=== PATIENT | female | born 1995 | race African-American/Black ===

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

== ENCOUNTER 2017-06-26 20:01 | Emergency (ER) | payer SELFPAY ==
[~2017-06-26] VITALS: Ht 157.5 cm; Wt 53.5 kg
[~2017-06-26 20:01] MED LIST changes: +ATOM60CA; -FERR-74 PO; +FERR325T18 PO; +HYDR-3781; +OXCA150T
--- OUTSIDE RECORDS SUMMARY | 2017-06-26 20:06 | XMS REPORT | Continuity of Care Document ---
Author Author [employer] Organization [facility] Address Unknown Phone Unavailable Care Team Providers Care Bryologist Name Role Phone [employer] Unavailable Unavailable Problems Problem Status Onset Date Classification Date Reported Comments Source Abrasion (disorder) 2015 Diagnosis 09/19/2015 [facility] Medications Allergies, Adverse Reactions, Alerts Substance Category Reaction Severity Reaction type Status Date Reported Comments Source aripiprazole Assertion Drug allergy [facility] Lisdexamfetamine Assertion Drug allergy [facility] Immunizations Results Vital Signs Encounters Location Location Details Encounter Type Encounter Number Reason For Visit Attending Provider ADM Date DC Date Status Source [facility] [id number] Emergency [id number] Kali Boudreaux 09/14/2015 09/14/2015 Active [facility] Procedures Plan of Care Social History Assessment and Plan Family History Advance Directives Functional Status
--- OUTSIDE RECORDS SUMMARY | 2017-06-26 20:06 | XMS REPORT ---
Author Author [facility] Organization [facility] Address Unknown Phone Unavailable Care Team Providers Care Coach Operator Name Role Phone No Family Physician, . PCP Unavailable Encounter [id number] Date(s): 09/14/15 - 09/15/15 [facility] [phone] [place] [address] [facility] Discharge Disposition: Home Attending Physician: Kali Boudreaux MD Admitting Physician: Kali Boudreaux MD Referring Physician: No Family Physician, . Non-Staff Vital Signs No data available for this section Problem List Diagnosis Diagnosis Type Effective Dates Health Status Clinical Service Informant Abrasion Discharge 09/14/15 Emergency Diagnosis medicine Allergies, Adverse Reactions, Alerts Substance Reaction Severity Status Abilify Active Vyvanse Active Medications No data available for this section Results No data available for this section Immunizations No data available for this section Procedures No data available for this section Social History No data available for this section Assessment and Plan No data available for this section
--- OUTSIDE RECORDS SUMMARY | 2017-06-26 20:06 | XMS REPORT ---
Author Author GUI KAUFMAN [facility] eClinical[employer] Address Unknown Phone Unavailable Care Team Providers Care Concrete Block Mason Name Role Phone GUI KAUFMAN Unavailable Allergies, Adverse Reactions, Alerts Substance Reaction Event Type Vyvanse vomiting and diarrhea Drug Allergy Abilify twitching Drug Allergy Problems Problem Type Condition Code Onset Dates Condition Status Problem Long-term use of high-risk medication Z79.899 Active Problem Vitamin D deficiency E55.9 Active Problem Low hemoglobin D64.9 Active Assessment Schizoaffective disorder F25.9 Active Assessment Bipolar disorder, unspecified F31.9 Active Problem Routine gynecological examination Z01.419 Active Problem General counseling and advice on female contraception Z30.09 Active Problem Iron deficiency anemia due to chronic blood loss D50.0 Active Problem Pain in right knee M25.561 Active Problem Chronic fatigue R53.82 Active Problem High risk medication use Z79.899 Active Problem Pain in left knee M25.562 Active Medications Medication Code System Code Instructions Start Date End Date Status Dosage NuvaRing [facility] [address]-67 0.12-0.015 MG/24HR Vaginal x 3 weeks then out x 1 week August 16, 2015 1 ring Vitamin D [facility] [address]-75 2000 UNIT Orally Once a day 1 tablet Vitamin C [facility] [address]-90 250 MG Orally twice a day July 15, 2015 1 tablet Lamictal [facility] [address]-33 25 MG Orally Twice a day September 20, 2015 1 tablet bid x 7 days then 2 am and 1 pm x 1 week then 2 bid Ferrous Sulfate [facility] [address]-64 325 (65 Fe) MG Orally twice a day July 1 tablet Invega [facility] [address]-15 3 MG Orally Once a day July 27, 2015 1 tablet in the morning HydrOXYzine Pamoate [facility] [address]-89 25 MG Orally twice a day July 27, 2015 1 capsule as needed Procedures Procedure Coding System Code Date Office Visit, Est Pt., Level 4 CPT-4 06943 September 20, 2015 Vital Signs Date/Time: September 20, 2015 Cardiac Monitoring Heart Rate 80 bpm Weight 130.0 lbs Height 63.5 in BMIPercentile 64.02 % Wt Percentile 59.16 % Blood Pressure Diastolic 68 mmHg Blood Pressure Systolic 100 mmHg Results No Known Results Summary Purpose eClinicalWorks Submission
--- OUTSIDE RECORDS SUMMARY | 2017-06-26 20:06 | XMS REPORT ---
Author Author CASSANDRA BUSTAMANTE [facility] Address [address] [place] [address] Care Team Providers Care Exhibits Curator Name Role Phone CASSANDRA BUSTAMANTE Unavailable PROBLEMS Type Condition ICD9-CM Code [id number] Code Onset Dates Condition Status SNOMED Code Problem Iron deficiency anemia due to chronic blood loss D50.0 Active 55450798 Problem Bipolar disorder, unspecified F31.9 Active 70644446 Problem Unspecified mood [affective] disorder F39 Active 773004469 Problem Schizoaffective disorder F25.9 Active 19932670 Problem Seasonal allergic rhinitis due to pollen J30.1 Active 94699390 Problem Amenorrhea N91.2 Active 11600281 Problem Attention deficit hyperactivity disorder (ADHD), combined type F90.2 Active 595091848 Problem Bipolar disorder with depression F31.30 Active 61295540 Problem Generalized anxiety disorder F41.1 Active 16770976 Problem Low hemoglobin D64.9 Active 230930817 Problem Chronic fatigue R53.82 Active 95517345 Problem Long-term use of high-risk medication Z79.899 Active 727303908 Problem Vitamin D deficiency E55.9 Active 62228771 Problem Routine gynecological examination Z01.419 Active 999298824 Problem Pain in left knee M25.562 Active 54704788 Problem High risk medication use Z79.899 Active 990550272 Problem Pain in right knee M25.561 Active 87042309 Problem General counseling and advice on female contraception Z30.09 Active 15183363 ALLERGIES Substance Reaction Event Type Date Status Vyvanse vomiting and diarrhea Drug Allergy Apr, Active Abilify twitching Drug Allergy Apr, Active SOCIAL HISTORY Never Assessed PLAN OF CARE Activity Details Follow Up prn Reason: VITAL SIGNS Height 63.5 in 2016-04-19 Weight 128.4 lbs 2016-04-19 Temperature 98.4 degrees Fahrenheit 2016-04-19 Heart Rate 88 bpm 2016-04-19 Respiratory Rate 20 2016-04-19 BMI 22.39 kg/m2 2016-04-19 Blood pressure systolic 96 mmHg 2016-04-19 Blood pressure diastolic 62 mmHg 2016-04-19 MEDICATIONS Medication Instructions Dosage Frequency Start Date End Date Duration Status LaMICtal XR 200 MG Orally Once a day 1 tablet 24h Mar, 30 day(s ) Active Fluticasone Propionate 50 MCG/ACT Nasally Once a day 1 spray in each nostril 24h Apr, 12 months Active Cetirizine HCl 10 mg Orally Once a day 1 tablet 24h Apr, Jan, 90 days Active Strattera 60 MG Orally at bedtime Once a day 1 capsule 24h Mar, 30 days Active BusPIRone HCl 15 MG Orally Three times a day 1 tablet 8h Mar, 30 days Active RESULTS No Results PROCEDURES No Known procedures IMMUNIZATIONS No Known Immunizations MEDICAL (GENERAL) HISTORY Type Description Date Medical History ADHD Medical History MOOD DISORDER Medical History HX OF MRSA Medical History Schizoaffective disorder, unspecified Medical History Generalized anxiety disorder Medical History Bipolar disorder, unspecified Medical History Attention deficit disorder of childhood without mention of hyperactivity Medical History Leukorrhea, not specified as infective Medical History hx of MRSA of elbow Medical History Schizoaffective disorder, unspecified Medical History Generalized anxiety disorder Medical History Bipolar disorder, unspecified Medical History Major depressive disorder, recurrent episode, moderate Medical History Attention deficit disorder of childhood with hyperactivity [facility] Hospitalization History Overdose [facility] 07/17/15
--- OUTSIDE RECORDS SUMMARY | 2017-06-26 20:07 | XMS REPORT ---
Author Author ZAN Flores [facility] Address Unknown Care Team Providers Care House Wrecker Name Role Phone ZAN Flores Unavailable PROBLEMS Type Condition ICD9-CM Code [id number] Code Onset Dates Condition Status SNOMED Code Problem Iron deficiency anemia due to chronic blood loss D50.0 Active 04511893 Problem Bipolar disorder, unspecified F31.9 Active 05634113 Problem Unspecified mood [affective] disorder F39 Active 043964328 Problem Schizoaffective disorder F25.9 Active 42152629 Problem Seasonal allergic rhinitis due to pollen J30.1 Active 92556425 Problem Amenorrhea N91.2 Active 12617037 Problem Attention deficit hyperactivity disorder (ADHD), combined type F90.2 Active 033665419 Problem Bipolar disorder with depression F31.30 Active 56631348 Problem Generalized anxiety disorder F41.1 Active 46913597 Problem Low hemoglobin D64.9 Active 751090884 Problem Chronic fatigue R53.82 Active 31217095 Problem Long-term use of high-risk medication Z79.899 Active 977109639 Problem Vitamin D deficiency E55.9 Active 14931314 Problem Routine gynecological examination Z01.419 Active 650795360 Problem Pain in left knee M25.562 Active 69377288 Problem High risk medication use Z79.899 Active 329602512 Problem Pain in right knee M25.561 Active 71585911 Problem General counseling and advice on female contraception Z30.09 Active 26796636 ALLERGIES No Information SOCIAL HISTORY Never Assessed PLAN OF CARE VITAL SIGNS MEDICATIONS Medication Instructions Dosage Frequency Start Date End Date Duration Status Strattera 40 mg Orally Once a day-Must follow up with for refills 1 capsule in the morning Apr, 14 days Active RESULTS No Results PROCEDURES No [...] disorder of childhood with hyperactivity [facility] Hospitalization History [facility]dose [facility] 07/17/15
--- OUTSIDE RECORDS SUMMARY | 2017-06-26 20:07 | XMS REPORT ---
Author Author [facility], [facility] eClinicalWorks Address Unknown Phone Unavailable Care Team Providers Care Silk Screen Printer Machine Name Role Phone [facility], [facility] CP Unavailable Allergies No Known Allergies Problems Problem Type Condition Code Onset Dates Condition Status Problem Generalized anxiety disorder 300.02 Active Problem Bipolar disorder, unspecified 296.80 Active Problem Schizoaffective disorder, unspecified 295.70 Active Problem Attention deficit disorder of childhood with hyperactivity 314.01 Active Assessment Unspecified mood [affective] disorder F39 Active Problem Major depressive disorder, recurrent episode, moderate 296.32 Active Problem Leukorrhea, not specified as infective 623.5 Active Medications No Known Medications Procedures Procedure Coding System Code Date PATIENT AND FAMILY SUPPORT CPT-4 S0280 Mar 10, 2015 Results No Known Results Summary Purpose eClinicalWorks Submission
--- OUTSIDE RECORDS SUMMARY | 2017-06-26 20:07 | XMS REPORT ---
Author Author [facility], [facility] eClinicalWorks Address Unknown Phone Unavailable Care Team Providers Care Project Analyst Name Role Phone [facility], [facility] CP Unavailable Allergies No Known [...] Medications Procedures Procedure Coding System Code Date HEALTH PROMOTION CPT-4 S0280 Jan 04, 2015 Results No Known Results Summary Purpose eClinicalWorks Submission
--- OUTSIDE RECORDS SUMMARY | 2017-06-26 20:07 | XMS REPORT ---
Author Author [facility], [facility] eClinicalWorks Address Unknown Phone Unavailable Care Team Providers Care Riveting Machine Operator Tape Control Name Role Phone [facility], [facility] CP Unavailable Allergies No Known Allergies [...] Medications Procedures Procedure Coding System Code Date CARE COORDINATION CPT-4 S0281 Dec 30, 2014 Results No Known Results Summary Purpose eClinicalWorks Submission
--- OUTSIDE RECORDS SUMMARY | 2017-06-26 20:07 | XMS REPORT ---
Author Author ZAN KU Organization [employer] Address Unknown Phone Unavailable Care Team Providers Care Price Economist Name Role Phone ZAN KU Unavailable Allergies No Known Allergies Problems Problem Type Condition Code Onset Dates Condition Status Problem Generalized anxiety disorder 300.02 Active Problem Bipolar disorder, unspecified 296.80 Active Problem Schizoaffective disorder, unspecified 295.70 Active Problem Attention deficit disorder of childhood with hyperactivity 314.01 Active Problem Major depressive disorder, recurrent episode, moderate 296.32 Active Problem Leukorrhea, not specified as infective 623.5 Active Medications Medication Code System Code Instructions Start Date End Date Status Dosage Sertraline HCl [facility] [address]-66 100 MG Orally Once a day Nov 10, 2014 1.5 tablets Results No Known Results Summary Purpose eClinicalWorks Submission
--- OUTSIDE RECORDS SUMMARY | 2017-06-26 20:07 | XMS REPORT ---
Author Author ZAN Flores [facility] Address Unknown Care Team Providers Care Quotation Checker Name Role Phone AZN Flores Unavailable PROBLEMS Type Condition ICD9-CM Code [id number] Code Onset Dates Condition Status SNOMED Code Problem Iron deficiency anemia due to chronic blood loss D50.0 Active 08494699 Problem Bipolar disorder, unspecified F31.9 Active 16825799 Problem Unspecified mood [affective] disorder F39 Active 392821950 Problem Schizoaffective disorder F25.9 Active 98717370 Problem Seasonal allergic rhinitis due to pollen J30.1 Active 50979641 Problem Amenorrhea N91.2 Active 98551582 Problem Attention deficit hyperactivity disorder (ADHD), combined type F90.2 Active 310921856 Problem Bipolar disorder with depression F31.30 Active 33995506 Problem Generalized anxiety disorder F41.1 Active 00667663 Problem Low hemoglobin D64.9 Active 352454916 Problem Chronic fatigue R53.82 Active 22793125 Problem Long-term use of high-risk medication Z79.899 Active 865798056 Problem Vitamin D deficiency E55.9 Active 89211435 Problem Routine gynecological examination Z01.419 Active 248134909 Problem Pain in left knee M25.562 Active 59638388 Problem High risk medication use Z79.899 Active 971627812 Problem Pain in right knee M25.561 Active 39224888 Problem General counseling and advice on female contraception Z30.09 Active 08351542 ALLERGIES Substance Reaction Event Type Date Status Vyvanse vomiting and diarrhea Drug Allergy May, Active Abilify twitching Drug Allergy May, Active SOCIAL HISTORY Never Assessed PLAN OF CARE Activity Details Follow Up 4 Weeks Reason: VITAL SIGNS Height 63.5 in 2016-05-09 Weight 123.4 lbs 2016-05-09 Heart Rate 80 bpm 2016-05-09 Respiratory Rate 20 2016-05-09 BMI 21.51 kg/m2 2016-05-09 Blood pressure systolic 102 mmHg 2016-05-09 Blood pressure diastolic 73 mmHg 2016-05-09 MEDICATIONS Medication Instructions Dosage Frequency Start Date End Date Duration Status HydrOXYzine Pamoate 25 MG Orally twice a day 1 capsule as needed 12h July 30 days Active Fluticasone Propionate 50 MCG/ACT Nasally Once a day 1 spray in each nostril 24h Apr, 12 months Active Cetirizine HCl 10 mg Orally Once a day 1 tablet 24h Apr, Jan, 90 days Active BusPIRone HCl 15 MG Orally Three times a day 1 tablet 8h Mar, 30 days Active Strattera 60 MG Orally at bedtime Once a day 1 capsule 24h Mar, 30 days Active Trileptal 150 MG Orally twice a day 1 tablet 12h Jan, 30 days Active LaMICtal XR 200 MG Orally Once a day 1 tablet 24h Mar, 30 day(s ) Active RESULTS No Results PROCEDURES No Known [...] disorder of childhood with hyperactivity Hospitalization History [facility] Mental Breakdown 05/2015 Hospitalization History Overdose [facility] 07/17/15
--- OUTSIDE RECORDS SUMMARY | 2017-06-26 20:07 | XMS REPORT ---
Author Author ZAN KU Organization [employer] Address Unknown Phone Unavailable Care Team Providers Care Burlapper Name Role Phone ZAN KU Unavailable Allergies No Known Allergies Problems Problem Type Condition Code Onset Dates Condition Status Problem Long-term use of high-risk medication Z79.899 Active Problem Vitamin D deficiency E55.9 Active Problem Low hemoglobin D64.9 Active Problem Routine gynecological examination Z01.419 Active [...] Instructions Start Date End Date Status Dosage Paxil [facility] [address]-94 20 mg Orally Once a day July 27, 2015 1 tablet in the morning Results No Known Results Summary Purpose eClinicalWorks Submission
--- OUTSIDE RECORDS SUMMARY | 2017-06-26 20:07 | XMS REPORT ---
Author Author ZAN KU [facility] Address Unknown Care Team Providers Care Dev Manager Name Role Phone ZAN KU Unavailable PROBLEMS Type Condition ICD9-CM Code [id number] Code Onset Dates Condition Status SNOMED Code Problem Low hemoglobin D64.9 Active 027146433 Problem Chronic fatigue R53.82 Active 03103779 Problem Vitamin D deficiency E55.9 Active 17769301 Problem Long-term use of high-risk medication Z79.899 Active 057229718 Problem Iron deficiency anemia due to chronic blood loss D50.0 Active 60600959 Problem Routine gynecological examination Z01.419 Active 396010556 Problem Pain in left knee M25.562 Active 11314254 Problem Pain in right knee M25.561 Active 77917080 Problem General counseling and advice on female contraception Z30.09 Active 95985029 Problem High risk medication use Z79.899 Active 757816901 ALLERGIES Unknown Allergies SOCIAL HISTORY No smoking Hx information available PLAN OF CARE VITAL SIGNS MEDICATIONS Medication Instructions Dosage Frequency Start Date End Date Duration Status BusPIRone HCl 5 mg Orally. must attend appt for further refills Three times a day 1 tablet 8h 12 Nov, 2015 Active RESULTS No Results PROCEDURES No Known procedures IMMUNIZATIONS No Known Immunizations
--- OUTSIDE RECORDS SUMMARY | 2017-06-26 20:08 | XMS REPORT ---
Author Author ZAN KU [facility] Address Unknown Care Team Providers Care Guest Relations Executive Name Role Phone ZAN KU Unavailable PROBLEMS Type Condition ICD9-CM Code [id number] Code Onset Dates Condition Status SNOMED Code Problem Pain in right knee M25.561 Active 92846667 Problem High risk medication use Z79.899 Active 236545343 Problem Pain in left knee M25.562 Active 55380991 Problem Long-term use of high-risk medication Z79.899 Active 850552505 Problem Low hemoglobin D64.9 Active 038190855 Problem Vitamin D deficiency E55.9 Active 49179903 Problem Chronic fatigue R53.82 Active 06118622 Problem Unspecified mood [affective] disorder F39 Active 956785956 Problem Bipolar disorder, unspecified F31.9 Active 90944637 Problem Routine gynecological examination Z01.419 Active 323222281 Problem General counseling and advice on female contraception Z30.09 Active 84630366 Problem Attention deficit hyperactivity disorder (ADHD), combined type F90.2 Active 814768064 Problem Iron deficiency anemia due to chronic blood loss D50.0 Active 34767486 ALLERGIES Unknown Allergies SOCIAL HISTORY No smoking Hx information available PLAN OF CARE VITAL SIGNS MEDICATIONS Unknown Medications RESULTS No Results PROCEDURES No Known procedures IMMUNIZATIONS No Known Immunizations
--- OUTSIDE RECORDS SUMMARY | 2017-06-26 20:08 | XMS REPORT ---
Author Author [facility], [facility] eClinicalWorks Address Unknown Phone Unavailable Care Team Providers Care Satellite Manager Name Role Phone [facility], [facility] CP Unavailable Allergies No Known Allergies Problems [...] System Code Date HEALTH PROMOTION CPT-4 S0280 Apr 14, 2015 Results No Known Results Summary Purpose eClinicalWorks Submission
--- OUTSIDE RECORDS SUMMARY | 2017-06-26 20:08 | XMS REPORT ---
Author Author ZAN KU Organization eClinicalWorks Address Unknown Phone Unavailable Care Team Providers Care Print Production Coordinator Name Role Phone ZAN KU Unavailable Allergies No Known Allergies Problems Problem Type Condition ICD-9 Code Onset Dates Condition Status Problem Generalized [...] Date End Date Status Dosage Sertraline HCl [facility] [address]-66 100 MG Orally Once a day September 27, 2014 1 tablet Concerta [facility] [address]-40 18 MG Orally Once a day 1 tablet in the morning Lamictal [facility] [address]-63 100 MG Orally Once a day q August 23, 2014 1 tablet Results No Known Results Summary Purpose eClinicalWorks Submission
--- OUTSIDE RECORDS SUMMARY | 2017-06-26 20:08 | XMS REPORT ---
Author Author [facility], [facility] eClinicalWorks Address Unknown Phone Unavailable Care Team Providers Care Distribution Operations Supervisor Name Role Phone [facility], [facility] CP Unavailable Allergies No Known Allergies Problems Problem Type Condition Code Onset Dates Condition Status Problem Generalized anxiety disorder 300.02 Active Problem Bipolar disorder, unspecified 296.80 Active Problem Schizoaffective disorder, unspecified 295.70 Active Problem Attention deficit disorder of childhood with hyperactivity 314.01 Active Assessment Bipolar disorder, unspecified F31.9 Active Problem Major depressive disorder, recurrent episode, moderate 296.32 Active Problem Leukorrhea, not specified as infective 623.5 Active Medications No Known Medications Procedures Procedure Coding System Code Date CARE COORDINATION CPT-4 S0281 Feb 01, 2015 Results No Known Results Summary Purpose eClinicalWorks Submission
--- OUTSIDE RECORDS SUMMARY | 2017-06-26 20:08 | XMS REPORT ---
Author Author [facility], [facility] eClinicalWorks Address Unknown Phone Unavailable Care Team Providers Care Machine Hoop Maker Helper Name Role Phone [facility], [facility] CP Unavailable Allergies No Known [...] Code Date CARE COORDINATION CPT-4 S0281 Dec 28, 2014 Results No Known Results Summary Purpose eClinicalWorks Submission
--- OUTSIDE RECORDS SUMMARY | 2017-06-26 20:08 | XMS REPORT ---
Author Author ZAN KU Organization eClinicalWorks Address Unknown Phone Unavailable Care Team Providers Care Rivet Heater Gas Name Role Phone ZAN KU Unavailable Allergies [...] Instructions Start Date End Date Status Dosage Concerta [facility] [address]-43 27 MG Briana to sign for Matthew TAKE ONE TABLET BY MOUTH ONCE DAILY IN THE MORNING Results No Known Results Summary Purpose eClinicalWorks Submission
--- OUTSIDE RECORDS SUMMARY | 2017-06-26 20:08 | XMS REPORT ---
Author Author ZAN KU Organization eClinicalWorks Address Unknown Phone Unavailable Care Team Providers Care Coal Tram Driver Name Role Phone ZAN KU Unavailable Allergies [...] infective 623.5 Active Medications No Known Medications Results No Known Results Summary Purpose eClinicalWorks Submission
--- OUTSIDE RECORDS SUMMARY | 2017-06-26 20:08 | XMS REPORT ---
Author Author [facility], [facility] eClinicalWorks Address Unknown Phone Unavailable Care Team Providers Care Turf Grower Name Role Phone [facility], [facility] CP Unavailable Allergies No Known Allergies [...] Code Date CARE COORDINATION CPT-4 S0281 Dec 29, 2014 Results No Known Results Summary Purpose eClinicalWorks Submission
--- OUTSIDE RECORDS SUMMARY | 2017-06-26 20:08 | XMS REPORT ---
Author Author ZAN KU Organization eClinicalWorks Address Unknown Phone Unavailable Care Team Providers Care Order Runner Name Role Phone ZAN KU CP Unavailable Allergies, Adverse Reactions, Alerts Substance Reaction Event Type Vyvanse vomiting and diarrhea Drug Allergy Abilify twitching Drug Allergy Vyvanse 30 Mg Capsule diarrhea and vomiting Non Drug Allergy Problems Problem Type Condition Code Onset Dates Condition Status Assessment Attention deficit hyperactivity disorder (ADHD), combined type F90.2 Active Problem Generalized anxiety disorder 300.02 Active Problem Bipolar disorder, unspecified 296.80 Active Problem Schizoaffective disorder, unspecified 295.70 Active Problem Attention deficit disorder of childhood with hyperactivity 314.01 Active Assessment Schizoaffective disorder F25.9 Active Problem Major depressive disorder, recurrent episode, moderate 296.32 Active Problem Leukorrhea, not specified as infective 623.5 Active Medications Medication Code System Code Instructions Start Date End Date Status Dosage Concerta [facility] 16387949988 27 MG TAKE ONE TABLET BY MOUTH ONCE DAILY IN THE MORNING Lamictal [facility] [address]-16 150 MG Orally once a day Dec 10, 2014 1 tablet Sertraline HCl [facility] [address]-09 100 MG Orally Once a day Nov 10, 2014 1.5 tablets Procedures Procedure Coding System Code Date Office Visit, Est Pt., Level 3 CPT-4 69458 Dec 10, 2014 Vital Signs Date/Time: Dec 10, 2014 Cardiac Monitoring Heart Rate 92 bpm Weight 116.6 lbs Height 63.3 in Ht Percentile 36.21 % BMI 20.46 Index Blood Pressure Diastolic 60 mmHg Blood Pressure Systolic 90 mmHg BMIPercentile 40.79 % Wt Percentile 36.1 % Results No Known Results Summary Purpose eClinicalWorks Submission
--- OUTSIDE RECORDS SUMMARY | 2017-06-26 20:08 | XMS REPORT ---
Author Author ZAN KU Organization eClinicalWorks Address Unknown Phone Unavailable Care Team Providers Care Benefits Sales Consultant Name Role Phone ZAN KU CP Unavailable Allergies, Adverse Reactions, Alerts Substance Reaction Event Type Vyvanse vomiting and diarrhea Drug Allergy Abilify twitching Drug Allergy Vyvanse 30 Mg Capsule diarrhea and vomiting Non Drug Allergy Problems Problem Type Condition Code Onset Dates Condition Status Assessment Episodic mood disorder 296.90 Active Assessment Bipolar disorder, unspecified F31.9 Active Problem Generalized anxiety disorder 300.02 Active Problem Bipolar disorder, unspecified 296.80 Active Problem Schizoaffective disorder, unspecified 295.70 Active Problem Attention deficit disorder of childhood with hyperactivity 314.01 Active Assessment Attention deficit hyperactivity disorder (ADHD), combined type F90.2 Active Problem Major depressive disorder, recurrent episode, moderate 296.32 Active Problem Leukorrhea, not specified as infective 623.5 Active Medications Medication Code System Code Instructions Start Date End Date Status Dosage Concerta [facility] [address]-[address] Steve to sign for Matthew TAKE ONE TABLET BY MOUTH ONCE DAILY IN THE MORNING Trileptal [facility] [address]-31 150 MG Orally twice a day Jan 07, 2015 1 tablet Sertraline HCl [facility] [address]-55 100 MG Orally Once a day Nov 10, 2014 1.5 tablets Procedures Procedure Coding System Code Date Office Visit, Est Pt., Level 3 CPT-4 28156 Feb 11, 2015 Vital Signs Date/Time: Feb 11, 2015 Cardiac Monitoring Heart Rate 76 bpm Weight 118.8 lbs Height 63.5 in Ht Percentile 39.02 % BMI 20.71 Index Blood Pressure Diastolic 80 mmHg Blood Pressure Systolic 110 mmHg BMIPercentile 43.44 % Wt Percentile 40.15 % Results No Known Results Summary Purpose eClinicalWorks Submission
--- OUTSIDE RECORDS SUMMARY | 2017-06-26 20:08 | XMS REPORT ---
Author [facility] Address [address] [place] [address] Care Team Providers Care Privacy Director Name Role Phone ZAN DUBOIS Unavailable PROBLEMS Type Condition ICD9-CM Code [id number] Code Onset Dates Condition Status SNOMED Code Problem Pain in right knee M25.561 Active 75052143 Problem High risk medication use Z79.899 Active 658726044 Problem Pain in left knee M25.562 Active 79974810 Problem Long-term use of high-risk medication Z79.899 Active 312717829 Problem Low hemoglobin D64.9 Active 198580373 Problem Vitamin D deficiency E55.9 Active 63030629 Problem Chronic fatigue R53.82 Active 75346007 Problem Unspecified mood [affective] disorder F39 Active 519841935 Problem Bipolar disorder, unspecified F31.9 Active 81181715 Problem Routine gynecological examination Z01.419 Active 330230117 Problem General counseling and advice on female contraception Z30.09 Active 76192329 Problem Attention deficit hyperactivity disorder (ADHD), combined type F90.2 Active 278758480 Problem Iron deficiency anemia due to chronic blood loss D50.0 Active 69190231 ALLERGIES Unknown Allergies SOCIAL HISTORY No smoking Hx information available PLAN OF CARE VITAL SIGNS MEDICATIONS Unknown Medications RESULTS No Results PROCEDURES No Known procedures IMMUNIZATIONS No Known Immunizations
--- OUTSIDE RECORDS SUMMARY | 2017-06-26 20:08 | XMS REPORT ---
Author Author ZAN KU [facility] Address Unknown Care Team Providers Care Hazardous Substances Scientist Name Role Phone ZAN KU Unavailable PROBLEMS Type Condition ICD9-CM Code [id number] Code Onset Dates Condition Status SNOMED Code Problem Pain in right knee M25.561 Active 75197289 Problem High risk medication use Z79.899 Active 661463724 Problem Pain in left knee M25.562 Active 85814650 Problem Long-term use of high-risk medication Z79.899 Active 110038612 Problem Low hemoglobin D64.9 Active 529251533 Problem Vitamin D deficiency E55.9 Active 84570711 Problem Chronic fatigue R53.82 Active 81347152 Problem Unspecified mood [affective] disorder F39 Active 898462259 Problem Bipolar disorder, unspecified F31.9 Active 31800053 Problem Routine gynecological examination Z01.419 Active 435614916 Problem General counseling and advice on female contraception Z30.09 Active 82467325 Problem Attention deficit hyperactivity disorder (ADHD), combined type F90.2 Active 236539044 Problem Iron deficiency anemia due to chronic blood loss D50.0 Active 79255948 ALLERGIES Unknown Allergies SOCIAL HISTORY No smoking Hx information available PLAN OF CARE VITAL SIGNS MEDICATIONS Unknown Medications RESULTS No Results PROCEDURES No Known procedures IMMUNIZATIONS No Known Immunizations
--- OUTSIDE RECORDS SUMMARY | 2017-06-26 20:08 | XMS REPORT ---
Author Author [facility], [facility] eClinicalWorks Address Unknown Phone Unavailable Care Team Providers Care Claim Adjuster Name Role Phone [facility], [facility] CP Unavailable Allergies No Known Allergies Problems Problem Type Condition ICD-9 Code Onset Dates Condition Status Problem Generalized anxiety disorder 300.02 Active Problem Bipolar disorder, unspecified 296.80 Active Problem Schizoaffective disorder, unspecified 295.70 Active Problem Attention deficit disorder of childhood with hyperactivity 314.01 Active Assessment Affective disorder 296.90 Active Problem Major depressive disorder, recurrent episode, moderate 296.32 Active Problem Leukorrhea, not specified as infective 623.5 Active Medications No Known Medications Procedures Procedure Coding System Code Date CARE COORDINATION CPT-4 S0281 Oct 22, 2014 Results No Known Results Summary Purpose eClinicalWorks Submission
--- OUTSIDE RECORDS SUMMARY | 2017-06-26 20:08 | XMS REPORT ---
Author Author ZAN KU Organization eClinicalWorks Address Unknown Phone Unavailable Care Team Providers Care Clerk Typist Name Role Phone ZAN KU Unavailable Allergies [...]
--- OUTSIDE RECORDS SUMMARY | 2017-06-26 20:08 | XMS REPORT ---
Author Author GUI KAUFMAN [facility] Address [address] [place] [address] Care Team Providers Care Voyage Management System Operator Name Role Phone GUI KAUFMAN Unavailable PROBLEMS Type Condition ICD9-CM Code [id number] Code Onset Dates Condition Status SNOMED Code Problem Pain in left knee M25.562 Active 54293543 Problem General counseling and advice on female contraception Z30.09 Active 48048485 Problem High risk medication use Z79.899 Active 081133286 Problem Amenorrhea N91.2 Active 18466072 Problem Unspecified mood [affective] disorder F39 Active 296930394 Problem Iron deficiency anemia due to chronic blood loss D50.0 Active 21460209 Problem Routine gynecological examination Z01.419 Active 533018643 Problem Bipolar disorder, unspecified F31.9 Active 17790244 Problem Attention deficit hyperactivity disorder (ADHD), combined type F90.2 Active 906816585 Problem Low hemoglobin D64.9 Active 851953502 Problem Vitamin D deficiency E55.9 Active 14056593 Assessment Amenorrhea N91.2 Jan, Active 16091095 Problem Chronic fatigue R53.82 Active 77625382 Problem Long-term use of high-risk medication Z79.899 Active 985737122 Problem Pain in right knee M25.561 Active 79671311 ALLERGIES Substance Reaction Event Type Date Status Vyvanse vomiting and diarrhea Drug Allergy Jan, Active Abilify twitching Drug Allergy Jan, Active SOCIAL HISTORY No smoking Hx information available PLAN OF CARE VITAL SIGNS Height 63.5 in 2016-01-31 Weight 131 lbs 2016-01-31 Heart Rate 90 bpm 2016-01-31 Respiratory Rate 20 2016-01-31 BMI 22.84 kg/m2 2016-01-31 Blood pressure systolic 100 mmHg 2016-01-31 Blood pressure diastolic 60 mmHg 2016-01-31 MEDICATIONS Medication Instructions Dosage Frequency Start Date End Date Duration Status Lamictal 150 MG Orally twice a day 0.5 tablet 12h Dec, 30 day(s ) Active Invega 6 MG Orally Once a day 1 tablet in the morning 24h Dec, 30 day(s) Active BusPIRone HCl 5 mg Orally. must attend appt for further refills Three times a day 1 tablet 8h 12 Nov, 2015 Active RESULTS Name Result Date Reference Range TEST, URINE (IN HOUSE) 2016-01-31 RESULTS negative Lot # [id number] Control + Exp date 05/2017 TEST, SERUM (QUAL) 2016-01-31 hCG,Beta Subunit,Qual,Serum Negative Negative <6 CBC 2016-01-31 WBC 7.9 3.4-10.8 RBC 4.35 3.77-5.28 Hemoglobin 12.5 11.1-15.9 Hematocrit 38.6 34.0-46.6 MCV 89 79-97 MCH 28.7 26.6-33.0 MCHC 32.4 31.5-35.7 RDW 15.2 12.3-15.4 Platelets 311 150-379 Neutrophils 54 Lymphs 31 Monocytes 8 Eos 7 Basos 0 Neutrophils (Absolute) 4.3 1.4-7.0 Lymphs (Absolute) 2.4 0.7-3.1 Monocytes(Absolute) 0.6 0.1-0.9 Eos (Absolute) 0.5 0.0-0.4 Baso (Absolute) 0.0 0.0-0.2 Immature Granulocytes 0 Immature Grans (Abs) 0.0 0.0-0.1 VITAMIN D, 25-H 2016-01-31 Vitamin D, 25-Hydroxy 42.6 30.0-100.0 PROCEDURES Procedure Date Ordered Related Diagnosis Body Site URINE TEST Jan 31[facility] 2016 [facility] Jan [facility], 2016 VENIPUNCT, ROUTINE* Jan 31, 2016 CHORIONIC GONADOTROPIN ASSAY Jan 31, 2016 Office Visit, Est Pt., Level 3 Jan 31, 2016 IMMUNIZATIONS No Known Immunizations
--- OUTSIDE RECORDS SUMMARY | 2017-06-26 20:09 | XMS REPORT ---
Author Author ZAN KU Organization [facility] Address Unknown Care Team Providers Care Delicatessen Goods Stock Clerk Name Role Phone KINGS ZAN Unavailable PROBLEMS Type Condition ICD9-CM Code [id number] Code Onset Dates Condition Status SNOMED Code Problem Iron deficiency anemia due to chronic blood loss D50.0 Active 80556161 Problem Bipolar disorder, unspecified F31.9 Active 20888256 Problem Attention deficit hyperactivity disorder (ADHD), combined type F90.2 Active 946860106 Problem Schizoaffective disorder F25.9 Active 62246499 Problem Seasonal allergic rhinitis due to pollen J30.1 Active 23027603 Problem Amenorrhea N91.2 Active 84894338 Problem Unspecified mood [affective] disorder F39 Active 312343590 Problem Bipolar disorder with depression F31.30 Active 69458011 Problem Generalized anxiety disorder F41.1 Active 55016938 Problem Low hemoglobin D64.9 Active 957013539 Problem Vitamin D deficiency E55.9 Active 41507220 Problem Long-term use of high-risk medication Z79.899 Active 315227988 Problem Pain in left knee M25.562 Active 32409145 Problem High risk medication use Z79.899 Active 543214719 Problem Chronic fatigue R53.82 Active 56263830 Problem General counseling and advice on female contraception Z30.09 Active 04197164 Problem Pain in right knee M25.561 Active 73151529 Problem Routine gynecological examination Z01.419 Active 291883135 ALLERGIES Unknown Allergies SOCIAL HISTORY No smoking Hx information available PLAN OF CARE VITAL SIGNS MEDICATIONS Unknown Medications RESULTS Name Result Date Reference Range PROLACTIN 2016-03-02 Prolactin 78.9 4.8-23.3 PROCEDURES Procedure Date Ordered Related Diagnosis Body Site LAB NOT BILLED BY [facility] Mar 02, 2016 VENIPUNCT, ROUTINE* Mar 02, 2016 IMMUNIZATIONS No Known Immunizations
--- OUTSIDE RECORDS SUMMARY | 2017-06-26 20:09 | XMS REPORT ---
Author Author ZAN KU Organization eClinicalWorks Address Unknown Phone Unavailable Care Team Providers Care Residential Specialist Name Role Phone ZAN KU Unavailable Allergies [...] Instructions Start Date End Date Status Dosage Lamictal [facility] [address]-43 25 MG Orally Twice a day September 20, 2015 1 tablet bid x 7 days then 2 am and 1 pm x 1 week then 2 bid Results No Known Results Summary Purpose eClinicalWorks Submission
--- OUTSIDE RECORDS SUMMARY | 2017-06-26 20:09 | XMS REPORT ---
Author Author ZAN KU Organization eClinicalWorks Address Unknown Phone Unavailable Care Team Providers Care Telephone Mechanic Name Role Phone ZAN KU CP Unavailable Allergies, Adverse Reactions, Alerts Substance Reaction Event Type Vyvanse vomiting and diarrhea Drug Allergy Abilify twitching Drug Allergy Vyvanse 30 Mg Capsule diarrhea and vomiting Non Drug Allergy Problems Problem Type Condition ICD-9 Code Onset Dates Condition Status Assessment Generalized anxiety disorder 300.02 Active Assessment Attention deficit disorder of childhood with hyperactivity 314.01 Active Problem Generalized anxiety disorder 300.02 Active Problem Bipolar disorder, unspecified 296.80 Active Problem Schizoaffective disorder, unspecified 295.70 Active Problem Attention deficit disorder of childhood with hyperactivity 314.01 Active Assessment Schizoaffective disorder, unspecified 295.70 Active Problem Major depressive disorder, recurrent episode, moderate 296.32 Active Problem Leukorrhea, not specified as infective 623.5 Active Medications Medication Code System Code Instructions Start Date End Date Status Dosage Concerta [facility] [address]-41 27 MG Orally Once a day Nov 10, 2014 Dec 10, 2014 1 tablet in the morning Sertraline HCl [facility] [address]-23 100 MG Orally Once a day Nov 10, 2014 1.5 tablets Lamictal [facility] [address]-47 100 MG Orally Once a day August 23, 2014 1 tablet Procedures Procedure Coding System Code Date Office Visit, Est Pt., Level 3 CPT-4 57344 Nov 10, 2014 Vital Signs Date/Time: Nov 10, 2014 Temperature 98.3 F BMIPercentile 38.12 % Weight 115.0 lbs Height 63.2 in BMI 20.24 Index Blood Pressure Diastolic 65 mmHg Blood Pressure Systolic 100 mmHg Cardiac Monitoring Heart Rate 88 bpm Wt Percentile 32.93 % Ht Percentile 34.87 % Results No Known Results Summary Purpose eClinicalWorks Submission
--- OUTSIDE RECORDS SUMMARY | 2017-06-26 20:09 | XMS REPORT ---
Author Author ZAN KU Organization eClinicalWorks Address Unknown Phone Unavailable Care Team Providers Care Composite Layup Worker Name Role Phone ZAN KU CP Unavailable Allergies, Adverse Reactions, Alerts Substance Reaction Event Type Vyvanse vomiting and diarrhea Drug Allergy Abilify twitching Drug Allergy Vyvanse 30 Mg Capsule diarrhea and vomiting Non Drug Allergy Problems Problem Type Condition Code Onset Dates Condition Status Assessment Bipolar disorder, unspecified F31.9 Active Problem [...] Instructions Start Date End Date Status Dosage Trileptal [facility] [address]-00 150 MG Orally twice a day Jan 07, 2015 as directed Sertraline HCl [facility] [address]-83 100 MG Orally Once a day Nov 10, 2014 1.5 tablets Concerta [facility] [address]-[address] Steve to sign for Matthew TAKE ONE TABLET BY MOUTH ONCE DAILY IN THE MORNING Procedures Procedure Coding System Code Date Office Visit, Est Pt., Level 3 CPT-4 66621 Jan 07, 2015 Vital Signs Date/Time: Jan 07, 2015 Cardiac Monitoring Heart Rate 102 bpm Weight 117.9 lbs Height 63.2 in Ht Percentile 34.69 % BMI 20.75 Index Blood Pressure Diastolic 65 mmHg Blood Pressure Systolic 100 mmHg BMIPercentile 44.37 % Wt Percentile 38.57 % Results No Known Results Summary Purpose eClinicalWorks Submission
--- OUTSIDE RECORDS SUMMARY | 2017-06-26 20:09 | XMS REPORT ---
Author Author [facility], [facility] eClinicalWorks Address Unknown Phone Unavailable Care Team Providers Care Councilperson Name Role Phone [facility], [facility] CP Unavailable Allergies No Known Allergies [...] PATIENT AND FAMILY SUPPORT CPT-4 S0280 Mar 28, 2015 Results No Known Results Summary Purpose eClinicalWorks Submission
--- OUTSIDE RECORDS SUMMARY | 2017-06-26 20:09 | XMS REPORT ---
Author Author [facility], [facility] eClinicalWorks Address Unknown Phone Unavailable Care Team Providers Care Exploration Geologist Name Role Phone [facility], [facility] CP Unavailable Allergies No Known Allergies [...] System Code Date HEALTH PROMOTION CPT-4 S0280 Nov 25, 2014 Results No Known Results Summary Purpose eClinicalWorks Submission
--- OUTSIDE RECORDS SUMMARY | 2017-06-26 20:09 | XMS REPORT ---
Author Author [facility], [facility] eClinicalWorks Address Unknown Phone Unavailable Care Team Providers Care Structural Drafter Name Role Phone [facility], [facility] CP Unavailable Allergies No Known [...] Code Date HEALTH PROMOTION CPT-4 S0280 Jan 07, 2015 Results No Known Results Summary Purpose eClinicalWorks Submission
--- OUTSIDE RECORDS SUMMARY | 2017-06-26 20:09 | XMS REPORT ---
Author Author [facility], [facility] eClinicalWorks Address Unknown Phone Unavailable Care Team Providers Care Director Of Annual Giving Name Role Phone [facility], [facility] CP Unavailable Allergies No Known Allergies [...] System Code Date HEALTH PROMOTION CPT-4 S0280 Feb 07, 2015 Results No Known Results Summary Purpose eClinicalWorks Submission
--- OUTSIDE RECORDS SUMMARY | 2017-06-26 20:09 | XMS REPORT ---
Author Author ZAN KU [facility] Address Unknown Care Team Providers Care Distribution Agent Name Role Phone ZAN KU Unavailable PROBLEMS Type Condition ICD9-CM Code [id number] Code Onset Dates Condition Status SNOMED Code Problem Iron deficiency anemia due to chronic blood loss D50.0 Active 01887173 Problem Bipolar disorder, unspecified F31.9 Active 29189573 Problem Attention deficit hyperactivity disorder (ADHD), combined type F90.2 Active 642511925 Problem Schizoaffective disorder F25.9 Active 93089929 Problem Seasonal allergic rhinitis due to pollen J30.1 Active 60170938 Problem Amenorrhea N91.2 Active 20616130 Problem Unspecified mood [affective] disorder F39 Active 251779502 Problem Bipolar disorder with depression F31.30 Active 57179823 Problem Generalized anxiety disorder F41.1 Active 87590180 Problem Low hemoglobin D64.9 Active 793917566 Problem Vitamin D deficiency E55.9 Active 35037914 Problem Long-term use of high-risk medication Z79.899 Active 862772178 Problem Pain in left knee M25.562 Active 10097578 Problem High risk medication use Z79.899 Active 620588910 Problem Chronic fatigue R53.82 Active 08454871 Problem General counseling and advice on female contraception Z30.09 Active 19384075 Problem Pain in right knee M25.561 Active 23263255 Problem Routine gynecological examination Z01.419 Active 434880083 ALLERGIES Unknown Allergies SOCIAL HISTORY No smoking Hx information available PLAN OF CARE VITAL SIGNS MEDICATIONS Unknown Medications RESULTS No Results PROCEDURES No Known procedures IMMUNIZATIONS No Known Immunizations
--- OUTSIDE RECORDS SUMMARY | 2017-06-26 20:09 | XMS REPORT ---
Author Author ZAN KU Organization [employer] Address Unknown Phone Unavailable Care Team Providers Care Ingredient Handler Name Role Phone ZAN KU Unavailable Allergies [...]
--- OUTSIDE RECORDS SUMMARY | 2017-06-26 20:09 | XMS REPORT ---
Author Author [facility], [facility] [employer] Address Unknown Phone Unavailable Care Team Providers Care Contact Center Analyst Name Role Phone [facility], [facility] CP Unavailable Allergies No Known Allergies Problems [...] Code Date HEALTH PROMOTION CPT-4 S0280 Feb 04, 2015 Results No Known Results Summary Purpose eClinicalWorks Submission
--- OUTSIDE RECORDS SUMMARY | 2017-06-26 20:09 | XMS REPORT ---
Author Author CHARLIE FRIAS [employer] Address Unknown Phone Unavailable Care Team Providers Care Open Hearth Worker Name Role Phone CHARLIE FRIAS CP Unavailable Allergies, Adverse Reactions, Alerts Substance Reaction Event Type Vyvanse vomiting and diarrhea Drug Allergy Abilify twitching Drug Allergy Vyvanse 30 Mg Capsule diarrhea and vomiting Non Drug Allergy Problems Problem Type Condition Code Onset Dates Condition Status Assessment High risk sexual behavior Z72.51 Active Problem Generalized anxiety disorder 300.02 Active Problem Bipolar disorder, unspecified 296.80 Active Problem Schizoaffective disorder, unspecified 295.70 Active Problem Attention deficit disorder of childhood with hyperactivity 314.01 Active Assessment Menstrual period late N91.0 Active Problem Major depressive disorder, recurrent episode, moderate 296.32 Active Problem Leukorrhea, not specified as infective 623.5 Active Medications No Known Medications Procedures Procedure Coding System Code Date URINE TEST CPT-4 67861 Mar 30, 2015 Results Name Result Date Reference Range Unit Abnormality Flag TEST, URINE (IN HOUSE) ----RESULTS negative [id number] ----Lot # [id number] ----Control + [id number] ----Exp date 20150330 Summary Purpose eClinicalWorks Submission
--- OUTSIDE RECORDS SUMMARY | 2017-06-26 20:09 | XMS REPORT ---
Author Author ZAN KU Organization [employer] Address Unknown Phone Unavailable Care Team Providers Care Flat Screen Worker Name Role Phone ZAN KU CP Unavailable Allergies No Known Allergies Problems [...] Start Date End Date Status Dosage Concerta [facility] [address]-[address] Steve to sign for Matthew TAKE ONE TABLET BY MOUTH ONCE DAILY IN THE MORNING Results No Known Results Summary Purpose eClinicalWorks Submission
--- OUTSIDE RECORDS SUMMARY | 2017-06-26 20:09 | XMS REPORT ---
Author Author [facility], [facility] e[employer] Address Unknown Phone Unavailable Care Team Providers Care Maintenance Mechanic Helper Name Role Phone [facility], [facility] CP Unavailable Allergies No Known Allergies Problems [...] Date PATIENT AND FAMILY SUPPORT CPT-4 S0280 Jan 11, 2015 Results No Known Results Summary Purpose eClinicalWorks Submission
--- OUTSIDE RECORDS SUMMARY | 2017-06-26 20:10 | XMS REPORT ---
Author Author [facility], [facility] e[employer] Address Unknown Phone Unavailable Care Team Providers Care Online Merchant Name Role Phone [facility], [facility] [...] System Code Date HEALTH PROMOTION CPT-4 S0280 Mar 25, 2015 Results No Known Results Summary Purpose eClinicalWorks Submission
--- OUTSIDE RECORDS SUMMARY | 2017-06-26 20:10 | XMS REPORT ---
Author Author ZAN KU [facility] e[employer] Address Unknown Phone Unavailable Care Team Providers Care Silo Man Name Role Phone ZAN KU Unavailable Allergies No Known Allergies Problems Problem Type Condition Code Onset Dates Condition Status Problem Chronic fatigue R53.82 Active Problem Pain in left knee M25.562 Active Problem Pain in right knee M25.561 Active Problem Bipolar disorder, unspecified F31.9 Active Problem Attention deficit hyperactivity disorder (ADHD), combined type F90.2 Active Problem Unspecified mood [affective] disorder F39 Active Problem General counseling and advice on female contraception Z30.09 Active Problem High risk medication use Z79.899 Active Problem Iron deficiency anemia due to chronic blood loss D50.0 Active Problem Routine gynecological examination Z01.419 Active Assessment Unspecified mood [affective] disorder F39 Active Problem Long-term use of high-risk medication Z79.899 Active Assessment Attention deficit hyperactivity disorder (ADHD), combined type F90.2 Active Problem Low hemoglobin D64.9 Active Assessment Bipolar disorder, unspecified F31.9 Active Problem Vitamin D deficiency E55.9 Active Medications Medication Code System Code Instructions Start Date End Date Status Dosage Lamictal [facility] [address]-18 150 MG Orally twice a day Dec 21, 2015 0.5 tablet Vitamin D [facility] [address]-13 2000 UNIT Orally Once a day 1 tablet Invega [facility] [address]-63 6 MG Orally Once a day Dec 21, 2015 1 tablet in the morning BusPIRone HCl [facility] [address]-76 5 mg Orally. must attend appt for further refills Three times a day Nov 14, 2015 1 tablet Procedures Procedure Coding System Code Date Office Visit, Est Pt., Level 3 CPT-4 49855 Dec 21, 2015 Vital Signs Date/Time: Dec 21, 2015 Cardiac Monitoring Heart Rate 84 bpm Weight 128.3 lbs Height 63.5 in Wt Percentile 54.95 % BMI 22.37 Index Blood Pressure Diastolic 66 mmHg Blood Pressure Systolic 98 mmHg BMIPercentile 60.31 % Results No Known Results Summary Purpose eClinicalWorks Submission
--- OUTSIDE RECORDS SUMMARY | 2017-06-26 20:10 | XMS REPORT ---
Author Author ZAN KU [facility] Address Unknown Care Team Providers Care Collet Making Machine Operator Name Role Phone ZAN KU Unavailable PROBLEMS Type Condition ICD9-CM Code [id number] Code Onset Dates Condition Status SNOMED Code Problem Iron deficiency anemia due to chronic blood loss D50.0 Active 71149070 Problem Bipolar disorder, unspecified F31.9 Active 38441340 Problem Unspecified mood [affective] disorder F39 Active 977794600 Problem Schizoaffective disorder F25.9 Active 43764420 Problem Seasonal allergic rhinitis due to pollen J30.1 Active 76880800 Problem Amenorrhea N91.2 Active 02145188 Problem Attention deficit hyperactivity disorder (ADHD), combined type F90.2 Active 788442473 Problem Bipolar disorder with depression F31.30 Active 43339041 Problem Generalized anxiety disorder F41.1 Active 61183938 Problem Low hemoglobin D64.9 Active 330401190 Problem Chronic fatigue R53.82 Active 35688842 Problem Long-term use of high-risk medication Z79.899 Active 153043382 Problem Vitamin D deficiency E55.9 Active 39476520 Problem Routine gynecological examination Z01.419 Active 406919568 Problem Pain in left knee M25.562 Active 86018175 Problem High risk medication use Z79.899 Active 736187373 Problem Pain in right knee M25.561 Active 23908636 Problem General counseling and advice on female contraception Z30.09 Active 38390098 ALLERGIES Unknown Allergies SOCIAL HISTORY No smoking Hx information available PLAN OF CARE VITAL SIGNS MEDICATIONS Unknown Medications RESULTS No Results PROCEDURES No Known procedures IMMUNIZATIONS No Known Immunizations
--- OUTSIDE RECORDS SUMMARY | 2017-06-26 20:10 | XMS REPORT ---
Author Author [facility], [facility] eClinicalWorks Address Unknown Phone Unavailable Care Team Providers Care Pressing Machine Tender Name Role Phone [facility], [facility] CP Unavailable Allergies No Known Allergies [...] PATIENT AND FAMILY SUPPORT CPT-4 S0280 Mar 31, 2015 Results No Known Results Summary Purpose eClinicalWorks Submission
--- OUTSIDE RECORDS SUMMARY | 2017-06-26 20:10 | XMS REPORT ---
Author Author ZAN KU Organization [employer] Address Unknown Phone Unavailable Care Team Providers Care Gas Scrubber Operator Name Role Phone ZAN KU CP Unavailable [...] Start Date End Date Status Dosage Concerta [facility] [address]-[address] Steve to sign for Matthew TAKE ONE TABLET BY MOUTH ONCE DAILY IN THE MORNING Results No Known Results Summary Purpose eClinicalWorks Submission
--- OUTSIDE RECORDS SUMMARY | 2017-06-26 20:10 | XMS REPORT ---
Author Author [facility], [facility] eClinicalWorks Address Unknown Phone Unavailable Care Team Providers Care Leadership Recruiter Name Role Phone [facility], [facility] CP Unavailable Allergies No Known Allergies Problems Problem Type Condition Code Onset Dates Condition Status Problem Generalized anxiety disorder 300.02 Active Problem Bipolar disorder, unspecified 296.80 Active Problem Schizoaffective disorder, unspecified 295.70 Active Problem Attention deficit disorder of childhood with hyperactivity 314.01 Active Assessment Major depressive disorder, recurrent, moderate F33.1 Active Problem Major depressive disorder, recurrent episode, moderate 296.32 Active Problem Leukorrhea, not specified as infective 623.5 Active Medications No Known Medications Procedures Procedure Coding System Code Date PATIENT AND FAMILY SUPPORT CPT-4 S0280 Feb 11, 2015 Results No Known Results Summary Purpose eClinicalWorks Submission
--- OUTSIDE RECORDS SUMMARY | 2017-06-26 20:10 | XMS REPORT ---
Author Author ZAN Flores [facility] Address Unknown Care Team Providers Care Willower Name Role Phone ZAN Flores Unavailable PROBLEMS Type Condition ICD9-CM Code QIF92-ST Code Onset Dates Condition Status SNOMED Code Problem Iron deficiency anemia due to chronic blood loss D50.0 Active 27499836 Problem Bipolar disorder, unspecified F31.9 Active 72909357 Problem Unspecified mood [affective] disorder F39 Active 571384587 Problem Schizoaffective disorder F25.9 Active 13880895 Problem Seasonal allergic rhinitis due to pollen J30.1 Active 01344751 Problem Amenorrhea N91.2 Active 85189738 Problem Attention deficit hyperactivity disorder (ADHD), combined type F90.2 Active 366394890 Problem Bipolar disorder with depression F31.30 Active 79327471 Problem Generalized anxiety disorder F41.1 Active 57005767 Problem Low hemoglobin D64.9 Active 246974881 Problem Chronic fatigue R53.82 Active 23170576 Problem Long-term use of high-risk medication Z79.899 Active 639713011 Problem Vitamin D deficiency E55.9 Active 75051436 Problem Routine gynecological examination Z01.419 Active 647154327 Problem Pain in left knee M25.562 Active 49356159 Problem High risk medication use Z79.899 Active 717629814 Problem Pain in right knee M25.561 Active 44395341 Problem General counseling and advice on female contraception Z30.09 Active 98448166 ALLERGIES No Information SOCIAL HISTORY Never Assessed [...] disorder of childhood with hyperactivity [facility] Hospital[facility] History Overdose [facility] 07/17/15
--- OUTSIDE RECORDS SUMMARY | 2017-06-26 20:10 | XMS REPORT ---
Author Author [facility], [facility] eClinicalWorks Address Unknown Phone Unavailable Care Team Providers Care Manufacturing Recruiter Name Role Phone [facility], [facility] CP Unavailable Allergies No Known Allergies [...] PATIENT AND FAMILY SUPPORT CPT-4 S0280 Feb 09, 2015 Results No Known Results Summary Purpose eClinicalWorks Submission
--- OUTSIDE RECORDS SUMMARY | 2017-06-26 20:10 | XMS REPORT ---
Author JANNET [facility]es [employer] Address Unknown Phone Unavailable Care Team Providers Care Choker Setter Name Role Phone JANNET DENT CP Unavailable Allergies, Adverse Reactions, Alerts Substance Reaction Event Type Vyvanse vomiting and diarrhea Drug Allergy Abilify twitching Drug Allergy Vyvanse 30 Mg Capsule diarrhea and vomiting Non Drug Allergy Problems Problem Type Condition Code Onset Dates Condition Status Assessment Encounter for immunization Z23 Active Assessment Smoker F17.200 Active Problem Generalized anxiety disorder 300.02 Active Problem Bipolar disorder, unspecified 296.80 Active Problem Schizoaffective disorder, unspecified 295.70 Active Problem Attention deficit disorder of childhood with hyperactivity 314.01 Active Assessment Viral upper respiratory tract infection J06.9 Active Problem Major depressive disorder, recurrent episode, moderate 296.32 Active Problem Leukorrhea, not specified as infective 623.5 Active Medications Medication Code System Code Instructions Start Date End Date Status Dosage Sudafed [facility] [address]-13 30 MG Orally every 6 hrs Dec 13, 2014 1 tablet as needed Tessalon Perles [facility] [address]-97 100 MG Orally Three times a day Dec 13, 2014 1 capsule as needed Lamictal [facility] [address]-97 150 MG Orally once a day Dec 10, 2014 1 tablet Concerta [facility] [address]-[address] Steve to sign for Matthew TAKE ONE TABLET BY MOUTH ONCE DAILY IN THE MORNING Sertraline HCl [facility] [address]-21 100 MG Orally Once a day Nov 10, 2014 1.5 tablets Procedures Procedure Coding System Code Date STREP A ASSAY W/OPTIC CPT-4 16078 Dec 13, 2014 FLUZONE QUAD (6 MO & UP)-MULTI DOSE VIAL-SANOFI PASTEUR-2014 CPT-4 43287 Dec 13, 2014 Office Visit, Est Pt., Level 3 CPT-4 23702 Dec 13, 2014 SINGLE IMMUNIZATION ADMIN CPT-4 96844 Dec 13, 2014 MENINGOCOCCAL (MENVEO) CPT-4 97423 Dec 13, 2014 IMMUNIZATION ADMIN, EACH ADD (please include units) CPT-4 14781 Dec 13, 2014 Vital Signs Date/Time: Dec 13, 2014 Temperature 99.2 F BMIPercentile 35.17 % Weight 114.0 lbs Height 63.2 in BMI 20.06 Index Blood Pressure Diastolic 68 mmHg Blood Pressure Systolic 102 mmHg Cardiac Monitoring Heart Rate 78 bpm Wt Percentile 30.33 % Ht Percentile 34.77 % Results No Known Results Immunizations Vaccine Administration Date FLUZONE QUAD (6 MO & UP)-MULTI DOSE VIAL-SANOFI PASTEUR-2014Dec 13, 2014 MENINGOCOCCAL (MENVEO) Dec 13, 2014 Summary Purpose eClinicalWorks Submission
--- OUTSIDE RECORDS SUMMARY | 2017-06-26 20:11 | XMS REPORT ---
Author Author ZAN KU Organization [employer]Works Address Unknown Phone Unavailable Care Team Providers Care Robotics Specialist Name Role Phone ZAN KU Unavailable [...]
--- OUTSIDE RECORDS SUMMARY | 2017-06-26 20:11 | XMS REPORT ---
Author Author GUI KAUFMAN [facility] eClinicalWorks Address Unknown Phone Unavailable Care Team Providers Care Vat Skimmer Name Role Phone GUI KAUFMAN Unavailable Allergies, Adverse Reactions, Alerts Substance Reaction Event Type Vyvanse vomiting and diarrhea Drug Allergy Abilify twitching Drug Allergy Vyvanse 30 Mg Capsule diarrhea and vomiting Non Drug Allergy Problems Problem Type Condition Code Onset Dates Condition Status Problem Leukorrhea, not specified as infective 623.5 Active Problem Bipolar disorder, unspecified 296.80 Active Problem Major depressive disorder, recurrent episode, moderate 296.32 Active Problem Low hemoglobin D64.9 Active Problem Long-term use of high-risk medication Z79.899 Active Problem Fatigue R53.83 Active Problem Schizoaffective disorder, unspecified 295.70 Active Problem Generalized anxiety disorder 300.02 Active Problem Sore throat J02.9 Active Problem Fever, low grade R50.9 Active Assessment Long-term use of high-risk medication Z79.899 Active Assessment Low hemoglobin D64.9 Active Assessment Fever, low grade R50.9 Active Assessment Fatigue R53.83 Active Assessment Sore throat J02.9 Active Problem Attention deficit disorder of childhood with hyperactivity 314.01 Active Medications Medication Code System Code Instructions Start Date End Date Status Dosage Trileptal [facility] [address]-51 150 MG Orally twice a day Jan 07, 2015 1 tablet Sertraline HCl [facility] [address]-43 100 MG Orally Once a day Nov 10, 2014 1.5 tablets Procedures Procedure Coding System Code Date INFLUENZA ASSAY W/OPTIC CPT-4 51308 June 22, 2015 Office Visit, Est Pt., Level 4 CPT-4 29862 June 22, 2015 STREP A ASSAY W/OPTIC CPT-4 34908 June 22, 2015 Vital Signs Date/Time: June 22, 2015 Temperature 98.7 F Weight 116.5 lbs Height 63.5 in BMI 20.31 Index Blood Pressure Diastolic 58 mmHg Blood Pressure Systolic 94 mmHg Cardiac Monitoring Heart Rate 70 bpm BMIPercentile 36.1 % Wt Percentile 33.08 % Results Name Result Date Reference Range Unit Abnormality Flag INFLUENZA A & B (IN HOUSE) ----Exp date 07/16/201720150622 ----INFLUENZA A negative [id number] ----INFLUENZA B negative [id number] ----Control + [id number] ----Lot # [id number] STREP A (IN HOUSE) ----Exp date 12/31/201620150622 ----Control + [id number] ----Lot # [id number] ----STREP A negative [id number] Summary Purpose eClinicalWorks Submission
--- OUTSIDE RECORDS SUMMARY | 2017-06-26 20:11 | XMS REPORT ---
Author Author ZAN KU [facility] Address Unknown Care Team Providers Care Hotel Office Manager Name Role Phone ZAN KU Unavailable PROBLEMS Type Condition ICD9-CM Code [id number] Code Onset Dates Condition Status SNOMED Code Problem Low hemoglobin D64.9 Active 173052168 Problem Chronic fatigue R53.82 Active 34260698 Problem Vitamin D deficiency E55.9 Active 27674699 Problem Long-term use of high-risk medication Z79.899 Active 095672665 Problem Iron deficiency anemia due to chronic blood loss D50.0 Active 28375942 Problem Routine gynecological examination Z01.419 Active 883161052 Problem Pain in left knee M25.562 Active 52473671 Problem Pain in right knee M25.561 Active 93419345 Problem General counseling and advice on female contraception Z30.09 Active 07343863 Problem High risk medication use Z79.899 Active 265439943 ALLERGIES Unknown Allergies SOCIAL HISTORY No smoking Hx information available PLAN OF CARE VITAL SIGNS MEDICATIONS Medication Instructions Dosage Frequency Start Date End Date Duration Status Lamictal 25 MG Orally Twice a day 2 tablets 12h Sep, 30 day(s) Active RESULTS No Results PROCEDURES No Known procedures IMMUNIZATIONS No Known Immunizations
--- OUTSIDE RECORDS SUMMARY | 2017-06-26 20:11 | XMS REPORT ---
Author Author [facility], [facility] eClinicalWorks Address Unknown Phone Unavailable Care Team Providers Care Production Line Name Role Phone [facility], [facility] CP Unavailable Allergies No Known Allergies [...] PATIENT AND FAMILY SUPPORT CPT-4 S0280 Jan 25, 2015 Results No Known Results Summary Purpose eClinicalWorks Submission
--- OUTSIDE RECORDS SUMMARY | 2017-06-26 20:11 | XMS REPORT ---
Author Author ZAN KU [facility] Address Unknown Care Team Providers Care Instructor Business Education Name Role Phone KINGSZAN Unavailable PROBLEMS Type Condition ICD9-CM Code VKX97-MG Code Onset Dates Condition Status SNOMED Code Problem Iron deficiency anemia due to chronic blood loss D50.0 Active 00880397 Problem Bipolar disorder, unspecified F31.9 Active 97729472 Problem Unspecified mood [affective] disorder F39 Active 182791520 Problem Schizoaffective disorder F25.9 Active 40946645 Problem Seasonal allergic rhinitis due to pollen J30.1 Active 16676456 Problem Amenorrhea N91.2 Active 37545327 Problem Attention deficit hyperactivity disorder (ADHD), combined type F90.2 Active 258884068 Problem Bipolar disorder with depression F31.30 Active 12162657 Problem Generalized anxiety disorder F41.1 Active 10021200 Problem Low hemoglobin D64.9 Active 771710952 Problem Chronic fatigue R53.82 Active 02689994 Problem Long-term use of high-risk medication Z79.899 Active 644376482 Problem Vitamin D deficiency E55.9 Active 91989001 Problem Routine gynecological examination Z01.419 Active 580921763 Problem Pain in left knee M25.562 Active 23255601 Problem High risk medication use Z79.899 Active 349831846 Problem Pain in right knee M25.561 Active 73633658 Problem General counseling and advice on female contraception Z30.09 Active 35364713 ALLERGIES Unknown Allergies SOCIAL HISTORY No smoking Hx information available PLAN OF CARE Activity Details Follow Up 6 Weeks Reason: VITAL SIGNS MEDICATIONS Medication Instructions Dosage Frequency Start Date End Date Duration Status BusPIRone HCl 5 mg Orally. must attend appt for further refills Three times a day 1 tablet 8h 12 Nov, 2015 Active Lamictal 150 MG Orally twice a day 0.5 tablet 12h 19 Dec, 2015 30 day(s ) Active LaMICtal XR 200 MG Orally Once a day 1 tablet 24h Mar, 30 day(s ) Active Strattera 60 MG Orally at bedtime Once a day 1 capsule 24h Mar, 30 days Active BusPIRone HCl 15 MG Orally Three times a day 1 tablet 8h Mar, 30 days Active RESULTS No Results PROCEDURES Procedure Date Ordered Related Diagnosis Body Site Office Visit, Est Pt., Level 3 Mar 12, 2016 IMMUNIZATIONS No Known Immunizations
--- OUTSIDE RECORDS SUMMARY | 2017-06-26 20:11 | XMS REPORT ---
Author Author ZAN KU Organization [employer]Clinical[employer] Address Unknown Phone Unavailable Care Team Providers Care Toy Designer Name Role Phone ZAN KU CP Unavailable [...] Start Date End Date Status Dosage Concerta [facility] [address]-[address] Steve to sign for Matthew TAKE ONE TABLET BY MOUTH ONCE DAILY IN THE MORNING Results No Known Results Summary Purpose eClinicalWorks Submission
--- OUTSIDE RECORDS SUMMARY | 2017-06-26 20:11 | XMS REPORT ---
Author Author GUI KAUFMAN [facility] eClinicalWorks Address Unknown Phone Unavailable Care Team Providers Care Rental Clerk Name Role Phone GUI KAUFMAN CP Unavailable Allergies No Known Allergies Problems Problem Type Condition Code Onset Dates Condition Status Problem Pain in right knee M25.561 Active Problem High risk medication use Z79.899 Active Problem Pain in left knee M25.562 Active Problem Unspecified mood [affective] disorder F39 Active Problem Bipolar disorder, unspecified F31.9 Active Problem Amenorrhea N91.2 Active Problem Routine gynecological examination Z01.419 Active Problem General counseling and advice on female contraception Z30.09 Active Problem Attention deficit hyperactivity disorder (ADHD), combined type F90.2 Active Problem Iron deficiency anemia due to chronic blood loss D50.0 Active Problem Long-term use of high-risk medication Z79.899 Active Problem Low hemoglobin D64.9 Active Problem Vitamin D deficiency E55.9 Active Assessment Encounter for test Z32.00 Active Problem Chronic fatigue R53.82 Active Medications No Known Medications Procedures Procedure Coding System Code Date URINE TEST CPT-4 93623 Jan 24, 2016 Results Name Result Date Reference Range Unit Abnormality Flag TEST, URINE (IN HOUSE) ----RESULTS Negative [id number] ----Lot # [id number] ----Control + 20160124 ----Exp date 20160124 Summary Purpose eClinicalWorks Submission
--- OUTSIDE RECORDS SUMMARY | 2017-06-26 20:11 | XMS REPORT ---
Author Author ZAN DUBOIS Organization [facility] Address [address] [place] [address] Care Team Providers Care Completions Manager Name Role Phone ZAN DUBOIS Unavailable PROBLEMS Type Condition ICD9-CM Code [id number] Code Onset Dates Condition Status SNOMED Code Problem Low hemoglobin D64.9 Active 169114479 Problem Chronic fatigue R53.82 Active 89495218 Problem Vitamin D deficiency E55.9 Active 51804409 Assessment Dysuria R30.0 06 Nov, 2015 Active 22313636 Problem Long-term use of high-risk medication Z79.899 Active 115270738 Problem Iron deficiency anemia due to chronic blood loss D50.0 Active 00351858 Problem Routine gynecological examination Z01.419 Active 758395865 Problem Pain in left knee M25.562 Active 76576957 Problem Pain in right knee M25.561 Active 11858414 Problem General counseling and advice on female contraception Z30.09 Active 86224880 Problem High risk medication use Z79.899 Active 230063415 ALLERGIES Substance Reaction Event Type Date Status Vyvanse vomiting and diarrhea Drug Allergy Nov, Active Abilify twitching Drug Allergy Nov, Active SOCIAL HISTORY No smoking Hx information available PLAN OF CARE VITAL SIGNS Height 63.5 in 2015-11-08 Weight 127.6 lbs 2015-11-08 Heart Rate 100 bpm 2015-11-08 Respiratory Rate 20 2015-11-08 BMI 22.25 kg/m2 2015-11-08 Blood pressure systolic 120 mmHg 2015-11-08 Blood pressure diastolic 72 mmHg 2015-11-08 MEDICATIONS Medication Instructions Dosage Frequency Start Date End Date Duration Status HydrOXYzine Pamoate 25 MG Orally twice a day 1 capsule as needed 12h July 30 day(s) Active Vitamin D 2000 UNIT Orally Once a day 1 tablet 24h Active Vitamin C 250 MG Orally twice a day 1 tablet 12h July, 30 day(s ) Active Invega 3 MG Orally Once a day 1 tablet in the morning 24h July, Active Ferrous Sulfate 325 (65 Fe) MG Orally twice a day 1 tablet 12h July, Active Bactrim 400-80 MG Orally twice daily 1 tablets Nov, Nov, 3 days Active Lamictal 25 MG Orally Twice a day 1 tablet bid x 7 days then 2 am and 1 pm x 1 week then 2 bid 12h Sep, 30 day(s) Active Paxil 20 mg Orally Once a day 1 tablet in the morning 24h July, 30 day(s) Active RESULTS Name Result Date Reference Range CULTURE, URINE 2015-11-08 Urine Culture, Routine Final report Result 1 UA LONG DIP (IN HOUSE) 2015-11-08 Lot # [id number] Exp date 2016-04 Clarity clear Color dark yellow Odor strong GLU negative CURTIS negatie KET negative SG >=1.030 BLO negative pH 6.0 Protein 1+ URO 0.2 NIT negative BRIELLE negative Lot # [id number] Exp date 01-18 PROCEDURES Procedure Date Ordered Related Diagnosis Body Site URINALYSIS, AUTO, W/O SCOPE Nov 08, 2015 LAB NOT BILLED BY [facility] Nov 08, 2015 Office Visit, Est Pt., Level 3 Nov 08, 2015 IMMUNIZATIONS No Known Immunizations
--- OUTSIDE RECORDS SUMMARY | 2017-06-26 20:11 | XMS REPORT ---
Author Author ZAN KU [facility] Address Unknown Care Team Providers Care Safe And Vault Mechanic Name Role Phone ZAN KU Unavailable PROBLEMS Type Condition ICD9-CM Code [id number]-FR Code Onset Dates Condition Status SNOMED Code Problem Pain in left knee M25.562 Active 19696590 Problem General counseling and advice on female contraception Z30.09 Active 83902800 Problem High risk medication use Z79.899 Active 808566745 Problem Amenorrhea N91.2 Active 32308113 Problem Unspecified mood [affective] disorder F39 Active 540336239 Problem Iron deficiency anemia due to chronic blood loss D50.0 Active 97851772 Problem Routine gynecological examination Z01.419 Active 822574909 Problem Bipolar disorder, unspecified F31.9 Active 14082623 Problem Attention deficit hyperactivity disorder (ADHD), combined type F90.2 Active 050993068 Problem Low hemoglobin D64.9 Active 227924898 Problem Vitamin D deficiency E55.9 Active 62042512 Problem Chronic fatigue R53.82 Active 79590607 Problem Long-term use of high-risk medication Z79.899 Active 767722441 Problem Pain in right knee M25.561 Active 30048233 ALLERGIES Unknown Allergies SOCIAL HISTORY No smoking [...]
--- OUTSIDE RECORDS SUMMARY | 2017-06-26 20:17 | XMS REPORT | Continuity of Care Document ---
Author Author [facility] Address Unknown Phone Unavailable Allergies Active Description Code Type Severity Reaction Onset Reported/Identified Relationship to Patient Clinical Status Yes No Known Drug Allergies [id number] Drug Allergy Mild N/A 01/03/2009 Yes Vyvanse 30 mg capsule Drug Allergy N/A N/A 04/15/2014 Yes aripiprazole [id number] Drug Allergy Mild N/A 07/17/2015 Yes VYVANCE VYVANCE Mild N/A 07/17/2015 Medications There is no data. Problems Date Dx Coded Attending Type Code Diagnosis Diagnosed By 10/08/2007 788.41 URINARY FREQUENCY 10/08/2007 788.41 URINARY FREQUENCY 10/08/2007 JANNET DENT MD 788.41 Urinary Frequency 10/08/2007 MAXINE CLEARY APRN 788.41 Urinary Frequency 10/08/2007 788.41 Urinary Frequency 10/08/2007 788.41 Urinary Frequency 10/08/2007 788.41 Urinary Frequency 10/08/2007 788.41 Urinary Frequency 10/08/2007 788.41 Urinary Frequency 10/08/2007 788.41 Urinary Frequency 10/08/2007 788.41 Urinary Frequency 10/08/2007 MAXINE CLEARY APRN 788.41 Urinary Frequency 10/08/2007 LORI MCKEON APRN 788.41 Urinary Frequency 10/08/2007 MAXINE CLEARY APRN 788.41 Urinary Frequency 10/08/2007 MARK QUINTANA DO 788.41 Urinary Frequency 10/08/2007 [facility]inary Frequency 10/08/2007 [facility] Urinary Frequency 10/08/2007 MAXINE CLEARY APRN 788.41 Urinary Frequency 10/08/2007 CHARLIE FRIAS APRN 788.41 Urinary Frequency 10/08/2007 [facility], GLEN A 788.41 Urinary Frequency 10/08/2007 788.41 Urinary Frequency 10/08/2007 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, LORI A 788.41 Urinary Frequency 10/08/2007 [facility], GLEN A 788.41 Urinary Frequency 10/08/2007 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, LORI A 788.41 Urinary Frequency 10/08/2007 MARIANO WOODY MARK K 788.41 Urinary Frequency 10/08/2007 [facility], [place] A 788.41 Urinary Frequency 10/08/2007 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, LORI A 788.41 Urinary Frequency 10/08/2007 [facility], [place] A 788.41 Urinary Frequency 10/08/2007 [facility], [place] A 788.41 Urinary Frequency 10/08/2007 JANNET DENT MD 788.41 Urinary Frequency 10/08/2007 EVIN CARTWRIGHT, MAXINE PEDERSON 788.41 Urinary Frequency 10/08/2007 JANNET DENT MD 788.41 Urinary Frequency 10/08/2007 [facility], [place] A 788.41 Urinary Frequency 10/08/2007 TRACIE RIVERA MD 788.41 Urinary Frequency 10/08/2007 [facility], [place] A 788.41 Urinary Frequency 10/08/2007 [facility], [place] A 788.41 Urinary Frequency 10/08/2007 HEVER BOUCHER APRN 788.41 Urinary Frequency 10/08/2007 EVIN CARTWRIGHT, MAXINE DACIA 788.41 Urinary Frequency 10/08/2007 TOSHIA HOUSTON RN 788.41 Urinary Frequency 10/08/2007 TOSHIA HOUSTON RN 788.41 Urinary Frequency 10/08/2007 TOSHIA HOUSTON RN 788.41 Urinary Frequency 10/08/2007 TOSHIA HOUSTON RN 788.41 Urinary Frequency 10/08/2007 TOSHIA HOUSTON RN 788.41 Urinary Frequency 10/08/2007 TOSHIA HOUSTON RN 788.41 Urinary Frequency 10/08/2007 TOSHIA HOUSTON RN 788.41 Urinary Frequency 10/08/2007 TOSHIA HOUSTON RN 788.41 Urinary Frequency 10/08/2007 TOSHIA HOUSTON RN 788.41 Urinary Frequency 10/08/2007 [facility], [place] R 788.41 Urinary Frequency 10/08/2007 KINGS BELT SPLICER, ZAN M 788.41 Urinary Frequency 10/08/2007 KINGS BELT SPLICER, ZAN M 788.41 Urinary Frequency 10/08/2007 CELSO NASH, TOSHIA Moore 788.41 Urinary Frequency 11/05/2007 784.7 EPISTAXIS 11/05/2007 784.7 EPISTAXIS 11/05/2007 JANNET DENT MD 784.7 Epistaxis 11/05/2007 CLEARY 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, MAXINE GUZMANH 784.7 Epistaxis 11/05/2007 784.7 Epistaxis 11/05/2007 784.7 Epistaxis 11/05/2007 784.7 Epistaxis 11/05/2007 784.7 Epistaxis 11/05/2007 784.7 Epistaxis 11/05/2007 784.7 Epistaxis 11/05/2007 784.7 Epistaxis 11/05/2007 CLEARY 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, MAXINE GUZMANH 784.7 Epistaxis 11/05/2007 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, LORI A 784.7 Epistaxis 11/05/2007 CLEARY 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, MAXINE GUZMANH 784.7 Epistaxis 11/05/2007 QUINTANA DO MARK K 784.7 Epistaxis 11/05/2007 [facility], [place] R 784.7 Epistaxis 11/05/2007 [facility], GLEN A 784.7 Epistaxis 11/05/2007 CLEARY 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, MAXINE GUZMANH 784.7 Epistaxis 11/05/2007 ABELINO FRIAS APRNYL A 784.7 Epistaxis 11/05/2007 [facility], [place] A 784.7 Epistaxis 11/05/2007 784.7 Epistaxis 11/05/2007 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, LORI A 784.7 Epistaxis 11/05/2007 [facility], [place] A 784.7 Epistaxis 11/05/2007 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, LORI A 784.7 Epistaxis 11/05/2007 QUINTANA DO, MARK K 784.7 Epistaxis 11/05/2007 [facility], [place] A 784.7 Epistaxis 11/05/2007 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, LORI A 784.7 Epistaxis 11/05/2007 [facility], GLEN A 784.7 Epistaxis 11/05/2007 [facility], [place] A 784.7 Epistaxis 11/05/2007 FILIPE LAGUNAS, JANNET 784.7 Epistaxis 11/05/2007 MAXINE CLEARY APRN 784.7 Epistaxis 11/05/2007 FILIPE LAGUNAS, JANNET 784.7 Epistaxis 11/05/2007 [facility], [place] A 784.7 Epistaxis 11/05/2007 TRACIE RIVERA MD 784.7 Epistaxis 11/05/2007 [facility], [place] A 784.7 Epistaxis 11/05/2007 [facility] [place] A 784.7 Epistaxis 11/05/2007 HEVER BOUCHER APRN 784.7 Epistaxis 11/05/2007 MAXINE CLEARY APRN 784.7 Epistaxis 11/05/2007 CELSO NASH, TOSHIA E 784.7 Epistaxis 11/05/2007 CELSO RN, TOSHIA E 784.7 Epistaxis 11/05/2007 CELSO RN, TOSHIA E 784.7 Epistaxis 11/05/2007 CELSO RN, TOSHIA E 784.7 Epistaxis 11/05/2007 CELSO RN, TOSHIA E 784.7 Epistaxis 11/05/2007 CELSO RN, TOSHIA E 784.7 Epistaxis 11/05/2007 CELSO RN, TOSHIA E 784.7 Epistaxis 11/05/2007 CELSO RN, TOSHIA E 784.7 Epistaxis 11/05/2007 CELSO RN, TOSHIA E 784.7 Epistaxis 11/05/2007 [facility], [place] R 784.7 Epistaxis 11/05/2007 ZAN AL M 784.7 Epistaxis 11/05/2007 KINGS HUGHES, ZAN M 784.7 Epistaxis 11/05/2007 CELSO RN, TOSHIA E 784.7 Epistaxis 06/01/2008 V20.2 Preventive Medicine New Patient Evaluation Childhood -06/01/2008 V20.2 Preventive Medicine New Patient Evaluation Childhood -06/01/2008 FILIPE LAGUNAS, JANNET V20.2 Preventive Medicine New Patient Evaluation Childhood -06/01/2008 MAXINE CLEARY APRN V20.2 Preventive Medicine New Patient Evaluation Childhood 07-1206/01/2008 V20.2 Preventive Medicine New Patient Evaluation Childhood 07-1206/01/2008 V20.2 Preventive Medicine New Patient Evaluation Childhood 07-1206/01/2008 V20.2 Preventive Medicine New Patient Evaluation Childhood 07-1206/01/2008 V20.2 Preventive Medicine New Patient Evaluation Childhood 07-1206/01/2008 V20.2 Preventive Medicine New Patient Evaluation Childhood 07-1206/01/2008 V20.2 Preventive Medicine New Patient Evaluation Childhood 07-1206/01/2008 V20.2 Preventive Medicine New Patient Evaluation Childhood 07-1206/01/2008 EVIN CARTWRIGHT MAXINE DACIA V20.2 Preventive Medicine New Patient Evaluation Childhood 07-1206/01/2008 LORI MCKEON APRN A V20.2 Preventive Medicine New Patient Evaluation Childhood 07-1206/01/2008 EVIN CARTWRIGHT MAXINE DACIA V20.2 Preventive Medicine New Patient Evaluation Childhood 07-1206/01/2008 MARK QUINTANA DO V20.2 Preventive Medicine New Patient Evaluation Childhood 07-1206/01/2008 [facility] [place] Jackson V20.2 Preventive Medicine New Patient Evaluation Childhood 07-1206/01/2008 [facility] New Patient Evaluation Childhood 07-1206/01/2008 MAXINE CLEARY APRN V20.2 Preventive Medicine New Patient Evaluation Childhood 07-1206/01/2008 CHARLIE FRIAS APRN V20.2 Preventive Medicine New Patient Evaluation Childhood 07-1206/01/2008 [facility] Preventive Medicine New Patient Evaluation Childhood 07-1206/01/2008 V20.2 Preventive Medicine New Patient Evaluation Childhood 07-1206/01/2008 LORI MCKEON APRN A V20.2 Preventive Medicine New Patient Evaluation Childhood 07-1206/01/2008 [facility] Preventive Medicine New Patient Evaluation Childhood 07-1206/01/2008 LORI MCKEON APRN A V20.2 Preventive Medicine New Patient Evaluation Childhood 07-1206/01/2008 MARK QUINTANA DO V20.2 Preventive Medicine New Patient Evaluation Childhood 07-1206/01/2008 [facility] Preventive Medicine New Patient Evaluation Childhood 07-1206/01/2008 LORI MCKEON APRN V20.2 Preventive Medicine New Patient Evaluation Childhood 07-1206/01/2008 [facility], [place] Junior V20.2 Preventive Medicine New Patient Evaluation Childhood 07-1206/01/2008 [facility], [place] Junior V20.2 Preventive Medicine New Patient Evaluation Childhood 07-1206/01/2008 JANNET DENT MD V20.2 Preventive Medicine New Patient Evaluation Childhood 07-1206/01/2008 MAXINE CLEARY APRN V20.2 Preventive Medicine New Patient Evaluation Childhood 07-1206/01/2008 JANNET DENT MD V20.2 Preventive Medicine New Patient Evaluation Childhood 07-1206/01/2008 [facility], [place] Junior V20.2 Preventive Medicine New Patient Evaluation Childhood 07-1206/01/2008 TRACIE RIVERA MD V20.2 Preventive Medicine New Patient Evaluation Childhood 07-1206/01/2008 [facility], [place] Junior V20.2 Preventive Medicine New Patient Evaluation Childhood 07-1206/01/2008 [facility], [place] Junior V20.2 Preventive Medicine New Patient Evaluation Childhood 07-1206/01/2008 HEVER BOUCHER APRN V20.2 Preventive Medicine New Patient Evaluation Childhood 07-1206/01/2008 MAXINE CLEARY APRN V20.2 Preventive Medicine New Patient Evaluation Childhood 07-1206/01/2008 TOSHIA HOUSTON RN V20.2 Preventive Medicine New Patient Evaluation Childhood 07-1206/01/2008 TOSHIA HOUSTON RN V20.2 Preventive Medicine New Patient Evaluation Childhood 07-1206/01/2008 TOSHIA HOUSTON RN V20.2 Preventive Medicine New Patient Evaluation Childhood 07-1206/01/2008 TOSHIA HOUSTON RN V20.2 Preventive Medicine New Patient Evaluation Childhood 07-1206/01/2008 TOSHIA HOUSTON RN V20.2 Preventive Medicine New Patient Evaluation Childhood 07-1206/01/2008 TOSHIA HOUSTON RN V20.2 Preventive Medicine New Patient Evaluation Childhood 07-1206/01/2008 TOSHIA HOUSTON RN V20.2 Preventive Medicine New Patient Evaluation Childhood 07-1206/01/2008 TOSHIA HOUSTON RN V20.2 Preventive Medicine New Patient Evaluation Childhood 07-1206/01/2008 TOSHIA HOUSTON RN V20.2 Preventive Medicine New Patient Evaluation Childhood -06/01/2008 [facility], [place] R V20.2 Preventive Medicine New Patient Evaluation Childhood -06/01/2008 ZAN AL V20.2 Preventive Medicine New Patient Evaluation Childhood -06/01/2008 ZAN AL V20.2 Preventive Medicine New Patient Evaluation Childhood -06/01/2008 TOSHIA HOUSTON RN V20.2 Preventive Medicine New Patient Evaluation Childhood 5-07/29/2008 V25.49 SURVEILLANCE OF OTHER CONTRACEPTIVE METHOD 07/29/2008 V25.49 SURVEILLANCE OF OTHER CONTRACEPTIVE METHOD 07/29/2008 JANNET DENT MD V25.49 Surveillance Of Other Contraceptive Method 07/29/2008 MAXINE CLEARY APRN V25.49 Surveillance Of Other Contraceptive Method 07/29/2008 V25.49 Surveillance Of Other Contraceptive Method 07/29/2008 V25.49 Surveillance Of Other Contraceptive Method 07/29/2008 V25.49 Surveillance Of Other Contraceptive Method 07/29/2008 V25.49 Surveillance Of Other Contraceptive Method 07/29/2008 V25.49 Surveillance Of Other Contraceptive Method 07/29/2008 V25.49 Surveillance Of Other Contraceptive Method 07/29/2008 V25.49 Surveillance Of Other Contraceptive Method 07/29/2008 MAXINE CLEARY APRN V25.49 Surveillance Of Other Contraceptive Method 07/29/2008 LORI MCKEON APRN V25.49 Surveillance Of Other Contraceptive Method 07/29/2008 MAXINE CLEARY APRN V25.49 Surveillance Of Other Contraceptive Method 07/29/2008 MARK QUINTANA DO V25.49 Surveillance Of Other Contraceptive Method 07/29/2008 [facility], [place] R V25.49 Surveillance Of Other Contraceptive Method 07/29/2008 [facility] Surveillance Of Other Contraceptive Method 07/29/2008 MAXINE CLEARY APRN V25.49 Surveillance Of Other Contraceptive Method 07/29/2008 CHARLIE FRIAS APRN V25.49 Surveillance Of Other Contraceptive Method 07/29/2008 [facility] Surveillance Of Other Contraceptive Method 07/29/2008 V25.49 Surveillance Of Other Contraceptive Method 07/29/2008 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WOLFLORI A V25.49 Surveillance Of Other Contraceptive Method 07/29/2008 [facility], [place] Junior V25.49 Surveillance Of Other Contraceptive Method 07/29/2008 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, LORI A V25.49 Surveillance Of Other Contraceptive Method 07/29/2008 QUINTANA MARK WOODY Jenna V25.49 Surveillance Of Other Contraceptive Method 07/29/2008 [facility], [place] Junior V25.49 Surveillance Of Other Contraceptive Method 07/29/2008 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WOLFLORI A V25.49 Surveillance Of Other Contraceptive Method 07/29/2008 [facility], [place] A V25.49 Surveillance Of Other Contraceptive Method 07/29/2008 [facility], [place] Junior V25.49 Surveillance Of Other Contraceptive Method 07/29/2008 JANNET DENT MD V25.49 Surveillance Of Other Contraceptive Method 07/29/2008 MAXINE CLEARY APRN V25.49 Surveillance Of Other Contraceptive Method 07/29/2008 JANNET DENT MD V25.49 Surveillance Of Other Contraceptive Method 07/29/2008 [facility], [place] Junior V25.49 Surveillance Of Other Contraceptive Method 07/29/2008 TRACIE RIVERA MD V25.49 Surveillance Of Other Contraceptive Method 07/29/2008 [facility], [place] Junior V25.49 Surveillance Of Other Contraceptive Method 07/29/2008 [facility], [place] Junior V25.49 Surveillance Of Other Contraceptive Method 07/29/2008 HEVER BOUCHER APRN V25.49 Surveillance Of Other Contraceptive Method 07/29/2008 MAXINE CLEARY APRN V25.49 Surveillance Of Other Contraceptive Method 07/29/2008 TOSHIA HOUSTON RN V25.49 Surveillance Of Other Contraceptive Method 07/29/2008 TOSHIA HOUSTON RN V25.49 Surveillance Of Other Contraceptive Method 07/29/2008 TOSHIA HOUSTON RN V25.49 Surveillance Of Other Contraceptive Method 07/29/2008 TOSHIA HOUSTON RN V25.49 Surveillance Of Other Contraceptive Method 07/29/2008 TOSHIA HOUSTON RN V25.49 Surveillance Of Other Contraceptive Method 07/29/2008 TOSHIA HOUSTON RN V25.49 Surveillance Of Other Contraceptive Method 07/29/2008 TOSHIA HOUSTON RN V25.49 Surveillance Of Other Contraceptive Method 07/29/2008 TOSHIA HOUSTON RN V25.49 Surveillance Of Other Contraceptive Method 07/29/2008 TOSHIA HOUSTON RN V25.49 Surveillance Of Other Contraceptive Method 07/29/2008 [facility] [place] Jackson V25.49 Surveillance Of Other Contraceptive Method 07/29/2008 ZAN AL V25.49 Surveillance Of Other Contraceptive Method 07/29/2008 ZAN AL V25.49 Surveillance Of Other Contraceptive Method 07/29/2008 TOSHIA HOUSTON RN V25.49 Surveillance Of Other Contraceptive Method 12/10/2008 V05.3 HEPATITIS VIRAL/ALL 12/10/2008 V05.8 GARDASIL 12/10/2008 V05.3 HEPATITIS VIRAL/ALL 12/10/2008 V05.8 GARDASIL 12/10/2008 JANNET DENT MD V05.3 Hepatitis Viral/all 12/10/2008 JANNET DENT MD V05.8 Gardasil 12/10/2008 EVIN CARTWRIGHT MAXINE DACIA V05.3 Hepatitis Viral/all 12/10/2008 MAXINE CLEARY APRN V05.8 Gardasil 12/10/2008 V05.3 Hepatitis Viral/all 12/10/2008 V05.8 Gardasil 12/10/2008 V05.3 Hepatitis Viral/all 12/10/2008 V05.8 Gardasil 12/10/2008 V05.3 Hepatitis Viral/all 12/10/2008 V05.8 Gardasil 12/10/2008 V05.3 Hepatitis Viral/all 12/10/2008 V05.8 Gardasil 12/10/2008 V05.3 Hepatitis Viral/all 12/10/2008 V05.8 Gardasil 12/10/2008 V05.3 Hepatitis Viral/all 12/10/2008 V05.8 Gardasil 12/10/2008 V05.3 Hepatitis Viral/all 12/10/2008 V05.8 Gardasil 12/10/2008 EVIN CARTWRIGHT MAXINE DACIA V05.3 Hepatitis Viral/all 12/10/2008 EVIN CARTWRIGHT MAXINE GUZMANH V05.8 Gardasil 12/10/2008 LORI MCKEON APRN V05.3 Hepatitis Viral/all 12/10/2008 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, LORI A V05.8 Gardasil 12/10/2008 CLEARY 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, MAXINE PEDERSON V05.3 Hepatitis Viral/all 12/10/2008 CLEARY 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, MAXINE PEDERSON V05.8 Gardasil 12/10/2008 QUINTANA DO, MARK K V05.3 Hepatitis Viral/all 12/10/2008 QUINTANA DO, MARK K V05.8 Gardasil 12/10/2008 [facility] [place] R V05.3 Hepatitis Viral/all 12/10/2008 [facility] [place] R V05.8 Gardasil 12/10/2008 [facility], GL[place] A V05.3 Hepatitis Viral/all 12/10/2008 [facility], [place] A V05.8 Gardasil 12/10/2008 CLEARY 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, MAXINE PEDERSON V05.3 Hepatitis Viral/all 12/10/2008 CLEARY 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, MAXINE PEDERSON V05.8 Gardasil 12/10/2008 RAJOTTE 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, CHARLIE A V05.3 Hepatitis Viral/all 12/10/2008 RAJOTTE 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, CHARLIE A V05.8 Gardasil 12/10/2008 [facility], [place] A V05.3 Hepatitis Viral/all 12/10/2008 [facility], [place] A V05.8 Gardasil 12/10/2008 V05.3 Hepatitis Viral/all 12/10/2008 V05.8 Gardasil 12/10/2008 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, LORI A V05.3 Hepatitis Viral/all 12/10/2008 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, LORI A V05.8 Gardasil 12/10/2008 [facility], [place] A V05.3 Hepatitis Viral/all 12/10/2008 [facility], [place] A V05.8 Gardasil 12/10/2008 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, LORI A V05.3 Hepatitis Viral/all 12/10/2008 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, LORI A V05.8 Gardasil 12/10/2008 QUINTANA DO, MARK K V05.3 Hepatitis Viral/all 12/10/2008 QUINTANA DO, MARK K V05.8 Gardasil 12/10/2008 [facility], [place] A V05.3 Hepatitis Viral/all 12/10/2008 [facility] [place] A V05.8 Gardasil 12/10/2008 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, LORI A V05.3 Hepatitis Viral/all 12/10/2008 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, LORI A V05.8 Gardasil 12/10/2008 [facility], [place] A V05.3 Hepatitis Viral/all 12/10/2008 [facility], [place] A V05.8 Gardasil 12/10/2008 [facility], [place] A V05.3 Hepatitis Viral/all 12/10/2008 [facility] [place] A V05.8 Gardasil 12/10/2008 FILIPE LAGUNAS, JANNET V05.3 Hepatitis Viral/all 12/10/2008 FILIPE LAGUNAS, JANNET V05.8 Gardasil 12/10/2008 CLEARY 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, MAXINE DACIA V05.3 Hepatitis Viral/all 12/10/2008 CLEARY 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, MAXINE DACIA V05.8 Gardasil 12/10/2008 FILIPE LAGUNAS, JANNET V05.3 Hepatitis Viral/all 12/10/2008 FILIPE LAGUNAS, JANNET V05.8 Gardasil 12/10/2008 [facility], [place] A V05.3 Hepatitis Viral/all 12/10/2008 [facility] [place] A V05.8 Gardasil 12/10/2008 MIGUEL LAGUNAS, TRACIE V05.3 Hepatitis Viral/all 12/10/2008 MIGUEL LAGUNAS, TRACIE V05.8 Gardasil 12/10/2008 [facility], [place] A V05.3 Hepatitis Viral/all 12/10/2008 [facility], [place] A V05.8 Gardasil 12/10/2008 [facility] [place] A V05.3 Hepatitis Viral/all 12/10/2008 [facility] [place] A V05.8 Gardasil 12/10/2008 CITLALY 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, HEVER V05.3 Hepatitis Viral/all 12/10/2008 CITLALY 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, HEVER V05.8 Gardasil 12/10/2008 CLEARY 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, MAXINE DACIA V05.3 Hepatitis Viral/all 12/10/2008 CLEARY 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, MAXINE DACIA V05.8 Gardasil 12/10/2008 CELSO RN, TOSHIA E V05.3 Hepatitis Viral/all 12/10/2008 CELSO RN, TOSHIA E V05.8 Gardasil 12/10/2008 CELSO RN, TOSHIA E V05.3 Hepatitis Viral/all 12/10/2008 CELSO RN, TOSHIA E V05.8 Gardasil 12/10/2008 CELSO RN, TOSHIA E V05.3 Hepatitis Viral/all 12/10/2008 HOUSTON RN, TOSHIA E V05.8 Gardasil 12/10/2008 HOUSTON RN, TOSHIA E V05.3 Hepatitis Viral/all 12/10/2008 CELSO RN, TOSHIA E V05.8 Gardasil 12/10/2008 CELSO RN, TOSHIA E V05.3 Hepatitis Viral/all 12/10/2008 CELSO RN, TOSHIA E V05.8 Gardasil 12/10/2008 CELSO RN, TOSHIA E V05.3 Hepatitis Viral/all 12/10/2008 CELSO RN, TOSHIA E V05.8 Gardasil 12/10/2008 CELSO RN, TOSHIA E V05.3 Hepatitis Viral/all 12/10/2008 CELSO RN, TOSHIA E V05.8 Gardasil 12/10/2008 CELSO RN, TOSHIA E V05.3 Hepatitis Viral/all 12/10/2008 CELSO RN, TOSHIA E V05.8 Gardasil 12/10/2008 CELSO RN, TOSHIA E V05.3 Hepatitis Viral/all 12/10/2008 CELSO RN, TOSHIA E V05.8 Gardasil 12/10/2008 [facility], [place] R V05.3 Hepatitis Viral/all 12/10/2008 [facility], [place] R V05.8 Gardasil 12/10/2008 KINGS BELT SPLICER, ZAN M V05.3 Hepatitis Viral/all 12/10/2008 KINGS BELT SPLICER, ZAN M V05.8 Gardasil 12/10/2008 KINGS BELT SPLICER, ZAN M V05.3 Hepatitis Viral/all 12/10/2008 KINGS BELT SPLICER, ZAN M V05.8 Gardasil 12/10/2008 CELSO RN, TOSHIA E V05.3 Hepatitis Viral/all 12/10/2008 CELSO RN, TOSHIA E V05.8 Gardasil 12/27/2008 564.00 CONSTIPATION CHRONIC 12/27/2008 783.21 ABNORMAL WEIGHT LOSS 12/27/2008 787.02 nausea 12/27/2008 564.00 CONSTIPATION CHRONIC 12/27/2008 783.21 ABNORMAL WEIGHT LOSS 12/27/2008 787.02 nausea 12/27/2008 JANNET DENT MD 564.00 CONSTIPATION CHRONIC 12/27/2008 FILIPE LAGUNAS, JANNET 783.21 Abnormal Weight Loss 12/27/2008 FILIPE LAGUNAS, JANNET 787.02 Nausea 12/27/2008 EVIN CARTWRIGHT MAXINE DACIA 564.00 CONSTIPATION CHRONIC 12/27/2008 EVIN CARTWRIGHT MAXINE DACIA 783.21 Abnormal Weight Loss 12/27/2008 MAXINE CLEARY APRN 787.02 Nausea 12/27/2008 564.00 CONSTIPATION CHRONIC 12/27/2008 783.21 Abnormal Weight Loss 12/27/2008 787.02 Nausea 12/27/2008 564.00 CONSTIPATION CHRONIC 12/27/2008 783.21 Abnormal Weight Loss 12/27/2008 787.02 Nausea 12/27/2008 564.00 CONSTIPATION CHRONIC 12/27/2008 783.21 Abnormal Weight Loss 12/27/2008 787.02 Nausea 12/27/2008 564.00 CONSTIPATION CHRONIC 12/27/2008 783.21 Abnormal Weight Loss 12/27/2008 787.02 Nausea 12/27/2008 564.00 CONSTIPATION CHRONIC 12/27/2008 783.21 Abnormal Weight Loss 12/27/2008 787.02 Nausea 12/27/2008 564.00 CONSTIPATION CHRONIC 12/27/2008 783.21 Abnormal Weight Loss 12/27/2008 787.02 Nausea 12/27/2008 564.00 CONSTIPATION CHRONIC 12/27/2008 783.21 Abnormal Weight Loss 12/27/2008 787.02 Nausea 12/27/2008 MAXINE CLEARY APRN 564.00 CONSTIPATION CHRONIC 12/27/2008 MAXINE CLEARY APRN 783.21 Abnormal Weight Loss 12/27/2008 MAXINE CLEARY APRN 787.02 Nausea 12/27/2008 LORI MCKEON APRN A 564.00 CONSTIPATION CHRONIC 12/27/2008 LORI MCKEON APRN A 783.21 Abnormal Weight Loss 12/27/2008 WOLF MCKEON APRNIDI A 787.02 Nausea 12/27/2008 MXAINE CLEARY APRN 564.00 CONSTIPATION CHRONIC 12/27/2008 MAXINE CLEARY APRN 783.21 Abnormal Weight Loss 12/27/2008 MAXINE CLEARY APRN 787.02 Nausea 12/27/2008 QUINTANA DONATALIA K 564.00 CONSTIPATION CHRONIC 12/27/2008 [place] DO, MARK K 783.21 Abnormal Weight Loss 12/27/2008 [place] DO, MARK K 787.02 Nausea 12/27/2008 [facility], GWENDOLYN R 564.00 CONSTIPATION CHRONIC 12/27/2008 [facility], GWENDOLYN R 783.21 Abnormal Weight Loss 12/27/2008 [facility], GWENDOLYN R 787.02 Nausea 12/27/2008 [facility], GLEN A 564.00 CONSTIPATION CHRONIC 12/27/2008 [facility], GLEN A 783.21 Abnormal Weight Loss 12/27/2008 [facility], GLEN A 787.02 Nausea 12/27/2008 MAXINE CLEARY APRN 564.00 CONSTIPATION CHRONIC 12/27/2008 MAXINE CLEARY APRN 783.21 Abnormal Weight Loss 12/27/2008 MAXINE CLEARY APRN 787.02 Nausea 12/27/2008 RAJJD CHAY CHARLIE A 564.00 CONSTIPATION CHRONIC 12/27/2008 RAJOTTE CHAY, CHARLIE A 783.21 Abnormal Weight Loss 12/27/2008 RAJMATTHEWE CHAY CHARLIE A 787.02 Nausea 12/27/2008 [facility], GLEN A 564.00 CONSTIPATION CHRONIC 12/27/2008 [facility] [facility] A 783.21 Abnormal Weight Loss 12/27/2008 [facility], GLEN A 787.02 Nausea 12/27/2008 564.00 CONSTIPATION CHRONIC 12/27/2008 783.21 Abnormal Weight Loss 12/27/2008 787.02 Nausea 12/27/2008 LINDAIsrael CARTWRIGHT LORI A 564.00 CONSTIPATION CHRONIC 12/27/2008 LINDAFAUSTO CARTWRIGHT LORI A 783.21 Abnormal Weight Loss 12/27/2008 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, LORI A 787.02 Nausea 12/27/2008 [facility], [facility] A 564.00 CONSTIPATION CHRONIC 12/27/2008 [facility], [facility] A 783.21 Abnormal Weight Loss 12/27/2008 [facility], [facility]EN A 787.02 Nausea 12/27/2008 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, 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 A 564.00 CONSTIPATION CHRONIC 12/27/2008 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, LORI A 783.21 Abnormal Weight Loss 12/27/2008 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, LORI A 787.02 Nausea 12/27/2008 QUINTANA DO, MARK K 564.00 CONSTIPATION CHRONIC 12/27/2008 QUINTANA DO, MARK K 783.21 Abnormal Weight Loss 12/27/2008 QUINTANA DO, MARK K 787.02 Nausea 12/27/2008 [facility], [facility]EN A 564.00 CONSTIPATION CHRONIC 12/27/2008 [facility] 783.21 Abnormal Weight Loss 12/27/2008 [facility], [facility] A 787.02 Nausea 12/27/2008 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, 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 A 564.00 CONSTIPATION CHRONIC 12/27/2008 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, LORI A 783.21 Abnormal Weight Loss 12/27/2008 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, LORI A 787.02 Nausea 12/27/2008 [facility], GLEN A 564.00 CONSTIPATION CHRONIC 12/27/2008 [facility] A 783.21 Abnormal Weight Loss 12/27/2008 [facility] A 787.02 Nausea 12/27/2008 [facility], GLEN A 564.00 CONSTIPATION CHRONIC 12/27/2008 [facility] A 783.21 Abnormal Weight Loss 12/27/2008 [facility] A 787.02 Nausea 12/27/2008 JANNET DENT MD 564.00 CONSTIPATION CHRONIC 12/27/2008 JANNET DENT MD 783.21 Abnormal Weight Loss 12/27/2008 JANNET DENT MD 787.02 Nausea 12/27/2008 MAXINE CLEARY APRN 564.00 CONSTIPATION CHRONIC 12/27/2008 MAXINE CLEARY APRN 783.21 Abnormal Weight Loss 12/27/2008 MAXINE CLEARY APRN 787.02 Nausea 12/27/2008 FILIPE LAGUNAS, JANNET 564.00 CONSTIPATION CHRONIC 12/27/2008 FILIPE LAGUNAS, JANNET 783.21 Abnormal Weight Loss 12/27/2008 FILIPE LAGUNAS, JANNET 787.02 Nausea 12/27/2008 [facility] A 564.00 CONSTIPATION CHRONIC 12/27/2008 [facility] A 783.21 Abnormal Weight Loss 12/27/2008 [facility] A 787.02 Nausea 12/27/2008 TRACIE RIVERA MD 564.00 CONSTIPATION CHRONIC 12/27/2008 TRACIE RIVERA MD 783.21 Abnormal Weight Loss 12/27/2008 TRACIE RIVERA MD 787.02 Nausea 12/27/2008 [facility] A 564.00 CONSTIPATION CHRONIC 12/27/2008 [facility] A 783.21 Abnormal Weight Loss 12/27/2008 [facility] A 787.02 Nausea 12/27/2008 [facility] A 564.00 CONSTIPATION CHRONIC 12/27/2008 [facility], [facility] A 783.21 Abnormal Weight Loss 12/27/2008 [facility], [facility] A 787.02 Nausea 12/27/2008 HEVER BOUCHER APRN 564.00 CONSTIPATION CHRONIC 12/27/2008 HEVER BOUCHER APRN 783.21 Abnormal Weight Loss 12/27/2008 CITLALY CHAY HEVER 787.02 Nausea 12/27/2008 EVIN CARTWRIGHT MAXINE DACIA 564.00 CONSTIPATION CHRONIC 12/27/2008 EVIN CARTWRIGHT MAXINE GUZMANH 783.21 Abnormal Weight Loss 12/27/2008 EVIN CARTWRIGHT MAXINE GUZMANH 787.02 Nausea 12/27/2008 TOSHIA HOUSTON RN 564.00 CONSTIPATION CHRONIC 12/27/2008 TOSHIA HOUSTON RN 783.21 Abnormal Weight Loss 12/27/2008 TOSHIA HOUSTON RN E 787.02 Nausea 12/27/2008 TOSHIA HOUSTON RN E 564.00 CONSTIPATION CHRONIC 12/27/2008 TOSHIA HOUSTON RN E 783.21 Abnormal Weight Loss 12/27/2008 TOSHIA HOUSTON RN 787.02 Nausea 12/27/2008 TOSHIA HOUSTON RN E 564.00 CONSTIPATION CHRONIC 12/27/2008 TOSHIA HOUSTON RN E 783.21 Abnormal Weight Loss 12/27/2008 CELSO NASH, TOSHIA E 787.02 Nausea 12/27/2008 CELSO NASH, TOSHIA E 564.00 CONSTIPATION CHRONIC 12/27/2008 CELSO NASH, TOSHIA E 783.21 Abnormal Weight Loss 12/27/2008 TOSHIA HOUSTON RN E 787.02 Nausea 12/27/2008 TOSHIA HOUSTON RN E 564.00 CONSTIPATION CHRONIC 12/27/2008 TOSHIA HOUSTON RN E 783.21 Abnormal Weight Loss 12/27/2008 CELSO NASH, TOSHIA E 787.02 Nausea 12/27/2008 CELSO NASH, TOSHIA E 564.00 CONSTIPATION CHRONIC 12/27/2008 TOSHIA HOUSTON RN E 783.21 Abnormal Weight Loss 12/27/2008 CELSO NASH, TOSHIA E 787.02 Nausea 12/27/2008 PRESTON HOUSTON RNISTA E 564.00 CONSTIPATION CHRONIC 12/27/2008 TOSHIA HOUSTON RN E 783.21 Abnormal Weight Loss 12/27/2008 CELSO NASH, TOSHIA E 787.02 Nausea 12/27/2008 CELSO NASH, TOSHIA E 564.00 CONSTIPATION CHRONIC 12/27/2008 CELSO NASH, TOSHIA E 783.21 Abnormal Weight Loss 12/27/2008 CELSO NASH, TOSHIA E 787.02 Nausea 12/27/2008 TOSHIA HOUSTON RN E 564.00 CONSTIPATION CHRONIC 12/27/2008 CELSO NASH, TOSHIA E 783.21 Abnormal Weight Loss 12/27/2008 CELSO NASH, TOSHIA E 787.02 Nausea 12/27/2008 [facility], GWENDOLYN R 564.00 CONSTIPATION CHRONIC 12/27/2008 [facility], GWENDOLYN R 783.21 Abnormal Weight Loss 12/27/2008 [facility], GWENDOLYN R 787.02 Nausea 12/27/2008 ZAN AL M 564.00 CONSTIPATION CHRONIC 12/27/2008 ZAN AL M 783.21 Abnormal Weight Loss 12/27/2008 ZAN [facility] M 787.02 Nausea 12/27/2008 ZAN AL M 564.00 CONSTIPATION CHRONIC 12/27/2008 ZAN AL M 783.21 Abnormal Weight Loss 12/27/2008 ZAN AL M 787.02 Nausea 12/27/2008 CELSO RN, TOSHIA E 564.00 CONSTIPATION CHRONIC 12/27/2008 CELSO RN, TOSHIA E 783.21 Abnormal Weight Loss 12/27/2008 CELSO RN, TOSHIA E 787.02 Nausea 06/14/2009 477.9 ALLERGIC RHINITIS 06/14/2009 477.9 ALLERGIC RHINITIS 06/14/2009 JANNET DENT MD 477.9 ALLERGIC RHINITIS 06/14/2009 EVIN CARTWRIGHT MAXINE GUZMANH 477.9 ALLERGIC RHINITIS 06/14/2009 477.9 ALLERGIC RHINITIS 06/14/2009 477.9 ALLERGIC RHINITIS 06/14/2009 477.9 ALLERGIC RHINITIS 06/14/2009 477.9 ALLERGIC RHINITIS 06/14/2009 477.9 ALLERGIC RHINITIS 06/14/2009 477.9 ALLERGIC RHINITIS 06/14/2009 477.9 ALLERGIC RHINITIS 06/14/2009 EVIN CARTWRIGHT, MAXINE GUZMANH 477.9 ALLERGIC RHINITIS 06/14/2009 LINDA APRN, LORI A 477.9 ALLERGIC RHINITIS 06/14/2009 EVIN CARTWRIGHT MAXINE GUZMANH 477.9 ALLERGIC RHINITIS 06/14/2009 MARK QUINATNA DO K 477.9 ALLERGIC RHINITIS 06/14/2009 [facility], GWENDOLYN Jackson 477.9 ALLERGIC RHINITIS 06/14/2009 [facility], GLEN A 477.9 ALLERGIC RHINITIS 06/14/2009 EVIN CARTWRIGHT MAXINE GUZMANH 477.9 ALLERGIC RHINITIS 06/14/2009 CHARLIE FRIAS APRN A 477.9 ALLERGIC RHINITIS 06/14/2009 [facility], [facility]EN A 477.9 ALLERGIC RHINITIS 06/14/2009 477.9 ALLERGIC RHINITIS 06/14/2009 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, LORI A 477.9 ALLERGIC RHINITIS 06/14/2009 [facility], GLEN A 477.9 ALLERGIC RHINITIS 06/14/2009 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, LORI A 477.9 ALLERGIC RHINITIS 06/14/2009 QUINTANA DONATALIA K 477.9 ALLERGIC RHINITIS 06/14/2009 [facility], GLEN A 477.9 ALLERGIC RHINITIS 06/14/2009 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, LORI A 477.9 ALLERGIC RHINITIS 06/14/2009 [facility], GLEN A 477.9 ALLERGIC RHINITIS 06/14/2009 [facility], [place] A 477.9 ALLERGIC RHINITIS 06/14/2009 FILIPE LAGUNAS, JANNET 477.9 ALLERGIC RHINITIS 06/14/2009 EVIN CARTWRIGHT, MAXINE PEDERSON 477.9 ALLERGIC RHINITIS 06/14/2009 FILIPE LAGUNAS, JANNET 477.9 ALLERGIC RHINITIS 06/14/2009 [facility], [place]EN A 477.9 ALLERGIC RHINITIS 06/14/2009 MIGUEL LAGUNAS, TRACIE 477.9 ALLERGIC RHINITIS 06/14/2009 [facility], [place]EN A 477.9 ALLERGIC RHINITIS 06/14/2009 [facility], [place]EN A 477.9 ALLERGIC RHINITIS 06/14/2009 CITLALY CARTWRIGHT, HEVER 477.9 ALLERGIC RHINITIS 06/14/2009 EVIN CARTWRIGHT, MAXINE PEDERSON 477.9 ALLERGIC RHINITIS 06/14/2009 CELSO RN, TOSHIA E 477.9 ALLERGIC RHINITIS 06/14/2009 CELSO RN, TOSHIA E 477.9 ALLERGIC RHINITIS 06/14/2009 CELSO RN, TOSHIA E 477.9 ALLERGIC RHINITIS 06/14/2009 HOUSTON RN, TOSHIA E 477.9 ALLERGIC RHINITIS 06/14/2009 HOUSTON RN, TOHSIA E 477.9 ALLERGIC RHINITIS 06/14/2009 HOUSTON RN, TOSHIA E 477.9 ALLERGIC RHINITIS 06/14/2009 CELSO RN, TOSHIA E 477.9 ALLERGIC RHINITIS 06/14/2009 HOUSTON RN, TOSHIA E 477.9 ALLERGIC RHINITIS 06/14/2009 HOUSTON RN, TOSHIA E 477.9 ALLERGIC RHINITIS 06/14/2009 [facility], GWENDOLYN Jackson 477.9 ALLERGIC RHINITIS 06/14/2009 ZAN AL M 477.9 ALLERGIC RHINITIS 06/14/2009 ZAN AL M 477.9 ALLERGIC RHINITIS 06/14/2009 CELSO RN, TOSHIA E 477.9 ALLERGIC RHINITIS 10/27/2009 919.4 SUPERFICIAL INJURY OF OTHER, MULTIPLE, AND UNSPECIFIED SITES, INSECT BITE, NONVENOMOUS, WITHOUT MENTION OF INFECTION 10/27/2009 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 10/27/2009 919.4 SUPERFICIAL INJURY OF OTHER, MULTIPLE, AND UNSPECIFIED SITES, INSECT BITE, NONVENOMOUS, WITHOUT MENTION OF INFECTION 10/27/2009 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 10/27/2009 JANNET DENT MD 919.4 Superficial Injury Of Other, Multiple, And Unspecified Sites, Insect Bite, Nonvenomous, Without Mention Of Infection 10/27/2009 FILIPE LAGUNAS, JANNET 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 10/27/2009 EVIN CARTWRIGHT MAXINE DACIA 919.4 Superficial Injury Of Other, Multiple, And Unspecified Sites, Insect Bite, Nonvenomous, Without Mention Of Infection 10/27/2009 MAXINE CLEARY APRN 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 10/27/2009 919.4 Superficial Injury Of Other, Multiple, And Unspecified Sites, Insect Bite, Nonvenomous, Without Mention Of Infection 10/27/2009 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 10/27/2009 919.4 Superficial Injury Of Other, Multiple, And Unspecified Sites, Insect Bite, Nonvenomous, Without Mention Of Infection 10/27/2009 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 10/27/2009 919.4 Superficial Injury Of Other, Multiple, And Unspecified Sites, Insect Bite, Nonvenomous, Without Mention Of Infection 10/27/2009 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 10/27/2009 919.4 Superficial Injury Of Other, Multiple, And Unspecified Sites, Insect Bite, Nonvenomous, Without Mention Of Infection 10/27/2009 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 10/27/2009 919.4 Superficial Injury Of Other, Multiple, And Unspecified Sites, Insect Bite, Nonvenomous, Without Mention Of Infection 10/27/2009 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 10/27/2009 919.4 Superficial Injury Of Other, Multiple, And Unspecified Sites, Insect Bite, Nonvenomous, Without Mention Of Infection 10/27/2009 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 10/27/2009 919.4 Superficial Injury Of Other, Multiple, And Unspecified Sites, Insect Bite, Nonvenomous, Without Mention Of Infection 10/27/2009 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 10/27/2009 MAXINE CLEARY APRN 919.4 Superficial Injury Of Other, Multiple, And Unspecified Sites, Insect Bite, Nonvenomous, Without Mention Of Infection 10/27/2009 CLEARYJOSE CARTWRIGHT MAXINE DACIA 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 10/27/2009 LINDALORI LAMBERT APRN A 919.4 Superficial Injury Of Other, Multiple, And Unspecified Sites, Insect Bite , Nonvenomous, Without Mention Of Infection 10/27/2009 LINDALORI Wood APRN A 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 10/27/2009 [facility], GLEN A 919.4 Superficial Injury Of Other, Multiple, And Unspecified Sites, Insect Bite , Nonvenomous, Without Mention Of Infection 10/27/2009 [facility], GLEN A 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 10/27/2009 [facility], GLEN A 919.4 Superficial Injury Of Other, Multiple, And Unspecified Sites, Insect Bite , Nonvenomous, Without Mention Of Infection 10/27/2009 [facility], GLEN A 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 10/27/2009 JANNET DENT MD 919.4 Superficial Injury Of Other, Multiple, And Unspecified Sites, Insect Bite, Nonvenomous, Without Mention Of Infection 10/27/2009 JANNET DENT MD 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 10/27/2009 MAXINE CLEARY APRN 919.4 Superficial Injury Of Other, Multiple, And Unspecified Sites, Insect Bite, Nonvenomous, Without Mention Of Infection 10/27/2009 MAXINE CLEARY APRN 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 10/27/2009 JANNET DENT MD 919.4 Superficial Injury Of Other, Multiple, And Unspecified Sites, Insect Bite, Nonvenomous, Without Mention Of Infection 10/27/2009 JANNET DENT MD 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 10/27/2009 [facility]19.[facility] Superficial Injury Of Other, Multiple, And Unspecified Sites, Insect Bite , Nonvenomous, Without Mention Of Infection 10/27/2009 [facility] 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 10/27/2009 TRACIE RIVERA MD 919.4 Superficial Injury Of Other, Multiple, And Unspecified Sites, Insect Bite, Nonvenomous, Without Mention Of Infection 10/27/2009 TRACIE RIVERA MD 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 10/27/2009 [facility] 919.[facility] Superficial Injury Of Other, Multiple, And Unspecified Sites, Insect Bite , Nonvenomous, Without Mention Of Infection 10/27/2009 DEBBIE ZARATEGLEN A 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 10/27/2009 DEBBIE ZARATEGLEN A 919.4 Superficial Injury Of Other, Multiple, And Unspecified Sites, Insect Bite , Nonvenomous, Without Mention Of Infection 10/27/2009 DEBBIE ZARATEGLEN A 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 10/27/2009 HEVER BOUCHER APRN 919.4 Superficial Injury Of Other, Multiple, And Unspecified Sites, Insect Bite, Nonvenomous, Without Mention Of Infection 10/27/2009 HEVER BOUCHER APRN 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 10/27/2009 MAXINE CLEARY APRN 919.4 Superficial Injury Of Other, Multiple, And Unspecified Sites, Insect Bite, Nonvenomous, Without Mention Of Infection 10/27/2009 MAXINE CLEARY APRN 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 10/27/2009 TOSHIA HOUSTON RN E 919.4 Superficial Injury Of Other, Multiple, And Unspecified Sites, Insect Bite, Nonvenomous, Without Mention Of Infection 10/27/2009 TOSHIA HOUSTON RN E 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 10/27/2009 TOSHIA HOUSTON RN E 919.4 Superficial Injury Of Other, Multiple, And Unspecified Sites, Insect Bite, Nonvenomous, Without Mention Of Infection 10/27/2009 TOSHIA HOUSTON RN E 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 10/27/2009 TOSHIA HOUSTON RN E 919.4 Superficial Injury Of Other, Multiple, And Unspecified Sites, Insect Bite, Nonvenomous, Without Mention Of Infection 10/27/2009 TOSHIA HOUSTON RN E 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 10/27/2009 TOSHIA HOUSTON RN E 919.4 Superficial Injury Of Other, Multiple, And Unspecified Sites, Insect Bite, Nonvenomous, Without Mention Of Infection 10/27/2009 TOSHIA HOUSTON RN E 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 10/27/2009 TOSHIA HOUSTON RN E 919.4 Superficial Injury Of Other, Multiple, And Unspecified Sites, Insect Bite, Nonvenomous, Without Mention Of Infection 10/27/2009 TOSHIA HOUSTON RN E 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 10/27/2009 TOSHIA HOUSTON RN E 919.4 Superficial Injury Of Other, Multiple, And Unspecified Sites, Insect Bite, Nonvenomous, Without Mention Of Infection 10/27/2009 TOSHIA HOUSTON RN E 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 10/27/2009 TOSHIA HOUSTON RN E 919.4 Superficial Injury Of Other, Multiple, And Unspecified Sites, Insect Bite, Nonvenomous, Without Mention Of Infection 10/27/2009 TOSHIA HOUSTON RN E 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 10/27/2009 TOSHIA HOUSTON RN E 919.4 Superficial Injury Of Other, Multiple, And Unspecified Sites, Insect Bite, Nonvenomous, Without Mention Of Infection 10/27/2009 TOSHIA HOUSTON RN E 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 10/27/2009 TOSHIA HOUSTON RN E 919.4 Superficial Injury Of Other, Multiple, And Unspecified Sites, Insect Bite, Nonvenomous, Without Mention Of Infection 10/27/2009 TOSHIA HOUSTON RN E 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 10/27/2009 GWENDOLYN DUVALL R 919.4 Superficial Injury Of Other, Multiple, And Unspecified Sites, Insect Bite, Nonvenomous, Without Mention Of Infection 10/27/2009 GWENDOLYN DUVALL R 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 10/27/2009 ZAN LA 919.4 Superficial Injury Of Other, Multiple, And Unspecified Sites, Insect Bite , Nonvenomous, Without Mention Of Infection 10/27/2009 ZAN AL 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 10/27/2009 ZAN AL 919.4 Superficial Injury Of Other, Multiple, And Unspecified Sites, Insect Bite , Nonvenomous, Without Mention Of Infection 10/27/2009 ZAN AL 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 10/27/2009 TOSHIA HOUSTON RN E 919.4 Superficial Injury Of Other, Multiple, And Unspecified Sites, Insect Bite, Nonvenomous, Without Mention Of Infection 10/27/2009 CELSO RN, TOSHIA E 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 12/29/2009 314.01 ADHD COMBINED 12/29/2009 314.01 ADHD COMBINED 12/29/2009 JANNET DENT MD 314.01 ADHD COMBINED 12/29/2009 EVIN CARTWRIGHT MAXINE PEDERSON 314.01 ADHD COMBINED 12/29/2009 314.01 ADHD COMBINED 12/29/2009 314.01 ADHD COMBINED 12/29/2009 314.01 ADHD COMBINED 12/29/2009 314.01 ADHD COMBINED 12/29/2009 314.01 ADHD COMBINED 12/29/2009 314.01 ADHD COMBINED 12/29/2009 314.01 ADHD COMBINED 12/29/2009 EVIN CARTWRIGHT, MAXINE PEDERSON 314.01 ADHD COMBINED 12/29/2009 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, LORI A 314.01 ADHD COMBINED 12/29/2009 EVIN CARTWRIGHT, MAXINE PEDERSON 314.01 ADHD COMBINED 12/29/2009 QUINTANA DO, MARK K 314.01 ADHD COMBINED 12/29/2009 [facility], GWENDOLYN R 314.01 ADHD COMBINED 12/29/2009 [facility], GLEN A 314.01 ADHD COMBINED 12/29/2009 EVIN 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, MAXINE PEDERSON 314.01 ADHD COMBINED 12/29/2009 RAJOTTE 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, CHARLIE A 314.01 ADHD COMBINED 12/29/2009 [facility], GLEN A 314.01 ADHD COMBINED 12/29/2009 314.01 ADHD COMBINED 12/29/2009 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, LORI A 314.01 ADHD COMBINED 12/29/2009 [facility], GLEN A 314.01 ADHD COMBINED 12/29/2009 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, LORI A 314.01 ADHD COMBINED 12/29/2009 QUINTANA DO, MARK K 314.01 ADHD COMBINED 12/29/2009 [facility], GLEN A 314.01 ADHD COMBINED 12/29/2009 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, LORI A 314.01 ADHD COMBINED 12/29/2009 [facility], GLEN A 314.01 ADHD COMBINED 12/29/2009 [facility], GLEN A 314.01 ADHD COMBINED 12/29/2009 JANNET EDNT MD 314.01 ADHD COMBINED 12/29/2009 EVIN CARTWRIGHT, MAXINE DACIA 314.01 ADHD COMBINED 12/29/2009 FILIPE LAGUNAS, JANNET 314.01 ADHD COMBINED 12/29/2009 [facility], GLEN A 314.01 ADHD COMBINED 12/29/2009 MIGUEL LAGUNAS, TRACIE 314.01 ADHD COMBINED 12/29/2009 [facility], GLEN A 314.01 ADHD COMBINED 12/29/2009 [facility], GLEN A 314.01 ADHD COMBINED 12/29/2009 HEVER BOUCHER APRN 314.01 ADHD COMBINED 12/29/2009 EVIN CARTWRIGHT, MAXINE DACIA 314.01 ADHD COMBINED 12/29/2009 CELSO RN, TOSHIA E 314.01 ADHD COMBINED 12/29/2009 CELSO RN, TOSHIA E 314.01 ADHD COMBINED 12/29/2009 CELSO RN, TOSHIA E 314.01 ADHD COMBINED 12/29/2009 CELSO RN, TOSHIA E 314.01 ADHD COMBINED 12/29/2009 CELSO RN, TOSHIA E 314.01 ADHD COMBINED 12/29/2009 CELSO RN, TOSHIA E 314.01 ADHD COMBINED 12/29/2009 CELSO RN, TOSHIA E 314.01 ADHD COMBINED 12/29/2009 CELSO RN, TOSHIA E 314.01 ADHD COMBINED 12/29/2009 CELSO RN, TOSHIA E 314.01 ADHD COMBINED 12/29/2009 [facility], GWENDOLYN Jackson 314.01 ADHD COMBINED 12/29/2009 [employer], ZAN M 314.01 ADHD COMBINED 12/29/2009 [employer] SPLICER, ZAN M 314.01 ADHD COMBINED 12/29/2009 CELSO RN, TOSHIA E 314.01 ADHD COMBINED 02/21/2010 382.00 OTITIS MEDIA ACUTE SUPPURATIVE 02/21/2010 465.9 UPPER RESPIRATORY INFECTION 02/21/2010 V04.81 FLU SHOT 02/21/2010 382.00 OTITIS MEDIA ACUTE SUPPURATIVE 02/21/2010 465.9 UPPER RESPIRATORY INFECTION 02/21/2010 V04.81 FLU SHOT 02/21/2010 FILIPE LAGUNAS, JANNET 382.00 Otitis Media Acute Suppurative 02/21/2010 FILIPE LAGUNAS, JANNET 465.9 Upper Respiratory Infection 02/21/2010 FILIPE LAGUNAS, JANNET V04.81 FLU SHOT 02/21/2010 EVIN CARTWRIGHT, MAXINE PEDERSON 382.00 Otitis Media Acute Suppurative 02/21/2010 MAXINE CLEARY APRN 465.9 Upper Respiratory Infection 02/21/2010 MAXINE CLEARY APRN V04.81 FLU SHOT 02/21/2010 382.00 Otitis Media Acute Suppurative 02/21/2010 465.9 Upper Respiratory Infection 02/21/2010 V04.81 FLU SHOT 02/21/2010 382.00 Otitis Media Acute Suppurative 02/21/2010 465.9 Upper Respiratory Infection 02/21/2010 V04.81 FLU SHOT 02/21/2010 382.00 Otitis Media Acute Suppurative 02/21/2010 465.9 Upper Respiratory Infection 02/21/2010 V04.81 FLU SHOT 02/21/2010 382.00 Otitis Media Acute Suppurative 02/21/2010 465.9 Upper Respiratory Infection 02/21/2010 V04.81 FLU SHOT 02/21/2010 382.00 Otitis Media Acute Suppurative 02/21/2010 465.9 Upper Respiratory Infection 02/21/2010 V04.81 FLU SHOT 02/21/2010 382.00 Otitis Media Acute Suppurative 02/21/2010 465.9 Upper Respiratory Infection 02/21/2010 V04.81 FLU SHOT 02/21/2010 382.00 Otitis Media Acute Suppurative 02/21/2010 465.9 Upper Respiratory Infection 02/21/2010 V04.81 FLU SHOT 02/21/2010 MAXINE CLEARY APRN 382.00 Otitis Media Acute Suppurative 02/21/2010 MAXINE CLEARY APRN 465.9 Upper Respiratory Infection 02/21/2010 MAXINE CLEARY APRN V04.81 FLU SHOT 02/21/2010 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, LORI A 382.00 Otitis Media Acute Suppurative 02/21/2010 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, LORI A 465.9 Upper Respiratory Infection 02/21/2010 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, LORI A V04.81 FLU SHOT 02/21/2010 MAXINE CLEARY APRN 382.00 Otitis Media Acute Suppurative 02/21/2010 MAXINE CLEARY APRN 465.9 Upper Respiratory Infection 02/21/2010 MAXINE CLEARY APRN V04.81 FLU SHOT 02/21/2010 MARK QUINTANA DO 382.00 Otitis Media Acute Suppurative 02/21/2010 NATALI QUINTANA DOA K 465.9 Upper Respiratory Infection 02/21/2010 QUINTANA DO, MARK K V04.81 FLU SHOT 02/21/2010 [facility], GWENDOLYN R 382.00 Otitis Media Acute Suppurative 02/21/2010 [facility], GWENDOLYN R 465.9 Upper Respiratory Infection 02/21/2010 [facility], GWENDOLYN R V04.81 FLU SHOT 02/21/2010 [facility], GLEN A 382.00 Otitis Media Acute Suppurative 02/21/2010 [facility], GLEN A 465.9 Upper Respiratory Infection 02/21/2010 [facility], GLEN A V04.81 FLU SHOT 02/21/2010 CLEARY 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, MAXINE PEDERSON 382.00 Otitis Media Acute Suppurative 02/21/2010 CLEARY 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, MAXINE PEDERSON 465.9 Upper Respiratory Infection 02/21/2010 CLEARY 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, MAXINE PEDERSON V04.81 FLU SHOT 02/21/2010 RAJOTTE 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, CHARLIE A 382.00 Otitis Media Acute Suppurative 02/21/2010 RAJOTTE 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, CHARLIE A 465.9 Upper Respiratory Infection 02/21/2010 RAJOTTE 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, CHARLIE A V04.81 FLU SHOT 02/21/2010 [facility], GLEN A 382.00 Otitis Media Acute Suppurative 02/21/2010 [facility], GLEN A 465.9 Upper Respiratory Infection 02/21/2010 [facility], GLEN A V04.81 FLU SHOT 02/21/2010 382.00 Otitis Media Acute Suppurative 02/21/2010 465.9 Upper Respiratory Infection 02/21/2010 V04.81 FLU SHOT 02/21/2010 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, LORI A 382.00 Otitis Media Acute Suppurative 02/21/2010 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, LORI A 465.9 Upper Respiratory Infection 02/21/2010 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, LORI A V04.81 FLU SHOT 02/21/2010 [facility], GLEN A 382.00 Otitis Media Acute Suppurative 02/21/2010 [facility], GLEN A 465.9 Upper Respiratory Infection 02/21/2010 [facility], GLEN A V04.81 FLU SHOT 02/21/2010 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, LORI A 382.00 Otitis Media Acute Suppurative 02/21/2010 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, LORI A 465.9 Upper Respiratory Infection 02/21/2010 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, LORI A V04.81 FLU SHOT 02/21/2010 QUINTANA DO, MARK K 382.00 Otitis Media Acute Suppurative 02/21/2010 QUINTANA DO, MARK K 465.9 Upper Respiratory Infection 02/21/2010 QUINTANA DO, MARK K V04.81 FLU SHOT 02/21/2010 [facility], GLEN A 382.00 Otitis Media Acute Suppurative 02/21/2010 [facility], GLEN A 465.9 Upper Respiratory Infection 02/21/2010 [facility], GLEN A V04.81 FLU SHOT 02/21/2010 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, LORI A 382.00 Otitis Media Acute Suppurative 02/21/2010 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, LORI A 465.9 Upper Respiratory Infection 02/21/2010 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, LORI A V04.81 FLU SHOT 02/21/2010 [facility], GLEN A 382.00 Otitis Media Acute Suppurative 02/21/2010 [facility], GLEN A 465.9 Upper Respiratory Infection 02/21/2010 [facility], GLEN A V04.81 FLU SHOT 02/21/2010 [facility], GLEN A 382.00 Otitis Media Acute Suppurative 02/21/2010 [facility], GLEN A 465.9 Upper Respiratory Infection 02/21/2010 [facility], GLEN A V04.81 FLU SHOT 02/21/2010 JANNET DENT MD 382.00 Otitis Media Acute Suppurative 02/21/2010 FILIPE LAGUNAS, JANNET 465.9 Upper Respiratory Infection 02/21/2010 FILIPE LAGUNAS, JANNET V04.81 FLU SHOT 02/21/2010 EVIN CARTWRIGHT, MAXINE PEDERSON 382.00 Otitis Media Acute Suppurative 02/21/2010 EVIN CARTWRIGHT, MAXINE PEDERSON 465.9 Upper Respiratory Infection 02/21/2010 EVIN CARTWRIGHT, MAXINE PEDERSON V04.81 FLU SHOT 02/21/2010 FILIPE LAGUNAS, JANNET 382.00 Otitis Media Acute Suppurative 02/21/2010 JANNET DENT MD 465.9 Upper Respiratory Infection 02/21/2010 JANNET DENT MD V04.81 FLU SHOT 02/21/2010 [facility], GLEN A 382.00 Otitis Media Acute Suppurative 02/21/2010 [facility], GLEN A 465.9 Upper Respiratory Infection 02/21/2010 [facility], GLEN A V04.81 FLU SHOT 02/21/2010 TRACIE RIVERA MD 382.00 Otitis Media Acute Suppurative 02/21/2010 TRACIE RIVERA MD 465.9 Upper Respiratory Infection 02/21/2010 TRACIE RIVERA MD V04.81 FLU SHOT 02/21/2010 [facility], GLEN A 382.00 Otitis Media Acute Suppurative 02/21/2010 [facility], GLEN A 465.9 Upper Respiratory Infection 02/21/2010 [facility], GLEN A V04.81 FLU SHOT 02/21/2010 [facility], GLEN A 382.00 Otitis Media Acute Suppurative 02/21/2010 [facility], GLEN A 465.9 Upper Respiratory Infection 02/21/2010 [facility], GLEN A V04.81 FLU SHOT 02/21/2010 CITL[employer]Y 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, HEVER 382.00 Otitis Media Acute Suppurative 02/21/2010 CITLALY 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, HEVER 465.9 Upper Respiratory Infection 02/21/2010 CITLALY 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, HEVER V04.81 FLU SHOT 02/21/2010 EVIN CARTWRIGHT, MAXINE PEDERSON 382.00 Otitis Media Acute Suppurative 02/21/2010 EVIN CARTWRIGHT, MAXINE PEDERSON 465.9 Upper Respiratory Infection 02/21/2010 CLEARYJOSE CARTWRIGHTMAXINE V04.81 FLU SHOT 02/21/2010 CELSO RN, TOSHIA E 382.00 Otitis Media Acute Suppurative 02/21/2010 CELSO RN, TOSHIA E 465.9 Upper Respiratory Infection 02/21/2010 CELSO RN, TOSHIA E V04.81 FLU SHOT 02/21/2010 CELSO RN, TOSHIA E 382.00 Otitis Media Acute Suppurative 02/21/2010 CELSO RN, TOSHIA E 465.9 Upper Respiratory Infection 02/21/2010 CELSO RN, TOSHIA E V04.81 FLU SHOT 02/21/2010 CELSO RN, TOSHIA E 382.00 Otitis Media Acute Suppurative 02/21/2010 CELSO NASH, TOSHIA E 465.9 Upper Respiratory Infection 02/21/2010 CELSO RN, TOSHIA E V04.81 FLU SHOT 02/21/2010 CELSO RN, TOSHIA E 382.00 Otitis Media Acute Suppurative 02/21/2010 CELSO RN, TOSHIA E 465.9 Upper Respiratory Infection 02/21/2010 CELSO RN, TOSHIA E V04.81 FLU SHOT 02/21/2010 CELSO RN, TOSHIA E 382.00 Otitis Media Acute Suppurative 02/21/2010 CELSO RN, TOSHIA E 465.9 Upper Respiratory Infection 02/21/2010 [place] RN, TOSHIA E V04.81 FLU SHOT 02/21/2010 [place] RN, TOSHIA E 382.00 Otitis Media Acute Suppurative 02/21/2010 CELSO RN, TOSHIA E 465.9 Upper Respiratory Infection 02/21/2010 CELSO RN, TOSHIA E V04.81 FLU SHOT 02/21/2010 CELSO RN, TOSHIA E 382.00 Otitis Media Acute Suppurative 02/21/2010 CELSO RN, TOSHIA E 465.9 Upper Respiratory Infection 02/21/2010 CELSO RN, TOSHIA E V04.81 FLU SHOT 02/21/2010 [place] RN, TOSHIA E 382.00 Otitis Media Acute Suppurative 02/21/2010 CELSO RN, TOSHIA E 465.9 Upper Respiratory Infection 02/21/2010 CELSO RN, TOSHIA E V04.81 FLU SHOT 02/21/2010 CELSO RN, TOSHIA E 382.00 Otitis Media Acute Suppurative 02/21/2010 CELSO RN, TOSHIA E 465.9 Upper Respiratory Infection 02/21/2010 CELSO RN, TOSHIA E V04.81 FLU SHOT 02/21/2010 [facility], GWEND[place]YN R 382.00 Otitis Media Acute Suppurative 02/21/2010 [facility], GWENDOLYN R 465.9 Upper Respiratory Infection 02/21/2010 [facility], GWEND[place]YN R V04.81 FLU SHOT 02/21/2010 [facility] [facility], ZAN M 382.00 Otitis Media Acute Suppurative 02/21/2010 ZAN AL M 465.9 Upper Respiratory Infection 02/21/2010 [place], ZAN M V04.81 FLU SHOT 02/21/2010 [facility], ZAN M 382.00 Otitis Media Acute Suppurative 02/21/2010 [place] ALISTIN M 465.9 Upper Respiratory Infection 02/21/2010 [place], ZAN M V04.81 FLU SHOT 02/21/2010 CELSO NASH, TOSHIA E 382.00 Otitis Media Acute Suppurative 02/21/2010 [facility] NASH, TOSHIA Moore 465.9 Upper Respiratory Infection 02/21/2010 CELSO NASH, TOSHIA Moore V04.81 FLU SHOT 06/30/2010 311 DEPRESSIVE DISORDER NOS 06/30/2010 311 DEPRESSIVE DISORDER NOS 06/30/2010 JANNET DENT MD 311 DEPRESSIVE DISORDER NOS 06/30/2010 MAXINE CLEARY APRN 311 DEPRESSIVE DISORDER NOS 06/30/2010 311 DEPRESSIVE DISORDER NOS 06/30/2010 311 DEPRESSIVE DISORDER NOS 06/30/2010 311 DEPRESSIVE DISORDER NOS 06/30/2010 311 DEPRESSIVE DISORDER NOS 06/30/2010 311 DEPRESSIVE DISORDER NOS 06/30/2010 311 DEPRESSIVE DISORDER NOS 06/30/2010 311 DEPRESSIVE DISORDER NOS 06/30/2010 MAXINE CLEARY APRN 311 DEPRESSIVE DISORDER NOS 06/30/2010 WOLF MCKEON APRNIDI A 311 DEPRESSIVE DISORDER NOS 06/30/2010 MAXINE CLEARY APRN 311 DEPRESSIVE DISORDER NOS 06/30/2010 NATALI QUINTANA DOA K 311 DEPRESSIVE DISORDER NOS 06/30/2010 [facility], GWENDOLYN R 311 DEPRESSIVE DISORDER NOS 06/30/2010 [facility], GLEN A 311 DEPRESSIVE DISORDER NOS 06/30/2010 MAXINE CLEARY APRN 311 DEPRESSIVE DISORDER NOS 06/30/2010 CHARLIE FRIAS APRN A 311 DEPRESSIVE DISORDER NOS 06/30/2010 [facility], GLEN A 311 DEPRESSIVE DISORDER NOS 06/30/2010 311 DEPRESSIVE DISORDER NOS 06/30/2010 LINDA CARTWRIGHT LORI A 311 DEPRESSIVE DISORDER NOS 06/30/2010 [facility], GLEN A 311 DEPRESSIVE DISORDER NOS 06/30/2010 LINDA CARTWRIGHT LORI A 311 DEPRESSIVE DISORDER NOS 06/30/2010 QUINTANA DO, MARK K 311 DEPRESSIVE DISORDER NOS 06/30/2010 [facility], GLEN A 311 DEPRESSIVE DISORDER NOS 06/30/2010 LINDA CARTWRIGHT LORI A 311 DEPRESSIVE DISORDER NOS 06/30/2010 [facility], GLEN A 311 DEPRESSIVE DISORDER NOS 06/30/2010 [facility], GLEN A 311 DEPRESSIVE DISORDER NOS 06/30/2010 JANNET DENT MD 311 DEPRESSIVE DISORDER NOS 06/30/2010 MAXINE CLEARY APRN 311 DEPRESSIVE DISORDER NOS 06/30/2010 JANNET DENT MD 311 DEPRESSIVE DISORDER NOS 06/30/2010 [facility], GLEN A 311 DEPRESSIVE DISORDER NOS 06/30/2010 TRACIE RIVERA MD 311 DEPRESSIVE DISORDER NOS 06/30/2010 [facility], GLEN A 311 DEPRESSIVE DISORDER NOS 06/30/2010 [facility], GLEN A 311 DEPRESSIVE DISORDER NOS 06/30/2010 HEVER BOUCHER APRN 311 DEPRESSIVE DISORDER NOS 06/30/2010 MAXINE CLEARY APRN 311 DEPRESSIVE DISORDER NOS 06/30/2010 CELSO NASH, TOSHIA E 311 DEPRESSIVE DISORDER NOS 06/30/2010 CELSO NASH, TOSHIA E 311 DEPRESSIVE DISORDER NOS 06/30/2010 CELSO NASH, TOSHIA E 311 DEPRESSIVE DISORDER NOS 06/30/2010 CELSO NASH, TOSHIA E 311 DEPRESSIVE DISORDER NOS 06/30/2010 CELSO NASH, TOSHIA E 311 DEPRESSIVE DISORDER NOS 06/30/2010 CELSO NASH, TOSHIA E 311 DEPRESSIVE DISORDER NOS 06/30/2010 CELSO NASH, TOSHIA E 311 DEPRESSIVE DISORDER NOS 06/30/2010 CELSO NASH, TOSHIA E 311 DEPRESSIVE DISORDER NOS 06/30/2010 CELSO NASH, TOSHIA E 311 DEPRESSIVE DISORDER NOS 06/30/2010 [facility], [place] R 311 DEPRESSIVE DISORDER NOS 06/30/2010 ZAN AL M 311 DEPRESSIVE DISORDER NOS 06/30/2010 ZAN AL M 311 DEPRESSIVE DISORDER NOS 06/30/2010 CELSO NASH, TOSHIA E 311 DEPRESSIVE DISORDER NOS 08/16/2010 296.90 MO MOOD DIS NOS 08/16/2010 296.90 MO MOOD DIS NOS 08/16/2010 JANNET DENT MD 296.90 MO MOOD DIS NOS 08/16/2010 MAXINE CLEARY APRN 296.90 MO MOOD DIS NOS 08/16/2010 296.90 MO MOOD DIS NOS 08/16/2010 296.90 MO MOOD DIS NOS 08/16/2010 296.90 MO MOOD DIS NOS 08/16/2010 296.90 MO MOOD DIS NOS 08/16/2010 296.90 MO MOOD DIS NOS 08/16/2010 296.90 MO MOOD DIS NOS 08/16/2010 296.90 MO MOOD DIS NOS 08/16/2010 MAXINE CLEARY APRN 296.90 MO MOOD DIS NOS 08/16/2010 LORI MCKEON APRN 296.90 MO MOOD DIS NOS 08/16/2010 CLEARY 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, MAXINE GUZMANH 296.90 MO MOOD DIS NOS 08/16/2010 QUINTANA DO, MARK K 296.90 MO MOOD DIS NOS 08/16/2010 SEL[facility]YN [facility], GWENDOLYN R 296.90 MO MOOD DIS NOS 08/16/2010 [facility], GLEN A 296.90 MO MOOD DIS NOS 08/16/2010 CLEARY 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, MAXINE PEDERSON 296.90 MO MOOD DIS NOS 08/16/2010 ABELINO FRIAS APRNYL A 296.90 MO MOOD DIS NOS 08/16/2010 [facility], GLEN A 296.90 MO MOOD DIS NOS 08/16/2010 296.90 MO MOOD DIS NOS 08/16/2010 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, LORI A 296.90 MO MOOD DIS NOS 08/16/2010 [facility], GLEN A 296.90 MO MOOD DIS NOS 08/16/2010 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, LORI A 296.90 MO MOOD DIS NOS 08/16/2010 MARIANO DO, MARK K 296.90 MO MOOD DIS NOS 08/16/2010 [facility], GLEN A 296.90 MO MOOD DIS NOS 08/16/2010 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, LORI A 296.90 MO MOOD DIS NOS 08/16/2010 [facility], GLEN A 296.90 MO MOOD DIS NOS 08/16/2010 [facility] 296.90 MO MOOD DIS NOS 08/16/2010 JANNET DENT MD 296.90 MO MOOD DIS NOS 08/16/2010 MAXINE CLEARY APRN 296.90 MO MOOD DIS NOS 08/16/2010 JANNET DENT MD 296.90 MO MOOD DIS NOS 08/16/2010 [facility] 296.90 MO MOOD DIS NOS 08/16/2010 TRACIE RIVERA MD 296.90 MO MOOD DIS NOS 08/16/2010 [facility], GLEN A 296.90 MO MOOD DIS NOS 08/16/2010 [facility], GLEN A 296.90 MO MOOD DIS NOS 08/16/2010 HEVER BOUCHER APRN 296.90 MO MOOD DIS NOS 08/16/2010 MAXINE CLEARY APRN 296.90 MO MOOD DIS NOS 08/16/2010 TOSHIA [place] RN 296.90 MO MOOD DIS NOS 08/16/2010 CELSO RN, TOSHIA E 296.90 MO MOOD DIS NOS 08/16/2010 CELSO RN, TOSHIA E 296.90 MO MOOD DIS NOS 08/16/2010 CELSO RN, TOSHIA E 296.90 MO MOOD DIS NOS 08/16/2010 [place] RN, TOSHIA E 296.90 MO MOOD DIS NOS 08/16/2010 CELSO RN, TOSHIA E 296.90 MO MOOD DIS NOS 08/16/2010 CELSO RN, TOSHIA E 296.90 MO MOOD DIS NOS 08/16/2010 CELSO RN, TOSHIA E 296.90 MO MOOD DIS NOS 08/16/2010 CELSO RN, TOSHIA E 296.90 MO MOOD DIS NOS 08/16/2010 [facility], GWENDOLYN R 296.90 MO MOOD DIS NOS 08/16/2010 ZAN AL M 296.90 MO MOOD DIS NOS 08/16/2010 [facility], ZAN M 296.90 MO MOOD DIS NOS 08/16/2010 CELSO NASH, TOSHIA E 296.90 MO MOOD DIS NOS 10/26/2010 706.1 ACNE 10/26/2010 706.1 ACNE 10/26/2010 JANNET DENT MD 706.1 ACNE 10/26/2010 MAXINE CLEARY APRN 706.1 ACNE 10/26/2010 706.1 ACNE 10/26/2010 706.1 ACNE 10/26/2010 706.1 ACNE 10/26/2010 706.1 ACNE 10/26/2010 706.1 ACNE 10/26/2010 706.1 ACNE 10/26/2010 706.1 ACNE 10/26/2010 EVIN CARTWRIGHT MAXINE DACIA 706.1 ACNE 10/26/2010 LORI MCKEON APRN A 706.1 ACNE 10/26/2010 EVIN CARTWRIGHT MAXINE DACIA 706.1 ACNE 10/26/2010 MARK QUINTANA DO 706.1 ACNE 10/26/2010 [facility], GWENDOLYN R 706.1 ACNE 10/26/2010 [facility], GLEN A 706.1 ACNE 10/26/2010 MAXINE CLEARY APRN 706.1 ACNE 10/26/2010 CHARLIE FRIAS APRN A 706.1 ACNE 10/26/2010 [facility], GLEN A 706.1 ACNE 10/26/2010 706.1 ACNE 10/26/2010 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, LORI A 706.1 ACNE 10/26/2010 [facility], GLEN A 706.1 ACNE 10/26/2010 LINDA ACOSTAN, LORI A 706.1 ACNE 10/26/2010 MARIANO MARK WOODY Jenna 706.1 ACNE 10/26/2010 [facility], GLEN A 706.1 ACNE 10/26/2010 LINDA ACOSTAN, LORI A 706.1 ACNE 10/26/2010 [facility], GLEN A 706.1 ACNE 10/26/2010 [facility] 706.1 ACNE 10/26/2010 JANNET DENT MD 706.1 ACNE 10/26/2010 EVIN CARTWRIGHT, MAXINE PEDERSON 706.1 ACNE 10/26/2010 FILIPE LAGUNAS, JANNET 706.1 ACNE 10/26/2010 [facility] 706.1 ACNE 10/26/2010 TRACIE RIVERA MD 706.1 ACNE 10/26/2010 [facility] 706.1 ACNE 10/26/2010 [facility] 706.1 ACNE 10/26/2010 HEVER BOUCHER APRN 706.1 ACNE 10/26/2010 MAXINE CLEARY APRN 706.1 ACNE 10/26/2010 CELSO NASH, TOSHIA E 706.1 ACNE 10/26/2010 CEL[facility] NASH, TOSHIA E 706.1 ACNE 10/26/2010 CEL[facility] NASH, TOSHIA E 706.1 ACNE 10/26/2010 CELSO NASH, TOSHIA E 706.1 ACNE 10/26/2010 CELSO NASH, TOSHIA E 706.1 ACNE 10/26/2010 CELSO RN, TOSHIA E 706.1 ACNE 10/26/2010 CELSO NASH, TOSHIA E 706.1 ACNE 10/26/2010 CELSO NASH, TOSHIA E 706.1 ACNE 10/26/2010 CELSO NASH, TOSHIA E 706.1 ACNE 10/26/2010 [facility], GWENDOLYN R 706.1 ACNE 10/26/2010 ZAN AL 706.1 ACNE 10/26/2010 ZAN AL 706.1 ACNE 10/26/2010 CELSO RN, TOSHIA Moore 706.1 ACNE 01/20/2011 V25.01 CONTRACEPTION - ORAL CONTRACEPTION 01/20/2011 V65.45 COUNSELING - STD 01/20/2011 V25.01 CONTRACEPTION - ORAL CONTRACEPTION 01/20/2011 V65.45 COUNSELING - STD 01/20/2011 FILIPE LAGUNAS, JANNET V25.01 CONTRACEPTION - ORAL CONTRACEPTION 01/20/2011 JANNET DENT MD V65.45 COUNSELING - STD 01/20/2011 EVIN CARTWRIGHT MAXINE DACIA V25.01 CONTRACEPTION - ORAL CONTRACEPTION 01/20/2011 EVIN CARTWRIGHT MAXINE DACIA V65.45 COUNSELING - STD 01/20/2011 V25.01 CONTRACEPTION - ORAL CONTRACEPTION 01/20/2011 V65.45 COUNSELING - STD 01/20/2011 V25.01 CONTRACEPTION - ORAL CONTRACEPTION 01/20/2011 V65.45 COUNSELING - STD 01/20/2011 V25.01 CONTRACEPTION - ORAL CONTRACEPTION 01/20/2011 V65.45 COUNSELING - STD 01/20/2011 V25.01 CONTRACEPTION - ORAL CONTRACEPTION 01/20/2011 V65.45 COUNSELING - STD 01/20/2011 V25.01 CONTRACEPTION - ORAL CONTRACEPTION 01/20/2011 V65.45 COUNSELING - STD 01/20/2011 V25.01 CONTRACEPTION - ORAL CONTRACEPTION 01/20/2011 V65.45 COUNSELING - STD 01/20/2011 V25.01 CONTRACEPTION - ORAL CONTRACEPTION 01/20/2011 V65.45 COUNSELING - STD 01/20/2011 EVIN CARTWRIGHT MAXINE DACIA V25.01 CONTRACEPTION - ORAL CONTRACEPTION 01/20/2011 EVIN CARTWRIGHT MAXINE DACIA V65.45 COUNSELING - STD 01/20/2011 LINDA CARTWRIGHT LORI A V25.01 CONTRACEPTION - ORAL CONTRACEPTION 01/20/2011 LINDAIsrael CARTWRIGHT LORI A V65.45 COUNSELING - STD 01/20/2011 EVIN CARTWRIGHT MAXINE DACIA V25.01 CONTRACEPTION - ORAL CONTRACEPTION 01/20/2011 EVIN CARTWRIGHT MAXINE DACIA V65.45 COUNSELING - STD 01/20/2011 QUINTANA DOMARK V25.01 CONTRACEPTION - ORAL CONTRACEPTION 01/20/2011 QUINTANA DOMARK V65.45 COUNSELING - STD 01/20/2011 [facility] V25.01 CONTRACEPTION - ORAL CONTRACEPTION 01/20/2011 [facility] V65.45 COUNSELING - STD 01/20/2011 [facility] V25.01 CONTRACEPTION - ORAL CONTRACEPTION 01/20/2011 [facility] V65.45 COUNSELING - STD 01/20/2011 CLEARY APRN, MAXINE PEDERSON V25.01 CONTRACEPTION - ORAL CONTRACEPTION 01/20/2011 CLEARY 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, MAXINE PEDERSON V65.45 COUNSELING - STD 01/20/2011 RAJOTTE 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, CHARLIE A V25.01 CONTRACEPTION - ORAL CONTRACEPTION 01/20/2011 JOSE ROTTE 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, CHARLIE A V65.45 COUNSELING - STD 01/20/2011 [facility] V25.01 CONTRACEPTION - ORAL CONTRACEPTION 01/20/2011 [facility] Junior V65.45 COUNSELING - STD 01/20/2011 V25.01 CONTRACEPTION - ORAL CONTRACEPTION 01/20/2011 V65.45 COUNSELING - STD 01/20/2011 LINDAIsrael CARTWRIGHT LORI A V25.01 CONTRACEPTION - ORAL CONTRACEPTION 01/20/2011 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, LORI A V65.45 COUNSELING - STD 01/20/2011 [facility], GLEN A V25.01 CONTRACEPTION - ORAL CONTRACEPTION 01/20/2011 [facility] Junior V65.45 COUNSELING - STD 01/20/2011 LINDAIsrael CARTWRIGHT LORI A V25.01 CONTRACEPTION - ORAL CONTRACEPTION 01/20/2011 LINDA CHAY LORI A V65.45 COUNSELING - STD 01/20/2011 MARK QUINTANA DO V25.01 CONTRACEPTION - ORAL CONTRACEPTION 01/20/2011 MARIANO DONATALIA K V65.45 COUNSELING - STD 01/20/2011 [facility] V25.01 CONTRACEPTION - ORAL CONTRACEPTION 01/20/2011 [facility] Junior V65.45 COUNSELING - STD 01/20/2011 LINDAIsrael CARTWRIGHT LORI A V25.01 CONTRACEPTION - ORAL CONTRACEPTION 01/20/2011 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 LORI A V65.45 COUNSELING - STD 01/20/2011 [facility] Junior V25.01 CONTRACEPTION - ORAL CONTRACEPTION 01/20/2011 [facility] A V65.45 COUNSELING - STD 01/20/2011 [facility], GLEN A V25.01 CONTRACEPTION - ORAL CONTRACEPTION 01/20/2011 [facility], GLEN A V65.45 COUNSELING - STD 01/20/2011 FILIPE LAGUNAS, JANNET V25.01 CONTRACEPTION - ORAL CONTRACEPTION 01/20/2011 FILIPE LAGUNAS, JANNET V65.45 COUNSELING - STD 01/20/2011 MAXINE CLEARY APRN V25.01 CONTRACEPTION - ORAL CONTRACEPTION 01/20/2011 EVIN CARTWRIGHT, MAXINE PEDERSON V65.45 COUNSELING - STD 01/20/2011 FILIPE LAGUNAS, JANNET V25.01 CONTRACEPTION - ORAL CONTRACEPTION 01/20/2011 FILIPE LAGUNAS, JANNET V65.45 COUNSELING - STD 01/20/2011 [facility], GLEN A V25.01 CONTRACEPTION - ORAL CONTRACEPTION 01/20/2011 [facility], GLEN A V65.45 COUNSELING - STD 01/20/2011 TRACIE RIVERA MD V25.01 CONTRACEPTION - ORAL CONTRACEPTION 01/20/2011 TRACIE RIVERA MD V65.45 COUNSELING - STD 01/20/2011 [facility], GLEN A V25.01 CONTRACEPTION - ORAL CONTRACEPTION 01/20/2011 [facility], GLEN A V65.45 COUNSELING - STD 01/20/2011 [facility], GLEN A V25.01 CONTRACEPTION - ORAL CONTRACEPTION 01/20/2011 [facility], GLEN A V65.45 COUNSELING - STD 01/20/2011 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, HEVER V25.01 CONTRACEPTION - ORAL CONTRACEPTION 01/20/2011 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, HEVER V65.45 COUNSELING - STD 01/20/2011 MAXINE CLEARY APRN V25.01 CONTRACEPTION - ORAL CONTRACEPTION 01/20/2011 MAXINE CLEARY APRN V65.45 COUNSELING - STD 01/20/2011 CELSO NASH, TOSHAI Moore V25.01 CONTRACEPTION - ORAL CONTRACEPTION 01/20/2011 TOSHIA HOUSTON RN V65.45 COUNSELING - STD 01/20/2011 CELSO NASH, TOSHIA E V25.01 CONTRACEPTION - ORAL CONTRACEPTION 01/20/2011 CELSO NASH, TOSHIA E V65.45 COUNSELING - STD 01/20/2011 TOSHIA HOUSTON RN V25.01 CONTRACEPTION - ORAL CONTRACEPTION 01/20/2011 [place] RN, TOSHIA E V65.45 COUNSELING - STD 01/20/2011 CELSO NASH, TOSHIA E V25.01 CONTRACEPTION - ORAL CONTRACEPTION 01/20/2011 TOSHIA HOUSTON RN E V65.45 COUNSELING - STD 01/20/2011 TOSHIA HOUSTON RN E V25.01 CONTRACEPTION - ORAL CONTRACEPTION 01/20/2011 TOSHIA HOUSTON RN E V65.45 COUNSELING - STD 01/20/2011 TOSHIA HOUSTON RN E V25.01 CONTRACEPTION - ORAL CONTRACEPTION 01/20/2011 TOSHIA HOUSTON RN E V65.45 COUNSELING - STD 01/20/2011 TOSHIA HOUSTON RN E V25.01 CONTRACEPTION - ORAL CONTRACEPTION 01/20/2011 TOSHIA HOUSTON RN E V65.45 COUNSELING - STD 01/20/2011 TOSHIA HOUSTON RN V25.01 CONTRACEPTION - ORAL CONTRACEPTION 01/20/2011 TOSHIA HOUSTON RN E V65.45 COUNSELING - STD 01/20/2011 TOSHIA HOUSTON RN V25.01 CONTRACEPTION - ORAL CONTRACEPTION 01/20/2011 TOSHIA HOUSTON RN V65.45 COUNSELING - STD 01/20/2011 [facility], GWENDOLYN R V25.01 CONTRACEPTION - ORAL CONTRACEPTION 01/20/2011 [facility], GWENDOLYN R V65.45 COUNSELING - STD 01/20/2011 ZAN AL M V25.01 CONTRACEPTION - ORAL CONTRACEPTION 01/20/2011 ZAN AL V65.45 COUNSELING - STD 01/20/2011 ZAN AL M V25.01 CONTRACEPTION - ORAL CONTRACEPTION 01/20/2011 ZAN AL M V65.45 COUNSELING - STD 01/20/2011 TOSHIA HOUSTON RN E V25.01 CONTRACEPTION - ORAL CONTRACEPTION 01/20/2011 TOSHIA HOUSTON RN E V65.45 COUNSELING - STD 01/30/2011 626.4 IRREGULAR MENSTRUAL CYCLE 01/30/2011 626.4 IRREGULAR MENSTRUAL CYCLE 01/30/2011 JANNET DENT MD 626.4 IRREGULAR MENSTRUAL CYCLE 01/30/2011 MAXINE CLEARY APRN 626.4 IRREGULAR MENSTRUAL CYCLE 01/30/2011 626.4 IRREGULAR MENSTRUAL CYCLE 01/30/2011 626.4 IRREGULAR MENSTRUAL CYCLE 01/30/2011 626.4 IRREGULAR MENSTRUAL CYCLE 01/30/2011 626.4 IRREGULAR MENSTRUAL CYCLE 01/30/2011 626.4 IRREGULAR MENSTRUAL CYCLE 01/30/2011 626.4 IRREGULAR MENSTRUAL CYCLE 01/30/2011 626.4 IRREGULAR MENSTRUAL CYCLE 01/30/2011 MAXINE CLEARY APRNH 626.4 IRREGULAR MENSTRUAL CYCLE 01/30/2011 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, LORI A 626.4 IRREGULAR MENSTRUAL CYCLE 01/30/2011 EVIN ACOSTANMAXINE DACIA 626.4 IRREGULAR MENSTRUAL CYCLE 01/30/2011 MARK QUINTANA DO K 626.4 IRREGULAR MENSTRUAL CYCLE 01/30/2011 SELWYN [facility], GWENDOLYN R 626.4 IRREGULAR MENSTRUAL CYCLE 01/30/2011 [facility], GLEN A 626.4 IRREGULAR MENSTRUAL CYCLE 01/30/2011 MAXINE CLEARY APRN 626.4 IRREGULAR MENSTRUAL CYCLE 01/30/2011 ABELINO FRIAS APRNYL A 626.4 IRREGULAR MENSTRUAL CYCLE 01/30/2011 [facility], GLEN A 626.4 IRREGULAR MENSTRUAL CYCLE 01/30/2011 626.4 IRREGULAR MENSTRUAL CYCLE 01/30/2011 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, LORI A 626.4 IRREGULAR MENSTRUAL CYCLE 01/30/2011 LEWIS LSCS, GLEN A 626.4 IRREGULAR MENSTRUAL CYCLE 01/30/2011 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, LORI A 626.4 IRREGULAR MENSTRUAL CYCLE 01/30/2011 MARK QUINTANA DO K 626.4 IRREGULAR MENSTRUAL CYCLE 01/30/2011 LEWIS LSCS, GLEN A 626.4 IRREGULAR MENSTRUAL CYCLE 01/30/2011 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, LORI A 626.4 IRREGULAR MENSTRUAL CYCLE 01/30/2011 LEWIS LSCS, GLEN A 626.4 IRREGULAR MENSTRUAL CYCLE 01/30/2011 LEWIS LSCS, GLEN A 626.4 IRREGULAR MENSTRUAL CYCLE 01/30/2011 JANNET DENT MD 626.4 IRREGULAR MENSTRUAL CYCLE 01/30/2011 MAXINE CLEARY APRN 626.4 IRREGULAR MENSTRUAL CYCLE 01/30/2011 JANNET DENT MD 626.4 IRREGULAR MENSTRUAL CYCLE 01/30/2011 LEWIS LSCS, GLEN A 626.4 IRREGULAR MENSTRUAL CYCLE 01/30/2011 TRACIE RIVERA MD 626.4 IRREGULAR MENSTRUAL CYCLE 01/30/2011 LEWIS LSCS, GLEN A 626.4 IRREGULAR MENSTRUAL CYCLE 01/30/2011 LEWIS LSCS, GLEN A 626.4 IRREGULAR MENSTRUAL CYCLE 01/30/2011 HEVER BOUCHER APRN 626.4 IRREGULAR MENSTRUAL CYCLE 01/30/2011 MAXINE CLEARY APRN 626.4 IRREGULAR MENSTRUAL CYCLE 01/30/2011 CELSO RN, TOSHIA E 626.4 IRREGULAR MENSTRUAL CYCLE 01/30/2011 CELSO NASH, TOSHIA E 626.4 IRREGULAR MENSTRUAL CYCLE 01/30/2011 CELSO RN, TOSHIA E 626.4 IRREGULAR MENSTRUAL CYCLE 01/30/2011 CELSO RN, TOSHIA E 626.4 IRREGULAR MENSTRUAL CYCLE 01/30/2011 [place] RN, TOSHIA E 626.4 IRREGULAR MENSTRUAL CYCLE 01/30/2011 CELSO RN, TOSHIA E 626.4 IRREGULAR MENSTRUAL CYCLE 01/30/2011 CELSO RN, TOSHIA E 626.4 IRREGULAR MENSTRUAL CYCLE 01/30/2011 CELSO RN, TOSHIA E 626.4 IRREGULAR MENSTRUAL CYCLE 01/30/2011 CELSO NASH, TOSHIA E 626.4 IRREGULAR MENSTRUAL CYCLE 01/30/2011 [facility], GWENDOLYN Jackson 626.4 IRREGULAR MENSTRUAL CYCLE 01/30/2011 KINGS HGUHES, ZAN M 626.4 IRREGULAR MENSTRUAL CYCLE 01/30/2011 ZAN AL M 626.4 IRREGULAR MENSTRUAL CYCLE 01/30/2011 CELSO NASH, TOSHIA E 626.4 IRREGULAR MENSTRUAL CYCLE 02/14/2011 461.9 SINUSITIS ACUTE 02/14/2011 V25.09 CONTRACEPTIVE COUNSELING - GENERAL 02/14/2011 461.9 SINUSITIS ACUTE 02/14/2011 V25.09 CONTRACEPTIVE COUNSELING - GENERAL 02/14/2011 JANNET DENT MD 461.9 Sinusitis Acute 02/14/2011 JANNET DENT MD V25.09 CONTRACEPTIVE COUNSELING - GENERAL 02/14/2011 MAXINE CLEARY APRN 461.9 Sinusitis Acute 02/14/2011 MAXINE CLEARY APRN V25.09 CONTRACEPTIVE COUNSELING - GENERAL 02/14/2011 461.9 Sinusitis Acute 02/14/2011 V25.09 CONTRACEPTIVE COUNSELING - GENERAL 02/14/2011 461.9 Sinusitis Acute 02/14/2011 V25.09 CONTRACEPTIVE COUNSELING - GENERAL 02/14/2011 461.9 Sinusitis Acute 02/14/2011 V25.09 CONTRACEPTIVE COUNSELING - GENERAL 02/14/2011 461.9 Sinusitis Acute 02/14/2011 V25.09 CONTRACEPTIVE COUNSELING - GENERAL 02/14/2011 461.9 Sinusitis Acute 02/14/2011 V25.09 CONTRACEPTIVE COUNSELING - GENERAL 02/14/2011 461.9 Sinusitis Acute 02/14/2011 V25.09 CONTRACEPTIVE COUNSELING - GENERAL 02/14/2011 461.9 Sinusitis Acute 02/14/2011 V25.09 CONTRACEPTIVE COUNSELING - GENERAL 02/14/2011 EVIN CHAY MAXINE GUZMANH 461.9 Sinusitis Acute 02/14/2011 EVIN ACOSTAIsrael MAXINE PEDERSON V25.09 CONTRACEPTIVE COUNSELING - GENERAL 02/14/2011 WOLF MCKEON APRNIDI A 461.9 Sinusitis Acute 02/14/2011 WOLF MCKEON APRNIDI A V25.09 CONTRACEPTIVE COUNSELING - GENERAL 02/14/2011 EVIN ACOSTAIsrael MAXINE DACIA 461.9 Sinusitis Acute 02/14/2011 EVIN ACOSTAIsrael MAXINE PEDERSON V25.09 CONTRACEPTIVE COUNSELING - GENERAL 02/14/2011 NATALI QUINTANA DOA K 461.9 Sinusitis Acute 02/14/2011 QUINTANA DONATALIA K V25.09 CONTRACEPTIVE COUNSELING - GENERAL 02/14/2011 [facility], GWENDOLYN R 461.9 Sinusitis Acute 02/14/2011 SELWYN CS, GWENDOLYN R V25.09 CONTRACEPTIVE COUNSELING - GENERAL 02/14/2011 [facility] Acute 02/14/2011 [facility] V25.09 CONTRACEPTIVE COUNSELING - GENERAL 02/14/2011 EVIN ACOSTAIsrael MAXINE DACIA 461.9 Sinusitis Acute 02/14/2011 EVIN ACOSTAIsrael MAXINE DACIA V25.09 CONTRACEPTIVE COUNSELING - GENERAL 02/14/2011 ABELINO FRIAS APRNYL A 461.9 Sinusitis Acute 02/14/2011 ALTAGRACIA CARTWRIGHT CHARLIE A V25.09 CONTRACEPTIVE COUNSELING - GENERAL 02/14/2011 [facility] 461.[facility] Sinus[facility] Acute 02/14/2011 DEBBIE LUISGLEN A V25.09 CONTRACEPTIVE COUNSELING - GENERAL 02/14/2011 461.9 Sinusitis Acute 02/14/2011 V25.09 CONTRACEPTIVE COUNSELING - GENERAL 02/14/2011 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, LORI A 461.9 Sinusitis Acute 02/14/2011 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, LORI A V25.09 CONTRACEPTIVE COUNSELING - GENERAL 02/14/2011 DEBBIE GLEN WYATT A 461.9 Sinusitis Acute 02/14/2011 DEBBIE LSCS, GLEN A V25.09 CONTRACEPTIVE COUNSELING - GENERAL 02/14/2011 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, LORI A 461.9 Sinusitis Acute 02/14/2011 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, LORI A V25.09 CONTRACEPTIVE COUNSELING -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 QUINTANA DOMARK V25.02 CONTRACEPTION - ANY METHOD 12/11/2012 [facility], [place] Junior V25.02 CONTRACEPTION - ANY METHOD 12/11/2012 LINDA CARTWRIGHT LORI A V25.02 CONTRACEPTION - ANY METHOD 12/11/2012 [facility], [place] Junior V25.02 CONTRACEPTION - ANY METHOD 12/11/2012 [facility], [place] Junior V25.02 CONTRACEPTION - ANY METHOD 12/11/2012 JANNET DENT MD V25.02 CONTRACEPTION - ANY METHOD 12/11/2012 MAXINE CLEARY APRN V25.02 CONTRACEPTION - ANY METHOD 12/11/2012 JANNET DENT MD V25.02 CONTRACEPTION - ANY METHOD 12/11/2012 [facility], [place] Junior V25.02 CONTRACEPTION - ANY METHOD 12/11/2012 TRACIE RIVERA MD V25.02 CONTRACEPTION - ANY METHOD 12/11/2012 [facility], [place] Junior V25.02 CONTRACEPTION - ANY METHOD 12/11/2012 [facility], [place] Junior V25.02 CONTRACEPTION - ANY METHOD 12/11/2012 HEVER BOUCHER APRN V25.02 CONTRACEPTION - ANY METHOD 12/11/2012 MAXINE CLEARY APRN V25.02 CONTRACEPTION - ANY METHOD 12/11/2012 CELSO NASH, TOSHIA Moore V25.02 CONTRACEPTION - ANY METHOD 12/11/2012 TOSHIA HOUSTON RN V25.02 CONTRACEPTION - ANY METHOD 12/11/2012 TOSHIA HOUSTON RN V25.02 CONTRACEPTION - ANY METHOD 12/11/2012 TOSHIA HOUSTON RN V25.02 CONTRACEPTION - ANY METHOD 12/11/2012 TOSHIA HOUSTON RN V25.02 CONTRACEPTION - ANY METHOD 12/11/2012 TOSHIA HOUSTON RN V25.02 CONTRACEPTION - ANY METHOD 12/11/2012 TOSHIA HOUSTON RN V25.02 CONTRACEPTION - ANY METHOD 12/11/2012 TOSHIA HOUSTON RN V25.02 CONTRACEPTION - ANY METHOD 12/11/2012 TOSHIA HOUSTON RN V25.02 CONTRACEPTION - ANY METHOD 12/11/2012 [facility], [place] Jackson V25.02 CONTRACEPTION - ANY METHOD 12/11/2012 ZAN AL V25.02 CONTRACEPTION - ANY METHOD 12/11/2012 ZAN AL V25.02 CONTRACEPTION - ANY METHOD 12/11/2012 TOSHIA HOUSTON RN V25.02 CONTRACEPTION - ANY METHOD 12/18/2012 MAXINE CLEARY APRN 296.32 MO DEPRESSIVE RECURRENT MODERATE 12/18/2012 MARK QUINTANA DO 296.32 MO DEPRESSIVE RECURRENT MODERATE 12/18/2012 [facility], [place] R 296.32 MO DEPRESSIVE RECURRENT MODERATE 12/18/2012 [facility], [place] A 296.32 MO DEPRESSIVE RECURRENT MODERATE 12/18/2012 MAXINE CLEARY APRN 296.32 MO DEPRESSIVE RECURRENT MODERATE 12/18/2012 ABELINO FRIAS APRNYL A 296.32 MO DEPRESSIVE RECURRENT MODERATE 12/18/2012 [facility], [place] A 296.32 MO DEPRESSIVE RECURRENT MODERATE 12/18/2012 296.32 MO DEPRESSIVE RECURRENT MODERATE 12/18/2012 LINDAFAUSTO ACOSTAN, LORI A 296.32 MO DEPRESSIVE RECURRENT MODERATE 12/18/2012 [facility], [place] A 296.32 MO DEPRESSIVE RECURRENT MODERATE 12/18/2012 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, LORI A 296.32 MO DEPRESSIVE RECURRENT MODERATE 12/18/2012 MARK QUINTANA DO K 296.32 MO DEPRESSIVE RECURRENT MODERATE 12/18/2012 [facility], [place] A 296.32 MO DEPRESSIVE RECURRENT MODERATE 12/18/2012 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, LORI A 296.32 MO DEPRESSIVE RECURRENT MODERATE 12/18/2012 [facility], [place] A 296.32 MO DEPRESSIVE RECURRENT MODERATE 12/18/2012 [facility], [place] A 296.32 MO DEPRESSIVE RECURRENT MODERATE 12/18/2012 JANNET DENT MD 296.32 MO DEPRESSIVE RECURRENT MODERATE 12/18/2012 EVIN CARTWRIGHT MAXINE PEDERSON 296.32 MO DEPRESSIVE RECURRENT MODERATE 12/18/2012 JANNET DENT MD 296.32 MO DEPRESSIVE RECURRENT MODERATE 12/18/2012 [facility], [place] A 296.32 MO DEPRESSIVE RECURRENT MODERATE 12/18/2012 TRACIE RIVERA MD 296.32 MO DEPRESSIVE RECURRENT MODERATE 12/18/2012 [facility], [place] A 296.32 MO DEPRESSIVE RECURRENT MODERATE 12/18/2012 [facility], [place] A 296.32 MO DEPRESSIVE RECURRENT MODERATE 12/18/2012 HEVER BOUCHER APRN 296.32 MO DEPRESSIVE RECURRENT MODERATE 12/18/2012 EVIN CARTWRIGHT MAXINE PEDERSON 296.32 MO DEPRESSIVE RECURRENT MODERATE 12/18/2012 TOSHIA HOUSTON RN E 296.32 MO DEPRESSIVE RECURRENT MODERATE 12/18/2012 TOSHIA HOUSTON RN E 296.32 MO DEPRESSIVE RECURRENT MODERATE 12/18/2012 TOSHIA HOUSTON RN E 296.32 MO DEPRESSIVE RECURRENT MODERATE 12/18/2012 TOSHIA HOUSTON RN E 296.32 MO DEPRESSIVE RECURRENT MODERATE 12/18/2012 TOSHIA HOUSTON RN E 296.32 MO DEPRESSIVE RECURRENT MODERATE 12/18/2012 TOSHIA HOUSTON RN E 296.32 MO DEPRESSIVE RECURRENT MODERATE 12/18/2012 TOSHIA HOUSTON RN E 296.32 MO DEPRESSIVE RECURRENT MODERATE 12/18/2012 TOSHIA HOUSTON RN E 296.32 MO DEPRESSIVE RECURRENT MODERATE 12/18/2012 TOSHIA HOUSTON RN E 296.32 MO DEPRESSIVE RECURRENT MODERATE 12/18/2012 [facility], [place] R 296.32 MO DEPRESSIVE RECURRENT MODERATE 12/18/2012 ZAN AL 296.32 MO DEPRESSIVE RECURRENT MODERATE 12/18/2012 ZAN AL M 296.32 MO DEPRESSIVE RECURRENT MODERATE 12/18/2012 TOSHIA HOUSTON RN E 296.32 MO DEPRESSIVE RECURRENT MODERATE 12/19/2012 KATH NIETO APRN Ot 891.0 OPEN WND KNEE/LEG/ANKLE 12/19/2012 KATH NIETO 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 Ot E000.8 OTHER EXTERNAL CAUSE STATUS 12/19/2012 KATH NIETO APRN Ot E849.0 ACCIDENT IN HOME 12/19/2012 KATH NIETO APRN Ot E906.0 DOG BITE 01/05/2013 MARK QUINTANA DO 692.2 CONTACT DERMATITIS AND OTHER ECZEMA DUE TO SOLVENTS 01/05/2013 [facility], [place] R 692.2 CONTACT DERMATITIS AND OTHER ECZEMA DUE TO SOLVENTS 01/05/2013 [facility] 692.2 CONTACT DERMATITIS AND OTHER ECZEMA DUE TO SOLVENTS 01/05/2013 MAXINE CLEARY APRN 692.2 CONTACT DERMATITIS AND OTHER ECZEMA DUE TO SOLVENTS 01/05/2013 CHARLIE FRIAS APRN A 692.2 CONTACT DERMATITIS AND OTHER ECZEMA DUE TO SOLVENTS 01/05/2013 [facility] 692.2 CONTACT DERMATITIS AND OTHER ECZEMA DUE TO SOLVENTS 01/05/2013 692.2 CONTACT DERMATITIS AND OTHER ECZEMA DUE TO SOLVENTS 01/05/2013 LINDA ACOSTAN, LORI A 692.2 CONTACT DERMATITIS AND OTHER ECZEMA DUE TO SOLVENTS 01/05/2013 [facility] 692.2 CONTACT DERMATITIS AND OTHER ECZEMA DUE TO SOLVENTS 01/05/2013 LINDA ACOSTAN, LORI A 692.2 CONTACT DERMATITIS AND OTHER ECZEMA DUE TO SOLVENTS 01/05/2013 MARK QUINTANA DO 692.2 CONTACT DERMATITIS AND OTHER ECZEMA DUE TO SOLVENTS 01/05/2013 [facility], GLEN A 692.2 CONTACT DERMATITIS AND OTHER ECZEMA DUE TO SOLVENTS 01/05/2013 LINDA ACOSTAN, LORI A 692.2 CONTACT DERMATITIS AND OTHER ECZEMA DUE TO SOLVENTS 01/05/2013 [facility] 692.2 CONTACT DERMATITIS AND OTHER ECZEMA DUE TO SOLVENTS 01/05/2013 [facility] 692.2 CONTACT DERMATITIS AND OTHER ECZEMA DUE TO SOLVENTS 01/05/2013 JANNET DENT MD 692.2 CONTACT DERMATITIS AND OTHER ECZEMA DUE TO SOLVENTS 01/05/2013 MAXINE CLEARY APRN 692.2 CONTACT DERMATITIS AND OTHER ECZEMA DUE TO SOLVENTS 01/05/2013 JANNET DENT MD 692.2 CONTACT DERMATITIS AND OTHER ECZEMA DUE TO SOLVENTS 01/05/2013 [facility] 692.2 CONTACT DERMATITIS AND OTHER ECZEMA DUE TO SOLVENTS 01/05/2013 TRACIE RIVERA MD 692.2 CONTACT DERMATITIS AND OTHER ECZEMA DUE TO SOLVENTS 01/05/2013 [facility], [place] A 692.2 CONTACT DERMATITIS AND OTHER ECZEMA DUE TO SOLVENTS 01/05/2013 [facility], [place] A 692.2 CONTACT DERMATITIS AND OTHER ECZEMA DUE TO SOLVENTS 01/05/2013 HEVER BOUCHER APRN 692.2 CONTACT DERMATITIS AND OTHER ECZEMA DUE TO SOLVENTS 01/05/2013 EVIN CARTWRIGHT MAXINE PEDERSON 692.2 CONTACT DERMATITIS AND OTHER ECZEMA DUE TO SOLVENTS 01/05/2013 CELSO NASH, TOSHIA E 692.2 CONTACT DERMATITIS AND OTHER ECZEMA DUE TO SOLVENTS 01/05/2013 CELSO NASH, TOSHIA E 692.2 CONTACT DERMATITIS AND OTHER ECZEMA DUE TO SOLVENTS 01/05/2013 CELSO NASH, TOSHIA E 692.2 CONTACT DERMATITIS AND OTHER ECZEMA DUE TO SOLVENTS 01/05/2013 CELSO NASH, TOSHIA E 692.2 CONTACT DERMATITIS AND OTHER ECZEMA DUE TO SOLVENTS 01/05/2013 TOSHIA HOUSTON RN E 692.2 CONTACT DERMATITIS AND OTHER ECZEMA DUE TO SOLVENTS 01/05/2013 TOSHIA HOUSTON RN E 692.2 CONTACT DERMATITIS AND OTHER ECZEMA DUE TO SOLVENTS 01/05/2013 CELSO NASH, TOSHIA E 692.2 CONTACT DERMATITIS AND OTHER ECZEMA DUE TO SOLVENTS 01/05/2013 CELSO NASH, TOSHIA E 692.2 CONTACT DERMATITIS AND OTHER ECZEMA DUE TO SOLVENTS 01/05/2013 CELSO NASH, TOSHIA E 692.2 CONTACT DERMATITIS AND OTHER ECZEMA DUE TO SOLVENTS 01/05/2013 [facility], [place] Jackson 692.2 CONTACT DERMATITIS AND OTHER ECZEMA DUE TO SOLVENTS 01/05/2013 ZAN AL M 692.2 CONTACT DERMATITIS AND OTHER ECZEMA DUE TO SOLVENTS 01/05/2013 ZAN AL M 692.2 CONTACT DERMATITIS AND OTHER ECZEMA DUE TO SOLVENTS 01/05/2013 CELSO NASH, TOSHIA E 692.2 CONTACT DERMATITIS AND OTHER ECZEMA DUE TO SOLVENTS 03/09/2013 EVIN CARTWRIGHT MAXINE PEDERSON 295.70 P SCHIZO AFFECTIVE 03/09/2013 CHARLIE FRIAS APRN A 295.70 P SCHIZO AFFECTIVE 03/09/2013 [facility], [place] A 295.70 P SCHIZO AFFECTIVE 03/09/2013 295.70 P SCHIZO AFFECTIVE 03/09/2013 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, LORI A 295.70 P SCHIZO AFFECTIVE 03/09/2013 [facility], [place] A 295.70 P SCHIZO AFFECTIVE 03/09/2013 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, LORI A 295.70 P SCHIZO AFFECTIVE 03/09/2013 MARIANO WOODY MARK K 295.70 P SCHIZO AFFECTIVE 03/09/2013 [facility], [place] A 295.70 P SCHIZO AFFECTIVE 03/09/2013 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, LORI A 295.70 P SCHIZO AFFECTIVE 03/09/2013 [facility], [place] A 295.70 P SCHIZO AFFECTIVE 03/09/2013 [facility], [place] A 295.70 P SCHIZO AFFECTIVE 03/09/2013 JANNET DENT MD 295.70 P SCHIZO AFFECTIVE 03/09/2013 MAXINE CLEARY APRN 295.70 P SCHIZO AFFECTIVE 03/09/2013 JANNET DENT MD 295.70 P SCHIZO AFFECTIVE 03/09/2013 [facility], [place] A 295.70 P SCHIZO AFFECTIVE 03/09/2013 TRACIE RIVERA MD 295.70 P SCHIZO AFFECTIVE 03/09/2013 [facility], [place] A 295.70 P SCHIZO AFFECTIVE 03/09/2013 [facility], [place] A 295.70 P SCHIZO AFFECTIVE 03/09/2013 HEVER BOUCHER APRN 295.70 P SCHIZO AFFECTIVE 03/09/2013 MAXINE CLEARY APRN 295.70 P SCHIZO AFFECTIVE 03/09/2013 CELSO RN, TOSHIA E 295.70 P SCHIZO AFFECTIVE 03/09/2013 CELSO RN, TOSHIA E 295.70 P SCHIZO AFFECTIVE 03/09/2013 CELSO RN, TOSHIA E 295.70 P SCHIZO AFFECTIVE 03/09/2013 HOUSTON RN, TOSHIA E 295.70 P SCHIZO AFFECTIVE 03/09/2013 HOUSTON RN, TOSHIA E 295.70 P SCHIZO AFFECTIVE 03/09/2013 CELSO RN, TOSHIA E 295.70 P SCHIZO AFFECTIVE 03/09/2013 HOU[place]ON RN, TOSHIA E 295.70 P SCHIZO AFFECTIVE 03/09/2013 [place]ON RN, TOSHIA E 295.70 P SCHIZO AFFECTIVE 03/09/2013 CELSO RN, TOSHIA E 295.70 P SCHIZO AFFECTIVE 03/09/2013 [facility], [place] Jackson 295.70 P SCHIZO AFFECTIVE 03/09/2013 ZAN AL M 295.70 P SCHIZO AFFECTIVE 03/09/2013 ZAN AL M 295.70 P SCHIZO AFFECTIVE 03/09/2013 CELSO NASH, TOSHIA E 295.70 P SCHIZO AFFECTIVE 03/20/2013 CHARLIE FRIAS APRN A 461.9 SINUSITIS ACUTE 03/20/2013 [facility], [place] A 461.9 SINUSITIS ACUTE 03/20/2013 461.9 SINUSITIS ACUTE 03/20/2013 LINDA CARTWRIGHT, LORI A 461.9 SINUSITIS ACUTE 03/20/2013 [facility], [place] A 461.9 SINUSITIS ACUTE 03/20/2013 LINDA CARTWRIGHT, LORI A 461.9 SINUSITIS ACUTE 03/20/2013 MARK QUINTANA DO 461.9 SINUSITIS ACUTE 03/20/2013 [facility], [place] A 461.9 SINUSITIS ACUTE 03/20/2013 LORI MCKEON APRN A 461.9 SINUSITIS ACUTE 03/20/2013 [facility], [place] A 461.9 SINUSITIS ACUTE 03/20/2013 [facility], [place] A 461.9 SINUSITIS ACUTE 03/20/2013 JANNET DENT MD 461.9 SINUSITIS ACUTE 03/20/2013 MAXINE CLEARY APRN 461.9 SINUSITIS ACUTE 03/20/2013 JANNET DENT MD 461.9 SINUSITIS ACUTE 03/20/2013 [facility], [place] A 461.9 SINUSITIS ACUTE 03/20/2013 TRACIE RIVERA MD 461.9 SINUSITIS ACUTE 03/20/2013 [facility], [place] A 461.9 SINUSITIS ACUTE 03/20/2013 [facility], [place] A 461.9 SINUSITIS ACUTE 03/20/2013 HEVER BOUCHER APRN 461.9 SINUSITIS ACUTE 03/20/2013 MAXINE CLEARY APRN 461.9 SINUSITIS ACUTE 03/20/2013 CELSO NASH, TOSHIA Moore 461.9 SINUSITIS ACUTE 03/20/2013 CELSO NASH, TOSHIA Moore 461.9 SINUSITIS ACUTE 03/20/2013 CELSO NASH, TOSHIA Moore 461.9 SINUSITIS ACUTE 03/20/2013 [place] RN, TOSHIA E 461.9 SINUSITIS ACUTE 03/20/2013 CELSO RN, TOSHIA E 461.9 SINUSITIS ACUTE 03/20/2013 CELSO RN, TOSHIA E 461.9 SINUSITIS ACUTE 03/20/2013 CELSO RN, TOSHIA E 461.9 SINUSITIS ACUTE 03/20/2013 CELSO RN, TOSHIA E 461.9 SINUSITIS ACUTE 03/20/2013 CELSO RN, TOSHIA E 461.9 SINUSITIS ACUTE 03/20/2013 [facility], [place]YN R 461.9 SINUSITIS ACUTE 03/20/2013 KINGS BELT SPLICER, ZAN M 461.9 SINUSITIS ACUTE 03/20/2013 KINGS BELT SPLICER, ZAN M 461.9 SINUSITIS ACUTE 03/20/2013 CELSO RN, TOSHIA Moore 461.9 SINUSITIS ACUTE 04/03/2013 [facility], [place] A 314.01 ADHD COMBINED 04/03/2013 LINDA CARTWRIGHT, LORI A 314.01 ADHD COMBINED 04/03/2013 MARK QUINTANA DO 314.01 ADHD COMBINED 04/03/2013 [facility], GLEN A 314.01 ADHD COMBINED 04/03/2013 LORI MCKEON APRN A 314.01 ADHD COMBINED 04/03/2013 [facility], GLEN A 314.01 ADHD COMBINED 04/03/2013 [facility], GLEN A 314.01 ADHD COMBINED 04/03/2013 FILIPE LAGUNAS, JANNET 314.01 ADHD COMBINED 04/03/2013 MAXINE CLEARY APRN 314.01 ADHD COMBINED 04/03/2013 FILIPE LAGUNAS, JANNET 314.01 ADHD COMBINED 04/03/2013 [facility], GLEN A 314.01 ADHD COMBINED 04/03/2013 TRACIE RIVERA MD 314.01 ADHD COMBINED 04/03/2013 [facility], GLEN A 314.01 ADHD COMBINED 04/03/2013 [facility], GLEN A 314.01 ADHD COMBINED 04/03/2013 HEVER BOUCHER APRN 314.01 ADHD COMBINED 04/03/2013 MAXINE CLEARY APRN 314.01 ADHD COMBINED 04/03/2013 CELSO NASH, TOSHIA E 314.01 ADHD COMBINED 04/03/2013 CELSO NASH, TOSHIA E 314.01 ADHD COMBINED 04/03/2013 CELSO NASH, TOSHIA E 314.01 ADHD COMBINED 04/03/2013 CELSO NASH, TOSHIA E 314.01 ADHD COMBINED 04/03/2013 CELSO RN, TOSHIA E 314.01 ADHD COMBINED 04/03/2013 CELSO RN, TOSHIA E 314.01 ADHD COMBINED 04/03/2013 CELSO RN, TOSHIA E 314.01 ADHD COMBINED 04/03/2013 CELSO RN, TOSHIA E 314.01 ADHD COMBINED 04/03/2013 CELSO RN, TOSHIA E 314.01 ADHD COMBINED 04/03/2013 [facility], GWENDOLYN R 314.01 ADHD COMBINED 04/03/2013 [facility] SPLICER, ZAN M 314.01 ADHD COMBINED 04/03/2013 [facility] SPLICER, ZAN M 314.01 ADHD COMBINED 04/03/2013 CELSO NASH, TOSHIA E 314.01 ADHD COMBINED 04/06/2013 LINDA CARTWRIGHT, LORI A V74.5 STD SCREEN 04/06/2013 [facility], GLEN A V74.5 STD SCREEN 04/06/2013 LINDA CARTWRIGHT LORI A V74.5 STD SCREEN 04/06/2013 MARK QUINTANA DO V74.5 STD SCREEN 04/06/2013 [facility], GLEN A V74.5 STD SCREEN 04/06/2013 LINDA CARTWRIGHT LORI A V74.5 STD SCREEN 04/06/2013 [facility], GLEN A V74.5 STD SCREEN 04/06/2013 [facility], GLEN A V74.5 STD SCREEN 04/06/2013 FILIPE LAGUNAS, JANNET V74.5 STD SCREEN 04/06/2013 EVIN CARTWRIGHT, MAXINE PEDERSON V74.5 STD SCREEN 04/06/2013 FILIPE LAGUNAS, JANNET V74.5 STD SCREEN 04/06/2013 [facility], GLEN A V74.5 STD SCREEN 04/06/2013 TRACIE RIVERA MD V74.5 STD SCREEN 04/06/2013 [facility], GLEN A V74.5 STD SCREEN 04/06/2013 [facility], GLEN A V74.5 STD SCREEN 04/06/2013 HEVER BOUCHER APRN V74.5 STD SCREEN 04/06/2013 EVIN CARTWRIGHT, MAXINE PEDERSON V74.5 STD SCREEN 04/06/2013 CELSO NASH, TOSHIA Moore V74.5 STD SCREEN 04/06/2013 CELSO NASH, TOSHIA E V74.5 STD SCREEN 04/06/2013 CELSO NASH, TOSHIA E V74.5 STD SCREEN 04/06/2013 CELSO NASH, TOSHIA E V74.5 STD SCREEN 04/06/2013 CELSO RN, TOSHIA E V74.5 STD SCREEN 04/06/2013 CELSO RN, TOSHIA E V74.5 STD SCREEN 04/06/2013 CELSO NASH, TOSHIA E V74.5 STD SCREEN 04/06/2013 CELSO NASH, TOSHIA E V74.5 STD SCREEN 04/06/2013 CELSO NASH, TOSHIA E V74.5 STD SCREEN 04/06/2013 [facility], GWENDOLYN R V74.5 STD SCREEN 04/06/2013 [facility], ZAN M V74.5 STD SCREEN 04/06/2013 [facility], ZAN M V74.5 STD SCREEN 04/06/2013 CELSO NASH, TOSHIA E V74.5 STD SCREEN 04/27/2013 LORI MCKEON APRN 623.5 LEUKORRHEA NOT SPECIFIED INFECTIVE 04/27/2013 [facility], GLEN Junior 623.5 LEUKORRHEA NOT SPECIFIED INFECTIVE 04/27/2013 [facility], GLEN Junior 623.5 LEUKORRHEA NOT SPECIFIED INFECTIVE 04/27/2013 JANNET DENT MD 623.5 LEUKORRHEA NOT SPECIFIED INFECTIVE 04/27/2013 MAXINE CLEARY APRN 623.5 LEUKORRHEA NOT SPECIFIED INFECTIVE 04/27/2013 JANNET DENT MD 623.5 LEUKORRHEA NOT SPECIFIED INFECTIVE 04/27/2013 [facility], GLEN Junior 623.5 LEUKORRHEA NOT SPECIFIED INFECTIVE 04/27/2013 TRACIE RIVERA MD 623.5 LEUKORRHEA NOT SPECIFIED INFECTIVE 04/27/2013 [facility], GLEN Junior 623.5 LEUKORRHEA NOT SPECIFIED INFECTIVE 04/27/2013 [facility], GLEN Junior 623.5 LEUKORRHEA NOT SPECIFIED INFECTIVE 04/27/2013 HEVER BOUCHER APRN 623.5 LEUKORRHEA NOT SPECIFIED INFECTIVE 04/27/2013 MXAINE CLEARY APRN 623.5 LEUKORRHEA NOT SPECIFIED INFECTIVE 04/27/2013 TOSHIA HOUSTON RN 623.5 LEUKORRHEA NOT SPECIFIED INFECTIVE 04/27/2013 TOSHIA HOUSTON RN 623.5 LEUKORRHEA NOT SPECIFIED INFECTIVE 04/27/2013 TOSHIA HOUSTON RN E 623.5 LEUKORRHEA NOT SPECIFIED INFECTIVE 04/27/2013 TOSHIA HOUSTON RN 623.5 LEUKORRHEA NOT SPECIFIED INFECTIVE 04/27/2013 TOSHIA HOUSTON RN 623.5 LEUKORRHEA NOT SPECIFIED INFECTIVE 04/27/2013 TOSHIA HOUSTON RN 623.5 LEUKORRHEA NOT SPECIFIED INFECTIVE 04/27/2013 TOSHIA HOUSTON RN 623.5 LEUKORRHEA NOT SPECIFIED INFECTIVE 04/27/2013 TOSHIA HOUSTON RN 623.5 LEUKORRHEA NOT SPECIFIED INFECTIVE 04/27/2013 TOSHIA HOUSTON RN 623.5 LEUKORRHEA NOT SPECIFIED INFECTIVE 04/27/2013 [facility], GWENDOLYN R 623.5 LEUKORRHEA NOT SPECIFIED INFECTIVE 04/27/2013 ZAN AL 623.5 LEUKORRHEA NOT SPECIFIED INFECTIVE 04/27/2013 ZAN AL 623.5 LEUKORRHEA NOT SPECIFIED INFECTIVE 04/27/2013 TOSHIA HOUSTON RN 623.5 LEUKORRHEA NOT SPECIFIED INFECTIVE 06/11/2013 JANNET DENT MD 784.1 THROAT PAIN 06/11/2013 MAXINE CLEARY APRN 784.1 THROAT PAIN 06/11/2013 JANNET DENT MD 784.1 THROAT PAIN 06/11/2013 [facility], GLEN A 784.1 THROAT PAIN 06/11/2013 TRACIE RIVERA MD 784.1 THROAT PAIN 06/11/2013 [facility], GLEN A 300.02 AN GEN ANXIETY 06/11/2013 [facility], GL[place] A 784.1 THROAT PAIN 06/11/2013 [facility], GLEN A 300.02 AN GEN ANXIETY 06/11/2013 [facility], GL[place] A 784.1 THROAT PAIN 06/11/2013 CITLALYHEVER SR APRN 300.02 AN GEN ANXIETY 06/11/2013 HEVER BOUCHER APRN 784.1 THROAT PAIN 06/11/2013 MAXINE CLAERY APRN 300.02 AN GEN ANXIETY 06/11/2013 MAXINE CLEARY APRN 784.1 THROAT PAIN 06/11/2013 TOSHIA HOUSTON RN 300.02 AN GEN ANXIETY 06/11/2013 HOUSTON RN, TOSHIA E 784.1 THROAT PAIN 06/11/2013 CELSO NASH, TOSHIA E 300.02 AN GEN ANXIETY 06/11/2013 CELSO NASH, TOSHIA E 784.1 THROAT PAIN 06/11/2013 CELSO NASH, TOSHIA E 300.02 AN GEN ANXIETY 06/11/2013 CELSO RN, TOSHIA E 784.1 THROAT PAIN 06/11/2013 CELSO NASH, TOSHIA E 300.02 AN GEN ANXIETY 06/11/2013 CELSO NASH, TOSHIA E 784.1 THROAT PAIN 06/11/2013 CELSO NASH, TOSHIA E 300.02 AN GEN ANXIETY 06/11/2013 CELSO NASH, TOSHIA E 784.1 THROAT PAIN 06/11/2013 CELSO NASH, TOSHIA E 300.02 AN GEN ANXIETY 06/11/2013 CELSO NASH, TOSHIA E 784.1 THROAT PAIN 06/11/2013 CELSO NASH, TOSHIA E 300.02 AN GEN ANXIETY 06/11/2013 CELSO NASH, TOSHIA E 784.1 THROAT PAIN 06/11/2013 CELSO NASH, TOSHIA E 300.02 AN GEN ANXIETY 06/11/2013 CELSO NASH, TOSHIA E 784.1 THROAT PAIN 06/11/2013 CELSO NASH, TOSHIA E 300.02 AN GEN ANXIETY 06/11/2013 CELSO NASH, TOSHIA E 784.1 THROAT PAIN 06/11/2013 [facility], GWENDOLYN R 300.02 AN GEN ANXIETY 06/11/2013 [facility], [place] R 784.1 THROAT PAIN 06/11/2013 ZAN AL M 300.02 AN GEN ANXIETY 06/11/2013 ZAN AL M 784.1 THROAT PAIN 06/11/2013 ZAN AL M 300.02 AN GEN ANXIETY 06/11/2013 ZAN AL M 784.1 THROAT PAIN 06/11/2013 CELSO NASH, TOSHIA E 300.02 AN GEN ANXIETY 06/11/2013 CELSO NASH, TOSHIA E 784.1 THROAT PAIN 07/07/2013 TRACIE RIVERA MD 300.02 AN GEN ANXIETY 07/07/[facility] AN GEN ANXIETY 07/07/2013 [facility], GLEN A 300.02 AN GEN ANXIETY 07/07/2013 HEVER BOUCHER APRN 300.02 AN GEN ANXIETY 07/07/2013 MAXINE CLEARY APRN 300.02 AN GEN ANXIETY 07/07/2013 CELSO NASH, TOSHIA E 300.02 AN GEN ANXIETY 07/07/2013 TOSHIA HOUSTON RN 300.02 AN GEN ANXIETY 07/07/2013 CELSO NASH, TOSHIA E 300.02 AN GEN ANXIETY 07/07/2013 CELSO NASH, TOSHIA Moore 300.02 AN GEN ANXIETY 07/07/2013 TOSHIA HOUSTON RN E 300.02 AN GEN ANXIETY 07/07/2013 TOSHIA HOUSTON RN 300.02 AN GEN ANXIETY 07/07/2013 TOSHIA HOUSTON RN E 300.02 AN GEN ANXIETY 07/07/2013 TOSHIA HOUSTON RN 300.02 AN GEN ANXIETY 07/07/2013 TOSHIA HOUSTON RN 300.02 AN GEN ANXIETY 07/07/2013 [facility], GWEND[place]YN Jackson 300.02 AN GEN ANXIETY 07/07/2013 ZAN AL 300.02 AN GEN ANXIETY 07/07/2013 ZAN AL 300.02 AN GEN ANXIETY 07/07/2013 TOSHIA HOUSTON RN 300.02 AN GEN ANXIETY 07/09/2013 KATH NIETO 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 Ot 845.00 SPRAIN OF ANKLE NOS 07/09/2013 KATH NIETO 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 Ot 959.7 LOWER LEG INJURY NOS 07/09/2013 KATH NIETO 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 Ot E000.8 OTHER EXTERNAL CAUSE STATUS 07/09/2013 KATH NIETO 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 Ot E849.0 ACCIDENT IN HOME 07/09/2013 KATH NIETO 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 Ot E880.1 FALL ON OR FROM SIDEWALK CURB 08/31/2013 SRINIVASA GARCIA DO Ot 916.4 INSECT BITE HIP LEG 08/31/2013 SRINIVASA GARCIA DO Ot E906.4 NONVENOM ARTHROPOD BITE 12/09/2013 TOSHIA HOUSTON RN 296.80 BIPOLAR DISORDER UNSPECIFIED 12/09/2013 TOSHIA HOUSTON RN 296.80 BIPOLAR DISORDER UNSPECIFIED 12/09/2013 TOSHIA HOUSTON RN 296.80 BIPOLAR DISORDER UNSPECIFIED 12/09/2013 TOSHIA HOUSTON RN 296.80 BIPOLAR DISORDER UNSPECIFIED 12/09/2013 TOSHIA HOUSTON RN E 296.80 BIPOLAR DISORDER UNSPECIFIED 12/09/2013 [facility], [place] Jackson 296.80 BIPOLAR DISORDER UNSPECIFIED 12/09/2013 ZAN AL M 296.80 BIPOLAR DISORDER UNSPECIFIED 12/09/2013 ZAN AL M 296.80 BIPOLAR DISORDER UNSPECIFIED 12/09/2013 CELSO NASH, TOSHIA Moore 296.80 BIPOLAR DISORDER UNSPECIFIED 12/27/2013 SORAYA LAGUNAS, LINO Junior Ot 599.0 URIN TRACT INFECTION NOS 12/27/2013 SORAYA LAGUNAS, LINO Junior Ot 780.60 FEVER, UNSPECIFIED 04/15/2014 KATH NIETO APRN Ot 781.0 ABN INVOLUN MOVEMENT NEC 04/15/2014 KATH NIETO 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 Ot 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 06/06/2014 KATH NITEO 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 Ot 462 ACUTE PHARYNGITIS 09/24/2014 KATH NIETO APRN Ot 625.3 DYSMENORRHEA 09/24/2014 KATH NIETO APRN Ot 789.09 ABDOMINAL PAIN, OTHER SPECIFIED SITE 11/15/2014 SRINIVASA GARCIA DO Ot 842.00 SPRAIN OF WRIST NOS 11/15/2014 SRINIVASA GARCIA DO Ot 959.3 ELB/FOREARM/WRST INJ NOS 11/15/2014 SRINIVASA GARCIA DO Ot E000.8 OTHER EXTERNAL CAUSE STATUS 11/15/2014 SRINIVASA GARCIA DO Ot E006.0 ACTIVITIES INVOLVING ROLLER SKATING (INL 11/15/2014 SRINIVASA GARCIA DO Ot E885.1 ACCIDENT DUE TO ROLLERSKATE 11/16/2014 KATH NIETO APRN Ot 599.0 URIN TRACT INFECTION NOS 11/16/2014 KATH NIETO APRN Ot 787.01 NAUSEA WITH VOMITING 11/18/2014 JESSICA BRANHAM MD Ot 787.01 NAUSEA WITH VOMITING 11/18/2014 JESSICA BRANHAM MD Ot 787.03 VOMITING ALONE 07/18/2015 GUICHO MCNEILL MD Ot F17.210 NICOTINE DEPENDENCE, CIGARETTES, UNCOMPL 07/18/2015 GUICHO MCNEILL MD Ot F33.2 MAJOR DEPRESSV DISORDER, RECURRENT SEVER 07/18/2015 GUICHO MCNEILL MD Ot T43.221A POISN BY SELECTIVE SEROTONIN REUPTAKE IN 07/18/2015 DIAMOND AVINA Ot M23.232 DERANG OF MEDIAL MENISCUS DUE TO OLD TEA 07/29/2015 DIAMOND AVINA TECHNICAL SUPPORT 1 SOFTWARE ENGINEER Ot M23.232 DERANG OF MEDIAL MENISCUS DUE TO OLD TEA 10/27/2015 KATH NIETO 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 Ot F41.9 ANXIETY DISORDER, UNSPECIFIED 10/28/2015 KATH NIETO 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 Ot F41.9 ANXIETY DISORDER, UNSPECIFIED 11/09/2015 ROCHELLE DO, MITCH K Ot F12.10 CANNABIS ABUSE, UNCOMPLICATED 11/09/2015 ROCHELLE DO, MITCH K Ot F17.210 NICOTINE DEPENDENCE, CIGARETTES, UNCOMPL 11/09/2015 ROCHELLE DO, MITCH K Ot N39.0 URINARY TRACT INFECTION, SITE NOT SPECIF 11/09/2015 ROCHELLE DO, MITCH K Ot R10.11 RIGHT UPPER QUADRANT PAIN 11/10/2015 ROCHELLE DO, MITCH K Ot F12.10 CANNABIS ABUSE, UNCOMPLICATED 11/10/2015 ROCHELLE DO, MITCH K Ot F17.210 NICOTINE DEPENDENCE, CIGARETTES, UNCOMPL 11/10/2015 ROCHELLE DO, MITCH K Ot N39.0 URINARY TRACT INFECTION, SITE NOT SPECIF 11/10/2015 ROCHELLE DO, MITCH K Ot R10.11 RIGHT UPPER QUADRANT PAIN 11/11/2015 ROCHELLE DO, MITCH K Ot F12.10 CANNABIS ABUSE, UNCOMPLICATED 11/11/2015 ROCHELLE DO, MITCH K Ot F17.210 NICOTINE DEPENDENCE, CIGARETTES, UNCOMPL 11/11/2015 ROCHELLE DO, MITCH K Ot N39.0 URINARY TRACT INFECTION, SITE NOT SPECIF 11/11/2015 ROCHELLE DO, MITCH K Ot R10.11 RIGHT UPPER QUADRANT PAIN 12/28/2015 ROCHELLE DO, MITCH K Ot F12.10 CANNABIS ABUSE, UNCOMPLICATED 12/28/2015 ROCHELLE DO, MITCH K Ot F17.210 NICOTINE DEPENDENCE, CIGARETTES, UNCOMPL 12/28/2015 ROCHELLE DO, MITCH K Ot N39.0 URINARY TRACT INFECTION, SITE NOT SPECIF 12/28/2015 ROCHELLE DO, MITCH K Ot R10.11 RIGHT UPPER QUADRANT PAIN 05/11/2016 Ot 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 05/11/2016 DIAMOND AVINA TECHNICAL SUPPORT 1 SOFTWARE ENGINEER Ot M23.232 DERANG OF MEDIAL MENISCUS DUE TO OLD TEA 05/11/2016 KATH NIETO 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 Ot R23.8 OTHER SKIN CHANGES 05/13/2016 KATH NIETO APRN Ot R23.8 OTHER SKIN CHANGES Procedures Code Description Performed By Performed On Podiatry [place]aly Branch 02/13/[address] SINUS W/O CONTRAST 02/19/2012 ISSAC PARISI 02/19/2012 72122 PSYCH IND W/MED CK 20 04/17/2012 11998 PSYCH DIAGNOSTIC EVALUATION 06/11/2012 89760 PSYTX PT&/FAMILY 45 MINUTES 08/01/2012 84127 PSYTX PT&/FAMILY 30 MINUTES 08/29/2012 55953 PSYTX PT&/FAMILY 45 MINUTES 01/27/2013 56229 URINE DRUG SCREEN (IN-HOUSE ) 02/05/2013 14087 PSYCH DIAGNOSTIC EVALUATION 02/11/2013 11832 PSYTX PT&/FAMILY 45 MINUTES 03/27/2013 18813 TEST, URINE (IN- HOUSE) 04/06/2013 35236 GC/CHLAM URINE ([facility]) 04/08/2013 74900 PSYTX PT&/FAMILY 30 MINUTES 04/10/2013 81444 PSYTX PT&/FAMILY 45 MINUTES 04/27/2013 35612 TRICHOMONAS (IN-HOUSE) 04/27/2013 34240 CULTURE UROGENITAL 04/29/2013 72237 PSYTX PT&/FAMILY 30 MINUTES 05/14/2013 73409 PSYTX PT&/FAMILY 30 MINUTES 06/09/2013 70975 XRAY SOFT TISSUE NECK 1 OR MORE VIEWS 06/11/[address] NECK, SOFT TISSUE NECK W/ DYE 06/11/2013 ISSAC VELAZQUEZ 06/11/2013 14372 PSYTX PT&/FAMILY 30 MINUTES 07/06/2013 95495 PSYTX CRISIS INITIAL 60 MIN 07/07/2013 18384 PSYTX CRISIS EA ADDL 30 MIN 07/07/2013 36546 PSYTX PT&/FAMILY 30 MINUTES 07/16/2013 S0280 HEALTH PROMOTION 11/11/2013 S0280 HEALTH PROMOTION 11/12/2013 S0280 HEALTH PROMOTION 11/12/2013 S0281 CARE COORDINATION 11/18/2013 S0280 HEALTH PROMOTION 11/30/2013 S0280 COMPREHENSIVE CARE MANAGEMENT 12/24/2013 S0281 CARE COORDINATION 12/24/2013 S0281 CARE COORDINATION 12/24/2013 68986 URINE DRUG SCREEN (IN-HOUSE ) 12/25/2013 S0280 PATIENT AND FAMILY SUPPORT 12/30/2013 10300 PSYCH DIAGNOSTIC EVALUATION 12/30/2013 S0281 CARE COORDINATION 01/01/2014 S0280 PATIENT AND FAMILY SUPPORT 01/01/2014 S0280 HEALTH PROMOTION 01/27/2014 86746 PSYTX PT&/FAMILY 45 MINUTES 03/03/2014 S0280 HEALTH PROMOTION 03/03/2014 S0280 HEALTH PROMOTION 05/31/2014 Results Test Result Range Urine Culture, Routine - 11/08/15 17:38 Urine Culture, Routine Note Urine drug screening test - 11/09/15 19:37 Urine phencyclidine detection by screening method NEGATIVE NEGATIVE Urine benzodiazepines detection by screening method POSITIVE NEGATIVE Urine cocaine detection NEGATIVE NEGATIVE Urine amphetamines detection by screening method NEGATIVE NEGATIVE Urine methamphetamine detection by screening method NEGATIVE NEGATIVE Urine cannabinoids detection by screening method POSITIVE NEGATIVE Urine opiates detection by screening method NEGATIVE NEGATIVE Urine barbiturates detection NEGATIVE NEGATIVE Screening urine tricyclic antidepressants detection NEGATIVE NEGATIVE Urine methadone detection by screening method NEGATIVE NEGATIVE Urine oxycodone detection NEGATIVE NEGATIVE Urine propoxyphene detection NEGATIVE NEGATIVE Urine buprenophrine screen NEGATIVE NEGATIVE Complete urinalysis with reflex to culture - 11/09/15 19:37 Urine color determination YELLOW NRG Urine clarity determination SLIGHTLY CLOUDY NRG Urine pH measurement by test strip 6 5-9 Specific gravity of urine by test strip 1.020 1.016- 1.022 Urine protein assay by test strip, semi-quantitative 2+ NEGATIVE Urine glucose detection by automated test strip NEGATIVE NEGATIVE Erythrocytes detection in urine sediment by light microscopy 1+ NEGATIVE Urine ketones detection by automated test strip NEGATIVE NEGATIVE Urine nitrite detection by test strip NEGATIVE NEGATIVE Urine total bilirubin detection by test strip NEGATIVE NEGATIVE Urine urobilinogen measurement by automated test strip (mass/volume) NORMAL NORMAL Urine leukocyte esterase detection by dipstick 3+ NEGATIVE Automated urine sediment erythrocyte count by microscopy (number/high power field) [HPF] NRG Automated urine sediment leukocyte count by microscopy (number/high power field ) TNTC NRG Bacteria detection in urine sediment by light microscopy MODERATE NRG Squamous epithelial cells detection in urine sediment by light microscopy 10-25 NRG Crystals detection in urine sediment by light microscopy NONE NRG Casts detection in urine sediment by light microscopy NONE NRG Mucus detection in urine sediment by light microscopy LARGE NRG Complete urinalysis with reflex to culture YES NRG Bacterial urine culture - 11/09/15 19:37 URINE CULTURE RESULTS >100,000/ML NRG CBC With Differential/Platelet - 01/31/16 17:45 WBC 7.9 x10E3/uL 3.4-10.8 RBC 4.35 x10E6/uL 3.77-5.28 Hemoglobin 12.5 g/dL 11.1-15.9 Hematocrit 38.6 % 34.0-46.6 MCV 89 fL 79-97 MCH 28.7 pg 26.6-33.0 MCHC 32.4 g/dL 31.5-35.7 RDW 15.2 % 12.3-15.4 Platelets 311 x10E3/uL 150-379 Neutrophils 54 % Lymphs 31 % Monocytes 8 % Eos 7 % Basos 0 % Neutrophils (Absolute) 4.3 x10E3/uL 1.4-7.0 Lymphs (Absolute) 2.4 x10E3/uL 0.7-3.1 Monocytes(Absolute) 0.6 x10E3/uL 0.1-0.9 Eos (Absolute) 0.5 x10E3/uL 0.0-0.4 Baso (Absolute) 0.0 x10E3/uL 0.0-0.2 Immature Granulocytes 0 % Immature Grans (Abs) 0.0 x10E3/uL 0.0-0.1 Vitamin D, 25-Hydroxy - 01/31/16 17:45 Vitamin D, 25-Hydroxy 42.6 ng/mL 30.0-100.0 hCG,Beta Subunit,Qual,Serum - 01/31/16 17:45 hCG,Beta Subunit,Qual,Serum Negative mIU/mL Negative <6 Prolactin - 03/02/16 14:52 Prolactin 78.9 ng/mL 4.8-23.3 Encounters ACCT No. Visit Date/Time Discharge Status Pt. Type Provider Facility Loc./Unit Complaint [id number] 05/25/2014 14:30:00 05/25/2014 23:59:59 CLS Outpatient TOSHIA HOUSTON RN [id number] 03/03/2014 16:21:00 03/03/2014 23:59:59 CLS Outpatient ZAN [place] [id number] 03/03/2014 16:21:00 03/03/2014 23:59:59 CLS Outpatient ZAN AL [id number] 03/02/2014 15:51:00 03/02/2014 23:59:59 CLS Outpatient SELWYN ELLIOTGWENDOLYN [id number] 02/03/2014 13:15:00 02/03/2014 23:59:59 CLS Outpatient TOSHIA HOUSTON RN [id number] 01/19/2014 15:15:00 01/19/2014 23:59:59 CLS Outpatient TOSHIA HOUSTON RN [id number] 12/30/2013 08:30:00 12/30/2013 23:59:59 CLS Outpatient TOSHIA HOUSTON RN [id number] 12/09/2013 16:01:00 12/09/2013 23:59:59 CLS Outpatient TOSHIA HOUSTON RN [id number] 11/23/2013 16:00:00 11/23/2013 23:59:59 CLS Outpatient TOSHIA HOUSTON RN [id number] 11/18/2013 00:00:00 11/18/2013 23:59:59 CLS Outpatient TOSHIA HOUSTON RN [id number] 11/03/2013 16:00:00 11/03/2013 23:59:59 CLS Outpatient TOSHIA HOUSTON RN [id number] 11/03/2013 00:00:00 11/03/2013 23:59:59 CLS Outpatient TOSHIA HOUSTON RN [id number] 10/12/2013 15:40:00 10/12/2013 23:59:59 CLS Outpatient EVIN CARTWRIGHT MAXINE GUZMANH [id number] 10/12/2013 14:00:00 10/12/2013 23:59:59 CLS Outpatient TOSHIA HOUSTON RN [id number] 07/16/2013 14:25:00 07/16/2013 23:59:59 CLS Outpatient GLEN TORRES [id number] 07/07/2013 11:23:00 07/07/2013 23:59:59 CLS Outpatient TRACIE RIVERA MD [id number] 07/07/2013 11:23:00 07/07/2013 23:59:59 CLS Outpatient HEVER BOUCHER APRN [id number] 07/07/2013 08:55:00 07/07/2013 23:59:59 CLS Outpatient GLEN TORRES [id number] 07/06/2013 13:50:00 07/06/2013 23:59:59 CLS Outpatient GLEN TORRES [id number] 06/11/2013 15:58:00 06/11/2013 23:59:59 CLS Outpatient MAXINE CLEARY APRN [id number] 06/11/2013 07:53:00 06/11/2013 23:59:59 CLS Outpatient JANNET DENT MD [id number] 06/11/2013 07:53:00 06/11/2013 23:59:59 CLS Outpatient JANNET DENT MD [id number] 06/09/2013 13:15:00 06/09/2013 23:59:59 CLS Outpatient NATALI TORRESKATTY Junior [id number] 05/14/2013 13:40:00 05/14/2013 23:59:59 CLS Outpatient DEBBIE ZARATE GLEN Junior [id number] 04/27/2013 17:46:00 04/27/2013 23:59:59 CLS Outpatient LINDA CARTWRIGHT LORI Junior [id number] 04/27/2013 13:50:00 04/27/2013 23:59:59 CLS Outpatient DEBBIE ZARATE GLEN Junior [id number] 04/24/2013 15:37:00 04/24/2013 23:59:59 CLS Outpatient MARK QUINTANA DO Jenna [id number] 04/10/2013 13:40:00 04/10/2013 23:59:59 CLS Outpatient NATALI TORRESKATTY Junior [id number] 04/06/2013 17:57:00 04/06/2013 23:59:59 CLS Outpatient WOLF MCKEON APRNCOLLIN Junior [id number] 04/06/2013 17:57:00 04/06/2013 23:59:59 CLS Outpatient LINDA CARTWRIGHT LORI Junior [id number] 03/27/2013 09:30:00 03/27/2013 23:59:59 CLS Outpatient DEBBIE ZARATE GLEN Junior [id number] 03/20/2013 10:12:00 03/20/2013 23:59:59 CLS Outpatient CORALOscar CARTWRIGHTCHARLIE [id number] 03/09/2013 15:24:00 03/09/2013 23:59:59 CLS Outpatient MAXINE CLEARY APRN [id number] 02/09/2013 16:11:00 02/09/2013 23:59:59 CLS Outpatient DEBBIE ZARATE GLEN Junior [id number] 01/23/2013 15:54:00 01/23/2013 23:59:59 CLS Outpatient GWENDOLYN DUVALL [id number] 01/05/2013 17:41:00 01/05/2013 23:59:59 CLS Outpatient MARK QUINTANA DO [id number] 12/18/2012 16:03:00 12/18/2012 23:59:59 CLS Outpatient MAXINE CLEARY APRN [id number] 12/11/2012 17:56:00 12/11/2012 23:59:59 CLS Outpatient WOLF MCKEON APRNCOLLIN Junior [id number] 10/16/2012 14:58:00 10/16/2012 23:59:59 CLS Outpatient MAXINE CLEARY APRN [id number] 05/21/2012 16:06:00 05/21/2012 23:59:59 CLS Outpatient [id number] 03/14/2012 13:35:00 03/14/2012 23:59:59 CLS Outpatient MAXINE CLEARY APRN [id number] 02/19/2012 10:34:00 02/19/2012 23:59:59 CLS Outpatient JANNET DENT MD [id number] 02/13/2012 15:30:00 02/13/2012 23:59:59 CLS Outpatient [id number] 01/29/2012 10:06:00 01/29/2012 23:59:59 CLS Outpatient [id number] 04/03/2013 15:46:00 Document Registration [id number] 10/09/2012 12:56:00 Document Registration [id number] 08/28/2012 09:12:00 Document Registration [id number] 08/19/2012 12:55:00 Document Registration [id number] 07/30/2012 07:58:00 Document Registration [id number] 06/26/2012 09:35:00 Document Registration [id number] 06/11/2012 08:02:00 Document Registration [id number] 11/10/2015 05:05:00 Document Registration [id number] 03/03/2016 08:05:00 Document Registration [id number] 02/01/2016 10:05:00 Document Registration [id number] 05/11/2016 19:49:00 05/11/2016 21:27:00 DIS Emergency 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 [facility] ER SORE ON BUTTOCKS [id number] 11/09/2015 18:59:00 11/09/2015 20:15:00 DIS Emergency MITCH BYRD DO [facility] ER ABD PAIN [id number] 10/27/2015 15:09:00 10/27/2015 16:15:00 DIS Emergency KATH NIETO APRN [facility] ER PSYCH [id number] 07/17/2015 21:51:00 07/18/2015 11:40:00 DIS Inpatient GUICHO MCNEILL MD [facility] ICU OVERDOSE [id number] 07/15/2015 18:32:00 07/15/2015 23:59:59 CLS Outpatient DIAMOND AVINA [facility] RAD DERANGEMENT OF MEDIAL MENISCUS DUE TO OLD TEAR [id number] 11/18/2014 12:29:00 11/18/2014 13:46:00 DIS Emergency JESSICA BRANHAM MD [facility] ER VOMITING [id number] 11/16/2014 22:00:00 11/16/2014 22:53:00 DIS Emergency KATH NIETO APRN [facility] ER VOMITING BLOOD [id number] 11/15/2014 21:39:00 11/15/2014 23:09:00 DIS Emergency SRINIVASA GARCIA DO [facility] ER L WRIST PAIN/INJ [id number] 09/24/2014 16:09:00 09/24/2014 17:32:00 DIS Emergency KATH NIETO APRN [facility] ER ABD PAIN [id number] 06/06/2014 16:56:00 06/06/2014 17:31:00 DIS Emergency KATH NIETO APRN [facility] ER FEVER,SORE THROAT [id number] 04/15/2014 22:21:00 04/15/2014 23:40:00 DIS Emergency KATH NIETO APRN [facility] ER ADVERSE REACTION [id number] 12/27/2013 20:22:00 12/27/2013 22:02:00 DIS Emergency LINO LIRA MD [facility] ER BODY ACHES, FEVER [id number] 08/31/2013 20:05:00 08/31/2013 20:59:00 DIS Emergency SRINIVASA GARCIA DO [facility] ER INSECT BITE/STING [id number] 07/09/2013 20:49:00 07/09/2013 21:23:00 DIS Emergency KATH NIETO APRN [facility] ER L FOOT PAIN [id number] 12/19/2012 17:42:00 12/19/2012 18:28:00 DIS Emergency KATH NIETO APRN [facility] ER DOG BITE [id number] 07/28/2012 20:10:00 07/28/2012 21:05:00 DIS Emergency ANISHA BORGES [facility] ER SPIDER BITE ON LEG [id number] 06/26/2017 20:02:00 ACT Emergency KATH NIETO APRN [facility] ER VOMITING BLOOD [id number] 06/14/2012 21:57:00 Document Registration [id number] 02/19/2012 15:18:00 Document Registration [id number] 12/23/2011 03:14:00 Document Registration [id number] 03/18/2011 18:47:00 Document Registration [id number] 11/18/2014 12:29:46 ACT Document Registration [id number] 03/23/2017 12:40:00 03/23/2017 23:59:59 [facility] Outpatient GUI KAUFMAN APRN [facility]
--- NOTE | 2017-06-26 20:28 | ED GI ---
General Chief Complaint: General Problems/Pain Stated Complaint: VOMITING BLOOD Nursing Triage Note: malaise, headache, vomitting x3, fever. wants test Sepsis Screen: No Definite Risk Source of Information: Patient Exam Limitations: No Limitations History of Present Illness Date Seen by Provider: Jun 26, 2017 Time Seen by Provider: 20:27 Initial Comments To ER with reports of general malaise, headache, vomiting 3 one of which seemed to have some blood in it. Diarrhea yesterday but none today. Upper abdominal pain. Shed also like a test. Timing/Duration: 1-2 Days Severity/Quality: Moderate Location: Epigastric Radiation: No Radiation Activities at Onset: None Associated Symptoms: Nausea/Vomiting Allergies and Home Medications Allergies Coded Allergies: aripiprazole (Unverified Allergy, Mild, 07/17/15) Uncoded Allergies: VYVANCE (Allergy, Mild, 07/17/15) Home Medications Ondansetron 8 Mg Tab.rapdis, 8 MG PO Q6H PRN for NAUSEA/VOMITING-1ST LINE Prescribed by: KATH NIETO on 06/26/172130 Sulfamethoxazole/Trimethoprim 1 Each Tablet, 1 EACH PO BID Prescribed by: KATH NIETO on 06/26/172130 Patient Home Medication List Home Medication List Reviewed: Yes Review of Systems Constitutional: see HPI EENTM: No Symptoms Reported Respiratory: No Symptoms Reported Cardiovascular: No Symptoms Reported Gastrointestinal: See HPI Genitourinary: No Symptoms Reported Musculoskeletal: no symptoms reported Skin: no symptoms reported Psychiatric/Neurological: No Symptoms Reported Endocrine: No Symptoms Reported Hematologic/Lymphatic: No Symptoms Reported Past Wgusyik-Rxrxdd-Jznvmb Hx Patient Social History Alcohol Use: Occasionally Uses Recreational Drug Use: No Smoking Status: Current Everyday Smoker Type Used: Cigarettes 2nd Hand Smoke Exposure: Yes Recent Foreign Travel: No Contact w/Someone Who Travel: No Recent Infectious Disease Expo: No Recent Hopitalizations: No Immunizations Up To Date Tetanus Booster (TDap): Unknown Date of Influenza Vaccine: Dec 07, 2013 Seasonal Allergies Seasonal Allergies: No Past Medical History Surgeries: Yes (LEFT KNEE) Orthopedic Respiratory: No Currently Using CPAP: No Currently Using BIPAP: No Cardiac: No Neurological: No : No Last Menstrual Period: May 27, 2017 Reproductive Disorders: No Genitourinary: No Gastrointestinal: No Musculoskeletal: No Endocrine: No HEENT: No Cancer: No Psychosocial: Yes ADD/ADHD, Anxiety, Bipolar, Depression Integumentary: Yes (MRSA by hx) Blood Disorders: Yes (ANEMIA, VIT D DEFICIENCY) Family Medical History No Pertinent Family Hx Physical Exam Vital Signs Vital Signs - First Documented 06/26/17 20:11 Temp 98.3 Pulse 88 Resp 18 B/P (MAP) 114/82 (93) Pulse Ox 99 O2 Delivery Room Air Capillary Refill : Less Than 3 Seconds General Appearance: WD/WN, no apparent distress HEENT: PERRL/EOMI, normal ENT inspection Neck: non-tender, full range of motion Respiratory: normal breath sounds, no respiratory distress, no accessory muscle use Cardiovascular: regular rate, rhythm, no murmur Gastrointestinal: normal bowel sounds, soft, tenderness (Epigastric) Extremities: normal range of motion, non-tender Neurologic/Psychiatric: alert, normal mood/affect, oriented x 3 Skin: normal color, warm/dry Progress/Results/Core Measures Lab Results Laboratory Tests Test 06/26/17 20:24 06/26/17 21:10 Range/Units White Blood Count 10.4 4.3-11.0 10^3/uL Red Blood Count 4.32 L 4.35-5.85 10^6/uL Hemoglobin 12.7 11.5-16.0 G/DL Hematocrit 37 35-52 % Mean Corpuscular Volume 85 80-99 FL Mean Corpuscular Hemoglobin 29 25-34 PG Mean Corpuscular Hemoglobin Concent 35 32-36 G/DL Red Cell Distribution Width 13.9 10.0-14.5 % Platelet Count 293 130-400 10^3/uL Mean Platelet Volume 9.9 7.4-10.4 FL Neutrophils (%) (Auto) 61 42-75 % Lymphocytes (%) (Auto) 31 12-44 % Monocytes (%) (Auto) 5 0-12 % Eosinophils (%) (Auto) 3 0-10 % Basophils (%) (Auto) 0 0-10 % Neutrophils # (Auto) 6.3 1.8-7.8 X 10^3 Lymphocytes # (Auto) 3.2 1.0-4.0 X 10^3 Monocytes # (Auto) 0.5 0.0-1.0 X 10^3 Eosinophils # (Auto) 0.3 0.0-0.3 10^3/uL Basophils # (Auto) 0.0 0.0-0.1 10^3/uL Sodium Level 139 135-145 MMOL/L Potassium Level 3.5 L 3.6-5.0 MMOL/L Chloride Level 108 H 98-107 MMOL/L Carbon Dioxide Level 20 L 21-32 MMOL/L Anion Gap 11 5-14 MMOL/L Blood Urea Nitrogen 16 7-18 MG/DL Creatinine 0.73 0.60-1.30 MG/DL Estimat Glomerular Filtration Rate > 60 BUN/Creatinine Ratio 22 Glucose Level 80 70-105 MG/DL Calcium Level 9.4 8.5-10.1 MG/DL Total Bilirubin 0.3 0.1-1.0 MG/DL Aspartate Amino Transf (AST/SGOT) 15 5-34 U/L Alanine Aminotransferase (ALT/SGPT) 7 0-55 U/L Alkaline Phosphatase 80 40-136 U/L Total Protein 7.9 6.4-8.2 GM/DL Albumin 4.7 H 3.2-4.5 GM/DL Urine Color YELLOW Urine Clarity CLEAR Urine pH 5 5-9 Urine Specific [place] 1.020 1.016-1.022 Urine Protein NEGATIVE NEGATIVE Urine Glucose (UA) NEGATIVE NEGATIVE Urine Ketones 3+ H NEGATIVE Urine Nitrite NEGATIVE NEGATIVE Urine Bilirubin NEGATIVE NEGATIVE Urine Urobilinogen 1 NORMAL MG/DL Urine Leukocyte Esterase 1+ H NEGATIVE Urine RBC (Auto) NEGATIVE NEGATIVE Urine RBC NONE /HPF Urine WBC 10-25 H /HPF Urine Squamous Epithelial Cells 2-5 /HPF Urine Crystals NONE /LPF Urine Bacteria FEW H /HPF Urine Casts NONE /LPF Urine Mucus SMALL H /LPF Urine Trichomonas FEW H /HPF Urine Culture Indicated YES Micro Results Microbiology 06/26/17 Urine Culture - Preliminary, Resulted My Orders Orders - KATH NIETO [employer] Cbc With Automated Diff (06/26/17 20:06) Comprehensive Metabolic Panel (06/26/17 20:06) Ua Culture If Indicated (06/26/17 20:06) Urine Bedside (06/26/17 20:06) Urine Culture (06/26/17 21:10) Ondansetron Oral Dissolve Tab (Zofran (06/26/17 21:30) Sulfamethoxazole/Trimet Ds Tab (Bactrim (06/26/17 21:30) Vital Signs/I&O 06/26/17 06/26/17 20:11 21:38 Temp 98.3 98.3 Pulse 88 88 Resp 18 18 B/P (MAP) 114/82 (93) 114/82 (93) Pulse Ox 99 99 O2 Delivery Room Air Blood Pressure Mean: 93 Departure Impression Primary Impression: Nausea & vomiting Disposition: 01 HOME, SELF-CARE Condition: Stable Departure-Patient Inst. Decision time for Depature: 21:04 Referrals: GUI KAUFMAN (PCP/Family) Primary Care Physician Patient Instructions: NO INSTRUCTIONS GIVEN Add. Discharge Instructions: 1. Follow up with your doctor next week All discharge instructions reviewed with patient and/or family. Voiced understanding. Scripts Ondansetron (Zofran Odt) 8 Mg Tab.rapdis 8 MG PO Q6H PRN for NAUSEA/VOMITING-1ST LINE, #10 TAB Prov: KATH NIETO APRN 06/26/17 Sulfamethoxazole/Trimethoprim (Bactrim Ds Tablet) 1 Each Tablet 1 EACH PO BID, #10 TAB Prov: KATH NIETO APRN 06/26/17 KATH NIETO APRN Jun 26, 2017 20:28
[2017-06-26 20:31] LABS: BASOPHILS % (AUTO) 0 % (0-10); EOSINOPHILS # (AUTO) 0.3 10^3/uL (0.0-0.3); EOSINOPHILS % (AUTO) 3 % (0-10); HEMATOCRIT 37 % (35-52); HEMOGLOBIN 12.7 G/DL (11.5-16.0); LYMPHOCYTES # (AUTO) 3.2 X 10^3 (1.0-4.0); LYMPHOCYTES % (AUTO) 31 % (12-44); MEAN CORPUSCULAR HEMOGLOBIN 29 PG (25-34); MEAN CORPUSCULAR HGB CONC 35 G/DL (32-36); MEAN CORPUSCULAR VOLUME 85 FL (80-99); MEAN PLATELET VOLUME 9.9 FL (7.4-10.4); MONOCYTES # (AUTO) 0.5 X 10^3 (0.0-1.0); MONOCYTES % (AUTO) 5 % (0-12); NEUTROPHILS # (AUTO) 6.3 X 10^3 (1.8-7.8); NEUTROPHILS % (AUTO) 61 % (42-75); PLATELET COUNT 293 10^3/uL (130-400); RED BLOOD COUNT 4.32 10^6/uL (4.35-5.85); RED CELL DISTRIBUTION WIDTH 13.9 % (10.0-14.5); WHITE BLOOD COUNT 10.4 10^3/uL (4.3-11.0)
[2017-06-26 20:50] LABS: ALANINE AMINOTRANSFERASE 7 U/L (0-55); ALBUMIN 4.7 GM/DL (3.2-4.5); ALKALINE PHOSPHATASE 80 U/L (40-136); BILIRUBIN,TOTAL 0.3 MG/DL (0.1-1.0); BUN/CREATININE RATIO 22; CALCIUM 9.4 MG/DL (8.5-10.1); CARBON DIOXIDE 20 MMOL/L (21-32); CHLORIDE 108 MMOL/L (98-107); CREATININE SERUM 0.73 MG/DL (0.60-1.30); GFR ESTIMATED > 60; GLUCOSE 80 MG/DL (70-105); POTASSIUM 3.5 MMOL/L (3.6-5.0); SODIUM 139 MMOL/L (135-145); TOTAL PROTEIN 7.9 GM/DL (6.4-8.2)
[2017-06-26 21:18] LABS: BILIRUBIN,URINE NEGATIVE (NEGATIVE); CLARITY,URINE CLEAR; COLOR,URINE YELLOW; GLUCOSE, URINE (UA) NEGATIVE (NEGATIVE); KETONES,URINE 3+ (NEGATIVE); LEUKOCYTE ESTERASE ,URINE 1+ (NEGATIVE); NITRITE,URINE NEGATIVE (NEGATIVE); PH,URINE 5 (5-9); PROTEIN,URINE NEGATIVE (NEGATIVE); UROBILINOGEN,URINE 1 MG/DL (NORMAL)
[2017-06-26 21:27] LABS: BACTERIA,URINE FEW /HPF; TRICHOMONAS,URINE FEW /HPF
[2017-06-26] MEDS ORDERED: TRIM/SULFAMETH 160/800 (SEPTRA DS) TAB PO ONE (21:30)
[2017-06-26] MEDS ORDERED: ONDANSETRON 4 MG (ZOFRAN) ORAL DISSOLVE TAB PO ONE (21:30)
[2017-06-26] MEDS ORDERED: SULF1TAB35 PO (21:31)
[2017-06-26] MEDS ORDERED: ONDA8TAB9 PO (21:31)
[2017-06-26 21:38] VITALS: BP 114/82
== END 2017-06-26 21:38 | disposition home or self-care (01) ==
LOC: EDUNIT# 20:01 → ER 20:02
DX: R11.2 Nausea with vomiting, unspecified (principal); F90.9 Attention-deficit hyperactivity disorder, unspecified type; F41.9 Anxiety disorder, unspecified; F31.9 Bipolar disorder, unspecified; F17.210 Nicotine dependence, cigarettes, uncomplicated; Z88.8 Allergy status to other drugs, medicaments and biological substances; Z86.14 Personal history of Methicillin resistant Staphylococcus aureus infection
CPT/HCPCS: 36415; 80053; 81000; 84703; 85025; 87088; 99283

== ENCOUNTER 2018-04-11 16:13 | Emergency (ER) | payer OTHER ==
[~2018-04-11] VITALS: Ht 157.5 cm; Wt 54.4 kg
[~2018-04-11 16:13] MED LIST changes: +ONDA8TAB9 PO; -OXCA150T; -OXCA150T PO; +OXCA150T18; +OXCA150T18 PO; +TRAZ-189; -TRAZ-28
--- OUTSIDE RECORDS SUMMARY | 2018-04-11 16:19 | XMS REPORT ---
Author Author ABDIAZIZ GOFF [facility] [place] Address [address] [place] [address] Care Team Providers Care Parts Identification Technician Name Role Phone ABDIAZIZ GOFF Unavailable PROBLEMS Type Condition ICD9-CM Code [id number] Code Onset Dates Condition Status SNOMED Code Problem Unspecified mood [affective] disorder F39 Active 479876874 Problem Attention deficit hyperactivity disorder (ADHD), combined type F90.2 Active 425807080 Problem Bipolar disorder, unspecified F31.9 Active 21051887 Problem Well woman exam Z01.419 Active 628124969 Problem Schizoaffective disorder F25.9 Active 21996457 Problem Generalized anxiety disorder F41.1 Active 17891582 Problem Amenorrhea N91.2 Active 47600906 Problem Seasonal allergic rhinitis due to pollen J30.1 Active 27731184 Problem Bipolar disorder with depression F31.30 Active 42930634 Problem Chronic fatigue R53.82 Active 10211006 Problem Pain in left knee M25.562 Active 17018140 Problem Long-term use of high-risk medication Z79.899 Active 193505397 Problem Low hemoglobin D64.9 Active 824754651 Problem Routine gynecological examination Z01.419 Active 862726196 Problem High risk medication use Z79.899 Active 174080115 Problem Pain in right knee M25.561 Active 89614135 Problem General counseling and advice on female contraception Z30.09 Active 70929001 Problem Vitamin D deficiency E55.9 Active 04172278 Problem Iron deficiency anemia due to chronic blood loss D50.0 Active 39267907 ALLERGIES Substance Reaction Event Type Date Status Vyvanse vomiting and diarrhea Drug Allergy Oct, Active Abilify twitching Drug Allergy Oct, Active ENCOUNTERS Encounter Location Date Diagnosis [facility] [place] [id number] [address] Oct Pain in right shoulder M25.511 and Bipolar disorder with depression F31.30 [facility] [address], [place] [address] July, [facility] [id number] [place] [address] 43428- 6529 July, [facility] [id number] [place] [address] 09077- 8631 July, Well woman exam Z01.419 and Vaginal discharge N89.8 [facility] [id number] [place] [address] 05597- 1924 Jun, [facility] [id number] [place] [address] 14260 -1225 Mar, [facility] [id number] [place] [address] 99452- 4172 May, Bipolar disorder, unspecified F31.9 [facility] [id number] [place] [address] 15646- 5272 May, Bipolar disorder, unspecified F31.9 ; Attention deficit hyperactivity disorder (ADHD), combined type F90.2 and Schizoaffective disorder F25.9 [facility] [id number] [place] [address] 83203- 2404 May, Bipolar disorder with depression F31.30 [facility] [id number] [place] [address] 86715- 7916 May, Bipolar disorder, unspecified F31.9 ; Attention deficit hyperactivity disorder (ADHD), combined type F90.2 and Schizoaffective disorder F25.9 [place] [address] [place] [address] 05626- 8724 Apr, Seasonal allergic rhinitis due to pollen J30.1 [place] [address] [place] [address] 66786- 8574 Apr, [facility] [id number] [place] [address] 49196- 5905 Mar, Attention deficit disorder (ADD) without 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 ; Bipolar disorder with depression F31.30 and Generalized anxiety disorder F41.1 [facility] [address] [place] [address] 90767- 8226 Mar, [facility] [id number] [place] [address] 12577- 5940 Feb, Unspecified mood [affective] disorder F39 [facility] [id number] [place] [address] 61970- 4865 Feb, Unspecified mood [affective] disorder F39 [facility] [id number] [place] [address] 90499- 5061 Feb, [facility] [id number] [place] [address] 58842- 4228 Jan, Amenorrhea N91.2 ; Vitamin D deficiency E55.9 and Iron deficiency anemia due to chronic blood loss D50.0 [place] [id number] [place] [address] 64287- 8850 Jan, Encounter for test Z32.00 [facility] [id number] [place] [address] 55936- 8767 Dec, Unspecified mood [affective] disorder F39 ; Bipolar disorder , unspecified F31.9 and Attention deficit hyperactivity disorder (ADHD), combined type F90.2 [facility] [address] [place] [address] 48786- 2288 Nov, [facility] [id number] [place] [address] 06644- 2354 Nov, [facility] [id number] [place] [address] 67712- 5592 Nov, [facility] [id number] [place] [address] 41577- 2818 Nov, [facility] [id number] [place] [address] 98267- 1830 Nov, [facility] [address], [place] [address] Nov, Dysuria R30.0 [facility] [address] [place] [address] 46653- 5696 Oct, [facility] [address], [place] [address] 8757 Oct, [facility] [id number] [place] [address] 23719- 0659 Sep, [facility] [id number] [place] [address] 40781- 1837 Sep, Bipolar disorder, unspecified F31.9 and Schizoaffective disorder F25.9 [facility] [address] [place] [address] 71289- 4883 Sep, [facility] [id number] [place] [address] 96943- 3616 Aug, Unspecified mood [affective] disorder F39 [facility] [address] [place] [address] 15515- 8761 Aug, [facility] [address] [place] [address] 49728- 2872 Aug, General counseling and advice on female contraception Z30.09 and Iron deficiency anemia due to chronic blood loss D50.0 [facility] [address] [place] [address] 63064- 0423 July, Routine gynecological examination Z01.419 ; General counseling and advice on female contraception Z30.09 ; High risk medication use Z79.899 ; Other specified bacterial agents as the cause of diseases classified elsewhere B96.89 and Acute vaginitis N76.0 [facility] [address], [place] [address] 3[address] July, Attention deficit hyperactivity disorder (ADHD), combined type F90.2 ; Bipolar disorder, unspecified F31.9 and Schizoaffective disorder F25.9 [facility] [id number] [address] 9736 July, Unspecified mood [affective] disorder F39 [facility] [id number] [place] [address] 79591- 1541 July, [facility] [facility] [id number] [place] [address] 81505- 1523 July, [facility] [id number] [place] [address] 51706- 7251 July, Low hemoglobin D64.9 [facility] [id number] [place] [address] 15533- 8785 July, [facility] [facility] [id number] [place] [address] 24605- 2725 July, General counselling and advice on contraception Z30.09 ; Pain in left knee M25.562 ; Pain in right knee M25.561 ; Chronic fatigue R53.82 and Vitamin D deficiency E55.9 [place] [id number] [place] [address] 29187- 4449 Jun, Fatigue R53.83 [place] [facility] [id number] [place] [address] 72770- 6932 Jun, Fatigue R53.83 ; Low hemoglobin D64.9 ; Long-term use of high-risk medication Z79.899 ; Sore throat J02.9 and Fever, low grade R50.9 [place] [facility] [address], [place] [address]- 6582 Jun, Unspecified mood [affective] disorder F39 [place] [facility] [id number] [place] [address] 21216- 4075 May, Unspecified mood [affective] disorder F39 [place] [facility] [address] [place] [address] 80953- 9557 May, [facility] [id number] [place] [address] 90993- 0668 May, Attention deficit hyperactivity disorder (ADHD), combined type F90.2 ; Bipolar disorder, unspecified F31.9 and Schizoaffective disorder F25.9 [facility] [id number] [place] [address] 02501- 0934 May, [facility] [address] [place] [address] 54719- 3832 Apr, [facility] [id number] [place] [address] 99983- 7986 Apr, [facility] [id number] [place] [address] 11595- 5766 Apr, [facility] [id number] [place] [address] 27941- 5686 Apr, [facility] [id number] [place] [address] [id number] Apr, Ingestion of unknown drug T50.901A [facility] [address] [place] [address] 41736- 4964 Apr, [facility] [id number] [place] [address] 35184- 6027 Apr, Unspecified mood [affective] disorder F39 [facility] [address], [place] [address]- 5429 Apr, Unspecified mood [affective] disorder F39 [facility] [address], [place] [address]- 1217 Apr, Unspecified mood [affective] disorder F39 [facility] [address] [place] [address] 80728- 5781 Apr, nursing home use of drug Z79.899 ; Attention deficit hyperactivity disorder (ADHD), combined type F90.2 ; Bipolar disorder, unspecified F31.9 and Schizoaffective disorder F25.9 [facility] [address] [place] [address] 94192- 3702 Mar, Unspecified mood [affective] disorder F39 [facility] [address] [id number] Mar, Menstrual period late N91.0 and High risk sexual behavior Z72.51 [facility] [address], [place] [address]- 8068 Mar, Unspecified mood [affective] disorder F39 [facility] [id number] [place] [address] 47769- 5831 Mar, Unspecified mood [affective] disorder F39 [facility] [id number] [place] [address] 22843- 0551 Mar, Unspecified mood [affective] disorder [address] [place] [address] [id number] [place] [address] 09194- 4720 Feb, [facility] [id number] [place] [address] 59042- 3008 Feb, Attention deficit hyperactivity disorder (ADHD), combined type F90.2 ; Episodic mood disorder 296.90 and Bipolar disorder, unspecified F31.9 [facility] [address] [place] [address] 82665- 8738 Feb, Major depressive disorder, recurrent, moderate F33.1 [facility] [address] [place] [address] 84280- 8333 Feb, Unspecified mood [affective] disorder F39 [facility] [address] [place] [address] 68463- 4818 Feb, Unspecified mood [affective] disorder F39 [facility] [id number] [place] [address] 07531- 0868 Feb, [facility] [address] [place] [address] 82845- 2741 Feb, Unspecified mood [affective] disorder F39 [facility] [id number] [place] [address] 27227- 6283 Feb, Bipolar disorder, unspecified F31.9 [facility] [id number], [place] [address]- 9867 Jan, [facility] [address] [place] [address] 86960- 9034 Jan, Unspecified mood [affective] disorder F39 [facility] [id number] [place] [address] 04207- 3104 Jan, Unspecified mood [affective] disorder F39 [facility] [id number] [place] [address] 73466- 4070 Jan, Bipolar disorder, unspecified F31.9 [facility] [address] [place] [address] 79843- 6948 Jan, Attention deficit hyperactivity disorder (ADHD), combined type F90.2 and Bipolar disorder, unspecified F31.9 [facility] [address], [place] [address]- 9716 Jan, [facility] [address] [place] [address] 60179- 4041 Jan, [facility] [address], [place] [address]- 9093 Jan, Unspecified mood [affective] disorder F39 [facility] [address], [place] [address]- 9241 Dec, Unspecified mood [affective] disorder F39 [facility] [id number] [address]- 6232 Dec, Unspecified mood [affective] disorder F39 [facility] [id number], [place] [address]- 0418 Dec, Unspecified mood [affective] disorder F39 [facility] [address], [place] [address]- 0490 Dec, [facility] [id number] [place] [address] 12346- 1151 Dec, Viral upper respiratory tract infection J06.9 ; Encounter for immunization Z23 and Smoker F17.200 [facility] [id number] [place] [address] 08625- 0979 Dec, [facility] [id number] [place] [address] 07782- 6452 Dec, Schizoaffective disorder F25.9 and Attention deficit hyperactivity disorder (ADHD), combined type F90.2 [facility] [id number] [place] [address] 30377- 6519 Nov, [place] [address] 10879- 0894 Nov, Unspecified mood [affective] disorder F39 [place] [address] 43575- 5123 Nov, Schizoaffective disorder, unspecified 295.70 ; Generalized anxiety disorder 300.02 and Attention deficit disorder of childhood with hyperactivity 314.01 [facility] [address] 48498- 7922 Oct, [facility] [id number] [place] [address] 15027- 7645 Oct, [facility] [id number] [place] [address] 24155- 2874 Oct, [facility] [id number] [place] [address] 09551- 3292 Oct, Affective disorder 296.90 [facility] [id number] [place] [address] 99190- 3602 Oct, Screen for STD (sexually transmitted disease) V74.5 and Encounter for counseling regarding contraception V25.09 [facility] [id number] [place] [address] 76235- 2836 Sep, [facility] [address] [address]- 3170 Sep, [facility] [address], [place] [address]- 7118 Sep, Episodic mood disorder 296.90 [facility] [id number] [place] [address]- 1017 Sep, [facility] [address] [place] [address]- 0138 Sep, [facility] [id number] [address]- 9664 Aug, [facility] [address] [place] [address]- 4740 Aug, [facility] [id number] [address]- 7570 Aug, [facility] [address], [place] [address]- 1364 Aug, Episodic mood disorder 296.90 [facility] [address] [place] [address]- 5237 Aug, [facility] [address], [place] [address]- 8441 July, Allergic rhinitis 477.9 [facility] [id number] [address]- 1210 July, Schizoaffective disorder, unspecified 295.70 [facility] [id number] [address]- 4739 July, [facility] [address], [place] [address]- 0198 Jun, [facility] [address], [place] [address]- 0054 Jun, [facility] [id number] [address]- 0064 May, [facility] [place] [facility] [address] [id number] [place] [address]- 1149 May, [facility] [place] [facility] [address] [id number] [place] [address]- 7864 May, [facility] [place] [facility] [address] [id number] [place] [address]- 5987 May, [facility] [place] [facility] [address] [id number] [place] [address]- 4492 Apr, [facility] [place] [facility] [address] [id number] [place] [address]- 6600 Apr, [facility] [place] [facility] [address] [id number] [place] [address]- 8296 Apr, [facility] [place] [facility] [address] [id number] [place] [address]- 5889 Apr, [facility] [place] [facility] [address] [id number] [place] [address]- 5688 Apr, [facility] [place] [facility] [address] [id number] [place] [address]- 6310 Apr, [facility] [place] [facility] [address] [id number] [place] [address]- 6795 Apr, [facility] [place] [facility] [address] [id number] [place] [address]- 2938 Apr, [facility] [place] [facility] [address] [id number] [place] [address]- 0838 Mar, [facility] [place] [facility] [address] [id number] [place] [address]- 7640 Mar, [facility] [place] [facility] [address] [id number] [place] [address]- 1347 Mar, [facility] [place] [facility] [address] [id number] [place] [address]- 1822 Mar, [facility] [place] [facility] [address] [id number] [place] 9804 31 Feb, 2014 [facility] [place] [facility] [address] [id number] [place] 4346 31 Feb, 2014 [facility] [place] [facility] [address] [id number] [place] 5949 Feb, [facility] [place] [facility] [address] [facility] [id number] [place] 8614 Feb, [facility] [place] [facility] [address] [id number] [place] [address]- 7596 Feb, [facility] [place] [facility] [address] [id number] [place] 2807 Feb, [facility] [place] [facility] [address] [id number] [place] [address]- 4244 Feb, [facility] [place] [facility] [address] [facility] [id number] [place] [address]- 1991 Feb, [facility] [place] [facility] [address] [id number] [place] [address]- 4623 Feb, [facility] [place] [facility] [address] [id number] [place] [address]- 0073 Feb, [facility] [place] [facility] [address] [facility] [id number] [place] [address]- 8275 Feb, [facility] [place] [facility] [address] [id number] [place] [address]- 2567 Jan, [facility] [place] [facility] [address] [id number] [place] [address]- 8399 Jan, [facility] [place] [facility] [address] [id number] [place] [address]- 7338 Dec, [facility] [place] [facility] [address] [id number] [place] [address]- 8383 Dec, [facility] [place] [facility] [address] [facility] [id number] [place] [address]- 6906 Dec, [facility] [place] [facility] [address] [id number] [place] [address]- 7268 Dec, 2013 [facility] [place] [facility] [address] [id number] [place] [address]- 4900 Dec, 2013 [facility] [place] [facility] [address] [id number] [place] [address]- 9328 Dec, 2013 [facility] [place] [facility] [address] [id number] [place] [address]- 8843 Dec, 2013 [facility] [place] [facility] [address] [id number] [place] [address]- 8172 Dec, 2013 [facility] [place] [facility] [address] [id number] [place] [address]- 5973 Dec, [facility] [place] [facility] [address] [id number] [place] [address]- 1648 Dec, [facility] [place] [facility] [address] [id number] [place] [address] Dec, [facility] [place] [facility] [address] [id number] [place] [address] Dec, [facility] [place] [facility] [address] [id number] [place] [address] Dec, [facility] [place] [facility] [address] [id number] [place] [address] Dec, [facility] [place] [facility] [address] [id number] [place] [address] Dec, [facility] [place] [facility] [address] [id number] [place] [address] Dec, [facility] [place] [facility] [address] [id number] [place] [address] Dec, [facility] [place] [facility] [address] [id number] [place] [address] Dec, [facility] [place] [facility] [address] [id number] [place] [address] 07 Dec, 2013 [facility] [place] [facility] [address] [id number] [place] [address] Dec, [facility] [place] [facility] [address] [id number] [place] [address] Dec, [facility] [place] [facility] [address] [id number] [place] [address] Dec, [facility] [place] [facility] [address] [id number] [place] [address] Dec, [facility] [place] [facility] [address] [id number] [place] [address] Dec, [facility] [place] [facility] [address] [id number] [place] [address] 22 Nov, 2013 [facility] [place] [facility] [address] [id number] [place] [address] 22 Nov, 2013 [facility] [place] [facility] [address] [id number] [place] [address] 22 Nov, 2013 [facility] [place] [facility] [address] [id number] [place] [address] 22 Nov, 2013 [facility] [place] [facility] [address] [id number] [place] [address]- [address] 22 Nov, 2013 [facility] [place] [facility] [address] [id number] [place] [address] 22 Nov, 2013 [facility] [place] [facility] [address] [id number], [place] [address] 17 Sep, 2013 [facility] [place] [facility] [address] [id number] [place] [address] 17 Sep, 2013 [facility] [place] [facility] [address] [id number] [place] [address] 15 Sep, 2013 [facility] [place] [facility] [address] [id number] [place] [address] 15 Nov, 2013 [facility] [place] [facility] [address] [id number] [place] [address] Nov, [facility] [place] [facility] [address] [id number] [place] [address] Nov, [facility] [place] [facility] [address] [id number] [place] [address] Nov, [facility] [place] [facility] [address] [id number] [place] [address] Nov, [facility] [place] [facility] [address] [id number] [place] [address] Oct, [facility] [place] [facility] [address] [id number] [place] [address] Oct, [facility] [place] [facility] [address] [id number] [place] [address] Oct, [facility] [place] [facility] [address] [id number] [place] [address] Oct, [facility] [place] [facility] [address] [id number] [place] [address] Oct, [facility] [place] [facility] [address] [id number] [place] [address] Oct, [facility] [place] [facility] [address] [id number] [place] [address] Oct, [facility] [place] [facility] [address] [id number] [place] [address] Oct, [facility] [place] [facility] [address] [id number] [place] [address] Sep, [facility] [place] [facility] [address] [id number] [place] [address] Sep, [facility] [place] [facility] [address] [id number] [place] [address] 1710 Sep, [facility] [place] [facility] [address] [id number] [place] [address] Sep, [facility] [place] [facility] [address] [id number] [place] [address] 9269 Sep, [facility] [place] [facility] [address] [id number] [place] [address] 8279 Sep, [facility] [place] [facility] [address] [id number] [place] [address] 2157 Aug, [facility] [place] [facility] [address] [id number] [place] [address] 9513 Aug, [facility] [place] [facility] [address] [id number] [place] [address] 4914 July, [facility] [place] [facility] [address] [id number] [place] [address] July, [facility] [place] [facility] [address] [id number] [place] [address] 4[address] July, [facility] [place] [facility] [address] [id number] [place] [address] 1660 July, [facility] [place] [facility] [address] [id number] [place] [address] 2144 July, [facility] [place] [facility] [address] [id number] [place] [address] July, [facility] [place] [facility] [address] [id number] [place] [address] July, [facility] [place] [facility] [address] [id number] [place] [address] 4099 July, [facility] [place] [facility] [address] [id number] [place] [address]- 4045 July, [facility] [place] [facility] [address] [id number] [place] [address] 0960 July[facility] [place] [facility] [address] [id number] [place] [address] 5040 July, [facility] [place] [facility] [address] [id number] [place] [address] 6164 July, [facility] [place] [facility] [address] [id number] [place] [address] 2731 July, [facility] [place] [facility] [address] [id number] [place] [address] 2992 July, [facility] [place] [facility] [address] [id number] [place] [address]- 0432 July, [facility] [place] [facility] [address] [id number] [place] [address]- 0594 July, [facility] [place] [facility] [address] [id number] [place] [address]- 7006 July, [facility] [place] [facility] [address] [id number] [place] [address]- 5464 July, [facility] [place] [facility] [address] [id number] [place] [address]- 9021 Jun, [facility] [place] [facility] [address] [id number] [place] [address]- 5358 Jun, [facility] [place] [facility] [address] [id number] [place] [address]- 7344 Jun, [facility] [place] [facility] [address] [id number] [place] [address]- 8470 Jun, [facility] [place] [facility] [address] [id number] [place] [address]- 4455 Jun, [facility] [place] [facility] [address] [id number] [place] [address]- 2064 Jun, [facility] [place] [facility] [address] [id number] [place] [address]- 9078 Jun, [facility] [place] [facility] [address] [id number] [place] [address]- 9216 Jun, [facility] [place] [facility] [address] [id number] [place] [address]- 0419 Jun, [facility] [place] [facility] [address] [id number] [place] [address]- 4522 10 Jun, 2013 [facility] [place] [facility] [address] [id number] [place] [address]- 4921 Jun, [facility] [place] [facility] [address] [id number] [place] [address]- 9526 Jun, [facility] [place] [facility] [address] [id number] [place] [address]- 3184 May, [facility] [place] [facility] [address] [id number] [place] [address]- 4482 May, [facility] [place] [facility] [address] [id number] [place] [address]- 9811 May, [facility] [place] [facility] [address] [id number] [place] [address]- 7463 May, [facility] [place] [facility] [address] [id number] [place] [address]- 4074 May, [facility] [place] [facility] [address] [id number] [place] [address]- 0439 May, [facility] [place] [facility] [address] [id number] [place] [address]- 9206 May, [facility] [place] [facility] [address] [id number] [place] [address]- 2520 May, [facility] [place] [facility] [address] [id number] [place] [address]- 3839 May, [facility] [place] [facility] [address] [id number] [place] [address]- 5071 May, [facility] [place] [facility] [address] [id number] [place] [address]- 4054 Apr, [facility] [place] [facility] [address] [id number] [place] [address]- 6326 Apr, [facility] [place] [facility] [address] [id number] [place] [address]- 4507 Apr, [facility] [place] [facility] [address] [id number] [place] [address]- 5614 Apr, [facility] [place] [facility] [address] [id number] [place] [address]- 8586 Apr, [facility] [place] [facility] [address] [facility] [id number] [place] [address] 8411 Apr, [facility] [place] [facility] [address] [id number] [place] [address]- 0605 Apr, [facility] [place] [facility] [address] [id number] [place] [address]- 1629 Apr, [facility] [place] [facility] [address] [facility] [id number] [place] [address]- 9991 Apr, [facility] [place] [facility] [address] [facility] [id number] [place] [address]- 1270 Apr, [facility] [place] [facility] [address] [facility] [id number] [place] [address]- 6824 Apr, [facility] [place] [facility] [address] [facility] [id number] [place] [address]- 5564 Apr, [facility] [place] [facility] [address] [facility] [id number] [place] [address]- 0519 Apr, [facility] [place] [facility] [address] [facility] [id number] [place] [address]- 1562 Apr, [facility] [place] [facility] [address] [facility] [id number] [place] [address]- 8712 Mar, [facility] [place] [facility] [address] [facility] [id number] [place] [address]- 5649 Mar, [facility] [place] [facility] [address] [facility] [id number] [place] [address]- 5837 Mar, [facility] [place] [facility] [address] [facility] [id number] [place] [address]- 1114 Mar, [facility] [place] [facility] [address] [id number] [place] [address]- 1819 Mar, [facility] [address] [id number] [place] [address]- 7984 Mar, [facility] [address] [id number] [place] [address]- 2510 Mar, [facility] [address] [id number] [place] [address]- 3359 Mar, [facility] [address] [id number] [place] [address]- 8900 Mar, [facility] [address] [id number] [place] [address]- 6913 Mar, [facility] [address] [id number] [place] [address]- 5052 Mar, [facility] [address] [id number] [place] [address]- 6609 Mar, [facility] [address] [id number] [place] [address]- 8194 Feb, [facility] [address] [id number] [place] [address]- 6698 Feb, [facility] [address] [id number] [place] [address]- 7234 Feb, [facility] [address] [id number] [place] [address]- 1243 Feb, [facility] [address] [id number] [place] [address]- 4849 Feb, [facility] [place] [facility] [address] [id number] [place] [address]- 5941 Feb, [facility] [place] [facility] [address] [id number] [place] [address]- 6224 Feb, [facility] [place] [facility] [address] [id number] [place] [address]- 6900 05 Feb, 2013 [facility] [place] [facility] [address] [id number] [place] [address] 05 Feb, 2013 [facility] [place] [facility] [address] [id number] [place] [address]- 8561 Feb, [facility] [place] [facility] [address] [id number] [place] [address]- 1918 Feb, [facility] [place] [facility] [address] [id number] [place] [address]- 1344 Jan, [facility] [place] [facility] [address] [id number] [place] [address]- 6423 Jan, [facility] [place] [facility] [address] [id number] [place] [address]- 8866 Jan, [facility] [place] [facility] [address] [id number] [place] [address]- 8278 Jan, [facility] [place] [facility] [address] [id number] [place] [address]- 3913 Jan, [facility] [place] [facility] [address] [id number], [place] [address]- 0523 Jan, [facility] [place] [facility] [address] [id number] [place] [address]- 2061 Jan, [facility] [place] [facility] [address] [id number], [place] [address]- 0282 Dec, [facility] [place] [facility] [address] [id number], [place] [address]- 8879 17 Dec, 2012 [facility] [place] [facility] [address] [id number], [place] [address]- 2012 10 Dec, 2012 [facility] [place] [facility] [address] [id number], [place] [address]- 6463 Dec, [facility] [place] [facility] [address] [id number] [address]12 Dec, [facility] [place] [facility] [address] [id number] [place] [address]- 1535 Nov, [facility] [address] [id number] [place] [address]- 2287 Oct, [facility] [place] [facility] [address] [id number] [place] [address]- 2500 Oct, [facility] [address] [id number] [place] [address]- 5524 Oct, [facility] [place] [facility] [address] [id number] [place] [address]- 4283 Oct, [facility] [address] [id number] [place] [address]- 2157 Oct, [facility] [address] [id number] [place] [address]- 8465 Sep, [facility] [place] [facility] [address] [id number] [place] [address]- 1129 Sep, [facility] [address] [id number] [place] [address]- 2892 Sep, [facility] [place] [facility] [address] [id number] [place] [address]- 4950 Sep, [facility] [address] [id number] [place] [address]- 3341 Aug, [facility] [place] [facility] [address] [id number] [place] [address]- 0039 Aug, [facility] [place] [facility] [address] [id number] [place] [address]- 5456 Aug, [facility] [place] [facility] [address] [id number] [place] [address]- 3993 Aug, [facility] [place] [facility] [address] [id number] [place] [address]- 5431 Aug, [facility] [place] [facility] [address] [id number] [place] [address]- 8549 July, [facility] [address] [id number] [place] [address]- 6969 July, [facility] [address] [id number] [place] [address]- 0584 July, [facility] [address] [id number] [place] [address]- 1046 July, [facility] [address] [id number] [place] [address]- 1648 Jun, [facility] [address] [id number] [place] [address]- 5059 Jun, [facility] [address] [id number] [place] [address]- 1356 May, [facility] [address] [id number] [place] [address]- 1286 May, [facility] [address] [id number] [place] [address]- 4997 Apr, [facility] [address] [id number] [place] [address]- 5379 Apr, [facility] [address] [id number] [place] [address]- 4598 Mar, [facility] [address] [id number] [place] [address]- 5306 Mar, [facility] [address] [id number] [place] [address]- 7788 Feb, [facility] [place] [facility] [address] [id number] [place] [address] Feb, [facility] [place] [facility] [address] [id number] [place] [address]- 4376 Feb, [facility] [place] [facility] [address] [id number] [place] [address]- 4796 Feb, [facility] [place] [facility] [address] [id number] [place] [address]- 6196 Feb, [facility] [place] [facility] [address] [id number] [place] [address]- 8862 Feb, [facility] [place] [facility] [address] [id number] [place] [address]- 4764 Jan, [facility] [place] [facility] [address] [id number] [place] [address]- 1957 Jan, [facility] [place] [facility] [address] [id number] [place] [address]- 9190 Jan, [facility] [place] [facility] [address] [id number] [place] [address]- 5915 Jan, [facility] [place] [facility] [address] [id number] [place] [address]- 4644 Dec, [facility] [place] [facility] [address] [id number] [place] [address]- 7319 Dec, [facility] [place] [facility] [address] [id number] [place] [address]- 4929 18 Nov, 2011 [facility] [place] [facility] [address] [id number] [place] [address]- 2467 12 Nov, 2011 [facility] [place] [facility] [address] [facility] [id number] [place] [address]- 9484 Nov, [facility] [place] [facility] [address] [id number] [place] [address]- 6739 Oct, [facility] [place] [facility] [address] [id number] [place] [address] 2548 Sep, [facility] [place] [facility] [address] [id number] [place] [address]- 6698 Aug, [facility] [place] [facility] [address] [id number] [place] [address]- 3016 July, [facility] [place] [facility] [address] [facility] [id number] [place] [address]- 2339 July, [facility] [place] [facility] [address] [id number] [place] [address]- 2311 July, [facility] [address] [id number] [place] [address]- 1041 July, [facility] [place] [facility] [address] [id number] [place] [address]- 1886 July, [facility] [address] [id number] [place] [address]- 6600 Jun, [facility] [address] [id number] [place] [address]- 9488 May, [facility] [place] [facility] [address] [id number] [place] [address]- 1890 May, [facility] [address] [id number] [place] [address]- 4123 May, [facility] [address] [id number] [place] [address]- 2236 Apr, [facility] [address] [id number] [place] [address]- 6325 Apr, [facility] [address] [id number] [place] [address]- 0599 Mar, [facility] [address] [id number] [place] [address]- 0525 16 Feb, 2011 [facility] [place] [facility] [address] [id number] [place] [address]- 8660 16 Feb, 2011 [facility] [place] [facility] [address] [id number] [place] [address]- 2478 16 Feb, 2011 [facility] [place] [facility] [address] [id number] [place] [address]- 6853 15 Feb, 2011 [facility] [place] [facility] [address] [id number] [place] [address]- 7512 14 Feb, 2011 [facility] [place] [facility] [address] [id number], [place] [address] 2546 14 Feb, 2011 [facility] [address], [place] [address]- 2246 14 Feb, 2011 [facility] [id number], [place] [address] Jan, [facility] [id number], [place] [address] 2546 Jan, [facility] [id number], [place] [address]- 0099 Jan, [facility] [id number], [place] [address]- 4948 Aug, [facility] [id number], [place] [address]- 6646 30 Feb, 2010 [facility] [id number], [place] [address]- 3918 Feb, [facility] [id number], [place] [address] 2544 Feb, [facility] [id number], [place] [address]- 4062 Dec, [facility] [address], [place] [address]- 0972 Jun, [facility] [id number], [place] [address]- 5063 Dec, [facility] [address], [place] [address] 2543 Sep, IMMUNIZATIONS No Known Immunizations SOCIAL HISTORY Never Assessed REASON FOR VISIT ER f/u, Pt went to ER due to Rt shoulder and arm pain. on 10/19/2017, Pt states sharp pain, and tearing with movement. ROSALVA Merino PLAN OF CARE Activity Details Follow Up prn Reason: VITAL SIGNS Height 63.5 in 2017-10-21 Weight 112.8 lbs 2017-10-21 Temperature 97.7 degrees Fahrenheit 2017-10-21 Heart Rate 86 bpm 2017-10-21 Respiratory Rate 18 2017-10-21 Oximetry 98 % 2017-10-21 BMI 19.67 kg/m2 2017-10-21 Blood pressure systolic 100 mmHg 2017-10-21 Blood pressure diastolic 68 mmHg 2017-10-21 MEDICATIONS Medication Instructions Dosage Frequency Start Date End Date Duration Status Naproxen 500 mg Orally every 12 hrs 1 tablet with food or milk as needed 12h 20 Oct, 2017 Nov, 14 days Active PrednisoLONE 5 MG Orally Once a day 1 tablet with food or milk in the morning 24h Active Cyclobenzaprine HCl 10 MG Orally Three times a day 1 tablet as needed 8h Active RESULTS Name Result Date Reference Range Xray : Shoulder, Right 2 view PROCEDURES No Known procedures INSTRUCTIONS MEDICATIONS ADMINISTERED No Known Medications MEDICAL (GENERAL) HISTORY Type Description Date Medical [...] disorder of childhood with hyperactivity Hospitalization History [facility] Unit Mental Breakdown 05/2015 Hospitalization History Overdose VC 07/17/15
--- OUTSIDE RECORDS SUMMARY | 2018-04-11 16:20 | XMS REPORT ---
Author Author [facility] Address [address] [place] [address] Care Team Providers Care Boom Tender Name Role Phone REBECCA CONN Unavailable PROBLEMS Type Condition ICD9-CM Code QRE70-RH Code Onset Dates Condition Status SNOMED Code Problem Unspecified mood [affective] disorder F39 Active 916639687 Problem Attention deficit hyperactivity disorder (ADHD), combined type F90.2 Active 923733767 Problem Bipolar disorder, unspecified F31.9 Active 35551429 Problem Well woman exam Z01.419 Active 169805061 Problem Schizoaffective disorder F25.9 Active 72143152 Problem Generalized anxiety disorder F41.1 Active 27858819 Problem Amenorrhea N91.2 Active 68154858 Problem Seasonal allergic rhinitis due to pollen J30.1 Active 75395969 Problem Bipolar disorder with depression F31.30 Active 90135889 Problem Chronic fatigue R53.82 Active 91169587 Problem Pain in left knee M25.562 Active 81213342 Problem Long-term use of high-risk medication Z79.899 Active 481528255 Problem Low hemoglobin D64.9 Active 928758203 Problem Routine gynecological examination Z01.419 Active 472544220 Problem High risk medication use Z79.899 Active 538395941 Problem Pain in right knee M25.561 Active 21704779 Problem General counseling and advice on female contraception Z30.09 Active 76614734 Problem Vitamin D deficiency E55.9 Active 01609955 Problem Iron deficiency anemia due to chronic blood loss D50.0 Active 34831417 ALLERGIES No Information ENCOUNTERS Encounter Location Date Diagnosis [facility] [address] [facility] [id number] [address] July, [facility] [address] [id number] [address] 6695 July, [facility] [id number] [place] [address] 47389- 1311 July, Well woman exam Z01.419 and Vaginal discharge N89.8 [facility] [id number] [place] [address] 43183- 3448 Jun, [facility] [id number] [place] [address] 62879 -7106 Mar, [facility] [id number] [place] [address] 34813- 9235 May, Bipolar disorder, unspecified F31.9 [facility] [id number] [place] [address] 84525- 8391 May, Bipolar disorder, unspecified F31.9 ; Attention deficit hyperactivity disorder (ADHD), combined type F90.2 and Schizoaffective disorder F25.9 [facility] [id number] [place] [address] 00325- 0684 May, Bipolar disorder with depression F31.30 [facility] [id number] [place] [address] 55155- 4182 May, Bipolar disorder, unspecified F31.9 ; Attention deficit hyperactivity disorder (ADHD), combined type F90.2 and Schizoaffective disorder F25.9 [facility] [id number] [place] [address] 78683- 5257 Apr, Seasonal allergic rhinitis due to pollen J30.1 [facility] [id number] [place] [address] 44406- 6041 Apr, [facility] [id number] [place] [address] 07425- 7193 Mar, Attention deficit disorder (ADD) without 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 ; Bipolar disorder with depression F31.30 and Generalized anxiety disorder F41.1 [facility] [id number] [place] [address] 01045- 4617 Mar, [facility] [address] [place] [address]- 2765 Feb, Unspecified mood [affective] disorder F39 [facility] [id number] [place] [address] 54606- 9067 Feb, Unspecified mood [affective] disorder F39 [facility] [id number] [place] [address] 52699- 9486 Feb, [facility] [id number] [place] [address] 97603- 0829 Jan, Amenorrhea N91.2 ; Vitamin D deficiency E55.9 and Iron deficiency anemia due to chronic blood loss D50.0 [facility] [id number] [place] [address] 71742- 0839 Jan, Encounter for test Z32.00 [facility] [id number] [place] [address] 88410- 3709 Dec, Unspecified mood [affective] disorder F39 ; Bipolar disorder , unspecified F31.9 and Attention deficit hyperactivity disorder (ADHD), combined type F90.2 [facility] [id number] [place] [address] 97783- 8235 Nov, [facility] [id number] [place] [address] 12806- 8193 Nov, [facility] [id number] [place] [address] 97240- 0163 Nov, [facility] [id number] [place] [address] 77719- 8150 Nov, [facility] [id number] [place] [address] 54402- 8381 Nov, [facility] [id number] [place] [address] 30116 -0565 Nov, Dysuria R30.0 [facility] [id number] [place] [address] 95629- 4831 Oct, [facility] [address], [place] [address] 8412 Oct, [facility] [address], [place] [address]- 2221 Sep, [facility] [address], [place] [address]- 9690 Sep, Bipolar disorder, unspecified F31.9 and Schizoaffective disorder F25.9 [facility] [address], [place] [address]- 4703 Sep, [facility] [id number] [place] [address] 72871- 4421 Aug, Unspecified mood [affective] disorder F39 [place] [id number] [place] [address] 55640- 9321 Aug, [facility] [id number] [place] [address] 51311- 2076 Aug, General counseling and advice on female contraception Z30.09 and Iron deficiency anemia due to chronic blood loss D50.0 [facility] [address], [place] [address] 6168 July, Routine gynecological examination Z01.419 ; General counseling and advice on female contraception Z30.09 ; High risk medication use Z79.899 ; Other specified bacterial agents as the cause of diseases classified elsewhere B96.89 and Acute vaginitis N76.0 [facility] [id number], [place] [address]- 7120 July, Attention deficit hyperactivity disorder (ADHD), combined type F90.2 ; Bipolar disorder, unspecified F31.9 and Schizoaffective disorder F25.9 [facility] [id number], [place] [address] 1457 July, Unspecified mood [affective] disorder F39 [facility] [address], [place] [address]- 4234 July, [place] [id number] [place] [address] 72398- 9604 July, [facility] [id number] [place] [address] 26926- 5408 July, Low hemoglobin D64.9 [facility] [id number] [place] [address] 27138- 8435 July, [facility] [id number] [place] [address] 21738- 7755 July, General counselling and advice on contraception Z30.09 ; Pain in left knee M25.562 ; Pain in right knee M25.561 ; Chronic fatigue R53.82 and Vitamin D deficiency E55.9 [facility] [id number] [place] [address] 75274- 1741 Jun, Fatigue R53.83 [facility] [id number] [place] [address] 04813- 4873 Jun, Fatigue R53.83 ; Low hemoglobin D64.9 ; Long-term use of high-risk medication Z79.899 ; Sore throat J02.9 and Fever, low grade R50.9 [facility] [id number] [place] [address] 15195- 2124 Jun, Unspecified mood [affective] disorder F39 [facility] [id number] [place] [address] 08695- 7058 May, Unspecified mood [affective] disorder F39 [facility] [id number] [place] [address] 03136- 2322 May, [facility] [id number] [place] [address] 88414- 2447 May, Attention deficit hyperactivity disorder (ADHD), combined type F90.2 ; Bipolar disorder, unspecified F31.9 and Schizoaffective disorder F25.9 [facility] [id number] [place] [address] 75343- 0232 May, [facility] [address], [place] [address]- 9314 Apr, [facility] [id number] [place] [address] 76376- 1258 Apr, [facility] [address], [place] [address]- 4418 Apr, [facility] [id number] [place] [address] 42460- 2636 Apr, [facility] [id number] [place] [address] [id number] Apr, Ingestion of unknown drug T50.901A [facility] [address] [place] [address] 84220- 0703 Apr, [facility] [id number] [place] [address] 30805- 7580 Apr, Unspecified mood [affective] disorder F39 [facility] [id number] [place] [address] 08571- 3069 Apr, Unspecified mood [affective] disorder F39 [facility] [id number] [place] [address] 29285- 1436 Apr, Unspecified mood [affective] disorder F39 [facility] [address] [place] [address] 40659- 3865 Apr, 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 ; Attention deficit hyperactivity disorder (ADHD), combined type F90.2 ; Bipolar disorder, unspecified F31.9 and Schizoaffective disorder F25.9 [facility] [address] [place] [address] 21593- 2901 Mar, Unspecified mood [affective] disorder F39 [facility] [address] [id number] Mar, Menstrual period late N91.0 and High risk sexual behavior Z72.51 [facility] [address], [place] [address]- 5716 Mar, Unspecified mood [affective] disorder F39 [facility] [id number] [place] [address] 55174- 8949 Mar, Unspecified mood [affective] disorder F39 [facility] [id number] [place] [address] 54272- 6166 Mar, Unspecified mood [affective] disorder F39 [facility] [id number] [place] [address] 83600- 0306 Feb, [facility] [id number] [place] [address] 45846- 6411 Feb, Attention deficit hyperactivity disorder (ADHD), combined type F90.2 ; Episodic mood disorder 296.90 and Bipolar disorder, unspecified F31.9 [facility] [id number] [place] [address] 38195- 9457 Feb, Major depressive disorder, recurrent, moderate F33.1 [facility] [id number] [place] [address] 03187- 0453 Feb, Unspecified mood [affective] disorder F39 [facility] [id number] [place] [address] 50224- 1828 Feb, Unspecified mood [affective] disorder F39 [facility] [address], [place] [address]- 3827 Feb, [facility] [id number] [place] [address] 12565- 1253 Feb, Unspecified mood [affective] disorder F39 [facility] [id number] [place] [address] 09182- 8564 Feb, Bipolar disorder, unspecified F31.9 [facility] [address], [place] [address]- 5494 Jan, [facility] [id number] [place] [address] 38270- 8196 Jan, Unspecified mood [affective] disorder F39 [facility] [id number] [place] [address] 80358- 4216 Jan, Unspecified mood [affective] disorder F39 [facility] [id number] [place] [address] 30540- 9809 Jan, Bipolar disorder, unspecified F31.9 [facility] [id number] [place] [address] 80107- 5440 Jan, Attention deficit hyperactivity disorder (ADHD), combined type F90.2 and Bipolar disorder, unspecified F31.9 [facility] [id number] [place] [address] 27597- 5925 Jan, [facility] [id number] [place] [address] 10507- 6428 Jan, [facility] [id number] [place] [address] 04391- 2777 Jan, Unspecified mood [affective] disorder F39 [facility] [id number] [place] [address] 05179- 8090 Dec, Unspecified mood [affective] disorder F39 [facility] [id number] [place] [address] 07742- 4152 Dec, Unspecified mood [affective] disorder F39 [facility] [id number] [place] [address] 84644- 0182 Dec, Unspecified mood [affective] disorder F39 [facility] [address] [place] [address] 43391- 1342 Dec, [facility] [id number] [place] [address] 93647- 8246 Dec, Viral upper respiratory tract infection J06.9 ; Encounter for immunization Z23 and Smoker F17.200 [facility] [id number] [place] [address] 16382- 7063 Dec, [facility] [address], [place] [address]- 4412 Dec, Schizoaffective disorder F25.9 and Attention deficit hyperactivity disorder (ADHD), combined type F90.2 [facility] [address], [place] [address]- 2329 Nov, [facility] [id number] [place] [address] 03697- 8449 Nov, Unspecified mood [affective] disorder F39 [facility] [address] [place] [address] 36898- 5101 Nov, Schizoaffective disorder, unspecified 295.70 ; Generalized anxiety disorder 300.02 and Attention deficit disorder of childhood with hyperactivity 314.01 [facility] [address] [place] [address] 73488- 1042 Oct, [facility] [address] [place] [address] 50350- 5753 Oct, [facility] [address] [place] [address] 43477- 2373 Oct, [facility] [address] [place] [address] 92495- 7934 Oct, Affective disorder 296.90 [facility] [address] [place] [address] 82219- 6877 Oct, Screen for STD (sexually transmitted disease) V74.5 and Encounter for counseling regarding contraception V25.09 [facility] [address], [place] [address]- 1768 Sep, [facility] [address] [place] [address] 42458- 9122 Sep, [facility] [address], [place] [address]- 9099 Sep, Episodic mood disorder 296.90 [facility] [address], [place] [address]- 4362 Sep, [facility] [address] [place] [address]- 2170 Sep, [facility] [address], [place] [address]- 2335 Aug, [facility] [address], [place] [address]- 4570 Aug, [facility] [address], [place] [address]- 6000 Aug, [facility] [address] [place] [address] 41361- 9000 Aug, Episodic mood disorder 296.90 [facility] [address], [place] [address]- 8407 Aug, [facility] [id number], [place] [address]- 1577 July, Allergic rhinitis 477.9 [facility] [address] [place] [address]- 0808 July, Schizoaffective disorder, unspecified 295.70 [facility] [address], [place] [address]- 6163 July, [facility] [address], [place] [address]- 3965 Jun, [facility] [address], [place] [address]- 6286 Jun, [facility] [address], [place] [address]- 3844 May, [facility] [id number] 3369 May, [facility] [address] [place] [address]- 2678 May, [facility] [address] [facility] [id number] [place] [address]- 7204 May, [facility] [place] [facility] [address] [id number] [place] [address]- 2928 Apr, 2014 [facility] [place] [facility] [address] [id number] [place] [address]- 5150 Apr, 2014 [facility] [place] [facility] [address] [id number] [place] [address]- 8575 Apr, 2014 [facility] [place] [facility] [address] [id number] [place] [address]- 4196 Apr, 2014 [facility] [place] [facility] [address] [id number] [place] [address]- 7096 Apr, [facility] [place] [facility] [address] [facility] [id number] [place] 7900 Apr, [facility] [place] [facility] [address] [facility] [id number] [place] [address]- 2625 Apr, [facility] [place] [facility] [address] [facility] [id number] [place] [address]- 4959 Apr, [facility] [place] [facility] [address] [facility] [id number] [place] [address]- 9368 Mar, [facility] [place] [facility] [address] [facility] [id number] [place] [address]- 6332 Mar, [facility] [place] [facility] [address] [id number], [place] [address]- 9621 Mar, [facility] [place] [facility] [address] [id number] [place] [address]- 5659 Mar, [facility] [place] [facility] [address] [facility] [id number] [place] [address]- 6954 Feb, [facility] [place] [facility] [address] [facility] [id number] [place] [address]- 9281 Feb, [facility] [place] [facility] [address] [facility] [id number], [place] [address]- 7506 Feb, [facility] [place] [facility] [address] [id number] [place] [address]- 1690 30 Feb, 2014 [facility] [place] [facility] [address] [id number] [place] 9155 Feb, [facility] [place] [facility] [address] [id number] [place] [address]- 0810 Feb, [facility] [place] [facility] [address] [id number] [place] [address]- 7840 Feb, [facility] [place] [facility] [address] [id number] [place] [address]- 8621 Feb, [facility] [place] [facility] [address] [id number] [place] [address]- 6576 Feb, [facility] [place] [facility] [address] [facility] [id number] [place] [address]- 0692 Feb, [facility] [place] [facility] [address] [id number] [place] [address]- 2922 Feb, [facility] [place] [facility] [address] [id number] [place] [address]- 0019 Jan, [facility] [place] [facility] [address] [id number] [place] [address]- 6194 Jan, [facility] [place] [facility] [address] [id number], [place] [address]- 8366 Dec, [facility] [place] [facility] [address] [id number], [place] [address]- 6427 Dec, [facility] [place] [facility] [address] [id number] [place] [address]- 8658 Dec, [facility] [place] [facility] [address] [id number], [place] [address]- 7110 Dec, [facility] [place] [facility] [address] [id number] [place] [address]- 6934 Dec, [facility] [place] [facility] [address] [id number] [place] [address]- 7007 Dec, 2013 [facility] [place] [facility] [address] [id number] [place] [address]- 6055 Dec, 2013 [facility] [place] [facility] [address] [id number] [place] [address]- 0096 Dec, 2013 [facility] [place] [facility] [address] [id number] [place] [address]- 0450 Dec, 2013 [facility] [place] [facility] [address] [id number] [place] [address]- 4502 Dec, 2013 [facility] [place] [facility] [address] [id number] [place] [address]- 4165 Dec, 2013 [facility] [place] [facility] [address] [id number] [place] [address]- 9037 Dec, 2013 [facility] [place] [facility] [address] [id number] [place] [address]- 9802 Dec, 2013 [facility] [place] [facility] [address] [id number] [place] [address]- 0563 Dec, 2013 [facility] [place] [facility] [address] [id number] [place] [address]- 3309 Dec, 2013 [facility] [place] [facility] [address] [id number] [place] [address]- 6707 Dec, 2013 [facility] [place] [facility] [address] [id number] [place] [address]- 0579 Dec, 2013 [facility] [place] [facility] [address] [id number] [place] [address] Dec, 2013 [facility] [place] [facility] [address] [id number] [place] [address] Dec, 2013 [facility] [place] [facility] [address] [id number] [place] [address] Dec, 2013 [facility] [place] [facility] [address] [id number] [place] [address] Dec, [facility] [place] [facility] [address] [id number] [place] [address] Dec, [facility] [place] [facility] [address] [id number] [place] [address] Dec, [facility] [place] [facility] [address] [id number] [place] [address] Dec, [facility] [place] [facility] [address] [id number] [place] [address] Nov, 2013 [facility] [place] [facility] [address] [id number] [place] [address] Nov, [facility] [place] [facility] [address] [id number] [place] [address] Nov, 2013 [facility] [place] [facility] [address] [id number] [place] [address] Nov, 2013 [facility] [place] [facility] [address] [id number] [place] [address] Nov, 2013 [facility] [place] [facility] [address] [id number] [place] [address] Nov, 2013 [facility] [place] [facility] [address] [id number] [place] [address] 17 Nov, 2013 [facility] [place] [facility] [address] [id number], [place] [address] 17 Nov, 2013 [facility] [place] [facility] [address] [id number], [place] [address] 15 Nov, 2013 [facility] [place] [facility] [address] [id number] [place] [address] 15 Nov, 2013 [facility] [place] [facility] [address] [id number] [place] [address] Nov, 2013 [facility] [place] [facility] [address] [id number] [place] [address] Nov, 2013 [facility] [place] [facility] [address] [id number] [place] [address] Nov, [facility] [place] [facility] [address] [id number] [place] [address] Nov, [facility] [place] [facility] [address] [id number] [place] [address] Oct, [facility] [place] [facility] [address] [id number] [place] [address] Oct, [facility] [place] [facility] [address] [id number] [place] [address] Oct, [facility] [place] [facility] [address] [id number] [place] [address] Oct, [facility] [place] [facility] [address] [id number] [place] [address] Oct, [facility] [place] [facility] [address] [id number] [place] [address] Oct, [facility] [place] [facility] [address] [id number] [place] [address] Oct, [facility] [place] [facility] [address] [id number] [place] [address] Oct, [facility] [place] [facility] [address] [id number] [place] [address] Sep, [facility] [place] [facility] [address] [id number] [place] [address] Sep, [facility] [place] [facility] [address] [id number] [place] [address] Sep, [facility] [place] [facility] [address] [id number] [place] [address] Sep, [facility] [place] [facility] [address] [id number] [place] [address] 39[address] Sep, [facility] [place] [facility] [address] [id number] [place] [address] 4816 Sep, [facility] [place] [facility] [address] [id number] [place] [address] 4730 Aug, [facility] [place] [facility] [address] [id number] [place] [address] 4982 Aug, [facility] [place] [facility] [address] [id number] [place] [address] July, [facility] [place] [facility] [address] [id number] [place] [address] July, [facility] [place] [facility] [address] [id number] [place] [address] July, [facility] [place] [facility] [address] [id number] [place] [address] 49[address] July, [facility] [place] [facility] [address] [id number] [place] [address] 07[address] July, [facility] [place] [facility] [address] [id number] [place] [address]- 2481 July, [facility] [place] [facility] [address] [id number] [place] [address]- 2569 July, [facility] [place] [facility] [address] [id number] [place] [address] 1768 July, [facility] [place] [facility] [address] [id number] [place] [address] 1011 July, [facility] [place] [facility] [address] [id number] [place] [address] 6314 July, [facility] [place] [facility] [address] [id number] [place] [address]- 5090 July, [facility] [place] [facility] [address] [id number] [place] [address] 5262 July, [facility] [place] [facility] [address] [id number] [place] [address] July, [facility] [place] [facility] [address] [id number] [place] [address]- 9355 July, [facility] [place] [facility] [address] [id number] [place] [address]- 2823 July, [facility] [place] [facility] [address] [id number] [place] [address]- 6850 July, [facility] [place] [facility] [address] [id number] [place] [address]- 5529 July, [facility] [place] [facility] [address] [id number] [place] [address]- 4649 July, [facility] [place] [facility] [address] [id number] [place] [address] 1961 Jun, [facility] [place] [facility] [address] [id number] [place] [address]- 9752 Jun, [facility] [place] [facility] [address] [id number] [place] [address]- 1509 Jun, [facility] [place] [facility] [address] [id number] [place] [address]- 5939 Jun, [facility] [place] [facility] [address] [id number] [place] [address]- 3025 Jun, [facility] [place] [facility] [address] [id number] [place] [address]- 4872 Jun, [facility] [place] [facility] [address] [id number] [place] [address]- 4106 Jun, [facility] [place] [facility] [address] [id number] [place] [address]- 8888 Jun, [facility] [place] [facility] [address] [id number] [place] [address]- 7610 Jun, [facility] [place] [facility] [address] [id number] [place] [address]- 8910 Jun, [facility] [place] [facility] [address] [id number] [place] [address]- 3191 Jun, [facility] [place] [facility] [address] [id number] [place] [address]- [address]17 08 Jun, 2013 [facility] [place] [facility] [address] [id number] [place] [address]- 2594 May, [facility] [place] [facility] [address] [id number] [place] [address]- 9746 May, [facility] [place] [facility] [address] [id number] [place] [address]- 8866 May, [facility] [place] [facility] [address] [id number] [place] [address]- 2848 May, [facility] [place] [facility] [address] [id number] [place] [address]- 6593 May, [facility] [place] [facility] [address] [id number] [place] [address]- 0510 May, [facility] [place] [facility] [address] [id number] [place] [address]- 1846 May, [facility] [place] [facility] [address] [id number] [place] [address]- 4412 May, [facility] [place] [facility] [address] [id number] [place] [address]- 2054 May, [facility] [place] [facility] [address] [id number] [place] [address]- 0751 May, [facility] [place] [facility] [address] [id number] [place] [address] 1973 Apr, [facility] [place] [facility] [address] [id number] [place] [address]- 2462 Apr, [facility] [place] [facility] [address] [id number] [place] [address]- 4981 Apr, [facility] [place] [facility] [address] [id number] [place] [address]- 3383 Apr, [facility] [place] [facility] [address] [id number] [place] [address]- 0080 Apr, [facility] [place] [facility] [address] [id number] [place] [address]- 7825 Apr, [facility] [place] [facility] [address] [id number] [place] [address]- 6886 Apr, [facility] [place] [facility] [address] [facility] [id number] [place] [address]- 4415 Apr, [facility] [place] [facility] [address] [id number] [place] [address]- 1803 Apr, [facility] [place] [facility] [address] [id number] [place] [address]- 5528 Apr, [facility] [place] [facility] [address] [facility] [id number] [place] [address]- 0553 Apr, [facility] [place] [facility] [address] [facility] [id number] [place] [address]- 4459 Apr, [facility] [place] [facility] [address] [facility] [id number] [place] [address]- 6855 Apr, [facility] [place] [facility] [address] [facility] [id number] [place] [address]- 5457 Apr, [facility] [place] [facility] [address] [facility] [id number] [place] [address]- 8299 Mar, [facility] [place] [facility] [address] [facility] [id number] [place] [address]- 9104 Mar, [facility] [place] [facility] [address] [id number] [place] [address]- 9540 Mar, [facility] [place] [facility] [address] [id number] [place] [address]- 5538 Mar, [facility] [place] [facility] [address] [facility] [id number] [place] [address]- 1460 Mar, [facility] [place] [facility] [address] [facility] [id number] [place] [address]- 5570 Mar, [facility] [place] [facility] [address] [id number] [place] [address]- 3954 Mar, [facility] [place] [facility] [address] [id number] [place] [address]- 4203 Mar, [facility] [place] [facility] [address] [id number] [place] [address]- 7696 Mar, [facility] [place] [facility] [address] [id number] [place] [address]- 2294 Mar, [facility] [place] [facility] [address] [id number] [place] [address]- 7495 Mar, [facility] [place] [facility] [address] [id number] [place] [address]- 6494 Mar, [facility] [place] [facility] [address] [id number] [place] [address]- 2525 Feb, [facility] [place] [facility] [address] [id number] [place] [address]- 9306 Feb, [facility] [place] [facility] [address] [id number] [place] Feb, [facility] [place] [facility] [address] [id number] [place] [address]- 4029 Feb, [facility] [place] [facility] [address] [id number] [place] [address]- 4754 Feb, [facility] [place] [facility] [address] [id number] [place] [address]- 9584 Feb, [facility] [place] [facility] [address] [id number] [place] [address]- 9971 Feb, [facility] [place] [facility] [address] [id number] [place] [address]- 6396 Feb, [facility] [place] [facility] [address] [id number] [place] [address]- 6726 Feb, [facility] [place] [facility] [address] [id number] [place] [address]- 7581 Feb, [facility] [place] [facility] [address] [id number] [place] [address]- 1783 Feb, [facility] [place] [facility] [address] [id number] [place] [address]- 3648 Jan, [facility] [place] [facility] [address] [id number] [place] [address]- 2649 Jan, [facility] [place] [facility] [address] [id number] [place] [address]- 8379 Jan, [facility] [place] [facility] [address] [id number] [place] [address]- 2739 Jan, [facility] [place] [facility] [address] [id number] [place] [address]- 8156 Jan, [facility] [place] [facility] [address] [id number] [place] [address]- 1691 Jan, [facility] [place] [facility] [address] [id number], [place] [address]- 9095 Jan, [facility] [place] [facility] [address] [id number] [place] [address]- 4424 Dec, [facility] [place] [facility] [address] [id number], [place] [address]- 4687 Dec, [facility] [place] [facility] [address] [id number], [place] [address]- 6639 Dec, [facility] [place] [facility] [address] [id number], [place] [address]- [address]277 10 Dec, 2012 [facility] [place] [facility] [address] [id number], [place] [address]- 3380 Dec, [facility] [place] [facility] [address] [id number], [place] [address]- [address] 18 Nov, 2012 [facility] [place] [facility] [address] [id number], [place] [address]- 3854 Oct, [facility] [place] [facility] [address] [id number] [place] [address]- 1204 Oct, [facility] [address] [id number] [place] [address]- 3193 Oct, [facility] [place] [facility] [address] [id number] [place] [address]- 3871 Oct, [facility] [place] [facility] [address] [id number] [place] [address]- 8804 Oct, [facility] [place] [facility] [address] [id number] [place] [address]- 1804 Sep, [facility] [place] [facility] [address] [id number] [place] [address]- 8403 Sep, [facility] [place] [facility] [address] [id number] [place] [address]- 3633 Sep, [facility] [address] [id number] [place] [address]- 3130 Sep, [facility] [place] [facility] [address] [id number] [place] [address]- 6452 Aug, [facility] [place] [facility] [address] [id number] [place] [address]- 9329 Aug, [facility] [place] [facility] [address] [id number] [place] [address]- 3934 Aug, [facility] [place] [facility] [address] [id number] [place] [address]- 7819 Aug, [facility] [place] [facility] [address] [id number] [place] [address]- 0563 Aug, [facility] [place] [facility] [address] [id number] [place] [address]- 8943 July, [facility] [place] [facility] [address] [id number] [id number] [address] July, [facility] [place] [facility] [address] [id number] [place] [address]- 4949 July, [facility] [place] [facility] [address] [id number] [place] [address]- 9700 July, [facility] [address] [id number] [place] [address]- 6630 Jun, [facility] [address] [id number] [place] [address]- 8966 Jun, [facility] [address] [id number] [place] [address]- 4605 May, [facility] [address] [id number] [place] [address]- 8311 May, [facility] [address] [id number] [place] [address]- 1209 Apr, [facility] [address] [id number] [place] [address]- 2219 Apr, [facility] [address] [id number] [place] [address]- 1393 Mar, [facility] [address] [id number] [place] [address]- 3013 Mar, [facility] [address] [id number] [place] [address]- 2499 Feb, [facility] [address] [id number] [place] [address]- 2362 Feb, [facility] [address] [id number] [place] [address]- 4045 Feb, [facility] [place] [facility] [address] [id number] [place] [address]- 8727 Feb, [facility] [place] [facility] [address] [id number] [place] [address]- 2676 Feb, [facility] [place] [facility] [address] [id number] [place] [address]- 6606 Feb, [facility] [address] [id number], [place] [address]- 9308 Jan, [facility] [place] [facility] [address] [id number] [place] [address]- 2406 Jan, [facility] [place] [facility] [address] [id number] [place] [address]- 0216 Jan, [facility] [place] [facility] [address] [id number] [place] [address]- 5647 Jan, [facility] [place] [facility] [address] [id number] [place] [address]- 8171 Dec, [facility] [place] [facility] [address] [id number] [place] [address] Dec, [facility] [place] [facility] [address] [id number] [place]85 Nov, [facility] [place] [facility] [address] [id number] [place] [address]- 5341 Nov, [facility] [place] [facility] [address] [id number] [place] [address]- 9841 Nov, [facility] [place] [facility] [address] [id number] [place] [address]- 9031 Oct, [facility] [place] [facility] [address] [id number] [place] [address]- 3476 Sep, [facility] [place] [facility] [address] [id number], [place] [address]- 9827 Aug, [facility] [place] [facility] [address] [id number] [place] [address]- 3296 July, [facility] [place] [facility] [address] [id number] [place] [address]- 5494 July, [facility] [place] [facility] [address] [id number] [place] [address]- 4240 July, [facility] [place] [facility] [address] [id number] [place] [address]- 8799 July, [facility] [place] [facility] [address] [id number] [place] [address]- 1893 July, [facility] [address] [id number] [place] [address]- 6157 25 Jun, 2011 [facility] [place] [facility] [address] [id number] [place] [address]- 0376 29 May, 2011 [facility] [place] [facility] [address] [id number] [place] [address]- 6656 29 May, 2011 [facility] [place] [facility] [address] [id number] [place] [address]- 6577 14 May, 2011 [facility] [place] [facility] [address] [id number] [place] [address]- 9806 28 Apr, 2011 [facility] [place] [facility] [address] [id number] [place] [address]- 2469 20 Apr, 2011 [facility] [place] [facility] [address] [id number] [place] [address]- 3561 16 Mar, 2011 [facility] [address] [id number] [place] 16 Feb, 2011 [facility] [place] [facility] [address] [id number] [place] [address]- 5268 16 Feb, 2011 [facility] [place] [facility] [address] [id number] [place]00 16 Feb, 2011 [facility] [place] [facility] [address] [id number] [place] [address]- 9517 15 Feb, 2011 [facility] [place] [facility] [address] [id number] [place] [address] 2549 14 Feb, 2011 [facility] [place] [facility] [address] [id number] [place] [address]- 3606 14 Feb, 2011 [facility] [place] [facility] [address] [id number] [place] [address]- 4036 14 Feb, 2011 [facility] [place] [facility] [address] [id number] [place] [address]- 2647 Jan, [facility] [address] [id number], [place] [address]- 7019 Jan, [facility] [address] [facility] [id number], [place] [address]- 5116 Jan, [facility] [address] [id number], [place] [address]- 2499 Aug, [facility] [id number], [place] [address]- 6365 Feb, [facility] [id number], [place] [address]- 8510 Feb, [facility] [id number], [place] [address]- 1806 Feb, [facility] [id number], [place] [address]- 6597 Dec, [facility] [id number], [place] [address]- 4209 Jun, [facility] [address] [id number], [place] [address]- 7434 Dec, [facility] [address] [id number], [place] [address]- 8315 Sep, IMMUNIZATIONS No Known Immunizations SOCIAL HISTORY Never Assessed REASON FOR VISIT PLAN OF CARE VITAL SIGNS MEDICATIONS Unknown Medications RESULTS No Results PROCEDURES No Known procedures INSTRUCTIONS MEDICATIONS ADMINISTERED [...] disorder of childhood with hyperactivity Hospitalization History [facility] Mental Breakdown 05/2015 Hospitalization History Overdose VC 07/17/15
--- OUTSIDE RECORDS SUMMARY | 2018-04-11 16:21 | XMS REPORT ---
Author Author REBECCA CONN [facility] Address [address] [place] [address] Care Team Providers Care Associate Faculty Name Role Phone REBECCA CONN Unavailable PROBLEMS Type Condition ICD9-CM Code [id number] Code Onset Dates Condition Status SNOMED Code Problem Unspecified mood [affective] disorder F39 Active 399543922 Problem Attention deficit hyperactivity disorder (ADHD), combined type F90.2 Active 230667960 Problem Bipolar disorder, unspecified F31.9 Active 05259867 Problem Well woman exam Z01.419 Active 229095026 Problem Schizoaffective disorder F25.9 Active 72988201 Problem Generalized anxiety disorder F41.1 Active 39870233 Problem Amenorrhea N91.2 Active 64136121 Problem Seasonal allergic rhinitis due to pollen J30.1 Active 34266638 Problem Bipolar disorder with depression F31.30 Active 26311292 Problem Chronic fatigue R53.82 Active 03370687 Problem Pain in left knee M25.562 Active 60239349 Problem Long-term use of high-risk medication Z79.899 Active 955043710 Problem Low hemoglobin D64.9 Active 860061474 Problem Routine gynecological examination Z01.419 Active 924766406 Problem High risk medication use Z79.899 Active 465967246 Problem Pain in right knee M25.561 Active 68696954 Problem General counseling and advice on female contraception Z30.09 Active 20464689 Problem Vitamin D deficiency E55.9 Active 06641965 Problem Iron deficiency anemia due to chronic blood loss D50.0 Active 42368613 ALLERGIES No Information ENCOUNTERS Encounter Location Date Diagnosis [facility] [address] [facility] [id number] [address] July, [facility] [address] [id number], [place] [address] 2895 July, [facility] [id number] [place] [address] 81081- 5012 July, Well woman exam Z01.419 and Vaginal discharge N89.8 [facility] [id number] [place] [address] 15106- 7558 Jun, [facility] [id number] [place] [address] 27566 -3713 Mar, [facility] [id number] [place] [address] 65706- 0436 May, Bipolar disorder, unspecified F31.9 [facility] [id number] [place] [address] 58576- 9026 May, Bipolar disorder, unspecified F31.9 ; Attention deficit hyperactivity disorder (ADHD), combined type F90.2 and Schizoaffective disorder F25.9 [facility] [id number] [place] [address] 22033- 6040 May, Bipolar disorder with depression F31.30 [facility] [id number] [place] [address] 55984- 3007 May, Bipolar disorder, unspecified F31.9 ; Attention deficit hyperactivity disorder (ADHD), combined type F90.2 and Schizoaffective disorder F25.9 [facility] [facility] [id number] [place] [address] 94644- 5210 Apr, Seasonal allergic rhinitis due to pollen J30.1 [facility] [id number] [place] [address] 43340- 9873 Apr, [facility] [id number] [place] [address] 60966- 0534 Mar, Attention deficit disorder (ADD) without 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 ; Bipolar disorder with depression F31.30 and Generalized anxiety disorder F41.1 [facility] [id number] [place] [address] 65759- 7449 Mar, [place] [address] [place] [address]- 8719 Feb, Unspecified mood [affective] disorder F39 [facility] [id number] [place] [address] 37431- 8990 Feb, Unspecified mood [affective] disorder F39 [facility] [id number] [place] [address] 81357- 5319 Feb, [facility] [id number] [place] [address] 84567- 0875 Jan, Amenorrhea N91.2 ; Vitamin D deficiency E55.9 and Iron deficiency anemia due to chronic blood loss D50.0 [facility] [id number] [place] [address] 15776- 0728 Jan, Encounter for test Z32.00 [facility] [id number] [place] [address] 36626- 3966 Dec, Unspecified mood [affective] disorder F39 ; Bipolar disorder , unspecified F31.9 and Attention deficit hyperactivity disorder (ADHD), combined type F90.2 [facility] [id number] [place] [address] 49361- 9835 Nov, [facility] [id number] [place] [address] 46004- 6042 Nov, [facility] [id number] [place] [address] 48889- 5887 Nov, [facility] [id number] [place] [address] 04095- 7136 Nov, [facility] [id number] [place] [address] 43407- 8474 Nov, [facility] [id number] [place] [address] 06488 -1933 Nov, Dysuria R30.0 [facility] [id number] [place] [address] 86074- 3697 Oct, [facility] [address], [place] [address] 7156 Oct, [facility] [address], [place] [address]- 3792 Sep, [facility] [address], [place] [address]- 4340 Sep, Bipolar disorder, unspecified F31.9 and Schizoaffective disorder F25.9 [facility] [address], [place] [address]- 8583 Sep, [facility] [id number] [place] [address] 35045- 7004 Aug, Unspecified mood [affective] disorder F39 [facility] [id number] [place] [address] 11745- 4479 Aug, [facility] [id number] [place] [address] 00879- 2924 Aug, General counseling and advice on female contraception Z30.09 and Iron deficiency anemia due to chronic blood loss D50.0 [place] [address], [place] [address] 2664 July, Routine gynecological examination Z01.419 ; General counseling and advice on female contraception Z30.09 ; High risk medication use Z79.899 ; Other specified bacterial agents as the cause of diseases classified elsewhere B96.89 and Acute vaginitis N76.0 [facility] [address] [id number], [place] [address] 3318 July, Attention deficit hyperactivity disorder (ADHD), combined type F90.2 ; Bipolar disorder, unspecified F31.9 and Schizoaffective disorder F25.9 [facility] [address] [id number], [place] [address]- 9827 July, Unspecified mood [affective] disorder F39 [facility] [address], [place] [address]- 5924 July, [place] [id number] [place] [address] 25343- 8477 July, [facility] [facility] [id number] [place] [address] 66846- 7506 July, Low hemoglobin D64.9 [facility] [facility] [id number] [place] [address] 92712- 5714 July, [facility] [facility] [id number] [place] [address] 27950- 2096 July, General counselling and advice on contraception Z30.09 ; Pain in left knee M25.562 ; Pain in right knee M25.561 ; Chronic fatigue R53.82 and Vitamin D deficiency E55.9 [facility] [id number] [place] [address] 99176- 3757 Jun, Fatigue R53.83 [facility] [id number] [place] [address] 68742- 9000 Jun, Fatigue R53.83 ; Low hemoglobin D64.9 ; Long-term use of high-risk medication Z79.899 ; Sore throat J02.9 and Fever, low grade R50.9 [place] [id number] [place] [address] 93739- 9711 Jun, Unspecified mood [affective] disorder F39 [facility] [facility] [id number] [place] [address] 02712- 9891 May, Unspecified mood [affective] disorder F39 [facility] [id number] [place] [address] 13349- 6789 May, [place] [id number] [place] [address] 99993- 1502 May, Attention deficit hyperactivity disorder (ADHD), combined type F90.2 ; Bipolar disorder, unspecified F31.9 and Schizoaffective disorder F25.9 [place] [id number] [place] [address] 40514- 8083 May, [facility] [address], [place] [address]- 4582 Apr, [facility] [id number] [place] [address] 58237- 1955 Apr, [facility] [address], [place] [address]- 3272 Apr, [facility] [id number] [place] [address] 99118- 5815 Apr, [facility] [address] [place] [address] [id number] Apr, Ingestion of unknown drug T50.901A [facility] [id number] [place] [address] 97652- 9452 Apr, [facility] [id number] [place] [address] 87873- 4944 Apr, Unspecified mood [affective] disorder F39 [facility] [address] [place] [address] 37867- 0329 Apr, Unspecified mood [affective] disorder F39 [facility] [address] [place] [address] 96607- 0949 Apr, Unspecified mood [affective] disorder F39 [facility] [address] [place] [address] 43880- 5826 Apr, 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 ; Attention deficit hyperactivity disorder (ADHD), combined type F90.2 ; Bipolar disorder, unspecified F31.9 and Schizoaffective disorder F25.9 [facility] [address] [place] [address] 17664- 4298 Mar, Unspecified mood [affective] disorder F39 [facility] [place] [address] [id number] Mar, Menstrual period late N91.0 and High risk sexual behavior Z72.51 [facility] [address], [place] [address]- 7949 Mar, Unspecified mood [affective] disorder F39 [facility] [id number] [place] [address] 00270- 9222 Mar, Unspecified mood [affective] disorder F39 [facility] [address] [place] [address] 99681- 2820 Mar, Unspecified mood [affective] disorder F39 [facility] [id number] [place] [address] 79592- 1575 Feb, [facility] [id number] [place] [address] 86652- 7502 Feb, Attention deficit hyperactivity disorder (ADHD), combined type F90.2 ; Episodic mood disorder 296.90 and Bipolar disorder, unspecified F31.9 [facility] [id number] [place] [address] 74868- 7831 Feb, Major depressive disorder, recurrent, moderate F33.1 [facility] [address] [place] [address] 90707- 3879 Feb, Unspecified mood [affective] disorder F39 [facility] [address] [place] [address] 38440- 0032 Feb, Unspecified mood [affective] disorder F39 [facility] [address], [place] [address]- 9307 Feb, [facility] [address] [place] [address] 18572- 8207 Feb, Unspecified mood [affective] disorder F39 [facility] [id number] [place] [address] 16141- 9292 Feb, Bipolar disorder, unspecified F31.9 [facility] [address], [place] [address]- 6946 Jan, [facility] [id number] [place] [address] 48433- 0309 Jan, Unspecified mood [affective] disorder F39 [facility] [id number] [place] [address] 12753- 1406 Jan, Unspecified mood [affective] disorder F39 [facility] [id number] [place] [address] 89596- 8927 Jan, Bipolar disorder, unspecified F31.9 [facility] [id number] [place] [address] 18949- 3199 Jan, Attention deficit hyperactivity disorder (ADHD), combined type F90.2 and Bipolar disorder, unspecified F31.9 [facility] [id number] [place] [address] 02996- 8849 Jan, [facility] [id number] [place] [address] 63626- 0117 Jan, [facility] [id number] [place] [address] 70201- 1190 Jan, Unspecified mood [affective] disorder F39 [facility] [id number] [place] [address] 35955- 6015 Dec, Unspecified mood [affective] disorder F39 [facility] [id number] [place] [address] 41495- 4708 Dec, Unspecified mood [affective] disorder F39 [facility] [id number] [place] [address] 59685- 2517 Dec, Unspecified mood [affective] disorder F39 [facility] [address] [place] [address] 73547- 9831 Dec, [facility] [id number] [place] [address] 33848- 5157 Dec, Viral upper respiratory tract infection J06.9 ; Encounter for immunization Z23 and Smoker F17.200 [facility] [id number] [place] [address] 27201- 9404 Dec, [facility] [address], [place] [address]- 2017 Dec, Schizoaffective disorder F25.9 and Attention deficit hyperactivity disorder (ADHD), combined type F90.2 [facility] [address], [place] [address]- 2772 Nov, [facility] [id number] [place] [address] 92954- 9916 Nov, Unspecified mood [affective] disorder F39 [facility] [address] [place] [address] 30773- 9731 Nov, Schizoaffective disorder, unspecified 295.70 ; Generalized anxiety disorder 300.02 and Attention deficit disorder of childhood with hyperactivity 314.01 [facility] [address] [place] [address] 31554- 7227 Oct, [facility] [address] [place] [address] 13379- 6623 Oct, [facility] [address] [place] [address] 19668- 4724 Oct, [facility] [address] [place] [address] 90549- 3962 Oct, Affective disorder 296.90 [facility] [address] [place] [address] 79901- 8331 Oct, Screen for STD (sexually transmitted disease) V74.5 and Encounter for counseling regarding contraception V25.09 [facility] [address], [place] [address]- 5530 Sep, [facility] [address] [place] [address] 96131- 0561 Sep, [facility] [address], [place] [address]- 0607 Sep, Episodic mood disorder 296.90 [facility] [address], [place] [address]- 7868 Sep, [facility] [address] [place] [address]- 9652 Sep, [facility] [address], [place] [address]- 3296 Aug, [facility] [address], [place] [address]- 5117 Aug, [facility] [address], [place] [address]- 6595 Aug, [facility] [address] [place] [address] 29597- 3245 Aug, Episodic mood disorder 296.90 [facility] [address], [place] [address]- 0279 Aug, [facility] [id number], [place] [address]- 5910 July, Allergic rhinitis 477.9 [facility] [address] [place] [address]- 7833 July, Schizoaffective disorder, unspecified 295.70 [facility] [address], [place] [address]- 6916 July, [facility] [address], [place] [address]- 9059 Jun, [facility] [address], [place] [address]- 7720 Jun, [facility] [address], [place] [address]- 0139 May, [facility] [id number] [address] 1043 May, [facility] [address] [place] [address]- 2126 May, [facility] [address] [facility] [id number] [place] [address]- 1305 May, [facility] [place] [facility] [address] [id number] [place] [address]- 9425 Apr, 2014 [facility] [place] [facility] [address] [id number] [place] [address]- 1740 Apr, 2014 [facility] [place] [facility] [address] [id number] [place] [address]- 7971 Apr, 2014 [facility] [place] [facility] [address] [id number] [place] [address]- 0523 Apr, 2014 [facility] [place] [facility] [address] [id number] [place] [address]- 6332 Apr, [facility] [place] [facility] [address] [facility] [id number] [place] 2972 Apr, [facility] [place] [facility] [address] [facility] [id number] [place] [address]- 5913 Apr, [facility] [place] [facility] [address] [facility] [id number] [place] [address]- 4071 Apr, [facility] [place] [facility] [address] [facility] [id number] [place] [address]- 2928 Mar, [facility] [place] [facility] [address] [facility] [id number] [place] [address]- 2358 Mar, [facility] [place] [facility] [address] [id number], [place] [address]- 5288 Mar, [facility] [place] [facility] [address] [id number] [place] [address]- 0997 Mar, [facility] [place] [facility] [address] [facility] [id number] [place] [address]- 4551 Feb, [facility] [place] [facility] [address] [facility] [id number] [place] [address]- 4193 Feb, [facility] [place] [facility] [address] [facility] [id number], [place] [address]- 7978 Feb, [facility] [place] [facility] [address] [id number] [place] [address]- 2737 30 Feb, 2014 [facility] [place] [facility] [address] [id number] [place]- 5662 Feb, [facility] [place] [facility] [address] [id number] [place] [address]- 3589 Feb, [facility] [place] [facility] [address] [id number] [place] [address]- 9733 Feb, [facility] [place] [facility] [address] [id number] [place] [address]- 5321 Feb, [facility] [place] [facility] [address] [id number] [place] [address]- 6118 Feb, [facility] [place] [facility] [address] [facility] [id number] [place] [address]- 1051 Feb, [facility] [place] [facility] [address] [id number] [place] [address]- 2083 Feb, [facility] [place] [facility] [address] [id number] [place] [address]- 4820 Jan, [facility] [place] [facility] [address] [id number] [place] [address]- 0397 Jan, [facility] [place] [facility] [address] [id number], [place] [address]- 2289 Dec, [facility] [place] [facility] [address] [id number], [place] [address]- 3973 Dec, [facility] [place] [facility] [address] [id number] [place] [address]- 1417 Dec, [facility] [place] [facility] [address] [id number], [place] [address]- 4835 Dec, [facility] [place] [facility] [address] [id number] [place] [address]- 0674 Dec, [facility] [place] [facility] [address] [id number] [place] [address]- 2273 Dec, 2013 [facility] [place] [facility] [address] [id number] [place] [address]- 6115 Dec, 2013 [facility] [place] [facility] [address] [id number] [place] [address]- 5772 Dec, 2013 [facility] [place] [facility] [address] [id number] [place] [address]- 3722 Dec, 2013 [facility] [place] [facility] [address] [id number] [place] [address] Dec, 2013 [facility] [place] [facility] [address] [id number] [place] [address] Dec, 2013 [facility] [place] [facility] [address] [id number] [place] [address] Dec, 2013 [facility] [place] [facility] [address] [id number] [place] [address] Dec, 2013 [facility] [place] [facility] [address] [id number] [place] [address] Dec, 2013 [facility] [place] [facility] [address] [id number] [place] [address] Dec, 2013 [facility] [place] [facility] [address] [id number] [place] [address] Dec, 2013 [facility] [place] [facility] [address] [id number] [place] [address]- [address] Dec, 2013 [facility] [place] [facility] [address] [id number] [place] [address]- [address] Dec, 2013 [facility] [place] [facility] [address] [id number] [place] [address] Dec, 2013 [facility] [place] [facility] [address] [id number] [place] [address] Dec, 2013 [facility] [place] [facility] [address] [id number] [place] [address]- [address] Dec, [facility] [place] [facility] [address] [id number] [place] [address] Dec, [facility] [place] [facility] [address] [id number] [place] [address]- [address] Dec, [facility] [place] [facility] [address] [id number] [place] [address]- [address] Dec, [facility] [place] [facility] [address] [id number] [place] [address]- [address] Nov, 2013 [facility] [place] [facility] [address] [id number] [place] [address]- [address] Nov, [facility] [place] [facility] [address] [id number] [place] [address] Nov, 2013 [facility] [place] [facility] [address] [id number] [place] [address]- [address] Nov, 2013 [facility] [place] [facility] [address] [id number] [place] [address]- [address] Nov, 2013 [facility] [place] [facility] [address] [id number] [place] [address] Nov, 2013 [facility] [place] [facility] [address] [id number] [place] [address]- [address] 17 Nov, 2013 [facility] [place] [facility] [address] [id number], [place] [address] 17 Nov, 2013 [facility] [place] [facility] [address] [id number], [place] [address] 15 Nov, 2013 [facility] [place] [facility] [address] [id number] [place] [address]- [address] 15 Nov, 2013 [facility] [place] [facility] [address] [id number] [place] [address] Nov, 2013 [facility] [place] [facility] [address] [id number] [place] [address] Nov, 2013 [facility] [place] [facility] [address] [id number] [place] [address] Nov, [facility] [facility] [address] [id number] [place] [address] Nov, [facility] [place] [address] [id number] [place] [address] 93[address] Oct, [facility] [place] [address] [id number] [place] [address]266 Oct, [facility] [place] [facility] [address] [id number] [place] [address]- [address]60 Oct, [facility] [place] [facility] [address] [id number] [place] [address]- 9962 Oct, [facility] [place] [facility] [address] [id number] [place] [address]- 4131 Oct, [facility] [place] [facility] [address] [id number] [place] [address]- 5108 Oct, [facility] [place] [address] [id number] [place] [address]- 3401 Oct, [facility] [place] [address] [id number] [place] [address]- 8737 Oct, [facility] [address] [id number] [place] [address]- 4306 Sep, [facility] [address] [id number] [place] [address]- 5966 Sep, [facility] [place] [address] [id number] [place] [address]- 0945 Sep, [facility] [place] [address] [id number] [place] [address]- 9104 Sep, [facility] [address] [id number] [place] [address]- 3417 Sep, [facility] [place] [address] [id number] [place] [address]- 9420 Sep, [facility] [place] [facility] [address] [id number] [place] [address]- 7508 Aug, [facility] [address] [id number] [place] [address]- 7742 Aug, [facility] [address] [id number] [place] [address]- 6023 July, [facility] [address] [id number] [place] [address]- 5774 July, [facility] [address] [id number] [place] [address]- 8351 July, [facility] [address] [id number] [place] [address]- 6279 July, [facility] [address] [id number] [place] [address]- 5568 July, [facility] [address] [id number] [place] [address]- 9452 July, [facility] [address] [id number] [place] [address]- 3857 July, [facility] [address] [id number] [place] [address]- 5789 July, [facility] [address] [id number] [place] [address]- 1992 July, [facility] [address] [id number] [place] [address]- 1769 July, [facility] [address] [id number] [place] [address]- 7830 July, [facility] [address] [id number] [place] [address]- 0108 July, [facility] [address] [id number] [place] [address] July, [facility] [address] [id number] [place] [address]- 1024 July, [facility] [address] [id number] [place] [address]- 9271 July, [facility] [address] [id number] [place] [address]- 0481 July, [facility] [address] [id number] [place] [address]- 5831 July, [facility] [facility] [address] [id number] [place] [address]- 5234 July, [facility] [address] [id number] [place] [address]- 3411 Jun, [facility] [address] [id number] [place] [address]- 0825 Jun, [facility] [facility] [address] [id number] [place] [address]- 8987 Jun, [facility] [address] [id number] [place] [address]- 9270 Jun, [facility] [address] [id number] [place] [address]- 0717 Jun, [facility] [address] [id number] [place] [address]- 1130 Jun, [facility] [address] [id number] [place] [address]- 2301 Jun, [facility] [address] [id number] [place] [address]- 0378 Jun, [facility] [address] [id number] [place] [address]- 4352 Jun, [facility] [address] [id number] [place] [address]- 1971 Jun, [facility] [address] [id number] [place] [address]- 9615 Jun, [facility] [address] [id number] [place] [address]- 0363 08 Jun, 2013 [facility] [address] [id number] [place] [address]- 7297 May, [facility] [address] [id number] [place] [address]- 3556 May, [facility] [address] [id number] [place] [address]- 2484 May, [facility] [address] [id number] [place] [address]- 4559 May, [facility] [address] [id number] [place] [address]- 7106 May, [facility] [address] [id number] [place] [address]- 3379 May, [facility] [address] [id number] [place] [address]- 6272 May, [facility] [address] [id number] [place] [address]- 1329 May, [facility] [address] [id number] [place] [address]- 6100 May, [facility] [address] [id number] [place] [address]- 0069 May, [facility] [address] [id number] [place] [address]- 1203 Apr, [facility] [address] [id number] [place] [address]- 1031 Apr, [facility] [address] [id number] [place] [address]- 3045 Apr, [facility] [address] [id number] [place] [address]- 2603 Apr, [facility] [address] [id number] [place] [address]- 7138 Apr, [facility] [address] [id number] [place] [address]- 0680 Apr, [facility] [address] [id number] [place] [address]- 5926 Apr, [facility] [address] [facility] [id number] [place] [address]- 6006 Apr, [facility] [address] [id number] [place] [address]- 0289 Apr, [facility] [address] [id number] [place] [address]- 7986 Apr, [facility] [address] [facility] [id number] [place] [address]- 6559 Apr, [facility] [address] [facility] [id number] [place] [address]- 2676 Apr, [facility] [address] [facility] [id number] [place] [address]- 4637 Apr, [facility] [address] [facility] [id number] [place] [address]- 2039 Apr, [facility] [address] [facility] [id number] [place] [address]- 7609 Mar, [facility] [address] [facility] [id number] [place] [address]- 2059 Mar, [facility] [address] [id number] [place] [address]- 2725 Mar, [facility] [address] [id number] [place] [address]- 2185 Mar, [facility] [address] [facility] [id number] [place] [address]- 6494 Mar, [facility] [address] [facility] [id number] [place] [address]- 7309 Mar, [facility] [address] [id number] [place] [address]- 4699 Mar, [facility] [address] [id number] [place] [address]- 1705 Mar, [facility] [address] [id number] [place] [address]- 7466 Mar, [facility] [address] [id number] [place] [address]- 4283 Mar, [facility] [address] [id number] [place] [address]- 1478 Mar, [facility] [address] [id number] [place] [address]- 7544 Mar, [facility] [address] [id number] [place] [address]- 9571 Feb, [facility] [address] [id number] [place] [address]- 0428 Feb, [facility] [address] [id number] [place] [address] Feb, [facility] [address] [id number] [place] [address]- 5407 Feb, [facility] [address] [id number] [place] [address]- 4145 Feb, [facility] [address] [id number] [place] [address]- 1297 Feb, [facility] [address] [id number] [place] [address]- 0135 Feb, [facility] [address] [id number] [place] [address]- 8116 Feb, [facility] [address] [id number] [place] [address]- 4276 Feb, [facility] [address] [id number] [place] [address]- 0706 Feb, [facility] [address] [id number] [place] [address]- 9033 Feb, [facility] [address] [id number] [place] [address]- 9273 Jan, [facility] [address] [id number] [place] [address]- 1629 Jan, [facility] [address] [id number] [place] [address]- 8134 Jan, [facility] [address] [id number] [place] [address]- 1132 Jan, [facility] [address] [id number] [place] [address]- 3379 Jan, [facility] [address] [id number] [place] [address]- 3592 Jan, [facility] [address] [id number], [place] [address]- 0825 Jan, [facility] [address] [id number] [place] [address]- 7485 Dec, [facility] [address] [id number], [place] [address]- 7745 Dec, [facility] [address] [id number], [place] [address]- 7782 Dec, [facility] [address] [id number], [place] [address]- 1011 10 Dec, 2012 [facility] [address] [id number], [place] [address]- 1468 Dec, [facility] [address] [id number], [place] [address]- 7571 18 Nov, 2012 [facility] [address] [id number], [place] [address]- 0071 Oct, [facility] [address] [id number] [place] [address]- 0878 Oct, [facility] [address] [id number] [place] [address]- 9766 Oct, [facility] [address] [id number] [place] [address]- 3654 Oct, [facility] [address] [id number] [place] [address]- 7124 Oct, [facility] [address] [id number] [place] [address]- 6508 Sep, [facility] [address] [id number] [place] [address]- 0794 Sep, [facility] [address] [id number] [place] [address]- 0864 Sep, [facility] [address] [id number] [place] [address]- 8469 Sep, [facility] [address] [id number] [place] [address]- 0003 Aug, [facility] [address] [id number] [place] [address]- 2401 Aug, [facility] [address] [id number] [place] [address]- 6754 Aug, [facility] [address] [id number] [place] [address]- 6143 Aug, [facility] [address] [id number] [place] [address]- 0505 Aug, [facility] [address] [id number] [place] [address]- 5506 July, [facility] [address] [id number] [id number] [address]65 July, [facility] [address] [id number] [place] [address]- 9308 July, [facility] [address] [id number] [place] [address]- 1853 July, [facility] [address] [id number] [place] [address]- 8185 Jun, [facility] [address] [id number] [place] [address]- 9286 Jun, [facility] [address] [id number] [place] [address]- 7665 May, [facility] [address] [id number] [place] [address]- 1294 May, [facility] [address] [id number] [place] [address]- 3933 Apr, [facility] [address] [id number] [place] [address]- 5760 Apr, [facility] [address] [id number] [place] [address]- 7419 Mar, [facility] [address] [id number] [place] [address]- 6616 Mar, [facility] [address] [id number] [place] [address]- 6155 Feb, [facility] [address] [id number] [place] [address]- 3353 Feb, [facility] [address] [id number] [place] [address]- 0084 Feb, [facility] [address] [id number] [place] [address]- 4731 Feb, [facility] [address] [id number] [place] [address]- 7116 Feb, [facility] [address] [id number] [place] [address]- 0516 Feb, [facility] [address] [id number], [place] [address]- 6182 Jan, [facility] [address] [id number] [place] [address]- 6785 Jan, [facility] [facility] [address] [id number] [place] [address]- 3124 Jan, [facility] [place] [facility] [address] [id number] [place] [address]- 3724 Jan, [facility] [place] [facility] [address] [id number] [place] [address]- 4401 Dec, [facility] [place] [facility] [address] [id number] [place] [address]75 Dec, [facility] [place] [facility] [address] [id number] [place] [address]11 Nov, [facility] [place] [facility] [address] [id number] [place] [address]- 1863 Nov, [facility] [place] [facility] [address] [id number] [place] [address]- 6133 Nov, [facility] [place] [facility] [address] [id number] [place] [address]- 1269 Oct, [facility] [place] [facility] [address] [id number] [place] [address]- 0295 Sep, [facility] [place] [facility] [address] [id number], [place] [address]- 3356 Aug, [facility] [place] [facility] [address] [id number] [place] [address]- 8755 July, [facility] [place] [facility] [address] [id number] [place] [address]- 8630 July, [facility] [place] [facility] [address] [id number] [place] [address]- 1593 July, [facility] [place] [facility] [address] [id number] [place] [address]- 5379 July, [facility] [place] [facility] [address] [id number] [place] [address]- 3313 July, [facility] [address] [id number] [place] [address]- 3840 25 Jun, 2011 [facility] [place] [facility] [address] [id number] [place] [address]- 6136 29 May, 2011 [facility] [place] [facility] [address] [id number] [place] [address]- 9476 29 May, 2011 [facility] [place] [facility] [address] [id number] [place] [address]- 6651 14 May, 2011 [facility] [place] [facility] [address] [id number] [place] [address]- 4062 28 Apr, 2011 [facility] [facility] [address] [id number] [place] [address]- 1980 20 Apr, 2011 [facility] [place] [facility] [address] [id number] [place] [address]- 9607 16 Mar, 2011 [facility] [address] [id number] [place] 9554 16 Feb, 2011 [facility] [place] [facility] [address] [id number] [place] [address]- 2743 16 Feb, 2011 [facility] [place] [facility] [address] [id number] [place] 9301 16 Feb, 2011 [facility] [place] [facility] [address] [id number] [place] [address]- 7751 15 Feb, 2011 [facility] [facility] [address] [id number] [place] [address] 2548 14 Feb, 2011 [facility] [place] [facility] [address] [id number] [place] [address]- 2986 14 Feb, 2011 [facility] [facility] [address] [id number] [place] [address]- 0526 14 Feb, 2011 [facility] [place] [facility] [address] [id number] [place] [address]- 6035 Jan, [facility] [address] [id number], [place] [address]- 4494 Jan, [facility] [id number], [place] [address]- 8952 Jan, [facility] [address] [id number], [place] [address]- 4196 Aug, [facility] [id number] 3588 Feb, [facility] [id number], [place] [address]- 3932 Feb, [facility] [id number] [place] [address]- 1431 Feb, [facility] [id number], [place] [address]- 9669 Dec, [facility] [id number], [place] [address]- 9218 Jun, [facility] [address] [id number], [place] [address]- 8783 Dec, [facility] [id number], [place] [address]- 7955 Sep, IMMUNIZATIONS No Known Immunizations SOCIAL HISTORY Never Assessed REASON FOR VISIT med order PLAN OF CARE VITAL SIGNS MEDICATIONS Medication Instructions Dosage Frequency Start Date End Date Duration Status Fluconazole 150 MG Orally every 72 hours 1 tablet July, Active RESULTS No Results PROCEDURES No Known [...] disorder of childhood with hyperactivity Hospitalization History [facility] Mental Breakdown 05/2015 Hospitalization History Overdose [facility] 07/17/15
--- OUTSIDE RECORDS SUMMARY | 2018-04-11 16:22 | XMS REPORT ---
Author Author GUI KAUFMAN [facility] Address [address] [place] [address] Care Team Providers Care Humanities And Languages Professor Name Role Phone GUI KAUFMAN Unavailable PROBLEMS Type Condition ICD9-CM Code UCM56-CM Code Onset Dates Condition Status SNOMED Code Problem Unspecified mood [affective] disorder F39 Active 540719405 Problem Attention deficit hyperactivity disorder (ADHD), combined type F90.2 Active 296689726 Problem Bipolar disorder, unspecified F31.9 Active 40637419 Problem Well woman exam Z01.419 Active 274755866 Problem Schizoaffective disorder F25.9 Active 61137399 Problem Generalized anxiety disorder F41.1 Active 79044024 Problem Amenorrhea N91.2 Active 40319297 Problem Seasonal allergic rhinitis due to pollen J30.1 Active 14873119 Problem Bipolar disorder with depression F31.30 Active 95096582 Problem Chronic fatigue R53.82 Active 52047567 Problem Pain in left knee M25.562 Active 89053817 Problem Long-term use of high-risk medication Z79.899 Active 111079567 Problem Low hemoglobin D64.9 Active 146663495 Problem Routine gynecological examination Z01.419 Active 404410682 Problem High risk medication use Z79.899 Active 644827447 Problem Pain in right knee M25.561 Active 86920642 Problem General counseling and advice on female contraception Z30.09 Active 11836979 Problem Vitamin D deficiency E55.9 Active 95774531 Problem Iron deficiency anemia due to chronic blood loss D50.0 Active 39246465 ALLERGIES No Information ENCOUNTERS Encounter Location Date Diagnosis [facility] [id number] [address] July, [facility] [id number] [address] July, [facility] [id number] [place] [address] 38627- 0403 July, Well woman exam Z01.419 and Vaginal discharge N89.8 [facility] [id number] [place] [address] 45317- 7861 Jun, [facility] [id number] [place] [address] 37708 -6030 Mar, [facility] [id number] [place] [address] 60703- 0993 May, Bipolar disorder, unspecified F31.9 [place] [id number] [place] [address] 06104- 4661 May, Bipolar disorder, unspecified F31.9 ; Attention deficit hyperactivity disorder (ADHD), combined type F90.2 and Schizoaffective disorder F25.9 [place] [id number] [place] [address] 54464- 9924 May, Bipolar disorder with depression F31.30 [place] [id number] [place] [address] 65789- 9600 May, Bipolar disorder, unspecified F31.9 ; Attention deficit hyperactivity disorder (ADHD), combined type F90.2 and Schizoaffective disorder F25.9 [place] [id number] [place] [address] 87269- 9277 Apr, Seasonal allergic rhinitis due to pollen J30.1 [facility] [id number] [place] [address] 94860- 8254 Apr, [facility] [id number] [place] [address] 73892- 4112 Mar, Attention deficit disorder (ADD) without 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 ; Bipolar disorder with depression F31.30 and Generalized anxiety disorder F41.1 [place] [id number] [place] [address] 12207- 9881 Mar, [place] [address] [place] [address]- 9682 Feb, Unspecified mood [affective] disorder F39 [facility] [id number] [place] [address] 82148- 0437 Feb, Unspecified mood [affective] disorder F39 [facility] [id number] [place] [address] 96164- 7962 Feb, [facility] [address] [address]- 7170 Jan, Amenorrhea N91.2 ; Vitamin D deficiency E55.9 and Iron deficiency anemia due to chronic blood loss D50.0 [facility] [address] [address]- 4753 Jan, Encounter for test Z32.00 [facility] [id number] [place] [address] 36993- 1413 Dec, Unspecified mood [affective] disorder F39 ; Bipolar disorder , unspecified F31.9 and Attention deficit hyperactivity disorder (ADHD), combined type F90.2 [facility] [id number] [place] [address] 60909- 9435 Nov, [facility] [id number] [place] [address] 64120- 5134 Nov, [facility] [id number] [place] [address] 45252- 7925 Nov, [facility] [id number] [place] [address] 05572- 8597 Nov, [facility] [id number] [place] [address] 62226- 5940 Nov, [facility] [id number] [place] [address] 29813 -0440 Nov, Dysuria R30.0 [facility] [id number] [place] [address] 41264- 8996 Oct, [facility] [address] [address]- 9679 Oct, [facility] [address] [address]- 6703 Sep, [facility] [address] [address]- 3705 Sep, Bipolar disorder, unspecified F31.9 and Schizoaffective disorder F25.9 [facility] [id number] [place] [address] 85861- 6119 Sep, [facility] [id number] [place] [address] 79023- 7683 Aug, Unspecified mood [affective] disorder F39 [facility] [id number] [place] [address] 19861- 8623 Aug, [facility] [id number] [place] [address] 15859- 2834 Aug, General counseling and advice on female contraception Z30.09 and Iron deficiency anemia due to chronic blood loss D50.0 [address] [id number] [place] [address] 10206- 0062 July, Routine gynecological examination Z01.419 ; General counseling and advice on female contraception Z30.09 ; High risk medication use Z79.899 ; Other specified bacterial agents as the cause of diseases classified elsewhere B96.89 and Acute vaginitis N76.0 [facility] [address] [address]- 2136 July, Attention deficit hyperactivity disorder (ADHD), combined type F90.2 ; Bipolar disorder, unspecified F31.9 and Schizoaffective disorder F25.9 [facility] [address] [address]- 2848 July, Unspecified mood [affective] disorder F39 [facility] [address] [address]- 4719 July, [facility] [id number] [place] [address] 51139- 8363 July, [facility] [id number] [place] [address] 53204- 6144 July, Low hemoglobin D64.9 [place] [id number] [place] [address] 48978- 1731 July, [facility] [id number] [place] [address] 66087- 9912 July, General counselling and advice on contraception Z30.09 ; Pain in left knee M25.562 ; Pain in right knee M25.561 ; Chronic fatigue R53.82 and Vitamin D deficiency E55.9 [place] [id number] [place] [address] 19016- 3206 Jun, Fatigue R53.83 [place] [id number] [place] [address] 17771- 0618 Jun, Fatigue R53.83 ; Low hemoglobin D64.9 ; Long-term use of high-risk medication Z79.899 ; Sore throat J02.9 and Fever, low grade R50.9 [place] [id number] [place] [address] 68624- 1334 Jun, Unspecified mood [affective] disorder F39 [place] [id number] [place] [address] 24482- 1486 May, Unspecified mood [affective] disorder F39 [place] [id number] [place] [address] 77202- 8678 May, [place] [id number] [place] [address] 81364- 5528 May, Attention deficit hyperactivity disorder (ADHD), combined type F90.2 ; Bipolar disorder, unspecified F31.9 and Schizoaffective disorder F25.9 [place] [id number] [place] [address] 60295- 5247 May, [facility] [address] [address]- 0640 Apr, [facility] [id number] [place] [address] 57393- 1212 Apr, [facility] [address] [address]- 9599 Apr, [facility] [id number] [place] [address] 22026- 3497 Apr, [facility] [id number] [place] [address] [id number] Apr, Ingestion of unknown drug T50.901A [facility] [address] [place] [address] 95175- 8414 Apr, [facility] [id number] [place] [address] 84012- 8384 Apr, Unspecified mood [affective] disorder F39 [facility] [id number] [place] [address] 27790- 6166 Apr, Unspecified mood [affective] disorder F39 [facility] [address] [place] [address] 80811- 5308 Apr, Unspecified mood [affective] disorder F39 [facility] [address] [place] [address] 91663- 5772 Apr, 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 [address] [address] Mar, Menstrual period late N91.0 and High risk sexual behavior Z72.51 [place] [address] [address]- 7556 Mar, Unspecified mood [affective] disorder F39 [facility] [id number] [place] [address] 11911- 9024 Mar, Unspecified mood [affective] disorder F39 [facility] [id number] [place] [address] 44219- 0845 Mar, Unspecified mood [affective] disorder F39 [facility] [id number] [place] [address] 42080- 1865 Feb, [facility] [id number] [place] [address] 11851- 2081 Feb, Attention deficit hyperactivity disorder (ADHD), combined type F90.2 ; Episodic mood disorder 296.90 and Bipolar disorder, unspecified F31.9 [facility] [id number] [place] [address] 64007- 6705 Feb, Major depressive disorder, recurrent, moderate F33.1 [facility] [id number] [place] [address] 92770- 0811 Feb, Unspecified mood [affective] disorder F39 [facility] [id number] [place] [address] 84876- 8231 Feb, Unspecified mood [affective] disorder F39 [facility] [address] [address]- 3778 Feb, [facility] [id number] [place] [address] 12720- 6917 Feb, Unspecified mood [affective] disorder F39 [facility] [id number] [place] [address] 01103- 1415 Feb, Bipolar disorder, unspecified F31.9 [facility] [address] [address]- 6659 Jan, [facility] [id number] [place] [address] 01226- 6260 Jan, Unspecified mood [affective] disorder F39 [facility] [id number] [place] [address] 12630- 6473 Jan, Unspecified mood [affective] disorder F39 [facility] [id number] [place] [address] 86919- 7055 Jan, Bipolar disorder, unspecified F31.9 [facility] [id number] [place] [address] 54161- 8876 Jan, Attention deficit hyperactivity disorder (ADHD), combined type F90.2 and Bipolar disorder, unspecified F31.9 [facility] [id number] [place] [address] 42801- 3089 Jan, [facility] [id number] [place] [address] 90905- 7687 Jan, [facility] [id number] [place] [address] 32524- 1810 Jan, Unspecified mood [affective] disorder F39 [facility] [id number] [place] [address] 44949- 7733 Dec, Unspecified mood [affective] disorder F39 [facility] [id number] [place] [address] 65743- 9548 Dec, Unspecified mood [affective] disorder F39 [facility] [id number] [place] [address] 47688- 3068 Dec, Unspecified mood [affective] disorder [id number] [place] [address] 48263- 3128 Dec, [facility] [id number] [place] [address] 11357- 3815 Dec, Viral upper respiratory tract infection J06.9 ; Encounter for immunization Z23 and Smoker F17.200 [facility] [id number] [place] [address] 44656- 1582 Dec, [facility] [address] [address]- 1752 Dec, Schizoaffective disorder F25.9 and Attention deficit hyperactivity disorder (ADHD), combined type F90.2 [facility] [address] [address]- 1295 Nov, [facility] [id number] [place] [address] 38168- 1791 Nov, Unspecified mood [affective] disorder F39 [facility] [id number] [place] [address] 65827- 0003 Nov, Schizoaffective disorder, unspecified 295.70 ; Generalized anxiety disorder 300.02 and Attention deficit disorder of childhood with hyperactivity 314.01 [facility] [address] [address]- 3997 Oct, [facility] [id number] [place] [address] 77613- 6775 Oct, [facility] [id number] [place] [address] 20284- 3472 Oct, [facility] [id number] [place] [address] 71773- 8847 Oct, Affective disorder 296.90 [facility] [id number] [place] [address] 19487- 5895 Oct, Screen for STD (sexually transmitted disease) V74.5 and Encounter for counseling regarding contraception V25.09 [facility] [address] [address]- 4248 Sep, [facility] [id number] [place] [address] 05147- 8687 Sep, [facility] [address] [address]- 7680 Sep, Episodic mood disorder 296.90 [facility] [address] [address]- 5305 Sep, [facility] [address] [address]- 1804 Sep, [facility] [address] [address]- 9746 Aug, [facility] [address] [address]- 5840 Aug, [facility] [address] [address]- 1127 Aug, [facility] [address] [address]- 1146 Aug, Episodic mood disorder 296.90 [facility] [address] [address]- 7320 Aug, [facility] [address] [address]- 4067 July, Allergic rhinitis 477.9 [facility] [address] [address]- 5647 July, Schizoaffective disorder, unspecified 295.70 [facility] [address] [address]- 6537 July, [facility] [address] [address]- 6792 Jun, [facility] [address] [address]- 0458 Jun, [facility] [address] [address]- 3690 May, [facility] [address] [address]- 6254 May, [facility] [address] [address]- 1366 May, [facility] [id number] [place] [address]- 9697 May, [facility] [place] [facility] [address] [id number] [place] [address]- 7338 Apr, 2014 [facility] [place] [facility] [address] [id number] [place] [address]- 3296 Apr, 2014 [facility] [place] [facility] [address] [id number] [place] [address]- 9931 Apr, 2014 [facility] [place] [facility] [address] [id number] [place] [address]- 4596 Apr, 2014 [facility] [place] [facility] [address] [id number] [place] [address]- 4694 Apr, 2014 [facility] [place] [facility] [address] [facility] [id number] [place] [address]- 6783 Apr, [facility] [place] [facility] [address] [facility] [id number] [place] [address]- 0762 Apr, [facility] [place] [facility] [address] [facility] [id number] [place] [address]- 3879 Apr, [facility] [place] [facility] [address] [facility] [id number] [place] [address]- 0324 Mar, [facility] [place] [facility] [address] [facility] [id number] [place] [address]- 9484 Mar, [facility] [place] [facility] [address] [id number] [place] [address]- 4775 Mar, [facility] [place] [facility] [address] [id number] [place] [address]- 6537 Mar, [facility] [place] [facility] [address] [id number] [place] [address]- 8722 Feb, [facility] [place] [facility] [address] [id number] [place] [address]- 2813 Feb, [facility] [place] [facility] [address] [id number] [place] [address]- 3486 Feb, [facility] [place] [facility] [address] [id number] [place] [address]- 2449 30 Feb, 2014 [facility] [place] [facility] [address] [id number] [place] 5509 Feb, [facility] [place] [facility] [address] [id number] [place] [address]- 2091 Feb, [facility] [place] [facility] [address] [id number] [place] [address]- 9722 Feb, [facility] [place] [facility] [address] [id number] [place] [address]- 8626 Feb, [facility] [place] [facility] [address] [id number] [place] [address]- 5099 Feb, [facility] [place] [facility] [address] [id number] [place] [address]- 9114 Feb, [facility] [place] [facility] [address] [id number] [place] [address]- 4542 Feb, [facility] [place] [facility] [address] [id number] [place] [address]- 4009 Jan, [facility] [place] [facility] [address] [id number] [place] [address]- 4956 Jan, [facility] [place] [facility] [address] [id number] [address]- 5357 Dec, [facility] [place] [facility] [address] [id number] [address]- 5922 Dec, [facility] [place] [facility] [address] [id number] [place] [address]- 9667 Dec, [facility] [place] [facility] [address] [id number] [place] [address]- 4256 Dec, [facility] [place] [facility] [address] [id number] [place] [address]- 6934 Dec, [facility] [place] [facility] [address] [id number] [place] [address]- 5244 Dec, 2013 [facility] [place] [facility] [address] [id number] [place] [address]- 3693 Dec, 2013 [facility] [place] [facility] [address] [id number] [place] [address]- 4933 Dec, 2013 [facility] [place] [facility] [address] [id number] [place] [address]- 7633 Dec, 2013 [facility] [place] [facility] [address] [id number] [place] [address]- 4958 Dec, 2013 [facility] [place] [facility] [address] [id number] [place] [address]- 8871 Dec, 2013 [facility] [place] [facility] [address] [id number] [place] [address]- 1772 Dec, 2013 [facility] [place] [facility] [address] [id number] [place] [address]- 1882 Dec, 2013 [facility] [place] [facility] [address] [id number] [place] [address]- 0690 Dec, 2013 [facility] [place] [facility] [address] [id number] [place] [address]- 5106 Dec, 2013 [facility] [place] [facility] [address] [id number] [place] [address]- 6372 Dec, 2013 [facility] [place] [facility] [address] [id number] [place] [address]- 1872 Dec, 2013 [facility] [place] [facility] [address] [id number] [place] [address]- 2271 Dec, 2013 [facility] [place] [facility] [address] [id number] [place] [address]- 8832 Dec, 2013 [facility] [place] [facility] [address] [id number] [place] [address]- 8495 Dec, 2013 [facility] [place] [facility] [address] [id number] [place] [address] Dec, [facility] [place] [facility] [address] [id number] [place] [address] Dec, [facility] [place] [facility] [address] [id number] [place] [address] Dec, [facility] [place] [facility] [address] [id number] [place] [address] Dec, [facility] [place] [facility] [address] [id number] [place] [address] Nov, 2013 [facility] [place] [facility] [address] [id number] [place] [address] Nov, [facility] [place] [facility] [address] [id number] [place] [address] Nov, 2013 [facility] [place] [facility] [address] [id number] [place] [address] Nov, 2013 [facility] [place] [facility] [address] [id number] [place] [address] Nov, 2013 [facility] [place] [facility] [address] [id number] [place] [address] Nov, 2013 [facility] [place] [facility] [address] [id number] [place] [address] 17 Nov, 2013 [facility] [place] [facility] [address] [id number] [place] [address] 17 Nov, 2013 [facility] [place] [facility] [address] [id number] [place] [address] 15 Nov, 2013 [facility] [place] [facility] [address] [id number] [place] [address] 15 Nov, 2013 [facility] [place] [facility] [address] [id number] [place] [address] 02 Nov, 2013 [facility] [place] [facility] [address] [id number] [place] [address] Nov, 2013 [facility] [place] [facility] [address] [id number] [place] [address] Nov, [facility] [place] [facility] [address] [id number] [place] [address] Nov, [facility] [place] [facility] [address] [id number] [place] [address] Oct, [facility] [place] [facility] [address] [id number] [place] [address] Oct, [facility] [place] [facility] [address] [id number] [place] [address] Oct, [facility] [place] [facility] [address] [id number] [place] [address] Oct, [facility] [place] [facility] [address] [id number] [place] [address] Oct, [facility] [place] [facility] [address] [id number] [place] [address] 6990 Oct, [facility] [place] [facility] [address] [id number] [place] [address]654 Oct, [facility] [place] [facility] [address] [id number] [place] [address] 7387 Oct, [facility] [place] [facility] [address] [id number] [place] [address] 7195 Sep, [facility] [place] [facility] [address] [id number] [place] [address] 5571 Sep, [facility] [place] [facility] [address] [id number] [place] [address] 1132 Sep, [facility] [place] [facility] [address] [id number] [place] [address] 0151 Sep, [facility] [place] [facility] [address] [id number] [place] [address] 0793 Sep, [facility] [place] [facility] [address] [id number] [place] [address] 9614 Sep, [facility] [place] [facility] [address] [id number] [place] [address] 9904 Aug, [facility] [place] [facility] [address] [id number] [place] [address] Aug, [facility] [place] [facility] [address] [id number] [place] [address] 8367 July, [facility] [place] [facility] [address] [id number] [place] [address] 8300 July, [facility] [place] [facility] [address] [id number] [place] [address] 9062 July, [facility] [place] [facility] [address] [id number] [place] [address] 2835 July, [facility] [place] [facility] [address] [id number] [place] [address] 5553 July, [facility] [place] [facility] [address] [id number] [place] [address] 6206 July, [facility] [place] [facility] [address] [id number] [place] [address]- 2186 July, [facility] [place] [facility] [address] [id number] [place] [address] 7722 July, [facility] [place] [facility] [address] [id number] [place] [address] 7608 July, [facility] [place] [facility] [address] [id number] [place] [address]- 6215 July, [facility] [place] [facility] [address] [id number] [place] [address] July, [facility] [place] [facility] [address] [id number] [place] [address] July, [facility] [place] [facility] [address] [id number] [place] [address]- 4896 July, [facility] [place] [facility] [address] [id number] [place] [address]- 4390 July, [facility] [place] [facility] [address] [id number] [place] [address]- 4193 July, [facility] [place] [facility] [address] [id number] [place] [address]- 1282 July, [facility] [place] [facility] [address] [id number] [place] [address]- 2828 July, [facility] [place] [facility] [address] [id number] [place] [address]- 7041 July, [facility] [place] [facility] [address] [id number] [place] [address]- 1804 Jun, [facility] [place] [facility] [address] [id number] [place] [address]- 3034 Jun, [facility] [place] [facility] [address] [id number] [place] [address]- 9687 Jun, [facility] [place] [facility] [address] [id number] [place] [address]- 7169 Jun, [facility] [place] [facility] [address] [id number] [place] [address]- 7973 Jun, [facility] [place] [facility] [address] [id number] [place] [address]- 3353 Jun, [facility] [place] [facility] [address] [id number] [place] [address]- 3026 Jun, [facility] [place] [facility] [address] [id number] [place] [address]- 6520 Jun, [facility] [place] [facility] [address] [id number] [place] [address]- 5773 Jun, [facility] [place] [facility] [address] [id number] [place] [address]- 5593 Jun, [facility] [place] [facility] [address] [id number] [place] [address]- 2945 Jun, [facility] [place] [facility] [address] [id number] [place] [address] 08 Jun, 2013 [facility] [place] [facility] [address] [id number] [place] [address]- 5579 May, [facility] [place] [facility] [address] [id number] [place] [address]- 8817 May, [facility] [place] [facility] [address] [id number] [place] [address]- 3081 May, [facility] [place] [facility] [address] [id number] [place] [address]- 6156 May, [facility] [place] [facility] [address] [id number] [place] [address]- 0788 May, [facility] [place] [facility] [address] [id number] [place] [address]- 9741 May, [facility] [place] [facility] [address] [id number] [place] [address]- 0270 May, [facility] [place] [facility] [address] [id number] [place] [address]- 4713 May, [facility] [place] [facility] [address] [id number] [place] [address]- 8646 May, [facility] [place] [facility] [address] [facility] [id number] [place] [address]- 3472 May, [facility] [place] [facility] [address] [id number] [place] [address]- 7899 Apr, [facility] [place] [facility] [address] [id number] [place] [address]- 3753 Apr, [facility] [place] [facility] [address] [id number] [place] [address] Apr, [facility] [place] [facility] [address] [id number] [place] [address]- 2813 Apr, [facility] [place] [facility] [address] [id number] [place] [address]- 6185 Apr, [facility] [place] [facility] [address] [id number] [place] [address]- 1783 Apr, [facility] [place] [facility] [address] [id number] [place] [address]- 5231 Apr, [facility] [place] [facility] [address] [facility] [id number] [place] [address]- 6777 Apr, [facility] [place] [facility] [address] [id number] [place] [address]- 7468 Apr, [facility] [place] [facility] [address] [id number] [place] [address]- 2717 Apr, [facility] [place] [facility] [address] [facility] [id number] [place] [address]- 6059 Apr, [facility] [place] [facility] [address] [facility] [id number] [place] [address]- 7136 Apr, [facility] [place] [facility] [address] [id number] [place] [address]- 9667 Apr, [facility] [place] [facility] [address] [id number] [place] [address]- 8293 Apr, [facility] [place] [facility] [address] [facility] [id number] [place] [address]- 5533 Mar, [facility] [place] [facility] [address] [facility] [id number] [place] [address]- 8220 Mar, [facility] [place] [facility] [address] [id number] [place] [address]- 5951 Mar, [facility] [place] [facility] [address] [id number] [place] [address]- 4409 Mar, [facility] [place] [facility] [address] [facility] [id number] [place] [address]- 9962 Mar, [facility] [place] [facility] [address] [facility] [id number] [place] [address]- 9431 Mar, [facility] [place] [facility] [address] [id number] [place] [address]- 2956 Mar, [facility] [address] [id number] [place] [address]- 1933 Mar, [facility] [place] [facility] [address] [id number] [place] [address]- 2546 Mar, [facility] [place] [facility] [address] [id number] [place] [address]- 9896 Mar, [facility] [place] [facility] [address] [id number] [place] [address] 2546 Mar, [facility] [place] [facility] [address] [id number] [place] [address]- 9057 Mar, [facility] [place] [facility] [address] [id number] [place] [address]- 9184 Feb, [facility] [place] [facility] [address] [id number] [place] [address]- 1998 Feb, [facility] [address] [id number] [place] [address]- 9650 Feb, [facility] [place] [facility] [address] [id number] [place] [address]- 4465 Feb, [facility] [place] [facility] [address] [id number] [place] [address]- 8610 Feb, [facility] [place] [facility] [address] [id number] [place] [address]- 5180 Feb, [facility] [place] [facility] [address] [id number] [place] [address]- 2931 Feb, [facility] [place] [facility] [address] [id number] [place] [address]- 1946 Feb, [facility] [place] [facility] [address] [id number] [place] [address]- 2546 Feb, [facility] [place] [facility] [address] [id number] [place] [address]- 1770 Feb, [facility] [place] [facility] [address] [id number] [place] [address]- 0186 Feb, [facility] [place] [facility] [address] [id number] [place] [address]- 8781 Jan, [facility] [place] [facility] [address] [id number] [place] [address]- 3469 Jan, [facility] [place] [facility] [address] [id number] [place] [address]- 8438 Jan, [facility] [place] [facility] [address] [id number] [place] [address]- 8393 Jan, [facility] [place] [facility] [address] [id number] [place] [address]- 7370 Jan, [facility] [place] [facility] [address] [id number] [place] [address]- 5976 Jan, [facility] [place] [facility] [address] [id number] [place] [address]- 2199 Jan, [facility] [place] [facility] [address] [id number] [place] [address]- 5279 Dec, [facility] [place] [facility] [address] [id number] [place] [address]- 1693 Dec, [facility] [place] [facility] [address] [id number] [place] [address]- 7793 Dec, [facility] [place] [facility] [address] [id number] [place] [address]- 7701 Dec, [facility] [place] [facility] [address] [id number] [place] [address]- 1184 Dec, [facility] [place] [facility] [address] [id number] [place] [address]- 7271 18 Nov, 2012 [facility] [place] [facility] [address] [id number] [place] [address]- 6797 Oct, [facility] [place] [facility] [address] [id number] [place] [address]- 1199 Oct, [facility] [address] [id number] [place] [address]- 7418 Oct, [facility] [place] [facility] [address] [id number] [place] [address]- 3690 Oct, [facility] [place] [facility] [address] [id number] [place] [address]- 9324 Oct, [facility] [place] [facility] [address] [id number] [place] [address]- 5861 Sep, [facility] [place] [facility] [address] [id number] [place] [address]- 2987 Sep, [facility] [place] [facility] [address] [id number] [place] [address]- 3463 Sep, [facility] [address] [id number] [place] [address]- 7059 Sep, [facility] [place] [facility] [address] [id number] [place] [address]- 4406 Aug, [facility] [place] [facility] [address] [id number] [place] [address]- 3761 Aug, [facility] [place] [facility] [address] [id number] [place] [address]- 7280 Aug, [facility] [place] [facility] [address] [id number] [place] [address]- 9645 Aug, [facility] [place] [facility] [address] [id number] [place] [address]- 9223 Aug, [facility] [place] [facility] [address] [id number] [place] [address]- 5351 July, [facility] [place] [facility] [address] [id number] [id number] [address]698 July, [facility] [place] [facility] [address] [id number] [place] [address]- 9842 July, [facility] [place] [facility] [address] [id number] [place] [address]- 2055 July, [facility] [address] [id number] [place] [address]- 6641 Jun, [facility] [place] [facility] [address] [id number] [place] [address]- 3966 Jun, [facility] [address] [id number] [place] [address]- 3055 May, [facility] [address] [id number] [place] [address]- 5558 May, [facility] [place] [facility] [address] [id number] [place] [address]- 3045 Apr, [facility] [address] [id number] [place] [address]- 0285 Apr, [facility] [address] [id number] [place] [address]- 7041 Mar, [facility] [address] [id number] [place] [address]- 1549 Mar, [facility] [address] [id number] [place] [address]- 7825 Feb, [facility] [address] [id number] [place] [address]- 0053 Feb, [facility] [place] [facility] [address] [id number] [place] [address]- 8726 Feb, [facility] [place] [facility] [address] [id number] [place] [address]- 6908 Feb, [facility] [place] [facility] [address] [id number] [place] [address]- 4286 Feb, [facility] [place] [facility] [address] [id number] [place] [address]- 8269 Feb, [facility] [place] [facility] [address] [id number] [place] [address]- 7583 Jan, [facility] [place] [facility] [address] [id number] [place] [address]- 5365 Jan, [facility] [place] [facility] [address] [id number] [place] [address]- 8413 Jan, [facility] [place] [facility] [address] [id number] [place] [address]- 4388 Jan, [facility] [place] [facility] [address] [id number] [place] [address]- 3813 Dec, [facility] [place] [facility] [address] [id number] [place] [address]- 2987 Dec, [facility] [place] [facility] [address] [id number] [place] [address]009 Nov, [facility] [place] [facility] [address] [id number] [place] [address]- 8944 Nov, [facility] [place] [facility] [address] [id number] [place] [address]- 2831 Nov, [facility] [place] [facility] [address] [id number] [place] [address]- 0357 Oct, [facility] [place] [facility] [address] [id number] [place] [address]- 8122 Sep, [facility] [place] [facility] [address] [id number] [place] [address]- 9855 Aug, [facility] [place] [facility] [address] [id number] [place] [address]- 2128 July, [facility] [place] [facility] [address] [id number] [place] [address]- 3997 July, [facility] [place] [facility] [address] [id number] [place] [address]- 9830 July, [facility] [place] [facility] [address] [id number] [place] [address]- 2627 July, [facility] [place] [facility] [address] [id number] [place] [address]- 6046 July, [facility] [address] [id number] [place] [address]- 0766 Jun, [facility] [place] [facility] [address] [id number] [place] [address]- 5556 29 May, 2011 [facility] [address] [id number] [place] [address]- 5946 29 May, 2011 [facility] [place] [facility] [address] [id number] [place] [address]- 3697 May, [facility] [address] [id number] [place] [address]- 6726 28 Apr, 2011 [facility] [address] [id number] [place] [address]- 5616 20 Apr, 2011 [facility] [address] [id number] [place] [address]- 9629 16 Mar, 2011 [facility] [address] [id number] [place] [address]872 16 Feb, 2011 [facility] [address] [id number] [place] [address]- 3046 16 Feb, 2011 [facility] [address] [id number] [place] [address]- 1326 16 Feb, 2011 [facility] [address] [id number] [place] [address]- 5876 15 Feb, 2011 [facility] [address] [id number] [place] [address] 2546 14 Feb, 2011 [facility] [place] [facility] [address] [id number] [place] [address]- 0986 14 Feb, 2011 [facility] [place] [facility] [address] [id number] [place] [address]- 7596 14 Feb, 2011 [facility] [place] [facility] [address] [id number] [place] [address]- 6241 Jan, [facility] [address] [id number] [address]- 1873 Jan, [facility] [address] [facility] [id number] [place] [address]- 8333 Jan, [facility] [address] [id number] [address]- 7039 Aug, [facility] [id number] [address]- 6213 Feb, [facility] [address] [facility] [id number] [place] [address]- 9381 Feb, [facility] [id number] [address]- 0186 Feb, [facility] [id number] [address]- 2283 Dec, [facility] [id number] [address]- 6784 Jun, [facility] [address] [id number] [address]- 0338 Dec, [facility] [address] [id number] [address]- 1806 Sep, IMMUNIZATIONS No Known Immunizations SOCIAL HISTORY Never Assessed REASON FOR VISIT med request PLAN OF CARE VITAL SIGNS MEDICATIONS Unknown [...] disorder of childhood with hyperactivity Hospitalization History [facility] Mental Breakdown 05/2015 Hospitalization History Overdose [facility] 07/17/15
--- OUTSIDE RECORDS SUMMARY | 2018-04-11 16:22 | XMS REPORT ---
Author Author REBECCA CONN [facility] Address [address] [place] [address] Care Team Providers Care Instrument Worker Name Role Phone REBECCA CONN Unavailable PROBLEMS Type Condition ICD9-CM Code GCA63-[place] Code Onset Dates Condition Status SNOMED Code Problem Unspecified mood [affective] disorder F39 Active 648515232 Problem Attention deficit hyperactivity disorder (ADHD), combined type F90.2 Active 302515431 Problem Bipolar disorder, unspecified F31.9 Active 01779498 Problem Well woman exam Z01.419 Active 147286388 Problem Schizoaffective disorder F25.9 Active 13103896 Problem Generalized anxiety disorder F41.1 Active 05187769 Problem Amenorrhea N91.2 Active 16087937 Problem Seasonal allergic rhinitis due to pollen J30.1 Active 83297766 Problem Bipolar disorder with depression F31.30 Active 20422069 Problem Chronic fatigue R53.82 Active 87952673 Problem Pain in left knee M25.562 Active 07788355 Problem Long-term use of high-risk medication Z79.899 Active 701350373 Problem Low hemoglobin D64.9 Active 259188628 Problem Routine gynecological examination Z01.419 Active 623734370 Problem High risk medication use Z79.899 Active 665101525 Problem Pain in right knee M25.561 Active 60782877 Problem General counseling and advice on female contraception Z30.09 Active 08724636 Problem Vitamin D deficiency E55.9 Active 69855062 Problem Iron deficiency anemia due to chronic blood loss D50.0 Active 08861924 ALLERGIES Substance Reaction Event Type Date Status Vyvanse vomiting and diarrhea Drug Allergy July, Active Abilify twitching Drug Allergy July, Active ENCOUNTERS Encounter Location Date Diagnosis [facility] [id number] [address] July, [facility] [id number] [place] [address] 52072- 7141 July, [facility] [id number] [place] [address] 12266- 1195 July, Well woman exam Z01.419 and Vaginal discharge N89.8 [facility] [id number] [place] [address] 15779- 9265 Jun, [facility] [id number] [place] [address] 19248 -7590 Mar, [facility] [id number] [place] [address] 60180- 5153 May, Bipolar disorder, unspecified F31.9 [facility] [id number] [place] [address] 11014- 0109 May, Bipolar disorder, unspecified F31.9 ; Attention deficit hyperactivity disorder (ADHD), combined type F90.2 and Schizoaffective disorder F25.9 [facility] [id number] [place] [address] 66631- 9693 May, Bipolar disorder with depression F31.30 [facility] [id number] [place] [address] 74529- 0725 May, Bipolar disorder, unspecified F31.9 ; Attention deficit hyperactivity disorder (ADHD), combined type F90.2 and Schizoaffective disorder F25.9 [facility] [id number] [place] [address] 02324- 7460 Apr, Seasonal allergic rhinitis due to pollen J30.1 [facility] [id number] [place] [address] 01715- 2911 Apr, [facility] [id number] [place] [address] 58877- 0865 Mar, Attention deficit disorder (ADD) without 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 ; Bipolar disorder with depression F31.30 and Generalized anxiety disorder F41.1 [facility] [id number] [place] [address] 53425- 2687 Mar, [facility] [id number] [place] [address] 03520- 8070 Feb, Unspecified mood [affective] disorder F39 [facility] [id number] [place] [address] 97207- 5631 Feb, Unspecified mood [affective] disorder F39 [facility] [id number] [place] [address] 39146- 1372 Feb, [facility] [id number] [place] [address] 18375- 8978 Jan, Amenorrhea N91.2 ; Vitamin D deficiency E55.9 and Iron deficiency anemia due to chronic blood loss D50.0 [facility] [id number] [place] [address] 22875- 4850 Jan, Encounter for test Z32.00 [facility] [id number] [place] [address] 39159- 8863 Dec, Unspecified mood [affective] disorder F39 ; Bipolar disorder , unspecified F31.9 and Attention deficit hyperactivity disorder (ADHD), combined type F90.2 [facility] [id number] [place] [address] 63237- 9074 Nov, [facility] [id number] [place] [address] 76177- 8710 Nov, [facility] [id number] [place] [address] 88996- 8429 Nov, [facility] [id number] [place] [address] 35667- 8162 Nov, [facility] [id number] [place] [address] 33905- 0316 Nov, [facility] [id number] [place] [address] 31618 -5068 Nov, Dysuria R30.0 [facility] [address] [address] 4325 Oct, [facility] [address] [address]- 2746 Oct, [facility] [address] [address]- 3766 Sep, [facility] [address] [address]- 2611 Sep, Bipolar disorder, unspecified F31.9 and Schizoaffective disorder F25.9 [facility] [address] [address]- 3297 Sep, [facility] [address] [address]- 2884 Aug, Unspecified mood [affective] disorder F39 [facility] [address] [address]- 5800 Aug, [facility] [address] [address]- 3293 Aug, General counseling and advice on female contraception Z30.09 and Iron deficiency anemia due to chronic blood loss D50.0 [facility] [id number] [address]- 6983 July, Routine gynecological examination Z01.419 ; General counseling and advice on female contraception Z30.09 ; High risk medication use Z79.899 ; Other specified bacterial agents as the cause of diseases classified elsewhere B96.89 and Acute vaginitis N76.0 [facility] [id number] [address]- 3323 July, Attention deficit hyperactivity disorder (ADHD), combined type F90.2 ; Bipolar disorder, unspecified F31.9 and Schizoaffective disorder F25.9 [facility] [id number] [address]- 0312 July, Unspecified mood [affective] disorder F39 [facility] [address] [address]- 4441 July, [facility] [id number] [place] [address] 43973- 0340 July, [facility] [address] [address]- 0457 July, Low hemoglobin D64.9 [facility] [id number] [place] [address] 57572- 2853 July, [facility] [id number] [place] [address] 13476- 2654 July, General counselling and advice on contraception Z30.09 ; Pain in left knee M25.562 ; Pain in right knee M25.561 ; Chronic fatigue R53.82 and Vitamin D deficiency E55.9 [facility] [id number] [place] [address] 69218- 8082 Jun, Fatigue R53.83 [facility] [id number] [place] [address] 82400- 0305 Jun, Fatigue R53.83 ; Low hemoglobin D64.9 ; Long-term use of high-risk medication Z79.899 ; Sore throat J02.9 and Fever, low grade R50.9 [facility] [address] [address]- 9997 Jun, Unspecified mood [affective] disorder F39 [facility] [address] [address]- 1682 May, Unspecified mood [affective] disorder F39 [facility] [id number] [place] [address] 20506- 6281 May, [facility] [id number] [place] [address] 05807- 8065 May, Attention deficit hyperactivity disorder (ADHD), combined type F90.2 ; Bipolar disorder, unspecified F31.9 and Schizoaffective disorder F25.9 [facility] [address] [address]- 6271 May, [facility] [id number] [place] [address] 69384- 6964 Apr, [facility] [address] [address]- 8844 Apr, [facility] [id number] [place] [address] 82757- 1801 Apr, [facility] [id number] [place] [address] 31085- 8427 Apr, [facility] [id number] [place] [address] [id number] Apr, Ingestion of unknown drug T50.901A [facility] [id number] [place] [address] 45138- 8311 Apr, [facility] [id number] [place] [address] 17427- 8713 Apr, Unspecified mood [affective] disorder F39 [facility] [id number] [place] [address] 03885- 2259 16 Apr, 2015 Unspecified mood [affective] disorder F39 [facility] [address] [address]- 9899 Apr, Unspecified mood [affective] disorder F39 [facility] [address] [address]- 8061 03 Apr, 2015 local [employer] use of drug Z79.899 ; Attention deficit hyperactivity disorder (ADHD), combined type F90.2 ; Bipolar disorder, unspecified F31.9 and Schizoaffective disorder F25.9 [facility] [address] [address]- 7003 Mar, Unspecified mood [affective] disorder F39 [facility] [id number] [place] [address] [id number] Mar, Menstrual period late N91.0 and High risk sexual behavior Z72.51 [facility] [id number] [place] [address] 32242- 3534 Mar, Unspecified mood [affective] disorder F39 [facility] [id number] [place] [address] 68529- 3681 Mar, Unspecified mood [affective] disorder F39 [facility] [id number] [place] [address] 25088- 0841 Mar, Unspecified mood [affective] disorder [id number] [place] [address] 12804- 1683 Feb, [facility] [id number] [place] [address] 51972- 9608 Feb, Attention deficit hyperactivity disorder (ADHD), combined type F90.2 ; Episodic mood disorder 296.90 and Bipolar disorder, unspecified F31.9 [facility] [id number] [place] [address] 02614- 1700 Feb, Major depressive disorder, recurrent, moderate F33.1 [facility] [id number] [place] [address] 90322- 7428 Feb, Unspecified mood [affective] disorder F39 [facility] [address] [address]- 8321 Feb, Unspecified mood [affective] disorder F39 [facility] [id number] [place] [address] 99381- 8398 Feb, [facility] [id number] [place] [address] 86884- 7253 Feb, Unspecified mood [affective] disorder F39 [facility] [id number] [place] [address] 71998- 1362 Feb, Bipolar disorder, unspecified F31.9 [facility] [id number] [address]- 0291 Jan, [facility] [id number] [place] [address] 83600- 0107 Jan, Unspecified mood [affective] disorder F39 [facility] [address] [address]- 9503 Jan, Unspecified mood [affective] disorder F39 [facility] [id number] [place] [address] 41011- 0799 Jan, Bipolar disorder, unspecified F31.9 [facility] [id number] [place] [address] 93072- 8040 Jan, Attention deficit hyperactivity disorder (ADHD), combined type F90.2 and Bipolar disorder, unspecified F31.9 [facility] [id number] [place] [address] 77779- 5707 Jan, [facility] [id number] [place] [address] 36525- 4300 Jan, [facility] [id number] [place] [address] 18337- 2838 Jan, Unspecified mood [affective] disorder F39 [facility] [address] [address]- 7191 Dec, Unspecified mood [affective] disorder F39 [facility] [id number] [place] [address] 49515- 3664 Dec, Unspecified mood [affective] disorder F39 [facility] [address] [address]- 6334 Dec, Unspecified mood [affective] disorder F39 [facility] [address] [address]- 6022 Dec, [facility] [address] [address]- 5741 Dec, Viral upper respiratory tract infection J06.9 ; Encounter for immunization Z23 and Smoker F17.200 [facility] [id number] [place] [address] 39048- 8120 Dec, [facility] [id number] [place] [address] 30677- 3225 Dec, Schizoaffective disorder F25.9 and Attention deficit hyperactivity disorder (ADHD), combined type F90.2 [facility] [address] 82653- 2881 Nov, [facility] [id number] [place] [address] 80586- 5302 Nov, Unspecified mood [affective] disorder F39 [facility] [id number] [place] [address] 94942- 5204 Nov, Schizoaffective disorder, unspecified 295.70 ; Generalized anxiety disorder 300.02 and Attention deficit disorder of childhood with hyperactivity 314.01 [facility] [id number] [place] [address] 89896- 8588 Oct, [facility] [id number] [place] [address] 16613- 1888 Oct, [facility] [id number] [place] [address] 36865- 0904 Oct, [facility] [id number] [place] [address] 80593- 2266 Oct, Affective disorder 296.90 [facility] [id number] [place] [address] 96788- 1666 Oct, Screen for STD (sexually transmitted disease) V74.5 and Encounter for counseling regarding contraception V25.09 [facility] [id number] [place] [address] 40604- 1264 Sep, [facility] [id number] [place] [address] 81909- 6749 Sep, [facility] [address] 66853- 5822 Sep, Episodic mood disorder 296.90 [facility] [address] [address]- 7705 Sep, [facility] [address] [address]- 0713 Sep, [facility] [address] [address]- 9084 Aug, [facility] [address] [address]- 2392 Aug, [facility] [address] [address]- 5295 Aug, [facility] [address] [address]- 6417 Aug, Episodic mood disorder 296.90 [facility] [address] [address]- 3288 Aug, [facility] [address] [address]- 3779 July, Allergic rhinitis 477.9 [facility] [address] [address]- 9523 July, Schizoaffective disorder, unspecified 295.70 [facility] [address] [address]- 7192 July, [facility] [address] [address]- 8100 Jun, [facility] [address] [address]- 8720 Jun, [facility] [address] [address]- 9197 May, [facility] [address] [address]- 0353 May, [facility] [id number] [address]- 7689 May, [facility] [place] [facility] [address] [id number] [place] [address]- 4701 May, [facility] [place] [facility] [address] [id number] [place] [address]- 6495 Apr, [facility] [place] [facility] [address] [id number] [place] [address]- 7414 Apr, 2014 [facility] [place] [facility] [address] [id number] [place] [address]- 7246 Apr, [facility] [place] [facility] [address] [id number] [place] [address]- 9292 Apr, 2014 [facility] [place] [facility] [address] [facility] [id number] [place] [address]- 8827 Apr, [facility] [place] [facility] [address] [id number] [place] [address]- 5543 Apr, [facility] [place] [facility] [address] [id number] [place] [address]- 9438 Apr, [facility] [place] [facility] [address] [facility] [id number] [place] [address]- 0569 Apr, [facility] [place] [facility] [address] [facility] [id number] [place] [address]- 9336 Mar, [facility] [place] [facility] [address] [id number] [place] [address]- 4808 Mar, [facility] [place] [facility] [address] [id number] [place] [address]- 9919 Mar, [facility] [place] [facility] [address] [id number] [place] [address]- 1673 Mar, [facility] [place] [facility] [address] [facility] [id number] [place] [address]- 2904 Feb, [facility] [place] [facility] [address] [id number] [place] [address]- 8524 Feb, [facility] [place] [facility] [address] [id number] [place] [address]- 3672 Feb, [facility] [place] [facility] [address] [id number] [place]81 Feb, [facility] [place] [facility] [address] [id number] [place] [address]- 8156 Feb, [facility] [place] [facility] [address] [id number] [place] [address]- 1486 Feb, [facility] [place] [facility] [address] [id number] [place] [address]- 8682 Feb, [facility] [place] [facility] [address] [id number] [place] [address]- 2741 Feb, [facility] [place] [facility] [address] [id number] [place] [address]- 5691 Feb, [facility] [place] [facility] [address] [id number] [place] [address]- 1854 Feb, [facility] [place] [facility] [address] [id number] [place] [address]- 1985 Feb, [facility] [place] [facility] [address] [id number] [place] [address]- 8232 Jan, [facility] [place] [facility] [address] [id number] [address]- 4054 Jan, [facility] [place] [facility] [address] [id number] [address]- 6865 Dec, [facility] [place] [facility] [address] [id number] [place] [address]- 6113 Dec, [facility] [place] [facility] [address] [id number] [place] [address]- 5320 Dec, [facility] [place] [facility] [address] [id number] [place] [address]- 0253 Dec, [facility] [place] [facility] [address] [id number] [place] [address]- 9265 Dec, 2013 [facility] [place] [facility] [address] [id number] [place] [address]- 0525 Dec, 2013 [facility] [place] [facility] [address] [id number] [place] [address]- 9586 Dec, 2013 [facility] [place] [facility] [address] [id number] [place] [address]- 0799 Dec, 2013 [facility] [place] [facility] [address] [id number] [place] [address]- 8212 Dec, 2013 [facility] [place] [facility] [address] [id number] [place] [address]- 9244 Dec, 2013 [facility] [place] [facility] [address] [id number] [place] [address]- 7363 Dec, 2013 [facility] [place] [facility] [address] [id number] [place] [address]- 3391 Dec, 2013 [facility] [place] [facility] [address] [id number] [place] [address]- 5694 Dec, 2013 [facility] [place] [facility] [address] [id number] [place] [address]- 5054 Dec, 2013 [facility] [place] [facility] [address] [id number] [place] [address]- 3713 Dec, 2013 [facility] [place] [facility] [address] [id number] [place] [address]- 3720 Dec, 2013 [facility] [place] [facility] [address] [id number] [place] [address]- 1933 Dec, 2013 [facility] [place] [facility] [address] [id number] [place] [address]- 9036 Dec, 2013 [facility] [place] [facility] [address] [id number] [place] [address]- 2372 Dec, 2013 [facility] [place] [facility] [address] [id number] [place] [address]- 6991 Dec, [facility] [place] [facility] [address] [id number] [place] [address]- 0404 Dec, [facility] [place] [facility] [address] [id number] [place] [address]- 1508 Dec, [facility] [place] [facility] [address] [id number] [place] [address]- 8737 Dec, [facility] [place] [facility] [address] [id number] [place] [address]- 9696 Dec, [facility] [place] [facility] [address] [id number] [place] [address]- 2685 Nov, [facility] [place] [facility] [address] [id number] [place] [address]- 8271 Nov, [facility] [place] [facility] [address] [id number] [place] [address]- 3892 Nov, [facility] [place] [facility] [address] [id number] [place] [address]- 6308 Nov, 2013 [facility] [place] [facility] [address] [id number] [place] [address]- 9813 22 Nov, 2013 [facility] [place] [facility] [address] [id number] [place] [address]- 7420 22 Nov, 2013 [facility] [place] [facility] [address] [id number] [place] [address]- 2859 17 Nov, 2013 [facility] [place] [facility] [address] [id number] [place] [address] 17 Nov, 2013 [facility] [place] [facility] [address] [id number] [place] [address] 15 Nov, 2013 [facility] [place] [facility] [address] [id number] [place] [address] 15 Nov, 2013 [facility] [place] [facility] [address] [id number] [place] [address] 02 Nov, 2013 [facility] [place] [facility] [address] [id number] [place] [address] Nov, [facility] [place] [facility] [address] [id number] [place] [address] Nov, [facility] [place] [facility] [address] [id number] [place] [address] Nov, [facility] [place] [facility] [address] [id number] [place] [address] Oct, [facility] [place] [facility] [address] [id number] [place] [address] Oct, [facility] [place] [facility] [address] [id number] [place] [address] Oct, [facility] [place] [facility] [address] [id number] [place] [address] Oct, [facility] [place] [facility] [address] [id number] [place] [address] Oct, [facility] [place] [facility] [address] [id number] [place] [address] Oct, [facility] [place] [facility] [address] [id number] [place] [address] Oct, [facility] [place] [facility] [address] [id number] [place] [address] Oct, [facility] [place] [facility] [address] [id number] [place] [address] Sep, [facility] [place] [facility] [address] [id number] [place] [address] Sep, [facility] [place] [facility] [address] [id number] [place] [address] Sep, [facility] [place] [facility] [address] [id number] [place] [address] Sep, [facility] [place] [facility] [address] [id number] [place] [address] Sep, [facility] [place] [facility] [address] [id number] [place] [address] Sep, [facility] [place] [facility] [address] [id number] [place] [address] [address] Aug, [facility] [place] [facility] [address] [id number] [place] [address] Aug, [facility] [place] [facility] [address] [id number] [place] [address] July, [facility] [place] [facility] [address] [id number] [place] [address] July, [facility] [place] [facility] [address] [id number] [place] [address] July, [facility] [place] [facility] [address] [id number] [place] [address] July, [facility] [place] [facility] [address] [id number] [place] [address] July, [facility] [place] [facility] [address] [id number] [place] [address] July, [facility] [facility] [address] [id number] [place] [address] July, [facility] [address] [id number] [place] [address] July, [facility] [address] [id number] [place] [address] July, [facility] [facility] [address] [id number] [place] [address] July, [facility] [place] [facility] [address] [id number] [place] [address] July[facility] [address] [id number] [place] [address] 4231 July, [facility] [place] [facility] [address] [id number] [place] [address] 4[address] July, [facility] [place] [facility] [address] [id number] [place] [address] 4[address] July, [facility] [place] [facility] [address] [id number] [place] [address] 3171 July, [facility] [place] [facility] [address] [id number] [place] [address]- 7185 July, [facility] [place] [facility] [address] [id number] [place] [address] 7[address] July, [facility] [place] [facility] [address] [id number] [place] [address]225 July, [facility] [place] [facility] [address] [id number] [place] [address]- 67[address] Jun, [facility] [place] [facility] [address] [id number] [place] [address]- 4476 Jun, [facility] [place] [facility] [address] [id number] [place] [address]- 7243 Jun, [facility] [place] [facility] [address] [id number] [place] [address]- 8167 Jun, [facility] [place] [facility] [address] [id number] [place] [address]- 5336 Jun, [facility] [place] [facility] [address] [id number] [place] [address]- 3560 Jun, [facility] [place] [facility] [address] [id number] [address] 6[address] Jun, [facility] [place] [facility] [address] [id number] [place] [address]- 8087 Jun, [facility] [place] [facility] [address] [id number] [place] [address]- 2467 Jun, [facility] [place] [facility] [address] [id number] [place] [address]- 5098 Jun, [facility] [facility] [address] [id number] [place] [address]- 6618 08 Jun, 2013 [facility] [facility] [address] [id number] [place] [address]- 9275 Jun, [facility] [facility] [address] [id number] [place] [address]- 0894 May, [facility] [place] [facility] [address] [id number] [place] [address]- 0369 May, [facility] [place] [facility] [address] [id number] [place] [address]- 9779 May, [facility] [place] [facility] [address] [id number] [place] [address]- 7211 May, [facility] [address] [id number] [place] [address]- 7843 May, [facility] [facility] [address] [id number] [place] [address]- 4065 May, [facility] [facility] [address] [id number] [place] [address]- 8048 May, [facility] [place] [facility] [address] [id number] [place] [address]- 7926 May, [facility] [address] [facility] [id number] [place] [address]- 2483 May, [facility] [place] [facility] [address] [id number] [place] [address]- 2438 May, [facility] [address] [id number] [place] [address]- 8459 Apr, [facility] [address] [id number] [place] [address]- 7032 Apr, [facility] [facility] [address] [id number] [place] [address]- 3458 Apr, [facility] [facility] [address] [id number] [place] [address]- 9035 Apr, [facility] [address] [id number] [place] [address]- 6936 Apr, [facility] [place] [facility] [address] [id number] [place] [address]- 9847 Apr, [facility] [facility] [address] [facility] [id number] [place] [address]- 2197 Apr, [facility] [address] [id number] [place] [address]- 2867 Apr, [facility] [address] [id number] [place] [address]- 0413 Apr, [facility] [address] [id number] [place] [address]- 1088 Apr, [facility] [address] [facility] [id number] [place] [address]- 6332 Apr, [facility] [address] [id number] [place] [address]- 5808 Apr, [facility] [address] [id number] [place] [address]- 0320 Apr, [facility] [address] [facility] [id number] [place] [address]- 5946 Apr, [facility] [address] [facility] [id number] [place] [address]- 7037 Mar, [facility] [address] [facility] [id number] [place] [address]- 4007 Mar, [facility] [address] [id number] [place] [address]- 7595 Mar, [facility] [address] [facility] [id number] [place] [address]- 7512 Mar, [facility] [address] [facility] [id number] [place] [address]- 2680 Mar, [facility] [address] [id number] [place] [address]- 9832 Mar, [facility] [address] [id number] [place] [address]- 9084 Mar, [facility] [address] [id number] [place] [address]- 6246 Mar, [facility] [address] [id number] [place] [address]- 4206 Mar, [facility] [address] [id number] [place] [address]- 0348 Mar, [facility] [address] [id number] [place] [address]- 7275 Mar, [facility] [address] [id number] [place] [address]- 5989 Mar, [facility] [address] [id number] [place] [address]- 9132 Feb, [facility] [address] [id number] [place] [address]- 1809 Feb, [facility] [address] [id number] [place] [address]- 1425 Feb, [facility] [address] [id number] [place] [address]- 4930 Feb, [facility] [address] [id number] [place] [address]- 5431 Feb, [facility] [address] [id number] [place] [address]- 4776 Feb, [facility] [address] [id number] [place] [address]- 3686 Feb, [facility] [address] [id number] [place] [address]- 4636 Feb, [facility] [address] [id number] [place] [address]- 5851 Feb, [facility] [address] [id number] [place] [address]- 7046 Feb, [facility] [address] [id number] [place] [address]- 0827 Feb, [facility] [address] [id number] [place] [address]- 3156 Jan, [facility] [address] [id number] [place] [address]- 4122 Jan, [facility] [address] [id number] [place] [address]- 0518 Jan, [facility] [address] [id number] [place] [address]- 7676 Jan, [facility] [address] [id number] [place] [address]- 7785 Jan, [facility] [address] [id number] [address]- 3937 Jan, [facility] [address] [id number] [place] [address]- 1090 Jan, [facility] [address] [id number] [address]- 4153 Dec, [facility] [address] [id number] [address]- 1436 Dec, [facility] [address] [id number] [address]- 2954 Dec, [facility] [address] [id number] [address]- 7758 Dec, [facility] [address] [id number] [place] [address]- 8735 Dec, [facility] [address] [id number] [address]- 8517 18 Nov, 2012 [facility] [address] [id number] [place] [address]- 6023 Oct, [facility] [address] [id number] [place] [address]- 7126 Oct, [facility] [address] [id number] [place] [address]- 5327 Oct, [facility] [address] [id number] [place] [address]- 2172 Oct, [facility] [address] [id number] [place] [address]- 2554 Oct, [facility] [address] [id number] [place] [address]- 7511 Sep, [facility] [address] [id number] [place] [address]- 4303 Sep, [facility] [address] [id number] [place] [address]- 3834 Sep, [facility] [address] [id number] [place] [address]- 4520 Sep, [facility] [address] [id number] [place] [address]- 2019 Aug, [facility] [address] [id number] [place] [address]- 2533 Aug, [facility] [address] [id number] [place] [address]- 8598 Aug, [facility] [address] [id number] [place] [address]- 1540 Aug, [facility] [address] [id number] [place] [address]- 7108 Aug, [facility] [address] [id number] [place] [address]- 7865 July, [facility] [address] [id number] [place] [address]- 9920 July, [facility] [address] [id number] [place] [address]- 2147 July, [facility] [address] [id number] [place] [address]- 7416 July, [facility] [address] [id number] [place] [address]- 6743 Jun, [facility] [address] [id number] [place] [address]- 2066 Jun, [facility] [address] [id number] [place] [address]- 7816 May, [facility] [address] [id number] [place] [address]- 2036 May, [facility] [address] [id number] [place] [address]- 1797 Apr, [facility] [address] [id number] [place] [address]- 1885 Apr, [facility] [address] [id number] [place] [address]- 8507 Mar, [facility] [address] [id number] [place] [address]- 4125 Mar, [facility] [address] [id number] [place] [address]- 5781 Feb, [facility] [address] [id number] [place] [address]- 3729 Feb, [facility] [address] [id number] [place] [address]- 6706 Feb, [facility] [address] [id number] [place] [address]- 9286 Feb, [facility] [address] [id number] [place] [address]- 1543 Feb, [facility] [address] [id number] [address]- 0342 Feb, [facility] [address] [id number] [place] [address]- 2645 Jan, [facility] [address] [id number] [place] [address]- 2823 Jan, [facility] [facility] [address] [id number] [place] Jan, [facility] [facility] [address] [id number] [place] [address]- 0271 Jan, [facility] [address] [id number] [place] [address]- 0700 Dec, [facility] [address] [id number] [place] [address]- 1951 Dec, [facility] [address] [id number] [place] [address]- 1900 Nov, [facility] [address] [id number] [place] [address]- 5810 Nov, [facility] [address] [id number] [place] [address]- 3033 Nov, [facility] [address] [id number] [place] [address]- 9469 Oct, [facility] [address] [id number] [address]- 9599 Sep, [facility] [address] [id number] [place] [address]- 5017 Aug, [facility] [address] [id number] [place] [address] July, [facility] [address] [id number] [place] [address]227 July, [facility] [facility] [address] [id number] [place] [address]359 July, [facility] [place] [facility] [address] [id number] [place] [address]- 2546 July, [facility] [address] [id number] [place] [address]- 1746 July, [facility] [address] [id number] [place] [address] 2546 Jun, [facility] [address] [id number] [place] [address]- 2516 May, [facility] [address] [id number] [place] [address]- 2546 May, [facility] [address] [id number] [place] [address]- 2036 May, [facility] [address] [id number] [place] [address]- 3836 28 Apr, 2011 [facility] [address] [id number] [place] [address]- 6927 Apr, [facility] [address] [id number] [place] [address]- 8067 Mar, [facility] [address] [id number] [place] [address]- 3876 16 Feb, 2011 [facility] [address] [id number] [place] [address]- 1116 16 Feb, 2011 [facility] [address] [id number] [place] [address]- 7296 16 Feb, 2011 [facility] [address] [id number] [place] [address]- 2546 15 Feb, 2011 [facility] [facility] [address] [id number] [place] [address]- 8566 14 Feb, 2011 [facility] [address] [id number] [place] [address]- 2546 14 Feb, 2011 [facility] [facility] [address] [id number] [place] [address]- 0132 14 Feb, 2011 [facility] [id number] [address] Jan, [facility] [id number] [address]- 8505 Jan, [facility] [id number] [address]- 2281 Jan, [facility] [id number] [place] [address]- 9405 15 Aug, 2010 [facility] [id number] [place] [address] 936[address]- 8871 Feb, [facility] [id number] [place] [address] 81767- 0967 Feb, [facility] [id number] [place] [address] 18160- 5696 Feb, [facility] [id number] [place] [address]- 8103 Dec, [facility] [id number] [address]- 7676 Jun, [facility] [address]65[address] [address]- 6872 Dec, [facility] [address]65100[place] [address]- 0356 Sep, IMMUNIZATIONS No Known Immunizations SOCIAL HISTORY Never Assessed REASON FOR VISIT [facility] Activity Details Follow Up 1 Year, prn Reason:well exam VITAL SIGNS Height 63.5 in 2017-07-08 Weight 105.4 lbs 2017-07-08 Temperature 100.2 degrees Fahrenheit 2017-07-08 Heart Rate 88 bpm 2017-07-08 Respiratory Rate 18 2017-07-08 BMI 18.38 kg/m2 2017-07-08 Blood pressure systolic 106 mmHg 2017-07-08 Blood pressure diastolic 58 mmHg 2017-07-08 MEDICATIONS Medication Instructions Dosage Frequency Start Date End Date Duration Status Metronidazole 500 mg Orally 2 times a day 1 tablet 12h 07 July, 2018 14 May , 2018 07 days Active Fluticasone Propionate 50 MCG/ACT Nasally Once a day 1 spray in each nostril 24h Apr, 12 months Active BusPIRone HCl 15 MG Orally Three times a day 1 tablet 8h Mar, Not-Taking LaMICtal XR 200 MG Orally Once a day 1 tablet 24h Mar, 30 day(s ) Not-Taking HydrOXYzine Pamoate 25 MG Orally twice a day 1 capsule as needed 12h July 30 days Not-Taking Strattera 40 mg Orally Once a day 1 capsule in the morning 24h May, 90 days Not-Taking LaMICtal XR 200 mg Orally Once a day 1 tablet 24h May, 90 days Not-Taking RESULTS No Results PROCEDURES Procedure Date Ordered Result Body Site URINALYSIS, AUTO, W/O SCOPE July 08, 2017 Bacterial Vaginosis In House July 08, 2017 No Charge July 08, 2017 TRICHOMONAS ASSAY W/OPTIC July 08, 2017 CULTURE, BACTERIA, OTHER July 08, 2017 INSTRUCTIONS MEDICATIONS ADMINISTERED No Known Medications MEDICAL [...] disorder of childhood with hyperactivity Hospitalization History [facility] Mental Breakdown 05/2015 Hospitalization History Overdose [facility] 07/17/15
--- OUTSIDE RECORDS SUMMARY | 2018-04-11 16:30 | XMS REPORT | Continuity of Care Document ---
Author Author [facility] Organization [facility] Address Unknown Phone Unavailable Allergies Active Description Code Type Severity Reaction Onset Reported/Identified Relationship to Patient Clinical Status Yes No Known Drug Allergies [id number] Drug Allergy Mild N/A 01/03/2009 Yes Vyvanse 30 mg capsule Drug Allergy N/A N/A 04/15/2014 Yes aripiprazole [id number] Drug Allergy Mild N/A 07/17/2015 Yes VYVANCE [...] QUINTANA DO 788.41 Urinary Frequency 10/08/2007 [facility]/08[facility]88.[facility] Urinary Frequency 10/08/2007 MAXINE CLEARY APRN 788.41 Urinary Frequency 10/08/2007 CHARLIE FRIAS APRN 788.41 Urinary Frequency 10/08/2007 [facility], GLEN A 788.41 Urinary Frequency 10/08/2007 788.41 Urinary Frequency 10/08/2007 LINDA HEAD OF DATA, LORI A 788.41 Urinary Frequency 10/08/2007 [facility], GLEN A 788.41 Urinary Frequency 10/08/2007 LINDA HEAD OF DATA, LORI A 788.41 Urinary Frequency 10/08/2007 QUINTANA MARK WOODY 788.41 Urinary Frequency 10/08/2007 [facility], GLEN A 788.41 Urinary Frequency 10/08/2007 LINDA HEAD OF DATA, LORI A 788.41 Urinary Frequency 10/08/2007 [facility], GLEN A 788.41 Urinary Frequency 10/08/2007 [facility], GLEN A 788.41 Urinary Frequency 10/08/2007 JANNET DENT MD 788.41 Urinary Frequency 10/08/2007 MAXINE CLEARY APRN 788.41 Urinary Frequency 10/08/2007 JANNET DENT MD 788.41 Urinary Frequency 10/08/2007 [facility], GLEN A 788.41 Urinary Frequency 10/08/2007 TRACIE RIVERA MD 788.41 Urinary Frequency 10/08/2007 [facility], GLEN A 788.41 Urinary Frequency 10/08/2007 [facility], GLEN A 788.41 Urinary Frequency 10/08/2007 HEVER BOUCHER APRN 788.41 Urinary Frequency 10/08/2007 MAXINE CLEARY APRN 788.41 Urinary Frequency 10/08/2007 TOSHIA HOUSTON RN 788.41 Urinary Frequency 10/08/2007 TOSHIA HOUSTON RN E 788.41 Urinary Frequency 10/08/2007 TOSHIA HOUSTON RN E 788.41 Urinary Frequency 10/08/2007 TOSHIA HOUSTON RN E 788.41 Urinary Frequency 10/08/2007 TOSHIA HOUSTON RN 788.41 Urinary Frequency 10/08/2007 TOSHIA HOUSTON RN E 788.41 Urinary Frequency 10/08/2007 TOSHIA HOUSTON RN E 788.41 Urinary Frequency 10/08/2007 TOSHIA HOUSTON RN 788.41 Urinary Frequency 10/08/2007 TOSHIA HOUSTON RN 788.41 Urinary Frequency 10/08/2007 [facility], GW[facility] Jackson 788.41 Urinary Frequency 10/08/2007 [facility], ZAN M 788.41 Urinary Frequency 10/08/2007 [facility] [employer]IDE, ZAN M 788.41 Urinary Frequency 10/08/2007 CELSO NASH, TOSHIA Moore 788.41 Urinary Frequency 11/05/2007 784.7 EPISTAXIS 11/05/2007 784.7 EPISTAXIS 11/05/2007 JANNET DENT MD 784.7 Epistaxis 11/05/2007 CLEARY HEAD OF DATA, MAXINE GUZMANH 784.7 Epistaxis 11/05/2007 784.7 Epistaxis 11/05/2007 784.7 Epistaxis 11/05/2007 784.7 Epistaxis 11/05/2007 784.7 Epistaxis 11/05/2007 784.7 Epistaxis 11/05/2007 784.7 Epistaxis 11/05/2007 784.7 Epistaxis 11/05/2007 EVIN CARTWRIGHT MAXINE GUZMANH 784.7 Epistaxis 11/05/2007 LINDA HEAD OF DATA, LORI A 784.7 Epistaxis 11/05/2007 EVIN CARTWRIGHT MAXINE DACIA 784.7 Epistaxis 11/05/2007 QUINTANA DONATALIA K 784.7 Epistaxis 11/05/2007 [facility], GW[facility]YN R 784.7 Epistaxis 11/05/2007 [facility], GLEN A 784.7 Epistaxis 11/05/2007 EVIN CARTWRIGHT MAXINE DACIA 784.7 Epistaxis 11/05/2007 ABELINO FRIAS APRNYL A 784.7 Epistaxis 11/05/2007 [facility], GLEN A 784.7 Epistaxis 11/05/2007 784.7 Epistaxis 11/05/2007 LINDA HEAD OF DATA, LORI A 784.7 Epistaxis 11/05/2007 [facility], GLEN A 784.7 Epistaxis 11/05/2007 LINDA HEAD OF DATA, LORI A 784.7 Epistaxis 11/05/2007 QUINTANA DO, MARK K 784.7 Epistaxis 11/05/2007 [facility], GLEN A 784.7 Epistaxis 11/05/2007 LINDA HEAD OF DATA, LORI A 784.7 Epistaxis 11/05/2007 [facility], GLEN A 784.7 Epistaxis 11/05/2007 [facility], GLEN A 784.7 Epistaxis 11/05/2007 FILIPE LAGUNAS, JANNET 784.7 Epistaxis 11/05/2007 MAXINE CLEARY APRN 784.7 Epistaxis 11/05/2007 FILIPE LAGUNAS, JANNET 784.7 Epistaxis 11/05/2007 [facility], GLEN A 784.7 Epistaxis 11/05/2007 TRACIE RIVERA MD 784.7 Epistaxis 11/05/2007 [facility], GLEN A 784.7 Epistaxis 11/05/2007 [facility], GLEN A 784.7 Epistaxis 11/05/2007 HEVER BOUCHER APRN 784.7 Epistaxis 11/05/2007 MAXINE CLEARY APRN 784.7 Epistaxis 11/05/2007 CELSO RN, TOSHIA E [...] CELSO RN, TOSHIA E 784.7 Epistaxis 11/05/2007 [facility], [facility] R 784.7 Epistaxis 11/05/2007 ZAN AL M 784.7 Epistaxis 11/05/2007 ZAN AL M 784.7 Epistaxis 11/05/2007 CELSO NASH, TOSHIA E 784.7 Epistaxis 06/01/2008 V20.2 Preventive Medicine New Patient Evaluation Childhood -06/01/2008 V20.2 Preventive Medicine New Patient Evaluation Childhood -06/01/2008 JANNET DENT MD V20.2 Preventive Medicine New [...] Preventive Medicine New Patient Evaluation Childhood 07-1206/01/2008 [facility] Jackson V20.2 Preventive Medicine New Patient Evaluation Childhood 07-1206/01/2008 [facility], GLEN Junior V20.2 Preventive Medicine New Patient Evaluation Childhood 07-1206/01/2008 MAXINE CLEARY APRN V20.2 Preventive Medicine New Patient Evaluation Childhood 07-1206/01/2008 CHARLIE FRIAS APRN V20.2 Preventive Medicine New Patient Evaluation Childhood 07-1206/01/2008 [facility], GLEN Junior V20.2 Preventive Medicine New Patient Evaluation Childhood 07-1206/01/2008 V20.2 Preventive Medicine New Patient Evaluation Childhood 07-1206/01/2008 LORI MCKEON APRN V20.2 Preventive Medicine New Patient Evaluation Childhood 07-1206/01/2008 [facility], GLEN Junior V20.2 Preventive Medicine New Patient Evaluation Childhood 07-1206/01/2008 LORI MCKEON APRN V20.2 Preventive Medicine New Patient Evaluation Childhood 07-1206/01/2008 MARK QUINTANA DO V20.2 Preventive Medicine New Patient Evaluation Childhood 07-1206/01/2008 [facility]20.2 Preventive Medicine New Patient Evaluation Childhood 07-1206/01/2008 LORI MCKEON APRN V20.2 Preventive Medicine New Patient Evaluation Childhood 07-1206/01/2008 [facility], GLEN Junior V20.2 Preventive Medicine New Patient Evaluation Childhood 07-1206/01/2008 [facility], GLEN Junior V20.2 Preventive Medicine New Patient Evaluation Childhood 07-1206/01/2008 JANNET DENT MD V20.2 Preventive Medicine New Patient Evaluation Childhood 07-1206/01/2008 MAXINE CLEARY APRN V20.2 Preventive Medicine New Patient Evaluation Childhood 07-1206/01/2008 JANNET DENT MD V20.2 Preventive Medicine New Patient Evaluation Childhood 07-1206/01/2008 [facility], GLEN Junior V20.2 Preventive Medicine New Patient Evaluation Childhood 07-1206/01/2008 TRACIE RIVERA MD V20.2 Preventive Medicine New Patient Evaluation Childhood 07-1206/01/2008 [facility], GLEN Junior V20.2 Preventive Medicine New Patient Evaluation Childhood 07-1206/01/2008 [facility], GLEN Junior V20.2 Preventive Medicine New Patient [...] V20.2 Preventive Medicine New Patient Evaluation Childhood 5-06/01/2008 [facility], [facility] R V20.2 Preventive Medicine [...] V25.49 Surveillance Of Other Contraceptive Method 07/29/2008 [facility], [facility] R V25.49 Surveillance Of Other Contraceptive Method 07/29/2008 [facility], GLEN Junior V25.49 Surveillance Of Other Contraceptive Method 07/29/2008 MAXINE CLEARY APRN V25.49 Surveillance Of Other Contraceptive Method 07/29/2008 CHARLIE FRIAS APRN V25.49 Surveillance Of Other Contraceptive Method 07/29/2008 [facility], GLEN Junior V25.49 Surveillance Of Other Contraceptive Method 07/29/2008 V25.49 Surveillance Of Other Contraceptive Method 07/29/2008 LORI MCKEON APRN A V25.49 Surveillance Of Other Contraceptive Method 07/29/2008 [facility], GLEN Junior V25.49 Surveillance Of Other Contraceptive Method 07/29/2008 LORI MCKEON APRN A V25.49 Surveillance Of Other Contraceptive Method 07/29/2008 MARK QUINTANA DO V25.49 Surveillance Of Other Contraceptive Method 07/29/2008 [facility], GLEN Junior V25.49 Surveillance Of Other Contraceptive Method 07/29/2008 LORI MCKEON APRN A V25.49 Surveillance Of Other Contraceptive Method 07/29/2008 [facility], GLEN A V25.49 Surveillance Of Other Contraceptive Method 07/29/2008 [facility], GLEN Junior V25.49 Surveillance Of Other Contraceptive Method 07/29/2008 JANNET DENT MD V25.49 Surveillance Of Other Contraceptive Method 07/29/2008 MAXINE CLEARY APRN V25.49 Surveillance Of Other Contraceptive Method 07/29/2008 JANNET DENT MD V25.49 Surveillance Of Other Contraceptive Method 07/29/2008 [facility], GLEN Junior V25.49 Surveillance Of Other Contraceptive Method 07/29/2008 TRACIE RIVERA MD V25.49 Surveillance Of Other Contraceptive Method 07/29/2008 [facility], GLEN Junior V25.49 Surveillance Of Other Contraceptive Method 07/29/2008 [facility], GLEN Junior V25.49 Surveillance Of Other Contraceptive [...] Other Contraceptive Method 07/29/2008 TOSHIA HOUSTON RN E V25.49 Surveillance Of Other Contraceptive Method 07/29/2008 TOSHIA HOUSTON RN V25.49 Surveillance Of Other Contraceptive Method 07/29/2008 TOSHIA HOUSTON RN V25.49 Surveillance Of Other Contraceptive Method 07/29/2008 TOSHIA HOUSTON RN V25.49 Surveillance Of Other Contraceptive Method 07/29/2008 [facility] R V25.49 Surveillance Of [...] V05.3 Hepatitis Viral/all 12/10/2008 EVIN CARTWRIGHT MAXINE DACIA V05.8 Gardasil 12/10/2008 V05.3 Hepatitis Viral/all 12/10/2008 [...] MCKEON APRN V05.3 Hepatitis Viral/all 12/10/2008 LINDA HEAD OF DATA, LORI A V05.8 Gardasil 12/10/2008 CLEARY HEAD OF DATA, MAXINE PEDERSON V05.3 Hepatitis Viral/all 12/10/2008 CELARY HEAD OF DATA, MAXINE PEDERSON V05.8 Gardasil 12/10/2008 QUINTANA DO, MARK K V05.3 Hepatitis Viral/all 12/10/2008 QUINTANA DO, MARK K V05.8 Gardasil 12/10/2008 [facility], [place] R V05.3 Hepatitis Viral/all 12/10/2008 [facility], [facility] R V05.8 Gardasil 12/10/2008 [facility], GLEN A V05.3 Hepatitis Viral/all 12/10/2008 [facility], GLEN A V05.8 Gardasil 12/10/2008 CLEARY HEAD OF DATA, MAXINE PEDERSON V05.3 Hepatitis Viral/all 12/10/2008 CLEARY HEAD OF DATA, MAXINE PEDERSON V05.8 Gardasil 12/10/2008 RAJOTTE HEAD OF DATA, CHARLIE A V05.3 Hepatitis Viral/all 12/10/2008 RAJOTTE HEAD OF DATA, CHARLIE A V05.8 Gardasil 12/10/2008 [facility], GLEN A V05.3 Hepatitis Viral/all 12/10/2008 [facility], GLEN A V05.8 Gardasil 12/10/2008 V05.3 Hepatitis Viral/all 12/10/2008 V05.8 Gardasil 12/10/2008 LINDA HEAD OF DATA, LORI A V05.3 Hepatitis Viral/all 12/10/2008 LINDA HEAD OF DATA, LORI A V05.8 Gardasil 12/10/2008 [facility], GLEN A V05.3 Hepatitis Viral/all 12/10/2008 [facility], GLEN A V05.8 Gardasil 12/10/2008 LINDA HEAD OF DATA, LORI A V05.3 Hepatitis Viral/all 12/10/2008 LINDA HEAD OF DATA, LORI A V05.8 Gardasil 12/10/2008 QUINTANA DO, MARK K V05.3 Hepatitis Viral/all 12/10/2008 QUINTANA DO, MARK K V05.8 Gardasil 12/10/2008 [facility], GLEN A V05.3 Hepatitis Viral/all 12/10/2008 [facility], GLEN A V05.8 Gardasil 12/10/2008 LINDA HEAD OF DATA, LORI A V05.3 Hepatitis Viral/all 12/10/2008 LINDA HEAD OF DATA, LORI A V05.8 Gardasil 12/10/2008 [facility], GLEN A V05.3 Hepatitis Viral/all 12/10/2008 [facility], GLEN A V05.8 Gardasil 12/10/2008 [facility], GLEN A V05.3 Hepatitis Viral/all 12/10/2008 [facility], GLEN A V05.8 Gardasil 12/10/2008 FILIPE LAGUNAS, JANNET V05.3 Hepatitis Viral/all 12/10/2008 FILIPE LAGUNAS, JANNET V05.8 Gardasil 12/10/2008 CLEARY HEAD OF DATA, MAXINE DACIA V05.3 Hepatitis Viral/all 12/10/2008 CLEARY HEAD OF DATA, MAXINE DACIA V05.8 Gardasil 12/10/2008 FILIPE LAGUNAS, JANNET V05.3 Hepatitis Viral/all 12/10/2008 FILIPE LAGUNAS, JANNET V05.8 Gardasil 12/10/2008 [facility], GLEN A V05.3 Hepatitis Viral/all 12/10/2008 [facility], GLEN A V05.8 Gardasil 12/10/2008 MIGUEL LAGUNAS, TRACIE V05.3 Hepatitis Viral/all 12/10/2008 MIGUEL LAGUNAS, TRACIE V05.8 Gardasil 12/10/2008 [facility], GLEN A V05.3 Hepatitis Viral/all 12/10/2008 [facility], GLEN A V05.8 Gardasil 12/10/2008 [facility], GLEN A V05.3 Hepatitis Viral/all 12/10/2008 [facility], GLEN A V05.8 Gardasil 12/10/2008 CITLALY HEAD OF DATA, HEVER V05.3 Hepatitis Viral/all 12/10/2008 CITLALY HEAD OF DATA, HEVER V05.8 Gardasil 12/10/2008 CLEARY HEAD OF DATA, MAXINE GUZMANH V05.3 Hepatitis Viral/all 12/10/2008 CLEARY HEAD OF DATA, MAXINE PEDERSON V05.8 Gardasil 12/10/2008 CELSO RN, TOSHIA E V05.3 Hepatitis Viral/all 12/10/2008 CELSO RN, TOSHIA E V05.8 Gardasil 12/10/2008 HOUSTON RN, TOSHIA E V05.3 Hepatitis Viral/all 12/10/2008 CELSO RN, TOSHIA E V05.8 Gardasil 12/10/2008 CELSO RN, TOSHIA E V05.3 Hepatitis Viral/all 12/10/2008 CELSO RN, TOSHIA E V05.8 Gardasil 12/10/2008 CELSO RN, TOSHIA E V05.3 Hepatitis Viral/all 12/10/2008 HOUSTON RN, TOSHIA E V05.8 Gardasil 12/10/2008 CELSO RN, TOSHIA E V05.3 Hepatitis Viral/all 12/10/2008 CELSO RN, TOSHIA E V05.8 Gardasil 12/10/2008 CELSO RN, TOSHIA E V05.3 Hepatitis Viral/all 12/10/2008 CELSO RN, TOSHIA E V05.8 Gardasil 12/10/2008 CELSO RN, TOSHIA E V05.3 Hepatitis Viral/all 12/10/2008 CELSO RN, TOSHIA E V05.8 Gardasil 12/10/2008 CELSO RN, TOSHIA E V05.3 Hepatitis Viral/all 12/10/2008 CELSO RN, OTSHIA E V05.8 Gardasil 12/10/2008 CELSO RN, TOSHIA E V05.3 Hepatitis Viral/all 12/10/2008 CELSO RN, TOSHIA E V05.8 Gardasil 12/10/2008 [facility], [facility] R V05.3 Hepatitis Viral/all 12/10/2008 [facility], [facility] R V05.8 Gardasil 12/10/2008 [employer]IDE, ZAN M V05.3 Hepatitis Viral/all 12/10/2008 [employer]IDE, ZAN M V05.8 Gardasil 12/10/2008 [employer] MUSEUM GUIDE, ZAN M V05.3 Hepatitis Viral/all 12/10/2008 [employer] M[employer]IDE, ZAN M V05.8 Gardasil 12/10/2008 CELSO RN, TOSHIA E V05.3 Hepatitis Viral/all 12/10/2008 CELSO RN, TOSHIA E V05.8 Gardasil 12/27/2008 564.00 CONSTIPATION CHRONIC 12/27/2008 783.21 ABNORMAL WEIGHT LOSS 12/27/2008 787.02 nausea 12/27/2008 564.00 CONSTIPATION CHRONIC 12/27/2008 783.21 ABNORMAL WEIGHT LOSS 12/27/2008 787.02 nausea 12/27/2008 FILIPE LAGUNAS, JANNET 564.00 CONSTIPATION CHRONIC 12/27/2008 FILIPE LAGUNAS, JANNET 783.21 Abnormal Weight Loss 12/27/2008 FILIPE LAGUNAS, JANNET 787.02 Nausea 12/27/2008 EVIN CARTWRIGHT MAXINE DACIA 564.00 CONSTIPATION CHRONIC 12/27/2008 EVIN CARTWRIGHT MAXINE GUZMANH 783.21 Abnormal Weight Loss 12/27/2008 EVIN CARTWRIGHT MAXINE GUZMANH 787.02 Nausea 12/27/2008 564.00 CONSTIPATION CHRONIC 12/27/2008 [...] Abnormal Weight Loss 12/27/2008 787.02 Nausea 12/27/2008 EVIN CARTWRIGHT MAXINE DACIA 564.00 CONSTIPATION CHRONIC 12/27/2008 EVIN CARTWRIGHT MAXINE DACIA 783.21 Abnormal Weight Loss 12/27/2008 EVIN CARTWRIGHT MAXINE GUZMANH 787.02 Nausea 12/27/2008 LORI MCKEON APRN A 564.00 CONSTIPATION CHRONIC 12/27/2008 LORI MCKEON APRN A 783.21 Abnormal Weight Loss 12/27/2008 LINDA HEAD OF DATA, LORI A 787.02 Nausea 12/27/2008 MAXINE CLEARY APRN 564.00 CONSTIPATION CHRONIC 12/27/2008 MAXINE CLEARY APRN 783.21 Abnormal Weight Loss 12/27/2008 MAXINE CLEARY APRN 787.02 Nausea 12/27/2008 QUINTANA DO, MARK K 564.00 CONSTIPATION CHRONIC 12/27/2008 QUINTANA DO, MARK K 783.21 Abnormal Weight Loss 12/27/2008 QUINTANA DO, MARK K 787.02 Nausea 12/27/2008 [facility], GW[facility]YN R 564.00 CONSTIPATION CHRONIC 12/27/2008 [facility], [facility] R 783.21 Abnormal Weight Loss 12/27/2008 [facility], [facility] R 787.02 Nausea 12/27/2008 [facility], GLEN A 564.00 CONSTIPATION CHRONIC 12/27/2008 [facility], GLEN A 783.21 Abnormal Weight Loss 12/27/2008 [facility], GLEN A 787.02 Nausea 12/27/2008 MAXINE CLEARY APRN 564.00 CONSTIPATION CHRONIC 12/27/2008 MAXINE CLEARY APRN 783.21 Abnormal Weight Loss 12/27/2008 EVIN ACOSTANMAXINE 787.02 Nausea 12/27/2008 RAJMATTHEWE CHAY CHARLIE A 564.00 CONSTIPATION CHRONIC 12/27/2008 RAJMATTHEWE CHAY, CHARLIE A 783.21 Abnormal Weight Loss 12/27/2008 RAJJD CARTWRIGHT CHARLIE A 787.02 Nausea 12/27/2008 [facility], GLEN A 564.00 CONSTIPATION CHRONIC 12/27/2008 [facility], GLEN A 783.21 Abnormal Weight Loss 12/27/2008 [facility], GLEN A 787.02 Nausea 12/27/2008 564.00 CONSTIPATION CHRONIC 12/27/2008 783.21 Abnormal Weight Loss 12/27/2008 787.02 Nausea 12/27/2008 LINDA CARTWRIGHT LORI A 564.00 CONSTIPATION CHRONIC 12/27/2008 LINDAFAUSTO CARTWRIGHT LORI A 783.21 Abnormal Weight Loss 12/27/2008 LINDA CARTWRIGHT LORI A 787.02 Nausea 12/27/2008 [facility], GLEN A 564.00 CONSTIPATION CHRONIC 12/27/2008 [facility], GLEN A 783.21 Abnormal [facility]/27[facility] 787.[facility] Nausea 12/27/2008 LINDA HEAD OF DATA, LORI A 564.00 CONSTIPATION CHRONIC 12/27/2008 LINDA HEAD OF DATA, LORI A 783.21 Abnormal Weight Loss 12/27/2008 LINDA HEAD OF DATA, LORI A 787.02 Nausea 12/27/2008 QUINTANA DO, MARK K 564.00 CONSTIPATION CHRONIC 12/27/2008 QUINTANA DO, MARK K 783.21 Abnormal Weight Loss 12/27/2008 QUINTANA DO, MARK K 787.02 Nausea 12/27/2008 [facility] 564.00 CONSTIPATION CHRONIC 12/27/2008 [facility] A 783.21 Abnormal Weight Loss 12/27/2008 [facility], GLEN A 787.02 Nausea 12/27/2008 LINDA HEAD OF DATA, LORI A 564.00 CONSTIPATION CHRONIC 12/27/2008 LINDA HEAD OF DATA, LORI A 783.21 Abnormal Weight Loss 12/27/2008 LINDA HEAD OF DATA, LORI A 787.02 Nausea 12/27/2008 [facility], GLEN A 564.00 CONSTIPATION CHRONIC 12/27/2008 [facility], GLEN A 783.21 Abnormal Weight Loss 12/27/2008 [facility] 787.02 Nausea 12/27/2008 [facility], GLEN A 564.00 CONSTIPATION CHRONIC 12/27/2008 [facility], GLEN A 783.21 Abnormal Weight Loss 12/27/2008 [facility], GLEN A 787.02 Nausea 12/27/2008 JANNET DENT MD 564.00 CONSTIPATION CHRONIC 12/27/2008 JANNET DENT MD 783.21 Abnormal Weight Loss 12/27/2008 JANNET DENT MD 787.02 Nausea 12/27/2008 MAXINE CLEARY APRN 564.00 CONSTIPATION CHRONIC 12/27/2008 MAXINE CLEARY APRN 783.21 Abnormal Weight Loss 12/27/2008 MAXINE CLEARY APRN 787.02 Nausea 12/27/2008 JANNET DENT MD 564.00 CONSTIPATION CHRONIC 12/27/2008 FILIPE LAGUNAS, JANNET 783.21 Abnormal Weight Loss 12/27/2008 FILIPE LAGUNAS, JANNET 787.02 Nausea 12/27/2008 [facility], GLEN A 564.00 CONSTIPATION CHRONIC 12/27/2008 [facility], GLEN A 783.21 Abnormal Weight Loss 12/27/2008 [facility], GLEN A 787.02 Nausea 12/27/2008 TRACIE RIVERA MD 564.00 CONSTIPATION CHRONIC 12/27/2008 TRACIE RIVERA MD 783.21 Abnormal Weight Loss 12/27/2008 TRACIE RIVERA MD 787.02 Nausea 12/27/2008 [facility], GLEN A 564.00 CONSTIPATION CHRONIC 12/27/2008 [facility], GLEN A 783.21 Abnormal Weight Loss 12/27/2008 [facility], GLEN A 787.02 Nausea 12/27/2008 [facility], GLEN A 564.00 CONSTIPATION CHRONIC 12/27/2008 [facility], GLEN A 783.21 Abnormal Weight Loss 12/27/2008 [facility], GLEN A 787.02 Nausea 12/27/2008 HEVER BOUCHER APRN 564.00 CONSTIPATION CHRONIC 12/27/2008 HEVER BOUCHER APRN 783.21 Abnormal Weight Loss 12/27/2008 CITLALYORIN CARTWRIGHT HEVER 787.02 Nausea 12/27/2008 EVIN CARTWRIGHT MAXINE GUZMANH 564.00 CONSTIPATION CHRONIC 12/27/2008 EVIN CARTWRIGHT MAXINE [...] TOSHIA HOUSTON RN E 787.02 Nausea 12/27/2008 CELSO NASH, TOSHIA E 564.00 CONSTIPATION CHRONIC 12/27/2008 TOSHIA HOUSTON RN E 783.21 Abnormal Weight Loss 12/27/2008 TOSHIA HOUSTON RN E 787.02 Nausea 12/27/2008 CELSO NASH, TOSHIA E 564.00 CONSTIPATION CHRONIC 12/27/2008 CELSO NASH, TOSHIA E 783.21 Abnormal Weight Loss 12/27/2008 CELSO NASH, TOSHIA E 787.02 Nausea 12/27/2008 CELSO NASH, TOSHIA E 564.00 CONSTIPATION CHRONIC 12/27/2008 CELSO NASH, TOSHIA E 783.21 Abnormal Weight Loss 12/27/2008 CELSO NASH, TOSHIA E 787.02 Nausea 12/27/2008 [facility], [facility] R 564.00 CONSTIPATION CHRONIC 12/27/2008 [facility], [facility] R 783.21 Abnormal Weight Loss 12/27/2008 [facility], [facility] R 787.02 Nausea 12/27/2008 ZAN AL M 564.00 CONSTIPATION CHRONIC 12/27/2008 ZAN AL M 783.21 Abnormal Weight Loss 12/27/2008 ZAN AL M 787.02 Nausea 12/27/2008 ZAN AL M 564.00 CONSTIPATION CHRONIC 12/27/2008 ZAN AL M 783.21 Abnormal Weight Loss 12/27/2008 ZAN AL M 787.02 Nausea 12/27/2008 [place] RN, TOSHIA E 564.00 CONSTIPATION CHRONIC 12/27/2008 CELSO RN, TOSHIA E 783.21 Abnormal Weight Loss 12/27/2008 CELSO RN, TOSHIA E 787.02 Nausea 06/14/2009 477.9 ALLERGIC RHINITIS 06/14/2009 477.9 ALLERGIC RHINITIS 06/14/2009 FILIPE LAGUNAS, JNANET 477.9 ALLERGIC RHINITIS 06/14/2009 EVIN CARTWRIGHT MAXINE PEDERSON 477.9 ALLERGIC RHINITIS 06/14/2009 477.9 ALLERGIC RHINITIS 06/14/2009 477.9 ALLERGIC RHINITIS 06/14/2009 477.9 ALLERGIC RHINITIS 06/14/2009 477.9 ALLERGIC RHINITIS 06/14/2009 477.9 ALLERGIC RHINITIS 06/14/2009 477.9 ALLERGIC RHINITIS 06/14/2009 477.9 ALLERGIC RHINITIS 06/14/2009 EVIN CARTWRIGHT MAXINE GUZMANH 477.9 ALLERGIC RHINITIS 06/14/2009 LINDA CHAY, LORI A 477.9 ALLERGIC RHINITIS 06/14/2009 EVIN CARTWRIGHT MAXINE GUZMANH 477.9 ALLERGIC RHINITIS 06/14/2009 MARK QUINTANA DO 477.9 ALLERGIC RHINITIS 06/14/2009 [facility], [facility] Jackson 477.9 ALLERGIC RHINITIS 06/14/2009 [facility], GLEN A 477.9 ALLERGIC RHINITIS 06/14/2009 EVIN CARTWRIGHT MAXINE GUZMANH 477.9 ALLERGIC RHINITIS 06/14/2009 CHARLIE FRIAS APRN A 477.9 ALLERGIC RHINITIS 06/14/2009 [facility], GLEN A 477.9 ALLERGIC RHINITIS 06/14/2009 477.9 ALLERGIC RHINITIS 06/14/2009 LINDA HEAD OF DATA, LORI A 477.9 ALLERGIC RHINITIS 06/14/2009 [facility], GLEN A 477.9 ALLERGIC RHINITIS 06/14/2009 LINDA HEAD OF DATA, LORI A 477.9 ALLERGIC RHINITIS 06/14/2009 NATALI QUINTANA DOA K 477.9 ALLERGIC RHINITIS 06/14/2009 [facility], GLEN A 477.9 ALLERGIC RHINITIS 06/14/2009 LINDA HEAD OF DATA, LORI A 477.9 ALLERGIC RHINITIS 06/14/2009 [facility], GLEN A 477.9 ALLERGIC RHINITIS 06/14/2009 [facility], GLEN A 477.9 ALLERGIC RHINITIS 06/14/2009 FILIPE LAGUNAS, JANNET 477.9 ALLERGIC RHINITIS 06/14/2009 EVIN CARTWRIGHT, MAXINE PEDERSON 477.9 ALLERGIC RHINITIS 06/14/2009 FILIPE LAGUNAS, JANNET 477.9 ALLERGIC RHINITIS 06/14/2009 [facility], GLEN A 477.9 ALLERGIC RHINITIS 06/14/2009 MIGUEL LAGUNAS, TRACIE 477.9 ALLERGIC RHINITIS 06/14/2009 [facility], GLEN A 477.9 ALLERGIC RHINITIS 06/14/2009 [facility], GLEN A 477.9 ALLERGIC RHINITIS 06/14/2009 CITLALY HEAD OF DATA, HEVER 477.9 ALLERGIC RHINITIS 06/14/2009 EVIN CARTWRIGHT, [...] RN, TOSHIA E 477.9 ALLERGIC RHINITIS 06/14/2009 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 10/27/2009 LORI [...] Of Nonvenomous Arthropod 10/27/2009 MARK QUINTANA DO 919.4 Superficial Injury Of Other, Multiple, And Unspecified Sites, Insect Bite, Nonvenomous, Without Mention Of Infection 10/27/2009 MARK QUINTANA DO 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 10/27/2009 [facility] 919.4 Superficial Injury Of Other, Multiple, And Unspecified Sites, Insect Bite, Nonvenomous, Without Mention Of Infection 10/27/2009 [facility] 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 10/27/2009 [facility] 919.4 Superficial Injury Of Other, Multiple, And Unspecified Sites, Insect Bite , Nonvenomous, Without Mention Of Infection 10/27/2009 DEBBIE GLEN WYATT A 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 10/27/2009 EVIN CARTWRIGHT MAXINE DACIA 919.4 Superficial Injury Of Other, Multiple, And Unspecified Sites, Insect Bite, Nonvenomous, Without Mention Of Infection 10/27/2009 MAXINE CLEARY APRN 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 10/27/2009 CHARLIE FRIAS APRN A 919.4 Superficial Injury Of Other, Multiple, And Unspecified Sites, Insect Bite, Nonvenomous, Without Mention Of Infection 10/27/2009 RAJOTTE HEAD OF DATA, CHARLIE A 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 10/27/2009 [facility] 919.4 Superficial Injury Of Other, Multiple, [...] 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 10/27/2009 DEBBIE LUISGLEN A 919.4 Superficial Injury Of Other, Multiple, And Unspecified Sites, Insect Bite , Nonvenomous, Without Mention Of Infection 10/27/2009 GLEN TORRES A 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 10/27/2009 WOLF MCKEON APRNIDI A 919.4 Superficial Injury Of Other, Multiple, And Unspecified Sites, Insect Bite , Nonvenomous, Without Mention Of Infection 10/27/2009 WOLF MCKEON APRNIDI A 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 10/27/2009 MARK QUINTANA DO K 919.4 Superficial Injury Of Other, Multiple, And Unspecified Sites, Insect Bite, Nonvenomous, Without Mention Of Infection 10/27/2009 MARK QUINTANA DO 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 10/27/2009 DEBBIE LUISGLEN A 919.4 Superficial Injury Of Other, Multiple, And Unspecified Sites, Insect Bite , Nonvenomous,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 UPPER RESPIRATORY INFECTION 06/26/2012 LINDA HEAD OF DATA, LORI A 465.9 UPPER RESPIRATORY INFECTION 06/26/2012 [facility] 465.9 UPPER RESPIRATORY INFECTION 06/26/2012 [facility] 465.9 UPPER RESPIRATORY INFECTION 06/26/2012 JANNET DENT MD 465.9 UPPER RESPIRATORY INFECTION 06/26/2012 EVIN CARTWRIGHT, MAXINE PEDERSON 465.9 UPPER RESPIRATORY INFECTION 06/26/2012 JANNET DENT MD 465.9 UPPER RESPIRATORY INFECTION 06/26/2012 [facility] 465.9 UPPER RESPIRATORY INFECTION 06/26/2012 TRACIE RIVERA MD 465.9 UPPER RESPIRATORY INFECTION 06/26/2012 [facility] 465.9 UPPER RESPIRATORY INFECTION 06/26/2012 [facility] 465.9 UPPER RESPIRATORY INFECTION 06/26/2012 HEVER BOUCHER APRN 465.9 UPPER RESPIRATORY INFECTION 06/26/2012 EVIN CARTWRIGHT MAXINE PEDERSON 465.9 UPPER RESPIRATORY INFECTION 06/26/2012 CELSO RN, [...] TOSHIA E 465.9 UPPER RESPIRATORY INFECTION 06/26/2012 [facility], [facility] R 465.9 UPPER RESPIRATORY INFECTION 06/26/2012 ZAN AL M 465.9 UPPER RESPIRATORY INFECTION 06/26/2012 ZAN AL M 465.9 UPPER RESPIRATORY INFECTION 06/26/2012 CELSO NASH, TOSHIA E 465.9 UPPER RESPIRATORY INFECTION 07/28/2012 ANISHA BORGES L Ot 682.6 CELLULITIS OF LEG 07/28/2012 ANISHA BORGES L Ot 916.4 INSECT BITE HIP LEG 12/11/2012 LORI MCKEON APRN A V25.02 CONTRACEPTION - ANY METHOD 12/11/2012 MAXINE CLEARY APRN V25.02 CONTRACEPTION - ANY METHOD 12/11/2012 MARK QUINTANA DO V25.02 CONTRACEPTION - ANY METHOD 12/11/2012 [facility] Jackson V25.02 CONTRACEPTION - ANY METHOD 12/11/2012 [facility], GLEN Junior V25.02 CONTRACEPTION - ANY METHOD 12/11/2012 MAXINE CLEARY APRN V25.02 CONTRACEPTION - ANY METHOD 12/11/2012 CHARLIE FRIAS APRN V25.02 CONTRACEPTION - ANY METHOD 12/11/2012 [facility], GLEN Junior V25.02 CONTRACEPTION - ANY METHOD 12/11/2012 V25.02 CONTRACEPTION - ANY METHOD 12/11/2012 LORI MCKEON APRN A V25.02 CONTRACEPTION - ANY METHOD 12/11/2012 [facility], GLEN Junior V25.02 CONTRACEPTION - ANY METHOD 12/11/2012 WOLF MCKEON APRNIDI A V25.02 CONTRACEPTION - ANY METHOD 12/11/2012 MARK QUINTANA DO V25.02 CONTRACEPTION - ANY METHOD 12/11/2012 [facility], GLEN Junior V25.02 CONTRACEPTION - ANY METHOD 12/11/2012 WOLF MCKEON APRNIDI A V25.02 CONTRACEPTION - ANY METHOD 12/11/2012 [facility], GLEN Junior V25.02 CONTRACEPTION - ANY METHOD 12/11/2012 [facility], GLEN Junior V25.02 CONTRACEPTION - ANY METHOD 12/11/2012 JANNET DENT MD V25.02 CONTRACEPTION - ANY METHOD 12/11/2012 MAXINE CLEARY APRN V25.02 CONTRACEPTION - ANY METHOD 12/11/2012 FILIPE LAGUNAS, JANNET V25.02 CONTRACEPTION - ANY METHOD 12/11/2012 [facility], GLEN Junior V25.02 CONTRACEPTION - ANY METHOD 12/11/2012 TRACIE RIVERA MD V25.02 CONTRACEPTION - ANY METHOD 12/11/2012 [facility], GLEN Junior V25.02 CONTRACEPTION - ANY METHOD 12/11/2012 [facility], GLEN Junior V25.02 CONTRACEPTION - ANY METHOD 12/11/2012 HEVER BOUCHER APRN V25.02 CONTRACEPTION - ANY METHOD 12/11/2012 MAXINE CLEARY APRN V25.02 CONTRACEPTION - ANY METHOD 12/11/2012 TOSHIA HOUSTON RN E V25.02 CONTRACEPTION - ANY METHOD 12/11/2012 TOSHIA HOUSTON RN E V25.02 CONTRACEPTION - ANY METHOD 12/11/2012 TOSHIA HOUSTON RN E V25.02 CONTRACEPTION - ANY METHOD 12/11/2012 PRESTON HOUSTON RNISTA E V25.02 CONTRACEPTION - ANY METHOD 12/11/2012 TOSHIA HOUSTON RN E V25.02 CONTRACEPTION - ANY METHOD 12/11/2012 PRESTON HOUSTON RNISTA E V25.02 CONTRACEPTION - ANY METHOD 12/11/2012 PRESTON HOUSTON RNISTA E V25.02 CONTRACEPTION - ANY METHOD 12/11/2012 PRESTON HOUSTON RNISTA E V25.02 CONTRACEPTION - ANY METHOD 12/11/2012 PRESTON HOUSTON RNISTA E V25.02 CONTRACEPTION - ANY METHOD 12/11/2012 [facility] Jackson V25.02 CONTRACEPTION - ANY METHOD 12/11/2012 ZAN AL V25.02 CONTRACEPTION - ANY METHOD 12/11/2012 ZAN AL V25.02 CONTRACEPTION - ANY METHOD 12/11/2012 TOSHIA HOUSTON RN E V25.02 CONTRACEPTION - ANY METHOD 12/18/2012 MAXINE CLEARY APRN 296.32 MO DEPRESSIVE RECURRENT MODERATE 12/18/2012 MARK QUINTANA DO 296.32 MO DEPRESSIVE RECURRENT MODERATE 12/18/2012 [facility], [facility] R 296.32 MO DEPRESSIVE RECURRENT MODERATE 12/18/2012 [facility], GLEN Junior 296.32 MO DEPRESSIVE RECURRENT MODERATE 12/18/2012 EVIN CARTWRIGHT MAXINE DACIA 296.32 MO DEPRESSIVE RECURRENT MODERATE 12/18/2012 ABELINO FRIAS APRNYL A 296.32 MO DEPRESSIVE RECURRENT MODERATE 12/18/2012 [facility], GLEN A 296.32 MO DEPRESSIVE RECURRENT MODERATE 12/18/2012 296.32 MO DEPRESSIVE RECURRENT MODERATE 12/18/2012 LINDA HEAD OF DATA, LORI A 296.32 MO DEPRESSIVE RECURRENT MODERATE 12/18/2012 [facility], GLEN A 296.32 MO DEPRESSIVE RECURRENT MODERATE 12/18/2012 LINDA HEAD OF DATA, LORI A 296.32 MO DEPRESSIVE RECURRENT MODERATE 12/18/2012 MARK QUINTANA DO 296.32 MO DEPRESSIVE RECURRENT MODERATE 12/18/2012 [facility], GLEN A 296.32 MO DEPRESSIVE RECURRENT MODERATE 12/18/2012 WOLF MCKEON APRNIDI A 296.32 MO DEPRESSIVE RECURRENT MODERATE 12/18/2012 [facility], GLEN A 296.32 MO DEPRESSIVE RECURRENT MODERATE 12/18/2012 [facility], GLEN A 296.32 MO DEPRESSIVE RECURRENT MODERATE 12/18/2012 JANNET DENT MD 296.32 MO DEPRESSIVE RECURRENT MODERATE 12/18/2012 EVIN CARTWRIGHT MAXINE DACIA 296.32 MO DEPRESSIVE RECURRENT MODERATE 12/18/2012 JANNET DENT MD 296.32 MO DEPRESSIVE RECURRENT MODERATE 12/18/2012 [facility], GLEN A 296.32 MO DEPRESSIVE RECURRENT MODERATE 12/18/2012 TRACIE RIVERA MD 296.32 MO DEPRESSIVE RECURRENT MODERATE 12/18/2012 [facility], GLEN A 296.32 MO DEPRESSIVE RECURRENT MODERATE 12/18/2012 [facility], GLEN A 296.32 MO DEPRESSIVE RECURRENT MODERATE 12/18/2012 HEVER BOUCHER APRN 296.32 MO DEPRESSIVE RECURRENT MODERATE 12/18/2012 EVIN CARTWRIGHT MAXINE DACIA 296.32 MO DEPRESSIVE RECURRENT MODERATE 12/18/2012 TOSHIA HOUSTON RN 296.32 MO DEPRESSIVE RECURRENT MODERATE 12/18/2012 TOSHIA HOUSTON RN 296.32 MO DEPRESSIVE RECURRENT MODERATE 12/18/2012 TOSHIA HOUSTON RN E 296.32 MO DEPRESSIVE RECURRENT MODERATE 12/18/2012 TOSHIA HOUSTON RN 296.32 MO DEPRESSIVE RECURRENT MODERATE 12/18/2012 TOSHIA HOUSTON RN 296.32 MO DEPRESSIVE RECURRENT MODERATE 12/18/2012 HOUSTON RN, TOSHIA E 296.32 MO DEPRESSIVE RECURRENT MODERATE 12/18/2012 CELSO NASH, TOSHIA E 296.32 MO DEPRESSIVE RECURRENT MODERATE 12/18/2012 CELSO NASH, TOSHIA E 296.32 MO DEPRESSIVE RECURRENT MODERATE 12/18/2012 CELSO NASH, TOSHIA E 296.32 MO DEPRESSIVE RECURRENT MODERATE 12/18/2012 [facility], [facility] R 296.32 MO DEPRESSIVE RECURRENT MODERATE 12/18/2012 ZAN AL M 296.32 MO DEPRESSIVE RECURRENT MODERATE 12/18/2012 [facility], ZAN M 296.32 MO DEPRESSIVE RECURRENT MODERATE 12/18/2012 CELSO NASH, TOSHIA E 296.32 MO DEPRESSIVE RECURRENT MODERATE 12/19/2012 KATH NIETO HEAD OF DATA Ot 891.0 OPEN WND KNEE/LEG/ANKLE 12/19/2012 KATH NIETO HEAD OF DATA Ot E000.8 OTHER EXTERNAL CAUSE STATUS 12/19/2012 KATH NIETO HEAD OF DATA Ot E849.0 ACCIDENT IN HOME 12/19/2012 KATH NIETO HEAD OF DATA Ot E906.0 DOG BITE 01/05/2013 MARK QUINTANA DO 692.2 CONTACT DERMATITIS AND OTHER ECZEMA DUE TO SOLVENTS 01/05/2013 [facility], [facility] R 692.2 CONTACT DERMATITIS AND OTHER ECZEMA DUE TO SOLVENTS 01/05/2013 [facility] 692.[facility] CONTACT DERMATITIS AND OTHER ECZEMA DUE TO SOLVENTS 01/05/2013 MAXINE CLEARY APRN 692.2 CONTACT DERMATITIS AND OTHER ECZEMA DUE TO SOLVENTS 01/05/2013 CHARLIE FRIAS APRN A 692.2 CONTACT DERMATITIS AND OTHER ECZEMA DUE TO SOLVENTS 01/05/2013 [facility] 692.2 CONTACT DERMATITIS AND OTHER ECZEMA DUE TO SOLVENTS 01/05/2013 692.2 CONTACT DERMATITIS AND OTHER ECZEMA DUE TO SOLVENTS 01/05/2013 WOLF MCKEON APRNIDI A 692.2 CONTACT DERMATITIS AND OTHER ECZEMA DUE TO SOLVENTS 01/05/2013 [facility] 692.2 CONTACT DERMATITIS AND OTHER ECZEMA DUE TO SOLVENTS 01/05/2013 LINDA CARTWRIGHT LORI A 692.2 CONTACT DERMATITIS AND OTHER ECZEMA DUE TO SOLVENTS 01/05/2013 MARK QUINTANA DO 692.2 CONTACT DERMATITIS AND OTHER ECZEMA DUE TO SOLVENTS 01/05/2013 [facility] 692.2 CONTACT DERMATITIS AND OTHER ECZEMA DUE TO SOLVENTS 01/05/2013 LINDA CARTWRIGHT, LORI A 692.2 CONTACT DERMATITIS AND OTHER ECZEMA DUE TO SOLVENTS 01/05/2013 [facility], GLEN A 692.2 CONTACT DERMATITIS AND OTHER ECZEMA DUE TO SOLVENTS 01/05/2013 [facility] 692.2 CONTACT DERMATITIS AND OTHER ECZEMA DUE TO SOLVENTS 01/05/2013 JANNET DENT MD 692.2 CONTACT DERMATITIS AND OTHER ECZEMA DUE TO SOLVENTS 01/05/2013 MAXINE CLEARY APRN 692.2 CONTACT DERMATITIS AND OTHER ECZEMA DUE TO SOLVENTS 01/05/2013 JANNET DENT MD 692.2 CONTACT DERMATITIS AND OTHER ECZEMA DUE TO SOLVENTS 01/05/2013 [facility], GLEN A 692.2 CONTACT DERMATITIS AND OTHER ECZEMA DUE TO SOLVENTS 01/05/2013 TRACIE RIVERA MD 692.2 CONTACT DERMATITIS AND OTHER ECZEMA DUE TO SOLVENTS 01/05/2013 [facility], GLEN A 692.2 CONTACT DERMATITIS AND OTHER ECZEMA DUE TO SOLVENTS 01/05/2013 [facility], GLEN A 692.2 CONTACT DERMATITIS AND OTHER [...] AND OTHER ECZEMA DUE TO SOLVENTS 01/05/2013 PRESTON HOUSTON RNISTA E 692.2 CONTACT DERMATITIS AND OTHER ECZEMA DUE TO SOLVENTS 01/05/2013 PRESTON HOUSTON RNISTA E 692.2 CONTACT DERMATITIS AND OTHER ECZEMA DUE TO SOLVENTS 01/05/2013 PRESTON HOUSTON RNISTA E 692.2 CONTACT DERMATITIS AND OTHER ECZEMA DUE TO SOLVENTS 01/05/2013 PRESTON HOUSTON RNISTA E 692.2 CONTACT DERMATITIS AND OTHER ECZEMA DUE TO SOLVENTS 01/05/2013 PRESTON HOUSTON RNISTA E 692.2 CONTACT DERMATITIS AND OTHER ECZEMA DUE TO SOLVENTS 01/05/2013 TOSHIA HOUSTON RN E 692.2 CONTACT DERMATITIS AND OTHER ECZEMA DUE TO SOLVENTS 01/05/2013 PRESTON HOUSTON RNISTA E 692.2 CONTACT DERMATITIS AND OTHER ECZEMA DUE TO SOLVENTS 01/05/2013 [facility], [facility] R 692.2 CONTACT DERMATITIS AND OTHER ECZEMA DUE TO SOLVENTS 01/05/2013 [facility], ZAN M 692.2 CONTACT DERMATITIS AND OTHER ECZEMA DUE TO SOLVENTS 01/05/2013 [facility] [employer], ZAN M 692.2 CONTACT DERMATITIS AND OTHER ECZEMA DUE TO SOLVENTS 01/05/2013 CELSO NASH, TOSHIA E 692.2 CONTACT DERMATITIS AND OTHER ECZEMA DUE TO SOLVENTS 03/09/2013 MAXINE CLEARY APRN 295.70 P SCHIZO AFFECTIVE 03/09/2013 CHARLIE FRIAS APRN A 295.70 P SCHIZO AFFECTIVE 03/09/2013 [facility], GLEN A 295.70 P SCHIZO AFFECTIVE 03/09/2013 295.70 P SCHIZO AFFECTIVE 03/09/2013 LINDA ACOSTAN, LORI A 295.70 P SCHIZO AFFECTIVE 03/09/2013 [facility], GLEN A 295.70 P SCHIZO AFFECTIVE 03/09/2013 LINDA CARTWRIGHT, LORI A 295.70 P SCHIZO AFFECTIVE 03/09/2013 MARK QUINTANA DO 295.70 P SCHIZO AFFECTIVE 03/09/2013 [facility], GLEN A 295.70 P SCHIZO AFFECTIVE 03/09/2013 LINDA CARTWRIGHT, LORI A 295.70 P SCHIZO AFFECTIVE 03/09/2013 [facility], GLEN A 295.70 P SCHIZO AFFECTIVE 03/09/2013 [facility], GLEN A 295.70 P SCHIZO AFFECTIVE 03/09/2013 JANNET DENT MD 295.70 P SCHIZO AFFECTIVE 03/09/2013 MAXINE CLEARY APRN 295.70 P SCHIZO AFFECTIVE 03/09/2013 JANNET DENT MD 295.70 P SCHIZO AFFECTIVE 03/09/2013 [facility], GLEN A 295.70 P SCHIZO AFFECTIVE 03/09/2013 TRACIE RIVERA MD 295.70 P SCHIZO AFFECTIVE 03/09/2013 [facility], GLEN A 295.70 P SCHIZO AFFECTIVE 03/09/2013 [facility], GLEN A 295.70 P SCHIZO AFFECTIVE 03/09/2013 HEVER BOUCHER APRN 295.70 P SCHIZO AFFECTIVE 03/09/2013 MAXINE CLEARY APRN 295.70 P SCHIZO AFFECTIVE 03/09/2013 [place] RN, [...] TOSHIA E 295.70 P SCHIZO AFFECTIVE 03/09/2013 [facility], GWENDOLYN R 295.70 P SCHIZO AFFECTIVE 03/09/2013 [employer], ZAN M 295.70 P SCHIZO AFFECTIVE 03/09/2013 [employer], ZAN M 295.70 P SCHIZO AFFECTIVE 03/09/2013 CELSO RN, TOSHIA E 295.70 P SCHIZO AFFECTIVE 03/20/2013 ALTAGRACIA CARTWRIGHT, CHARLIE A 461.9 SINUSITIS ACUTE 03/20/2013 [facility], GLEN A 461.9 SINUSITIS ACUTE 03/20/2013 461.9 SINUSITIS ACUTE 03/20/2013 LINDA CARTWRIGHT, LORI A 461.9 SINUSITIS ACUTE 03/20/2013 [facility], GLEN A 461.9 SINUSITIS ACUTE 03/20/2013 LINDA CARTWRIGHT, LORI A 461.9 SINUSITIS ACUTE 03/20/2013 MARK QUINTANA DO 461.9 SINUSITIS ACUTE 03/20/2013 [facility], GLEN A 461.9 SINUSITIS ACUTE 03/20/2013 LINDA ACOSTAN, LORI A 461.9 SINUSITIS ACUTE 03/20/2013 [facility], GLEN A 461.9 SINUSITIS ACUTE 03/20/2013 [facility], GLEN A 461.9 SINUSITIS ACUTE 03/20/2013 JANNET DENT MD 461.9 SINUSITIS ACUTE 03/20/2013 MAXINE CLEARY APRN 461.9 SINUSITIS ACUTE 03/20/2013 JANNET DENT MD 461.9 SINUSITIS ACUTE 03/20/2013 [facility], GLEN A 461.9 SINUSITIS ACUTE 03/20/2013 TRACIE RIVERA MD 461.9 SINUSITIS ACUTE 03/20/2013 [facility], GLEN A 461.9 SINUSITIS ACUTE 03/20/2013 [facility], GLEN A 461.9 SINUSITIS ACUTE 03/20/2013 HEVER BOUCHER APRN 461.9 SINUSITIS ACUTE 03/20/2013 MAXINE CLEARY APRN 461.9 SINUSITIS ACUTE 03/20/2013 [place] RN, TOSHIA E 461.9 SINUSITIS ACUTE 03/20/2013 [place] RN, TOSHIA E 461.9 SINUSITIS ACUTE 03/20/2013 [place] RN, TOSHIA E 461.9 SINUSITIS ACUTE 03/20/2013 [place] RN, TOSHIA E 461.9 SINUSITIS ACUTE 03/20/2013 [place] RN, TOSHIA E 461.9 SINUSITIS ACUTE 03/20/2013 [place] RN, TOSHIA E 461.9 SINUSITIS ACUTE 03/20/2013 [place] RN, TOSHIA E 461.9 SINUSITIS ACUTE 03/20/2013 [place] RN, TOSHIA E 461.9 SINUSITIS ACUTE 03/20/2013 [place] RN, TOSHIA E 461.9 SINUSITIS ACUTE 03/20/2013 [facility], GWENDOLYN R 461.9 SINUSITIS ACUTE 03/20/2013 [employer], ZAN M 461.9 SINUSITIS ACUTE 03/20/2013 [employer], ZAN M 461.9 SINUSITIS ACUTE 03/20/2013 CELSO RN, TOSHIA E 461.9 SINUSITIS ACUTE 04/03/2013 [facility], GLEN A 314.01 ADHD COMBINED 04/03/2013 LINDA CARTWRIGHT, LORI A 314.01 ADHD COMBINED 04/03/2013 MARK QUINTANA DO 314.01 ADHD COMBINED 04/03/2013 [facility], GLEN A 314.01 ADHD COMBINED 04/03/2013 WOLF MCKEON APRNIDI A 314.01 ADHD COMBINED 04/03/2013 [facility], GLEN A 314.01 ADHD COMBINED 04/03/2013 [facility], GLEN A 314.01 ADHD COMBINED 04/03/2013 JANNET DENT MD 314.01 ADHD COMBINED 04/03/2013 MAXINE CLEARY APRN DACIA 314.01 ADHD COMBINED 04/03/2013 FILIPE LAGUNAS, JANNET 314.01 ADHD COMBINED 04/03/2013 [facility], GLEN A 314.01 ADHD COMBINED 04/03/2013 MIGUEL LAGUNAS, TRACIE 314.01 ADHD COMBINED 04/03/2013 [facility], GLEN A 314.01 ADHD COMBINED 04/03/2013 [facility], GLEN A 314.01 ADHD COMBINED 04/03/2013 CITLALY HEAD OF DATAHEVER Wood 314.01 ADHD COMBINED 04/03/2013 EVIN HEAD OF DATA, MAXINE PEDERSON 314.01 ADHD COMBINED 04/03/2013 CELSO RN, TOSHIA [...] RN, TOSHIA E 314.01 ADHD COMBINED 04/03/2013 [facility], GWENDOLYN R 314.01 ADHD COMBINED 04/03/2013 KINGS GALL[employer]USEUM GUIDE, ZAN M 314.01 ADHD COMBINED 04/03/2013 KINGS GALL[employer] MUSEUM GUIDE, ZAN M 314.01 ADHD COMBINED 04/03/2013 CELSO RN, TOSHIA E 314.01 ADHD COMBINED 04/06/2013 LINDA HEAD OF DATA, LORI A V74.5 STD SCREEN 04/06/2013 [facility], GLEN A V74.5 STD SCREEN 04/06/2013 LINDA HEAD OF DATA, LORI A V74.5 STD SCREEN 04/06/2013 MARK QUINTANA DO V74.5 STD SCREEN 04/06/2013 [facility], GELN A V74.5 STD SCREEN 04/06/2013 LINDA HEAD OF DATA, LORI A V74.5 STD SCREEN 04/06/2013 [facility], GLEN A V74.5 STD SCREEN 04/06/2013 [facility], GLEN A V74.5 STD SCREEN 04/06/2013 FILIPE LAGUNAS, JANNET V74.5 STD SCREEN 04/06/2013 EVIN CARTWRIGHT, MAXINE PEDERSON V74.5 STD SCREEN 04/06/2013 FILIPE LAGUNAS, JANNET V74.5 STD SCREEN 04/06/2013 [facility], GLEN A V74.5 STD SCREEN 04/06/2013 TRACIE RIVERA MD V74.5 STD SCREEN 04/06/2013 [facility], GLEN A V74.5 STD SCREEN 04/06/2013 [facility], GLEN A V74.5 STD SCREEN 04/06/2013 HEVER BOUCHER APRN V74.5 STD SCREEN 04/06/2013 MAXINE CLEARY APRN V74.5 STD SCREEN 04/06/2013 CELSO NASH, TOSHIA [...] NASH, TOSHIA E V74.5 STD SCREEN 04/06/2013 [facility], GWENDOLYN R V74.5 STD SCREEN 04/06/2013 ZAN AL M V74.5 STD SCREEN 04/06/2013 ZAN AL M V74.5 STD SCREEN 04/06/2013 CELSO NASH, TOSHIA E V74.5 STD SCREEN 04/27/2013 LINDA CARTWRIGHT, LORI A 623.5 LEUKORRHEA NOT SPECIFIED INFECTIVE 04/27/2013 [facility], GLEN A 623.5 LEUKORRHEA NOT SPECIFIED INFECTIVE 04/27/2013 [facility], GLEN A 623.5 LEUKORRHEA NOT SPECIFIED INFECTIVE 04/27/2013 JANNET DENT MD 623.5 LEUKORRHEA NOT SPECIFIED INFECTIVE 04/27/2013 EVIN CARTWRIGHT, MAXINE PEDERSON 623.5 LEUKORRHEA NOT SPECIFIED INFECTIVE 04/27/2013 JANNET DENT MD 623.5 LEUKORRHEA NOT SPECIFIED INFECTIVE 04/27/2013 [facility], GLEN A 623.5 LEUKORRHEA NOT SPECIFIED INFECTIVE 04/27/2013 TRACIE RIVERA MD 623.5 LEUKORRHEA NOT SPECIFIED INFECTIVE 04/27/2013 [facility], GLEN A 623.5 LEUKORRHEA NOT SPECIFIED INFECTIVE 04/27/2013 [facility], GLEN A 623.5 LEUKORRHEA NOT SPECIFIED INFECTIVE 04/27/2013 HEVER BOUCHER APRN 623.5 LEUKORRHEA NOT SPECIFIED INFECTIVE 04/27/2013 MAXINE [...] E 623.5 LEUKORRHEA NOT SPECIFIED INFECTIVE 04/27/2013 CELSO NASH, TOSHIA E 623.5 LEUKORRHEA NOT SPECIFIED INFECTIVE 04/27/2013 TOSHIA HOUSTON RN E 623.5 LEUKORRHEA NOT SPECIFIED INFECTIVE 04/27/2013 CELSO NASH, TOSHIA E 623.5 LEUKORRHEA NOT SPECIFIED INFECTIVE 04/27/2013 TOSHIA HOUSTON RN E 623.5 LEUKORRHEA NOT SPECIFIED INFECTIVE 04/27/2013 [facility], GWENDOLYN R 623.5 LEUKORRHEA NOT SPECIFIED INFECTIVE 04/27/2013 ZAN AL M 623.5 LEUKORRHEA NOT SPECIFIED INFECTIVE 04/27/2013 ZAN AL M 623.5 LEUKORRHEA NOT SPECIFIED INFECTIVE 04/27/2013 TOSHIA HOUSTON RN E 623.5 LEUKORRHEA NOT SPECIFIED INFECTIVE 06/11/2013 JANNET DENT MD 784.1 THROAT PAIN 06/11/2013 EVIN CARTWRIGHT MAXINE DACIA 784.1 THROAT PAIN 06/11/2013 JANNET DENT MD 784.1 THROAT PAIN 06/11/2013 [facility], GELN Junior 784.1 THROAT PAIN 06/11/2013 TRACIE RIVERA MD 784.1 THROAT PAIN 06/11/2013 [facility], GLEN A 300.02 AN GEN ANXIETY 06/11/2013 [facility], GLEN A 784.1 THROAT PAIN 06/11/2013 [facility], GLEN A 300.02 AN GEN ANXIETY 06/11/2013 [facility], GLEN A 784.1 THROAT PAIN 06/11/2013 CITLALY HEAD OF DATASUNIL WoodHEVER 300.02 AN GEN ANXIETY 06/11/2013 CITLALY HEAD OF DATA, HEVER 784.1 THROAT PAIN 06/11/2013 EVIN CARTWRIGHT MAXINE PEDERSON 300.02 AN GEN ANXIETY 06/11/2013 EVIN CARTWRIGHT MAXINE PEDERSON 784.1 THROAT PAIN 06/11/2013 TOSHIA HOUSTON RN 300.02 AN GEN ANXIETY 06/11/2013 TOSHIA HOUSTON RN 784.1 THROAT PAIN 06/11/2013 TOSHIA HOUSTON RN 300.02 AN GEN ANXIETY 06/11/2013 TOSHIA HOUSTON RN 784.1 THROAT PAIN 06/11/2013 TOSHIA HOUSTON RN E 300.02 AN GEN ANXIETY 06/11/2013 TOSHIA HOUSTON RN E 784.1 THROAT PAIN 06/11/2013 TOSHIA HOUSTON RN E 300.02 AN GEN ANXIETY 06/11/2013 TOSHIA HOUSTON RN E 784.1 THROAT PAIN 06/11/2013 TOSHIA HOUSTON RN E 300.02 AN GEN ANXIETY 06/11/2013 TOSHIA HOUSTON RN E 784.1 THROAT PAIN 06/11/2013 TOSHIA HOUSTON RN E 300.02 AN GEN ANXIETY 06/11/2013 TOSHIA HOUSTON RN E 784.1 THROAT PAIN 06/11/2013 PRESTON HOUSTON RNISTA E 300.02 AN GEN ANXIETY 06/11/2013 TOSHIA HOUSTON RN E 784.1 THROAT PAIN 06/11/2013 TOSHIA HOUSTON RN E 300.02 AN GEN ANXIETY 06/11/2013 TOSHIA HOUSTON RN E 784.1 THROAT PAIN 06/11/2013 TOSHIA HOUSTON RN E 300.02 AN GEN ANXIETY 06/11/2013 TOSHIA HOUSTON RN E 784.1 THROAT PAIN 06/11/2013 [facility]XI[facility] 06/11/2013 SELWYN GWENDOLYN WYATT 784.1 THROAT PAIN 06/11/2013 KINGS ELLEN ZAN M 300.02 AN GEN ANXIETY 06/11/2013 [facility] HU[facility], ZAN M 784.1 THROAT PAIN 06/11/2013 [facility] HU[facility]ES, ZAN M 300.02 AN GEN ANXIETY 06/11/2013 [facility], ZAN M 784.1 THROAT PAIN 06/11/2013 CELSO NASH, TOSHIA Moore 300.02 AN GEN ANXIETY 06/11/2013 TOSHIA HOUSTON RN 784.1 THROAT PAIN 07/07/2013 TRACIE RIVERA MD 300.02 AN GEN ANXIETY 07/07/2013 [facility], GLEN A 300.02 AN GEN ANXIETY 07/07/2013 [facility], GLEN A 300.02 AN GEN ANXIETY 07/07/2013 HEVER BOUCHER APRN 300.02 AN GEN ANXIETY 07/07/2013 MAXINE CLEARY APRN 300.02 AN GEN ANXIETY 07/07/2013 TOSHIA HOUSTON [...] HOUSTON RN 300.02 AN GEN ANXIETY 07/07/2013 [facility], GWENDOLYN Jackson 300.02 AN GEN ANXIETY 07/07/2013 [facility] ZAN M 300.02 AN GEN ANXIETY 07/07/2013 ZAN AL M 300.02 AN GEN ANXIETY 07/07/2013 TOSHIA HOUSTON RN 300.02 AN GEN ANXIETY 07/09/2013 KATH NIETO HEAD OF DATA Ot 845.00 SPRAIN OF ANKLE NOS 07/09/2013 KATH NIETO APRN Ot 959.7 LOWER LEG INJURY NOS 07/09/2013 KATH NIETO HEAD OF DATA Ot E000.8 OTHER EXTERNAL CAUSE STATUS 07/09/2013 KATH NIETO CHAY Ot E849.0 ACCIDENT IN HOME 07/09/2013 KATH NIETO HEAD OF DATA Ot E880.1 FALL ON OR FROM SIDEWALK CURB 08/31/2013 SRINIVASA GARCIA DO Ot 916.4 INSECT BITE HIP LEG 08/31/2013 SRINIVASA GARCIA DO Ot E906.4 NONVENOM ARTHROPOD BITE 12/09/2013 CELSO NASH, TOSHIA E 296.80 BIPOLAR DISORDER UNSPECIFIED 12/09/2013 CELSO NASH, TOSHIA Moore 296.80 BIPOLAR DISORDER UNSPECIFIED 12/09/2013 CELSO NASH, TOSHIA E 296.80 BIPOLAR DISORDER UNSPECIFIED 12/09/2013 CELSO NASH, TOSHIA Moore 296.80 BIPOLAR DISORDER UNSPECIFIED 12/09/2013 TOSHIA HOUSTON RN 296.80 BIPOLAR DISORDER UNSPECIFIED 12/09/2013 [facility], GWENDOLYN R 296.80 BIPOLAR DISORDER UNSPECIFIED 12/09/2013 ZAN AL 296.80 BIPOLAR DISORDER UNSPECIFIED 12/09/2013 ZAN AL 296.80 BIPOLAR DISORDER UNSPECIFIED 12/09/2013 TOSHIA HOUSTON RN 296.80 BIPOLAR DISORDER UNSPECIFIED 12/27/2013 LINO LIRA MD Ot 599.0 URIN TRACT INFECTION NOS 12/27/2013 LINO LIRA MD Ot 780.60 FEVER, UNSPECIFIED 04/15/2014 KATH NIETO HEAD OF DATA Ot 781.0 ABN INVOLUN MOVEMENT NEC 04/15/2014 KATH NIETO HEAD OF DATA Ot 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 06/06/2014 KATH NITEO HEAD OF DATA Ot 462 ACUTE PHARYNGITIS 09/24/2014 KATH NIETO HEAD OF DATA Ot 625.3 DYSMENORRHEA 09/24/2014 KATH NIETO HEAD OF DATA Ot 789.09 ABDOMINAL PAIN, OTHER SPECIFIED SITE 11/15/2014 SRINIVASA GARCIA DO Ot 842.00 SPRAIN OF WRIST NOS 11/15/2014 SRINIVASA GARCIA DO Ot 959.3 ELB/FOREARM/WRST INJ NOS 11/15/2014 SRINIVASA GARCIA DO Ot E000.8 OTHER EXTERNAL CAUSE STATUS 11/15/2014 SRINIVASA GARCIA DO Ot E006.0 ACTIVITIES INVOLVING ROLLER SKATING (INL 11/15/2014 SRINIVASA GARCIA DO Ot E885.1 ACCIDENT DUE TO ROLLERSKATE 11/16/2014 KATH NIETO HEAD OF DATA Ot 599.0 URIN TRACT INFECTION NOS 11/16/2014 KATH NIETO HEAD OF DATA Ot 787.01 NAUSEA WITH VOMITING 11/18/2014 JESSICA BRANHAM MD Ot 787.01 NAUSEA WITH VOMITING 11/18/2014 JESSICA BRANHAM MD Ot 787.03 VOMITING ALONE 07/18/2015 CHARITO LAGUNAS, GUICHO Wood Ot F17.210 NICOTINE DEPENDENCE, CIGARETTES, UNCOMPL 07/18/2015 CHARITO LAGUNAS, GUICHO Wood Ot F33.2 MAJOR DEPRESSV DISORDER, RECURRENT SEVER 07/18/2015 CHARITO LAGUNAS, GUICHO Wood Ot T43.221A POISN BY SELECTIVE SEROTONIN REUPTAKE IN 07/18/2015 DIAMOND AVINA ENVIRONMENTAL LAWYER Ot M23.232 DERANG OF MEDIAL MENISCUS DUE TO OLD TEA 07/29/2015 DIAMOND AVINA ENVIRONMENTAL LAWYER Ot M23.232 DERANG OF MEDIAL MENISCUS DUE TO OLD TEA 10/27/2015 KATH NIETO HEAD OF DATA Ot F41.9 ANXIETY DISORDER, UNSPECIFIED 10/28/2015 KATH NIETO HEAD OF DATA Ot F41.9 ANXIETY DISORDER, UNSPECIFIED 11/09/2015 ROCHELLE [...] URINARY TRACT INFECTION, SITE NOT SPECIF 11/11/2015 MITCH BYRD DO Ot R10.11 RIGHT UPPER QUADRANT PAIN 12/28/2015 MITCH BYRD DO Ot F12.10 CANNABIS ABUSE, UNCOMPLICATED 12/28/2015 MITCH BYRD DO Ot F17.210 NICOTINE DEPENDENCE, CIGARETTES, UNCOMPL 12/28/2015 MITCH BYRD DO Ot N39.0 URINARY TRACT INFECTION, SITE NOT SPECIF 12/28/2015 MITCH BYRD DO Ot R10.11 RIGHT UPPER QUADRANT PAIN 05/11/2016 Ot 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 05/11/2016 DIAMOND AVINA ENVIRONMENTAL LAWYER Ot M23.232 DERANG OF MEDIAL MENISCUS DUE TO OLD TEA 05/11/2016 KATH NIETO APRN Ot R23.8 OTHER SKIN CHANGES 05/13/2016 KATH NIETO APRN Ot R23.8 OTHER SKIN CHANGES 06/26/2017 KATH NIETO APRN Ot F17.210 NICOTINE DEPENDENCE, CIGARETTES, UNCOMPL 06/26/2017 KATH NIETO APRN Ot F31.9 BIPOLAR DISORDER, UNSPECIFIED 06/26/2017 KATH NIETO APRN Ot F41.9 ANXIETY DISORDER, UNSPECIFIED 06/26/2017 KATH NIETO APRN Ot F90.9 ATTENTION-DEFICIT HYPERACTIVITY DISORDER 06/26/2017 KATH NIETO APRN Ot R11.2 NAUSEA WITH VOMITING, UNSPECIFIED 06/26/2017 KATH NIETO APRN Ot R53.81 OTHER MALAISE 06/26/2017 KATH NIETO APRN Ot Z86.14 PERSONAL HISTORY OF METHICILLIN RESIS ST 06/26/2017 KATH NIETO APRN Ot Z88.8 ALLERGY STATUS TO OTH DRUG/MEDS/BIOL SUB 06/28/2017 KATH NIETO APRN Ot F17.210 NICOTINE DEPENDENCE, CIGARETTES, UNCOMPL 06/28/2017 KATH NIETO APRN Ot F31.9 BIPOLAR DISORDER, UNSPECIFIED 06/28/2017 KATH NIETO APRN Ot F41.9 ANXIETY DISORDER, UNSPECIFIED 06/28/2017 KATH NIETO APRN Ot F90.9 ATTENTION-DEFICIT HYPERACTIVITY DISORDER 06/28/2017 KATH NIETO APRN Ot R11.2 NAUSEA WITH VOMITING, UNSPECIFIED 06/28/2017 KATH NIETO APRN Ot R53.81 OTHER MALAISE 06/28/2017 KATH NIETO HEAD OF DATA Ot Z86.14 PERSONAL HISTORY OF METHICILLIN RESIS ST 06/28/2017 KATH NIETO HEAD OF DATA Ot Z88.8 ALLERGY STATUS TO OTH DRUG/MEDS/BIOL SUB 11/14/2017 Ot 389.9 11/14/2017 Ot 784.2 11/14/2017 Ot 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 11/14/2017 DIAMOND AVINA ENVIRONMENTAL LAWYER Ot M23.232 DERANG OF MEDIAL MENISCUS DUE TO OLD TEA Procedures Code Description Performed By Performed On Podiatry [place] 02/13/[address] SINUS W/O CONTRAST 02/19/2012 ISSAC PARISI 02/19/2012 97384 PSYCH IND W/MED CK 20 04/17/2012 03075 PSYCH DIAGNOSTIC EVALUATION 06/11/2012 92455 PSYTX PT&/FAMILY 45 MINUTES 08/01/2012 51048 PSYTX PT&/FAMILY 30 MINUTES 08/29/2012 60808 PSYTX PT&/FAMILY 45 MINUTES 01/27/2013 85829 URINE DRUG SCREEN (IN-HOUSE ) 02/05/2013 34201 PSYCH DIAGNOSTIC EVALUATION 02/11/2013 36537 PSYTX PT&/FAMILY 45 MINUTES 03/27/2013 95065 TEST, URINE (IN- HOUSE) 04/06/2013 15894 GC/CHLAM URINE (STATE) 04/08/2013 99038 PSYTX PT&/FAMILY 30 MINUTES 04/10/2013 54337 PSYTX PT&/FAMILY 45 MINUTES 04/27/2013 74308 TRICHOMONAS (IN-HOUSE) 04/27/2013 17892 CULTURE UROGENITAL 04/29/2013 90854 PSYTX PT&/FAMILY 30 MINUTES 05/14/2013 68781 PSYTX PT&/FAMILY 30 MINUTES 06/09/2013 32390 XRAY SOFT TISSUE NECK 1 OR MORE VIEWS 06/11/[address] NECK, SOFT TISSUE NECK W/ DYE 06/11/2013 OTOLARISSAC [place] 06/11/2013 09105 PSYTX PT&/FAMILY 30 MINUTES 07/06/2013 19068 PSYTX CRISIS INITIAL 60 MIN 07/07/2013 47342 PSYTX CRISIS EA ADDL 30 MIN 07/07/2013 69395 PSYTX PT&/FAMILY 30 MINUTES 07/16/2013 S0280 HEALTH PROMOTION 11/11/2013 S0280 HEALTH PROMOTION 11/12/2013 S0280 HEALTH PROMOTION 11/12/2013 S0281 CARE COORDINATION 11/18/2013 S0280 HEALTH PROMOTION 11/30/2013 S0280 COMPREHENSIVE CARE MANAGEMENT 12/24/2013 S0281 CARE COORDINATION 12/24/2013 S0281 CARE COORDINATION 12/24/2013 68956 URINE DRUG SCREEN (IN-HOUSE ) 12/25/2013 S0280 PATIENT AND FAMILY SUPPORT 12/30/2013 10827 PSYCH DIAGNOSTIC EVALUATION 12/30/2013 S0281 CARE COORDINATION 01/01/2014 S0280 PATIENT AND FAMILY SUPPORT 01/01/2014 S0280 HEALTH PROMOTION 01/27/2014 26855 PSYTX PT&/FAMILY 45 MINUTES 03/03/2014 S0280 HEALTH [...] - 03/02/16 14:52 Prolactin 78.9 ng/mL 4.8-23.3 Complete blood count (CBC) with automated white blood cell (WBC) differential - 06/26/17 20:24 Blood leukocytes automated count (number/volume) 10.4 10*3/uL 4.3-11.0 Blood erythrocytes automated count (number/volume) 4.32 10*6/uL 4.35-5.85 Venous blood hemoglobin measurement (mass/volume) 12.7 g/dL 11.5-16.0 Blood hematocrit (volume fraction) 37 % 35-52 Automated erythrocyte mean corpuscular volume 85 [foz_us] 80-99 Automated erythrocyte mean corpuscular hemoglobin (mass per erythrocyte) 29 pg 25-34 Automated erythrocyte mean corpuscular hemoglobin concentration measurement ( mass/volume) 35 g/dL 32-36 Automated erythrocyte distribution width ratio 13.9 % 10.0-14.5 Automated blood platelet count (count/volume) 293 10*3/uL 130-400 Automated blood platelet mean volume measurement 9.9 [foz_us] 7.4-10.4 Automated blood neutrophils/100 leukocytes 61 % 42-75 Automated blood lymphocytes/100 leukocytes 31 % 12-44 Blood monocytes/100 leukocytes 5 % 0-12 Automated blood eosinophils/100 leukocytes 3 % 0-10 Automated blood basophils/100 leukocytes 0 % 0-10 Blood neutrophils automated count (number/volume) 6.3 10*3 1.8-7.8 Blood lymphocytes automated count (number/volume) 3.2 10*3 1.0-4.0 Blood monocytes automated count (number/volume) 0.5 10*3 0.0-1.0 Automated eosinophil count 0.3 10*3/uL 0.0-0.3 Automated blood basophil count (count/volume) 0.0 10*3/uL 0.0-0.1 Comprehensive metabolic panel - 06/26/17 20:24 Serum or plasma sodium measurement (moles/volume) 139 mmol/L 135-145 Serum or plasma potassium measurement (moles/volume) 3.5 mmol/L 3.6-5.0 Serum or plasma chloride measurement (moles/volume) 108 mmol/L 98-107 Carbon dioxide 20 mmol/L 21-32 Serum or plasma anion gap determination (moles/volume) 11 mmol/L 5-14 Serum or plasma urea nitrogen measurement (mass/volume) 16 mg/dL 7-18 Serum or plasma creatinine measurement (mass/volume) 0.73 mg/dL 0.60-1.30 Serum or plasma urea nitrogen/creatinine mass ratio 22 NRG Serum or plasma creatinine measurement with calculation of estimated glomerular filtration rate > NRG Serum or plasma glucose measurement (mass/volume) 80 mg/dL 70-105 Serum or plasma calcium measurement (mass/volume) 9.4 mg/dL 8.5-10.1 Serum or plasma total bilirubin measurement (mass/volume) 0.3 mg/dL 0.1-1.0 Serum or plasma alkaline phosphatase measurement (enzymatic activity/volume) 80 U/L 40-136 Serum or plasma aspartate aminotransferase measurement (enzymatic activity/ volume) 15 U/L 5-34 Serum or plasma alanine aminotransferase measurement (enzymatic activity/volume ) 7 U/L 0-55 Serum or plasma protein measurement (mass/volume) 7.9 g/dL 6.4-8.2 Serum or plasma albumin measurement (mass/volume) 4.7 g/dL 3.2-4.5 Complete urinalysis with reflex to culture - 06/26/17 21:10 Urine color determination YELLOW NRG Urine clarity determination CLEAR NRG Urine pH measurement by test strip 5 5-9 Specific gravity of urine by test strip 1.020 1.016- 1.022 Urine protein assay by test strip, semi-quantitative NEGATIVE NEGATIVE Urine glucose detection by automated test strip NEGATIVE NEGATIVE Erythrocytes detection in urine sediment by light microscopy NEGATIVE NEGATIVE Urine ketones detection by automated test strip 3+ NEGATIVE Urine nitrite detection by test strip NEGATIVE NEGATIVE Urine total bilirubin detection by test strip NEGATIVE NEGATIVE Urine urobilinogen measurement by automated test strip (mass/volume) 1 mg/dL NORMAL Urine leukocyte esterase detection by dipstick 1+ NEGATIVE Automated urine sediment erythrocyte count by microscopy (number/high power field) NONE NRG Automated urine sediment leukocyte count by microscopy (number/high power field ) [HPF] NRG Bacteria detection in urine sediment by light microscopy FEW NRG Squamous epithelial cells detection in urine sediment by light microscopy 2-5 NRG Crystals detection in urine sediment by light microscopy NONE NRG Casts detection in urine sediment by light microscopy NONE NRG Mucus detection in urine sediment by light microscopy SMALL NRG Complete urinalysis with reflex to culture YES NRG Urine Trichomonas species detection by light microscopy FEW NRG Bacterial urine culture - 06/26/17 21:10 Bacterial urine culture [id number] NRG COLONY COUNT >100,000/ML NRG FTX;REPORTABLE PLUS, NRG URINE CULTURE RESULTS <10,000/ML NRG FREE TEXT ENTRY 2 MIXED GRAM POSITIVES <10,000/ML NRG CULTURE, GENITAL - 07/08/17 16:23 CULTURE, GENITAL SEE NOTE NRG Encounters ACCT No. Visit Date/Time Discharge Status Pt. Type Provider Facility Loc./Unit Complaint [id number] 01/16/2018 16:31:28 01/16/2018 23:59:59 CLS Outpatient Dai Bragg [id number] 11/10/2015 05:05:00 Document Registration [id number] 06/26/2017 20:02:00 06/26/2017 21:38:00 DIS Emergency KATH NIETO APRN [facility] ER VOMITING BLOOD [id number] 05/11/2016 19:49:00 05/11/2016 21:27:00 DIS Emergency KATH NIETO APRN [facility] ER SORE ON BUTTOCKS [id number] 11/09/2015 18:59:00 11/09/2015 20:15:00 DIS Emergency MITCH BYRD DO [facility] ER ABD PAIN [id number] 10/27/2015 15:09:00 10/27/2015 16:15:00 DIS Emergency KATH NIETO APRN [facility] ER PSYCH [id number] 07/17/2015 21:51:00 07/18/2015 11:40:00 DIS Inpatient GUICHO MCNEILL MD [facility] ICU OVERDOSE [id number] 07/15/2015 18:32:00 07/15/2015 23:59:59 CLS Outpatient DIAMOND AVINA [facility] RAD DERANGEMENT OF MEDIAL MENISCUS DUE TO OLD TEAR [id number] 11/18/2014 12:29:00 11/18/2014 13:46:00 DIS Emergency JESSICA BRANHAM MD [facility] ER VOMITING [id number] 11/16/2014 22:00:00 11/16/2014 22:53:00 DIS Emergency KATH NIETO APRN [facility] ER VOMITING BLOOD [id number] 11/15/2014 21:39:00 11/15/2014 23:09:00 DIS Emergency SRINIVASA GARCIA DO [facility] ER L WRIST PAIN/INJ [id number] 09/24/2014 16:09:00 09/24/2014 17:32:00 DIS Emergency KATH NIETO APRN [facility] ER ABD PAIN [id number] 06/06/2014 16:56:00 06/06/2014 17:31:00 DIS Emergency KATH NIETO APRN [facility] ER FEVER,SORE THROAT [id number] 04/15/2014 22:21:00 04/15/2014 23:40:00 DIS Emergency KATH NIETO APRN [facility] ER ADVERSE REACTION [id number] 12/27/2013 20:22:00 12/27/2013 22:02:00 DIS Emergency LINO LIRA MD [facility] ER BODY ACHES, FEVER [id number] 08/31/2013 20:05:00 08/31/2013 20:59:00 DIS Emergency SRINIVASA GARCIA DO [facility] ER INSECT BITE/STING [id number] 07/09/2013 20:49:00 07/09/2013 21:23:00 DIS Emergency KATH NIETO APRN [facility] ER L FOOT PAIN [id number] 12/19/2012 17:42:00 12/19/2012 18:28:00 DIS Emergency KATH NIETO APRN [facility] ER DOG BITE [id number] 07/28/2012 20:10:00 07/28/2012 21:05:00 DIS Emergency ANISHA BORGES [facility] ER SPIDER BITE ON LEG [id number] 04/11/2018 16:14:00 ACT Emergency LINDA LOUISE MD [facility] ER OVERDOSE [id number] 11/14/2017 01:30:00 Document Registration [id number] 11/14/2017 01:30:00 Document Registration [id number] 11/14/2017 01:30:00 Document Registration [id number] 11/14/2017 01:30:00 Document Registration [id number] 11/14/2017 01:30:00 Document Registration [id number] 11/14/2017 01:30:00 Document Registration [id number] 06/14/2012 21:57:00 Document Registration [id number] 02/19/2012 15:18:00 Document Registration [id number] 12/23/2011 03:14:00 Document Registration [id number] 03/18/2011 18:47:00 Document Registration [id number] 06/26/2010 00:18:00 Document Registration [id number] 04/19/2010 21:35:00 Document Registration [id number] 02/17/2010 22:38:00 Document Registration [id number] 09/12/2005 15:05:00 Document Registration [id number] 03/03/2016 08:05:00 Document Registration [id number] 02/01/2016 10:05:00 Document Registration [id number] 05/25/2014 14:30:00 05/25/2014 23:59:59 CLS Outpatient TOSHIA HOUSTON RN [id number] 03/03/2014 16:21:00 03/03/2014 23:59:59 CLS Outpatient ZAN [place] [id number] 03/03/2014 16:21:00 03/03/2014 23:59:59 CLS Outpatient ZAN [place] [id number] 03/02/2014 15:51:00 03/02/2014 23:59:59 CLS Outpatient GWENDOLYN DUVALL [id number] 02/03/2014 13:15:00 02/03/2014 23:59:59 CLS Outpatient TOSHIA HOUSTON RN [id number] 01/19/2014 15:15:00 01/19/2014 23:59:59 CLS Outpatient TOSHIA HOUSTON RN [id number] 12/30/2013 08:30:00 12/30/2013 23:59:59 CLS Outpatient TOSHIA HOUSTON RN [id number] 12/09/2013 16:01:00 12/09/2013 23:59:59 CLS Outpatient TOSHIA HOUSTON RN [id number] 11/23/2013 16:00:00 11/23/2013 23:59:59 CLS Outpatient TOSHIA HOUSTON RN [id number] 11/18/2013 00:00:00 11/18/2013 23:59:59 CLS Outpatient TOSHIA HOUSTON RN [id number] 11/03/2013 16:00:00 11/03/2013 23:59:59 CLS Outpatient TOSHIA HOUSTON RN [id number] 11/03/2013 00:00:00 11/03/2013 23:59:59 CLS Outpatient TOSHIA HOUSTON RN [id number] 10/12/2013 15:40:00 10/12/2013 23:59:59 CLS Outpatient EVIN CARTWRIGHT MAXINE PEDERSON [id number] 10/12/2013 14:00:00 10/12/2013 23:59:59 CLS Outpatient TOSHIA HOUSTON RN [id number] 07/16/2013 14:25:00 07/16/2013 23:59:59 CLS Outpatient GLEN TORRES [id number] 07/07/2013 11:23:00 07/07/2013 23:59:59 CLS Outpatient TRACIE RIVERA MD [id number] 07/07/2013 11:23:00 07/07/2013 23:59:59 CLS Outpatient HEVER BOUCHER APRN [id number] 07/07/2013 08:55:00 07/07/2013 23:59:59 CLS Outpatient GLEN TORRES [id number] 07/06/2013 13:50:00 07/06/2013 23:59:59 CLS Outpatient GLEN TORRES [id number] 06/11/2013 15:58:00 06/11/2013 23:59:59 CLS Outpatient EVIN CARTWRIGHT MAXINE PEDERSON [id number] 06/11/2013 07:53:00 06/11/2013 23:59:59 CLS Outpatient JANNET DENT MD [id number] 06/11/2013 07:53:00 06/11/2013 23:59:59 CLS Outpatient JANNET DENT MD [id number] 06/09/2013 13:15:00 06/09/2013 23:59:59 CLS Outpatient GLEN TORRES [id number] 05/14/2013 13:40:00 05/14/2013 23:59:59 CLS Outpatient GLEN TORRES [id number] 04/27/2013 17:46:00 04/27/2013 23:59:59 CLS Outpatient LORI MCKEON APRN [id number] 04/27/2013 13:50:00 04/27/2013 23:59:59 CLS Outpatient LEWIS LSCSGLEN [id number] 04/24/2013 15:37:00 04/24/2013 23:59:59 CLS Outpatient MARK QUINTANA DO [id number] 04/10/2013 13:40:00 04/10/2013 23:59:59 CLS Outpatient LEWIS LSCSGLEN [id number] 04/06/2013 17:57:00 04/06/2013 23:59:59 CLS Outpatient LINDA HEAD OF DATALORI Wood [id number] 04/06/2013 17:57:00 04/06/2013 23:59:59 CLS Outpatient WOLF MCKEON APRNCOLLIN Junior [id number] 03/27/2013 09:30:00 03/27/2013 23:59:59 CLS Outpatient LEWIS LSCSGLEN [id number] 03/20/2013 10:12:00 03/20/2013 23:59:59 CLS Outpatient JOSE ROTTE HEAD OF DATA, CHARLIE Junior [id number] 03/09/2013 15:24:00 03/09/2013 23:59:59 CLS Outpatient CLEARY HEAD OF DATAMAXINE [id number] 02/09/2013 16:11:00 02/09/2013 23:59:59 CLS Outpatient LEWIS LSCSGLEN [id number] 01/23/2013 15:54:00 01/23/2013 23:59:59 CLS Outpatient SELWYN LSCSGWENDOLYN Renetta [id number] 01/05/2013 17:41:00 01/05/2013 23:59:59 CLS Outpatient MARIANO WOODY MARK West [id number] 12/18/2012 16:03:00 12/18/2012 23:59:59 CLS Outpatient CLEARY HEAD OF DATAMAXINE [id number] 12/11/2012 17:56:00 12/11/2012 23:59:59 CLS Outpatient LINDAWOLF Wood APRNCOLLIN Junior [id number] 10/16/2012 14:58:00 10/16/2012 23:59:59 CLS Outpatient CLEARY HEAD OF DATAMAXINE [id number] 05/21/2012 16:06:00 05/21/2012 23:59:59 CLS Outpatient [id number] 03/14/2012 13:35:00 03/14/2012 23:59:59 CLS Outpatient MAXINE CLEARY APRN [id number] 02/19/2012 10:34:00 02/19/2012 23:59:59 CLS Outpatient JANNET DENT MD [id number] 02/13/2012 15:30:00 02/13/2012 23:59:59 CLS Outpatient [id number] 01/29/2012 10:06:00 01/29/2012 23:59:59 CLS Outpatient [id number] 04/03/2013 15:46:00 Document Registration [id number] 10/09/2012 12:56:00 Document Registration [id number] 08/28/2012 09:12:00 Document Registration [id number] 08/19/2012 12:55:00 Document Registration [id number] 07/30/2012 07:58:00 Document Registration [id number] 06/26/2012 09:35:00 Document Registration [id number] 06/11/2012 08:02:00 Document Registration [email or web address] 11/18/2014 12:29:46 ACT Document Registration [id number] 03/27/2018 11:00:00 03/27/2018 23:59:59 CLS Outpatient GUI KAUFMAN APRN [facility] [id number] 07/08/2017 15:00:00 Document Registration
--- NOTE | 2018-04-11 17:25 | NUR ---
PT STATES SHE HAS NO PLANS OR INTINTIONS OF HARMING OR KILLING HERSELF. STATES SHE DID NOT OVERDOSE FOR THOSE REASONS.
[2018-04-11 18:11] LABS: BILIRUBIN,URINE NEGATIVE (NEGATIVE); CLARITY,URINE CLEAR; COLOR,URINE YELLOW; GLUCOSE, URINE (UA) NEGATIVE (NEGATIVE); KETONES,URINE NEGATIVE (NEGATIVE); LEUKOCYTE ESTERASE ,URINE 3+ (NEGATIVE); NITRITE,URINE NEGATIVE (NEGATIVE); PH,URINE 6 (5-9); PROTEIN,URINE 1+ (NEGATIVE); UROBILINOGEN,URINE 1 MG/DL (NORMAL)
[2018-04-11 18:18] LABS: HCG,QUALITATIVE URINE NEGATIVE (NEGATIVE)
[2018-04-11 18:26] LABS: BASOPHILS % (AUTO) 0 % (0-10); EOSINOPHILS # (AUTO) 0.2 10^3/uL (0.0-0.3); EOSINOPHILS % (AUTO) 3 % (0-10); HEMATOCRIT 40 % (35-52); HEMOGLOBIN 13.2 G/DL (11.5-16.0); LYMPHOCYTES # (AUTO) 2.4 X 10^3 (1.0-4.0); LYMPHOCYTES % (AUTO) 31 % (12-44); MEAN CORPUSCULAR HEMOGLOBIN 29 PG (25-34); MEAN CORPUSCULAR HGB CONC 33 G/DL (32-36); MEAN CORPUSCULAR VOLUME 88 FL (80-99); MEAN PLATELET VOLUME 9.5 FL (7.4-10.4); MONOCYTES # (AUTO) 0.6 X 10^3 (0.0-1.0); MONOCYTES % (AUTO) 8 % (0-12); NEUTROPHILS # (AUTO) 4.6 X 10^3 (1.8-7.8); NEUTROPHILS % (AUTO) 58 % (42-75); PLATELET COUNT 282 10^3/uL (130-400); RED CELL DISTRIBUTION WIDTH 13.9 % (10.0-14.5); WHITE BLOOD COUNT 7.9 10^3/uL (4.3-11.0)
[2018-04-11 18:27] LABS: BACTERIA,URINE MODERATE /HPF
[2018-04-11 18:30] LABS: AMPHETAMINE SCREEN, URINE NEGATIVE (NEGATIVE); BARBITURATE SCREEN URINE NEGATIVE (NEGATIVE); BENZODIAZEPINES SCREEN URINE NEGATIVE (NEGATIVE); CANNABINOID SCREEN, URINE POSITIVE (NEGATIVE); COCAINE SCREEN URINE NEGATIVE (NEGATIVE); METHADONE STAT NEGATIVE (NEGATIVE); METHAMPHETAMINE SCREEN URINE S NEGATIVE (NEGATIVE); OPIATE SCREEN URINE NEGATIVE (NEGATIVE); OXYCODONE STAT NEGATIVE (NEGATIVE); PROPOXYPHENE STAT NEGATIVE (NEGATIVE); TRICYCLIC ANTIDEPRESSANTS SCRE NEGATIVE (NEGATIVE)
[2018-04-11 18:43] LABS: ALANINE AMINOTRANSFERASE 11 U/L (0-55); ALBUMIN 4.6 GM/DL (3.2-4.5); ALKALINE PHOSPHATASE 73 U/L (40-136); BILIRUBIN,TOTAL 0.5 MG/DL (0.1-1.0); BUN/CREATININE RATIO 13; CALCIUM 9.4 MG/DL (8.5-10.1); CARBON DIOXIDE 23 MMOL/L (21-32); CHLORIDE 105 MMOL/L (98-107); GFR ESTIMATED > 60; GLUCOSE 86 MG/DL (70-105); POTASSIUM 3.6 MMOL/L (3.6-5.0); SALICYLATE < 5.0 MG/DL (5.0-20.0); SODIUM 138 MMOL/L (135-145); TOTAL PROTEIN 7.6 GM/DL (6.4-8.2)
--- NOTE | 2018-04-11 18:44 | NUR ---
CC MENTAL HEALTH SCREENER HERE TO SEE PT.
[2018-04-11 18:46] LABS: ACETAMINOPHEN < 10 UG/ML (10-30)
--- NOTE | 2018-04-11 18:53 | NUR ---
REPORT GIVEN TO CARMEN NASH.
--- NOTE | 2018-04-11 19:13 | ED Psychosocial ---
General Chief Complaint: Overdose Stated Complaint: OVERDOSE Nursing Triage Note: Pt ambulatory to triage. Pt reports, "I may have overdosed. I have blackout overdoses." Pt reports thinking pt took approximately 5-6 Latuda 80 mg approximately an hour [employer]. Pt reports, "I directed myself to some pills. I blakcout when I get depressed." Pt denies feeling suicidal during assessment. Pt reports many stressors in life and feeling manic at the moment. Pt accompanied by mother. Source: patient Exam Limitations: no limitations History of Present Illness Date Seen by Provider: Apr 11, 2018 Time Seen by Provider: 17:51 Initial Comments 23-year-old female who is brought to the emergency room by her mother for a possible overdose. The patient reports that she has episodes of blacking out/ spacing out or she doesn't have control of herself and hears voices that tell her to take medications. She reports taking 5 of her 80 mg Latuda. The patient denies thoughts of suicide and is adamant that this was not a suicide attempt. She reports that she is under an immense amount of stress and is feeling manic. She has been diagnosed with schizoaffective disorder in the past and PTSD. Poison control was called on arrival to the emergency room in the report that she has not taken a harmful amount of medications to monitor her during her stay in the emergency room. Allergies and Home Medications Allergies Coded Allergies: aripiprazole (Unverified Allergy, Mild, 07/17/15) Uncoded Allergies: VYVANCE (Allergy, Mild, 07/17/15) Home Medications Ondansetron 8 Mg Tab.rapdis, 8 MG PO Q6H PRN for NAUSEA/VOMITING-1ST LINE Prescribed by: KATH NIETO on 06/26/172130 Sulfamethoxazole/Trimethoprim 1 Each Tablet, 1 EACH PO BID Prescribed by: KATH NIETO on 06/26/172130 Past Iqpfwyt-Fxemtx-Ehgvar Hx Patient Social History Alcohol Use: Rarely Uses Recreational Drug Use: Yes Drug of Choice: PAST HX OF POT. Smoking Status: Current Everyday Smoker Type Used: Cigarettes 2nd Hand Smoke Exposure: Yes Recent Foreign Travel: No Contact w/Someone Who Travel: No Recent Infectious Disease Expo: No Recent Hopitalizations: No Immunizations Up To Date Tetanus Booster (TDap): Unknown Date of Influenza Vaccine: Dec 07, 2013 Seasonal Allergies Seasonal Allergies: No Past Medical History Surgeries: Yes (LEFT KNEE) Orthopedic Respiratory: No Currently Using CPAP: No Currently Using BIPAP: No Cardiac: No Neurological: No Last Menstrual Period: Apr 04, 2018 Reproductive Disorders: No Genitourinary: No Gastrointestinal: No Musculoskeletal: No Endocrine: No HEENT: No Cancer: No Psychosocial: Yes ADD/ADHD, Anxiety, PTSD, Bipolar, Schizophrenia, Depression Integumentary: Yes (MRSA by hx) Blood Disorders: Yes (ANEMIA, VIT D DEFICIENCY) Family Medical History No Pertinent Family Hx Physical Exam Vital Signs - First Documented 04/11/18 16:35 Temp 98.5 Pulse 98 Resp 12 B/P (MAP) 98/70 (79) Pulse Ox 100 O2 Delivery Room Air Capillary Refill : Less Than 3 Seconds Height, Weight, BMI Height: 5'2.00" Weight: 120lbs. 0oz. [id number]; 22.86 BMI Method:Stated Progress/Results/Core Measures Results/Orders Lab Results Laboratory Tests Test 04/11/18 18:04 04/11/18 18:15 Range/Units Urine Color YELLOW Urine Clarity CLEAR Urine pH 6 5-9 Urine Specific [place] 1.020 1.016-1.022 Urine Protein 1+ H NEGATIVE Urine Glucose (UA) NEGATIVE NEGATIVE Urine Ketones NEGATIVE NEGATIVE Urine Nitrite NEGATIVE NEGATIVE Urine Bilirubin NEGATIVE NEGATIVE Urine Urobilinogen 1 NORMAL MG/DL Urine Leukocyte Esterase 3+ H NEGATIVE Urine RBC (Auto) NEGATIVE NEGATIVE Urine RBC NONE /HPF Urine WBC 10-25 H /HPF Urine Squamous Epithelial Cells 10-25 H /HPF Urine Crystals NONE /LPF Urine Bacteria MODERATE H /HPF Urine Casts NONE /LPF Urine Mucus LARGE H /LPF Urine Culture Indicated YES Urine Test NEGATIVE NEGATIVE Urine Opiates Screen NEGATIVE NEGATIVE Urine Oxycodone Screen NEGATIVE NEGATIVE Urine Methadone Screen NEGATIVE NEGATIVE Urine Propoxyphene Screen NEGATIVE NEGATIVE Urine Barbiturates Screen NEGATIVE NEGATIVE Ur Tricyclic Antidepressants Screen NEGATIVE NEGATIVE Urine Phencyclidine Screen NEGATIVE NEGATIVE Urine Amphetamines Screen NEGATIVE NEGATIVE Urine Methamphetamines Screen NEGATIVE NEGATIVE Urine Benzodiazepines Screen NEGATIVE NEGATIVE Urine Cocaine Screen NEGATIVE NEGATIVE Urine Cannabinoids Screen POSITIVE H NEGATIVE White Blood Count 7.9 4.3-11.0 10^3/uL Red Blood Count 4.49 4.35-5.85 10^6/uL Hemoglobin 13.2 11.5-16.0 G/DL Hematocrit 40 35-52 % Mean Corpuscular Volume 88 80-99 FL Mean Corpuscular Hemoglobin 29 25-34 PG Mean Corpuscular Hemoglobin Concent 33 32-36 G/DL Red Cell Distribution Width 13.9 10.0-14.5 % Platelet Count 282 130-400 10^3/uL Mean Platelet Volume 9.5 7.4-10.4 FL Neutrophils (%) (Auto) 58 42-75 % Lymphocytes (%) (Auto) 31 12-44 % Monocytes (%) (Auto) 8 0-12 % Eosinophils (%) (Auto) 3 0-10 % Basophils (%) (Auto) 0 0-10 % Neutrophils # (Auto) 4.6 1.8-7.8 X 10^3 Lymphocytes # (Auto) 2.4 1.0-4.0 X 10^3 Monocytes # (Auto) 0.6 0.0-1.0 X 10^3 Eosinophils # (Auto) 0.2 0.0-0.3 10^3/uL Basophils # (Auto) 0.0 0.0-0.1 10^3/uL Sodium Level 138 135-145 MMOL/L Potassium Level 3.6 3.6-5.0 MMOL/L Chloride Level 105 98-107 MMOL/L Carbon Dioxide Level 23 21-32 MMOL/L Anion Gap 10 5-14 MMOL/L Blood Urea Nitrogen 9 7-18 MG/DL Creatinine 0.70 0.60-1.30 MG/DL Estimat Glomerular Filtration Rate > 60 BUN/Creatinine Ratio 13 Glucose Level 86 70-105 MG/DL Calcium Level 9.4 8.5-10.1 MG/DL Corrected Calcium 8.5-10.1 MG/DL Total Bilirubin 0.5 0.1-1.0 MG/DL Aspartate Amino Transf (AST/SGOT) 18 5-34 U/L Alanine Aminotransferase (ALT/SGPT) 11 0-55 U/L Alkaline Phosphatase 73 40-136 U/L Total Protein 7.6 6.4-8.2 GM/DL Albumin 4.6 H 3.2-4.5 GM/DL TSH [place] Testing 1.19 0.35-4.94 UIU/ML Salicylates Level < 5.0 L 5.0-20.0 MG/DL Acetaminophen Level < 10 L 10-30 UG/ML Serum Alcohol < 10 <10 MG/DL My Orders Orders - TUAN MAHAJAN Ua Culture If Indicated (04/11/18 17:58) Cbc With Automated Diff (04/11/18 17:58) Comprehensive Metabolic Panel (04/11/18 17:58) Alcohol (04/11/18 17:58) Drug Screen Stat (Urine) (04/11/18 17:58) Acetaminophen (04/11/18 17:58) Salicylate (04/11/18 17:58) Ekg Tracing (04/11/18 17:58) Hcg,Qualitative Urine (04/11/18 17:58) Saline Lock/Iv-Start (04/11/18 17:58) Thyroid Analyzer (04/11/18 17:58) Monitor-Rhythm Ecg Trace Only (04/11/18 17:58) Saline Lock/Iv-Start (04/11/18 17:58) Urine Culture (04/11/18 18:04) Vital Signs/I&O 04/11/18 16:35 Temp 98.5 Pulse 98 Resp 12 B/P (MAP) 98/70 (79) Pulse Ox 100 O2 Delivery Room Air Blood Pressure Mean: 79 Progress Progress Note : Time: 18:00 Progress Note 232-save was called at this time. 1844: Vicky [facility] screener is here to evaluate the patient this time. 1910: Vicky from [facility] has came out and screen the patient and does not feel that she is a harm to herself. They have set up a safety plan where they will check on the patient periodically throughout the weekend. The patient's mother informed myself and Vicky that the patient's medications are locked up at this time and they will be administering them. Close follow-up with therapist has been instructed. Return precautions were given. Departure Impression Primary Impression: Drug overdose Qualified Codes: T50.901A - Poisoning by unspecified drugs, medicaments and biological substances, accidental (unintentional), initial encounter Additional Impression: Marijuana use Disposition: 01 HOME, SELF-CARE Condition: Stable/Unchanged Departure-Patient Inst. Decision time for Depature: 19:13 Referrals: [facility] (PCP/Family) Primary Care Physician Patient Instructions: Marijuana Use and Addiction Add. Discharge Instructions: Take medications as prescribed. It is important that she takes the appropriate dose and only the appropriate dose of her medications. Keep her pills locked up and dose appropriately as discussed with the 232- SAVE worker. Return back to the emergency room for any worsening symptoms, thoughts of self-harm, suicide, homicide, or any other concerns as needed. All discharge instructions reviewed with patient and/or family. Voiced understanding. TUAN MAHAJAN Apr 11, 2018 19:12
[2018-04-11 19:30] VITALS: BP 120/80
== END 2018-04-11 19:30 | disposition home or self-care (01) ==
LOC: EDUNIT# 16:13 → ER 16:14
DX: T50.991A Poisoning by other drugs, medicaments and biological substances, accidental (unintentional), initial encounter (principal); F12.90 Cannabis use, unspecified, uncomplicated; F25.9 Schizoaffective disorder, unspecified; F43.10 Post-traumatic stress disorder, unspecified; F90.9 Attention-deficit hyperactivity disorder, unspecified type; F41.9 Anxiety disorder, unspecified; F31.9 Bipolar disorder, unspecified; F98.8 Other specified behavioral and emotional disorders with onset usually occurring in childhood and adolescence; D64.9 Anemia, unspecified; F17.210 Nicotine dependence, cigarettes, uncomplicated; Z88.8 Allergy status to other drugs, medicaments and biological substances; Z98.890 Other specified postprocedural states; Z86.14 Personal history of Methicillin resistant Staphylococcus aureus infection
CPT/HCPCS: 36415; 80053; 80306; 80320; 80329; 81000; 84443; 84703; 85025; 87088; 93005; 93041

== ENCOUNTER 2018-07-11 02:00 | Emergency (ER) | payer SELFPAY ==
[~2018-07-11] VITALS: Ht 157.5 cm; Wt 54.4 kg
[2018-07-11 02:24] LABS: BILIRUBIN,URINE NEGATIVE (NEGATIVE); CLARITY,URINE SLIGHTLY CLOUDY; COLOR,URINE YELLOW; GLUCOSE, URINE (UA) NEGATIVE (NEGATIVE); KETONES,URINE 1+ (NEGATIVE); LEUKOCYTE ESTERASE ,URINE 3+ (NEGATIVE); NITRITE,URINE POSITIVE (NEGATIVE); PH,URINE 6 (5-9); PROTEIN,URINE 4+ (NEGATIVE); UROBILINOGEN,URINE 1 MG/DL (NORMAL)
[2018-07-11 02:51] LABS: RBC,URINE 25-50 /HPF; WBC,URINE TNTC /HPF
[2018-07-11 02:52] LABS: BACTERIA,URINE LARGE /HPF
[2018-07-11] MEDS ORDERED: CEPHALEXIN 250 MG (KEFLEX) CAP PO STA (03:40)
[2018-07-11] MEDS ORDERED: CEPH500T PO (03:43)
--- NOTE | 2018-07-11 03:43 | ED GU-Female ---
General Chief Complaint: - Urinary Stated Complaint: HURTS TO URINATE,BUTTERFLIES IN STOMACH Nursing Triage Note: burning with urination x1 week Nursing Sepsis Screen: No Definite Risk Source: patient Exam Limitations: no limitations History of Present Illness Date Seen by Provider: July 11, 2018 Time Seen by Provider: 03:31 Initial Comments Here with report of burning with urination and butterfly feeling in her stomach. She is concerned that she has a urinary tract infection. She is increased water intake but still has that disturbance. Has not taken anything for the pain. Timing/Duration: week, getting worse Severity/Quality: burning Location: suprapubic, urethral Radiation: none Activities at Onset: none Modifying Factors: Worsens With Urinating Associated Symptoms: dysuria; No fever/chills, No nausea/vomiting; urinary frequency Allergies and Home Medications Allergies Coded Allergies: aripiprazole (Unverified Allergy, Mild, 07/17/15) Uncoded Allergies: VYVANCE (Allergy, Mild, 07/17/15) Home Medications Cephalexin 500 Mg Tablet, 500 MG PO BID Prescribed by: JESSICA BRANHAM on 07/11/18 0343 Patient Home Medication List Home Medication List Reviewed: Yes Review of Systems Review of Systems Constitutional: see HPI; No chills, No fever Respiratory: no symptoms reported Cardiovascular: no symptoms reported Gastrointestinal: see HPI; No diarrhea, No vomiting Genitourinary: burning, frequency, pain, urgency : No Musculoskeletal: no symptoms reported Past Lsravek-Jdyoor-Dhxukx Hx Past Med/Social Hx: Reviewed Nursing Past Med/Soc Hx Patient Social History Alcohol Use: Occasionally Uses Recreational Drug Use: No Drug of Choice: PAST HX OF POT. Smoking Status: Current Everyday Smoker Type Used: Cigarettes 2nd Hand Smoke Exposure: Yes Recent Foreign Travel: No Contact w/Someone Who Travel: No Recent Infectious Disease Expo: No Recent Hopitalizations: No Immunizations Up To Date Tetanus Booster (TDap): Unknown Date of Influenza Vaccine: Dec 07, 2013 Seasonal Allergies Seasonal Allergies: No Past Medical History Surgeries: Yes (LEFT KNEE) Orthopedic Respiratory: No Currently Using CPAP: No Currently Using BIPAP: No Cardiac: No Neurological: No : No Reproductive Disorders: No Genitourinary: No Gastrointestinal: No Musculoskeletal: No Endocrine: No HEENT: No Cancer: No Psychosocial: Yes ADD/ADHD, Anxiety, PTSD, Bipolar, Schizophrenia, Depression Integumentary: Yes (MRSA by hx) Blood Disorders: Yes (ANEMIA, VIT D DEFICIENCY) Family Medical History Reviewed Nursing Family Hx No Pertinent Family Hx Physical Exam Vital Signs Vital Signs - First Documented 07/11/18 02:07 Temp 97.8 Pulse 75 Resp 16 B/P (MAP) 97/73 (81) Pulse Ox 98 O2 Delivery Room Air Capillary Refill : Less Than 3 Seconds Height, Weight, BMI Height: 5'2.00" Weight: 120lbs. 0oz. [id number]; 22.86 BMI Method:Stated General Appearance: WD/WN, no apparent distress Neck: full range of motion, supple Cardiovascular: regular rate, rhythm, no murmur Respiratory: lungs clear, normal breath sounds Gastrointestinal: soft; No guarding, No rebound; tenderness (mild suprapubic) Back: normal inspection, no CVA tenderness, no vertebral tenderness Neurologic/Psychiatric: alert, oriented x 3 Skin: normal color, warm/dry Progress/Results/Core Measures Suspected Sepsis Recent Fever Within 48 Hours: No Infection Criteria Present: None New/Unexplained Altered Menta: No Sepsis Screen: No Definite Risk SIRS Temperature:97.8 Pulse: 75 Respiratory Rate: 16 Blood Pressure 97 /73 Mean: 81 Results/Orders Lab Results Laboratory Tests Test 07/11/18 02:11 Range/Units Urine Color YELLOW Urine Clarity SLIGHTLY CLOUDY Urine pH 6 5-9 Urine Specific [place] 1.020 1.016-1.022 Urine Protein 4+ NEGATIVE Urine Glucose (UA) NEGATIVE NEGATIVE Urine Ketones 1+ H NEGATIVE Urine Nitrite POSITIVE H NEGATIVE Urine Bilirubin NEGATIVE NEGATIVE Urine Urobilinogen 1 NORMAL MG/DL Urine Leukocyte Esterase 3+ H NEGATIVE Urine RBC (Auto) 5+ H NEGATIVE Urine RBC 25-50 H /HPF Urine WBC TNTC H /HPF Urine Squamous Epithelial Cells 10-25 H /HPF Urine Crystals NONE /LPF Urine Bacteria LARGE H /HPF Urine Casts NONE /LPF Urine Mucus NEGATIVE /LPF Urine Culture Indicated YES My Orders Orders - JESSICA BRANHAM MD Ua Culture If Indicated (07/11/18 02:19) Urine Bedside (07/11/18 02:19) Urine Culture (07/11/18 02:11) Cephalexin Capsule (Keflex Capsule) (07/11/18 03:40) Vital Signs/I&O 07/11/18 07/11/18 02:07 03:48 Temp 97.8 97.6 Pulse 75 73 Resp 16 14 B/P (MAP) 97/73 (81) 107/75 (86) Pulse Ox 98 97 O2 Delivery Room Air Room Air Capillary Refill : Less Than 3 Seconds Blood Pressure Mean: 81 Progress Note : Progress Note Seen and evaluated. UA ordered. This was positive. UCG negative. Keflex 500 mg by mouth. Discharged home with return precautions. Patient verbalize understanding instructions and agreement with plan. Departure Impression Primary Impression: Urinary tract infection Qualified Codes: N30.00 - Acute cystitis without hematuria Disposition: HOME, SELF-CARE Condition: Stable Departure-Patient Inst. Decision time for Depature: 03:41 Referrals: [facility] (PCP/Family) Primary Care Physician Patient Instructions: Urinary Tract Infection, Adult (DC) Add. Discharge Instructions: All discharge instructions reviewed with patient and/or family. Voiced understanding. Take medications as directed. You may take ibuprofen 600 mg every 8 hours as needed for pain. You may also take Tylenol/acetaminophen 1000 mg every 8 hours as needed for pain. Drink plenty of fluids. Return for worsening, fever, vomiting, weakness, breathing problems or other concerns as needed. Scripts Cephalexin (Cephalexin) 500 Mg Tablet 500 MG PO BID, #10 TAB 0 Refills Prov: JESSICA BRANHAM MD 07/11/18 JESSICA BRANHAM MD July 11, 2018 03:43
[2018-07-11 03:48] VITALS: BP 107/75
== END 2018-07-11 03:49 | disposition home or self-care (01) ==
LOC: EDUNIT# 02:00 → ER 02:04
DX: N39.0 Urinary tract infection, site not specified (principal); F90.9 Attention-deficit hyperactivity disorder, unspecified type; D64.9 Anemia, unspecified; F98.8 Other specified behavioral and emotional disorders with onset usually occurring in childhood and adolescence; F41.9 Anxiety disorder, unspecified; F43.10 Post-traumatic stress disorder, unspecified; F31.9 Bipolar disorder, unspecified; F20.9 Schizophrenia, unspecified; F17.210 Nicotine dependence, cigarettes, uncomplicated; Z87.440 Personal history of urinary (tract) infections; Z88.8 Allergy status to other drugs, medicaments and biological substances; Z86.14 Personal history of Methicillin resistant Staphylococcus aureus infection
CPT/HCPCS: 81000; 84703; 87077; 87088; 87186; 99283

== ENCOUNTER 2019-03-02 00:30 | Outpatient (CLI) | payer MEDICAID, OTHER ==
[~2019-03-02] VITALS: Ht 160 cm; Wt 60.7 kg
[~2019-03-02 00:30] MED LIST changes: +CEPH500T PO; -TRAZ-189; +TRAZ-222
--- NOTE | 2019-03-02 00:43 | NUR ---
MELISSA GOODE presented to unit via wheelchair from ED, accompanied by family, with c/o SEVERE ABD PAIN. MELISSA GOODE weighed, gowned, voided, and to bed. EFHM and TOCO applied, VS taken. MELISSA GOODE oriented to bed controls, call light, TV, heat, and A/C controls.
--- NOTE | 2019-03-02 00:46 | NUR ---
FHR dopplered at this time. FHR 154.
[2019-03-02] MEDS ORDERED: PREN-142 PO (00:53)
[2019-03-02 00:56] VITALS: BP 105/68
[2019-03-02 00:57] LABS: BILIRUBIN,URINE NEGATIVE (NEGATIVE); CLARITY,URINE CLEAR; COLOR,URINE YELLOW; GLUCOSE, URINE (UA) NEGATIVE (NEGATIVE); KETONES,URINE NEGATIVE (NEGATIVE); LEUKOCYTE ESTERASE ,URINE NEGATIVE (NEGATIVE); NITRITE,URINE NEGATIVE (NEGATIVE); PH,URINE 6.5 (5-9); PROTEIN,URINE NEGATIVE (NEGATIVE)
[2019-03-02 01:04] LABS: BACTERIA,URINE TRACE /HPF; SQUAMOUS EPITHELIAL CELL,UR 25-50 /HPF; WBC,URINE RARE /HPF
--- NOTE | 2019-03-02 01:10 | NUR ---
This RN called Dr Liu to notify of patient arrival and complaint of lower abdominal pain, notified of no contractions, fhr, vs and UA results. New orders for discharge received.
--- NOTE | 2019-03-02 01:25 | NUR ---
Dishcarge instructions and handouts reviewed and given to patient. Patient verbalized understanding. Patient and mother leaving unit to private vehicle.
--- NOTE | 2019-03-03 08:24 | Physician Query-Final Dx ---
JUAN OMER 03/03/19 0824: Clinic Account Progress/Dx Physician Query: Please give diagnosis Please give # weeks gestation Date of Service Mar 02, 2019 at 00:30 GUICHO MCNEILL MD 03/05/19 1244: Clinic Account Progress/Dx DIAGNOSIS: Diagnosis 21 weeks gestation Abdominal pain in JUAN OMER Mar 03, 2019 08:24 GUICHO MCNEILL MD Mar 05, 2019 12:44
== END 2019-03-02 01:25 | disposition home or self-care (01) ==
LOC: WSo 00:30 → LDRP 00:31 → WSo 01:25
PROVIDERS: ATTEND Family Medicine
DX: O99.89 Other specified diseases and conditions complicating pregnancy, childbirth and the puerperium (principal); Z3A.21 21 weeks gestation of pregnancy; R10.9 Unspecified abdominal pain
CPT/HCPCS: 81000; 99212

== ENCOUNTER 2019-04-23 23:10 | Outpatient (CLI) | payer MEDICAID ==
[~2019-04-23] VITALS: Ht 157.5 cm; Wt 64.7 kg
[~2019-04-23 23:10] MED LIST changes: -LAMO100T; +LAMO100T5; +PREN-142 PO; -TRAZ-222; +TRZ50T
--- NOTE | 2019-04-23 23:18 | NUR ---
JOVANNYFRANCESLESMARLA Unique 30/ presented to unit via from ED, accompanied by mother, with c/o contantSTOMACH PAIN. MELISSA GOODE Unique weighed, gowned, voided, and to bed. EFHM and TOCO applied, VS taken. MELISSA GOODE Unique oriented to bed controls, call light, TV, heat, and A/C controls. Pt. denied bleeding or LOF and confirms movement.
[2019-04-23 23:39] LABS: BILIRUBIN,URINE NEGATIVE (NEGATIVE); CLARITY,URINE CLEAR; COLOR,URINE YELLOW; GLUCOSE, URINE (UA) NEGATIVE (NEGATIVE); KETONES,URINE NEGATIVE (NEGATIVE); LEUKOCYTE ESTERASE ,URINE NEGATIVE (NEGATIVE); NITRITE,URINE NEGATIVE (NEGATIVE); PROTEIN,URINE NEGATIVE (NEGATIVE)
[2019-04-23 23:46] VITALS: BP 90/51
[2019-04-23 23:47] LABS: BACTERIA,URINE TRACE /HPF; SQUAMOUS EPITHELIAL CELL,UR 25-50 /HPF
[2019-04-23] MEDS ORDERED: ACETAMINOPHEN 500 MG TAB (TYLENOL) ONE (23:58)
[2019-04-24] MEDS ORDERED: ACETAMINOPHEN 500 MG TAB (TYLENOL) PO ONE (00:15)
--- NOTE | 2019-04-24 00:35 | NUR ---
Pt states Tylenol "helped a little," and requested to go home at time. Discharge instructions discussed with pt and mother. Pt denies any questions or concerns. Signature sheet signed. Wheelchair given per request for mother to take patient off unit. Pt to private vehicle at time via wheelchair with mother at side. No signs of distress noted.
--- NOTE | 2019-04-24 08:18 | Physician Query-Final Dx ---
Clinic Account Progress/Dx Physician Query: Please give diagnosis Please include # weeks gestation Date of Service Apr 23, 2019 at 23:10 JUAN OMER Apr 24, 2019 08:18
== END 2019-04-24 00:35 | disposition home or self-care (01) ==
LOC: WSo 23:10 → LDRP 23:11 → WSo 04-24 00:35
PROVIDERS: ATTEND Family Medicine
DX: O62.9 Abnormality of forces of labor, unspecified (principal); Z3A.00 Weeks of gestation of pregnancy not specified
CPT/HCPCS: 81000; 99213

== ENCOUNTER 2019-06-09 23:29 | Outpatient (CLI) | payer MEDICAID ==
[~2019-06-09] VITALS: Ht 157.5 cm; Wt 69.4 kg
--- NOTE | 2019-06-09 23:38 | NUR ---
MELISSA GOODE presented to unit via wheelchair from ED, accompanied by family, with c/o CONTRACTIONS, FELL IN SHOWER. MELISSA GOODE weighed, gowned, voided, and to bed. EFHM and TOCO applied, VS taken. MELISSA GOODE oriented to bed controls, call light, TV, heat, and A/C controls.
[2019-06-09 23:50] VITALS: BP 103/64
[2019-06-10] MEDS ORDERED: BUSP10TA95 PO (00:08)
[2019-06-10 00:11] LABS: BILIRUBIN,URINE NEGATIVE (NEGATIVE); CLARITY,URINE CLEAR; COLOR,URINE YELLOW; GLUCOSE, URINE (UA) NEGATIVE (NEGATIVE); KETONES,URINE NEGATIVE (NEGATIVE); LEUKOCYTE ESTERASE ,URINE NEGATIVE (NEGATIVE); NITRITE,URINE NEGATIVE (NEGATIVE); PH,URINE 6.5 (5-9); PROTEIN,URINE NEGATIVE (NEGATIVE)
[2019-06-10 00:15] VITALS: BP 103/64
[2019-06-10 00:18] LABS: BACTERIA,URINE TRACE /HPF
[2019-06-10 03:30] VITALS: BP 110/69
--- NOTE | 2019-06-10 04:03 | NUR ---
Written discharge instructions reviewed with patient. Discharge instructions signed and copy given. Patient discharged home with labor precautions, accompanied by mother. Condition stable. No signs or symptoms of distress.
--- NOTE | 2019-06-10 08:35 | Physician Query-Final Dx ---
JUAN OMER 06/10/19 0835: Clinic Account Progress/Dx Physician Query: Please give diagnosis Please include # weeks gestation Date of Service Jun 09, 2019 at 23:29 MARK QUINTANA DO 06/10/19 0920: Clinic Account Progress/Dx DIAGNOSIS: Diagnosis 35 week GA fall; reassuring monitoring for 4 hours JUAN OMER Jun 10, 2019 08:35 MARK QUINTANA DO Jun 10, 2019 09:20
== END 2019-06-10 04:03 | disposition home or self-care (01) ==
LOC: WSo 23:29 → LDRP 23:35 → WSo 06-10 04:03
PROVIDERS: ATTEND Family Medicine
DX: Z04.3 Encounter for examination and observation following other accident (principal); Z3A.35 35 weeks gestation of pregnancy
CPT/HCPCS: 81000; 99213

== ENCOUNTER 2019-07-15 19:00 | Inpatient (IN) | payer MEDICAID ==
[~2019-07-15] VITALS: Ht 157.5 cm; Wt 77.2 kg
[~2019-07-15 19:00] MED LIST changes: +BUSP10TA95 PO
--- NOTE | 2019-07-15 19:15 | NUR ---
MELISSA GOODE presented to unit via ambulatory from ED, accompanied by so, for scheduled INDUCTION. MELISSA GOODE weighed, gowned, voided, and to bed. EFHM and TOCO applied, VS taken. MELISSA GOODE oriented to bed controls, call light, TV, heat, and A/C controls.
[2019-07-15] MEDS ORDERED: LACTATED RINGERS 1,000 ML IV SCH (19:27)
[2019-07-15] MEDS ORDERED: MISOPROSTOL 100 MCG (CYTOTEC) TAB PV PRN (19:30)
--- OUTSIDE RECORDS SUMMARY | 2019-07-15 19:41 | XMS REPORT ---
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 Name Role Phone Migration, Doctor Unavailable Unavailable PROBLEMS Type Condition ICD9-CM Code YXI77-AN Code Onset Dates Condition S tatus SNOMED Code Problem Low hemoglobin D64.9 Active 18034 7008 Problem Long-term use of high-risk medication Z79.899 Active 210097311 Problem Pain in left knee M25.562 Active 30 247104 Problem Chronic fatigue R53.82 Active 5270 2003 Problem Seasonal allergic rhinitis due to pollen J30.1 Active 20792160 Problem Bipolar disorder with depression F31.30 Active 38929710 Problem Routine gynecological examination Z01.419 Active 107388460 Problem High risk medication use Z79.899 Activ e 178150968 Problem Unspecified mood [affective] disorder F39 Active 254842200 Problem Iron deficiency anemia due to chronic blood loss D 50.0 Active 59054259 Problem Attention deficit hyperactivity disorder (ADHD), combi cosmo type F90.2 Active 499217472 Problem Bipolar disorder, unspecified F31.9 Active 31713477 Problem Generalized anxiety disorder F41.1 A ctive 89512998 Problem Amenorrhea N91.2 Active 36484808 Problem Schizoaffective disorder F25.9 Activ e 24691058 Problem Well woman exam Z01.419 Active 3103 05322 Problem Schizoaffective disorder, bipolar type F25.0 Active 20509545 Problem care, first in first trimester Z34.01 Active 164208758 Problem Vitamin D deficiency E55.9 Active 24354312 Problem Anxiety F41.9 Active 66842580 Problem Pain in right knee M25.561 Active 8 9543019 Problem General counseling and advice on female contraception Z30.09 Active 35247483 Problem Social phobia F40.10 Active 240637 02 Problem Relationship problem with family member Z63.8 Active 332373523 Problem Chronic post-traumatic stress disorder (PTSD) F43. 12 Active 727821075 Problem Positive test Z32.01 Active 399208296 ALLERGIES No Information ENCOUNTERS Encounter Location Date Diagnosis [facility] [address] [id number] [address] [place] [id number] July, [facility] [address] [id number] [address] [place] [phone] July, [facility] [address] [facility] [id number] [address] [place] [phone] July, [facility] [address] [facility] [id number] [address] [place] [id number] July, care in third trime ster Z34.93 and 39 weeks gestation of Z3A.39 [facility] [facility] [address] [id number] [address] [place] [phone] Jun, [facility] [address] [facility] [id number] [address] [place] [address] Jun, Third trimester Z3 4.93 and Decreased movements in third trimester, single or unspecified fetus O36.8130 [facility] [address] [facility] [id number] [address] [place] [phone] Jun, [facility] [address] [facility] [id number] [address] [place] [phone] Jun, care in third trime ster Z34.93 and 37 weeks gestation of Z3A.37 [place] [address] [facility] [id number] [address] [place] [id number] Jun, [facility] [address] [id number] [address] [place] [phone] Jun, Third trimester Z3 4.93 and 36 weeks gestation of Z3A.36 [place] [address] [id number] [address] [place] [phone] Jun, [facility] [address] [facility] [id number] [address] [place] [phone] Jun, Third trimester Z3 4.93 ; 35 weeks gestation of Z3A.35 and Palpitations R00.2 [facility] [address] [id number] [address] [place] [id number] Jun, [facility] [address] [facility] [id number] [address] [place] [phone] May, [facility] [address] [facility] [id number] [address] [place] [id number] May, Third trimester Z3 4.93 ; 33 weeks gestation of Z3A.33 ; Anxiety F41.9 and Encounter for immunization Z23 [facility] [address] [id number] [address] [place] [phone] 25 May, 2019 [facility] [address] [facility] [id number] [address] [place] [phone] 24 May, 2019 [facility] [address] [facility] [id number] [address] [place] [phone] May, [facility] [address] [facility] [id number] [address] [place] [phone] 17 May, 2019 [facility] [address] [id number] [address] [place] [phone] 16 May, 2019 [facility] [address] [facility] [id number] [address] [place] [id number] 16 May, 2019 [facility] [address] [facility] [id number] [address] [place] [phone] 12 May, 2019 [facility] [address] [facility] [id number] [address] [place] [phone] May, [facility] [address] [facility] [id number] [address] [place] [phone] 10 May, 2019 care, first pregnan cy in third trimester Z34.03 ; 31 weeks gestation of Z3A.31 and Decreased movements in third trimester, single or unspecified fetus O36.8130 [facility] [address] [facility] [id number] [address] [place] [phone] 06 May, 2019 Fever and chills R50.9 and F mel-like symptoms R68.89 [facility] [address] [id number] [address] [place] [id number] 11 Apr, 2019 [facility] [address] [id number] [address] [place] [phone] 11 Apr, 2019 Second trimester Z 34.92 and 27 weeks gestation of Z3A.27 [facility] [address] [id number] [address] [place] [phone] 15 Mar, 2019 Acute non-recurrent maxillar y sinusitis J01.00 and Cough R05 [place] [address] [id number] [address] [place] [phone] 15 Mar, 2019 [place] [address] [facility] [id number] [address] [place] [phone] 15 Mar, 2019 [place] [address] [facility] [id number] [address] [place] [id number] 14 Mar, 2019 [place] [address] [facility] [id number] [address] [place] [address] 14 Mar, 2019 care in second trim gabo Z34.92 and 23 weeks gestation of Z3A.23 [facility] [address] [facility] [id number] [address] [place] [address] 31 Feb, 2019 care in second trim gabo Z34.92 and 19 weeks gestation of Z3A.19 [facility] [address] [facility] [id number] [address] [place] [address] Feb, [facility] [address] [facility] [id number] [address] [place] [phone] Feb, care in second trim gabo Z34.92 ; 19 weeks gestation of Z3A.19 and Encounter for immunization Z23 [facility] [address] [id number] [address] [place] [phone] 17 Feb, 2019 Dental examination Z01.20 [facility] [address] [id number] [address] [place] [phone] Feb, [facility] [address] [id number] [address] [place] [phone] Jan, [facility] [address] [facility] [id number] [address] [place] [phone] Jan, care in second trim gabo Z34.92 and 15 weeks gestation of Z3A.15 [facility] [address] [facility] [id number] [address] [place] [address] Dec, First trimester Z3 4.91 ; 11 weeks gestation of Z3A.11 and Nausea/vomiting in O21.9 [facility] [address] [id number] [address] [place] [phone] Dec, [facility] [address] [facility] [id number] [address] [place] [phone] Dec, [facility] [address] [facility] [id number] [address] [place] [id number] Dec, care, first pregnan cy in first trimester Z34.01 [facility] [address] [facility] [id number] [address] [place] [phone] Dec, [place] [address] [facility] [id number] [address] [place] [phone] Dec, Chronic post-traumatic stres s disorder (PTSD) F43.12 ; Relationship problem with family member Z63.8 and Positive test Z32.01 [facility] [address] [id number] [address] [place] [phone] Nov, [facility] [address] [id number] [address] [place] [id number] Nov, care, first pregnan cy in first trimester Z34.01 [facility] [address] [facility] [id number] [address] [place] [id number] Nov, [facility] [address] [facility] [id number] [address] [place] [phone] Nov, care, first pregnan cy in first trimester Z34.01 and 7 weeks gestation of Z3A.01 [facility] [address] [id number] [address] [place] [phone] 24 Nov, 2018 [facility] [address] [id number] [address] [place] [phone] Nov, [facility] [address] [id number] [address] [place] [phone] 18 Nov, 2018 [place] [address] [id number] [address] [place] [phone] Nov, [place] [address] [id number] [address] [place] [address] Nov, [place] [address] [id number] [address] [place] [address] Nov, Positive test Z32. 01 ; Well woman exam with routine gynecological exam Z01.419 ; Amenorrhea N91.2 ; , unspecified gestational age Z34.90 ; Encounter for smoking cessation counseling Z71.6 ; Acute vaginitis N76.0 and Other specified bacterial agents as the cause of diseases classified elsewhere B96.89 [place] [address] [id number] [address] [place] [phone] Nov, [place] [address] [id number] [address] [place] [phone] Nov, [place] [address] [id number] [address] [place] [id number] Oct, Bipolar disorder with depres arlen F31.30 [place] [address] [id number] [address] [place] [phone] Oct, Bipolar disorder with depres arlen F31.30 ; Chronic post-traumatic stress disorder (PTSD) F43.12 and Relationship problem with family member Z63.8 [place] [address] [id number] [address] [place] [phone] Aug, Bipolar disorder with depres arlen F31.30 ; Chronic post-traumatic stress disorder (PTSD) F43.12 and Relationship problem with family member Z63.8 [facility] [address] [id number] [address] [place] [phone] Mar, Schizoaffective disorder, bi polar type F25.0 ; Social phobia F40.10 ; Chronic post-traumatic stress disorder (PTSD) F43.12 and Relationship problem with family member Z63.8 [facility] [id number] [place] [phone] Oct, Pain in right shoulder M25.511 and Bipol ar disorder with depression F31.30 [facility] [address] [id number] [address] [place] [phone] July, [facility] [address] [id number] [address] [place] [id number] July, [facility] [address] [id number] [address] [place] [address] July, Well woman exam Z01.419 and Vaginal discharge N89.8 [facility] [address] [id number] [address] [place] [phone] Jun, [facility] [address] [id number] [address] [place] [id number] Mar, [facility] [address] [id number] [address] [place] [phone] May, Bipolar disorder, unspecifie d F31.9 [facility] [address] [id number] [address] [place] [phone] May, Bipolar disorder, unspecifie d F31.9 ; Attention deficit hyperactivity disorder (ADHD), combined type F90.2 and Schizoaffective disorder F25.9 [facility] [address] [id number] [address] [place] [phone] May, Bipolar disorder with depres arlen F31.30 [facility] [address] [id number] [address] [place] [id number] May, Bipolar disorder, unspecifie d F31.9 ; Attention deficit hyperactivity disorder (ADHD), combined type F90.2 and Schizoaffective disorder F25.9 [place] [address] [place] [id number] [address] [place] [phone] 16 Apr, 2016 Seasonal allergic rhinitis d ue to pollen J30.1 [place] [address] [place] [id number] [address] [place] [phone] Apr, [place] [address] [place] [id number] [place] [phone] Mar, Attention deficit disorder ( ADD) without 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 ; Bipolar disorder with depression F31.30 and Generalized anxiety disorder F41.1 [place] [address] [place] [id number] [address] [place] [id number] Mar, [place] [address] [id number] Feb, Unspecified mood [affective] disorder F39 [place] [address] [place] [id number] [address] [place] [id number] Feb, Unspecified mood [affective] disorder F39 [place] [address] [place] [id number] [address] [place] [phone] Feb, [place] [address] [place] [id number] [place] [address] Jan, Amenorrhea N91.2 ; Vitamin D deficiency E55.9 and Iron deficiency anemia due to chronic blood loss D50.0 [place] [address] [place] [id number] [address] [place] [phone] Jan, Encounter for test Z32.00 [place] [address] [place] [id number] [address] [place] [phone] Dec, Unspecified mood [affective] disorder F39 ; Bipolar disorder, unspecified F31.9 and Attention deficit hyperactivity disorder (ADHD), combined type F90.2 [facility] [address] [id number] [address] [place] [phone] Nov, [facility] [address] [id number] [address] [place] [phone] Nov, [facility] [address] [id number] [address] [place] [phone] Nov, [facility] [address] [id number] [address] [place] [phone] Nov, [facility] [address] [id number] [address] [place] [phone] Nov, [facility] [address] [id number] [address] [place] [address] Nov, Dysuria R30.0 [facility] [address] [id number] [address] [place] [phone] Oct, [facility] [address] [id number] [address] [place] [phone] Oct, [facility] [address] [id number] [address] [place] [phone] Sep, [facility] [address] [facility] [id number] [address] [place] [address] Sep, Bipolar disorder, unspecifie d F31.9 and Schizoaffective disorder F25.9 [facility] [address] [facility] [id number] [address] [place] [address] Sep, [facility] [address] [facility] [id number] [address] [place] [phone] Aug, Unspecified mood [affective] disorder F39 [facility] [address] [facility] [id number] [address] [place] [phone] Aug, [facility] [address] [facility] [id number] [address] [place] [phone] Aug, General counseling and advic e on female contraception Z30.09 and Iron deficiency anemia due to chronic blood loss D50.0 [place] [address] [facility] [id number] [address] [place] [phone] 26 July, 2016 Routine gynecological examin ation Z01.419 ; General counseling and advice on female contraception Z30.09 ; High risk medication use Z79.899 ; Other specified bacterial agents as the cause of diseases classified elsewhere B96.89 and Acute vaginitis N76.0 [place] [address] [facility] [id number] [address] [place] [address] 25 Jul, 2015 Attention deficit hyperactiv ity disorder (ADHD), combined type F90.2 ; Bipolar disorder, unspecified F31.9 and Schizoaffective disorder F25.9 [place] [address] [facility] [id number] [address] [place] [phone] July, Unspecified mood [affective] disorder F39 [place] [address] [place] [id number] [address] [place] [id number] 16 Jul, 2015 [place] [address] [facility] [id number] [address] [place] [address] 16 Jul, 2015 [place] [address] [facility] [id number] [address] [place] [phone] 13 Jul, 2015 Low hemoglobin D64.9 [place] [address] [facility] [id number] [address] [place] [address] 12 Jul, 2015 [place] [address] [facility] [id number] [address] [place] [id number] 05 Jul, 2015 General counselling and advi ce on contraception Z30.09 ; Pain in left knee M25.562 ; Pain in right knee M25.561 ; Chronic fatigue R53.82 and Vitamin D deficiency E55.9 [place] [address] [facility] [id number] [address] [place] [address] Jun, Fatigue R53.83 [place] [address] [facility] [id number] [address] [place] [phone] Jun, Fatigue R53.83 ; Low hemoglo bin D64.9 ; Long-term use of high-risk medication Z79.899 ; Sore throat J02.9 and Fever, low grade R50.9 [facility] [address] [facility] [id number] [address] [place] [id number] Jun, Unspecified mood [affective] disorder F39 [facility] [address] [facility] [id number] [address] [place] [phone] May, Unspecified mood [affective] disorder F39 [facility] [address] [facility] [id number] [address] [place] [phone] May, [facility] [address] [facility] [id number] [address] [place] [phone] May, Attention deficit hyperactiv ity disorder (ADHD), combined type F90.2 ; Bipolar disorder, unspecified F31.9 and Schizoaffective disorder F25.9 [facility] [address] [facility] [id number] [address] [place] [phone] May, [facility] [address] [facility] [id number] [address] [place] [id number] Apr, [facility] [address] [facility] [id number] [address] [place] [id number] Apr, [facility] [address] [facility] [id number] [address] [place] [phone] Apr, [facility] [address] [facility] [id number] [address] [place] [phone] Apr, [facility] [address] [id number] [place] [id number] Apr, Ingestion of unknown drug T5 0.901A [facility] [address] [facility] [id number] [address] [place] [phone] Apr, [facility] [address] [facility] [id number] [address] [place] [address] Apr, Unspecified mood [affective] disorder F39 [facility] [address] [id number] [address] [place] [phone] Apr, Unspecified mood [affective] disorder F39 [facility] [address] [id number] [address] [place] [phone] Apr, Unspecified mood [affective] disorder F39 [facility] [address] [id number] [address] [place] [address] Apr, 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 ; Attention deficit hyperactivity disorder (ADHD), combined type F90.2 ; Bipolar disorder, unspecified F31.9 and Schizoaffective disorder F25.9 [facility] [address] [id number] [address] [place] [phone] Mar, Unspecified mood [affective] disorder F39 [facility] [address] [id number] [place] [address] [id number] Mar, Menstrual period late N91.0 and High risk sexual behavior Z72.51 [facility] [address] [id number] [address] [place] [id number] Mar, Unspecified mood [affective] disorder [address] [place] [address] [id number] [address] [place] [phone] Mar, Unspecified mood [affective] disorder [address] [place] [address] [id number] [address] [place] [phone] Mar, Unspecified mood [affective] disorder [address] [place] [address] [id number] [address] [place] [phone] Feb, [facility] [address] [id number] [address] [place] [phone] Feb, Attention deficit hyperactiv ity disorder (ADHD), combined type F90.2 ; Episodic mood disorder 296.90 and Bipolar disorder, unspecified F31.9 [facility] [address] [id number] [address] [place] [phone] Feb, Major depressive disorder, r ecurrent, moderate F33.1 [facility] [address] [id number] [address] [place] [id number] Feb, Unspecified mood [affective] disorder F39 [facility] [address] [id number] [address] [place] [phone] Feb, Unspecified mood [affective] disorder F39 [facility] [address] [id number] [address] [place] [phone] Feb, [facility] [address] [id number] [address] [place] [phone] Feb, Unspecified mood [affective] disorder F39 [facility] [address] [id number] [address] [place] [id number] Feb, Bipolar disorder, unspecifie d F31.9 [facility] [address] [id number] [address] [place] [phone] Jan, [facility] [address] [id number] [address] [place] [id number] Jan, Unspecified mood [affective] disorder F39 [facility] [address] [id number] [address] [place] [id number] Jan, Unspecified mood [affective] disorder F39 [facility] [address] [id number] [address] [place] [phone] Jan, Bipolar disorder, unspecifie d F31.9 [facility] [address] [id number] [address] [place] [phone] Jan, Attention deficit hyperactiv ity disorder (ADHD), combined type F90.2 and Bipolar disorder, unspecified F31.9 [facility] [address] [id number] [address] [place] [id number] Jan, [facility] [address] [facility] [id number] [address] [place] [phone] Jan, [place] [id number] [facility] [id number] [address] [place] [phone] Jan, Unspecified mood [affective] disorder F39 [facility] [address] [facility] [id number] [address] [place] [id number] Dec, Unspecified mood [affective] disorder F39 [facility] [address] [facility] [id number] [address] [place] [id number] Dec, Unspecified mood [affective] disorder F39 [facility] [address] [facility] [id number] [address] [place] [id number] Dec, Unspecified mood [affective] disorder F39 [facility] [address] [facility] [id number] [address] [place] [phone] Dec, [facility] [address] [facility] [id number] [address] [place] [id number] Dec, Viral upper respiratory trac t infection J06.9 ; Encounter for immunization Z23 and Smoker F17.200 [facility] [address] [facility] [id number] [address] [place] [id number] Dec, [facility] [address] [facility] [id number] [address] [place] [id number] Dec, Schizoaffective disorder F25 .9 and Attention deficit hyperactivity disorder (ADHD), combined type F90.2 [facility] [address] [facility] [id number] [address] [place] [id number] Nov, [facility] [address] [facility] [id number] [address] [place] [id number] Nov, Unspecified mood [affective] disorder F39 [facility] [address] [facility] [id number] [address] [place] [id number] Nov, Schizoaffective disorder, un specified 295.70 ; Generalized anxiety disorder 300.02 and Attention deficit disorder of childhood with hyperactivity 314.01 [facility] [address] [facility] [id number] [address] [place] [id number] Oct, [facility] [address] [id number] [address] [place] [id number] Oct, [facility] [address] [id number] [address] [place] [id number] Oct, [facility] [address] [facility] [id number] [address] [place] [id number] Oct, Affective disorder 296.90 [facility] [address] [facility] [id number] [address] [place] [id number] Oct, Screen for STD (sexually tra nsmitted disease) V74.5 and Encounter for counseling regarding contraception V25.09 [facility] [address] [id number] [address] [place] [id number] Sep, [facility] [address] [facility] [id number] [address] [place] [id number] Sep, [facility] [address] [facility] [id number] [address] [place] [id number] Sep, Episodic mood disorder 296.9 0 [facility] [address] [id number] [address] [place] [phone] Sep, [facility] [address] [facility] [id number] [address] [place] [id number] Sep, [facility] [address] [facility] [id number] [address] [place] [id number] Aug, [facility] [address] [facility] [id number] [address] [place] [id number] Aug, [facility] [address] [facility] [id number] [address] [place] [id number] Aug, [facility] [address] [facility] [id number] [address] [place] [id number] Aug, Episodic mood disorder 296.9 0 [facility] [address] [facility] [id number] [address] [place] [id number] Aug, [facility] [address] [id number] [address] [place] [id number] July, Allergic rhinitis 477.9 [facility] [address] [id number] [address] [place] [id number] July, Schizoaffective disorder, un specified 295.70 [facility] [address] [id number] [address] [place] [id number] July, [facility] [address] [id number] [address] [place] [phone] Jun, [facility] [address] [id number] [address] [place] [id number] Jun, [facility] [address] [id number] [address] [place] [id number] May, [facility] [address] [id number] [address] [place] [phone] May, [facility] [address] [id number] [address] [place] [phone] May, [facility] [address] [id number] [address] [place] [phone] May, [facility] [address] [id number] [address] [place] [phone] Apr, [facility] [address] [id number] [address] [place] [id number] Apr, [facility] [address] [id number] [address] [place] [id number] Apr, [facility] [address] [id number] [address] [place] [phone] Apr, [facility] [address] [id number] [address] [place] [id number] Apr, [facility] [address] [id number] [address] [place] [id number] Apr, [facility] [address] [id number] [address] [place] [address], [place] [address] Apr, [facility] [address] [id number] [address] [place] [address], [place] [address] Apr, [facility] [address] [id number] [address] [place] [address], [place] [address] Mar, [facility] [address] [id number] [address] [place] [address], [place] [address] Mar, [facility] [address] [id number] [address] [place] [address], [place] [address] Mar, [facility] [address] [id number] [address] [place] [address], [place] [address] Mar, [facility] [address] [id number] [address] [place] [address], [place] [address] Feb, [facility] [address] [id number] [address] [place] [address], [place] [address] Feb, [facility] [address] [id number] [address] [place] [address], [place] [address] Feb, [facility] [address] [id number] [address] [place] [address], [place] [address] Feb, [facility] [address] [id number] [address] [place] [address], [place] [address] Feb, [facility] [address] [id number] [address] [place] [address], [place] [address] Feb, [facility] [address] [id number] [address] [place] [address], [place] [address] Feb, [facility] [address] [id number] [address] [place] [address], [place] [address] Feb, [facility] [address] [id number] [address] [place] [address], [place] [address] Feb, [facility] [address] [id number] [place] [address] Feb, [facility] [address] [id number] [address] [place] [address], [place] [address] Feb, [facility] [address] [id number] [address] [place] [address], [place] [address] Jan, [facility] [address] [id number] [address] [place] [address], [place] [address] Jan, [facility] [address] [id number] [address] [place] [phone] Dec, [facility] [address] [id number] [address] [place] [address], [place] [address] Dec, [facility] [address] [id number] [address] [place] [id number] Dec, [facility] [address] [id number] [address] [place] [address], [place] [address] Dec, [facility] [address] [id number] [address] [place] [address], [place] [address] Dec, [facility] [address] [id number] [address] [place] [address], [place] [address] Dec, [facility] [address] [id number] [address] [place] [id number] Dec, [facility] [address] [id number] [address] [place] [id number] Dec, [facility] [address] [id number] [address] [place] [id number] Dec, [facility] [address] [id number] [address] [place] [address], [place] [address] Dec, [facility] [address] [id number] [address] [place] [id number] Dec, [facility] [address] [id number] [address] [place] [id number] Dec, [facility] [address] [id number] [address] [place] [address], [place] [address] 08 Dec, 2013 [facility] [address] [id number] [address] [place] [address], [place] [address] Dec, 2013 [facility] [address] [id number] [address] [place] [address], [place] [address] Dec, 2013 [facility] [address] [id number] [address] [place] [address], [place] [address] Dec, 2013 [facility] [address] [id number] [address] [place] [address], [place] [address] Dec, 2013 [facility] [address] [id number] [address] [place] [address], [place] [address] Dec, [facility] [address] [id number] [address] [place] [address], [place] [address] Dec, 2013 [facility] [address] [id number] [address] [place] [address], [place] [address] Dec, 2013 [facility] [address] [id number] [address] [place] [address], [place] [address] Dec, [facility] [address] [id number] [address] [place] [address], [place] [address] Dec, [facility] [address] [id number] [address] [place] [address], [place] [address] Dec, [facility] [address] [id number] [address] [place] [address], [place] [address] Dec, [facility] [address] [id number] [address] [place] [address], [place] [address] Nov, [facility] [address] [id number] [address] [place] [address], [place] [address] Nov, [facility] [address] [id number] [address] [place] [address], [place] [address] Nov, [facility] [address] [id number] [address] [place] [address], [place] [address] Nov, 2013 [facility] [address] [id number] [address] [place] [address], [place] [address] 22 Nov, 2013 [facility] [address] [id number] [address] [place] [address], [place] [address] 22 Nov, 2013 [facility] [address] [id number] [address] [place] [address], [place] [address] 17 Nov, 2013 [facility] [address] [id number] [address] [place] [address], [place] [address] 17 Nov, 2013 [facility] [address] [id number] [address] [place] [address], [place] [address] 15 Nov, 2013 [facility] [address] [id number] [address] [place] [address], [place] [address] 15 Nov, 2013 [facility] [address] [id number] [address] [place] [address], [place] [address] Nov, 2013 [facility] [address] [id number] [address] [place] [address], [place] [address] Nov, 2013 [facility] [address] [id number] [address] [place] [address], [place] [address] Nov, 2013 [facility] [address] [id number] [address] [place] [address], [place] [address] Nov, 2013 [facility] [address] [id number] [address] [place] [address], [place] [address] Oct, [facility] [address] [id number] [address] [place] [address], [place] [address] Oct, [facility] [address] [id number] [address] [place] [address], [place] [address] Oct, [facility] [address] [id number] [address] [place] [address], [place] [address] Oct, [facility] [address] [id number] [address] [place] [address], [place] [address] Oct, [facility] [address] [id number] [address] [place] [address], [place] [address] Oct, [facility] [address] [id number] [address] [place] [address], [place] [address] Oct, [facility] [address] [id number] [address] [place] [address], [place] [address] Oct, [facility] [address] [id number] [address] [place] [address], [place] [address] Sep, [facility] [address] [id number] [address] [place] [address], [place] [address] Sep, [facility] [address] [id number] [address] [place] [address], [place] [address] Sep, [facility] [address] [id number] [address] [place] [address], [place] [address] Sep, [facility] [address] [id number] [address] [place] [address], [place] [address] Sep, [facility] [address] [id number] [address] [place] [address], [place] [address] Sep, [facility] [address] [id number] [address] [place] [address], [place] [address] Aug, [facility] [address] [id number] [address] [place] [address], [place] [address] Aug, [facility] [address] [id number] [address] [place] [address], [place] [address] July, [facility] [address] [id number] [address] [place] [address], [place] [address] July, [facility] [address] [id number] [address] [place] [address], [place] [address] July, [facility] [address] [id number] [address] [place] [address], [place] [address] July, [facility] [address] [id number] [address] [place] [address], [place] [address] July, [facility] [address] [id number] [facility] [address] July, [facility] [address] [id number] [facility] [address] July, [facility] [address] [id number] [address] [place] [address], [place] [address] July, [facility] [address] [id number] [address] [place] [address], [place] [address] July, [facility] [address] [id number] [address] [place] [address], [place] [address] July, [facility] [address] [id number] [address] [place] [address], [place] [address] July, [facility] [address] [id number] [address] [place] [address], [place] [address] July, [facility] [address] [id number] [address] [place] [address], [place] [address] July, [facility] [address] [id number] [address] [place] [address], [place] [address] July, [facility] [address] [id number] [address] [place] [address], [place] [address] July, [facility] [address] [id number] [address] [place] [address], [place] [address] July, [facility] [address] [id number] [address] [place] [address], [place] [address] July, [facility] [address] [id number] [address] [place] [address], [place] [address] July, [facility] [address] [id number] [address] [place] [address], [place] [address] Jun, [facility] [address] [id number] [address] [place] [address], [place] [address] Jun, [facility] [address] [id number] [address] [place] [address], [place] [address] Jun, [facility] [address] [id number] [facility] [address] Jun, [facility] [address] [id number] [facility] [address] Jun, [facility] [address] [id number] [facility] [address] Jun, [facility] [address] [id number] [address] [place] [address], [place] [address] Jun, [facility] [address] [id number] [facility] [address] Jun, [facility] [address] [id number] [address] [place] [address], [place] [address] Jun, [facility] [address] [id number] [address] [place] [address], [place] [address] Jun, [facility] [address] [id number] [address] [place] [address], [place] [address] Jun, [facility] [address] [id number] [address] [place] [address], [place] [address] Jun, [facility] [address] [id number] [address] [place] [address], [place] [address] May, [facility] [address] [id number] [address] [place] [address], [place] [address] May, [facility] [address] [id number] [address] [place] [address], [place] [address] May, [facility] [address] [id number] [address] [place] [address], [place] [address] May, [facility] [address] [id number] [address] [place] [address], [place] [address] May, [facility] [address] [id number] [address] [place] [address], [place] [address] 06 May, 2013 [facility] [address] [id number] [address] [place] [address], [place] [address] 05 May, 2013 [facility] [address] [id number] [address] [place] [address], [place] [address] 05 May, 2013 [facility] [address] [id number] [address] [place] [address], [place] [address] May, [facility] [address] [id number] [address] [place] [address], [place] [address] May, [facility] [address] [id number] [address] [place] [address], [place] [address] Apr, [facility] [address] [id number] [address] [place] [address], [place] [address] Apr, [facility] [address] [id number] [address] [place] [address], [place] [address] Apr, [facility] [address] [id number] [address] [place] [address], [place] [address] Apr, [facility] [address] [id number] [address] [place] [address], [place] [address] Apr, [facility] [address] [id number] [address] [place] [address], [place] [address] Apr, [facility] [address] [id number] [address] [place] [address], [place] [address] Apr, [facility] [address] [id number] [address] [place] [address], [place] [address] Apr, [facility] [address] [id number] [address] [place] [address], [place] [address] Apr, [facility] [address] [id number] [address] [place] [address], [place] [address] Apr, [facility] [address] [id number] [address] [place] [address], [place] [address] Apr, [facility] [address] [id number] [address] [place] [address], [place] [address] Apr, [facility] [address] [id number] [address] [place] [address], [place] [address] Apr, [facility] [address] [id number] [address] [place] [address], [place] [address] Apr, [facility] [address] [id number] [address] [place] [address], [place] [address] Mar, [facility] [address] [id number] [address] [place] [address], [place] [address] Mar, [facility] [address] [id number] [address] [place] [address], [place] [address] Mar, [facility] [address] [id number] [address] [place] [address], [place] [address] Mar, [facility] [address] [id number] [address] [place] [address], [place] [address] Mar, [facility] [address] [id number] [address] [place] [address], [place] [address] Mar, [facility] [address] [id number] [address] [place] [address], [place] [address] Mar, [facility] [address] [id number] [address] [place] [address], [place] [address] Mar, [facility] [address] [id number] [address] [place] [address], [place] [address] Mar, [facility] [address] [id number] [address] [place] [address], [place] [address] Mar, [facility] [address] [id number] [address] [place] [address], [place] [address] Mar, [facility] [address] [id number] [address] [place] [address], [place] [address] Mar, [facility] [address] [id number] [address] [place] [address], [place] [address] Feb, [facility] [address] [id number] [address] [place] [address], [place] [address] Feb, [facility] [address] [id number] [address] [place] [address], [place] [address] Feb, [facility] [address] [id number] [address] [place] [address], [place] [address] Feb, [facility] [address] [id number] [address] [place] [address], [place] [address] Feb, [facility] [address] [id number] [address] [place] [address], [place] [address] Feb, [facility] [address] [id number] [address] [place] [address], [place] [address] Feb, [facility] [address] [id number] [address] [place] [address], [place] [address] Feb, [facility] [address] [id number] [address] [place] [address], [place] [address] Feb, [facility] [address] [id number] [address] [place] [address], [place] [address] Feb, [facility] [address] [id number] [address] [place] [address], [place] [address] Feb, [facility] [address] [id number] [address] [place] [address], [place] [address] Jan, [facility] [address] [id number] [address] [place] [address], [place] [address] Jan, [facility] [address] [id number] [address] [place] [address], [place] [address] Jan, [facility] [address] [id number] [address] [place] [address], [place] [address] Jan, [facility] [address] [id number] [address] [place] [address], [place] [address] Jan, [facility] [address] [id number] [address] [place] [address], [place] [address] Jan, [facility] [address] [id number] [address] [place] [address], [place] [address] Jan, [facility] [address] [id number] [address] [place] [address], [place] [address] Dec, [facility] [address] [id number] [address] [place] [address], [place] [address] Dec, [facility] [address] [id number] [address] [place] [address], [place] [address] Dec, [facility] [address] [id number] [address] [place] [address], [place] [address] Dec, [facility] [address] [id number] [address] [place] [address], [place] [address] Dec, [facility] [address] [id number] [address] [place] [address], [place] [address] Nov, [facility] [address] [id number] [address] [place] [address], [place] [address] Oct, [facility] [address] [id number] [address] [place] [address], [place] [address] Oct, [facility] [address] [id number] [address] [place] [address], [place] [address] Oct, [facility] [address] [id number] [address] [place] [address], [place] [address] Oct, [facility] [address] [id number] [address] [place] [address], [place] [address] Oct, [facility] [address] [id number] [address] [place] [address], [place] [address] Sep, [facility] [address] [id number] [address] [place] [address], [place] [address] Sep, [facility] [address] [id number] [address] [place] [address], [place] [address] Sep, [facility] [address] [id number] [address] [place] [address] [place] [address] Sep, [facility] [address] [id number] [address] [place] [address], [place] [address] Aug, [facility] [address] [id number] [address] [place] [address], [place] [address] Aug, [facility] [address] [id number] [address] [place] [address], [place] [address] Aug, [facility] [address] [id number] [address] [place] [address], [place] [address] Aug, [facility] [address] [id number] [address] [place] [address], [place] [address] Aug, [facility] [facility] [address] [id number] [address] [place] [address], [place] [address] July, [facility] [address] [id number] [address] [place] [address], [place] [address] July, [facility] [address] [id number] [address] [place] [address], [place] [address] July, [facility] [address] [id number] [address] [place] [address], [place] [address] July, [facility] [address] [id number] [address] [place] [address], [place] [address] Jun, [facility] [address] [id number] [address] [place] [address], [place] [address] Jun, [facility] [address] [id number] [address] [place] [address], [place] [address] May, [facility] [address] [id number] [address] [place] [address], [place] [address] 07 May, 2012 [facility] [address] [id number] [address] [place] [address], [place] [address] 28 Apr, 2012 [facility] [address] [id number] [address] [place] [address], [place] [address] Apr, [facility] [address] [id number] [address] [place] [address], [place] [address] Mar, [facility] [address] [id number] [address] [place] [address], [place] [address] Mar, [facility] [address] [id number] [address] [place] [address], [place] [address] Feb, [facility] [address] [id number] [address] [place] [address], [place] [address] Feb, [facility] [address] [id number] [address] [place] [address], [place] [address] Feb, [facility] [address] [id number] [address] [place] [address], [place] [address] Feb, [facility] [address] [id number] [address] [place] [address], [place] [id number] Feb, [facility] [address] [id number] [address] [place] [address], [place] [address] Feb, [facility] [address] [id number] [address] [place] [address], [place] [id number] Jan, [facility] [address] [id number] [address] [place] [address], [place] [address] Jan, [facility] [address] [id number] [address] [place] [address], [place] [address] Jan, [facility] [address] [id number] [address] [place] [address], [place] [address] Jan, [facility] [address] [id number] [address] [place] [address], [place] [address] Dec, [facility] [address] [id number] [address] [place] [address], [place] [address] 15 Dec, 2011 [facility] [address] [id number] [address] [place] [address], [place] [id number] 18 Nov, 2011 [facility] [address] [id number] [address] [place] [address], [place] [address] Nov, [facility] [address] [id number] [address] [place] [address], [place] [address] Nov, [facility] [address] [id number] [address] [place] [address], [place] [address] Oct, [facility] [address] [id number] [address] [place] [address], [place] [address] Sep, [facility] [address] [id number] [address] [place] [address], [place] [address] Aug, [facility] [address] [id number] [address] [place] [address], [place] [address] July, [facility] [address] [id number] [address] [place] [address], [place] [address] July, [facility] [address] [id number] [address] [place] [address], [place] [address] July, [facility] [address] [id number] [address] [place] [address], [place] [address] July, [facility] [address] [id number] [address] [place] [address], [place] [address] July, [facility] [address] [id number] [address] [place] [address], [place] [address] Jun, [facility] [address] [id number] [address] [place] [address], [place] [address] May, [facility] [address] [id number] [address] [place] [address], [place] [id number] May, [facility] [address] [id number] [address] [place] [address], [place] [address] May, [facility] [address] [id number] [address] [place] [address], [place] [address] Apr, [facility] [address] [id number] [address] [place] [address], [place] [address] Apr, [facility] [address] [id number] [address] [place] [address], [place] [id number] 16 Mar, 2011 [facility] [address] [id number] [address] [place] [address], [place] [id number] 16 Feb, 2011 [facility] [address] [id number] [address] [place] [address], [place] [id number] 16 Feb, 2011 [facility] [address] [id number] [address] [place] [address], [place] [id number] 16 Feb, 2011 [facility] [address] [id number] [address] [place] [address], [place] [id number] 15 Feb, 2011 [facility] [address] [id number] [address] [place] [address], [place] [id number] 14 Feb, 2011 [facility] [address] [id number] [address] [place] [address], [place] [id number] 14 Feb, 2011 [facility] [address] [id number] [address] [place] [address], [place] [id number] 14 Feb, 2011 [facility] [address] [id number] [address] [place] [address], [place] [id number] 29 Jan, 2011 [facility] [address] [id number] [address] [place] [address], [place] [id number] 19 Jan, 2011 [facility] [address] [id number] [address] [place] [address], [place] [address] 19 Jan, 2011 [facility] [address] [id number] [address] [place] [address], [place] [address] 15 Aug, 2010 [facility] [address] [id number] [address] [place] [address], [place] [address] 30 Feb, 2010 [facility] [address] [id number] [address] [place] [address], [place] [address] 21 Feb, 2010 [facility] [address] [id number] [address] [place] [address], [place] [address] 02 Feb, 2010 [facility] [address] [id number] [address] [place] [address], [place] [address] Dec, [facility] [address] [facility] [id number] [address] [place] [id number] Jun, [facility] [address] [facility] [id number] [address] [place] [id number] Dec, [facility] [address] [facility] [id number] [address] [place] [id number] Sep, IMMUNIZATIONS No Known Immunizations SOCIAL HISTORY [...] disorder, unspecified Medical History Attention deficit disorder o f childhood without mention of hyperactivity Medical History Leukorrhea, not specified as infective Medical History hx of MRSA of elbow Medical History Schizoaffective disorder, unspecified Medical History Generalized anxiety disorder Medical History Bipolar disorder, unspecified Medical History Major depressive disorder, recurrent epi sode, moderate Medical History Attention deficit disorder of childhood with hyperactivity Medical History HX of hyperprolactemia due to antipsycho tic medication Medical History PTSD Surgical History Meniscus Repair Left Knee Hospitalization History [facility] Mental Breakdown 05/22 15 Hospitalization History Overdose VC 07/17/15 Hospitalization History Overdose 01/2018
--- OUTSIDE RECORDS SUMMARY | 2019-07-15 19:42 | XMS REPORT ---
Author Author Shan [facility] Organization [facility] Address [address], [place] [id number] Care Team Providers Care Associate Product Manager Name Role Phone Tao [facility] Unavailable PROBLEMS Type Condition ICD9-CM Code [id number] Code Onset Dates Condition S tatus SNOMED Code Problem Low hemoglobin D64.9 Active 70489 7008 Problem Long-term use of high-risk medication Z79.899 Active 598220253 Problem Pain in left knee M25.562 Active 30 312371 Problem Chronic fatigue R53.82 Active 5270 2003 Problem Seasonal allergic rhinitis due to pollen J30.1 Active 51926133 Problem Bipolar disorder with depression F31.30 Active 94393477 Problem Routine gynecological examination Z01.419 Active 792094170 Problem High risk medication use Z79.899 Activ e 892083818 Problem Unspecified mood [affective] disorder F39 Active 656757522 Problem Iron deficiency anemia due to chronic blood loss D 50.0 Active 31860468 Problem Attention deficit hyperactivity disorder (ADHD), combi cosmo type F90.2 Active 729249573 Problem Bipolar disorder, unspecified F31.9 Active 37856909 Problem Generalized anxiety disorder F41.1 A ctive 02006422 Problem Amenorrhea N91.2 Active 36469956 Problem Schizoaffective disorder F25.9 Activ e 30254443 Problem Well woman exam Z01.419 Active 3103 34811 Problem Schizoaffective disorder, bipolar type F25.0 Active 94083432 Problem care, first in first trimester Z34.01 Active 014894128 Problem Vitamin D deficiency E55.9 Active 66859695 Problem Anxiety F41.9 Active 92103213 Problem Pain in right knee M25.561 Active 8 4089852 Problem General counseling and advice on female contraception Z30.09 Active 13775004 Problem Social phobia F40.10 Active 253258 02 Problem Relationship problem with family member Z63.8 Active 601348423 Problem Chronic post-traumatic stress disorder (PTSD) F43. 12 Active 063019109 Problem Positive test Z32.01 Active 353367076 ALLERGIES No Information ENCOUNTERS Encounter Location Date Diagnosis [facility] [address] [facility] [id number] [address] [place] [phone] July, [facility] [address] [facility] [id number] [address] [place] [phone] July, [facility] [address] [facility] [id number] [address] [place] [phone] July, [facility] [address] [facility] [id number] [address] [place] [phone] Jun, [facility] [address] [facility] [id number] [address] [place] [phone] Jun, [facility] [address] [place] [id number] [address] [place] [phone] Jun, care in third trime ster Z34.93 and 37 weeks gestation of Z3A.37 [facility] [address] [facility] [id number] [address] [place] [phone] Jun, [facility] [address] [place] [id number] [address] [place] [phone] Jun, Third trimester Z3 4.93 and 36 weeks gestation of Z3A.36 [place] [id number] [place] [phone] Jun, [facility] [address] [facility] [id number] [address] [place] [phone] Jun, Third trimester Z3 4.93 ; 35 weeks gestation of Z3A.35 and Palpitations R00.2 [facility] [address] [facility] [id number] [address] [place] [phone] Jun, [facility] [address] [place] [id number] [address] [place] [phone] May, [facility] [address] [facility] [id number] [address] [place] [phone] 26 May, 2019 Third trimester Z3 4.93 ; 33 weeks gestation of Z3A.33 ; Anxiety F41.9 and Encounter for immunization Z23 [facility] [address] [id number] [address] [place] [phone] May, [facility] [address] [facility] [id number] [address] [place] [phone] 24 May, 2019 [facility] [address] [facility] [id number] [address] [place] [phone] May, [facility] [address] [facility] [id number] [address] [place] [phone] 17 May, 2019 [facility] [address] [facility] [id number] [address] [place] [phone] May, [facility] [address] [facility] [id number] [address] [place] [phone] 16 May, 2019 [facility] [address] [facility] [id number] [address] [place] [phone] 12 May, 2019 [facility] [address] [facility] [id number] [address] [place] [phone] 10 May, 2019 [facility] [address] [facility] [id number] [address] [place] [phone] 10 May, 2019 care, first pregnan cy in third trimester Z34.03 ; 31 weeks gestation of Z3A.31 and Decreased movements in third trimester, single or unspecified fetus O36.8130 [facility] [address] [facility] [id number] [address] [place] [phone] 06 May, 2019 Fever and chills R50.9 and F mel-like symptoms R68.89 [facility] [address] [facility] [id number] [address] [place] [phone] 11 Apr, 2019 [facility] [address] [place] [id number] [address] [place] [phone] Apr, Second trimester Z 34.92 and 27 weeks gestation of Z3A.27 [facility] [address] [id number] [address] [place] [phone] 15 Mar, 2019 Acute non-recurrent maxillar y sinusitis J01.00 and Cough R05 [facility] [address] [id number] [address] [place] [phone] 15 Mar, 2019 [facility] [address] [id number] [address] [place] [phone] Mar, [facility] [address] [id number] [address] [place] [phone] Mar, [facility] [address] [id number] [address] [place] [phone] Mar, care in second trim gabo Z34.92 and 23 weeks gestation of Z3A.23 [place] [address] [facility] [id number] [address] [place] [phone] Feb, care in second trim gabo Z34.92 and 19 weeks gestation of Z3A.19 [place] [address] [id number] [address] [place] [phone] Feb, [place] [address] [facility] [id number] [address] [place] [phone] Feb, care in second trim gabo Z34.92 ; 19 weeks gestation of Z3A.19 and Encounter for immunization Z23 [facility] [address] [id number] [address] [place] [phone] Feb, Dental examination Z01.20 [place] [address] [id number] [address] [place] [phone] Feb, [place] [address] [facility] [id number] [address] [place] [phone] Jan, [facility] [address] [facility] [id number] [address] [place] [phone] Jan, care in second trim gabo Z34.92 and 15 weeks gestation of Z3A.15 [facility] [address] [id number] [address] [place] [phone] Dec, First trimester Z3 4.91 ; 11 weeks gestation of Z3A.11 and Nausea/vomiting in O21.9 [facility] [address] [id number] [address] [place] [phone] Dec, [facility] [address] [id number] [address] [place] [phone] Dec, [facility] [address] [id number] [address] [place] [phone] Dec, care, first pregnan cy in first trimester Z34.01 [facility] [address] [facility] [id number] [address] [place] [phone] Dec, [place] [address] [facility] [id number] [address] [place] [phone] Dec, Chronic post-traumatic stres s disorder (PTSD) F43.12 ; Relationship problem with family member Z63.8 and Positive test Z32.01 [facility] [address] [id number] [address] [place] [phone] Nov, [facility] [address] [facility] [id number] [address] [place] [phone] Nov, care, first pregnan cy in first trimester Z34.01 [facility] [address] [id number] [address] [place] [phone] Nov, [facility] [address] [id number] [address] [place] [phone] Nov, care, first pregnan cy in first trimester Z34.01 and 7 weeks gestation of Z3A.01 [facility] [address] [id number] [address] [place] [phone] Nov, [facility] [address] [id number] [address] [place] [phone] 20 Nov, 2018 [facility] [address] [id number] [address] [place] [id number] 18 Nov, 2018 [facility] [address] [id number] [address] [place] [phone] Nov, [facility] [address] [id number] [address] [place] [phone] Nov, [place] [address] [id number] [address] [place] [phone] Nov, Positive test Z32. 01 ; Well woman exam with routine gynecological exam Z01.419 ; Amenorrhea N91.2 ; , unspecified gestational age Z34.90 ; Encounter for smoking cessation counseling Z71.6 ; Acute vaginitis N76.0 and Other specified bacterial agents as the cause of diseases classified elsewhere B96.89 [place] [address] [facility] [id number] [address] [place] [phone] Nov, [place] [address] [id number] [address] [place] [phone] Nov, [place] [address] [id number] [address] [place] [phone] Oct, Bipolar disorder with depres arlen F31.30 [place] [address] [id number] [address] [place] [phone] Oct, Bipolar disorder with depres arlen F31.30 ; Chronic post-traumatic stress disorder (PTSD) F43.12 and Relationship problem with family member Z63.8 [place] [id number] [id number] [address] [place] [phone] Aug, Bipolar disorder with depres arlen F31.30 ; Chronic post-traumatic stress disorder (PTSD) F43.12 and Relationship problem with family member Z63.8 [place] [address] [id number] [address] [place] [phone] Mar, Schizoaffective disorder, bi polar type F25.0 ; Social phobia F40.10 ; Chronic post-traumatic stress disorder (PTSD) F43.12 and Relationship problem with family member Z63.8 [facility] [employer] [id number] [place] [address] Oct, Pain in right shoulder M25.511 and Bipol ar disorder with depression F31.30 [facility] [address] [facility] [id number] [address] [place] [phone] July, [facility] [address] [facility] [id number] [address] [place] [phone] July, [facility] [address] [facility] [id number] [address] [place] [phone] July, Well woman exam Z01.419 and Vaginal discharge N89.8 [facility] [address] [facility] [id number] [address] [place] [phone] Jun, [facility] [address] [facility] [id number] [address] [place] [phone] Mar, [facility] [address] [facility] [id number] [address] [place] [phone] May, Bipolar disorder, unspecifie d F31.9 [facility] [address] [facility] [id number] [address] [place] [phone] May, Bipolar disorder, unspecifie d F31.9 ; Attention deficit hyperactivity disorder (ADHD), combined type F90.2 and Schizoaffective disorder F25.9 [facility] [address] [facility] [id number] [address] [place] [phone] May, Bipolar disorder with depres arlen F31.30 [facility] [address] [facility] [id number] [address] [place] [phone] May, Bipolar disorder, unspecifie d F31.9 ; Attention deficit hyperactivity disorder (ADHD), combined type F90.2 and Schizoaffective disorder F25.9 [facility] [address] [facility] [id number] [address] [place] [phone] Apr, Seasonal allergic rhinitis d ue to pollen J30.1 [facility] [address] [facility] [id number] [address] [place] [phone] Apr, [facility] [address] [facility] [id number] [address] [place] [phone] Mar, Attention deficit disorder ( ADD) without 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 ; Bipolar disorder with depression F31.30 and Generalized anxiety disorder F41.1 [facility] [address] [place] [id number] [address] [place] [phone] Mar, [facility] [address] [place] [id number] [address] [place] [phone] Feb, Unspecified mood [affective] disorder F39 [place] [address] [place] [id number] [address] [place] [phone] Feb, Unspecified mood [affective] disorder F39 [place] [address] [place] [id number] [address] [place] [phone] Feb, [facility] [address] [place] [id number] [address] [place] [phone] Jan, Amenorrhea N91.2 ; Vitamin D deficiency E55.9 and Iron deficiency anemia due to chronic blood loss D50.0 [place] [address] [place] [id number] [address] [place] [phone] Jan, Encounter for test Z32.00 [facility] [address] [place] [id number] [address] [place] [phone] Dec, Unspecified mood [affective] disorder F39 ; Bipolar disorder, unspecified F31.9 and Attention deficit hyperactivity disorder (ADHD), combined type F90.2 [facility] [address] [facility] [id number] [address] [place] [phone] Nov, [facility] [address] [place] [id number] [address] [place] [phone] Nov, [facility] [address] [place] [id number] [address] [place] [phone] Nov, [facility] [address] [id number] [address] [place] [phone] Nov, [facility] [address] [id number] [address] [place] [phone] Nov, [facility] [address] [id number] [address] [place] [phone] Nov, Dysuria R30.0 [facility] [address] [id number] [address] [place] [phone] Oct, [facility] [address] [id number] [address] [place] [phone] Oct, [facility] [address] [id number] [address] [place] [phone] Sep, [facility] [address] [facility] [id number] [address] [place] [phone] Sep, Bipolar disorder, unspecifie d F31.9 and Schizoaffective disorder F25.9 [facility] [address] [facility] [id number] [address] [place] [phone] Sep, [facility] [address] [facility] [id number] [address] [place] [phone] Aug, Unspecified mood [affective] disorder F39 [facility] [address] [facility] [id number] [address] [place] [phone] Aug, [facility] [address] [facility] [id number] [address] [place] [phone] 14 Aug, 2015 General counseling and advic e on female contraception Z30.09 and Iron deficiency anemia due to chronic blood loss D50.0 [facility] [address] [id number] [address] [place] [phone] July, 2016 Routine gynecological examin ation Z01.419 ; General counseling and advice on female contraception Z30.09 ; High risk medication use Z79.899 ; Other specified bacterial agents as the cause of diseases classified elsewhere B96.89 and Acute vaginitis N76.0 [place] [address] [id number] [address] [place] [phone] July, Attention deficit hyperactiv ity disorder (ADHD), combined type F90.2 ; Bipolar disorder, unspecified F31.9 and Schizoaffective disorder F25.9 [place] [address] [id number] [address] [place] [phone] July, Unspecified mood [affective] disorder F39 [place] [address] [id number] [address] [place] [phone] July, [place] [address] [id number] [address] [place] [phone] July, [place] [address] [facility] [id number] [address] [place] [phone] July, Low hemoglobin D64.9 [place] [address] [id number] [address] [place] [phone] July, [place] [address] [id number] [address] [place] [phone] July, General counselling and advi ce on contraception Z30.09 ; Pain in left knee M25.562 ; Pain in right knee M25.561 ; Chronic fatigue R53.82 and Vitamin D deficiency E55.9 [place] [address] [id number] [address] [place] [phone] Jun, Fatigue R53.83 [place] [address] [id number] [address] [place] [phone] Jun, Fatigue R53.83 ; Low hemoglo bin D64.9 ; Long-term use of high-risk medication Z79.899 ; Sore throat J02.9 and Fever, low grade R50.9 [place] [address] [facility] [id number] [address] [place] [phone] Jun, Unspecified mood [affective] disorder F39 [facility] [address] [id number] [address] [place] [phone] May, Unspecified mood [affective] disorder F39 [facility] [address] [id number] [address] [place] [phone] May, [facility] [address] [id number] [address] [place] [phone] May, Attention deficit hyperactiv ity disorder (ADHD), combined type F90.2 ; Bipolar disorder, unspecified F31.9 and Schizoaffective disorder F25.9 [facility] [address] [id number] [address] [place] [phone] May, [facility] [address] [id number] [address] [place] [phone] Apr, [facility] [address] [id number] [address] [place] [phone] Apr, [facility] [address] [id number] [address] [place] [phone] Apr, [facility] [address] [id number] [address] [place] [phone] Apr, [facility] [address] [id number] [place] [address] [id number] Apr, Ingestion of unknown drug T5 0.901A [facility] [address] [id number] [address] [place] [phone] Apr, [facility] [address] [id number] [address] [place] [phone] 17 Apr, 2015 Unspecified mood [affective] disorder F39 [facility] [address] [id number] [address] [place] [phone] 16 Apr, 2015 Unspecified mood [affective] disorder F39 [facility] [address] [id number] [address] [place] [phone] Apr, Unspecified mood [affective] disorder F39 [facility] [address] [id number] [address] [place] [phone] Apr, 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 9 ; Attention deficit hyperactivity disorder (ADHD), combined type F90.2 ; Bipolar disorder, unspecified F31.9 and Schizoaffective disorder F25.9 [facility] [address] [id number] [address] [place] [phone] Mar, Unspecified mood [affective] disorder F39 [facility] [address] [id number] [place] [address] [id number] Mar, Menstrual period late N91.0 and High risk sexual behavior Z72.51 [facility] [address] [id number] [address] [place] [phone] Mar, Unspecified mood [affective] disorder [address] [place] [address] [id number] [address] [place] [phone] Mar, Unspecified mood [affective] disorder F39 [facility] [address] [id number] [address] [place] [phone] Mar, Unspecified mood [affective] disorder [address] [place] [address] [id number] [address] [place] [phone] Feb, [facility] [address] [id number] [address] [place] [phone] Feb, Attention deficit hyperactiv ity disorder (ADHD), combined type F90.2 ; Episodic mood disorder 296.90 and Bipolar disorder, unspecified F31.9 [facility] [address] [id number] [address] [place] [phone] Feb, Major depressive disorder, r ecurrent, moderate F33.1 [facility] [address] [id number] [address] [place] [phone] Feb, Unspecified mood [affective] disorder F39 [facility] [address] [id number] [address] [place] [phone] Feb, Unspecified mood [affective] disorder F39 [facility] [address] [id number] [address] [place] [phone] Feb, [facility] [address] [id number] [address] [place] [phone] Feb, Unspecified mood [affective] disorder F39 [facility] [address] [id number] [address] [place] [id number] Feb, Bipolar disorder, unspecifie d F31.9 [facility] [address] [id number] [address] [place] [id number] Jan, [facility] [address] [id number] [address] [place] [id number] Jan, Unspecified mood [affective] disorder F39 [facility] [address] [id number] [address] [place] [id number] Jan, Unspecified mood [affective] disorder F39 [facility] [address] [id number] [address] [place] [id number] Jan, Bipolar disorder, unspecifie d F31.9 [facility] [address] [id number] [address] [place] [id number] Jan, Attention deficit hyperactiv ity disorder (ADHD), combined type F90.2 and Bipolar disorder, unspecified F31.9 [facility] [address] [id number] [address] [place] [id number] Jan, [facility] [address] [id number] [address] [place] [id number] Jan, [facility] [address] [id number] [address] [place] [id number] Jan, Unspecified mood [affective] disorder F39 [facility] [address] [id number] [address] [place] [id number] Dec, Unspecified mood [affective] disorder F39 [facility] [address] [id number] [address] [place] [address] [address] Dec, Unspecified mood [affective] disorder F39 [facility] [address] [id number] [address] [place] [address] Dec, Unspecified mood [affective] disorder F39 [facility] [address] [facility] [id number] [address] [place] [address] Dec, [facility] [address] [facility] [id number] [address] [place] [address] Dec, Viral upper respiratory trac t infection J06.9 ; Encounter for immunization Z23 and Smoker F17.200 [facility] [address] [facility] [id number] [address] [place] [address] Dec, [facility] [address] [facility] [id number] [address] [place] [address] Dec, Schizoaffective disorder F25 .9 and Attention deficit hyperactivity disorder (ADHD), combined type F90.2 [facility] [address] [facility] [id number] [address] [place] [address] Nov, [facility] [address] [facility] [id number] [address] [place] [address] Nov, Unspecified mood [affective] disorder F39 [facility] [address] [facility] [id number] [address] [place] [address] Nov, Schizoaffective disorder, un specified 295.70 ; Generalized anxiety disorder 300.02 and Attention deficit disorder of childhood with hyperactivity 314.01 [facility] [address] [id number] [address] [place] [address] Oct, [facility] [address] [facility] [id number] [address] [place] [address] Oct, [facility] [address] [facility] [id number] [address] [place] [address] Oct, [facility] [address] [facility] [id number] [address] [place] [address] Oct, Affective disorder 296.90 [facility] [address] [facility] [id number] [address] [place] [id number] Oct, Screen for STD (sexually tra nsmitted disease) V74.5 and Encounter for counseling regarding contraception V25.09 [facility] [address] [id number] [address] [place] [address] Sep, [facility] [address] [facility] [id number] [address] [place] [address] Sep, [facility] [address] [id number] [address] [place] [address] Sep, Episodic mood disorder 296.9 0 [facility] [address] [facility] [id number] [address] [place] [address] Sep, [facility] [address] [facility] [id number] [address] [place] [address] Sep, [facility] [address] [facility] [id number] [address] [place] [id number] Aug, [facility] [address] [facility] [id number] [address] [place] [address] Aug, [facility] [address] [facility] [id number] [address] [place] [id number] Aug, [facility] [address] [facility] [id number] [address] [place] [address] Aug, Episodic mood disorder 296.9 0 [facility] [address] [facility] [id number] [address] [place] [id number] Aug, [facility] [address] [facility] [id number] [address] [place] [address] July, Allergic rhinitis 477.9 [facility] [address] [facility] [id number] [address] [place] [address] July, Schizoaffective disorder, un specified 295.70 [facility] [address] [id number] [address] [place] [address], [place] [address] July, [facility] [address] [id number] [address] [place] [address], [place] [address] 14 Jun, 2014 [facility] [address] [id number] [address] [place] [address], [place] [address] 13 Jun, 2014 [facility] [address] [id number] [address] [place] [address], [place] [address] 24 May, 2014 [facility] [address] [id number] [address] [place] [address], [place] [address] 24 May, 2014 [facility] [address] [id number] [address] [place] [address], [place] [address] May, [facility] [address] [id number] [address] [place] [address], [place] [address] May, [facility] [address] [id number] [address] [place] [address], [place] [address] 20 Apr, 2014 [facility] [address] [id number] [address] [place] [address], [place] [address] Apr, [facility] [address] [id number] [address] [place] [address], [place] [address] Apr, [facility] [address] [id number] [address] [place] [id number] Apr, [facility] [address] [id number] [address] [place] [id number] 18 Apr, 2014 [facility] [address] [id number] [address] [place] [address], [place] [address] Apr, [facility] [address] [id number] [address] [place] [address], [place] [address] Apr, [facility] [address] [id number] [address] [place] [address] Apr, 2014 [facility] [address] [id number] [address] [place] [id number] Mar, [facility] [address] [id number] [address] [place] [address], [place] [address] Mar, [facility] [address] [id number] [address] [place] [address], [place] [address] Mar, [facility] [address] [id number] [address] [place] [address], [place] [address] Mar, [facility] [address] [id number] [address] [place] [address], [place] [address] Feb, [facility] [address] [id number] [address] [place] [address], [place] [address] Feb, [facility] [address] [id number] [address] [place] [address], [place] [address] Feb, [facility] [address] [id number] [address] [place] [address], [place] [address] Feb, [facility] [address] [id number] [address] [place] [address], [place] [address] Feb, [facility] [address] [id number] [address] [place] [address], [place] [address] Feb, [facility] [address] [id number] [address] [place] [address], [place] [address] Feb, [facility] [address] [id number] [address] [place] [address], [place] [address] Feb, [facility] [address] [id number] [address] [place] [address], [place] [address] Feb, [facility] [address] [id number] [address] [place] [address], [place] [address] Feb, [facility] [address] [id number] [address] [place] [address], [place] [address] Feb, [facility] [address] [id number] [address] [place] [address], [place] [address] Jan, [facility] [address] [id number] [address] [place] [address], [place] [address] Jan, [facility] [address] [id number] [address] [place] [address], [place] [address] Dec, [facility] [address] [id number] [address] [place] [address], [place] [address] Dec, [facility] [address] [id number] [address] [place] [address], [place] [address] Dec, [facility] [address] [id number] [address] [place] [address], [place] [address] Dec, [facility] [address] [id number] [address] [place] [address], [place] [address] Dec, [facility] [address] [id number] [address] [place] [address], [place] [address] Dec, [facility] [address] [id number] [address] [place] [address], [place] [address] Dec, [facility] [address] [id number] [address] [place] [address], [place] [address] Dec, [facility] [address] [id number] [address] [place] [address], [place] [address] Dec, [facility] [address] [id number] [address] [place] [address], [place] [address] Dec, [facility] [address] [id number] [address] [place] [address], [place] [address] Dec, [facility] [address] [id number] [address] [place] [address], [place] [address] Dec, [facility] [address] [id number] [address] [place] [address], [place] [address] Dec, [facility] [address] [id number] [address] [place] [address], [place] [address] Dec, [facility] [address] [id number] [address] [place] [address] [address] 08 Dec, 2013 [facility] [address] [id number] [address] [place] [address], [place] [address] 08 Dec, 2013 [facility] [address] [id number] [address] [place] [address], [place] [address] Dec, [facility] [address] [id number] [address] [place] [address], [place] [address] Dec, [facility] [address] [id number] [address] [place] [address], [place] [address] Dec, [facility] [address] [id number] [address] [place] [address], [place] [address] Dec, [facility] [address] [id number] [address] [place] [address], [place] [address] Dec, [facility] [address] [id number] [address] [place] [address], [place] [address] Dec, [facility] [address] [id number] [address] [place] [address], [place] [address] Dec, [facility] [address] [id number] [address] [place] [address], [place] [address] Dec, [facility] [address] [id number] [address] [place] [address], [place] [address] Nov, [facility] [address] [id number] [address] [place] [address], [place] [address] Nov, 2013 [facility] [address] [id number] [address] [place] [id number] Nov, 2013 [facility] [address] [id number] [address] [place] [address], [place] [address] 22 Nov, 2013 [facility] [address] [id number] [address] [place] [address], [place] [address] Nov, 2013 [facility] [address] [id number] [address] [place] [address], [place] [address] Nov, 2013 [facility] [address] [id number] [facility] [place] [address] 17 Nov, 2013 [facility] [address] [id number] [address] [place] [address], [place] [address] 17 Nov, 2013 [facility] [address] [id number] [facility] [place] [address] 15 Nov, 2013 [facility] [address] [id number] [address] [place] [address], [place] [address] 15 Nov, 2013 [facility] [address] [id number] [address] [place] [address], [place] [address] 02 Nov, 2013 [facility] [address] [id number] [address] [place] [address], [place] [address] Nov, 2013 [facility] [address] [id number] [address] [place] [address], [place] [address] Nov, 2013 [facility] [address] [id number] [address] [place] [address], [place] [address] Nov, 2013 [facility] [address] [id number] [address] [place] [address], [place] [address] Oct, [facility] [address] [id number] [address] [place] [address], [place] [address] Oct, [facility] [address] [id number] [address] [place] [address], [place] [address] Oct, [facility] [address] [id number] [address] [place] [address], [place] [address] Oct, [facility] [address] [id number] [address] [place] [address], [place] [address] Oct, [facility] [address] [id number] [address] [place] [address], [place] [address] Oct, [facility] [address] [id number] [address] [place] [address], [place] [address] Oct, [facility] [address] [id number] [address] [place] [address], [place] [address] Oct, [facility] [address] [id number] [address] [place] [address], [place] [address] Sep, [facility] [address] [id number] [address] [place] [address], [place] [address] Sep, [facility] [address] [id number] [address] [place] [address], [place] [address] Sep, [facility] [address] [id number] [address] [place] [address], [place] [address] Sep, [facility] [address] [id number] [address] [place] [address], [place] [address] Sep, [facility] [address] [id number] [address] [place] [address], [place] [address] Sep, [facility] [address] [id number] [address] [place] [address], [place] [address] Aug, [facility] [address] [id number] [address] [place] [address], [place] [address] Aug, [facility] [address] [id number] [address] [place] [address], [place] [address] July, [facility] [address] [id number] [address] [place] [address], [place] [address] July, [facility] [address] [id number] [address] [place] [address], [place] [address] July, [facility] [address] [id number] [address] [place] [address], [place] [address] July, [facility] [address] [id number] [address] [place] [address], [place] [address] July, [facility] [address] [id number] [address] [place] [address], [place] [address] July, [facility] [address] [id number] [address] [place] [address], [place] [address] July, [facility] [address] [id number] [address] [place] [address], [place] [address] July, [facility] [address] [id number] [facility] [place] [address] July, [facility] [address] [id number] [address] [place] [address], [place] [address] July, [facility] [address] [id number] [address] [place] [address], [place] [address] July, [facility] [address] [id number] [address] [place] [address], [place] [address] July, [facility] [address] [id number] [address] [place] [address], [place] [address] July, [facility] [address] [id number] [address] [place] [address], [place] [address] July, [facility] [address] [id number] [address] [place] [address], [place] [address] July, [facility] [address] [id number] [address] [place] [address], [place] [address] July, [facility] [address] [id number] [address] [place] [address], [place] [address] July, [facility] [address] [id number] [address] [place] [address], [place] [address] July, [facility] [address] [id number] [address] [place] [address], [place] [address] Jun, [facility] [address] [id number] [address] [place] [address], [place] [address] Jun, [facility] [address] [id number] [address] [place] [address], [place] [address] Jun, [facility] [address] [id number] [address] [place] [address], [place] [address] Jun, [facility] [address] [id number] [address] [place] [address], [place] [address] Jun, [facility] [address] [id number] [facility] [place] [address] 10 Jun, 2013 [facility] [address] [id number] [facility] [place] [address] Jun, [facility] [address] [id number] [facility] [place] [address] Jun, [facility] [address] [id number] [address] [place] [address], [place] [address] Jun, [facility] [address] [id number] [facility] [place] [address] Jun, [facility] [address] [id number] [address] [place] [address], [place] [address] Jun, [facility] [address] [id number] [address] [place] [address], [place] [address] Jun, [facility] [address] [id number] [address] [place] [address], [place] [address] May, [facility] [address] [id number] [address] [place] [address], [place] [address] May, [facility] [address] [id number] [address] [place] [address], [place] [address] 25 May, 2013 [facility] [address] [id number] [address] [place] [address], [place] [address] May, [facility] [address] [id number] [address] [place] [address], [place] [address] May, [facility] [address] [id number] [address] [place] [address], [place] [address] 06 May, 2013 [facility] [address] [id number] [address] [place] [address], [place] [address] 05 May, 2013 [facility] [address] [id number] [address] [place] [address], [place] [address] 05 May, 2013 [facility] [address] [id number] [address] [place] [address], [place] [address] May, [facility] [address] [id number] [address] [place] [address], [place] [address] May, [facility] [address] [id number] [address] [place] [address], [place] [address] Apr, [facility] [address] [id number] [address] [place] [address], [place] [address] Apr, [facility] [address] [id number] [address] [place] [address], [place] [address] Apr, [facility] [address] [id number] [address] [place] [address], [place] [address] Apr, [facility] [address] [id number] [address] [place] [address], [place] [address] Apr, [facility] [address] [id number] [address] [place] [address], [place] [address] Apr, [facility] [address] [id number] [address] [place] [address], [place] [address] Apr, [facility] [address] [id number] [address] [place] [address], [place] [address] Apr, [facility] [address] [id number] [address] [place] [address], [place] [address] Apr, [facility] [address] [id number] [address] [place] [address], [place] [address] Apr, [facility] [address] [id number] [address] [place] [address], [place] [address] Apr, [facility] [address] [id number] [address] [place] [address], [place] [address] Apr, [facility] [address] [id number] [address] [place] [address], [place] [address] Apr, [facility] [address] [id number] [address] [place] [address], [place] [address] Apr, [facility] [address] [id number] [address] [place] [address], [place] [address] Mar, [facility] [address] [id number] [address] [place] [address], [place] [address] Mar, [facility] [address] [id number] [address] [place] [address], [place] [address] Mar, [facility] [address] [id number] [address] [place] [address], [place] [address] Mar, [facility] [address] [id number] [address] [place] [address], [place] [address] Mar, [facility] [address] [id number] [address] [place] [address], [place] [address] Mar, [facility] [address] [id number] [address] [place] [address], [place] [address] Mar, [facility] [address] [id number] [address] [place] [address], [place] [address] Mar, [facility] [address] [id number] [address] [place] [address], [place] [address] Mar, [facility] [address] [id number] [address] [place] [address], [place] [address] Mar, [facility] [address] [id number] [address] [place] [address], [place] [address] Mar, [facility] [address] [id number] [address] [place] [address], [place] [address] Mar, [facility] [address] [id number] [address] [place] [address], [place] [address] Feb, [facility] [address] [id number] [address] [place] [address], [place] [address] Feb, [facility] [address] [id number] [address] [place] [address], [place] [address] Feb, [facility] [address] [id number] [address] [place] [address], [place] [address] Feb, [facility] [address] [id number] [address] [place] [address], [place] [address] Feb, [facility] [address] [id number] [address] [place] [address], [place] [address] Feb, [facility] [address] [id number] [address] [place] [address], [place] [address] Feb, [facility] [address] [id number] [address] [place] [address], [place] [address] Feb, [facility] [address] [id number] [address] [place] [address], [place] [address] Feb, [facility] [address] [id number] [address] [place] [address], [place] [address] Feb, [facility] [address] [id number] [address] [place] [address], [place] [address] Feb, [facility] [address] [id number] [address] [place] [address], [place] [address] Jan, [facility] [address] [id number] [address] [place] [address], [place] [address] Jan, [facility] [address] [id number] [address] [place] [address], [place] [address] Jan, [facility] [address] [id number] [address] [place] [address] Jan, [facility] [address] [id number] [address] [place] [address] Jan, [facility] [address] [id number] [address] [place] [address], [place] [address] Jan, [facility] [address] [id number] [address] [place] [address] Jan, [facility] [address] [id number] [address] [place] [address], [place] [address] Dec, [facility] [address] [id number] [address] [place] [address], [place] [address] 17 Dec, 2012 [facility] [address] [id number] [address] [place] [address], [place] [address] 10 Dec, 2012 [facility] [address] [id number] [address] [place] [address], [place] [address] 10 Dec, 2012 [facility] [address] [id number] [address] [place] [address], [place] [address] 04 Dec, 2012 [facility] [address] [id number] [address] [place] [address], [place] [address] Nov, [facility] [address] [id number] [address] [place] [address], [place] [address] Oct, [facility] [address] [id number] [address] [place] [address], [place] [address] Oct, [facility] [address] [id number] [address] [place] [address], [place] [address] Oct, [facility] [address] [id number] [address] [place] [address], [place] [address] Oct, [facility] [address] [id number] [address] [place] [address], [place] [address] Oct, [facility] [address] [id number] 22 [place] [address], [place] [address] Sep, [facility] [address] [id number] [address] [place] [address], [place] [address] Sep, [facility] [address] [id number] [address] [place] [address], [place] [address] Sep, [facility] [address] [id number] [address] [place] [address], [place] [address] Sep, [facility] [address] [id number] [address] [place] [address], [place] [address] Aug, [facility] [address] [id number] [address] [place] [address], [place] [address] Aug, [facility] [address] [id number] [address] [place] [address], [place] [address] Aug, [facility] [address] [id number] [address] [place] [address], [place] [address] Aug, [facility] [address] [id number] [address] [place] [address], [place] [address] Aug, [facility] [address] [id number] [address] [place] [address], [place] [address] July, [facility] [address] [id number] [address] [place] [address], [place] [address] July, [facility] [address] [id number] [address] [place] [address], [place] [address] July, [facility] [address] [id number] [address] [place] [address], [place] [address] July, [facility] [address] [id number] [address] [place] [address], [place] [address] Jun, [facility] [address] [id number] [address] [place] [address], [place] [address] Jun, [facility] [address] [id number] [address] [place] [address], [place] [address] May, [facility] [address] [id number] [address] [place] [address], [place] [address] May, [facility] [address] [id number] [address] [place] [address], [place] [address] Apr, [facility] [address] [id number] [address] [place] [address], [place] [address] Apr, [facility] [address] [id number] [address] [place] [address], [place] [address] Mar, [facility] [address] [id number] [address] [place] [address], [place] [address] Mar, [facility] [address] [id number] [address] [place] [address] Feb, [facility] [address] [id number] [address] [place] [address], [place] [address] Feb, [facility] [address] [id number] [address] [place] [address], [place] [address] Feb, [facility] [address] [id number] [address] [place] [address], [place] [address] Feb, [facility] [address] [id number] [address] [place] [address], [place] [address] Feb, [facility] [address] [id number] [address] [place] [address], [place] [address] Feb, [facility] [address] [id number] [address] [place] [address], [place] [address] Jan, [facility] [address] [id number] [address] [place] [address], [place] [address] Jan, [facility] [address] [id number] [address] [place] [address], [place] [address] Jan, [facility] [address] [id number] [address] [place] [address], [place] [address] Jan, [facility] [address] [id number] [address] [place] [address], [place] [address] Dec, [facility] [address] [id number] [address] [place] [address], [place] [address] 15 Dec, 2011 [facility] [address] [id number] [address] [place] [address], [place] [address] 18 Nov, 2011 [facility] [address] [id number] [address] [place] [address], [place] [address] 12 Nov, 2011 [facility] [address] [id number] [address] [place] [address], [place] [address] 07 Nov, 2011 [facility] [address] [id number] [address] [place] [address], [place] [address] Oct, [facility] [address] [id number] [address] [place] [address], [place] [address] Sep, [facility] [address] [id number] [address] [place] [address], [place] [address] Aug, [facility] [address] [id number] [address] [place] [address], [place] [address] July, [facility] [address] [id number] [address] [place] [address], [place] [address] July, [facility] [address] [id number] [address] [place] [address], [place] [address] July, [facility] [address] [id number] [address] [place] [address], [place] [address] July, [facility] [address] [id number] [address] [place] [address], [place] [address] July, [facility] [address] [id number] [address] [place] [address], [place] [address] Jun, [facility] [address] [id number] [address] [place] [address], [place] [address] May, [facility] [address] [id number] [address] [place] [address], [place] [address] May, [facility] [address] [id number] [address] [place] [address], [place] [address] May, [facility] [address] [id number] [address] [place] [address], [place] [address] Apr, [facility] [address] [id number] [address] [place] [address], [place] [address] Apr, [facility] [address] [id number] [address] [place] [address], [place] [address] Mar, [facility] [address] [id number] [address] [place] [address], [place] [address] Feb, [facility] [address] [id number] [address] [place] [address], [place] [address] 16 Feb, 2011 [facility] [address] [id number] [address] [place] [address], [place] [address] 16 Feb, 2011 [facility] [address] [id number] [address] [place] [address], [place] [address] 15 Feb, 2011 [facility] [address] [id number] [address] [place] [address], [place] [address] 14 Feb, 2011 [facility] [address] [id number] [address] [place] [address], [place] [address] 14 Feb, 2011 [facility] [address] [id number] [address] [place] [address], [place] [address] 14 Feb, 2011 [facility] [address] [id number] [address] [place] [address], [place] [address] 29 Jan, 2011 [facility] [address] [id number] [address] [place] [address], [place] [address] 19 Jan, 2011 [facility] [address] [id number] [address] [place] [address], [place] [address] 19 Jan, 2011 [facility] [address] [id number] [address] [place] [address], [place] [address] 15 Aug, 2010 [facility] [address] [id number] [address] [place] [address], [place] [address] 30 Feb, 2010 [facility] [address] [id number] [address] [place] [address], [place] [address] 21 Feb, 2010 [facility] [address] [id number] [address] [place] [address] 02 Feb, 2010 [facility] [address] [id number] [address] [place] [address], [place] [address] 28 Dec, 2009 [facility] [address] [id number] [address] [place] [address], [place] [address] 13 Jun, 2009 [facility] [address] [id number] [address] [place] [address], [place] [address] 26 Dec, 2008 [facility] [address] [id number] [address] [place] [address] 16 Sep, 2007 IMMUNIZATIONS No Known Immunizations SOCIAL HISTORY Never Assessed REASON FOR VISIT PLAN OF CARE VITAL SIGNS MEDICATIONS Unknown Medications RESULTS No Results PROCEDURES Procedure Date Ordered Result Body Site COMPREHENSIVE CARE MANAGEMENT HAP - OCK Apr 21, 2014 INSTRUCTIONS MEDICATIONS ADMINISTERED No Known Medications MEDICAL [...] History Meniscus Repair Left Knee Hospitalization History [facility] Mental Breakdown 05/22 15 Hospitalization History Overdose [facility] 07/17/15 Hospitalization History Overdose 01/2018
--- OUTSIDE RECORDS SUMMARY | 2019-07-15 19:42 | XMS REPORT ---
Author Author Shan Flores Organization [facility] Address Unknown Care Team Providers Care Senior Sql Dba Name Role Phone ZAN Flores Unavailable PROBLEMS Type Condition ICD9-CM Code [id number] Code Onset Dates Condition S tatus SNOMED Code Problem Low hemoglobin D64.9 Active 12100 7008 Problem Long-term use of high-risk medication Z79.899 Active 466467540 Problem Pain in left knee M25.562 Active 30 362518 Problem Chronic fatigue R53.82 Active 5270 2003 Problem Seasonal allergic rhinitis due to pollen J30.1 Active 36451042 Problem Bipolar disorder with depression F31.30 Active 27032435 Problem Routine gynecological examination Z01.419 Active 314956270 Problem High risk medication use Z79.899 Activ e 716501211 Problem Unspecified mood [affective] disorder F39 Active 121680292 Problem Iron deficiency anemia due to chronic blood loss D 50.0 Active 71714625 Problem Attention deficit hyperactivity disorder (ADHD), combi cosmo type F90.2 Active 080660944 Problem Bipolar disorder, unspecified F31.9 Active 57330562 Problem Generalized anxiety disorder F41.1 A ctive 09942753 Problem Amenorrhea N91.2 Active 16967425 Problem Schizoaffective disorder F25.9 Activ e 21699254 Problem Well woman exam Z01.419 Active 3103 69082 Problem Schizoaffective disorder, bipolar type F25.0 Active 83278537 Problem care, first in first trimester Z34.01 Active 233708192 Problem Vitamin D deficiency E55.9 Active 29061434 Problem Anxiety F41.9 Active 10081333 Problem Pain in right knee M25.561 Active 8 3990071 Problem General counseling and advice on female contraception Z30.09 Active 90442953 Problem Social phobia F40.10 Active 635766 02 Problem Relationship problem with family member Z63.8 Active 517052225 Problem Chronic post-traumatic stress disorder (PTSD) F43. 12 Active 471349701 Problem Positive test Z32.01 Active 649964849 ALLERGIES No Information ENCOUNTERS Encounter Location Date Diagnosis [facility] [address] [facility] [id number] [address] [place] [phone] July, [facility] [address] [facility] [id number] [address] [place] [phone] July, [facility] [address] [facility] [id number] [address] [place] [phone] July, [facility] [address] [facility] [id number] [address] [place] [phone] Jun, [facility] [address] [facility] [id number] [address] [place] [phone] Jun, [facility] [address] [facility] [id number] [address] [place] [phone] Jun, care in third trime ster Z34.93 and 37 weeks gestation of Z3A.37 [facility] [address] [facility] [id number] [address] [place] [phone] Jun, [facility] [address] [facility] [id number] [address] [place] [phone] Jun, Third trimester Z3 4.93 and 36 weeks gestation of Z3A.36 [facility] [address] [facility] [id number] [address] [place] [phone] Jun, [facility] [address] [facility] [id number] [address] [place] [phone] Jun, Third trimester Z3 4.93 ; 35 weeks gestation of Z3A.35 and Palpitations R00.2 [facility] [address] [facility] [id number] [address] [place] [phone] Jun, [facility] [address] [facility] [id number] [address] [place] [phone] May, [facility] [address] [place] [address] [phone] 26 May, 2019 Third trimester Z3 4.93 ; 33 weeks gestation of Z3A.33 ; Anxiety F41.9 and Encounter for immunization Z23 [facility] [address] [id number] 25 May, 2019 [facility] [address] [phone] 24 May, 2019 [facility] [address] [id number] 20 May, 2019 [place] [address] [phone] 17 May, 2019 [place] [address] [id number] 16 May, 2019 [place] [address] [address] 16 May, 2019 [place] [address] [id number] 12 May, 2019 [place] [address] [address] 10 May, 2019 [place] [address] [address] 10 May, 2019 care, first pregnan cy in third trimester Z34.03 ; 31 weeks gestation of Z3A.31 and Decreased movements in third trimester, single or unspecified fetus O36.8130 [place] [address] [place] [id number] [address] [place] [phone] 06 May, 2019 Fever and chills R50.9 and F mel-like symptoms R68.89 [place] [address] [place] [id number] [address] [place] [phone] 11 Apr, 2019 [facility] [address] [id number] 11 Apr, 2019 Second trimester Z 34.92 and 27 weeks gestation of Z3A.27 [facility] [address] [id number] [address] [place] [phone] 15 Mar, 2019 Acute non-recurrent maxillar y sinusitis J01.00 and Cough R05 [facility] [address] [id number] [address] [place] [phone] 15 Mar, 2019 [facility] [address] [id number] [address] [place] [phone] Mar, [facility] [address] [id number] [address] [place] [phone] Mar, [place] [address] [id number] [address] [place] [phone] Mar, care in second trim gabo Z34.92 and 23 weeks gestation of Z3A.23 [place] [address] [id number] [address] [place] [phone] Feb, care in second trim gabo Z34.92 and 19 weeks gestation of Z3A.19 [place] [address] [id number] [address] [place] [phone] Feb, [place] [address] [facility] [id number] [address] [place] [phone] Feb, care in second trim gabo Z34.92 ; 19 weeks gestation of Z3A.19 and Encounter for immunization Z23 [place] [address] [id number] [address] [place] [phone] Feb, Dental examination Z01.20 [place] [address] [id number] [address] [place] [phone] Feb, [place] [address] [id number] [address] [place] [phone] Jan, [place] [address] [facility] [id number] [address] [place] [phone] Jan, care in second trim gabo Z34.92 and 15 weeks gestation of Z3A.15 [facility] [address] [id number] [address] [place] [phone] Dec, First trimester Z3 4.91 ; 11 weeks gestation of Z3A.11 and Nausea/vomiting in O21.9 [facility] [address] [id number] [address] [place] [phone] Dec, [facility] [address] [facility] [id number] [address] [place] [phone] Dec, [facility] [address] [id number] [address] [place] [phone] 14 Dec, 2018 care, first pregnan cy in first trimester Z34.01 [place] [address] [facility] [id number] [address] [place] [phone] Dec, [place] [address] [facility] [id number] [address] [place] [phone] Dec, Chronic post-traumatic stres s disorder (PTSD) F43.12 ; Relationship problem with family member Z63.8 and Positive test Z32.01 [place] [address] [facility] [id number] [address] [place] [phone] Nov, [facility] [address] [facility] [id number] [address] [place] [phone] Nov, care, first pregnan cy in first trimester Z34.01 [facility] [address] [id number] [address] [place] [phone] Nov, [facility] [address] [facility] [id number] [address] [place] [phone] Nov, care, first pregnan cy in first trimester Z34.01 and 7 weeks gestation of Z3A.01 [facility] [address] [id number] [address] [place] [phone] 24 Nov, 2018 [facility] [address] [facility] [id number] [address] [place] [phone] Nov, [place] [address] [id number] [address] [place] [phone] 18 Nov, 2018 [place] [address] [id number] [address] [place] [phone] Nov, [place] [address] [id number] [address] [place] [phone] Nov, [place] [address] [id number] [address] [place] [phone] Nov, Positive test Z32. 01 ; Well woman exam with routine gynecological exam Z01.419 ; Amenorrhea N91.2 ; , unspecified gestational age Z34.90 ; Encounter for smoking cessation counseling Z71.6 ; Acute vaginitis N76.0 and Other specified bacterial agents as the cause of diseases classified elsewhere B96.89 [place] [address] [id number] [address] [place] [phone] Nov, [place] [address] [id number] [address] [place] [phone] Nov, [place] [address] [id number] [address] [place] [phone] Oct, Bipolar disorder with depres arlen F31.30 [place] [address] [id number] [address] [place] [phone] Oct, Bipolar disorder with depres arlen F31.30 ; Chronic post-traumatic stress disorder (PTSD) F43.12 and Relationship problem with family member Z63.8 [place] [address] [id number] [address] [place] [phone] Aug, Bipolar disorder with depres arlen F31.30 ; Chronic post-traumatic stress disorder (PTSD) F43.12 and Relationship problem with family member Z63.8 [place] [address] [id number] [address] [place] [phone] Mar, Schizoaffective disorder, bi polar type F25.0 ; Social phobia F40.10 ; Chronic post-traumatic stress disorder (PTSD) F43.12 and Relationship problem with family member Z63.8 [facility] [place] [id number] [address] Oct, Pain in right shoulder M25.511 and Bipol ar disorder with depression F31.30 [facility] [address] [facility] [id number] [address] [place] [phone] July, [facility] [address] [facility] [id number] [address] [place] [phone] July, [facility] [address] [facility] [id number] [address] [place] [phone] July, Well woman exam Z01.419 and Vaginal discharge N89.8 [facility] [address] [facility] [id number] [address] [place] [phone] Jun, [facility] [address] [facility] [id number] [address] [place] [phone] Mar, [facility] [address] [facility] [id number] [address] [place] [phone] May, Bipolar disorder, unspecifie d F31.9 [place] [address] [facility] [id number] [address] [place] [phone] May, Bipolar disorder, unspecifie d F31.9 ; Attention deficit hyperactivity disorder (ADHD), combined type F90.2 and Schizoaffective disorder F25.9 [facility] [address] [facility] [id number] [address] [place] [phone] May, Bipolar disorder with depres arlen F31.30 [facility] [address] [facility] [id number] [address] [place] [phone] May, Bipolar disorder, unspecifie d F31.9 ; Attention deficit hyperactivity disorder (ADHD), combined type F90.2 and Schizoaffective disorder F25.9 [facility] [address] [facility] [id number] [address] [place] [phone] Apr, Seasonal allergic rhinitis d ue to pollen J30.1 [facility] [address] [place] [id number] [address] [place] [phone] Apr, [place] [address] [place] [id number] [address] [place] [phone] Mar, Attention deficit disorder ( ADD) without 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 ; Bipolar disorder with depression F31.30 and Generalized anxiety disorder F41.1 [place] [address] [place] [id number] [address] [place] [phone] Mar, [place] [address] [place] [id number] [address] [place] [phone] Feb, Unspecified mood [affective] disorder F39 [place] [address] [place] [id number] [place] [phone] Feb, Unspecified mood [affective] disorder F39 [place] [address] [place] [id number] [address] [place] [phone] Feb, [place] [address] [place] [id number] [address] [place] [phone] Jan, Amenorrhea N91.2 ; Vitamin D deficiency E55.9 and Iron deficiency anemia due to chronic blood loss D50.0 [place] [address] [place] [id number] [address] [place] [phone] Jan, Encounter for test Z32.00 [place] [address] [place] [id number] [address] [place] [phone] Dec, Unspecified mood [affective] disorder F39 ; Bipolar disorder, unspecified F31.9 and Attention deficit hyperactivity disorder (ADHD), combined type F90.2 [place] [address] [place] [id number] [address] [place] [phone] Nov, [place] [address] [place] [id number] [address] [place] [phone] Nov, [place] [address] [place] [id number] [address] [place] [phone] Nov, [facility] [address] [id number] [address] [place] [phone] Nov, [facility] [address] [id number] [address] [place] [phone] Nov, [facility] [address] [id number] [address] [place] [phone] Nov, Dysuria R30.0 [facility] [address] [id number] [address] [place] [phone] Oct, [facility] [address] [id number] [address] [place] [phone] Oct, [facility] [address] [id number] [address] [place] [phone] Sep, [facility] [address] [facility] [id number] [address] [place] [phone] Sep, Bipolar disorder, unspecifie d F31.9 and Schizoaffective disorder F25.9 [facility] [address] [id number] [address] [place] [phone] Sep, [facility] [address] [facility] [id number] [address] [place] [phone] Aug, Unspecified mood [affective] disorder F39 [facility] [address] [facility] [id number] [address] [place] [phone] Aug, [facility] [address] [facility] [id number] [address] [place] [phone] Aug, General counseling and advic e on female contraception Z30.09 and Iron deficiency anemia due to chronic blood loss D50.0 [facility] [address] [facility] [id number] [address] [place] [phone] July, Routine gynecological examin ation Z01.419 ; General counseling and advice on female contraception Z30.09 ; High risk medication use Z79.899 ; Other specified bacterial agents as the cause of diseases classified elsewhere B96.89 and Acute vaginitis N76.0 [place] [address] [facility] [id number] [address] [place] [phone] July, Attention deficit hyperactiv ity disorder (ADHD), combined type F90.2 ; Bipolar disorder, unspecified F31.9 and Schizoaffective disorder F25.9 [place] [address] [facility] [id number] [address] [place] [phone] July, Unspecified mood [affective] disorder F39 [place] [address] [id number] [address] [place] [phone] July, [place] [address] [place] [id number] [address] [place] [phone] July, [place] [address] [facility] [id number] [address] [place] [phone] July, Low hemoglobin D64.9 [place] [address] [place] [id number] [address] [place] [phone] July, [place] [address] [place] [id number] [address] [place] [phone] July, General counselling and advi ce on contraception Z30.09 ; Pain in left knee M25.562 ; Pain in right knee M25.561 ; Chronic fatigue R53.82 and Vitamin D deficiency E55.9 [place] [address] [facility] [id number] [address] [place] [phone] Jun, Fatigue R53.83 [place] [address] [facility] [id number] [address] [place] [phone] Jun, Fatigue R53.83 ; Low hemoglo bin D64.9 ; Long-term use of high-risk medication Z79.899 ; Sore throat J02.9 and Fever, low grade R50.9 [place] [address] [facility] [id number] [address] [place] [phone] Jun, Unspecified mood [affective] disorder F39 [place] [address] [place] [id number] [address] [place] [phone] May, Unspecified mood [affective] disorder F39 [facility] [address] [id number] [address] [place] [phone] May, [facility] [address] [id number] [address] [place] [phone] May, Attention deficit hyperactiv ity disorder (ADHD), combined type F90.2 ; Bipolar disorder, unspecified F31.9 and Schizoaffective disorder F25.9 [facility] [address] [id number] [address] [place] [phone] May, [facility] [address] [id number] [address] [place] [phone] Apr, [facility] [address] [id number] [address] [place] [phone] Apr, [facility] [address] [id number] [address] [place] [phone] Apr, [facility] [address] [id number] [address] [place] [phone] Apr, [facility] [address] [id number] [place] [id number] Apr, Ingestion of unknown drug T5 0.901A [facility] [address] [id number] [address] [place] [phone] Apr, [facility] [address] [id number] [address] [place] [phone] 17 Apr, 2015 Unspecified mood [affective] disorder F39 [facility] [address] [id number] [address] [place] [phone] 16 Apr, 2015 Unspecified mood [affective] disorder F39 [facility] [address] [id number] [address] [place] [phone] Apr, Unspecified mood [affective] disorder F39 [facility] [address] [id number] [address] [place] [phone] Apr, 2016 intermediate use of drug Z79.89 9 ; Attention deficit hyperactivity disorder (ADHD), combined type F90.2 ; Bipolar disorder, unspecified F31.9 and Schizoaffective disorder F25.9 [facility] [address] [id number] [address] [place] [phone] Mar, Unspecified mood [affective] disorder F39 [facility] [address] [id number] [place] [id number] Mar, Menstrual period late N91.0 and High risk sexual behavior Z72.51 [facility] [address] [id number] [address] [place] [phone] Mar, Unspecified mood [affective] disorder 9 [facility] [address] [id number] [address] [place] [phone] Mar, Unspecified mood [affective] disorder F39 [facility] [address] [id number] [address] [place] [phone] Mar, Unspecified mood [affective] disorder 9 [facility] [address] [id number] [address] [place] [phone] Feb, [facility] [address] [id number] [address] [place] [phone] Feb, Attention deficit hyperactiv ity disorder (ADHD), combined type F90.2 ; Episodic mood disorder 296.90 and Bipolar disorder, unspecified F31.9 [facility] [address] [id number] [address] [place] [phone] Feb, Major depressive disorder, r ecurrent, moderate F33.1 [facility] [address] [id number] [address] [place] [phone] Feb, Unspecified mood [affective] disorder F39 [facility] [address] [id number] [address] [place] [id number] Feb, Unspecified mood [affective] disorder F39 [facility] [address] [id number] [address] [place] [phone] Feb, [facility] [address] [id number] [address] [place] [phone] Feb, Unspecified mood [affective] disorder F39 [facility] [address] [id number] [address] [place] [phone] Feb, Bipolar disorder, unspecifie d F31.9 [facility] [address] [id number] [address] [place] [id number] Jan, [facility] [address] [id number] [address] [place] [id number] Jan, Unspecified mood [affective] disorder F39 [facility] [address] [id number] [address] [place] [phone] Jan, Unspecified mood [affective] disorder F39 [facility] [address] [id number] [address] [place] [phone] Jan, Bipolar disorder, unspecifie d F31.9 [facility] [address] [id number] [address] [place] [phone] Jan, Attention deficit hyperactiv ity disorder (ADHD), combined type F90.2 and Bipolar disorder, unspecified F31.9 [facility] [address] [id number] [address] [place] [phone] Jan, [facility] [address] [id number] [address] [place] [phone] Jan, [facility] [address] [id number] [address] [place] [phone] Jan, Unspecified mood [affective] disorder F39 [facility] [address] [id number] [address] [place] [phone] Dec, Unspecified mood [affective] disorder F39 [facility] [address] [facility] [id number] [address] [place] [address] Dec, Unspecified mood [affective] disorder F39 [facility] [address] [facility] [id number] [address] [place] [address] Dec, Unspecified mood [affective] disorder F39 [facility] [address] [facility] [id number] [address] [place] [address] Dec, [facility] [address] [facility] [id number] [address] [place] [address] Dec, Viral upper respiratory trac t infection J06.9 ; Encounter for immunization Z23 and Smoker F17.200 [facility] [address] [facility] [id number] [address] [place] [address] Dec, [facility] [address] [facility] [id number] [address] [place] [address] Dec, Schizoaffective disorder F25 .9 and Attention deficit hyperactivity disorder (ADHD), combined type F90.2 [facility] [address] [facility] [id number] [address] [place] [address] Nov, [facility] [address] [facility] [id number] [address] [place] [address] Nov, Unspecified mood [affective] disorder F39 [facility] [address] [facility] [id number] [address] [place] [address] Nov, Schizoaffective disorder, un specified 295.70 ; Generalized anxiety disorder 300.02 and Attention deficit disorder of childhood with hyperactivity 314.01 [facility] [address] [facility] [id number] [address] [place] [address] Oct, [facility] [address] [facility] [id number] [address] [place] [address] Oct, [facility] [address] [facility] [id number] [address] [place] [address] Oct, [facility] [address] [facility] [id number] [address] [place] [address] Oct, Affective disorder 296.90 [facility] [address] [id number] [address] [place] [address] Oct, Screen for STD (sexually tra nsmitted disease) V74.5 and Encounter for counseling regarding contraception V25.09 [facility] [address] [id number] [address] [place] [address] Sep, [facility] [address] [id number] [address] [place] [address] Sep, [facility] [address] [id number] [address] [place] [address] Sep, Episodic mood disorder 296.9 0 [facility] [address] [id number] [address] [place] [address] Sep, [facility] [address] [id number] [address] [place] [address] Sep, [facility] [address] [id number] [address] [place] [address] Aug, [facility] [address] [id number] [address] [place] [address] Aug, [facility] [address] [id number] [address] [place] [address] Aug, [facility] [address] [id number] [address] [place] [address] Aug, Episodic mood disorder 296.9 0 [facility] [address] [id number] [address] [place] [address] Aug, [facility] [address] [facility] [id number] [address] [place] [address] July, Allergic rhinitis 477.9 [facility] [address] [id number] [address] [place] [address] July, Schizoaffective disorder, un specified 295.70 [facility] [address] [id number] [address] [place] [address], [place] [address] July, [facility] [address] [id number] [address] [place] [address], [place] [address] 14 Jun, 2014 [facility] [address] [id number] [address] [place] [address], [place] [address] 13 Jun, 2014 [facility] [address] [id number] [address] [place] [address], [place] [address] 24 May, 2014 [facility] [address] [id number] [address] [place] [address], [place] [address] 24 May, 2014 [facility] [address] [id number] [address] [place] [address], [place] [address] 18 May, 2014 [facility] [address] [id number] [address] [place] [address], [place] [address] 18 May, 2014 [facility] [address] [id number] [address] [place] [address], [place] [address] 20 Apr, 2014 [facility] [address] [id number] [address] [place] [address], [place] [address] 20 Apr, 2014 [facility] [address] [id number] [address] [place] [address], [place] [address] Apr, [facility] [address] [id number] [address] [place] [address], [place] [address] Apr, [facility] [address] [id number] [address] [place] [address], [place] [address] 18 Apr, 2014 [facility] [address] [id number] [address] [place] [address], [place] [address] 18 Apr, 2014 [facility] [address] [id number] [address] [place] [address], [place] [address] Apr, [facility] [address] [id number] [address] [place] [address], [place] [address] Apr, [facility] [address] [id number] [address] [place] [address], [place] [address] Mar, [facility] [address] [id number] [address] [place] [address], [place] [address] Mar, [facility] [address] [id number] [address] [place] [address], [place] [address] Mar, [facility] [address] [id number] [address] [place] [address], [place] [address] Mar, [facility] [address] [id number] [address] [place] [address], [place] [address] Feb, [facility] [address] [id number] [address] [place] [address], [place] [address] Feb, [facility] [address] [id number] [address] [place] [address], [place] [address] Feb, [facility] [address] [id number] [address] [place] [address], [place] [address] Feb, [facility] [address] [id number] [address] [place] [address], [place] [address] Feb, [facility] [address] [id number] [address] [place] [address], [place] [address] Feb, [facility] [address] [id number] [address] [place] [address], [place] [address] Feb, [facility] [address] [id number] [address] [place] [address], [place] [address] Feb, [facility] [address] [id number] [address] [place] [address], [place] [address] Feb, [facility] [address] [id number] [address] [place] [address], [place] [address] Feb, [facility] [address] [id number] [address] [place] [address], [place] [address] Feb, [facility] [address] [id number] [address] [place] [address], [place] [address] Jan, [facility] [address] [id number] [address] [place] [address], [place] [address] Jan, [facility] [address] [id number] [address] [place] [address], [place] [address] Dec, [facility] [address] [id number] [address] [place] [address], [place] [address] Dec, [facility] [address] [id number] [address] [place] [address], [place] [address] Dec, [facility] [address] [id number] [address] [place] [address], [place] [address] Dec, [facility] [address] [id number] [address] [place] [address], [place] [address] Dec, [facility] [address] [id number] [address] [place] [address], [place] [address] Dec, [facility] [address] [id number] [address] [place] [address], [place] [address] Dec, [facility] [address] [id number] [address] [place] [address], [place] [address] Dec, [facility] [address] [id number] [address] [place] [address], [place] [address] Dec, [facility] [address] [id number] [address] [place] [address], [place] [address] Dec, [facility] [address] [id number] [address] [place] [address], [place] [address] Dec, [facility] [address] [id number] [address] [place] [address], [place] [address] Dec, [facility] [address] [id number] [address] [place] [address], [place] [address] Dec, [facility] [address] [id number] [address] [place] [address], [place] [address] Dec, [facility] [address] [id number] [address] [place] [address], [place] [address] Dec, [facility] [address] [id number] [address] [place] [address], [place] [address] 08 Dec, 2013 [facility] [address] [id number] [address] [place] [address], [place] [address] Dec, [facility] [address] [id number] [address] [place] [address], [place] [address] Dec, 2013 [facility] [address] [id number] [address] [place] [address], [place] [address] Dec, 2013 [facility] [address] [id number] [address] [place] [address], [place] [address] Dec, 2013 [facility] [address] [id number] [address] [place] [address], [place] [address] Dec, [facility] [address] [id number] [address] [place] [address], [place] [address] Dec, [facility] [address] [id number] [address] [place] [address], [place] [address] Dec, [facility] [address] [id number] [address] [place] [address], [place] [address] Dec, [facility] [address] [id number] [address] [place] [address], [place] [address] Nov, 2013 [facility] [address] [id number] [address] [place] [address], [place] [address] Nov, 2013 [facility] [address] [id number] [address] [place] [address], [place] [address] 22 Nov, 2013 [facility] [address] [id number] [address] [place] [address], [place] [address] 22 Nov, 2013 [facility] [address] [id number] [address] [place] [address], [place] [address] Nov, 2013 [facility] [address] [id number] [address] [place] [address], [place] [address] Nov, 2013 [facility] [address] [id number] [address] [place] [address], [place] [address] 17 Nov, 2013 [facility] [address] [id number] [facility] [place] [address] 17 Nov, 2013 [facility] [address] [id number] [address] [place] [address], [place] [address] 15 Nov, 2013 [facility] [address] [id number] [address] [place] [address], [place] [address] 15 Nov, 2013 [facility] [address] [id number] [address] [place] [address], [place] [address] Nov, 2013 [facility] [address] [id number] [address] [place] [address], [place] [address] Nov, 2013 [facility] [address] [id number] [address] [place] [address], [place] [address] Nov, 2013 [facility] [address] [id number] [address] [place] [address], [place] [address] Nov, 2013 [facility] [address] [id number] [address] [place] [address], [place] [address] Oct, [facility] [address] [id number] [address] [place] [address], [place] [address] Oct, [facility] [address] [id number] [address] [place] [address], [place] [address] Oct, [facility] [address] [id number] [address] [place] [address], [place] [address] Oct, [facility] [address] [id number] [address] [place] [address], [place] [address] Oct, [facility] [address] [id number] [address] [place] [address], [place] [address] Oct, [facility] [address] [id number] [address] [place] [address], [place] [address] Oct, [facility] [address] [id number] [address] [place] [address], [place] [address] Oct, [facility] [address] [id number] [facility] [place] [address] Sep, [facility] [address] [id number] [address] [place] [address], [place] [address] Sep, [facility] [address] [id number] [address] [place] [address], [place] [address] Sep, [facility] [address] [id number] [address] [place] [address], [place] [address] Sep, [facility] [address] [id number] [address] [place] [address], [place] [address] Sep, [facility] [address] [id number] [address] [place] [address], [place] [address] Sep, [facility] [address] [id number] [address] [place] [address], [place] [address] Aug, [facility] [address] [id number] [address] [place] [address], [place] [address] Aug, [facility] [address] [id number] [address] [place] [address], [place] [address] July, [facility] [address] [id number] [address] [place] [address], [place] [address] July, [facility] [address] [id number] [address] [place] [address], [place] [address] July, [facility] [address] [id number] [address] [place] [address], [place] [address] July, [facility] [address] [id number] [address] [place] [address], [place] [address] July, [facility] [address] [id number] [address] [place] [address], [place] [address] July, [facility] [address] [id number] [address] [place] [address], [place] [address] July, [facility] [address] [id number] [address] [place] [address], [place] [address] July, [facility] [address] [id number] [address] [place] [address], [place] [address] July, [facility] [address] [id number] [address] [place] [address], [place] [address] July, [facility] [address] [id number] [address] [place] [address], [place] [address] July, [facility] [address] [id number] [address] [place] [address], [place] [address] July, [facility] [address] [id number] [address] [place] [address], [place] [address] July, [facility] [address] [id number] [address] [place] [address], [place] [address] July, [facility] [address] [id number] [address] [place] [address], [place] [address] July, [facility] [address] [id number] [address] [place] [address], [place] [address] July, [facility] [address] [id number] [address] [place] [address], [place] [address] July, [facility] [address] [id number] [address] [place] [address], [place] [address] July, [facility] [address] [id number] [address] [place] [address], [place] [address] Jun, [facility] [address] [id number] [address] [place] [address], [place] [address] Jun, [facility] [address] [id number] [address] [place] [address], [place] [address] Jun, [facility] [address] [id number] [address] [place] [address], [place] [address] Jun, [facility] [address] [id number] [address] [place] [address], [place] [address] Jun, [facility] [address] [id number] [address] [place] [address], [place] [address] Jun, [facility] [address] [id number] [facility] [place] [address] Jun, [facility] [address] [id number] [address] [place] [address], [place] [address] Jun, [facility] [address] [id number] [address] [place] [address], [place] [address] Jun, [facility] [address] [id number] [address] [place] [address], [place] [address] Jun, [facility] [address] [id number] [address] [place] [address], [place] [address] Jun, [facility] [address] [id number] [address] [place] [address], [place] [address] Jun, [facility] [address] [id number] [address] [place] [address], [place] [address] May, [facility] [address] [id number] [address] [place] [address], [place] [address] May, [facility] [address] [id number] [address] [place] [address], [place] [address] May, [facility] [address] [id number] [address] [place] [address], [place] [address] May, [facility] [address] [id number] [address] [place] [address], [place] [address] May, [facility] [address] [id number] [address] [place] [address], [place] [address] May, [facility] [address] [id number] [address] [place] [address], [place] [address] 05 May, 2013 [facility] [address] [id number] [address] [place] [address], [place] [address] 05 May, 2013 [facility] [address] [id number] [address] [place] [address], [place] [address] May, [facility] [address] [id number] [address] [place] [address], [place] [address] May, [facility] [address] [id number] [address] [place] [address], [place] [address] Apr, [facility] [address] [id number] [address] [place] [address], [place] [address] Apr, [facility] [address] [id number] [address] [place] [address], [place] [address] Apr, [facility] [address] [id number] [address] [place] [address], [place] [address] Apr, [facility] [address] [id number] [address] [place] [address], [place] [address] Apr, [facility] [address] [id number] [address] [place] [address], [place] [address] Apr, [facility] [address] [id number] [address] [place] [address], [place] [address] Apr, [facility] [address] [id number] [address] [place] [address], [place] [address] Apr, [facility] [address] [id number] [address] [place] [address], [place] [address] Apr, [facility] [address] [id number] [address] [place] [address], [place] [address] Apr, [facility] [address] [id number] [address] [place] [address], [place] [address] Apr, [facility] [address] [id number] [address] [place] [address], [place] [address] Apr, [facility] [address] [id number] [address] [place] [address], [place] [address] Apr, [facility] [address] [id number] [address] [place] [address], [place] [address] Apr, [facility] [address] [id number] [address] [place] [address], [place] [address] Mar, [facility] [address] [id number] [address] [place] [address], [place] [address] Mar, [facility] [address] [id number] [address] [place] [address], [place] [address] Mar, [facility] [address] [id number] [address] [place] [address], [place] [address] Mar, [facility] [address] [id number] [address] [place] [address], [place] [address] Mar, [facility] [address] [id number] [address] [place] [address], [place] [address] Mar, [facility] [address] [id number] [address] [place] [address], [place] [address] Mar, [facility] [address] [id number] [address] [place] [address], [place] [address] Mar, [facility] [address] [id number] [address] [place] [address], [place] [address] Mar, [facility] [address] [id number] [address] [place] [address], [place] [address] Mar, [facility] [address] [id number] [address] [place] [address], [place] [address] Mar, [facility] [address] [id number] [address] [place] [address], [place] [address] Mar, [facility] [address] [id number] [address] [place] [address], [place] [address] Feb, [facility] [address] [id number] [address] [place] [address], [place] [address] Feb, [facility] [address] [id number] [address] [place] [address], [place] [address] Feb, [facility] [address] [id number] [address] [place] [address], [place] [address] Feb, [facility] [address] [id number] [address] [place] [address], [place] [address] Feb, [facility] [address] [id number] [address] [place] [address], [place] [address] Feb, [facility] [address] [id number] [address] [place] [address], [place] [address] Feb, [facility] [address] [id number] [address] [place] [address], [place] [address] Feb, [facility] [address] [id number] [address] [place] [address], [place] [address] Feb, [facility] [address] [id number] [address] [place] [address], [place] [address] Feb, [facility] [address] [id number] [address] [place] [address], [place] [address] Feb, [facility] [address] [id number] [address] [place] [address], [place] [address] Jan, [facility] [address] [id number] [address] [place] [address], [place] [address] Jan, [facility] [address] [id number] [address] [place] [address], [place] [address] Jan, [facility] [address] [id number] [address] [place] [address], [place] [address] Jan, [facility] [address] [id number] [address] [place] [address], [place] [address] Jan, [facility] [address] [id number] [address] [place] [address], [place] [address] Jan, [facility] [address] [id number] [address] [place] [address], [place] [address] Jan, [facility] [address] [id number] [address] [place] [address], [place] [id number] Dec, [facility] [address] [id number] [address] [place] [address], [place] [address] 17 Dec, 2012 [facility] [address] [id number] [address] [place] [address], [place] [address] Dec, [facility] [address] [id number] [address] [place] [address], [place] [address] Dec, [facility] [address] [id number] [address] [place] [address], [place] [address] Dec, [facility] [address] [id number] [address] [place] [address], [place] [address] Nov, [facility] [address] [id number] [address] [place] [address], [place] [address] Oct, [facility] [address] [id number] [address] [place] [address], [place] [address] Oct, [facility] [address] [id number] [address] [place] [address], [place] [address] Oct, [facility] [address] [id number] [address] [place] [address], [place] [address] Oct, [facility] [address] [id number] [address] [place] [address], [place] [address] Oct, [facility] [address] [id number] [address] [place] [address], [place] [address] Sep, [facility] [address] [id number] [address] [place] [address], [place] [address] Sep, [facility] [address] [id number] [address] [place] [address], [place] [address] Sep, [facility] [address] [id number] [address] [place] [address], [place] [address] Sep, [facility] [address] [id number] [address] [place] [address], [place] [address] Aug, [facility] [address] [id number] [address] [place] [address], [place] [address] Aug, [facility] [address] [id number] [address] [place] [address], [place] [address] Aug, [facility] [address] [id number] [address] [place] [address], [place] [address] Aug, [facility] [address] [id number] [address] [place] [address], [place] [address] Aug, [facility] [address] [id number] [address] [place] [address], [place] [address] July, [facility] [address] [id number] [address] [place] [address], [place] [address] July, [facility] [address] [id number] [address] [place] [address], [place] [address] July, [facility] [address] [id number] [address] [place] [address], [place] [address] July, [facility] [address] [id number] [address] [place] [address], [place] [address] Jun, [facility] [address] [id number] [address] [place] [address], [place] [address] Jun, [facility] [address] [id number] [address] [place] [address], [place] [address] May, [facility] [address] [id number] [address] [place] [address], [place] [address] May, [facility] [address] [id number] [address] [place] [address], [place] [address] Apr, [facility] [address] [id number] [address] [place] [address], [place] [address] Apr, [facility] [address] [id number] [address] [place] [address], [place] [address] Mar, [facility] [address] [id number] [address] [place] [address], [place] [address] Mar, [facility] [address] [id number] [address] [place] [address], [place] [address] Feb, [facility] [address] [id number] [address] [place] [address], [place] [address] Feb, [facility] [address] [id number] [address] [place] [address], [place] [address] Feb, [facility] [address] [id number] [address] [place] [address], [place] [address] Feb, [facility] [address] [id number] [address] [place] [address], [place] [address] Feb, [facility] [address] [id number] [address] [place] [address], [place] [address] Feb, [facility] [address] [id number] [address] [place] [address], [place] [address] Jan, [facility] [address] [id number] [address] [place] [address], [place] [address] Jan, [facility] [address] [id number] [address] [place] [address], [place] [address] Jan, [facility] [address] [id number] [address] [place] [address], [place] [address] Jan, [facility] [address] [id number] [address] [place] [address], [place] [address] 15 Dec, 2011 [facility] [address] [id number] [address] [place] [address], [place] [address] 15 Dec, 2011 [facility] [address] [id number] [address] [place] [address] 18 Nov, 2011 [facility] [address] [id number] [address] [place] [address], [place] [address] 12 Nov, 2011 [facility] [address] [id number] [address] [place] [address], [place] [address] 07 Nov, 2011 [facility] [address] [id number] [address] [place] [address], [place] [address] Oct, [facility] [address] [id number] [address] [place] [address], [place] [address] Sep, [facility] [address] [id number] [address] [place] [address], [place] [address] Aug, [facility] [address] [id number] [address] [place] [address], [place] [address] July, [facility] [address] [id number] [address] [place] [address], [place] [address] July, [facility] [address] [id number] [address] [place] [address], [place] [address] July, [facility] [address] [id number] [address] [place] [address], [place] [address] July, [facility] [address] [id number] [address] [place] [address], [place] [address] July, [facility] [address] [id number] [address] [place] [address], [place] [address] Jun, [facility] [address] [id number] [address] [place] [address], [place] [address] May, [facility] [address] [id number] [address] [place] [address], [place] [address] May, [facility] [address] [id number] [address] [place] [address], [place] [address] May, [facility] [address] [id number] [address] [place] [address], [place] [address] Apr, [facility] [address] [id number] [address] [place] [address], [place] [address] Apr, [facility] [address] [id number] [address] [place] [address], [place] [address] Mar, [facility] [address] [id number] [address] [place] [address], [place] [address] Feb, [facility] [address] [id number] [address] [place] [address], [place] [address] Feb, [facility] [address] [id number] [address] [place] [address], [place] [address] 16 Feb, 2011 [facility] [address] [id number] [address] [place] [address], [place] [address] 15 Feb, 2011 [facility] [address] [id number] [address] [place] [address], [place] [address] 14 Feb, 2011 [facility] [address] [id number] [address] [place] [address], [place] [address] 14 Feb, 2011 [facility] [address] [id number] [address] [place] [address], [place] [address] 14 Feb, 2011 [facility] [address] [id number] [address] [place] [address], [place] [address] 29 Jan, 2011 [facility] [address] [id number] [address] [place] [address], [place] [address] Jan, [facility] [address] [id number] [address] [place] [address], [place] [address] Jan, [facility] [address] [id number] [address] [place] [address], [place] [address] 15 Aug, 2010 [facility] [address] [id number] [address] [place] [address], [place] [address] 30 Feb, 2010 [facility] [address] [id number] [address] [place] [address], [place] [address] Feb, [facility] [address] [id number] [address] [place] [address], [place] [address] 02 Feb, 2010 [facility] [address] [id number] [address] [place] [address], [place] [address] 28 Dec, 2009 [facility] [address] [id number] [address] [place] [address], [place] [address] 13 Jun, 2009 [facility] [address] [id number] [address] [place] [address], [place] [address] 26 Dec, 2008 [facility] [address] [id number] [address] [place] [address], [place] [address] Sep, IMMUNIZATIONS No Known Immunizations SOCIAL HISTORY Never Assessed REASON FOR VISIT PLAN OF CARE VITAL SIGNS Height 63 in 2014-04-23 Weight 114.38 lbs 2014-04-23 Temperature 98 degrees Fahrenheit 2014-04-23 Heart Rate 100 bpm 2014-04-23 Respiratory Rate 22 2014-04-23 Blood pressure systolic 88 mmHg 2014-04-23 Blood pressure diastolic 60 mmHg 2014-04-23 MEDICATIONS Unknown Medications RESULTS No Results PROCEDURES [...]
--- OUTSIDE RECORDS SUMMARY | 2019-07-15 19:42 | XMS REPORT ---
Author Author Shan Burger [facility] Organization 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 Name Role Phone Tao [facility] Unavailable PROBLEMS Type Condition ICD9-CM Code OFI18-MY Code Onset Dates Condition S tatus SNOMED Code Problem Low hemoglobin D64.9 Active 07203 7008 Problem Long-term use of high-risk medication Z79.899 Active 106541277 Problem Pain in left knee M25.562 Active 30 117754 Problem Chronic fatigue R53.82 Active 5270 2003 Problem Seasonal allergic rhinitis due to pollen J30.1 Active 49284524 Problem Bipolar disorder with depression F31.30 Active 35095146 Problem Routine gynecological examination Z01.419 Active 119226868 Problem High risk medication use Z79.899 Activ e 796646759 Problem Unspecified mood [affective] disorder F39 Active 399089484 Problem Iron deficiency anemia due to chronic blood loss D 50.0 Active 12578602 Problem Attention deficit hyperactivity disorder (ADHD), combi cosmo type F90.2 Active 273855694 Problem Bipolar disorder, unspecified F31.9 Active 01639206 Problem Generalized anxiety disorder F41.1 A ctive 90094118 Problem Amenorrhea N91.2 Active 94821880 Problem Schizoaffective disorder F25.9 Activ e 64543695 Problem Well woman exam Z01.419 Active 3103 58066 Problem Schizoaffective disorder, bipolar type F25.0 Active 39532951 Problem care, first in first trimester Z34.01 Active 321188168 Problem Vitamin D deficiency E55.9 Active 14610980 Problem Anxiety F41.9 Active 20453205 Problem Pain in right knee M25.561 Active 8 4971923 Problem General counseling and advice on female contraception Z30.09 Active 70676806 Problem Social phobia F40.10 Active 321175 02 Problem Relationship problem with family member Z63.8 Active 599267950 Problem Chronic post-traumatic stress disorder (PTSD) F43. 12 Active 343995639 Problem Positive test Z32.01 Active 472844663 ALLERGIES No Information ENCOUNTERS Encounter Location Date Diagnosis [facility] [address] [facility] [id number] [address] [place] [address] July, [facility] [address] [facility] [id number] [address] [place] [address] July, [facility] [address] [facility] [id number] [address] [place] [address] July, [facility] [address] [facility] [id number] [address] [place] [address] Jun, [facility] [address] [facility] [id number] [address] [place] [address] Jun, [facility] [address] [place] [id number] [address] [place] [address] Jun, care in third trime ster Z34.93 and 37 weeks gestation of Z3A.37 [facility] [address] [facility] [id number] [address] [place] [address] Jun, [facility] [address] [place] [id number] [address] [place] [address] Jun, Third trimester Z3 4.93 and 36 weeks gestation of Z3A.36 [place] [id number] [place] [address] Jun, [facility] [address] [facility] [id number] [address] [place] [address] Jun, Third trimester Z3 4.93 ; 35 weeks gestation of Z3A.[address] [facility] [address] [facility] [id number] [address] [place] [address] Jun, [facility] [address] [place] [id number] [address] [place] [address] May, [facility] [address] [facility] [id number] [address] [place] [address] 26 May, 2019 Third trimester Z3 4.93 ; 33 weeks gestation of Z3A.33 ; Anxiety F41.9 and Encounter for immunization Z23 [facility] [address] [id number] [address] [place] [address] May, [facility] [address] [facility] [id number] [address] [place] [address] 24 May, 2019 [facility] [address] [facility] [id number] [address] [place] [address] May, [facility] [address] [facility] [id number] [address] [place] [address] 17 May, 2019 [facility] [address] [facility] [id number] [address] [place] [address] May, [facility] [address] [facility] [id number] [address] [place] [address] 16 May, 2019 [facility] [address] [facility] [id number] [address] [place] [address] 12 May, 2019 [facility] [address] [facility] [id number] [address] [place] [address] 10 May, 2019 [facility] [address] [facility] [id number] [address] [place] [address] 10 May, 2019 care, first pregnan cy in third trimester Z34.03 ; 31 weeks gestation of Z3A.31 and Decreased movements in third trimester, single or unspecified fetus O36.8130 [facility] [address] [facility] [id number] [address] [place] [address] 06 May, 2019 Fever and chills R50.9 and F mel-like symptoms R68.89 [facility] [address] [facility] [id number] [address] [place] [address] 11 Apr, 2019 [facility] [address] [place] [id number] [address] [place] [address] Apr, Second trimester Z 34.92 and 27 weeks gestation [address]A.27 [facility] [address] [id number] [address] [place] [address] 15 Mar, 2019 Acute non-recurrent maxillar y sinusitis J01.[address] [facility] [address] [id number] [address] [place] [address] 15 Mar, 2019 [facility] [address] [id number] [address] [place] [address] Mar, [facility] [address] [id number] [place] [address] Mar, [facility] [address] [id number] [address] [place] [address] Mar, care in second trim gabo Z34.92 and 23 weeks gestation of Z3A.23 [place] [address] [facility] [id number] [address] [place] [address] Feb, care in second trim gabo Z34.92 and 19 weeks gestation of Z3A.19 [place] [address] [id number] [address] [place] [address] Feb, [place] [address] [facility] [id number] [address] [place] [address] Feb, care in second trim gabo Z34.92 ; 19 weeks gestation of Z3A.19 and Encounter for immunization Z23 [facility] [address] [id number] [address] [place] [address] Feb, Dental examination Z01.20 [place] [address] [id number] [address] [place] [address] Feb, [place] [address] [facility] [id number] [address] [place] [address] Jan, [facility] [address] [facility] [id number] [address] [place] [address] Jan, care in second trim gabo Z34.92 and 15 [address]15 [facility] [address] [id number] [address] [place] [address] Dec, First trimester Z3 4.91 ; 11 weeks gestation of Z3A.11 and Nausea/vomiting in O21.9 [facility] [address] [id number] [address] [place] [address] Dec, [facility] [address] [id number] [address] [place] [address] Dec, [facility] [address] [id number] [address] [place] [address] Dec, care, first pregnan cy in first trimester Z34.01 [facility] [address] [facility] [id number] [address] [place] [address] Dec, [place] [address] [facility] [id number] [address] [place] [address] Dec, Chronic post-traumatic stres s disorder (PTSD) F43.12 ; Relationship problem with family member Z63.8 [address] Positive [address]32[address]01 [facility] [address] [id number] [address] [place] [address] Nov, [facility] [address] [facility] [id number] [address] [place] [address] Nov, care, first pregnan cy in first trimester Z34.01 [facility] [address] [id number] [address] [place] [address] Nov, [facility] [address] [id number] [address] [place] [address] Nov, care, first pregnan cy in first trimester Z34.01 and [address]01 [facility] [address] [id number] [address] [place] [address] Nov, [facility] [address] [id number] [address] [place] [address] 20 Nov, 2018 [facility] [address] [id number] [address] [place] [address] 18 Nov, 2018 [facility] [address] [id number] [address] [place] [address] Nov, [facility] [address] [id number] [address] [place] [address] Nov, [place] [address] [id number] [address] [place] [address] Nov, Positive test Z32. 01 ; Well woman exam with routine gynecological exam Z01.419 ; Amenorrhea N91.2 ; , unspecified gestational age Z34.90 ; Encounter for smoking cessation counseling Z71.6 ; Acute vaginitis N76.0 and Other specified bacterial agents as the cause of diseases classified elsewhere B96.89 [place] [address] [facility] [id number] [address] [place] [address] Nov, [place] [address] [id number] [address] [place] [address] Nov, [place] [address] [id number] [address] [place] [address] Oct, Bipolar disorder with depres arlen F31.30 [place] [address] [id number] [address] [place] [address] Oct, Bipolar disorder with depres arlen F31.30 ; Chronic post-traumatic stress disorder (PTSD) F43.12 and Relationship problem with family member Z63.8 [place] [id number] [id number] [address] [place] [address] Aug, Bipolar disorder with depres arlen F31.30 ; Chronic post-traumatic stress disorder (PTSD) F43.12 and Relationship problem with family member Z63.8 [place] [address] [id number] [address] [place] [address] Mar, Schizoaffective disorder, bi polar type F25.0 ; Social phobia F40.10 ; Chronic post-traumatic stress disorder (PTSD) F43.12 and Relationship problem with family member Z63.8 [facility] [id number] [place] [address] Oct, Pain in right shoulder M25.511 and Bipol ar disorder with depression F31.30 [facility] [address] [facility] [id number] [address] [place] [address] July, [facility] [address] [facility] [id number] [address] [place] [address] July, [facility] [address] [facility] [id number] [address] [place] [address] July, Well woman exam Z01.419 and Vaginal discharge N89.8 [facility] [address] [facility] [id number] [address] [place] [address] Jun, [facility] [address] [facility] [id number] [address] [place] [address] Mar, [facility] [address] [facility] [id number] [address] [place] [address] May, Bipolar disorder, unspecifie d F31.9 [facility] [address] [facility] [id number] [address] [place] [address] May, Bipolar disorder, unspecifie d F31.9 ; Attention deficit hyperactivity disorder (ADHD), combined type F90.2 and Schizoa[address]ive disorder F25.9 [facility] [address] [facility] [id number] [address] [place] [address] May, Bipolar disorder with depres arlen F31.30 [facility] [address] [facility] [id number] [address] [place] [address] May, Bipolar disorder, unspecifie d F31.9 ; Attention deficit hyperactivity disorder (ADHD), combined type F90.2 and Schizoaffective disorder F25.9 [facility] [address] [facility] [id number] [address] [place] [address] Apr, Seasonal allergic rhinitis d ue to pollen J30.1 [facility] [address] [facility] [id number] [address] [place] [address] Apr, [facility] [address] [facility] [id number] [address] [place] [address] Mar, Attention deficit disorder ( ADD) without 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 ; Bipolar disorder with depression F31.30 and Generalized anxiety disorder F41.1 [facility] [address] [place] [id number] [address] [place] [address] Mar, [facility] [address] [place] [id number] [address] [place] [address] Feb, Unspecified mood [affective] disorder F39 [place] [address] [place] [id number] [address] [place] [address] Feb, Unspecified mood [affective] disorder F39 [place] [address] [place] [id number] [address] [place] [address] Feb, [facility] [address] [place] [id number] [address] [place] [address] Jan, Amenorrhea N91.2 ; Vitamin D deficiency E55.9 and Iron deficiency anemia due to chronic blood loss D50.0 [place] [address] [place] [id number] [address] [place] [address] Jan, Encounter for test Z32.00 [facility] [address] [place] [id number] [address] [place] [address] Dec, Unspecified mood [affective] disorder F39 ; Bipolar disorder, unspecified F31.9 and Attention deficit hyperactivity disorder (ADHD), combined type F90.2 [facility] [address] [facility] [id number] [address] [place] [address] Nov, [facility] [address] [place] [id number] [address] [place] [address] Nov, [facility] [address] [place] [id number] [address] [place] [address] Nov, [facility] [address] [id number] [address] [place] [address] Nov, [facility] [address] [id number] [address] [place] [address] Nov, [facility] [address] [id number] [address] [place] [address] Nov, Dysuria R30.0 [facility] [address] [id number] [address] [place] [address] Oct, [facility] [address] [id number] [address] [place] [address] Oct, [facility] [address] [id number] [address] [place] [address] Sep, [facility] [address] [facility] [id number] [address] [place] [address] Sep, Bipolar disorder, unspecifie d F31.9 and Schizoaffective disorder F25.9 [facility] [address] [facility] [id number] [address] [place] [address] Sep, [facility] [address] [facility] [id number] [address] [place] [address] Aug, Unspecified mood [affective] disorder F39 [facility] [address] [facility] [id number] [address] [place] [address] Aug, [facility] [address] [facility] [id number] [address] [place] [address] 14 Aug, 2015 General counseling and advic e on female contraception Z30.09 and Iron deficiency anemia due to chronic blood loss D50.0 [facility] [address] [id number] [address] [place] [address] July, 2016 Routine gynecological examin ation Z01.419 ; General counseling and advice on female contraception Z30.09 ; High risk medication use Z79.899 ; Other specified bacterial agents as the cause of diseases classified elsewhere B96.89 and Acute vaginitis N76.0 [place] [address] [id number] [address] [place] [address] July, Attention deficit hyperactiv ity disorder (ADHD), combined type F90.2 ; Bipolar disorder, unspecified F31.9 and Schizoaffective disorder F25.9 [place] [address] [id number] [address] [place] [address] July, Unspecified mood [affective] disorder F39 [place] [address] [id number] [address] [place] [address] July, [place] [address] [id number] [address] [place] [address] July, [place] [address] [facility] [id number] [address] [place] [address] July, Low hemoglobin D64.9 [place] [address] [id number] [address] [place] [address] July, [place] [address] [id number] [address] [place] [address] July, General counselling and advi ce on contraception Z30.09 ; Pain in left knee M25.562 ; Pain in right knee M25.561 ; Chronic fatigue R53.82 and Vitamin D deficiency E55.9 [place] [address] [id number] [address] [place] [address] Jun, Fatigue R53.83 [place] [address] [id number] [address] [place] [address] Jun, Fatigue R53.83 ; Low hemoglo bin D64.9 ; Long-term use of high-risk medication Z79.899 ; Sore throat J02.9 and Fever, low grade R50.9 [place] [address] [facility] [id number] [address] [place] [address] Jun, Unspecified mood [affective] disorder F39 [facility] [address] [id number] [address] [place] [address] May, Unspecified mood [affective] disorder F39 [facility] [address] [id number] [address] [place] [address] May, [facility] [address] [id number] [address] [place] [address] May, Attention deficit hyperactiv ity disorder (ADHD), combined type F90.2 ; Bipolar disorder, unspecified F31.9 and Schizoaffective disorder F25.9 [facility] [address] [id number] [address] [place] [address] May, [facility] [address] [id number] [address] [place] [address] Apr, [facility] [address] [id number] [address] [place] [address] Apr, [facility] [address] [id number] [address] [place] [address] Apr, [facility] [address] [id number] [address] [place] [address] Apr, [facility] [address] [id number] [place] [id number] Apr, Ingestion of unknown drug T5 0.901A [facility] [address] [id number] [address] [place] [address] Apr, [facility] [address] [id number] [address] [place] [address] 17 Apr, 2015 Unspecified mood [affective] disorder F39 [facility] [address] [id number] [address] [place] [address] 16 Apr, 2015 Unspecified mood [affective] disorder F39 [facility] [address] [id number] [address] [place] [address] Apr, Unspecified mood [affective] disorder F39 [facility] [address] [id number] [address] [place] [address] Apr, rn long term care use of drug Z79.89 9 ; Attention deficit hyperactivity disorder (ADHD), combined type F90.2 ; Bipolar disorder, unspecified F31.9 and Schizoa[address] disorder F25.9 [facility] [address] [id number] [address] [place] [phone] Mar, Unspecified mood [affective] disorder F39 [facility] [address] [id number] [place] [id number] Mar, Menstrual period late N91.0 and High risk sexual behavior Z72.51 [facility] [address] [id number] [address] [place] [id number] Mar, Unspecified mood [affective] disorder [address] [place] [address] [id number] [address] [place] [id number] Mar, Unspecified mood [affective] disorder F39 [facility] [address] [id number] [address] [place] [id number] Mar, Unspecified mood [affective] disorder [address] [place] [address] [id number] [address] [place] [id number] Feb, [facility] [address] [id number] [address] [place] [id number] Feb, Attention deficit hyperactiv ity disorder (ADHD), combined type F90.2 ; Episodic mood disorder 296.90 and Bipolar disorder, unspecified F31.9 [facility] [address] [id number] [address] [place] [phone] Feb, Major depressive disorder, r ecurrent, moderate F33.1 [facility] [address] [id number] [address] [place] [phone] Feb, Unspecified mood [affective] disorder F39 [facility] [address] [id number] [address] [place] [id number] Feb, Unspecified mood [affective] disorder F39 [facility] [address] [id number] [address] [place] [phone] Feb, [facility] [address] [id number] [address] [place] [id number] Feb, Unspecified mood [affective] disorder F39 [facility] [address] [id number] [address] [place] [address] Feb, Bipolar disorder, unspecifie d F31.9 [facility] [address] [id number] [address] [place] [address] Jan, [facility] [address] [id number] [address] [place] [address] Jan, Unspecified mood [affective] disorder F39 [facility] [address] [id number] [address] [place] [address] Jan, Unspecified mood [affective] disorder F39 [facility] [address] [id number] [address] [place] [address] Jan, Bipolar disorder, unspecifie d F31.9 [facility] [address] [id number] [address] [place] [address] Jan, Attention deficit hyperactiv ity disorder (ADHD), combined type F90.2 and Bipolar disorder, unspecified F31.9 [facility] [address] [id number] [address] [place] [address] Jan, [facility] [address] [id number] [address] [place] [address] Jan, [facility] [address] [id number] [address] [place] [address] Jan, Unspecified mood [affective] disorder F39 [facility] [address] [id number] [address] [place] [address] Dec, Unspecified mood [affective] disorder F39 [facility] [address] [id number] [address] [place] [address] Dec, Unspecified mood [affective] disorder F39 [facility] [address] [id number] [address] [place] [address] Dec, Unspecified mood [affective] disorder F39 [facility] [address] [facility] [id number] [address] [place] [address] Dec, [facility] [address] [facility] [id number] [address] [place] [address] Dec, Viral upper respiratory trac t infection J06.9 ; Encounter for immunization Z23 and Smoker F17.200 [facility] [address] [facility] [id number] [address] [place] [address] Dec, [facility] [address] [facility] [id number] [address] [place] [address] Dec, Schizoaffective disorder F25 .9 and Attention deficit hyperactivity disorder (ADHD), combined type F90.2 [facility] [address] [facility] [id number] [address] [place] [address] Nov, [facility] [address] [facility] [id number] [address] [place] [address] Nov, Unspecified mood [affective] disorder F39 [facility] [address] [facility] [id number] [address] [place] [address] Nov, Schizoaffective disorder, un specified 295.70 ; Generalized anxiety disorder 300.02 and Attention deficit disorder of childhood with hyperactivity 314.01 [facility] [address] [id number] [address] [place] [address] Oct, [facility] [address] [facility] [id number] [address] [place] [address] Oct, [facility] [address] [facility] [id number] [address] [place] [address] Oct, [facility] [address] [facility] [id number] [address] [place] [address] Oct, Affective disorder 296.90 [facility] [address] [facility] [id number] [address] [place] [address] Oct, Screen for STD (sexually tra nsmitted disease) V74.5 and Encounter for counseling regarding contraception V25.09 [facility] [address] [id number] [address] [place] [address] Sep, [facility] [address] [facility] [id number] [address] [place] [address] Sep, [facility] [address] [id number] [address] [place] [address] Sep, Episodic mood disorder 296.[address] [facility] [address] [facility] [id number] [address] [place] [address] Sep, [facility] [address] [facility] [id number] [address] [place] [address] Sep, [facility] [address] [facility] [id number] [address] [place] [address] Aug, [facility] [address] [facility] [id number] [address] [place] [address] Aug, [facility] [address] [facility] [id number] [address] [place] [address] Aug, [facility] [address] [facility] [id number] [address] [place] [address] Aug, Episodic mood disorder 296.[address] [facility] [address] [facility] [id number] [address] [place] [address] Aug, [facility] [address] [facility] [id number] [address] [place] [address] July, Allergic rhinitis 477.9 [facility] [address] [facility] [id number] [address] [place] [address] July, Schizoaffective disorder, un specified 295.70 [facility] [address] [id number] [address] [place] [address], [place] [address] July, [facility] [address] [id number] [address] [place] [address], [place] [address] 14 Jun, 2014 [facility] [address] [id number] [address] [place] [address], [place] [address] 13 Jun, 2014 [facility] [address] [id number] [address] [place] [address], [place] [address] 24 May, 2014 [facility] [address] [id number] [address] [place] [address], [place] [address] 24 May, 2014 [facility] [address] [id number] [address] [place] [address], [place] [address] May, [facility] [address] [id number] [address] [place] [address], [place] [address] May, [facility] [address] [id number] [address] [place] [address], [place] [address] 20 Apr, 2014 [facility] [address] [id number] [address] [place] [address], [place] [address] Apr, [facility] [address] [id number] [address] [place] [address], [place] [address] Apr, [facility] [address] [id number] [address] [place] [address] Apr, [facility] [address] [id number] [address] [place] [address] 18 Apr, 2014 [facility] [address] [id number] [address] [place] [address], [place] [address] Apr, [facility] [address] [id number] [address] [place] [address], [place] [address] Apr, [facility] [address] [id number] [address] [place] [address] Apr, 2014 [facility] [address] [id number] [address] [place] [address] Mar, [facility] [address] [id number] [address] [place] [address], [place] [address] Mar, [facility] [address] [id number] [address] [place] [address], [place] [address] Mar, [facility] [address] [id number] [address] [place] [address], [place] [address] Mar, [facility] [address] [id number] [address] [place] [address], [place] [address] Feb, [facility] [address] [id number] [address] [place] [address], [place] [address] Feb, [facility] [address] [id number] [address] [place] [address], [place] [address] Feb, [facility] [address] [id number] [address] [place] [address], [place] [address] Feb, [facility] [address] [id number] [address] [place] [address], [place] [address] Feb, [facility] [address] [id number] [address] [place] [address], [place] [address] Feb, [facility] [address] [id number] [address] [place] [address], [place] [address] Feb, [facility] [address] [id number] [address] [place] [address], [place] [address] Feb, [facility] [address] [id number] [address] [place] [address], [place] [address] Feb, [facility] [address] [id number] [address] [place] [address], [place] [address] Feb, [facility] [address] [id number] [address] [place] [address], [place] [address] Feb, [facility] [address] [id number] [address] [place] [address], [place] [address] Jan, [facility] [address] [id number] [address] [place] [address], [place] [address] Jan, [facility] [address] [id number] [address] [place] [address], [place] [address] Dec, [facility] [address] [id number] [address] [place] [address], [place] [address] Dec, [facility] [address] [id number] [address] [place] [address], [place] [address] Dec, [facility] [address] [id number] [address] [place] [address], [place] [address] Dec, [facility] [address] [id number] [address] [place] [address], [place] [address] Dec, [facility] [address] [id number] [address] [place] [address], [place] [address] Dec, [facility] [address] [id number] [address] [place] [address], [place] [address] Dec, [facility] [address] [id number] [address] [place] [address], [place] [address] Dec, [facility] [address] [id number] [address] [place] [address], [place] [address] Dec, [facility] [address] [id number] [address] [place] [address], [place] [address] Dec, [facility] [address] [id number] [address] [place] [address], [place] [address] Dec, [facility] [address] [id number] [address] [place] [address], [place] [address] Dec, [facility] [address] [id number] [address] [place] [address], [place] [address] Dec, [facility] [address] [id number] [address] [place] [address], [place] [address] Dec, [facility] [address] [id number] [address] [place] [address] [address] 08 Dec, 2013 [facility] [address] [id number] [address] [place] [address], [place] [address] 08 Dec, 2013 [facility] [address] [id number] [address] [place] [address], [place] [address] Dec, [facility] [address] [id number] [address] [place] [address], [place] [address] Dec, [facility] [address] [id number] [address] [place] [address], [place] [address] Dec, [facility] [address] [id number] [address] [place] [address], [place] [address] Dec, [facility] [address] [id number] [address] [place] [address], [place] [address] Dec, [facility] [address] [id number] [address] [place] [address], [place] [address] Dec, [facility] [address] [id number] [address] [place] [address], [place] [address] Dec, [facility] [address] [id number] [address] [place] [address], [place] [address] Dec, [facility] [address] [id number] [address] [place] [address], [place] [address] Nov, [facility] [address] [id number] [address] [place] [address], [place] [address] Nov, 2013 [facility] [address] [id number] [address] [place] [address] Nov, 2013 [facility] [address] [id number] [address] [place] [address], [place] [address] 22 Nov, 2013 [facility] [address] [id number] [address] [place] [address], [place] [address] Nov, 2013 [facility] [address] [id number] [address] [place] [address], [place] [address] Nov, 2013 [facility] [address] [id number] [facility] [place] [address] 17 Nov, 2013 [facility] [address] [id number] [address] [place] [address], [place] [address] 17 Nov, 2013 [facility] [address] [id number] [facility] [place] [address] 15 Nov, 2013 [facility] [address] [id number] [address] [place] [address], [place] [address] 15 Nov, 2013 [facility] [address] [id number] [address] [place] [address], [place] [address] 02 Nov, 2013 [facility] [address] [id number] [address] [place] [address], [place] [address] Nov, 2013 [facility] [address] [id number] [address] [place] [address], [place] [address] Nov, 2013 [facility] [address] [id number] [address] [place] [address], [place] [address] Nov, 2013 [facility] [address] [id number] [address] [place] [address], [place] [address] Oct, [facility] [address] [id number] [address] [place] [address], [place] [address] Oct, [facility] [address] [id number] [address] [place] [address], [place] [address] Oct, [facility] [address] [id number] [address] [place] [address], [place] [address] Oct, [facility] [address] [id number] [address] [place] [address], [place] [address] Oct, [facility] [address] [id number] [address] [place] [address], [place] [address] Oct, [facility] [address] [id number] [address] [place] [address], [place] [address] Oct, [facility] [address] [id number] [address] [place] [address], [place] [address] Oct, [facility] [address] [id number] [address] [place] [address], [place] [address] Sep, [facility] [address] [id number] [address] [place] [address], [place] [address] Sep, [facility] [address] [id number] [address] [place] [address], [place] [address] Sep, [facility] [address] [id number] [address] [place] [address], [place] [address] Sep, [facility] [address] [id number] [address] [place] [address], [place] [address] Sep, [facility] [address] [id number] [address] [place] [address], [place] [address] Sep, [facility] [address] [id number] [address] [place] [address], [place] [address] Aug, [facility] [address] [id number] [address] [place] [address], [place] [address] Aug, [facility] [address] [id number] [address] [place] [address], [place] [address] July, [facility] [address] [id number] [address] [place] [address], [place] [address] July, [facility] [address] [id number] [address] [place] [address], [place] [address] July, [facility] [address] [id number] [address] [place] [address], [place] [address] July, [facility] [address] [id number] [address] [place] [address], [place] [address] July, [facility] [address] [id number] [address] [place] [address], [place] [address] July, [facility] [address] [id number] [address] [place] [address], [place] [address] July, [facility] [address] [id number] [address] [place] [address], [place] [address] July, [facility] [address] [id number] [facility] [place] [address] July, [facility] [address] [id number] [address] [place] [address], [place] [address] July, [facility] [address] [id number] [address] [place] [address], [place] [address] July, [facility] [address] [id number] [address] [place] [address], [place] [address] July, [facility] [address] [id number] [address] [place] [address], [place] [address] July, [facility] [address] [id number] [address] [place] [address], [place] [address] July, [facility] [address] [id number] [address] [place] [address], [place] [address] July, [facility] [address] [id number] [address] [place] [address], [place] [address] July, [facility] [address] [id number] [address] [place] [address], [place] [address] July, [facility] [address] [id number] [address] [place] [address], [place] [address] July, [facility] [address] [id number] [address] [place] [address], [place] [address] Jun, [facility] [address] [id number] [address] [place] [address], [place] [address] Jun, [facility] [address] [id number] [address] [place] [address], [place] [address] Jun, [facility] [address] [id number] [address] [place] [address], [place] [address] Jun, [facility] [address] [id number] [address] [place] [address], [place] [address] Jun, [facility] [address] [id number] [facility] [place] [address] 10 Jun, 2013 [facility] [address] [id number] [facility] [place] [address] Jun, [facility] [address] [id number] [facility] [place] [address] Jun, [facility] [address] [id number] [address] [place] [address], [place] [address] Jun, [facility] [address] [id number] [facility] [place] [address] Jun, [facility] [address] [id number] [address] [place] [address], [place] [address] Jun, [facility] [address] [id number] [address] [place] [address], [place] [address] Jun, [facility] [address] [id number] [address] [place] [address], [place] [address] May, [facility] [address] [id number] [address] [place] [address], [place] [address] May, [facility] [address] [id number] [address] [place] [address], [place] [address] 25 May, 2013 [facility] [address] [id number] [address] [place] [address], [place] [address] May, [facility] [address] [id number] [address] [place] [address], [place] [address] May, [facility] [address] [id number] [address] [place] [address], [place] [address] 06 May, 2013 [facility] [address] [id number] [address] [place] [address], [place] [address] 05 May, 2013 [facility] [address] [id number] [address] [place] [address], [place] [address] 05 May, 2013 [facility] [address] [id number] [address] [place] [address], [place] [address] May, [facility] [address] [id number] [address] [place] [address], [place] [address] May, [facility] [address] [id number] [address] [place] [address], [place] [address] Apr, [facility] [address] [id number] [address] [place] [address], [place] [address] Apr, [facility] [address] [id number] [address] [place] [address], [place] [address] Apr, [facility] [address] [id number] [address] [place] [address], [place] [address] Apr, [facility] [address] [id number] [address] [place] [address], [place] [address] Apr, [facility] [address] [id number] [address] [place] [address], [place] [address] Apr, [facility] [address] [id number] [address] [place] [address], [place] [address] Apr, [facility] [address] [id number] [address] [place] [address], [place] [address] Apr, [facility] [address] [id number] [address] [place] [address], [place] [id number] Apr, [facility] [address] [id number] [address] [place] [address], [place] [address] Apr, [facility] [address] [id number] [address] [place] [address], [place] [address] Apr, [facility] [address] [id number] [address] [place] [address], [place] [address] Apr, [facility] [address] [id number] [address] [place] [address], [place] [address] Apr, [facility] [address] [id number] [address] [place] [address], [place] [address] Apr, [facility] [address] [id number] [address] [place] [address], [place] [address] Mar, [facility] [address] [id number] [address] [place] [address], [place] [address] Mar, [facility] [address] [id number] [address] [place] [address], [place] [address] Mar, [facility] [address] [id number] [address] [place] [address], [place] [address] Mar, [facility] [address] [id number] [address] [place] [address], [place] [address] Mar, [facility] [address] [id number] [address] [place] [address], [place] [address] Mar, [facility] [address] [id number] [address] [place] [address], [place] [address] Mar, [facility] [address] [id number] [address] [place] [address], [place] [address] Mar, [facility] [address] [id number] [address] [place] [address], [place] [address] Mar, [facility] [address] [id number] [address] [place] [address], [place] [address] Mar, [facility] [address] [id number] [address] [place] [address], [place] [address] Mar, [facility] [address] [id number] [address] [place] [address], [place] [address] Mar, [facility] [address] [id number] [address] [place] [address], [place] [address] Feb, [facility] [address] [address] [id number] [address] [place] [address], [place] [address] Feb, [facility] [address] [id number] [address] [place] [address], [place] [address] Feb, [facility] [address] [id number] [address] [place] [address], [place] [address] Feb, [facility] [address] [id number] [address] [place] [address], [place] [address] Feb, [facility] [address] [id number] [address] [place] [address], [place] [address] Feb, [facility] [address] [id number] [address] [place] [address], [place] [address] Feb, [facility] [address] [id number] [address] [place] [address], [place] [address] Feb, [facility] [address] [id number] [address] [place] [address], [place] [address] Feb, [facility] [address] [id number] [address] [place] [address], [place] [address] Feb, [facility] [address] [id number] [address] [place] [address], [place] [address] Feb, [facility] [address] [id number] [address] [place] [address], [place] [address] Jan, [facility] [address] [id number] [address] [place] [address], [place] [address] Jan, [facility] [address] [id number] [address] [place] [address], [place] [address] Jan, [facility] [address] [id number] [address] [place] [address] Jan, [facility] [address] [id number] [address] [place] [address] Jan, [facility] [address] [id number] [address] [place] [address], [place] [address] Jan, [facility] [address] [id number] [address] [place] [address] Jan, [facility] [address] [id number] [address] [place] [address], [place] [address] Dec, [facility] [address] [id number] [address] [place] [address], [place] [address] 17 Dec, 2012 [facility] [address] [id number] [address] [place] [address], [place] [address] 10 Dec, 2012 [facility] [address] [id number] [address] [place] [address], [place] [address] 10 Dec, 2012 [facility] [address] [id number] [address] [place] [address], [place] [address] 04 Dec, 2012 [facility] [address] [id number] [address] [place] [address], [place] [address] Nov, [facility] [address] [id number] [address] [place] [address], [place] [address] Oct, [facility] [address] [id number] [address] [place] [address], [place] [address] Oct, [facility] [address] [id number] [address] [place] [address], [place] [address] Oct, [facility] [address] [id number] [address] [place] [address], [place] [address] Oct, [facility] [address] [id number] [address] [place] [address], [place] [address] Oct, [facility] [address] [id number] [address] [place] [address], [place] [address] Sep, [facility] [address] [id number] [address] [place] [address], [place] [address] Sep, [facility] [address] [id number] [address] [place] [address], [place] [address] Sep, [facility] [address] [id number] [address] [place] [address], [place] [address] Sep, [facility] [address] [id number] [address] [place] [address], [place] [address] Aug, [facility] [address] [id number] [address] [place] [address], [place] [address] Aug, [facility] [address] [id number] [address] [place] [address], [place] [address] Aug, [facility] [address] [id number] [address] [place] [address], [place] [address] Aug, [facility] [address] [id number] [address] [place] [address], [place] [address] Aug, [facility] [address] [id number] [address] [place] [address], [place] [address] July, [facility] [address] [id number] [address] [place] [address], [place] [address] July, [facility] [address] [id number] [address] [place] [address], [place] [address] July, [facility] [address] [id number] [address] [place] [address], [place] [address] July, [facility] [address] [id number] [address] [place] [address], [place] [address] Jun, [facility] [address] [id number] [address] [place] [address], [place] [address] Jun, [facility] [address] [id number] [address] [place] [address], [place] [address] May, [facility] [address] [id number] [address] [place] [address], [place] [address] May, [facility] [address] [id number] [address] [place] [address], [place] [address] Apr, [facility] [address] [id number] [address] [place] [address], [place] [address] Apr, [facility] [address] [id number] [address] [place] [address], [place] [address] Mar, [facility] [address] [id number] [address] [place] [address], [place] [address] Mar, [facility] [address] [id number] [address] [place] [address] Feb, [facility] [address] [id number] [address] [place] [address], [place] [address] Feb, [facility] [address] [id number] [address] [place] [address], [place] [address] Feb, [facility] [address] [id number] [address] [place] [address], [place] [address] Feb, [facility] [address] [id number] [address] [place] [address], [place] [address] Feb, [facility] [address] [id number] [address] [place] [address], [place] [address] Feb, [facility] [address] [id number] [address] [place] [address], [place] [address] Jan, [facility] [address] [id number] [address] [place] [address], [place] [address] Jan, [facility] [address] [id number] [address] [place] [address], [place] [address] Jan, [facility] [address] [id number] [address] [place] [address], [place] [address] Jan, [facility] [address] [id number] [address] [place] [address], [place] [address] Dec, [facility] [address] [id number] [address] [place] [address], [place] [address] 15 Dec, 2011 [facility] [address] [id number] [address] [place] [address], [place] [address] 18 Nov, 2011 [facility] [address] [id number] [address] [place] [address], [place] [address] 12 Nov, 2011 [facility] [address] [id number] [address] [place] [address], [place] [address] 07 Nov, 2011 [facility] [address] [id number] [address] [place] [address], [place] [address] Oct, [facility] [address] [id number] [address] [place] [address], [place] [address] Sep, [facility] [address] [id number] [address] [place] [address], [place] [address] Aug, [facility] [address] [id number] [address] [place] [address], [place] [address] July, [facility] [address] [id number] [address] [place] [address], [place] [address] July, [facility] [address] [id number] [address] [place] [address], [place] [address] July, [facility] [address] [id number] [address] [place] [address], [place] [address] July, [facility] [address] [id number] [address] [place] [address], [place] [address] July, [facility] [address] [id number] [address] [place] [address], [place] [address] Jun, [facility] [address] [id number] [address] [place] [address], [place] [address] May, [facility] [address] [id number] [address] [place] [address], [place] [address] May, [facility] [address] [id number] [address] [place] [address], [place] [address] May, [facility] [address] [id number] [address] [place] [address], [place] [address] Apr, [facility] [address] [id number] [address] [place] [address], [place] [address] Apr, [facility] [address] [id number] [address] [place] [address], [place] [address] Mar, [facility] [address] [id number] [address] [place] [address], [place] [address] Feb, [facility] [address] [id number] [address] [place] [address], [place] [address] 16 Feb, 2011 [facility] [address] [id number] [address] [place] [address], [place] [address] 16 Feb, 2011 [facility] [address] [id number] [address] [place] [address], [place] [address] 15 Feb, 2011 [facility] [address] [id number] [address] [place] [address], [place] [address] 14 Feb, 2011 [facility] [address] [id number] [address] [place] [address], [place] [address] 14 Feb, 2011 [facility] [address] [id number] [address] [place] [address], [place] [address] 14 Feb, 2011 [facility] [address] [id number] [address] [place] [address], [place] [address] 29 Jan, 2011 [facility] [address] [id number] [address] [place] [address], [place] [address] 19 Jan, 2011 [facility] [address] [id number] [address] [place] [address], [place] [address] 19 Jan, 2011 [facility] [address] [id number] [address] [place] [address], [place] [address] 15 Aug, 2010 [facility] [address] [id number] [address] [place] [address], [place] [address] 30 Feb, 2010 [facility] [address] [id number] [address] [place] [address], [place] [address] 21 Feb, 2010 [facility] [address] [id number] [address] [place] [address] 02 Feb, 2010 [facility] [address] [id number] [address] [place] [address], [place] [address] 28 Dec, 2009 [facility] [address] [id number] [address] [place] [address], [place] [address] 13 Jun, 2009 [facility] [address] [id number] [address] [place] [address], [place] [address] 26 Dec, 2008 [facility] [address] [id number] [address] [place] [address] 16 Sep, 2007 IMMUNIZATIONS No Known Immunizations SOCIAL HISTORY Never Assessed REASON FOR VISIT PLAN OF CARE VITAL SIGNS MEDICATIONS Unknown Medications RESULTS No Results PROCEDURES Procedure Date Ordered Result Body Site COMPREHENSIVE CARE MANAGEMENT HAP - OCK Mar 11, 2014 INSTRUCTIONS MEDICATIONS ADMINISTERED No Known Medications [...]
--- OUTSIDE RECORDS SUMMARY | 2019-07-15 19:43 | XMS REPORT ---
Author Author Shan [facility] Organization [facility] Address [address], [place] [id number] Care Team Providers Care Staffing Administrator Name Role Phone Tao [facility] Unavailable PROBLEMS Type Condition ICD9-CM Code [id number] Code Onset Dates Condition S tatus SNOMED Code Problem Low hemoglobin D64.9 Active 18395 7008 Problem Long-term use of high-risk medication Z79.899 Active 989811526 Problem Pain in left knee M25.562 Active 30 528450 Problem Chronic fatigue R53.82 Active 5270 2003 Problem Seasonal allergic rhinitis due to pollen J30.1 Active 69917663 Problem Bipolar disorder with depression F31.30 Active 51108260 Problem Routine gynecological examination Z01.419 Active 680010173 Problem High risk medication use Z79.899 Activ e 751357049 Problem Unspecified mood [affective] disorder F39 Active 946350429 Problem Iron deficiency anemia due to chronic blood loss D 50.0 Active 59839518 Problem Attention deficit hyperactivity disorder (ADHD), combi cosmo type F90.2 Active 548310369 Problem Bipolar disorder, unspecified F31.9 Active 90316409 Problem Generalized anxiety disorder F41.1 A ctive 19783051 Problem Amenorrhea N91.2 Active 45731717 Problem Schizoaffective disorder F25.9 Activ e 71401224 Problem Well woman exam Z01.419 Active 3103 79951 Problem Schizoaffective disorder, bipolar type F25.0 Active 61357691 Problem care, first in first trimester Z34.01 Active 557585194 Problem Vitamin D deficiency E55.9 Active 29100570 Problem Anxiety F41.9 Active 81518292 Problem Pain in right knee M25.561 Active 8 1621264 Problem General counseling and advice on female contraception Z30.09 Active 87828369 Problem Social phobia F40.10 Active 829971 02 Problem Relationship problem with family member Z63.8 Active 626332373 Problem Chronic post-traumatic stress disorder (PTSD) F43. 12 Active 132660178 Problem Positive test Z32.01 Active 791552560 ALLERGIES No Information ENCOUNTERS Encounter Location Date Diagnosis [facility] [address] [facility] [id number] [address] [place] [phone] July, [facility] [address] [facility] [id number] [address] [place] [phone] July, [facility] [address] [facility] [id number] [address] [place] [phone] July, [facility] [address] [facility] [id number] [address] [place] [phone] Jun, [facility] [address] [facility] [id number] [address] [place] [phone] Jun, [facility] [address] [place] [id number] [address] [place] [phone] Jun, Third trimester Z3 4.93 and 36 weeks gestation of Z3A.36 [facility] [address] [facility] [id number] [address] [place] [phone] Jun, [facility] [address] [facility] [id number] [address] [place] [phone] Jun, [facility] [address] [place] [id number] [address] [place] [phone] Jun, Third trimester Z3 4.93 ; 35 weeks gestation of Z3A.35 and Palpitations R00.2 [facility] [address] [facility] [id number] [address] [place] [phone] Jun, [facility] [address] [facility] [id number] [address] [place] [phone] May, [facility] [address] [facility] [id number] [address] [place] [phone] May, Third trimester Z3 4.93 ; 33 weeks gestation of Z3A.33 ; Anxiety F41.9 and Encounter for immunization Z23 [facility] [address] [facility] [id number] [address] [place] [phone] 25 May, 2019 [facility] [address] [facility] [id number] [address] [place] [phone] 24 May, 2019 [facility] [address] [facility] [id number] [address] [place] [phone] 20 May, 2019 [facility] [address] [facility] [id number] [address] [place] [phone] 17 May, 2019 [facility] [address] [facility] [id number] [address] [place] [phone] 16 May, 2019 [facility] [address] [facility] [id number] [address] [place] [phone] 16 May, 2019 [facility] [address] [place] [id number] [address] [place] [phone] 12 May, 2019 [place] [address] [place] [id number] [address] [place] [phone] 10 May, 2019 [facility] [address] [facility] [id number] [address] [place] [phone] 10 May, 2019 care, first pregnan cy in third trimester Z34.03 ; 31 weeks gestation of Z3A.31 and Decreased movements in third trimester, single or unspecified fetus O36.8130 [place] [id number] [place] [phone] 06 May, 2019 Fever and chills R50.9 and F mel-like symptoms R68.89 [place] [address] [place] [id number] [address] [place] [phone] 11 Apr, 2019 [place] [address] [place] [id number] [place] [phone] Apr, Second trimester Z 34.92 and 27 weeks gestation of Z3A.27 [place] [address] [place] [id number] [address] [place] [phone] 15 Mar, 2019 Acute non-recurrent maxillar y sinusitis J01.00 and Cough R05 [facility] [address] [id number] [address] [place] [phone] Mar, [facility] [address] [id number] [address] [place] [phone] Mar, [facility] [address] [id number] [address] [place] [phone] Mar, [facility] [address] [id number] [address] [place] [phone] Mar, care in second trim gabo Z34.92 and 23 weeks gestation of Z3A.23 [place] [address] [id number] [address] [place] [phone] Feb, care in second trim gabo Z34.92 and 19 weeks gestation of Z3A.19 [place] [address] [id number] [address] [place] [phone] Feb, [place] [address] [id number] [address] [place] [phone] Feb, care in second trim gabo Z34.92 ; 19 weeks gestation of Z3A.19 and Encounter for immunization Z23 [facility] [address] [id number] [address] [place] [phone] Feb, Dental examination Z01.20 [facility] [address] [id number] [address] [place] [phone] Feb, [place] [address] [id number] [address] [place] [phone] Jan, [place] [address] [facility] [facility] [id number] [address] [place] [phone] Jan, care in second trim gabo Z34.92 and 15 weeks gestation of Z3A.15 [facility] [address] [id number] [address] [place] [phone] Dec, First trimester Z3 4.91 ; 11 weeks gestation of Z3A.11 and Nausea/vomiting in O21.9 [facility] [address] [id number] [address] [place] [phone] Dec, [facility] [address] [id number] [address] [place] [phone] Dec, [facility] [address] [id number] [address] [place] [phone] 14 Dec, 2018 care, first pregnan cy in first trimester Z34.01 [facility] [address] [id number] [address] [place] [phone] Dec, [facility] [address] [id number] [address] [place] [id number] Dec, Chronic post-traumatic stres s disorder (PTSD) F43.12 ; Relationship problem with family member Z63.8 and Positive test Z32.01 [facility] [address] [id number] [address] [place] [phone] Nov, [facility] [address] [id number] [address] [place] [phone] Nov, care, first pregnan cy in first trimester Z34.01 [facility] [address] [id number] [address] [place] [phone] Nov, [facility] [address] [id number] [address] [place] [phone] Nov, care, first pregnan cy in first trimester Z34.01 and 7 weeks gestation of Z3A.01 [facility] [address] [id number] [address] [place] [id number] 24 Nov, 2018 [facility] [address] [id number] [address] [place] [phone] 20 Nov, 2018 [facility] [address] [id number] [address] [place] [phone] 18 Nov, 2018 [facility] [address] [id number] [address] [place] [phone] 13 Nov, 2018 [place] [address] [id number] [address] [place] [phone] 13 Nov, 2018 [place] [address] [facility] [id number] [address] [place] [phone] 13 Nov, 2018 Positive test Z32. 01 ; Well woman exam with routine gynecological exam Z01.419 ; Amenorrhea N91.2 ; , unspecified gestational age Z34.90 ; Encounter for smoking cessation counseling Z71.6 ; Acute vaginitis N76.0 and Other specified bacterial agents as the cause of diseases classified elsewhere B96.89 [place] [address] [facility] [id number] [address] [place] [phone] 11 Nov, 2018 [place] [address] [facility] [facility] [id number] [address] [place] [phone] 11 Nov, 2018 [place] [address] [facility] [id number] [address] [place] [phone] Oct, Bipolar disorder with depres arlen F31.30 [place] [address] [facility] [id number] [address] [place] [phone] Oct, Bipolar disorder with depres arlen F31.30 ; Chronic post-traumatic stress disorder (PTSD) F43.12 and Relationship problem with family member Z63.8 [place] [address] [facility] [id number] [address] [place] [phone] Aug, Bipolar disorder with depres arlen F31.30 ; Chronic post-traumatic stress disorder (PTSD) F43.12 and Relationship problem with family member Z63.8 [place] [address] [facility] [id number] [address] [place] [phone] Mar, Schizoaffective disorder, bi polar type F25.0 ; Social phobia F40.10 ; Chronic post-traumatic stress disorder (PTSD) F43.12 and Relationship problem with family member Z63.8 [facility] [id number] [address] Oct, Pain in right shoulder M25.511 and Bipol ar disorder with depression F31.30 [facility] [address] [facility] [id number] [address] [place] [phone] July, [facility] [address] [facility] [id number] [address] [place] [phone] July, [facility] [address] [facility] [id number] [address] [place] [phone] July, Well woman exam Z01.419 and Vaginal discharge N89.8 [facility] [address] [facility] [id number] [address] [place] [phone] Jun, [facility] [address] [facility] [id number] [address] [place] [phone] Mar, [facility] [address] [facility] [id number] [address] [place] [phone] May, Bipolar disorder, unspecifie d F31.9 [facility] [address] [facility] [id number] [address] [place] [phone] May, Bipolar disorder, unspecifie d F31.9 ; Attention deficit hyperactivity disorder (ADHD), combined type F90.2 and Schizoaffective disorder F25.9 [facility] [address] [facility] [id number] [address] [place] [phone] 09 May, 2016 Bipolar disorder with depres arlen F31.30 [facility] [address] [facility] [id number] [address] [place] [phone] 08 May, 2016 Bipolar disorder, unspecifie d F31.9 ; Attention deficit hyperactivity disorder (ADHD), combined type F90.2 and Schizoaffective disorder F25.9 [facility] [address] [facility] [id number] [address] [place] [phone] Apr, Seasonal allergic rhinitis d ue to pollen J30.1 [facility] [address] [facility] [id number] [address] [place] [phone] Apr, [facility] [address] [facility] [id number] [address] [place] [phone] Mar, Attention deficit disorder ( ADD) without 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 ; Bipolar disorder with depression F31.30 and Generalized anxiety disorder F41.1 [facility] [address] [facility] [id number] [address] [place] [phone] Mar, [facility] [address] [facility] [id number] [address] [place] [phone] Feb, Unspecified mood [affective] disorder F39 [facility] [address] [facility] [id number] [address] [place] [phone] Feb, Unspecified mood [affective] disorder F39 [facility] [address] [facility] [id number] [address] [place] [phone] Feb, [facility] [address] [place] [id number] [address] [place] [phone] Jan, Amenorrhea N91.2 ; Vitamin D deficiency E55.9 and Iron deficiency anemia due to chronic blood loss D50.0 [facility] [address] [facility] [id number] [address] [place] [phone] Jan, Encounter for test Z32.00 [facility] [address] [facility] [id number] [address] [place] [phone] Dec, Unspecified mood [affective] disorder F39 ; Bipolar disorder, unspecified F31.9 and Attention deficit hyperactivity disorder (ADHD), combined type F90.2 [facility] [address] [facility] [id number] [address] [place] [phone] Nov, [facility] [address] [facility] [id number] [address] [place] [phone] Nov, [facility] [address] [facility] [id number] [address] [place] [phone] Nov, [facility] [address] [facility] [id number] [address] [place] [phone] Nov, [facility] [address] [id number] [address] [place] [phone] Nov, [facility] [address] [facility] [id number] [address] [place] [phone] Nov, Dysuria R30.0 [facility] [address] [id number] [address] [place] [phone] Oct, [facility] [address] [facility] [id number] [address] [place] [phone] Oct, [facility] [address] [id number] [address] [place] [phone] Sep, [facility] [address] [facility] [id number] [address] [place] [phone] Sep, Bipolar disorder, unspecifie d F31.9 and Schizoaffective disorder F25.9 [facility] [address] [facility] [id number] [address] [place] [phone] Sep, [facility] [address] [facility] [id number] [address] [place] [phone] Aug, Unspecified mood [affective] disorder F39 [facility] [address] [facility] [id number] [address] [place] [phone] Aug, [facility] [address] [facility] [id number] [address] [place] [phone] Aug, General counseling and advic e on female contraception Z30.09 and Iron deficiency anemia due to chronic blood loss D50.0 [facility] [address] [facility] [id number] [address] [place] [phone] July, 2016 Routine gynecological examin ation Z01.419 ; General counseling and advice on female contraception Z30.09 ; High risk medication use Z79.899 ; Other specified bacterial agents as the cause of diseases classified elsewhere B96.89 and Acute vaginitis N76.0 [facility] [address] [facility] [id number] [address] [place] [phone] July, Attention deficit hyperactiv ity disorder (ADHD), combined type F90.2 ; Bipolar disorder, unspecified F31.9 and Schizoaffective disorder F25.9 [place] [address] [facility] [id number] [address] [place] [phone] July, Unspecified mood [affective] disorder F39 [place] [address] [facility] [facility] [id number] [address] [place] [phone] July, [place] [address] [facility] [address] [facility] [id number] [address] [place] [phone] July, [place] [address] [facility] [facility] [id number] [address] [place] [phone] July, Low hemoglobin D64.9 [place] [address] [facility] [address] [facility] [id number] [address] [place] [phone] July, [place] [address] [place] [id number] [address] [place] [phone] July, General counselling and advi ce on contraception Z30.09 ; Pain in left knee M25.562 ; Pain in right knee M25.561 ; Chronic fatigue R53.82 and Vitamin D deficiency E55.9 [place] [address] [facility] [facility] [id number] [address] [place] [phone] Jun, Fatigue R53.83 [place] [address] [facility] [address] [facility] [id number] [address] [place] [phone] Jun, Fatigue R53.83 ; Low hemoglo bin D64.9 ; Long-term use of high-risk medication Z79.899 ; Sore throat J02.9 and Fever, low grade R50.9 [place] [address] [facility] [address] [facility] [id number] [address] [place] [phone] Jun, Unspecified mood [affective] disorder F39 [place] [address] [facility] [id number] [address] [place] [phone] May, Unspecified mood [affective] disorder F39 [place] [address] [facility] [facility] [id number] [address] [place] [phone] May, [facility] [address] [id number] [address] [place] [phone] May, Attention deficit hyperactiv ity disorder (ADHD), combined type F90.2 ; Bipolar disorder, unspecified F31.9 and Schizoaffective disorder F25.9 [facility] [address] [id number] [address] [place] [phone] May, [facility] [address] [id number] [address] [place] [phone] Apr, [facility] [address] [facility] [id number] [address] [place] [phone] Apr, [facility] [address] [facility] [id number] [address] [place] [phone] Apr, [facility] [address] [facility] [id number] [address] [place] [phone] Apr, [facility] [address] [id number] [place] [id number] Apr, Ingestion of unknown drug T5 0.901A [facility] [address] [id number] [address] [place] [phone] Apr, [facility] [address] [facility] [id number] [address] [place] [phone] Apr, Unspecified mood [affective] disorder F39 [facility] [address] [id number] [address] [place] [phone] 16 Apr, 2015 Unspecified mood [affective] disorder F39 [facility] [address] [facility] [id number] [address] [place] [id number] 11 Apr, 2015 Unspecified mood [affective] disorder F39 [facility] [address] [facility] [facility] [id number] [address] [place] [id number] 03 Apr, 2015 jail use of drug Z79.89 9 ; Attention deficit hyperactivity disorder (ADHD), combined type F90.2 ; Bipolar disorder, unspecified F31.9 and Schizoaffective disorder F25.9 [facility] [address] [id number] [address] [place] [id number] Mar, Unspecified mood [affective] disorder F39 [facility] [address] [id number] [place] [id number] Mar, Menstrual period late N91.0 and High risk sexual behavior Z72.51 [facility] [address] [id number] [address] [place] [id number] Mar, Unspecified mood [affective] disorder F39 [facility] [address] [id number] [address] [place] [id number] Mar, Unspecified mood [affective] disorder F39 [facility] [address] [id number] [address] [place] [id number] Mar, Unspecified mood [affective] disorder [address] [id number] [address] [place] [id number] Feb, [facility] [address] [id number] [address] [place] [id number] Feb, Attention deficit hyperactiv ity disorder (ADHD), combined type F90.2 ; Episodic mood disorder 296.90 and Bipolar disorder, unspecified F31.9 [facility] [address] [id number] [address] [place] [id number] Feb, Major depressive disorder, r ecurrent, moderate F33.1 [facility] [address] [id number] [address] [place] [id number] Feb, Unspecified mood [affective] disorder F39 [facility] [address] [id number] [address] [place] [address] [address] Feb, Unspecified mood [affective] disorder F39 [facility] [address] [id number] [address] [place] [id number] Feb, [facility] [address] [id number] [address] [place] [address] Feb, Unspecified mood [affective] disorder F39 [facility] [address] [id number] [address] [place] [address] Feb, Bipolar disorder, unspecifie d F31.9 [facility] [address] [id number] [address] [place] [id number] Jan, [facility] [address] [id number] [address] [place] [id number] Jan, Unspecified mood [affective] disorder F39 [facility] [address] [id number] [address] [place] [address] Jan, Unspecified mood [affective] disorder F39 [facility] [address] [id number] [address] [place] [address] Jan, Bipolar disorder, unspecifie d F31.9 [facility] [address] [id number] [address] [place] [address] Jan, Attention deficit hyperactiv ity disorder (ADHD), combined type F90.2 and Bipolar disorder, unspecified F31.9 [facility] [address] [id number] [address] [place] [address] Jan, [facility] [address] [id number] [address] [place] [address] Jan, [facility] [address] [id number] [address] [place] [address] Jan, Unspecified mood [affective] disorder F39 [facility] [address] [id number] [address] [place] [address] Dec, Unspecified mood [affective] disorder F39 [facility] [address] [id number] [address] [place] [address] Dec, Unspecified mood [affective] disorder F39 [facility] [address] [id number] [address] [place] [address] Dec, Unspecified mood [affective] disorder F39 [facility] [address] [id number] [address] [place] [address] Dec, [facility] [address] [id number] [address] [place] [id number] Dec, Viral upper respiratory trac t infection J06.9 ; Encounter for immunization Z23 and Smoker F17.200 [facility] [address] [id number] [address] [place] [id number] Dec, [facility] [id number] [place] [address] Dec, Schizoaffective disorder F25 .9 and Attention deficit hyperactivity disorder (ADHD), combined type F90.2 [facility] [address] [id number] [address] [place] [address] Nov, [facility] [address] [id number] [address] [place] [address] Nov, Unspecified mood [affective] disorder F39 [facility] [id number] [place] [address] Nov, Schizoaffective disorder, un specified 295.70 ; Generalized anxiety disorder 300.02 and Attention deficit disorder of childhood with hyperactivity 314.01 [facility] [address] [id number] [address] [place] [address] Oct, [facility] [address] [id number] [address] [place] [phone] Oct, [facility] [address] [id number] [address] [place] [id number] Oct, [facility] [address] [id number] [address] [place] [address] Oct, Affective disorder 296.90 [facility] [address] [id number] [address] [place] [id number] Oct, Screen for STD (sexually tra nsmitted disease) V74.5 and Encounter for counseling regarding contraception V25.09 [facility] [address] [id number] [address] [place] [address] Sep, [facility] [address] [id number] [address] [place] [address] Sep, [facility] [address] [id number] [address] [place] [id number] Sep, Episodic mood disorder 296.9 0 [facility] [address] [id number] [address] [place] [id number] Sep, [facility] [address] [id number] [address] [place] [address] Sep, [facility] [address] [facility] [id number] [address] [place] [address] Aug, [facility] [address] [facility] [facility] [id number] [address] [place] [id number] Aug, [facility] [address] [id number] [address] [place] [address] Aug, [facility] [address] [facility] [address] [facility] [id number] [address] [place] [id number] Aug, Episodic mood disorder 296.9 0 [facility] [address] [id number] [address] [place] [address] Aug, [facility] [address] [facility] [facility] [id number] [address] [place] [address] July, Allergic rhinitis 477.9 [facility] [address] [id number] [address] [place] [address] July, Schizoaffective disorder, un specified 295.70 [facility] [address] [id number] [address] [place] [address] July, [facility] [address] [facility] [address] [facility] [id number] [address] [place] [id number] 14 Jun, 2014 [facility] [address] [id number] [address] [place] [address], [place] [address] 13 Jun, 2014 [facility] [address] [id number] [address] [place] [address], [place] [address] 24 May, 2014 [facility] [address] [id number] [address] [place] [address], [place] [address] 24 May, 2014 [facility] [address] [id number] [address] [place] [address], [place] [address] 18 May, 2014 [facility] [address] [id number] [address] [place] [address], [place] [address] 18 May, 2014 [facility] [address] [id number] [address] [place] [address], [place] [address] 20 Apr, 2014 [facility] [address] [id number] [address] [place] [address], [place] [address] Apr, [facility] [address] [id number] [address] [place] [address], [place] [address] Apr, [facility] [address] [id number] [address] [place] [address], [place] [address] Apr, [facility] [address] [id number] [address] [place] [address], [place] [address] 18 Apr, 2014 [facility] [address] [id number] [address] [place] [address], [place] [address] 18 Apr, 2014 [facility] [address] [id number] [address] [place] [address], [place] [address] Apr, [facility] [address] [id number] [address] [place] [address], [place] [address] Apr, [facility] [address] [id number] [address] [place] [address], [place] [address] Mar, [facility] [address] [id number] [address] [place] [address], [place] [address] Mar, [facility] [address] [id number] [address] [place] [address], [place] [address] 08 Mar, 2014 [facility] [address] [id number] [address] [place] [address], [place] [address] 08 Mar, 2014 [facility] [address] [id number] [address] [place] [address], [place] [address] Feb, [facility] [address] [id number] [address] [place] [address], [place] [address] Feb, [facility] [address] [id number] [address] [place] [address], [place] [address] Feb, [facility] [address] [id number] [address] [place] [address], [place] [address] Feb, [facility] [address] [id number] [address] [place] [address], [place] [address] Feb, [facility] [address] [id number] [address] [place] [address], [place] [address] Feb, [facility] [address] [id number] [address] [place] [address], [place] [address] Feb, [facility] [address] [id number] [address] [place] [address], [place] [address] Feb, [facility] [address] [id number] [address] [place] [address], [place] [address] Feb, [facility] [address] [id number] [address] [place] [address], [place] [address] Feb, [facility] [address] [id number] [address] [place] [address], [place] [address] Feb, [facility] [address] [id number] [address] [place] [address], [place] [address] Jan, [facility] [address] [id number] [address] [place] [address], [place] [address] Jan, [facility] [address] [id number] [address] [place] [address], [place] [address] Dec, [facility] [address] [id number] [address] [place] [address], [place] [address] Dec, [facility] [address] [id number] [address] [place] [address], [place] [address] Dec, [facility] [address] [id number] [address] [place] [address], [place] [address] Dec, [facility] [address] [id number] [address] [place] [address], [place] [address] Dec, [facility] [address] [id number] [address] [place] [address], [place] [address] Dec, [facility] [address] [id number] [address] [place] [address] Dec, [facility] [address] [id number] [address] [place] [address], [place] [address] Dec, [facility] [address] [id number] [address] [place] [address] Dec, [facility] [address] [id number] [address] [place] [address] Dec, [facility] [address] [id number] [address] [place] [address] Dec, [facility] [address] [id number] [address] [place] [address] Dec, [facility] [address] [id number] [address] [place] [address] Dec, [facility] [address] [id number] [address] [place] [address] Dec, [facility] [address] [id number] [address] [place] [id number] Dec, [facility] [address] [id number] [address] [place] [address] Dec, [facility] [address] [id number] [address] [place] [address], [place] [address] 08 Dec, 2013 [facility] [address] [id number] [address] [place] [address], [place] [address] 08 Dec, 2013 [facility] [address] [id number] [address] [place] [address], [place] [address] Dec, [facility] [address] [id number] [address] [place] [address], [place] [address] Dec, 2013 [facility] [address] [id number] [address] [place] [address], [place] [address] Dec, [facility] [address] [id number] [address] [place] [address], [place] [address] Dec, [facility] [address] [id number] [address] [place] [address], [place] [address] Dec, [facility] [address] [id number] [address] [place] [address], [place] [address] Dec, [facility] [address] [id number] [address] [place] [address], [place] [address] 22 Sep, 2013 [facility] [address] [id number] [address] [place] [address], [place] [address] 22 Sep, 2013 [facility] [address] [id number] [address] [place] [address], [place] [address] 22 Sep, 2013 [facility] [address] [id number] [address] [place] [address], [place] [address] 22 Sep, 2013 [facility] [address] [id number] [address] [place] [address], [place] [address] 22 Sep, 2013 [facility] [address] [id number] [address] [place] [address], [place] [address] 22 Nov, 2013 [facility] [address] [id number] [address] [place] [address], [place] [address] 17 Sep, 2013 [facility] [address] [id number] [address] [place] [address], [place] [address] 17 Nov, 2013 [facility] [address] [id number] [facility] [place] [address] 15 Nov, 2013 [facility] [address] [id number] [facility] [place] [address] 15 Nov, 2013 [facility] [address] [id number] [facility] [place] [address] Nov, [facility] [address] [id number] [address] [place] [address], [place] [address] Nov, [facility] [address] [id number] [address] [place] [address], [place] [address] Nov, [facility] [address] [id number] [address] [place] [address], [place] [address] Nov, [facility] [address] [id number] [address] [place] [address], [place] [address] Oct, [facility] [address] [id number] [address] [place] [address], [place] [address] Oct, [facility] [address] [id number] [address] [place] [address], [place] [address] Oct, [facility] [address] [id number] [address] [place] [address], [place] [address] Oct, [facility] [address] [id number] [address] [place] [address], [place] [address] Oct, [facility] [address] [id number] [address] [place] [address], [place] [address] Oct, [facility] [address] [id number] [address] [place] [address], [place] [address] Oct, [facility] [address] [id number] [address] [place] [address], [place] [address] Oct, [facility] [address] [id number] [address] [place] [address], [place] [address] Sep, [facility] [address] [id number] [address] [place] [address], [place] [address] Sep, [facility] [address] [id number] [address] [place] [address], [place] [address] Sep, [facility] [address] [id number] [address] [place] [address], [place] [address] Sep, [facility] [address] [id number] [address] [place] [address], [place] [address] Sep, [facility] [address] [id number] [address] [place] [address], [place] [address] Sep, [facility] [address] [id number] [address] [place] [address], [place] [address] Aug, [facility] [address] [id number] [address] [place] [address], [place] [address] Aug, [facility] [address] [id number] [address] [place] [address], [place] [address] July, [facility] [address] [id number] [address] [place] [address], [place] [address] July, [facility] [address] [id number] [address] [place] [address], [place] [address] July, [facility] [address] [id number] [address] [place] [address], [place] [address] July, [facility] [address] [id number] [address] [place] [address], [place] [address] July, [facility] [address] [id number] [address] [place] [address], [place] [address] July, [facility] [address] [id number] [address] [place] [address], [place] [address] July, [facility] [address] [id number] [address] [place] [address], [place] [address] July, [facility] [address] [id number] [address] [place] [address], [place] [address] July, [facility] [address] [id number] [facility] [place] [address] July, [facility] [address] [id number] [address] [place] [address], [place] [address] July, [facility] [address] [id number] [address] [place] [address], [place] [address] July, [facility] [address] [id number] [address] [place] [address], [place] [address] July, [facility] [address] [id number] [address] [place] [address], [place] [address] July, [facility] [address] [id number] [address] [place] [address], [place] [address] July, [facility] [address] [id number] [address] [place] [address], [place] [address] July, [facility] [address] [id number] [address] [place] [address], [place] [address] July, [facility] [address] [id number] [address] [place] [address], [place] [address] July, [facility] [address] [id number] [address] [place] [address], [place] [address] Jun, [facility] [address] [id number] [address] [place] [address], [place] [address] Jun, [facility] [address] [id number] [address] [place] [address], [place] [address] Jun, [facility] [address] [id number] [address] [place] [address], [place] [address] Jun, [facility] [address] [id number] [address] [place] [address], [place] [address] Jun, [facility] [address] [id number] [address] [place] [address], [place] [address] Jun, [facility] [address] [id number] [address] [place] [address], [place] [address] Jun, [facility] [address] [id number] [facility] [place] [address] Jun, [facility] [address] [id number] [address] [place] [address], [place] [address] Jun, [facility] [address] [id number] [address] [place] [address], [place] [address] Jun, [facility] [address] [id number] [address] [place] [address], [place] [address] Jun, [facility] [address] [id number] [address] [place] [address], [place] [address] Jun, [facility] [address] [id number] [address] [place] [address], [place] [address] May, [facility] [address] [id number] [address] [place] [address], [place] [address] May, [facility] [address] [id number] [address] [place] [address], [place] [address] May, [facility] [address] [id number] [address] [place] [address], [place] [address] May, [facility] [address] [id number] [address] [place] [address], [place] [address] May, [facility] [address] [id number] [address] [place] [address], [place] [address] May, [facility] [address] [id number] [address] [place] [address], [place] [address] May, [facility] [address] [id number] [address] [place] [address], [place] [address] May, [facility] [address] [id number] [address] [place] [address], [place] [address] May, [facility] [address] [id number] [address] [place] [address], [place] [address] May, [facility] [address] [id number] [address] [place] [address], [place] [address] Apr, [facility] [address] [id number] [address] [place] [address], [place] [address] Apr, [facility] [address] [id number] [address] [place] [address], [place] [address] Apr, [facility] [address] [id number] [address] [place] [address], [place] [address] Apr, [facility] [address] [id number] [address] [place] [address], [place] [address] Apr, [facility] [address] [id number] [address] [place] [address], [place] [address] Apr, [facility] [address] [id number] [address] [place] [address], [place] [address] Apr, [facility] [address] [id number] [address] [place] [address], [place] [address] Apr, [facility] [address] [id number] [address] [place] [address], [place] [address] Apr, [facility] [address] [id number] [address] [place] [address], [place] [address] Apr, [facility] [address] [id number] [address] [place] [address], [place] [address] Apr, [facility] [address] [id number] [address] [place] [address], [place] [address] Apr, [facility] [address] [id number] [address] [place] [address], [place] [address] Apr, [facility] [address] [id number] [address] [place] [address], [place] [address] Apr, [facility] [address] [id number] [address] [place] [address], [place] [address] Mar, [facility] [address] [id number] [address] [place] [address], [place] [address] Mar, [facility] [address] [id number] [address] [place] [address], [place] [address] Mar, [facility] [address] [id number] [address] [place] [address], [place] [address] Mar, [facility] [address] [id number] [address] [place] [address], [place] [address] Mar, [facility] [address] [id number] [address] [place] [address], [place] [address] Mar, [facility] [address] [id number] [address] [place] [address], [place] [address] Mar, [facility] [address] [id number] [address] [place] [address], [place] [address] Mar, [facility] [address] [id number] [address] [place] [address], [place] [address] Mar, [facility] [address] [id number] [address] [place] [address], [place] [address] Mar, [facility] [address] [id number] [address] [place] [address], [place] [address] Mar, [facility] [address] [id number] [address] [place] [address], [place] [address] Mar, [facility] [address] [id number] [address] [place] [address], [place] [address] Feb, [facility] [address] [id number] [address] [place] [address], [place] [address] Feb, [facility] [address] [id number] [address] [place] [address], [place] [address] Feb, [facility] [address] [id number] [address] [place] [address], [place] [address] Feb, [facility] [address] [id number] [address] [place] [address], [place] [address] Feb, [facility] [address] [id number] [address] [place] [address], [place] [address] 09 Feb, 2013 [facility] [address] [id number] [address] [place] [address], [place] [address] Feb, 2012 [facility] [address] [id number] [address] [place] [address], [place] [address] Feb, [facility] [address] [id number] [address] [place] [address], [place] [address] 05 Feb, 2013 [facility] [address] [id number] [address] [place] [address], [place] [address] Feb, [facility] [address] [id number] [address] [place] [address], [place] [address] Feb, [facility] [facility] [address] [id number] [address] [place] [address], [place] [address] Jan, [facility] [address] [id number] [address] [place] [address], [place] [address] Jan, [facility] [address] [id number] [address] [place] [address], [place] [address] Jan, [facility] [address] [id number] [address] [place] [address], [place] [address] Jan, [facility] [address] [id number] [address] [place] [address], [place] [address] Jan, [facility] [address] [id number] [address] [place] [address], [place] [address] Jan, [facility] [address] [id number] [address] [place] [address], [place] [address] Jan, [facility] [address] [id number] [address] [place] [address], [place] [address] Dec, [facility] [address] [id number] [address] [place] [address], [place] [address] Dec, [facility] [address] [id number] [address] [place] [address], [place] [address] Dec, [facility] [address] [id number] [address] [place] [address], [place] [address] Dec, [facility] [address] [id number] [address] [place] [address], [place] [address] Dec, [facility] [address] [id number] [address] [place] [address], [place] [address] Nov, [facility] [address] [id number] [address] [place] [address], [place] [address] Oct, [facility] [address] [id number] [address] [place] [address], [place] [address] Oct, [facility] [address] [id number] [address] [place] [address], [place] [address] Oct, [facility] [address] [id number] [address] [place] [address], [place] [address] Oct, [facility] [address] [id number] [address] [place] [address], [place] [address] Oct, [facility] [address] [id number] [address] [place] [address], [place] [address] Sep, [facility] [address] [id number] [address] [place] [address], [place] [address] Sep, [facility] [address] [id number] [address] [place] [address], [place] [address] Sep, [facility] [address] [id number] [address] [place] [address], [place] [address] Sep, [facility] [address] [id number] [address] [place] [address], [place] [address] Aug, [facility] [address] [id number] [address] [place] [address], [place] [address] Aug, [facility] [address] [id number] [address] [place] [address], [place] [address] Aug, [facility] [address] [id number] [address] [place] [address], [place] [address] Aug, [facility] [address] [id number] [address] [place] [address], [place] [address] Aug, [facility] [address] [id number] [address] [place] [address], [place] [address] July, [facility] [address] [id number] [address] [place] [address], [place] [address] July, [facility] [address] [id number] [address] [place] [address], [place] [address] July, [facility] [address] [id number] [address] [place] [address], [place] [address] July, [facility] [address] [id number] [address] [place] [address], [place] [address] Jun, [facility] [address] [id number] [address] [place] [address], [place] [address] Jun, [facility] [address] [id number] [address] [place] [address], [place] [address] May, [facility] [address] [id number] [address] [place] [address], [place] [address] May, [facility] [address] [id number] [address] [place] [address], [place] [address] Apr, [facility] [address] [id number] [address] [place] [address], [place] [address] Apr, [facility] [address] [id number] [address] [place] [address], [place] [address] Mar, [facility] [address] [id number] [address] [place] [address], [place] [address] Mar, [facility] [address] [id number] [address] [place] [address], [place] [address] Feb, [facility] [address] [id number] [address] [place] [address], [place] [address] Feb, [facility] [address] [id number] [address] [place] [address], [place] [address] 18 Feb, 2012 [facility] [address] [id number] [address] [place] [address], [place] [address] Feb, [facility] [address] [id number] [address] [place] [address], [place] [address] Feb, [facility] [address] [id number] [address] [place] [address], [place] [address] Feb, [facility] [address] [id number] [address] [place] [address], [place] [address] Jan, [facility] [address] [id number] [address] [place] [address], [place] [address] Jan, [facility] [address] [id number] [address] [place] [address], [place] [address] Jan, [facility] [address] [id number] [address] [place] [address], [place] [address] Jan, [facility] [address] [id number] [address] [place] [address], [place] [address] Dec, [facility] [address] [id number] [address] [place] [address], [place] [address] Dec, [facility] [address] [id number] [address] [place] [address], [place] [address] Nov, [facility] [address] [id number] [address] [place] [address], [place] [address] Nov, [facility] [address] [id number] [address] [place] [address], [place] [address] Nov, [facility] [address] [id number] [address] [place] [address], [place] [address] Oct, [facility] [address] [id number] [address] [place] [address], [place] [address] Sep, [facility] [address] [id number] [address] [place] [address], [place] [address] Aug, [facility] [address] [id number] [address] [place] [address], [place] [address] July, [facility] [address] [id number] [address] [place] [address], [place] [address] July, [facility] [address] [id number] [address] [place] [address], [place] [address] July, [facility] [address] [id number] [address] [place] [address], [place] [address] July, [facility] [address] [id number] [address] [place] [address], [place] [address] July, [facility] [address] [id number] [address] [place] [address], [place] [address] Jun, [facility] [address] [id number] [address] [place] [address], [place] [address] May, [facility] [address] [id number] [address] [place] [address], [place] [address] May, [facility] [address] [id number] [address] [place] [address], [place] [address] May, [facility] [address] [id number] [address] [place] [address], [place] [address] Apr, [facility] [address] [id number] [address] [place] [address], [place] [address] Apr, [facility] [address] [id number] [address] [place] [address], [place] [address] Mar, [facility] [address] [id number] [address] [place] [address], [place] [address] Feb, [facility] [address] [id number] [address] [place] [address], [place] [address] Feb, [facility] [address] [id number] [address] [place] [address], [place] [address] Feb, [facility] [address] [id number] [address] [place] [id number] 15 Feb, 2011 [facility] [address] [id number] [address] [place] [address] 14 Feb, 2011 [facility] [address] [id number] [address] [place] [id number] 14 Feb, 2011 [facility] [address] [id number] [address] [place] [id number] 14 Feb, 2011 [facility] [address] [id number] [address] [place] [id number] 29 Jan, 2011 [facility] [address] [id number] [address] [place] [address] Jan, [facility] [address] [id number] [address] [place] [address] Jan, [facility] [address] [id number] [address] [place] [id number] 15 Aug, 2010 [facility] [address] [id number] [address] [place] [id number] 30 Feb, 2010 [facility] [address] [id number] [address] [place] [id number] 21 Feb, 2010 [facility] [address] [id number] [address] [place] [id number] 02 Feb, 2010 [facility] [address] [id number] [address] [place] [id number] 28 Dec, 2009 [facility] [address] [id number] [address] [place] [id number] 13 Jun, 2009 [facility] [address] [id number] [address] [place] [id number] 26 Dec, 2008 [facility] [address] [id number] [address] [place] [id number] 16 Sep, 2007 IMMUNIZATIONS No Known Immunizations SOCIAL HISTORY Never Assessed REASON FOR VISIT PLAN OF CARE VITAL SIGNS MEDICATIONS Unknown Medications RESULTS No Results PROCEDURES Procedure Date Ordered Result Body Site COMPREHENSIVE CARE MANAGEMENT - OCK Dec 08, 2013 INSTRUCTIONS MEDICATIONS ADMINISTERED No Known Medications MEDICAL [...] History Meniscus Repair Left Knee Hospitalization History [facility] Mental Breakdown 05/22 15 Hospitalization History Overdose [facility] 07/17/15 Hospitalization History Overdose 01/2018
--- OUTSIDE RECORDS SUMMARY | 2019-07-15 19:43 | XMS REPORT ---
Author Author Shan SAMANO Organization [facility] Address [address] [place] [address] Care Team Providers Care Wind Project Manager Name Role Phone GWENDOLYN SAMANO Unavailable PROBLEMS Type Condition ICD9-CM Code WPU23-CK Code Onset Dates Condition S tatus SNOMED Code Problem Low hemoglobin D64.9 Active 12592 7008 Problem Long-term use of high-risk medication Z79.899 Active 024830881 Problem Pain in left knee M25.562 Active 30 914789 Problem Chronic fatigue R53.82 Active 5270 2003 Problem Seasonal allergic rhinitis due to pollen J30.1 Active 63012110 Problem Bipolar disorder with depression F31.30 Active 69906183 Problem Routine gynecological examination Z01.419 Active 670319144 Problem High risk medication use Z79.899 Activ e 274381241 Problem Unspecified mood [affective] disorder F39 Active 314503818 Problem Iron deficiency anemia due to chronic blood loss D 50.0 Active 59302447 Problem Attention deficit hyperactivity disorder (ADHD), combi cosmo type F90.2 Active 891867738 Problem Bipolar disorder, unspecified F31.9 Active 01126780 Problem Generalized anxiety disorder F41.1 A ctive 27019140 Problem Amenorrhea N91.2 Active 35923467 Problem Schizoaffective disorder F25.9 Activ e 90108635 Problem Well woman exam Z01.419 Active 3103 41221 Problem Schizoaffective disorder, bipolar type F25.0 Active 68492136 Problem care, first in first trimester Z34.01 Active 394959281 Problem Vitamin D deficiency E55.9 Active 88052830 Problem Anxiety F41.9 Active 55736523 Problem Pain in right knee M25.561 Active 8 5691628 Problem General counseling and advice on female contraception Z30.09 Active 14091965 Problem Social phobia F40.10 Active 378743 02 Problem Relationship problem with family member Z63.8 Active 797771935 Problem Chronic post-traumatic stress disorder (PTSD) F43. 12 Active 445426848 Problem Positive test Z32.01 Active 056679165 ALLERGIES No Information ENCOUNTERS Encounter Location Date Diagnosis [facility] [address] [id number] [address] [place] [id number] July, [facility] [address] [id number] [address] [place] [address] July, [facility] [address] [id number] [address] [place] [address] July, [facility] [address] [id number] [address] [place] [address] Jun, [facility] [address] [id number] [address] [place] [address] Jun, [facility] [address] [id number] [address] [place] [address] Jun, care in third trime ster Z34.93 and 37 weeks gestation of Z3A.37 [facility] [address] [id number] [address] [place] [address] Jun, [facility] [address] [id number] [address] [place] [address] Jun, Third trimester Z3 4.93 and 36 weeks gestation of Z3A.36 [facility] [address] [id number] [address] [place] [phone] Jun, [facility] [address] [id number] [address] [place] [address] Jun, Third trimester Z3 4.93 ; 35 weeks gestation of Z3A.35 and Palpitations R00.2 [facility] [address] [id number] [address] [place] [address] Jun, [facility] [address] [id number] [address] [place] [address] May, [facility] [address] [place] [id number] [address] [place] [address] 26 May, 2019 Third trimester Z3 4.93 ; 33 weeks gestation of Z3A.33 ; Anxiety F41.9 and Encounter for immunization Z23 [facility] [address] [place] [id number] [address] [place] [address] 25 May, 2019 [facility] [address] [address] 24 May, 2019 [facility] [address] [id number] 20 May, 2019 [facility] [address] [id number] 17 May, 2019 [facility] [address] [address] May, [facility] [address] [id number] 16 May, 2019 [facility] [address] [address] 12 May, 2019 [facility] [address] [id number] 10 May, 2019 [facility] [address] [place] [id number] [address] [place] [address] 10 May, 2019 care, first pregnan cy in third trimester Z34.03 ; 31 weeks gestation of Z3A.31 and Decreased movements in third trimester, single or unspecified fetus O36.8130 [facility] [address] [place] [id number] [address] [place] [address] 06 May, 2019 Fever and chills R50.9 and F mel-like symptoms R68.89 [place] [address] [place] [id number] [address] [place] [id number] 11 Apr, 2019 [facility] [address] [address] 11 Apr, 2019 Second trimester Z 34.92 and 27 weeks gestation of Z3A.27 [facility] [address] [id number] [address] [place] [phone] 15 Mar, 2019 Acute non-recurrent maxillar y sinusitis J01.00 and Cough R05 [facility] [address] [id number] [address] [place] [id number] 15 Mar, 2019 [place] [address] [id number] [address] [place] [phone] Mar, [facility] [address] [id number] [address] [place] [address] Mar, [place] [address] [id number] [address] [place] [address] Mar, care in second trim gabo Z34.92 and 23 weeks gestation of Z3A.23 [place] [address] [id number] [address] [place] [address] Feb, care in second trim gabo Z34.92 and 19 weeks gestation of Z3A.19 [place] [address] [id number] [address] [place] [address] Feb, [place] [address] [id number] [address] [place] [address] Feb, care in second trim gabo Z34.92 ; 19 weeks gestation of Z3A.19 and Encounter for immunization Z23 [place] [address] [id number] [address] [place] [address] Feb, Dental examination Z01.20 [place] [address] [id number] [address] [place] [address] Feb, [place] [address] [id number] [address] [place] [address] Jan, [place] [address] [id number] [address] [place] [address] Jan, care in second trim gabo Z34.92 and 15 weeks gestation of Z3A.15 [facility] [address] [id number] [address] [place] [address] Dec, First trimester Z3 4.91 ; 11 weeks gestation of Z3A.11 and Nausea/vomiting in O21.9 [facility] [address] [id number] [address] [place] [address] Dec, [facility] [address] [id number] [address] [place] [address] Dec, [facility] [address] [id number] [address] [place] [address] Dec, care, first pregnan cy in first trimester Z34.01 [place] [address] [id number] [address] [place] [address] Dec, [place] [address] [id number] [address] [place] [address] Dec, Chronic post-traumatic stres s disorder (PTSD) F43.12 ; Relationship problem with family member Z63.8 and Positive test Z32.01 [place] [address] [facility] [id number] [address] [place] [address] Nov, [facility] [address] [id number] [address] [place] [address] Nov, care, first pregnan cy in first trimester Z34.01 [facility] [address] [id number] [address] [place] [address] Nov, [facility] [address] [id number] [address] [place] [address] Nov, care, first pregnan cy in first trimester Z34.01 and 7 weeks gestation of Z3A.01 [facility] [address] [id number] [address] [place] [address] 24 Nov, 2018 [facility] [address] [id number] [address] [place] [phone] Nov, [facility] [address] [id number] [address] [place] [address] 18 Nov, 2018 [facility] [address] [id number] [address] [place] [address] Nov, [facility] [address] [id number] [address] [place] [address] Nov, [place] [address] [id number] [address] [place] [address] Nov, Positive test Z32. 01 ; Well woman exam with routine gynecological exam Z01.419 ; Amenorrhea N91.2 ; , unspecified gestational age Z34.90 ; Encounter for smoking cessation counseling Z71.6 ; Acute vaginitis N76.0 and Other specified bacterial agents as the cause of diseases classified elsewhere B96.89 [place] [address] [id number] [address] [place] [address] Nov, [place] [address] [id number] [address] [place] [address] Nov, [place] [address] [id number] [address] [place] [address] Oct, Bipolar disorder with depres arlen F31.30 [place] [address] [id number] [address] [place] [address] Oct, Bipolar disorder with depres arlen F31.30 ; Chronic post-traumatic stress disorder (PTSD) F43.12 and Relationship problem with family member Z63.8 [place] [address] [id number] [address] [place] [address] Aug, Bipolar disorder with depres arlen F31.30 ; Chronic post-traumatic stress disorder (PTSD) F43.12 and Relationship problem with family member Z63.8 [place] [address] [id number] [address] [place] [address] Mar, Schizoaffective disorder, bi polar type F25.0 ; Social phobia F40.10 ; Chronic post-traumatic stress disorder (PTSD) F43.12 and Relationship problem with family member Z63.8 [facility] Anson GLOVERE [id number] [place] [address] Oct, Pain in right shoulder M25.511 and Bipol ar disorder with depression F31.30 [facility] [address] [id number] [address] [place] [address] July, [facility] [address] [id number] [address] [place] [address] July, [facility] [address] [id number] [address] [place] [address] July, Well woman exam Z01.419 and Vaginal discharge N89.8 [facility] [address] [id number] [address] [place] [address] Jun, [facility] [address] [id number] [address] [place] [address] Mar, [facility] [address] [id number] [address] [place] [address] May, Bipolar disorder, unspecifie d F31.9 [place] [address] [id number] [address] [place] [address] May, Bipolar disorder, unspecifie d F31.9 ; Attention deficit hyperactivity disorder (ADHD), combined type F90.2 and Schizoaffective disorder F25.9 [place] [address] [id number] [address] [place] [address] May, Bipolar disorder with depres arlen F31.30 [place] [address] [id number] [address] [place] [address] May, Bipolar disorder, unspecifie d F31.9 ; Attention deficit hyperactivity disorder (ADHD), combined type F90.2 and Schizoaffective disorder F25.9 [place] [address] [id number] [address] [place] [address] Apr, Seasonal allergic rhinitis d ue to pollen J30.1 [facility] [address] [place] [id number] [address] [place] [address] Apr, [facility] [address] [place] [id number] [address] [place] [phone] Mar, Attention deficit disorder ( ADD) without 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 ; Bipolar disorder with depression F31.30 and Generalized anxiety disorder F41.1 [place] [address] [place] [id number] [address] [place] [address] Mar, [place] [address] [place] [id number] [address] [place] [address] Feb, Unspecified mood [affective] disorder F39 [place] [address] [place] [id number] [place] [address] Feb, Unspecified mood [affective] disorder F39 [place] [address] [place] [id number] [address] [place] [address] Feb, [place] [address] [place] [id number] [address] [place] [address] Jan, Amenorrhea N91.2 ; Vitamin D deficiency E55.9 and Iron deficiency anemia due to chronic blood loss D50.0 [place] [address] [place] [id number] [address] [place] [address] Jan, Encounter for test Z32.00 [place] [address] [place] [id number] [address] [place] [address] Dec, Unspecified mood [affective] disorder F39 ; Bipolar disorder, unspecified F31.9 and Attention deficit hyperactivity disorder (ADHD), combined type F90.2 [place] [address] [place] [id number] [address] [place] [address] Nov, [place] [address] [place] [id number] [address] [place] [address] Nov, [place] [address] [place] [id number] [address] [place] [address] Nov, [facility] [address] [id number] [address] [place] [address] Nov, [facility] [address] [id number] [address] [place] [address] Nov, [facility] [address] [id number] [address] [place] [address] Nov, Dysuria R30.0 [facility] [address] [id number] [address] [place] [address] Oct, [facility] [address] [id number] [address] [place] [address] Oct, [facility] [address] [id number] [address] [place] [address] Sep, [facility] [address] [id number] [address] [place] [address] Sep, Bipolar disorder, unspecifie d F31.9 and Schizoaffective disorder F25.9 [facility] [address] [id number] [address] [place] [address] Sep, [facility] [address] [id number] [address] [place] [address] Aug, Unspecified mood [affective] disorder F39 [facility] [address] [id number] [address] [place] [address] Aug, [facility] [address] [id number] [address] [place] [address] 14 Aug, 2015 General counseling and advic e on female contraception Z30.09 and Iron deficiency anemia due to chronic blood loss D50.0 [facility] [address] [id number] [address] [place] [address] July, Routine gynecological examin ation Z01.419 ; General counseling and advice on female contraception Z30.09 ; High risk medication use Z79.899 ; Other specified bacterial agents as the cause of diseases classified elsewhere B96.89 and Acute vaginitis N76.0 [place] [address] [id number] [address] [place] [address] July, Attention deficit hyperactiv ity disorder (ADHD), combined type F90.2 ; Bipolar disorder, unspecified F31.9 and Schizoaffective disorder F25.9 [place] [address] [id number] [address] [place] [address] July, Unspecified mood [affective] disorder F39 [place] [address] [id number] [address] [place] [address] July, [place] [address] [place] [id number] [place] [address] July, [place] [address] [place] [id number] [address] [place] [address] July, Low hemoglobin D64.9 [place] [address] [place] [id number] [address] [place] [address] July, [place] [address] [facility] [id number] [address] [place] [address] July, General counselling and advi ce on contraception Z30.09 ; Pain in left knee M25.562 ; Pain in right knee M25.561 ; Chronic fatigue R53.82 and Vitamin D deficiency E55.9 [place] [address] [facility] [id number] [address] [place] [address] Jun, Fatigue R53.83 [place] [address] [facility] [address] [id number] [address] [place] [address] Jun, Fatigue R53.83 ; Low hemoglo bin D64.9 ; Long-term use of high-risk medication Z79.899 ; Sore throat J02.9 and Fever, low grade R50.9 [place] [address] [facility] [id number] [address] [place] [address] Jun, Unspecified mood [affective] disorder F39 [place] [address] [id number] [address] [place] [address] May, Unspecified mood [affective] disorder F39 [facility] [address] [id number] [address] [place] [address] May, [facility] [address] [id number] [address] [place] [address] May, Attention deficit hyperactiv ity disorder (ADHD), combined type F90.2 ; Bipolar disorder, unspecified F31.9 and Schizoaffective disorder F25.9 [facility] [address] [id number] [address] [place] [address] May, [facility] [address] [id number] [address] [place] [address] Apr, [facility] [address] [id number] [address] [place] [address] Apr, [facility] [address] [id number] [address] [place] [address] Apr, [facility] [address] [id number] [address] [place] [address] Apr, [facility] [address] [id number] [place] [id number] Apr, Ingestion of unknown drug T5 0.901A [facility] [address] [id number] [address] [place] [address] Apr, [facility] [address] [id number] [address] [place] [address] 17 Apr, 2015 Unspecified mood [affective] disorder F39 [facility] [address] [id number] [address] [place] [address] 16 Apr, 2015 Unspecified mood [affective] disorder F39 [facility] [address] [id number] [address] [place] [address] Apr, Unspecified mood [affective] disorder F39 [facility] [address] [id number] [address] [place] [address] Apr, 2016 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 9 ; Attention deficit hyperactivity disorder (ADHD), combined type F90.2 ; Bipolar disorder, unspecified F31.9 and Schizoaffective disorder F25.9 [facility] [address] [id number] [address] [place] [address] Mar, Unspecified mood [affective] disorder F39 [facility] [address] [id number] [place] [id number] Mar, Menstrual period late N91.0 and High risk sexual behavior Z72.51 [facility] [address] [id number] [address] [place] [address] Mar, Unspecified mood [affective] disorder [address] [id number] [address] [place] [address] Mar, Unspecified mood [affective] disorder [address] [place] [address] [address] [id number] [address] [place] [address] Mar, Unspecified mood [affective] disorder 9 [facility] [address] [id number] [address] [place] [address] Feb, [facility] [address] [id number] [address] [place] [address] Feb, Attention deficit hyperactiv ity disorder (ADHD), combined type F90.2 ; Episodic mood disorder 296.90 and Bipolar disorder, unspecified F31.9 [facility] [address] [id number] [address] [place] [phone] Feb, Major depressive disorder, r ecurrent, moderate F33.1 [facility] [address] [id number] [address] [place] [address] Feb, Unspecified mood [affective] disorder F39 [facility] [address] [id number] [address] [place] [phone] Feb, Unspecified mood [affective] disorder F39 [facility] [address] [id number] [address] [place] [address] Feb, [facility] [address] [id number] [address] [place] [address] Feb, Unspecified mood [affective] disorder F39 [facility] [address] [id number] [address] [place] [address] Feb, Bipolar disorder, unspecifie d F31.9 [facility] [address] [id number] [address] [place] [address] Jan, [facility] [address] [id number] [address] [place] [id number] Jan, Unspecified mood [affective] disorder F39 [facility] [address] [id number] [address] [place] [address] Jan, Unspecified mood [affective] disorder F39 [facility] [address] [id number] [address] [place] [id number] Jan, Bipolar disorder, unspecifie d F31.9 [facility] [address] [id number] [address] [place] [id number] Jan, Attention deficit hyperactiv ity disorder (ADHD), combined type F90.2 and Bipolar disorder, unspecified F31.9 [facility] [address] [id number] [address] [place] [id number] Jan, [facility] [address] [id number] [address] [place] [id number] Jan, [facility] [address] [id number] [address] [place] [id number] Jan, Unspecified mood [affective] disorder F39 [facility] [address] [id number] [address] [place] [id number] Dec, Unspecified mood [affective] disorder F39 [facility] [address] [facility] [id number] [address] [place] [id number] Dec, Unspecified mood [affective] disorder F39 [facility] [address] [facility] [id number] [address] [place] [id number] Dec, Unspecified mood [affective] disorder F39 [facility] [address] [facility] [id number] [address] [place] [id number] Dec, [facility] [address] [facility] [id number] [address] [place] [address] Dec, Viral upper respiratory trac t infection J06.9 ; Encounter for immunization Z23 and Smoker F17.200 [facility] [address] [id number] [address] [place] [address] Dec, [facility] [address] [id number] [address] [place] [address] Dec, Schizoaffective disorder F25 .9 and Attention deficit hyperactivity disorder (ADHD), combined type F90.2 [facility] [address] [id number] [address] [place] [address] Nov, [facility] [address] [id number] [address] [place] [address] Nov, Unspecified mood [affective] disorder F39 [facility] [address] [id number] [address] [place] [address] Nov, Schizoaffective disorder, un specified 295.70 ; Generalized anxiety disorder 300.02 and Attention deficit disorder of childhood with hyperactivity 314.01 [facility] [address] [id number] [address] [place] [address] Oct, [facility] [address] [id number] [address] [place] [address] Oct, [facility] [address] [id number] [address] [place] [address] Oct, [facility] [address] [id number] [address] [place] [address] Oct, Affective disorder 296.90 [facility] [address] [id number] [address] [place] [address] Oct, Screen for STD (sexually tra nsmitted disease) V74.5 and Encounter for counseling regarding contraception V25.09 [facility] [address] [id number] [address] [place] [address] Sep, [facility] [address] [id number] [address] [place] [address] Sep, [facility] [address] [id number] [address] [place] [address] Sep, Episodic mood disorder 296.9 0 [facility] [address] [id number] [address] [place] [address] Sep, [facility] [address] [id number] [address] [place] [address] Sep, [facility] [address] [id number] [address] [place] [address] Aug, [facility] [address] [id number] [address] [place] [address] Aug, [facility] [address] [id number] [address] [place] [address] Aug, [facility] [address] [id number] [address] [place] [address] Aug, Episodic mood disorder 296.9 0 [facility] [address] [id number] [address] [place] [address] Aug, [facility] [address] [id number] [address] [place] [address] July, Allergic rhinitis 477.9 [facility] [address] [id number] [address] [place] [address] July, Schizoaffective disorder, un specified 295.70 [facility] [address] [id number] [address] [place] [address], [place] [address] July, [facility] [address] [id number] [address] [place] [address], [place] [address] 14 Jun, 2014 [facility] [address] [id number] [address] [place] [address], [place] [address] 13 Jun, 2014 [facility] [address] [id number] [address] [place] [address], [place] [address] 24 May, 2014 [facility] [address] [id number] [address] [place] [address], [place] [address] 24 May, 2014 [facility] [address] [id number] [address] [place] [address], [place] [address] May, [facility] [address] [id number] [address] [place] [address], [place] [address] May, [facility] [address] [id number] [address] [place] [address], [place] [address] 20 Apr, 2014 [facility] [address] [id number] [address] [place] [address], [place] [address] 20 Apr, 2014 [facility] [address] [id number] [address] [place] [address], [place] [address] Apr, [facility] [address] [id number] [address] [place] [address], [place] [address] 19 Apr, 2014 [facility] [address] [id number] [address] [place] [address], [place] [address] 18 Apr, 2014 [facility] [address] [id number] [address] [place] [address], [place] [address] 18 Apr, 2014 [facility] [address] [id number] [address] [place] [address], [place] [address] Apr, [facility] [address] [id number] [address] [place] [address] Apr, [facility] [address] [id number] [address] [place] [address], [place] [address] Mar, [facility] [address] [id number] [address] [place] [address], [place] [address] Mar, [facility] [address] [id number] [address] [place] [address], [place] [address] Mar, [facility] [address] [id number] [address] [place] [address], [place] [address] Mar, [facility] [address] [id number] [address] [place] [address], [place] [address] Feb, [facility] [address] [id number] [address] [place] [address], [place] [address] Feb, [facility] [address] [id number] [address] [place] [address], [place] [address] Feb, [facility] [address] [id number] [address] [place] [address], [place] [address] Feb, [facility] [address] [id number] [address] [place] [address], [place] [address] Feb, [facility] [address] [id number] [address] [place] [address], [place] [address] Feb, [facility] [address] [id number] [address] [place] [address], [place] [address] Feb, [facility] [address] [id number] [address] [place] [address], [place] [address] Feb, [facility] [address] [id number] [address] [place] [address], [place] [address] Feb, [facility] [address] [id number] [address] [place] [address], [place] [address] Feb, [facility] [address] [id number] [address] [place] [address], [place] [address] Feb, [facility] [address] [id number] [address] [place] [address], [place] [address] Jan, [facility] [address] [id number] [address] [place] [address], [place] [address] Jan, [facility] [address] [id number] [address] [place] [address], [place] [address] Dec, [facility] [address] [id number] [address] [place] [address], [place] [address] Dec, [facility] [address] [id number] [address] [place] [address], [place] [address] Dec, [facility] [address] [id number] [address] [place] [address], [place] [address] Dec, [facility] [address] [id number] [address] [place] [address], [place] [address] Dec, [facility] [address] [id number] [address] [place] [address], [place] [address] Dec, [facility] [address] [id number] [address] [place] [address], [place] [address] Dec, [facility] [address] [id number] [address] [place] [address], [place] [address] Dec, [facility] [address] [id number] [address] [place] [address], [place] [address] Dec, [facility] [address] [id number] [address] [place] [address], [place] [address] Dec, [facility] [address] [id number] [address] [place] [address], [place] [address] Dec, [facility] [address] [id number] [address] [place] [address], [place] [address] Dec, [facility] [address] [id number] [address] [place] [address], [place] [address] Dec, [facility] [address] [id number] [address] [place] [address], [place] [address] Dec, [facility] [address] [id number] [address] [place] [address], [place] [address] Dec, [facility] [address] [id number] [address] [place] [address], [place] [address] Dec, [facility] [address] [id number] [address] [place] [address], [place] [address] Dec, [facility] [address] [id number] [address] [place] [address], [place] [address] Dec, [facility] [address] [id number] [address] [place] [address], [place] [address] Dec, [facility] [address] [id number] [address] [place] [address], [place] [address] Dec, [facility] [address] [id number] [address] [place] [address], [place] [address] Dec, [facility] [address] [id number] [address] [place] [address], [place] [address] Dec, [facility] [address] [id number] [address] [place] [address], [place] [address] Dec, [facility] [address] [id number] [address] [place] [address], [place] [address] Dec, [facility] [address] [id number] [address] [place] [address], [place] [address] Nov, [facility] [address] [id number] [address] [place] [address], [place] [address] Nov, [facility] [address] [id number] [address] [place] [address], [place] [address] 22 Nov, 2013 [facility] [address] [id number] [address] [place] [address], [place] [address] Nov, [facility] [address] [id number] [address] [place] [address], [place] [address] Nov, 2013 [facility] [address] [id number] [address] [place] [address], [place] [address] Nov, 2013 [facility] [address] [id number] [address] [place] [address], [place] [address] 17 Nov, 2013 [facility] [address] [id number] [facility] [place] [address] 17 Nov, 2013 [facility] [address] [id number] [address] [place] [address], [place] [address] 15 Nov, 2013 [facility] [address] [id number] [address] [place] [address], [place] [address] 15 Nov, 2013 [facility] [address] [id number] [address] [place] [address], [place] [address] Nov, 2013 [facility] [address] [id number] [address] [place] [address], [place] [address] Nov, 2013 [facility] [address] [id number] [address] [place] [address], [place] [address] Nov, 2013 [facility] [address] [id number] [address] [place] [address], [place] [address] Nov, 2013 [facility] [address] [id number] [address] [place] [address], [place] [address] Oct, [facility] [address] [id number] [address] [place] [address], [place] [address] Oct, [facility] [address] [id number] [address] [place] [address], [place] [address] Oct, [facility] [address] [id number] [address] [place] [address], [place] [address] Oct, [facility] [address] [id number] [address] [place] [address], [place] [address] Oct, [facility] [address] [id number] [address] [place] [address], [place] [address] Oct, [facility] [address] [id number] [address] [place] [address], [place] [address] Oct, [facility] [address] [id number] [address] [place] [address], [place] [address] Oct, [facility] [address] [id number] [facility] [place] [address] Sep, [facility] [address] [id number] [address] [place] [address], [place] [address] Sep, [facility] [address] [id number] [address] [place] [address], [place] [address] Sep, [facility] [address] [id number] [address] [place] [address], [place] [address] Sep, [facility] [address] [id number] [address] [place] [address], [place] [address] Sep, [facility] [address] [id number] [address] [place] [address], [place] [address] Sep, [facility] [address] [id number] [address] [place] [address], [place] [address] Aug, [facility] [address] [id number] [address] [place] [address], [place] [address] Aug, [facility] [address] [id number] [address] [place] [address], [place] [address] July, [facility] [address] [id number] [address] [place] [address], [place] [address] July, [facility] [address] [id number] [address] [place] [address], [place] [address] July, [facility] [address] [id number] [address] [place] [address], [place] [address] July, [facility] [address] [id number] [address] [place] [address], [place] [address] July, [facility] [address] [id number] [address] [place] [address], [place] [address] July, [facility] [address] [id number] [address] [place] [address], [place] [address] July, [facility] [address] [id number] [address] [place] [address], [place] [address] July, [facility] [address] [id number] [address] [place] [address], [place] [address] July, [facility] [address] [id number] [address] [place] [address], [place] [address] July, [facility] [address] [id number] [address] [place] [address], [place] [address] July, [facility] [address] [id number] [address] [place] [address], [place] [address] July, [facility] [address] [id number] [address] [place] [address], [place] [address] July, [facility] [address] [id number] [address] [place] [address], [place] [address] July, [facility] [address] [id number] [address] [place] [address], [place] [address] July, [facility] [address] [id number] [address] [place] [address], [place] [address] July, [facility] [address] [id number] [address] [place] [address], [place] [address] July, [facility] [address] [id number] [address] [place] [address], [place] [address] July, [facility] [address] [id number] [address] [place] [address], [place] [address] Jun, [facility] [address] [id number] [address] [place] [address], [place] [address] Jun, [facility] [address] [id number] [address] [place] [address], [place] [address] Jun, [facility] [address] [id number] [address] [place] [address], [place] [address] Jun, [facility] [address] [id number] [address] [place] [address], [place] [address] Jun, [facility] [address] [id number] [address] [place] [address], [place] [address] Jun, [facility] [address] [id number] [facility] [place] [address] Jun, [facility] [address] [id number] [address] [place] [address], [place] [address] Jun, [facility] [address] [id number] [address] [place] [address], [place] [address] Jun, [facility] [address] [id number] [address] [place] [address], [place] [address] Jun, [facility] [address] [id number] [address] [place] [address], [place] [address] Jun, [facility] [address] [id number] [address] [place] [address], [place] [address] Jun, [facility] [address] [id number] [address] [place] [address], [place] [address] May, [facility] [address] [id number] [address] [place] [address], [place] [address] May, [facility] [address] [id number] [address] [place] [address], [place] [address] May, [facility] [address] [id number] [address] [place] [address], [place] [address] May, [facility] [address] [id number] [address] [place] [address], [place] [address] May, [facility] [address] [id number] [address] [place] [address], [place] [address] May, [facility] [address] [id number] [address] [place] [address], [place] [address] 05 May, 2013 [facility] [address] [id number] [address] [place] [address], [place] [address] 05 May, 2013 [facility] [address] [id number] [address] [place] [address], [place] [address] May, [facility] [address] [id number] [address] [place] [address], [place] [address] May, [facility] [address] [id number] [address] [place] [address], [place] [address] Apr, [facility] [address] [id number] [address] [place] [address], [place] [address] Apr, [facility] [address] [id number] [address] [place] [address], [place] [address] Apr, [facility] [address] [id number] [address] [place] [address], [place] [address] Apr, [facility] [address] [id number] [address] [place] [address], [place] [address] Apr, [facility] [address] [id number] [address] [place] [address], [place] [address] Apr, [facility] [address] [id number] [address] [place] [address], [place] [address] Apr, [facility] [address] [id number] [address] [place] [address], [place] [address] Apr, [facility] [address] [id number] [address] [place] [address], [place] [address] Apr, [facility] [address] [id number] [address] [place] [address], [place] [address] Apr, [facility] [address] [id number] [address] [place] [address], [place] [address] Apr, [facility] [address] [id number] [address] [place] [address], [place] [address] Apr, [facility] [address] [id number] [address] [place] [address], [place] [address] Apr, [facility] [address] [id number] [address] [place] [address], [place] [address] Apr, [facility] [address] [id number] [address] [place] [address], [place] [address] Mar, [facility] [address] [id number] [address] [place] [address], [place] [address] Mar, [facility] [address] [id number] [address] [place] [address], [place] [address] Mar, [facility] [address] [id number] [address] [place] [address], [place] [address] Mar, [facility] [address] [id number] [address] [place] [address], [place] [address] Mar, [facility] [address] [id number] [address] [place] [address], [place] [address] Mar, [facility] [address] [id number] [address] [place] [address], [place] [address] Mar, [facility] [address] [id number] [address] [place] [address], [place] [address] Mar, [facility] [address] [id number] [address] [place] [address], [place] [address] Mar, [facility] [address] [id number] [address] [place] [address], [place] [address] Mar, [facility] [address] [id number] [address] [place] [address], [place] [address] Mar, [facility] [address] [id number] [address] [place] [address], [place] [address] Mar, [facility] [address] [id number] [address] [place] [address], [place] [address] Feb, [facility] [address] [id number] [address] [place] [address], [place] [address] Feb, [facility] [address] [id number] [address] [place] [address], [place] [address] Feb, [facility] [address] [id number] [address] [place] [address], [place] [address] Feb, [facility] [address] [id number] [address] [place] [address], [place] [address] Feb, [facility] [address] [id number] [address] [place] [address], [place] [address] Feb, [facility] [address] [id number] [address] [place] [address], [place] [address] Feb, [facility] [address] [id number] [address] [place] [address], [place] [address] Feb, [facility] [address] [id number] [address] [place] [address], [place] [address] Feb, [facility] [address] [id number] [address] [place] [address], [place] [address] Feb, [facility] [address] [id number] [address] [place] [address], [place] [address] Feb, [facility] [address] [id number] [address] [place] [address], [place] [address] Jan, [facility] [address] [id number] [address] [place] [address], [place] [address] Jan, [facility] [address] [id number] [address] [place] [address], [place] [address] Jan, [facility] [address] [id number] [address] [place] [id number] Jan, [facility] [address] [id number] [address] [place] [id number] Jan, [facility] [address] [id number] [address] [place] [address], [place] [address] Jan, [facility] [address] [id number] [address] [place] [address], [place] [id number] Jan, [facility] [address] [id number] [address] [place] [id number] 17 Dec, 2012 [facility] [address] [id number] [address] [place] [id number] 17 Dec, 2012 [facility] [address] [id number] [address] [place] [address], [place] [address] Dec, [facility] [address] [id number] [address] [place] [address], [place] [address] 10 Dec, 2012 [facility] [address] [id number] [address] [place] [address], [place] [address] Dec, [facility] [address] [id number] [address] [place] [address], [place] [id number] Nov, [facility] [address] [id number] [address] [place] [address], [place] [address] Oct, [facility] [address] [id number] [address] [place] [address], [place] [address] Oct, [facility] [address] [id number] [address] [place] [address], [place] [address] Oct, [facility] [address] [id number] [address] [place] [address], [place] [address] Oct, [facility] [address] [id number] [address] [place] [address], [place] [id number] Oct, [facility] [address] [id number] [address] [place] [address], [place] [address] Sep, [facility] [address] [id number] [address] [place] [address], [place] [address] Sep, [facility] [address] [id number] [address] [place] [address], [place] [address] Sep, [facility] [address] [id number] [address] [place] [address], [place] [address] Sep, [facility] [address] [id number] [address] [place] [address], [place] [id number] Aug, [facility] [address] [id number] [address] [place] [address], [place] [address] Aug, [facility] [address] [id number] [address] [place] [address], [place] [address] Aug, [facility] [address] [id number] [address] [place] [address], [place] [address] Aug, [facility] [address] [id number] [address] [place] [address], [place] [address] Aug, [facility] [address] [id number] [address] [place] [address], [place] [address] July, [facility] [address] [id number] [address] [place] [address], [place] [address] July, [facility] [address] [id number] [address] [place] [address], [place] [address] July, [facility] [address] [id number] [address] [place] [address], [place] [address] July, [facility] [address] [id number] [address] [place] [address], [place] [address] Jun, [facility] [address] [id number] [address] [place] [address], [place] [address] Jun, [facility] [address] [id number] [address] [place] [address], [place] [address] May, [facility] [address] [id number] [address] [place] [address], [place] [address] May, [facility] [address] [id number] [address] [place] [address], [place] [address] Apr, [facility] [address] [id number] [address] [place] [address], [place] [address] Apr, [facility] [address] [id number] [address] [place] [address], [place] [address] Mar, [facility] [address] [id number] [address] [place] [address], [place] [address] Mar, [facility] [address] [id number] [address] [place] [address] [address] Feb, [facility] [address] [id number] [address] [place] [address], [place] [address] Feb, [facility] [address] [id number] [address] [place] [address], [place] [address] Feb, [facility] [address] [id number] [address] [place] [address], [place] [address] Feb, [facility] [address] [id number] [address] [place] [address], [place] [address] Feb, [facility] [address] [id number] [address] [place] [address], [place] [address] Feb, [facility] [address] [id number] [address] [place] [address], [place] [address] Jan, [facility] [address] [id number] [address] [place] [address], [place] [address] Jan, [facility] [address] [id number] [address] [place] [address], [place] [address] Jan, [facility] [address] [id number] [address] [place] [address], [place] [address] Jan, [facility] [address] [id number] [address] [place] [address], [place] [address] 15 Dec, 2011 [facility] [address] [id number] [address] [place] [address], [place] [address] 15 Dec, 2011 [facility] [address] [id number] [address] [place] [address], [place] [address] 18 Nov, 2011 [facility] [address] [id number] [address] [place] [address], [place] [address] 12 Nov, 2011 [facility] [address] [id number] [address] [place] [address], [place] [address] 07 Nov, 2011 [facility] [address] [id number] [address] [place] [address], [place] [address] Oct, [facility] [address] [id number] [address] [place] [address], [place] [address] Sep, [facility] [address] [id number] [address] [place] [address], [place] [address] Aug, [facility] [address] [id number] [address] [place] [address], [place] [address] July, [facility] [address] [id number] [address] [place] [address], [place] [address] July, [facility] [address] [id number] [address] [place] [address], [place] [address] July, [facility] [address] [id number] [address] [place] [address], [place] [address] July, [facility] [address] [id number] [address] [place] [address], [place] [address] July, [facility] [address] [id number] [address] [place] [address], [place] [address] Jun, [facility] [address] [id number] [address] [place] [address], [place] [address] May, [facility] [address] [id number] [address] [place] [address], [place] [address] May, [facility] [address] [id number] [address] [place] [address], [place] [address] May, [facility] [address] [id number] [address] [place] [address], [place] [address] Apr, [facility] [address] [id number] [address] [place] [address], [place] [address] Apr, [facility] [address] [id number] [address] [place] [address], [place] [address] Mar, [facility] [address] [id number] [address] [place] [address], [place] [address] Feb, [facility] [address] [id number] [address] [place] [address], [place] [address] Feb, [facility] [address] [id number] [address] [place] [address], [place] [address] 16 Feb, 2011 [facility] [address] [id number] [address] [place] [address], [place] [address] 15 Feb, 2011 [facility] [address] [id number] [address] [place] [address], [place] [id number] 14 Feb, 2011 [facility] [address] [id number] [address] [place] [address], [place] [address] 14 Feb, 2011 [facility] [address] [id number] [address] [place] [address], [place] [address] 14 Feb, 2011 [facility] [address] [id number] [address] [place] [address], [place] [address] 29 Jan, 2011 [facility] [address] [id number] [address] [place] [address], [place] [address] 19 Jan, 2011 [facility] [address] [id number] [address] [place] [address], [place] [address] 19 Jan, 2011 [facility] [address] [id number] [address] [place] [address], [place] [address] 15 Aug, 2010 [facility] [address] [id number] [address] [place] [address], [place] [address] 30 Feb, 2010 [facility] [address] [id number] [address] [place] [address], [place] [address] 21 Feb, 2010 [facility] [address] [id number] [address] [place] [id number] 02 Feb, 2010 [facility] [address] [id number] [address] [place] [address], [place] [address] 28 Dec, 2009 [facility] [address] [id number] [address] [place] [address], [place] [address] 13 Jun, 2009 [facility] [address] [id number] [address] [place] [address] 26 Dec, 2008 [facility] [address] [id number] [address] [place] [id number] Sep, IMMUNIZATIONS No Known Immunizations SOCIAL HISTORY [...]
--- OUTSIDE RECORDS SUMMARY | 2019-07-15 19:44 | XMS REPORT ---
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 Name Role Phone Migration, Doctor Unavailable Unavailable PROBLEMS Type Condition ICD9-CM Code ZFI23-MY Code Onset Dates Condition S tatus SNOMED Code Problem Low hemoglobin D64.9 Active 71058 7008 Problem Long-term use of high-risk medication Z79.899 Active 781719139 Problem Pain in left knee M25.562 Active 30 024087 Problem Chronic fatigue R53.82 Active 5270 2003 Problem Seasonal allergic rhinitis due to pollen J30.1 Active 28036732 Problem Bipolar disorder with depression F31.30 Active 30001661 Problem Routine gynecological examination Z01.419 Active 726254351 Problem High risk medication use Z79.899 Activ e 577128595 Problem Unspecified mood [affective] disorder F39 Active 033141206 Problem Iron deficiency anemia due to chronic blood loss D 50.0 Active 32728551 Problem Attention deficit hyperactivity disorder (ADHD), combi cosmo type F90.2 Active 792548059 Problem Bipolar disorder, unspecified F31.9 Active 24965910 Problem Generalized anxiety disorder F41.1 A ctive 45376121 Problem Amenorrhea N91.2 Active 03405682 Problem Schizoaffective disorder F25.9 Activ e 82489084 Problem Well woman exam Z01.419 Active 3103 34424 Problem Schizoaffective disorder, bipolar type F25.0 Active 72897286 Problem care, first in first trimester Z34.01 Active 214984034 Problem Vitamin D deficiency E55.9 Active 20334803 Problem Anxiety F41.9 Active 12042623 Problem Pain in right knee M25.561 Active 8 5575490 Problem General counseling and advice on female contraception Z30.09 Active 82387100 Problem Social phobia F40.10 Active 793409 02 Problem Relationship problem with family member Z63.8 Active 365263091 Problem Chronic post-traumatic stress disorder (PTSD) F43. 12 Active 723759270 Problem Positive test Z32.01 Active [id number] ALLERGIES No Information ENCOUNTERS Encounter Location Date Diagnosis [facility] [address] [facility] [id number] [address] [place] [phone] July, [facility] [address] [facility] [id number] [address] [place] [phone] July, [facility] [address] [facility] [id number] [address] [place] [phone] July, [facility] [address] [facility] [id number] [address] [place] [phone] Jun, [facility] [address] [facility] [id number] [address] [place] [phone] Jun, [facility] [address] [place] [id number] [address] [place] [phone] Jun, [facility] [address] [address] Jun, [facility] [address] [place] [id number] [address] [place] [phone] Jun, Third trimester Z3 4.93 ; 35 weeks gestation of Z3A.35 and Palpitations R00.2 [facility] [address] [place] [id number] [address] [place] [phone] Jun, [facility] [address] [place] [id number] [address] [place] [phone] May, [facility] [address] [place] [id number] [address] [place] [phone] May, Third trimester Z3 4.93 ; 33 weeks gestation of Z3A.33 ; Anxiety F41.9 and Encounter for immunization Z23 [facility] [address] [facility] [id number] [address] [place] [phone] May, [facility] [address] [place] [id number] [address] [place] [phone] May, [facility] [address] [place] [id number] [place] [address], [place] [address] 20 May, 2019 [facility] [address] [id number] [address] [place] [id number] 17 May, 2019 [facility] [address] [facility] [id number] [address] [place] [id number] 16 May, 2019 [facility] [address] [place] [id number] [place] [phone] 16 May, 2019 [facility] [address] [place] [id number] [place] [phone] 12 May, 2019 [facility] [address] [facility] [id number] [place] [phone] 10 May, 2019 [place] [address] [place] [id number] [place] [phone] 10 May, 2019 care, first pregnan cy in third trimester Z34.03 ; 31 weeks gestation of Z3A.31 and Decreased movements in third trimester, single or unspecified fetus O36.8130 [place] [address] [address] 06 May, 2019 Fever and chills R50.9 and F mel-like symptoms R68.89 [place] [address] [place] [id number] [address] [place] [phone] 11 Apr, 2019 [place] [address] [address] 11 Apr, 2019 Second trimester Z 34.92 and 27 weeks gestation of Z3A.27 [place] [address] [place] [id number] [address] [place] [id number] 15 Mar, 2019 Acute non-recurrent maxillar y sinusitis J01.00 and Cough R05 [place] [address] [place] [id number] [address] [place] [phone] Mar, [facility] [address] [address] Mar, [facility] [address] [id number] [address] [place] [phone] Mar, [facility] [address] [id number] [address] [place] [address] Mar, care in second trim gabo Z34.92 and 23 weeks gestation of Z3A.23 [facility] [address] [id number] [address] [place] [phone] Feb, care in second trim gabo Z34.92 and 19 weeks gestation of Z3A.19 [facility] [address] [id number] [address] [place] [address] Feb, [place] [address] [facility] [id number] [address] [place] [address] Feb, care in second trim gabo Z34.92 ; 19 weeks gestation of Z3A.19 and Encounter for immunization Z23 [facility] [address] [facility] [id number] [address] [place] [address] Feb, Dental examination Z01.20 [facility] [address] [id number] [address] [place] [phone] Feb, [facility] [address] [facility] [id number] [address] [place] [phone] Jan, [facility] [address] [id number] [address] [place] [phone] Jan, care in second trim gabo Z34.92 and 15 weeks gestation of Z3A.15 [facility] [address] [id number] [address] [place] [address] Dec, First trimester Z3 4.91 ; 11 weeks gestation of Z3A.11 and Nausea/vomiting in O21.9 [facility] [address] [id number] [address] [place] [phone] Dec, [facility] [address] [facility] [id number] [address] [place] [phone] Dec, [facility] [address] [id number] [address] [place] [id number] 14 Dec, 2018 care, first pregnan cy in first trimester Z34.01 [facility] [address] [id number] [address] [place] [phone] 08 Dec, 2018 [facility] [address] [id number] [address] [place] [id number] Dec, Chronic post-traumatic stres s disorder (PTSD) F43.12 ; Relationship problem with family member Z63.8 and Positive test Z32.01 [facility] [address] [id number] [address] [place] [phone] 26 Nov, 2018 [facility] [address] [id number] [address] [place] [id number] 26 Nov, 2018 care, first pregnan cy in first trimester Z34.01 [facility] [address] [id number] [address] [place] [phone] 25 Nov, 2018 [facility] [address] [id number] [address] [place] [id number] 25 Nov, 2018 care, first pregnan cy in first trimester Z34.01 and 7 weeks gestation of Z3A.01 [facility] [address] [id number] [address] [place] [phone] 24 Nov, 2018 [facility] [address] [id number] [address] [place] [id number] 20 Nov, 2018 [facility] [address] [id number] [address] [place] [phone] 18 Nov, 2018 [facility] [address] [id number] [address] [place] [id number] 13 Nov, 2018 [facility] [address] [id number] [address] [place] [id number] 13 Nov, 2018 [facility] [address] [facility] [id number] [address] [place] [phone] 13 Nov, 2018 Positive test Z32. 01 ; Well woman exam with routine gynecological exam Z01.419 ; Amenorrhea N91.2 ; , unspecified gestational age Z34.90 ; Encounter for smoking cessation counseling Z71.6 ; Acute vaginitis N76.0 and Other specified bacterial agents as the cause of diseases classified elsewhere B96.89 [place] [address] [facility] [id number] [address] [place] [id number] 11 Nov, 2018 [place] [address] [id number] [address] [place] [id number] Nov, [place] [address] [facility] [id number] [address] [place] [phone] Oct, Bipolar disorder with depres arlen F31.30 [place] [address] [facility] [id number] [address] [place] [id number] Oct, Bipolar disorder with depres arlen F31.30 ; Chronic post-traumatic stress disorder (PTSD) F43.12 and Relationship problem with family member Z63.8 [place] [address] [facility] [id number] [address] [place] [phone] Aug, Bipolar disorder with depres arlen F31.30 ; Chronic post-traumatic stress disorder (PTSD) F43.12 and Relationship problem with family member Z63.8 [place] [address] [facility] [id number] [address] [place] [phone] Mar, Schizoaffective disorder, bi polar type F25.0 ; Social phobia F40.10 ; Chronic post-traumatic stress disorder (PTSD) F43.12 and Relationship problem with family member Z63.8 [facility] [address] [id number] [address] Oct, Pain in right shoulder M25.511 and Bipol ar disorder with depression F31.30 [place] [address] [id number] [address] [place] [phone] July, [place] [address] [facility] [id number] [address] [place] [address] July, [facility] [id number] [place] [address] July, Well woman exam Z01.419 and Vaginal discharge N89.8 [facility] [address] [place] [id number] [address] [place] [phone] Jun, [facility] [address] [facility] [id number] [address] [place] [phone] Mar, [facility] [address] [place] [id number] [address] [place] [id number] May, Bipolar disorder, unspecifie d F31.9 [place] [address] [id number] May, Bipolar disorder, unspecifie d F31.9 ; Attention deficit hyperactivity disorder (ADHD), combined type F90.2 and Schizoaffective disorder F25.9 [place] [address] [id number] May, Bipolar disorder with depres arlen F31.30 [place] [address] [address] May, Bipolar disorder, unspecifie d F31.9 ; Attention deficit hyperactivity disorder (ADHD), combined type F90.2 and Schizoaffective disorder F25.9 [place] [address] [address] Apr, Seasonal allergic rhinitis d ue to pollen J30.1 [place] [address] [place] [id number] [address] [place] [phone] Apr, [place] [address] [address] Mar, Attention deficit disorder ( ADD) without 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 ; Bipolar disorder with depression F31.30 and Generalized anxiety disorder F41.1 [place] [address] [address] Mar, [facility] [address] [facility] [id number] [address] [place] [phone] Feb, Unspecified mood [affective] disorder F39 [facility] [address] [facility] [id number] [address] [place] [id number] Feb, Unspecified mood [affective] disorder F39 [facility] [address] [facility] [id number] [address] [place] [id number] Feb, [facility] [address] [facility] [id number] [address] [place] [phone] Jan, Amenorrhea N91.2 ; Vitamin D deficiency E55.9 and Iron deficiency anemia due to chronic blood loss D50.0 [facility] [address] [facility] [id number] [address] [place] [phone] Jan, Encounter for test Z32.00 [facility] [address] [facility] [id number] [address] [place] [id number] Dec, Unspecified mood [affective] disorder F39 ; Bipolar disorder, unspecified F31.9 and Attention deficit hyperactivity disorder (ADHD), combined type F90.2 [facility] [address] [facility] [id number] [address] [place] [phone] Nov, [facility] [address] [facility] [id number] [address] [place] [phone] Nov, [facility] [address] [facility] [id number] [address] [place] [phone] Nov, [facility] [address] [facility] [id number] [address] [place] [id number] Nov, [facility] [address] [facility] [id number] [address] [place] [phone] Nov, [facility] [address] [facility] [id number] [address] [place] [address] Nov, Dysuria R30.0 [facility] [address] [facility] [id number] [address] [place] [id number] Oct, [facility] [address] [id number] [address] [place] [phone] Oct, [facility] [address] [id number] [address] [place] [address] Sep, [facility] [address] [id number] [address] [place] [phone] Sep, Bipolar disorder, unspecifie d F31.9 and Schizoaffective disorder F25.9 [facility] [address] [id number] [address] [place] [phone] Sep, [facility] [address] [id number] [address] [place] [phone] Aug, Unspecified mood [affective] disorder F39 [facility] [address] [facility] [id number] [address] [place] [id number] Aug, [facility] [address] [id number] [address] [place] [address] Aug, General counseling and advic e on female contraception Z30.09 and Iron deficiency anemia due to chronic blood loss D50.0 [facility] [address] [facility] [id number] [address] [place] [address] July, Routine gynecological examin ation Z01.419 ; General counseling and advice on female contraception Z30.09 ; High risk medication use Z79.899 ; Other specified bacterial agents as the cause of diseases classified elsewhere B96.89 and Acute vaginitis N76.0 [facility] [address] [id number] [address] [place] [address] July, Attention deficit hyperactiv ity disorder (ADHD), combined type F90.2 ; Bipolar disorder, unspecified F31.9 and Schizoaffective disorder F25.9 [facility] [address] [id number] [address] [place] [phone] July, Unspecified mood [affective] disorder F39 [place] [address] [facility] [id number] [address] [place] [address] July, [place] [address] [facility] [id number] [address] [place] [phone] July, [place] [address] [facility] [id number] [address] [place] [address] July, Low hemoglobin D64.9 [place] [address] [facility] [id number] [address] [place] [address] July, [place] [address] [facility] [id number] [address] [place] [address] July, General counselling and advi ce on contraception Z30.09 ; Pain in left knee M25.562 ; Pain in right knee M25.561 ; Chronic fatigue R53.82 and Vitamin D deficiency E55.9 [place] [address] [facility] [id number] [address] [place] [address] Jun, Fatigue R53.83 [place] [address] [facility] [id number] [address] [place] [address] Jun, Fatigue R53.83 ; Low hemoglo bin D64.9 ; Long-term use of high-risk medication Z79.899 ; Sore throat J02.9 and Fever, low grade R50.9 [place] [address] [facility] [id number] [address] [place] [id number] Jun, Unspecified mood [affective] disorder F39 [place] [address] [facility] [id number] [address] [place] [id number] May, Unspecified mood [affective] disorder F39 [place] [address] [facility] [id number] [address] [place] [address] May, [place] [address] [facility] [id number] [address] [place] [address] May, Attention deficit hyperactiv ity disorder (ADHD), combined type F90.2 ; Bipolar disorder, unspecified F31.9 and Schizoaffective disorder F25.9 [facility] [address] [id number] [address] [place] [phone] May, [facility] [address] [id number] [address] [place] [id number] Apr, [facility] [address] [id number] [address] [place] [phone] Apr, [facility] [address] [id number] [address] [place] [id number] Apr, [facility] [address] [id number] [address] [place] [address] Apr, [facility] [address] [id number] [place] [id number] Apr, Ingestion of unknown drug T5 0.901A [facility] [address] [id number] [address] [place] [phone] Apr, [facility] [address] [id number] [address] [place] [id number] Apr, Unspecified mood [affective] disorder F39 [facility] [address] [id number] [address] [place] [id number] 16 Apr, 2015 Unspecified mood [affective] disorder F39 [facility] [address] [id number] [address] [place] [phone] Apr, Unspecified mood [affective] disorder F39 [facility] [address] [id number] [address] [place] [id number] 03 Apr, 2015 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 9 ; Attention deficit hyperactivity disorder (ADHD), combined type F90.2 ; Bipolar disorder, unspecified F31.9 and Schizoaffective disorder F25.9 [facility] [address] [id number] [address] [place] [phone] Mar, Unspecified mood [affective] disorder F39 [facility] [address] [id number] [place] [address] [id number] Mar, Menstrual period late N91.0 and High risk sexual behavior Z72.51 [facility] [address] [id number] [address] [place] [address] Mar, Unspecified mood [affective] disorder F39 [facility] [address] [id number] [address] [place] [id number] Mar, Unspecified mood [affective] disorder F39 [facility] [address] [id number] [address] [place] [id number] Mar, Unspecified mood [affective] disorder F39 [facility] [address] [id number] [address] [place] [phone] Feb, [facility] [address] [id number] [address] [place] [id number] Feb, Attention deficit hyperactiv ity disorder (ADHD), combined type F90.2 ; Episodic mood disorder 296.90 and Bipolar disorder, unspecified F31.9 [facility] [address] [id number] [address] [place] [phone] Feb, Major depressive disorder, r ecurrent, moderate F33.1 [facility] [address] [id number] [address] [place] [id number] Feb, Unspecified mood [affective] disorder F39 [facility] [address] [id number] [address] [place] [id number] Feb, Unspecified mood [affective] disorder F39 [facility] [address] [id number] [address] [place] [id number] Feb, [facility] [address] [id number] [address] [place] [phone] Feb, Unspecified mood [affective] disorder F39 [facility] [address] [id number] [address] [place] [id number] Feb, Bipolar disorder, unspecifie d F31.9 [facility] [address] [id number] [address] [place] [id number] Jan, [facility] [address] [id number] [address] [place] [id number] Jan, Unspecified mood [affective] disorder F39 [facility] [address] [id number] [address] [place] [phone] Jan, Unspecified mood [affective] disorder F39 [facility] [address] [id number] [address] [place] [id number] Jan, Bipolar disorder, unspecifie d F31.9 [facility] [address] [id number] [address] [place] [id number] Jan, Attention deficit hyperactiv ity disorder (ADHD), combined type F90.2 and Bipolar disorder, unspecified F31.9 [facility] [address] [id number] [address] [place] [id number] Jan, [facility] [address] [id number] [address] [place] [phone] Jan, [facility] [address] [id number] [address] [place] [id number] Jan, Unspecified mood [affective] disorder F39 [facility] [address] [id number] [address] [place] [id number] Dec, Unspecified mood [affective] disorder F39 [facility] [address] [id number] [address] [place] [id number] Dec, Unspecified mood [affective] disorder F39 [facility] [address] [id number] [address] [place] [id number] Dec, Unspecified mood [affective] disorder F39 [facility] [address] [id number] [address] [place] [id number] Dec, [facility] [address] [id number] [address] [place] [id number] Dec, Viral upper respiratory trac t infection J06.9 ; Encounter for immunization Z23 and Smoker F17.200 [facility] [address] [facility] [id number] [address] [place] [id number] Dec, [facility] [address] [facility] [id number] [address] [place] [id number] Dec, Schizoaffective disorder F25 .9 and Attention deficit hyperactivity disorder (ADHD), combined type F90.2 [facility] [address] [facility] [id number] [address] [place] [id number] Nov, [facility] [address] [facility] [id number] [address] [place] [phone] Nov, Unspecified mood [affective] disorder F39 [facility] [address] [facility] [id number] [address] [place] [id number] Nov, Schizoaffective disorder, un specified 295.70 ; Generalized anxiety disorder 300.02 and Attention deficit disorder of childhood with hyperactivity 314.01 [facility] [address] [facility] [id number] [address] [place] [id number] Oct, [facility] [address] [facility] [id number] [address] [place] [id number] Oct, [facility] [address] [facility] [id number] [address] [place] [id number] Oct, [facility] [address] [facility] [id number] [address] [place] [phone] Oct, Affective disorder 296.90 [facility] [address] [facility] [id number] [address] [place] [id number] Oct, Screen for STD (sexually tra nsmitted disease) V74.5 and Encounter for counseling regarding contraception V25.09 [facility] [address] [facility] [id number] [address] [place] [id number] Sep, [facility] [address] [facility] [id number] [address] [place] [id number] Sep, [facility] [address] [id number] [address] [place] [id number] Sep, Episodic mood disorder 296.9 0 [facility] [address] [id number] [address] [place] [phone] Sep, [facility] [address] [id number] [address] [place] [phone] Sep, [facility] [address] [id number] [address] [place] [phone] Aug, [facility] [address] [id number] [address] [place] [phone] Aug, [facility] [address] [id number] [address] [place] [id number] Aug, [facility] [address] [id number] [address] [place] [phone] Aug, Episodic mood disorder 296.9 0 [facility] [address] [id number] [address] [place] [id number] Aug, [facility] [address] [id number] [address] [place] [id number] July, Allergic rhinitis 477.9 [facility] [address] [id number] [address] [place] [phone] July, Schizoaffective disorder, un specified 295.70 [facility] [address] [id number] [address] [place] [id number] July, [facility] [address] [id number] [address] [place] [phone] Jun, [facility] [address] [id number] [address] [place] [phone] Jun, [facility] [address] [id number] [address] [place] [phone] May, [facility] [address] [id number] [address] [place] [address], [place] [id number] May, [facility] [address] [id number] [address] [place] [address], [place] [id number] May, [facility] [address] [id number] [address] [place] [address], [place] [id number] May, [facility] [address] [id number] [address] [place] [address], [place] [id number] Apr, [facility] [address] [id number] [address] [place] [address], [place] [id number] Apr, [facility] [address] [id number] [address] [place] [address], [place] [id number] Apr, [facility] [address] [id number] [address] [place] [address], [place] [id number] Apr, [facility] [address] [id number] [address] [place] [address], [place] [id number] Apr, [facility] [address] [id number] [address] [place] [address], [place] [id number] Apr, [facility] [address] [id number] [address] [place] [address], [place] [id number] Apr, [facility] [address] [id number] [address] [place] [address], [place] [id number] Apr, [facility] [address] [id number] [address] [place] [address], [place] [id number] Mar, [facility] [address] [id number] [address] [place] [address], [place] [id number] Mar, [facility] [address] [id number] [address] [place] [address], [place] [id number] Mar, [facility] [address] [id number] [address] [place] [address], [place] [id number] Mar, [facility] [address] [id number] [address] [place] [address], [place] [id number] Feb, [facility] [address] [id number] [address] [place] [address], [place] [id number] Feb, [facility] [address] [id number] [address] [place] [address], [place] [id number] Feb, [facility] [address] [id number] [address] [place] [address], [place] [id number] Feb, [facility] [address] [id number] [address] [place] [address], [place] [id number] Feb, [facility] [address] [id number] [address] [place] [address], [place] [id number] Feb, [facility] [address] [id number] [address] [place] [address], [place] [id number] Feb, [facility] [address] [id number] [address] [place] [address], [place] [id number] Feb, [facility] [address] [id number] [address] [place] [address], [place] [id number] Feb, [facility] [address] [id number] [address] [place] [address], [place] [id number] Feb, [facility] [address] [id number] [address] [place] [address], [place] [id number] Feb, [facility] [address] [id number] [address] [place] [address], [place] [id number] Jan, [facility] [address] [id number] [address] [place] [id number] Jan, [facility] [address] [id number] [address] [place] [address], [place] [id number] Dec, [facility] [address] [id number] [address] [place] [address], [place] [id number] Dec, [facility] [address] [id number] [address] [place] [address], [place] [id number] Dec, [facility] [address] [id number] [address] [place] [address], [place] [id number] Dec, 2013 [facility] [address] [id number] [address] [place] [address], [place] [id number] Dec, 2013 [facility] [address] [id number] [address] [place] [address], [place] [id number] Dec, 2013 [facility] [address] [id number] [address] [place] [address], [place] [id number] Dec, 2013 [facility] [address] [id number] [address] [place] [address], [place] [id number] Dec, 2013 [facility] [address] [id number] [address] [place] [address], [place] [id number] Dec, [facility] [address] [id number] [address] [place] [address], [place] [id number] Dec, [facility] [address] [id number] [address] [place] [address], [place] [id number] Dec, 2013 [facility] [address] [id number] [address] [place] [address], [place] [id number] Dec, 2013 [facility] [address] [id number] [address] [place] [address], [place] [id number] Dec, 2013 [facility] [address] [id number] [address] [place] [address], [place] [id number] Dec, 2013 [facility] [address] [id number] [address] [place] [address], [place] [id number] Dec, 2013 [facility] [address] [id number] [address] [place] [id number] Dec, 2013 [facility] [address] [id number] [address] [place] [address], [place] [id number] Dec, 2013 [facility] [address] [id number] [address] [place] [address], [place] [id number] Dec, 2013 [facility] [address] [id number] [address] [place] [address], [place] [id number] Dec, 2013 [facility] [address] [id number] [address] [place] [address], [place] [id number] Dec, [facility] [address] [id number] [address] [place] [address], [place] [id number] Dec, [facility] [address] [id number] [address] [place] [address], [place] [id number] Dec, [facility] [address] [id number] [address] [place] [address], [place] [id number] Dec, [facility] [address] [id number] [address] [place] [address], [place] [id number] Dec, [facility] [address] [id number] [address] [place] [address], [place] [id number] 22 Nov, 2013 [facility] [address] [id number] [address] [place] [address], [place] [id number] 22 Nov, 2013 [facility] [address] [id number] [address] [place] [address], [place] [id number] 22 Nov, 2013 [facility] [address] [id number] [address] [place] [address], [place] [id number] 22 Nov, 2013 [facility] [address] [id number] [address] [place] [address], [place] [id number] 22 Nov, 2013 [facility] [address] [id number] [address] [place] [address], [place] [id number] 22 Nov, 2013 [facility] [address] [id number] [address] [place] [address], [place] [id number] 17 Sep, 2013 [facility] [address] [id number] [address] [place] [address], [place] [id number] 17 Sep, 2013 [facility] [address] [id number] [address] [place] [address], [place] [id number] 15 Nov, 2013 [facility] [address] [id number] [address] [place] [address], [place] [id number] 15 Nov, 2013 [facility] [address] [id number] [address] [place] [address], [place] [id number] Nov, [facility] [address] [id number] [address] [place] [address], [place] [id number] Nov, [facility] [address] [id number] [address] [place] [address], [place] [id number] Nov, [facility] [address] [id number] [address] [place] [address], [place] [id number] Nov, [facility] [address] [id number] [address] [place] [address], [place] [id number] Oct, [facility] [address] [id number] [address] [place] [address], [place] [id number] Oct, [facility] [address] [id number] [address] [place] [address], [place] [id number] Oct, [facility] [address] [id number] [address] [place] [address], [place] [id number] Oct, [facility] [address] [id number] [address] [place] [address], [place] [id number] Oct, [facility] [address] [id number] [address] [place] [address], [place] [id number] Oct, [facility] [address] [id number] [address] [place] [address], [place] [id number] Oct, [facility] [address] [id number] [address] [place] [address], [place] [id number] Oct, [facility] [address] [id number] [address] [place] [address], [place] [id number] Sep, [facility] [address] [id number] [address] [place] [address], [place] [id number] Sep, [facility] [address] [id number] [address] [place] [address], [place] [id number] Sep, [facility] [address] [id number] [address] [place] [address], [place] [id number] Sep, [facility] [address] [id number] [facility] [place] [id number] Sep, [facility] [address] [id number] [address] [place] [address], [place] [id number] Sep, [facility] [address] [id number] [address] [place] [address], [place] [id number] Aug, [facility] [address] [id number] [address] [place] [address], [place] [id number] Aug, [facility] [address] [id number] [address] [place] [address], [place] [id number] July, [facility] [address] [id number] [address] [place] [address], [place] [id number] July, [facility] [address] [id number] [address] [place] [address], [place] [id number] July, [facility] [address] [id number] [address] [place] [address], [place] [id number] July, [facility] [address] [id number] [address] [place] [address], [place] [id number] July, [facility] [address] [id number] [address] [place] [address], [place] [id number] July, [facility] [address] [id number] [address] [place] [address], [place] [id number] July, [facility] [address] [id number] [address] [place] [address], [place] [id number] July, [facility] [address] [id number] [address] [place] [address], [place] [id number] July, [facility] [address] [id number] [address] [place] [address], [place] [id number] July, [facility] [address] [id number] [address] [place] [address], [place] [id number] July, [facility] [address] [id number] [address] [place] [address], [place] [id number] July, [facility] [address] [id number] [facility] [place] [id number] July, [facility] [address] [id number] [address] [place] [address], [place] [id number] July, [facility] [address] [id number] [address] [place] [address], [place] [id number] July, [facility] [address] [id number] [address] [place] [address], [place] [id number] July, [facility] [address] [id number] [address] [place] [address], [place] [id number] July, [facility] [address] [id number] [address] [place] [address], [place] [id number] July, [facility] [address] [id number] [address] [place] [address], [place] [id number] Jun, [facility] [address] [id number] [address] [place] [address], [place] [id number] Jun, [facility] [address] [id number] [address] [place] [address], [place] [id number] Jun, [facility] [address] [id number] [address] [place] [address], [place] [id number] Jun, [facility] [address] [id number] [address] [place] [address], [place] [id number] Jun, [facility] [address] [id number] [address] [place] [address], [place] [id number] Jun, [facility] [address] [id number] [address] [place] [address], [place] [address] Jun, [facility] [address] [id number] [address] [place] [address], [place] [id number] Jun, [facility] [address] [id number] [address] [place] [address], [place] [id number] Jun, [facility] [address] [id number] [address] [place] [address], [place] [id number] 10 Jun, 2013 [facility] [address] [id number] [address] [place] [address], [place] [id number] Jun, [facility] [address] [id number] [address] [place] [address], [place] [id number] Jun, [facility] [address] [id number] [address] [place] [address], [place] [id number] May, [facility] [address] [id number] [address] [place] [address], [place] [id number] May, [facility] [address] [id number] [address] [place] [address], [place] [id number] May, [facility] [address] [id number] [address] [place] [address], [place] [id number] May, [facility] [address] [id number] [address] [place] [address], [place] [id number] May, [facility] [address] [id number] [address] [place] [address], [place] [id number] May, [facility] [address] [id number] [address] [place] [address], [place] [id number] May, [facility] [address] [id number] [address] [place] [address], [place] [id number] May, [facility] [address] [id number] [address] [place] [address], [place] [id number] May, [facility] [address] [id number] [address] [place] [address], [place] [id number] May, [facility] [address] [id number] [address] [place] [address], [place] [id number] Apr, [facility] [address] [id number] [address] [place] [address], [place] [id number] Apr, [facility] [address] [id number] [address] [place] [address], [place] [id number] Apr, [facility] [address] [id number] [address] [place] [address], [place] [id number] Apr, [facility] [address] [id number] [address] [place] [address], [place] [id number] Apr, [facility] [address] [id number] [address] [place] [address], [place] [id number] Apr, [facility] [address] [id number] [address] [place] [address], [place] [id number] Apr, [facility] [address] [id number] [address] [place] [address], [place] [id number] Apr, [facility] [address] [id number] [address] [place] [address], [place] [id number] Apr, [facility] [address] [id number] [address] [place] [address], [place] [id number] Apr, [facility] [address] [id number] [address] [place] [address], [place] [id number] Apr, [facility] [address] [id number] [address] [place] [address], [place] [id number] Apr, [facility] [address] [id number] [address] [place] [address], [place] [id number] Apr, [facility] [address] [id number] [address] [place] [address], [place] [id number] Apr, [facility] [address] [id number] [address] [place] [address], [place] [id number] Mar, [facility] [address] [id number] [address] [place] [address], [place] [id number] Mar, [facility] [address] [id number] [address] [place] [address], [place] [id number] Mar, [facility] [address] [id number] [address] [place] [address], [place] [id number] Mar, [facility] [address] [id number] [address] [place] [address], [place] [id number] Mar, [facility] [address] [id number] [address] [place] [address], [place] [id number] Mar, [facility] [address] [id number] [address] [place] [address], [place] [id number] Mar, [facility] [address] [id number] [address] [place] [address], [place] [id number] Mar, [facility] [address] [id number] [address] [place] [address], [place] [id number] Mar, [facility] [address] [id number] [address] [place] [address], [place] [id number] Mar, [facility] [address] [id number] [address] [place] [address], [place] [id number] Mar, [facility] [address] [id number] [address] [place] [address], [place] [id number] Mar, [facility] [address] [id number] [address] [place] [address], [place] [id number] Feb, [facility] [address] [id number] [address] [place] [address], [place] [id number] Feb, [facility] [address] [id number] [address] [place] [address], [place] [id number] Feb, [facility] [address] [id number] [address] [place] [address], [place] [id number] Feb, [facility] [address] [id number] [address] [place] [address], [place] [id number] Feb, [facility] [address] [id number] [address] [place] [address], [place] [id number] Feb, [facility] [address] [id number] [address] [place] [address], [place] [id number] Feb, [facility] [address] [id number] [address] [place] [address], [place] [id number] Feb, [facility] [address] [id number] [address] [place] [address], [place] [id number] 05 Feb, 2013 [facility] [address] [id number] [address] [place] [address], [place] [id number] Feb, [facility] [address] [id number] [address] [place] [address], [place] [id number] Feb, [facility] [address] [id number] [address] [place] [address], [place] [id number] Jan, [facility] [address] [id number] [address] [place] [address], [place] [id number] Jan, [facility] [address] [id number] [address] [place] [address], [place] [id number] Jan, [facility] [address] [id number] [address] [place] [address], [place] [id number] Jan, [facility] [address] [id number] [address] [place] [id number] Jan, [facility] [address] [id number] [address] [place] [address], [place] [id number] Jan, [facility] [address] [id number] [address] [place] [id number] Jan, [facility] [address] [id number] [address] [place] [id number] Dec, [facility] [address] [id number] [address] [place] [id number] Dec, [facility] [address] [id number] [address] [place] [id number] Dec, [facility] [address] [id number] [address] [place] [id number] Dec, [facility] [address] [id number] [address] [place] [id number] Dec, [facility] [address] [id number] [address] [place] [id number] Nov, [facility] [address] [id number] [address] [place] [address], [place] [id number] Oct, [facility] [address] [id number] [address] [place] [address], [place] [id number] Oct, [facility] [address] [id number] [address] [place] [address], [place] [id number] Oct, [facility] [address] [id number] [address] [place] [address], [place] [id number] Oct, [facility] [address] [id number] [address] [place] [address], [place] [id number] Oct, [facility] [address] [id number] [address] [place] [address], [place] [id number] Sep, [facility] [address] [id number] [address] [place] [address], [place] [id number] Sep, [facility] [address] [id number] [address] [place] [address], [place] [id number] Sep, [facility] [facility] [address] [id number] [address] [place] [address], [place] [id number] Sep, [facility] [address] [id number] [address] [place] [address], [place] [id number] Aug, [facility] [address] [id number] [address] [place] [address], [place] [id number] Aug, [facility] [address] [id number] [address] [place] [address], [place] [id number] Aug, [facility] [address] [id number] [address] [place] [address], [place] [id number] Aug, [facility] [address] [id number] [address] [place] [address], [place] [id number] Aug, [facility] [address] [id number] [address] [place] [address], [place] [id number] July, [facility] [address] [id number] [address] [place] [address], [place] [id number] July, [facility] [address] [id number] [address] [place] [address], [place] [id number] July, [facility] [address] [id number] [address] [place] [address], [place] [id number] July, [facility] [address] [id number] [address] [place] [address], [place] [id number] Jun, [facility] [address] [id number] [address] [place] [address], [place] [id number] Jun, [facility] [address] [id number] [address] [place] [address], [place] [id number] May, [facility] [address] [id number] [address] [place] [address], [place] [id number] May, [facility] [address] [id number] [address] [place] [address], [place] [id number] Apr, [facility] [address] [id number] [address] [place] [address], [place] [id number] Apr, [facility] [address] [id number] [address] [place] [address], [place] [id number] Mar, [facility] [address] [id number] [address] [place] [address], [place] [id number] Mar, [facility] [address] [id number] [address] [place] [address], [place] [id number] Feb, [facility] [address] [id number] [address] [place] [address], [place] [id number] Feb, [facility] [address] [id number] [address] [place] [address], [place] [id number] Feb, [facility] [address] [id number] [address] [place] [address], [place] [id number] Feb, [facility] [address] [id number] [address] [place] [address], [place] [id number] Feb, [facility] [address] [id number] [address] [place] [address], [place] [id number] Feb, [facility] [address] [id number] [address] [place] [address], [place] [id number] Jan, [facility] [address] [id number] [address] [place] [address], [place] [id number] Jan, [facility] [address] [id number] [address] [place] [address], [place] [id number] Jan, [facility] [address] [id number] [address] [place] [address], [place] [id number] Jan, [facility] [address] [id number] [address] [place] [address], [place] [id number] Dec, [facility] [address] [id number] [address] [place] [address], [place] [id number] Dec, [facility] [address] [id number] [address] [place] [address], [place] [id number] Nov, [facility] [address] [id number] [address] [place] [address], [place] [id number] Nov, [facility] [address] [id number] [address] [place] [address], [place] [id number] Nov, [facility] [address] [id number] [address] [place] [address], [place] [id number] Oct, [facility] [address] [id number] [address] [place] [id number] Sep, [facility] [address] [id number] [address] [place] [address], [place] [id number] Aug, [facility] [address] [id number] [address] [place] [address], [place] [id number] July, [facility] [address] [id number] [address] [place] [address], [place] [id number] July, [facility] [address] [id number] [address] [place] [address], [place] [id number] July, [facility] [address] [id number] [address] [place] [address], [place] [id number] July, [facility] [address] [id number] [address] [place] [address], [place] [id number] July, [facility] [address] [id number] [address] [place] [address], [place] [id number] Jun, [facility] [address] [id number] [address] [place] [address], [place] [id number] May, [facility] [address] [id number] [address] [place] [address], [place] [id number] 29 May, 2011 [facility] [address] [id number] [address] [place] [address], [place] [id number] May, [facility] [address] [id number] [address] [place] [address], [place] [id number] 28 Apr, 2011 [facility] [address] [id number] [address] [place] [address], [place] [id number] 20 Apr, 2011 [facility] [address] [id number] [address] [place] [address], [place] [id number] Mar, [facility] [address] [id number] [address] [place] [address], [place] [id number] 16 Feb, 2011 [facility] [address] [id number] [address] [place] [address], [place] [id number] 16 Feb, 2011 [facility] [address] [id number] [address] [place] [address], [place] [id number] 16 Feb, 2011 [facility] [address] [id number] [address] [place] [address], [place] [id number] 15 Feb, 2011 [facility] [address] [id number] [address] [place] [address], [place] [id number] 14 Feb, 2011 [facility] [address] [id number] [address] [place] [address], [place] [id number] 14 Feb, 2011 [facility] [address] [id number] [address] [place] [id number] 14 Feb, 2011 [facility] [address] [id number] [address] [place] [id number] Jan, [facility] [address] [id number] [address] [place] [id number] Jan, [facility] [address] [id number] [address] [place] [id number] Jan, [facility] [address] [id number] [address] [place] [id number] 15 Aug, 2010 [facility] [address] [id number] [address] [place] [id number] 30 Feb, 2010 [facility] [address] [id number] [address] [place] [phone] Feb, [facility] [address] [id number] [address] [place] [id number] Feb, [facility] [address] [id number] [address] [place] [phone] Dec, [facility] [address] [id number] [address] [place] [id number] Jun, [facility] [address] [id number] [address] [place] [id number] Dec, [facility] [address] [id number] [address] [place] [id number] Sep, IMMUNIZATIONS No Known Immunizations SOCIAL HISTORY [...]
--- OUTSIDE RECORDS SUMMARY | 2019-07-15 19:44 | XMS REPORT ---
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 Assembler Name Role Phone Tao [facility] Unavailable PROBLEMS Type Condition ICD9-CM Code HHY88-FD Code Onset Dates Condition S tatus SNOMED Code Problem Low hemoglobin D64.9 Active 90591 7008 Problem Long-term use of high-risk medication Z79.899 Active 057804850 Problem Pain in left knee M25.562 Active 30 394789 Problem Chronic fatigue R53.82 Active 5270 2003 Problem Seasonal allergic rhinitis due to pollen J30.1 Active 31754893 Problem Bipolar disorder with depression F31.30 Active 59671140 Problem Routine gynecological examination Z01.419 Active 152617868 Problem High risk medication use Z79.899 Activ e 516969921 Problem Unspecified mood [affective] disorder F39 Active 348734996 Problem Iron deficiency anemia due to chronic blood loss D 50.0 Active 67376921 Problem Attention deficit hyperactivity disorder (ADHD), combi cosmo type F90.2 Active 676732051 Problem Bipolar disorder, unspecified F31.9 Active 60398349 Problem Generalized anxiety disorder F41.1 A ctive 23818685 Problem Amenorrhea N91.2 Active 10440698 Problem Schizoaffective disorder F25.9 Activ e 63805235 Problem Well woman exam Z01.419 Active 3103 60403 Problem Schizoaffective disorder, bipolar type F25.0 Active 10380094 Problem care, first in first trimester Z34.01 Active 271765900 Problem Vitamin D deficiency E55.9 Active 01371543 Problem Anxiety F41.9 Active 43764216 Problem Pain in right knee M25.561 Active 8 5443655 Problem General counseling and advice on female contraception Z30.09 Active 85632038 Problem Social phobia F40.10 Active 719769 02 Problem Relationship problem with family member Z63.8 Active 595085035 Problem Chronic post-traumatic stress disorder (PTSD) F43. 12 Active 713268614 Problem Positive test Z32.01 Active 152614677 ALLERGIES No Information ENCOUNTERS Encounter Location Date Diagnosis [facility] [id number] [place] [address] July, [facility] [address] [place] [id number] [place] [address] July, [facility] [address] [address] July, [facility] [address] [facility] [id number] [address] [place] [address] Jun, [facility] [address] [place] [id number] [place] [phone] Jun, [facility] [address] [place] [id number] [address] [place] [address] Jun, Third trimester Z3 4.93 [facility] [address] [place] [id number] [address] [place] [address] Jun, [facility] [address] [address] Jun, Third trimester Z3 4.93 ; 35 weeks gestation of Z3A.35 and Palpitations R00.2 [place] [address] [place] [address] Jun, [facility] [address] [place] [id number] [place] [address] May, [facility] [address] [place] [id number] [place] [address] May, Third trimester Z3 4.93 ; 33 weeks gestation of Z3A.33 ; Anxiety F41.9 and Encounter for immunization Z23 [facility] [address] [place] [id number] [place] [address] May, [facility] [address] [place] [id number] [address] [place] [address] 24 May, 2019 [facility] [address] [address] 20 May, 2019 [facility] [address] [address] 17 May, 2019 [place] [address] [address] 16 May, 2019 [facility] [address] [address] 16 May, 2019 [place] [address] [address] 12 May, 2019 [place] [address] [place] [id number] [place] [address] 10 May, 2019 [place] [address] [address] 10 May, 2019 care, first pregnan cy in third trimester Z34.03 ; 31 weeks gestation of Z3A.31 and Decreased movements in third trimester, single or unspecified fetus O36.8130 [place] [address] [address] 06 May, 2019 Fever and chills R50.9 and F mel-like symptoms R68.89 [place] [address] [place] [id number] [place] [address] 11 Apr, 2019 [place] [address] [address] 11 Apr, 2019 Second trimester Z 34.92 and 27 weeks gestation of Z3A.27 [place] [address] [address] 15 Mar, 2019 Acute non-recurrent maxillar y sinusitis J01.00 and Cough R05 [place] [address] [address] Mar, [facility] [address] [facility] [id number] [address] [place] [address] Mar, [facility] [address] [facility] [id number] [address] [place] [address] Mar, [facility] [address] [facility] [id number] [address] [place] [address] Mar, care in second trim gabo Z34.92 and 23 weeks gestation of Z3A.23 [place] [address] [facility] [id number] [address] [place] [address] Feb, care in second trim gabo Z34.92 and 19 weeks gestation of Z3A.19 [place] [address] [facility] [id number] [address] [place] [address] Feb, [place] [address] [facility] [id number] [address] [place] [address] Feb, care in second trim gabo Z34.92 ; 19 weeks gestation of Z3A.19 and Encounter for immunization Z23 [place] [address] [facility] [id number] [address] [place] [address] Feb, Dental examination Z01.20 [place] [id number] [facility] [id number] [address] [place] [address] Feb, [place] [address] [facility] [id number] [address] [place] [address] Jan, [facility] [address] [facility] [id number] [address] [place] [address] Jan, care in second trim gabo Z34.92 and 15 weeks gestation of Z3A.15 [place] [address] [facility] [id number] [address] [place] [address] Dec, First trimester Z3 4.91 ; 11 weeks gestation of Z3A.11 and Nausea/vomiting in O21.9 [facility] [address] [facility] [id number] [address] [place] [address] Dec, [facility] [address] [id number] [address] [place] [address] Dec, [facility] [address] [id number] [address] [place] [address] Dec, care, first pregnan cy in first trimester Z34.01 [facility] [address] [id number] [address] [place] [address] Dec, [facility] [address] [id number] [address] [place] [address] Dec, Chronic post-traumatic stres s disorder (PTSD) F43.12 ; Relationship problem with family member Z63.8 and Positive test Z32.01 [facility] [address] [id number] [address] [place] [address] 26 Nov, 2018 [facility] [address] [id number] [address] [place] [address] 26 Nov, 2018 care, first pregnan cy in first trimester Z34.01 [facility] [address] [id number] [address] [place] [address] Nov, [facility] [address] [id number] [address] [place] [address] 25 Nov, 2018 care, first pregnan cy in first trimester Z34.01 and 7 weeks gestation of Z3A.01 [facility] [address] [id number] [address] [place] [address] 24 Nov, 2018 [facility] [address] [id number] [address] [place] [address] 20 Nov, 2018 [facility] [address] [id number] [address] [place] [address] 18 Nov, 2018 [facility] [address] [id number] [address] [place] [address] 13 Nov, 2018 [facility] [address] [id number] [address] [place] [address] 13 Nov, 2018 [place] [address] [facility] [id number] [address] [place] [address] 13 Nov, 2018 Positive test Z32. 01 ; Well woman exam with routine gynecological exam Z01.419 ; Amenorrhea N91.2 ; , unspecified gestational age Z34.90 ; Encounter for smoking cessation counseling Z71.6 ; Acute vaginitis N76.0 and Other specified bacterial agents as the cause of diseases classified elsewhere B96.89 [place] [address] [id number] [address] [place] [id number] 11 Nov, 2018 [place] [address] [id number] [address] [place] [address] 11 Nov, 2018 [place] [address] [facility] [id number] [address] [place] [address] 12 Oct, 2018 Bipolar disorder with depres arlen F31.30 [place] [address] [id number] [address] [place] [address] Oct, Bipolar disorder with depres arlen F31.30 ; Chronic post-traumatic stress disorder (PTSD) F43.12 and Relationship problem with family member Z63.8 [place] [address] [facility] [id number] [address] [place] [address] Aug, Bipolar disorder with depres arlen F31.30 ; Chronic post-traumatic stress disorder (PTSD) F43.12 and Relationship problem with family member Z63.8 [place] [address] [facility] [id number] [address] [place] [address] Mar, Schizoaffective disorder, bi polar type F25.0 ; Social phobia F40.10 ; Chronic post-traumatic stress disorder (PTSD) F43.12 and Relationship problem with family member Z63.8 [facility] [id number] [address] Oct, Pain in right shoulder M25.511 and Bipol ar disorder with depression F31.30 [place] [address] [id number] [address] [place] [address] July, [facility] [address] [facility] [id number] [address] [place] [address] July, [facility] [address] [facility] [id number] [address] [place] [address] July, Well woman exam Z01.419 and Vaginal discharge N89.8 [facility] [address] [facility] [id number] [address] [place] [address] Jun, [facility] [address] [facility] [id number] [address] [place] [address] Mar, [facility] [address] [facility] [id number] [address] [place] [address] May, Bipolar disorder, unspecifie d F31.9 [facility] [address] [facility] [id number] [address] [place] [address] May, Bipolar disorder, unspecifie d F31.9 ; Attention deficit hyperactivity disorder (ADHD), combined type F90.2 and Schizoaffective disorder F25.9 [place] [address] [facility] [id number] [address] [place] [address] May, Bipolar disorder with depres arlen F31.30 [facility] [address] [facility] [id number] [address] [place] [address] May, Bipolar disorder, unspecifie d F31.9 ; Attention deficit hyperactivity disorder (ADHD), combined type F90.2 and Schizoaffective disorder F25.9 [facility] [address] [facility] [id number] [address] [place] [address] Apr, Seasonal allergic rhinitis d ue to pollen J30.1 [facility] [address] [facility] [id number] [address] [place] [address] Apr, [facility] [address] [facility] [id number] [address] [place] [address] Mar, Attention deficit disorder ( ADD) without 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 ; Bipolar disorder with depression F31.30 and Generalized anxiety disorder F41.1 [facility] [address] [facility] [id number] [address] [place] [address] Mar, [facility] [address] [facility] [id number] [address] [place] [address] Feb, Unspecified mood [affective] disorder F39 [facility] [address] [facility] [id number] [address] [place] [address] Feb, Unspecified mood [affective] disorder F39 [facility] [address] [facility] [id number] [address] [place] [phone] Feb, [facility] [address] [facility] [id number] [address] [place] [address] Jan, Amenorrhea N91.2 ; Vitamin D deficiency E55.9 and Iron deficiency anemia due to chronic blood loss D50.0 [facility] [address] [facility] [id number] [address] [place] [address] Jan, Encounter for test Z32.00 [facility] [address] [facility] [id number] [address] [place] [phone] Dec, Unspecified mood [affective] disorder F39 ; Bipolar disorder, unspecified F31.9 and Attention deficit hyperactivity disorder (ADHD), combined type F90.2 [facility] [address] [facility] [id number] [address] [place] [address] Nov, [facility] [address] [facility] [id number] [address] [place] [address] Nov, [facility] [address] [facility] [id number] [address] [place] [address] Nov, [facility] [address] [facility] [id number] [address] [place] [address] Nov, [facility] [address] [facility] [id number] [address] [place] [address] Nov, [facility] [address] [facility] [id number] [address] [place] [address] Nov, Dysuria R30.0 [facility] [address] [facility] [id number] [address] [place] [address] Oct, [facility] [address] [facility] [id number] [address] [place] [address] Oct, [facility] [address] [facility] [id number] [address] [place] [address] Sep, [facility] [address] [facility] [id number] [address] [place] [address] Sep, Bipolar disorder, unspecifie d F31.9 and Schizoaffective disorder F25.9 [facility] [address] [facility] [id number] [address] [place] [address] Sep, [place] [address] [facility] [id number] [address] [place] [address] Aug, Unspecified mood [affective] disorder F39 [facility] [address] [facility] [id number] [address] [place] [address] Aug, [facility] [address] [facility] [id number] [address] [place] [address] Aug, General counseling and advic e on female contraception Z30.09 and Iron deficiency anemia due to chronic blood loss D50.0 [place] [address] [facility] [id number] [address] [place] [address] July, Routine gynecological examin ation Z01.419 ; General counseling and advice on female contraception Z30.09 ; High risk medication use Z79.899 ; Other specified bacterial agents as the cause of diseases classified elsewhere B96.89 and Acute vaginitis N76.0 [facility] [address] [facility] [id number] [address] [place] [address] July, Attention deficit hyperactiv ity disorder (ADHD), combined type F90.2 ; Bipolar disorder, unspecified F31.9 and Schizoaffective disorder F25.9 [place] [address] [facility] [id number] [address] [place] [address] July, Unspecified mood [affective] disorder F39 [facility] [address] [facility] [id number] [address] [place] [address] July, [place] [address] [facility] [id number] [address] [place] [address] July, [place] [address] [facility] [id number] [address] [place] [address] July, Low hemoglobin D64.9 [place] [address] [facility] [id number] [address] [place] [address] July, [place] [address] [place] [id number] [address] [place] [address] July, General counselling and advi ce on contraception Z30.09 ; Pain in left knee M25.562 ; Pain in right knee M25.561 ; Chronic fatigue R53.82 and Vitamin D deficiency E55.9 [place] [address] [facility] [id number] [address] [place] [address] Jun, Fatigue R53.83 [place] [address] [facility] [id number] [address] [place] [address] Jun, Fatigue R53.83 ; Low hemoglo bin D64.9 ; Long-term use of high-risk medication Z79.899 ; Sore throat J02.9 and Fever, low grade R50.9 [facility] [address] [facility] [id number] [address] [place] [address] Jun, Unspecified mood [affective] disorder F39 [place] [address] [facility] [id number] [address] [place] [address] May, Unspecified mood [affective] disorder F39 [place] [address] [facility] [id number] [address] [place] [address] May, [place] [address] [facility] [id number] [address] [place] [address] May, Attention deficit hyperactiv ity disorder (ADHD), combined type F90.2 ; Bipolar disorder, unspecified F31.9 and Schizoaffective disorder F25.9 [facility] [address] [id number] [address] [place] [address] May, [facility] [address] [id number] [address] [place] [address] Apr, [facility] [address] [id number] [address] [place] [address] Apr, [facility] [address] [id number] [address] [place] [address] Apr, [facility] [address] [id number] [address] [place] [address] Apr, [facility] [address] [id number] [place] [id number] Apr, Ingestion of unknown drug T5 0.901A [facility] [address] [id number] [address] [place] [address] Apr, [facility] [address] [id number] [address] [place] [address] Apr, Unspecified mood [affective] disorder F39 [facility] [address] [id number] [address] [place] [id number] 16 Apr, 2015 Unspecified mood [affective] disorder F39 [facility] [address] [id number] [address] [place] [address] Apr, Unspecified mood [affective] disorder F39 [facility] [address] [facility] [id number] [address] [place] [phone] 03 Apr, 2015 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 9 ; Attention deficit hyperactivity disorder (ADHD), combined type F90.2 ; Bipolar disorder, unspecified F31.9 and Schizoaffective disorder F25.9 [facility] [address] [id number] [address] [place] [address] Mar, Unspecified mood [affective] disorder F39 [facility] [address] [id number] [place] [id number] Mar, Menstrual period late N91.0 and High risk sexual behavior Z72.51 [facility] [address] [id number] [address] [place] [address] Mar, Unspecified mood [affective] disorder F39 [facility] [address] [id number] [address] [place] [address] Mar, Unspecified mood [affective] disorder F39 [facility] [address] [id number] [address] [place] [phone] Mar, Unspecified mood [affective] disorder [address] [id number] [address] [place] [address] Feb, [facility] [address] [id number] [address] [place] [phone] Feb, Attention deficit hyperactiv ity disorder (ADHD), combined type F90.2 ; Episodic mood disorder 296.90 and Bipolar disorder, unspecified F31.9 [facility] [address] [id number] [address] [place] [address] Feb, Major depressive disorder, r ecurrent, moderate F33.1 [facility] [address] [id number] [address] [place] [address] Feb, Unspecified mood [affective] disorder F39 [facility] [address] [id number] [address] [place] [address] Feb, Unspecified mood [affective] disorder F39 [facility] [address] [id number] [address] [place] [address] Feb, [facility] [address] [id number] [address] [place] [address] Feb, Unspecified mood [affective] disorder F39 [facility] [address] [id number] [address] [place] [address] Feb, Bipolar disorder, unspecifie d F31.9 [facility] [address] [id number] [address] [place] [phone] Jan, [facility] [address] [id number] [address] [place] [phone] Jan, Unspecified mood [affective] disorder F39 [facility] [address] [id number] [address] [place] [address] Jan, Unspecified mood [affective] disorder F39 [facility] [address] [id number] [address] [place] [address] Jan, Bipolar disorder, unspecifie d F31.9 [facility] [address] [id number] [address] [place] [address] Jan, Attention deficit hyperactiv ity disorder (ADHD), combined type F90.2 and Bipolar disorder, unspecified F31.9 [facility] [address] [id number] [address] [place] [address] Jan, [facility] [address] [id number] [address] [place] [address] Jan, [facility] [address] [id number] [address] [place] [address] Jan, Unspecified mood [affective] disorder F39 [facility] [address] [id number] [address] [place] [address] Dec, Unspecified mood [affective] disorder F39 [facility] [address] [id number] [address] [place] [address] Dec, Unspecified mood [affective] disorder F39 [facility] [address] [id number] [address] [place] [address] Dec, Unspecified mood [affective] disorder F39 [facility] [address] [address] 14 Dec, 2014 [facility] [address] [id number] Dec, Viral upper respiratory trac t infection J06.9 ; Encounter for immunization Z23 and Smoker F17.200 [facility] [address] [address] Dec, [facility] [address] [address] Dec, Schizoaffective disorder F25 .9 and Attention deficit hyperactivity disorder (ADHD), combined type F90.2 [place] [address] [address] Nov, [place] [address] [address] Nov, Unspecified mood [affective] disorder F39 [facility] [address] [address] Nov, Schizoaffective disorder, un specified 295.70 ; Generalized anxiety disorder 300.02 and Attention deficit disorder of childhood with hyperactivity 314.01 [facility] [address] [address] Oct, [facility] [address] [address] Oct, [facility] [address] [id number] Oct, [facility] [address] [address] Oct, Affective disorder 296.90 [facility] [address] [address] Oct, Screen for STD (sexually tra nsmitted disease) V74.5 and Encounter for counseling regarding contraception V25.09 [facility] [address] [place] [address] Sep, [facility] [address] [id number] [address] [place] [id number] Sep, [facility] [address] [id number] [address] [place] [id number] Sep, Episodic mood disorder 296.9 0 [facility] [address] [id number] [address] [place] [id number] Sep, [facility] [address] [id number] [address] [place] [id number] Sep, [facility] [address] [id number] [address] [place] [id number] Aug, [facility] [address] [id number] [address] [place] [id number] Aug, [facility] [address] [id number] [address] [place] [id number] Aug, [facility] [address] [id number] [address] [place] [id number] Aug, Episodic mood disorder 296.9 0 [facility] [facility] [address] [id number] [address] [place] [address] Aug, [facility] [address] [facility] [id number] [address] [place] [address] July, Allergic rhinitis 477.9 [facility] [address] [id number] [address] [place] [address] July, Schizoaffective disorder, un specified 295.70 [facility] [address] [id number] [address] [place] [address] July, [facility] [address] [facility] [id number] [address] [place] [address] Jun, [facility] [address] [id number] [address] [place] [address] Jun, [facility] [address] [id number] [address] [place] [address], [place] [address] May, [facility] [address] [id number] [address] [place] [address], [place] [address] May, [facility] [address] [id number] [address] [place] [address], [place] [address] May, [facility] [address] [id number] [address] [place] [address], [place] [address] May, [facility] [address] [id number] [address] [place] [address], [place] [address] Apr, [facility] [address] [id number] [address] [place] [address], [place] [address] Apr, [facility] [address] [id number] [address] [place] [address], [place] [address] Apr, [facility] [address] [id number] [address] [place] [address], [place] [address] Apr, [facility] [address] [id number] [address] [place] [address], [place] [address] Apr, [facility] [address] [id number] [address] [place] [address], [place] [address] Apr, [facility] [address] [id number] [address] [place] [address], [place] [address] Apr, [facility] [address] [id number] [address] [place] [address], [place] [address] Apr, [facility] [address] [id number] [address] [place] [address], [place] [address] Mar, [facility] [address] [id number] [address] [place] [address], [place] [address] Mar, [facility] [address] [id number] [address] [place] [address], [place] [address] Mar, [facility] [address] [id number] [address] [place] [address] [place] [address] 08 Mar, 2014 [facility] [address] [id number] [address] [place] [address], [place] [address] 31 Feb, 2014 [facility] [address] [id number] [address] [place] [address], [place] [address] Feb, [facility] [address] [id number] [address] [place] [address], [place] [address] Feb, [facility] [address] [id number] [address] [place] [address], [place] [address] Feb, [facility] [address] [id number] [address] [place] [address], [place] [address] Feb, [facility] [address] [id number] [address] [place] [address], [place] [address] Feb, [facility] [address] [id number] [address] [place] [address], [place] [address] Feb, [facility] [address] [id number] [address] [place] [address], [place] [address] Feb, [facility] [address] [id number] [address] [place] [address], [place] [address] Feb, [facility] [address] [id number] [address] [place] [address], [place] [address] Feb, [facility] [address] [id number] [address] [place] [address], [place] [address] Feb, [facility] [address] [id number] [address] [place] [address], [place] [address] Jan, [facility] [address] [id number] [address] [place] [address], [place] [address] Jan, [facility] [address] [id number] [address] [place] [address], [place] [address] Dec, [facility] [address] [id number] [address] [place] [address], [place] [address] Dec, [facility] [address] [id number] [address] [place] [address], [place] [address] Dec, [facility] [address] [id number] [address] [place] [address], [place] [address] Dec, [facility] [address] [id number] [address] [place] [address], [place] [address] Dec, [facility] [address] [id number] [address] [place] [address], [place] [address] Dec, [facility] [address] [id number] [address] [place] [address], [place] [address] Dec, [facility] [address] [id number] [address] [place] [address], [place] [address] Dec, [facility] [address] [id number] [address] [place] [address], [place] [address] Dec, [facility] [address] [id number] [address] [place] [address], [place] [address] Dec, [facility] [address] [id number] [address] [place] [address], [place] [address] Dec, [facility] [address] [id number] [address] [place] [address], [place] [address] Dec, [facility] [address] [id number] [address] [place] [address], [place] [address] Dec, [facility] [address] [id number] [address] [place] [address], [place] [address] Dec, [facility] [address] [id number] [address] [place] [address], [place] [address] Dec, [facility] [address] [id number] [address] [place] [address], [place] [address] Dec, [facility] [address] [id number] [address] [place] [address], [place] [address] Dec, [facility] [address] [id number] [address] [place] [address], [place] [address] 08 Dec, 2013 [facility] [address] [id number] [address] [place] [address], [place] [address] 07 Dec, 2013 [facility] [address] [id number] [address] [place] [address], [place] [address] 07 Dec, 2013 [facility] [address] [id number] [address] [place] [address], [place] [address] Dec, [facility] [address] [id number] [address] [place] [address], [place] [address] Dec, [facility] [address] [id number] [address] [place] [address], [place] [address] Dec, [facility] [address] [id number] [address] [place] [address], [place] [address] Dec, [facility] [address] [id number] [address] [place] [address], [place] [address] 22 Nov, 2013 [facility] [address] [id number] [address] [place] [address], [place] [address] 22 Sep, 2013 [facility] [address] [id number] [address] [place] [address], [place] [address] 22 Sep, 2013 [facility] [address] [id number] [address] [place] [address], [place] [address] 22 Sep, 2013 [facility] [address] [id number] [address] [place] [address], [place] [address] 22 Sep, 2013 [facility] [address] [id number] [address] [place] [address], [place] [address] 22 Sep, 2013 [facility] [address] [id number] [address] [place] [address], [place] [address] 17 Sep, 2013 [facility] [address] [id number] [address] [place] [address], [place] [address] 17 Sep, 2013 [facility] [address] [id number] [address] [place] [address], [place] [address] 15 Sep, 2013 [facility] [address] [id number] [facility] [place] [address] 15 Nov, 2013 [facility] [address] [id number] [address] [place] [address], [place] [address] Nov, 2013 [facility] [address] [id number] [facility] [place] [address] Nov, [facility] [address] [id number] [address] [place] [address], [place] [address] Nov, [facility] [address] [id number] [address] [place] [address], [place] [address] Nov, [facility] [address] [id number] [address] [place] [address], [place] [address] Oct, [facility] [address] [id number] [address] [place] [address], [place] [address] Oct, [facility] [address] [id number] [address] [place] [address], [place] [address] Oct, [facility] [address] [id number] [address] [place] [address], [place] [address] Oct, [facility] [address] [id number] [address] [place] [address], [place] [address] Oct, [facility] [address] [id number] [address] [place] [address], [place] [address] Oct, [facility] [address] [id number] [address] [place] [address], [place] [address] Oct, [facility] [address] [id number] [address] [place] [address], [place] [address] Oct, [facility] [address] [id number] [address] [place] [address], [place] [address] Sep, [facility] [address] [id number] [address] [place] [address], [place] [address] Sep, [facility] [address] [id number] [address] [place] [address], [place] [address] Sep, [facility] [address] [id number] [address] [place] [address], [place] [address] Sep, [facility] [address] [id number] [address] [place] [address], [place] [address] Sep, [facility] [address] [id number] [address] [place] [address], [place] [address] Sep, [facility] [address] [id number] [address] [place] [address], [place] [address] Aug, [facility] [address] [id number] [address] [place] [address], [place] [address] Aug, [facility] [address] [id number] [address] [place] [address], [place] [address] July, [facility] [address] [id number] [address] [place] [address], [place] [address] July, [facility] [address] [id number] [address] [place] [address], [place] [address] July, [facility] [address] [id number] [address] [place] [address], [place] [address] July, [facility] [address] [id number] [address] [place] [address], [place] [address] July, [facility] [address] [id number] [address] [place] [address], [place] [address] July, [facility] [address] [id number] [address] [place] [address], [place] [address] July, [facility] [address] [id number] [address] [place] [address], [place] [address] July, [facility] [address] [id number] [address] [place] [address], [place] [address] July, [facility] [address] [id number] [address] [place] [address], [place] [address] July, [facility] [address] [id number] [address] [place] [address], [place] [address] July, [facility] [address] [id number] [address] [place] [address], [place] [address] July, [facility] [address] [id number] [address] [place] [address], [place] [address] July, [facility] [address] [id number] [address] [place] [address], [place] [address] July, [facility] [address] [id number] [address] [place] [address], [place] [address] July, [facility] [address] [id number] [address] [place] [address], [place] [address] July, [facility] [address] [id number] [address] [place] [address], [place] [address] July, [facility] [address] [id number] [address] [place] [address], [place] [address] July, [facility] [address] [id number] [address] [place] [address], [place] [address] Jun, [facility] [address] [id number] [address] [place] [address], [place] [address] Jun, [facility] [address] [id number] [address] [place] [address], [place] [address] Jun, [facility] [address] [id number] [address] [place] [address], [place] [address] Jun, [facility] [address] [id number] [address] [place] [address], [place] [address] Jun, [facility] [address] [id number] [address] [place] [address], [place] [address] Jun, [facility] [address] [id number] [address] [place] [address], [place] [address] Jun, [facility] [address] [id number] [address] [place] [address], [place] [address] Jun, [facility] [address] [id number] [facility] [place] [address] 10 Jun, 2013 [facility] [address] [id number] [facility] [place] [address] Jun, [facility] [address] [id number] [facility] [place] [address] Jun, [facility] [address] [id number] [address] [place] [address], [place] [address] Jun, [facility] [address] [id number] [facility] [place] [address] May, [facility] [address] [id number] [address] [place] [address], [place] [address] May, [facility] [address] [id number] [address] [place] [address], [place] [address] May, [facility] [address] [id number] [address] [place] [address], [place] [address] May, [facility] [address] [id number] [address] [place] [address], [place] [address] May, [facility] [address] [id number] [address] [place] [address], [place] [address] May, [facility] [address] [id number] [address] [place] [address], [place] [address] May, [facility] [address] [id number] [address] [place] [address], [place] [address] May, [facility] [address] [id number] [address] [place] [address], [place] [address] May, [facility] [address] [id number] [address] [place] [address], [place] [address] May, [facility] [address] [id number] [address] [place] [address], [place] [address] Apr, [facility] [address] [id number] [address] [place] [address], [place] [address] Apr, [facility] [address] [id number] [address] [place] [address], [place] [address] Apr, [facility] [address] [id number] [address] [place] [address], [place] [address] Apr, [facility] [address] [id number] [address] [place] [address], [place] [address] Apr, [facility] [address] [id number] [address] [place] [address], [place] [address] Apr, [facility] [address] [id number] [address] [place] [address], [place] [address] Apr, [facility] [address] [id number] [address] [place] [address], [place] [address] Apr, [facility] [address] [id number] [address] [place] [address], [place] [address] Apr, [facility] [address] [id number] [address] [place] [address], [place] [address] Apr, [facility] [address] [id number] [address] [place] [address], [place] [address] Apr, [facility] [address] [id number] [address] [place] [address], [place] [address] Apr, [facility] [address] [id number] [address] [place] [address], [place] [address] Apr, [facility] [address] [id number] [address] [place] [address], [place] [address] Apr, [facility] [address] [id number] [address] [place] [address], [place] [address] Mar, [facility] [address] [id number] [address] [place] [address], [place] [address] Mar, [facility] [address] [id number] [address] [place] [address], [place] [address] Mar, [facility] [address] [id number] [address] [place] [address], [place] [address] Mar, [facility] [address] [id number] [address] [place] [address], [place] [address] Mar, [facility] [address] [id number] [address] [place] [address], [place] [address] Mar, [facility] [address] [id number] [address] [place] [address], [place] [address] Mar, [facility] [address] [id number] [address] [place] [address], [place] [address] Mar, [facility] [address] [id number] [address] [place] [address], [place] [address] Mar, [facility] [address] [id number] [address] [place] [address], [place] [address] Mar, [facility] [address] [id number] [address] [place] [address], [place] [address] Mar, [facility] [address] [id number] [address] [place] [address], [place] [address] Mar, [facility] [address] [id number] [address] [place] [address], [place] [address] Feb, [facility] [address] [id number] [address] [place] [address], [place] [address] Feb, [facility] [address] [id number] [address] [place] [address], [place] [address] Feb, [facility] [address] [id number] [address] [place] [address], [place] [address] Feb, [facility] [address] [id number] [address] [place] [address], [place] [address] Feb, [facility] [address] [id number] [address] [place] [address], [place] [address] Feb, [facility] [address] [id number] [address] [address] Feb, [facility] [address] [id number] [address] [place] [address], [place] [address] Feb, [facility] [address] [id number] [address] [place] [address], [place] [address] 05 Feb, 2013 [facility] [address] [id number] [address] [place] [address] Feb, [facility] [address] [id number] [address] [place] [address] Feb, [facility] [address] [id number] [address] [place] [address], [place] [address] Jan, [facility] [address] [id number] [address] [place] [id number] Jan, [facility] [address] [id number] [address] [place] [address], [place] [address] Jan, [facility] [address] [id number] [address] [place] [address] Jan, [facility] [address] [id number] [address] [place] [address] Jan, [facility] [address] [id number] [address] [place] [address] Jan, [facility] [address] [id number] [address] [place] [address] Jan, [facility] [address] [id number] [address] [place] [address] Dec, [facility] [address] [id number] [address] [place] [address], [place] [address] 17 Dec, 2012 [facility] [address] [id number] [address] [place] [address] Dec, [facility] [address] [id number] [address] [place] [id number] 10 Dec, 2012 [facility] [address] [id number] [address] [place] [address], [place] [address] Dec, [facility] [address] [id number] [address] [place] [address], [place] [address] Nov, [facility] [address] [id number] [address] [place] [address], [place] [address] Oct, [facility] [address] [id number] [address] [place] [address], [place] [address] Oct, [facility] [address] [id number] [address] [place] [address], [place] [address] Oct, [facility] [address] [id number] [address] [place] [address], [place] [address] Oct, [facility] [address] [id number] [address] [place] [address], [place] [address] Oct, [facility] [address] [id number] [address] [place] [address], [place] [address] Sep, [facility] [address] [id number] [address] [place] [address], [place] [address] Sep, [facility] [address] [id number] [address] [place] [address], [place] [address] Sep, [facility] [address] [id number] [address] [place] [address], [place] [address] Sep, [facility] [address] [id number] [address] [place] [address], [place] [address] Aug, [facility] [address] [id number] [address] [place] [address], [place] [address] Aug, [facility] [address] [id number] [address] [place] [address], [place] [address] Aug, [facility] [address] [id number] [address] [place] [address], [place] [address] Aug, [facility] [address] [id number] [address] [place] [address], [place] [address] Aug, [facility] [address] [id number] [address] [place] [address], [place] [address] July, [facility] [address] [id number] [address] [place] [address], [place] [address] July, [facility] [address] [id number] [address] [place] [address], [place] [address] July, [facility] [address] [id number] [address] [place] [address], [place] [address] July, [facility] [address] [id number] [address] [place] [address], [place] [address] Jun, [facility] [address] [id number] [address] [place] [address], [place] [address] Jun, [facility] [address] [id number] [address] [place] [address], [place] [address] May, [facility] [address] [id number] [address] [place] [address], [place] [address] May, [facility] [address] [id number] [address] [place] [address], [place] [address] Apr, [facility] [address] [id number] [address] [place] [address], [place] [id number] Apr, [facility] [address] [id number] [address] [place] [address], [place] [address] Mar, [facility] [address] [id number] [address] [place] [address], [place] [address] Mar, [facility] [address] [id number] [address] [place] [address], [place] [address] Feb, [facility] [address] [id number] [address] [place] [address], [place] [address] Feb, [facility] [address] [id number] [address] [place] [address], [place] [address] Feb, [facility] [address] [id number] [address] [place] [address] [place] [address] Feb, [facility] [address] [id number] [address] [place] [address], [place] [address] Feb, [facility] [address] [id number] [address] [place] [address], [place] [address] Feb, [facility] [address] [id number] [address] [place] [address], [place] [address] Jan, [facility] [address] [id number] [address] [place] [address], [place] [address] Jan, [facility] [address] [id number] [address] [place] [address], [place] [address] Jan, [facility] [address] [id number] [address] [place] [address], [place] [address] Jan, [facility] [address] [id number] [address] [place] [address], [place] [address] Dec, [facility] [address] [id number] [address] [place] [address], [place] [address] Dec, [facility] [address] [id number] [address] [place] [address], [place] [address] 18 Nov, 2011 [facility] [address] [id number] [address] [place] [address], [place] [address] Nov, [facility] [address] [id number] [address] [place] [address], [place] [address] Nov, [facility] [address] [id number] [address] [place] [address], [place] [address] Oct, [facility] [address] [id number] [address] [place] [address], [place] [address] Sep, [facility] [address] [id number] [address] [place] [address], [place] [address] Aug, [facility] [address] [id number] [address] [place] [address], [place] [address] July, [facility] [address] [id number] [address] [place] [address], [place] [address] July, [facility] [address] [id number] [address] [place] [address], [place] [address] July, [facility] [address] [id number] [address] [place] [address], [place] [address] July, [facility] [address] [id number] [address] [place] [address], [place] [address] July, [facility] [address] [id number] [address] [place] [address], [place] [address] Jun, [facility] [address] [id number] [address] [place] [address], [place] [address] May, [facility] [address] [id number] [address] [place] [address], [place] [address] May, [facility] [address] [id number] [address] [place] [address], [place] [address] May, [facility] [address] [id number] [address] [place] [address], [place] [address] Apr, [facility] [address] [id number] [address] [place] [address], [place] [address] Apr, [facility] [address] [id number] [address] [place] [address], [place] [address] Mar, [facility] [address] [id number] [address] [place] [address], [place] [address] Feb, [facility] [address] [id number] [address] [place] [address], [place] [address] Feb, [facility] [address] [id number] [address] [place] [address], [place] [address] Feb, [facility] [address] [id number] [address] [place] [address], [place] [address] 15 Feb, 2011 [facility] [address] [id number] [address] [address] 14 Feb, 2011 [facility] [address] [id number] [address] [place] [address] 14 Feb, 2011 [facility] [address] [id number] [address] [place] [address] 14 Feb, 2011 [facility] [address] [id number] [address] [place] [address] 29 Jan, 2011 [facility] [address] [id number] [address] [place] [address] Jan, [facility] [address] [id number] [address] [place] [address] Jan, [facility] [address] [id number] [address] [place] [address] 15 Aug, 2010 [facility] [address] [id number] [address] [place] [address] 30 Feb, 2010 [facility] [address] [id number] [address] [place] [address] Feb, [facility] [address] [id number] [address] [place] [address] Feb, [facility] [address] [id number] [address] [place] [address] Dec, [facility] [address] [id number] [address] [place] [address] Jun, [facility] [address] [id number] [address] [place] [id number] Dec, [facility] [address] [id number] [address] [place] [address] Sep, IMMUNIZATIONS No Known Immunizations SOCIAL HISTORY Never Assessed REASON FOR VISIT PLAN OF CARE VITAL SIGNS Height 63.5 in 2013-10-12 Weight 122.38 lbs 2013-10-12 Temperature 97.9 degrees Fahrenheit 2013-10-12 Heart Rate 76 bpm 2013-10-12 Respiratory Rate 24 2013-10-12 Blood pressure systolic 98 mmHg 2013-10-12 Blood pressure diastolic 64 mmHg 2013-10-12 MEDICATIONS Unknown Medications RESULTS No Results PROCEDURES Procedure Date Ordered Result Body Site COMPREHENSIVE CARE MANAGEMENT HAP - OCK Oct 12, 2013 INSTRUCTIONS MEDICATIONS ADMINISTERED No Known Medications [...]
--- OUTSIDE RECORDS SUMMARY | 2019-07-15 19:44 | XMS REPORT ---
Author Author Shan Burger [facility] Organization [facility] Address [address] [place], [place] [id number] Care Team Providers Care Wildlife Ecologist Name Role Phone Tao [facility] Unavailable PROBLEMS Type Condition ICD9-CM Code DMH70-PO Code Onset Dates Condition S tatus SNOMED Code Problem Low hemoglobin D64.9 Active 18163 7008 Problem Long-term use of high-risk medication Z79.899 Active 320644480 Problem Pain in left knee M25.562 Active 30 078508 Problem Chronic fatigue R53.82 Active 5270 2003 Problem Seasonal allergic rhinitis due to pollen J30.1 Active 38831059 Problem Bipolar disorder with depression F31.30 Active 81324858 Problem Routine gynecological examination Z01.419 Active 470479489 Problem High risk medication use Z79.899 Activ e 355354634 Problem Unspecified mood [affective] disorder F39 Active 867558094 Problem Iron deficiency anemia due to chronic blood loss D 50.0 Active 02749580 Problem Attention deficit hyperactivity disorder (ADHD), combi cosmo type F90.2 Active 882636246 Problem Bipolar disorder, unspecified F31.9 Active 18982318 Problem Generalized anxiety disorder F41.1 A ctive 69893237 Problem Amenorrhea N91.2 Active 94006320 Problem Schizoaffective disorder F25.9 Activ e 84240870 Problem Well woman exam Z01.419 Active 3103 53986 Problem Schizoaffective disorder, bipolar type F25.0 Active 85631210 Problem care, first in first trimester Z34.01 Active 576314577 Problem Vitamin D deficiency E55.9 Active 37582965 Problem Anxiety F41.9 Active 85109861 Problem Pain in right knee M25.561 Active 8 2948947 Problem General counseling and advice on female contraception Z30.09 Active 99056509 Problem Social phobia F40.10 Active 817797 02 Problem Relationship problem with family member Z63.8 Active 741986553 Problem Chronic post-traumatic stress disorder (PTSD) F43. 12 Active 630582488 Problem Positive test Z32.01 Active 945799523 ALLERGIES No Information ENCOUNTERS Encounter Location Date Diagnosis [facility] [id number] [place] [phone] July, [facility] [address] [place] [id number] [place] [phone] July, [facility] [address] [phone] July, [facility] [address] [facility] [id number] [address] [place] [phone] Jun, [facility] [address] [place] [id number] [place] [phone] Jun, [facility] [address] [place] [id number] [place] [phone] Jun, Third trimester Z3 4.93 [facility] [address] [place] [id number] [address] [place] [phone] Jun, [facility] [address] [address] Jun, Third trimester Z3 4.93 ; 35 weeks gestation of Z3A.35 and Palpitations R00.2 [place] [id number] [place] [phone] Jun, [facility] [address] [place] [id number] [place] [phone] May, [facility] [address] [place] [id number] [place] [phone] May, Third trimester Z3 4.93 ; 33 weeks gestation of Z3A.33 ; Anxiety F41.9 and Encounter for immunization Z23 [facility] [address] [place] [id number] [place] [phone] May, [facility] [address] [place] [id number] [address] [place] [phone] 24 May, 2019 [facility] [address] [address] 20 May, 2019 [facility] [address] [address] 17 May, 2019 [place] [address] [address] 16 May, 2019 [facility] [address] [address] 16 May, 2019 [place] [address] [address] 12 May, 2019 [place] [address] [place] [id number] [place] [phone] 10 May, 2019 [place] [address] [address] 10 May, 2019 care, first pregnan cy in third trimester Z34.03 ; 31 weeks gestation of Z3A.31 and Decreased movements in third trimester, single or unspecified fetus O36.8130 [place] [address] [address] 06 May, 2019 Fever and chills R50.9 and F mel-like symptoms R68.89 [place] [address] [place] [id number] [place] [phone] 11 Apr, 2019 [place] [address] [address] 11 Apr, 2019 Second trimester Z 34.92 and 27 weeks gestation of Z3A.27 [place] [address] [phone] 15 Mar, 2019 Acute non-recurrent maxillar y sinusitis J01.00 and Cough R05 [place] [address] [address] Mar, [facility] [address] [facility] [id number] [address] [place] [phone] Mar, [facility] [address] [facility] [id number] [address] [place] [phone] Mar, [facility] [address] [facility] [id number] [address] [place] [address] Mar, care in second trim gabo Z34.92 and 23 weeks gestation of Z3A.23 [place] [address] [facility] [id number] [address] [place] [phone] Feb, care in second trim gabo Z34.92 and 19 weeks gestation of Z3A.19 [place] [address] [facility] [id number] [address] [place] [phone] Feb, [place] [address] [facility] [id number] [address] [place] [phone] Feb, care in second trim gabo Z34.92 ; 19 weeks gestation of Z3A.19 and Encounter for immunization Z23 [place] [address] [facility] [id number] [address] [place] [phone] Feb, Dental examination Z01.20 [place] [id number] [facility] [id number] [address] [place] [phone] Feb, [place] [address] [facility] [id number] [address] [place] [phone] Jan, [facility] [address] [facility] [id number] [address] [place] [phone] Jan, care in second trim gabo Z34.92 and 15 weeks gestation of Z3A.15 [place] [address] [facility] [id number] [address] [place] [phone] Dec, First trimester Z3 4.91 ; 11 weeks gestation of Z3A.11 and Nausea/vomiting in O21.9 [facility] [address] [facility] [id number] [address] [place] [phone] Dec, [facility] [address] [id number] [address] [place] [phone] Dec, [facility] [address] [id number] [address] [place] [phone] Dec, care, first pregnan cy in first trimester Z34.01 [facility] [address] [id number] [address] [place] [phone] Dec, [facility] [address] [id number] [address] [place] [phone] Dec, Chronic post-traumatic stres s disorder (PTSD) F43.12 ; Relationship problem with family member Z63.8 and Positive test Z32.01 [facility] [address] [id number] [address] [place] [phone] 26 Nov, 2018 [facility] [address] [id number] [address] [place] [phone] 26 Nov, 2018 care, first pregnan cy in first trimester Z34.01 [facility] [address] [id number] [address] [place] [phone] Nov, [facility] [address] [id number] [address] [place] [phone] 25 Nov, 2018 care, first pregnan cy in first trimester Z34.01 and 7 weeks gestation of Z3A.01 [facility] [address] [id number] [address] [place] [phone] 24 Nov, 2018 [facility] [address] [id number] [address] [place] [id number] 20 Nov, 2018 [facility] [address] [id number] [address] [place] [phone] 18 Nov, 2018 [facility] [address] [id number] [address] [place] [phone] 13 Nov, 2018 [facility] [address] [id number] [address] [place] [phone] 13 Nov, 2018 [place] [address] [facility] [id number] [address] [place] [phone] 13 Nov, 2018 Positive test Z32. 01 ; Well woman exam with routine gynecological exam Z01.419 ; Amenorrhea N91.2 ; , unspecified gestational age Z34.90 ; Encounter for smoking cessation counseling Z71.6 ; Acute vaginitis N76.0 and Other specified bacterial agents as the cause of diseases classified elsewhere B96.89 [place] [address] [id number] [address] [place] [phone] 11 Nov, 2018 [place] [address] [id number] [address] [place] [phone] 11 Nov, 2018 [place] [address] [facility] [id number] [address] [place] [phone] 12 Oct, 2018 Bipolar disorder with depres arlen F31.30 [place] [address] [id number] [address] [place] [address] Oct, Bipolar disorder with depres arlen F31.30 ; Chronic post-traumatic stress disorder (PTSD) F43.12 and Relationship problem with family member Z63.8 [place] [address] [facility] [id number] [address] [place] [phone] Aug, Bipolar disorder with depres arlen F31.30 ; Chronic post-traumatic stress disorder (PTSD) F43.12 and Relationship problem with family member Z63.8 [place] [address] [facility] [id number] [address] [place] [phone] Mar, Schizoaffective disorder, bi polar type F25.0 ; Social phobia F40.10 ; Chronic post-traumatic stress disorder (PTSD) F43.12 and Relationship problem with family member Z63.8 [facility] [id number] [address] Oct, Pain in right shoulder M25.511 and Bipol ar disorder with depression F31.30 [place] [address] [id number] [address] [place] [phone] July, [facility] [address] [facility] [id number] [address] [place] [phone] July, [facility] [address] [facility] [id number] [address] [place] [phone] July, Well woman exam Z01.419 and Vaginal discharge N89.8 [facility] [address] [facility] [id number] [address] [place] [phone] Jun, [facility] [address] [facility] [id number] [address] [place] [phone] Mar, [facility] [address] [facility] [id number] [address] [place] [phone] May, Bipolar disorder, unspecifie d F31.9 [facility] [address] [facility] [id number] [address] [place] [phone] May, Bipolar disorder, unspecifie d F31.9 ; Attention deficit hyperactivity disorder (ADHD), combined type F90.2 and Schizoaffective disorder F25.9 [place] [id number] [facility] [id number] [address] [place] [phone] May, Bipolar disorder with depres arlen F31.30 [facility] [address] [facility] [id number] [address] [place] [phone] May, Bipolar disorder, unspecifie d F31.9 ; Attention deficit hyperactivity disorder (ADHD), combined type F90.2 and Schizoaffective disorder F25.9 [facility] [address] [facility] [id number] [address] [place] [phone] Apr, Seasonal allergic rhinitis d ue to pollen J30.1 [facility] [address] [facility] [id number] [address] [place] [phone] Apr, [facility] [address] [facility] [id number] [address] [place] [phone] Mar, Attention deficit disorder ( ADD) without 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 ; Bipolar disorder with depression F31.30 and Generalized anxiety disorder F41.1 [facility] [address] [facility] [id number] [address] [place] [phone] Mar, [facility] [address] [facility] [id number] [address] [place] [phone] Feb, Unspecified mood [affective] disorder F39 [facility] [address] [facility] [id number] [address] [place] [phone] Feb, Unspecified mood [affective] disorder F39 [facility] [address] [facility] [id number] [address] [place] [phone] Feb, [facility] [address] [facility] [id number] [address] [place] [phone] Jan, Amenorrhea N91.2 ; Vitamin D deficiency E55.9 and Iron deficiency anemia due to chronic blood loss D50.0 [facility] [address] [facility] [id number] [address] [place] [phone] Jan, Encounter for test Z32.00 [facility] [address] [facility] [id number] [address] [place] [phone] Dec, Unspecified mood [affective] disorder F39 ; Bipolar disorder, unspecified F31.9 and Attention deficit hyperactivity disorder (ADHD), combined type F90.2 [facility] [address] [facility] [id number] [address] [place] [phone] Nov, [facility] [address] [facility] [id number] [address] [place] [phone] Nov, [facility] [address] [facility] [id number] [address] [place] [phone] Nov, [facility] [address] [facility] [id number] [address] [place] [phone] Nov, [facility] [address] [facility] [id number] [address] [place] [phone] Nov, [facility] [address] [facility] [id number] [address] [place] [phone] Nov, Dysuria R30.0 [facility] [address] [facility] [id number] [address] [place] [phone] Oct, [facility] [address] [facility] [id number] [address] [place] [phone] Oct, [facility] [address] [facility] [id number] [address] [place] [phone] Sep, [facility] [address] [facility] [id number] [address] [place] [phone] Sep, Bipolar disorder, unspecifie d F31.9 and Schizoaffective disorder F25.9 [facility] [address] [facility] [id number] [address] [place] [phone] Sep, [place] [address] [facility] [id number] [address] [place] [phone] Aug, Unspecified mood [affective] disorder F39 [facility] [address] [facility] [id number] [address] [place] [phone] Aug, [facility] [address] [facility] [id number] [address] [place] [phone] Aug, General counseling and advic e on female contraception Z30.09 and Iron deficiency anemia due to chronic blood loss D50.0 [place] [id number] [facility] [id number] [address] [place] [phone] July, Routine gynecological examin ation Z01.419 ; General counseling and advice on female contraception Z30.09 ; High risk medication use Z79.899 ; Other specified bacterial agents as the cause of diseases classified elsewhere B96.89 and Acute vaginitis N76.0 [facility] [address] [facility] [id number] [address] [place] [phone] July, Attention deficit hyperactiv ity disorder (ADHD), combined type F90.2 ; Bipolar disorder, unspecified F31.9 and Schizoaffective disorder F25.9 [place] [address] [facility] [id number] [address] [place] [phone] July, Unspecified mood [affective] disorder F39 [facility] [address] [facility] [id number] [address] [place] [phone] July, [place] [address] [facility] [id number] [address] [place] [phone] July, [place] [address] [facility] [id number] [address] [place] [phone] July, Low hemoglobin D64.9 [place] [address] [facility] [id number] [address] [place] [phone] July, [place] [address] [place] [id number] [address] [place] [phone] July, General counselling and advi ce on contraception Z30.09 ; Pain in left knee M25.562 ; Pain in right knee M25.561 ; Chronic fatigue R53.82 and Vitamin D deficiency E55.9 [place] [address] [facility] [id number] [address] [place] [address] Jun, Fatigue R53.83 [place] [address] [facility] [id number] [address] [place] [phone] Jun, Fatigue R53.83 ; Low hemoglo bin D64.9 ; Long-term use of high-risk medication Z79.899 ; Sore throat J02.9 and Fever, low grade R50.9 [facility] [address] [facility] [id number] [address] [place] [phone] Jun, Unspecified mood [affective] disorder F39 [place] [address] [facility] [id number] [address] [place] [phone] May, Unspecified mood [affective] disorder F39 [place] [address] [facility] [id number] [address] [place] [phone] May, [place] [address] [facility] [id number] [address] [place] [phone] May, Attention deficit hyperactiv ity disorder (ADHD), combined type F90.2 ; Bipolar disorder, unspecified F31.9 and Schizoaffective disorder F25.9 [facility] [address] [id number] [address] [place] [phone] May, [facility] [address] [id number] [address] [place] [phone] Apr, [facility] [address] [id number] [address] [place] [phone] Apr, [facility] [address] [id number] [address] [place] [phone] Apr, [facility] [address] [id number] [address] [place] [phone] Apr, [facility] [address] [id number] [place] [id number] Apr, Ingestion of unknown drug T5 0.901A [facility] [address] [id number] [address] [place] [phone] Apr, [facility] [address] [id number] [address] [place] [phone] Apr, Unspecified mood [affective] disorder F39 [facility] [address] [id number] [address] [place] [phone] 16 Apr, 2015 Unspecified mood [affective] disorder F39 [facility] [address] [id number] [address] [place] [phone] Apr, Unspecified mood [affective] disorder F39 [facility] [address] [facility] [id number] [address] [place] [phone] 03 Apr, 2015 manager terminal use of drug Z79.89 9 ; Attention deficit hyperactivity disorder (ADHD), combined type F90.2 ; Bipolar disorder, unspecified F31.9 and Schizoaffective disorder F25.9 [facility] [address] [id number] [address] [place] [phone] Mar, Unspecified mood [affective] disorder F39 [facility] [address] [id number] [place] [id number] Mar, Menstrual period late N91.0 and High risk sexual behavior Z72.51 [facility] [address] [id number] [address] [place] [phone] Mar, Unspecified mood [affective] disorder F39 [facility] [address] [id number] [address] [place] [phone] Mar, Unspecified mood [affective] disorder F39 [facility] [address] [id number] [address] [place] [phone] Mar, Unspecified mood [affective] disorder [address] [id number] [address] [place] [phone] Feb, [facility] [address] [id number] [address] [place] [id number] Feb, Attention deficit hyperactiv ity disorder (ADHD), combined type F90.2 ; Episodic mood disorder 296.90 and Bipolar disorder, unspecified F31.9 [facility] [address] [id number] [address] [place] [phone] Feb, Major depressive disorder, r ecurrent, moderate F33.1 [facility] [address] [id number] [address] [place] [phone] Feb, Unspecified mood [affective] disorder F39 [facility] [address] [id number] [address] [place] [id number] Feb, Unspecified mood [affective] disorder F39 [facility] [address] [id number] [address] [place] [phone] Feb, [facility] [address] [id number] [address] [place] [phone] Feb, Unspecified mood [affective] disorder F39 [facility] [address] [id number] [address] [place] [id number] Feb, Bipolar disorder, unspecifie d F31.9 [facility] [address] [id number] [address] [place] [phone] Jan, [facility] [address] [id number] [address] [place] [id number] Jan, Unspecified mood [affective] disorder F39 [facility] [address] [id number] [address] [place] [phone] Jan, Unspecified mood [affective] disorder F39 [facility] [address] [id number] [address] [place] [id number] Jan, Bipolar disorder, unspecifie d F31.9 [facility] [address] [id number] [address] [place] [phone] Jan, Attention deficit hyperactiv ity disorder (ADHD), combined type F90.2 and Bipolar disorder, unspecified F31.9 [facility] [address] [id number] [address] [place] [phone] Jan, [facility] [address] [id number] [address] [place] [address] Jan, [facility] [address] [id number] [address] [place] [address] Jan, Unspecified mood [affective] disorder F39 [facility] [address] [id number] [address] [place] [address] Dec, Unspecified mood [affective] disorder F39 [facility] [address] [id number] [address] [place] [address] Dec, Unspecified mood [affective] disorder F39 [facility] [address] [id number] [address] [place] [address] Dec, Unspecified mood [affective] disorder F39 [facility] [address] [address] 14 Dec, 2014 [facility] [address] [address] Dec, Viral upper respiratory trac t infection J06.9 ; Encounter for immunization Z23 and Smoker F17.200 [facility] [address] [address] Dec, [facility] [address] [address] Dec, Schizoaffective disorder F25 .9 and Attention deficit hyperactivity disorder (ADHD), combined type F90.2 [place] [address] [address] Nov, [place] [address] [address] Nov, Unspecified mood [affective] disorder F39 [facility] [address] [address] Nov, Schizoaffective disorder, un specified 295.70 ; Generalized anxiety disorder 300.02 and Attention deficit disorder of childhood with hyperactivity 314.01 [facility] [address] [address] Oct, [facility] [address] [address] Oct, [facility] [address] [address] Oct, [facility] [address] [address] Oct, Affective disorder 296.90 [facility] [address] [address] Oct, Screen for STD (sexually tra nsmitted disease) V74.5 and Encounter for counseling regarding contraception V25.09 [facility] [address] [place] [address] Sep, [facility] [address] [id number] [address] [place] [address] Sep, [facility] [address] [id number] [address] [place] [address] Sep, Episodic mood disorder 296.9 0 [facility] [address] [id number] [address] [place] [address] Sep, [facility] [address] [id number] [address] [place] [address] Sep, [facility] [address] [id number] [address] [place] [address] Aug, [facility] [address] [id number] [address] [place] [address] Aug, [facility] [address] [id number] [address] [place] [address] Aug, [facility] [address] [id number] [address] [place] [address] Aug, Episodic mood disorder 296.9 0 [facility] [address] [id number] [address] [place] [address] Aug, [facility] [address] [facility] [id number] [address] [place] [address] July, Allergic rhinitis 477.9 [facility] [address] [id number] [address] [place] [address] July, Schizoaffective disorder, un specified 295.70 [facility] [address] [id number] [address] [place] [address] July, [facility] [address] [facility] [id number] [address] [place] [address] Jun, [facility] [address] [id number] [address] [place] [address] Jun, [facility] [address] [id number] [address] [place] [address], [place] [address] May, [facility] [address] [id number] [address] [place] [address], [place] [address] May, [facility] [address] [id number] [address] [place] [address], [place] [address] May, [facility] [address] [id number] [address] [place] [address], [place] [address] May, [facility] [address] [id number] [address] [place] [address], [place] [address] Apr, [facility] [address] [id number] [address] [place] [address], [place] [address] Apr, [facility] [address] [id number] [address] [place] [address], [place] [address] Apr, [facility] [address] [id number] [address] [place] [address], [place] [address] Apr, [facility] [address] [id number] [address] [place] [address], [place] [address] Apr, [facility] [address] [id number] [address] [place] [address], [place] [address] Apr, [facility] [address] [id number] [address] [place] [address], [place] [address] Apr, [facility] [address] [id number] [address] [place] [address], [place] [address] Apr, [facility] [address] [id number] [address] [place] [address], [place] [address] Mar, [facility] [address] [id number] [address] [place] [address], [place] [address] Mar, [facility] [address] [id number] [address] [place] [address], [place] [address] Mar, [facility] [address] [id number] [address] [place] [address] [place] [address] 08 Mar, 2014 [facility] [address] [id number] [address] [place] [address], [place] [address] 31 Feb, 2014 [facility] [address] [id number] [address] [place] [address], [place] [address] Feb, [facility] [address] [id number] [address] [place] [address], [place] [address] Feb, [facility] [address] [id number] [address] [place] [address], [place] [address] Feb, [facility] [address] [id number] [address] [place] [address], [place] [address] Feb, [facility] [address] [id number] [address] [place] [address], [place] [address] Feb, [facility] [address] [id number] [address] [place] [address], [place] [address] Feb, [facility] [address] [id number] [address] [place] [address], [place] [address] Feb, [facility] [address] [id number] [address] [place] [address], [place] [address] Feb, [facility] [address] [id number] [address] [place] [address], [place] [address] Feb, [facility] [address] [id number] [address] [place] [address], [place] [address] Feb, [facility] [address] [id number] [address] [place] [address], [place] [address] Jan, [facility] [address] [id number] [address] [place] [address], [place] [address] Jan, [facility] [address] [id number] [address] [place] [address], [place] [address] Dec, [facility] [address] [id number] [address] [place] [address], [place] [address] Dec, [facility] [address] [id number] [address] [place] [address], [place] [address] Dec, [facility] [address] [id number] [address] [place] [address], [place] [address] Dec, [facility] [address] [id number] [address] [place] [address], [place] [address] Dec, [facility] [address] [id number] [address] [place] [address], [place] [address] Dec, [facility] [address] [id number] [address] [place] [address], [place] [address] Dec, [facility] [address] [id number] [address] [place] [address], [place] [address] Dec, [facility] [address] [id number] [address] [place] [address], [place] [address] Dec, [facility] [address] [id number] [address] [place] [address], [place] [address] Dec, [facility] [address] [id number] [address] [place] [address], [place] [address] Dec, [facility] [address] [id number] [address] [place] [address], [place] [address] Dec, [facility] [address] [id number] [address] [place] [address], [place] [address] Dec, [facility] [address] [id number] [address] [place] [address], [place] [address] Dec, [facility] [address] [id number] [address] [place] [address], [place] [address] Dec, [facility] [address] [id number] [address] [place] [address], [place] [address] Dec, [facility] [address] [id number] [address] [place] [address], [place] [address] Dec, [facility] [address] [id number] [address] [place] [address], [place] [address] 08 Dec, 2013 [facility] [address] [id number] [address] [place] [address], [place] [address] 07 Dec, 2013 [facility] [address] [id number] [address] [place] [address], [place] [address] 07 Dec, 2013 [facility] [address] [id number] [address] [place] [address], [place] [address] Dec, [facility] [address] [id number] [address] [place] [address], [place] [address] Dec, [facility] [address] [id number] [address] [place] [address], [place] [address] Dec, [facility] [address] [id number] [address] [place] [address], [place] [address] Dec, [facility] [address] [id number] [address] [place] [address], [place] [address] 22 Nov, 2013 [facility] [address] [id number] [address] [place] [address], [place] [address] 22 Sep, 2013 [facility] [address] [id number] [address] [place] [address], [place] [address] 22 Sep, 2013 [facility] [address] [id number] [address] [place] [address], [place] [address] 22 Sep, 2013 [facility] [address] [id number] [address] [place] [address], [place] [address] 22 Sep, 2013 [facility] [address] [id number] [address] [place] [address], [place] [address] 22 Sep, 2013 [facility] [address] [id number] [address] [place] [address], [place] [address] 17 Sep, 2013 [facility] [address] [id number] [address] [place] [address], [place] [address] 17 Sep, 2013 [facility] [address] [id number] [address] [place] [address], [place] [address] 15 Sep, 2013 [facility] [address] [id number] [facility] [place] [place] [address] 15 Nov, 2013 [facility] [address] [id number] [address] [place] [address], [place] [address] Nov, 2013 [facility] [address] [id number] [facility] [place] [place] [address] Nov, [facility] [address] [id number] [address] [place] [address], [place] [address] Nov, [facility] [address] [id number] [address] [place] [address], [place] [address] Nov, [facility] [address] [id number] [address] [place] [address], [place] [address] Oct, [facility] [address] [id number] [address] [place] [address], [place] [address] Oct, [facility] [address] [id number] [address] [place] [address], [place] [address] Oct, [facility] [address] [id number] [address] [place] [address], [place] [address] Oct, [facility] [address] [id number] [address] [place] [address], [place] [address] Oct, [facility] [address] [id number] [address] [place] [address], [place] [address] Oct, [facility] [address] [id number] [address] [place] [address], [place] [address] Oct, [facility] [address] [id number] [address] [place] [address], [place] [address] Oct, [facility] [address] [id number] [address] [place] [address], [place] [address] Sep, [facility] [address] [id number] [address] [place] [address], [place] [address] Sep, [facility] [address] [id number] [address] [place] [address], [place] [address] Sep, [facility] [address] [id number] [address] [place] [address], [place] [address] Sep, [facility] [address] [id number] [address] [place] [address], [place] [address] Sep, [facility] [address] [id number] [address] [place] [address], [place] [address] Sep, [facility] [address] [id number] [address] [place] [address], [place] [address] Aug, [facility] [address] [id number] [address] [place] [address], [place] [address] Aug, [facility] [address] [id number] [address] [place] [address], [place] [address] July, [facility] [address] [id number] [address] [place] [address], [place] [address] July, [facility] [address] [id number] [address] [place] [address], [place] [address] July, [facility] [address] [id number] [address] [place] [address], [place] [address] July, [facility] [address] [id number] [address] [place] [address], [place] [address] July, [facility] [address] [id number] [address] [place] [address], [place] [address] July, [facility] [address] [id number] [address] [place] [address], [place] [address] July, [facility] [address] [id number] [address] [place] [address], [place] [address] July, [facility] [address] [id number] [address] [place] [address], [place] [address] July, [facility] [address] [id number] [address] [place] [address], [place] [address] July, [facility] [address] [id number] [address] [place] [address], [place] [address] July, [facility] [address] [id number] [address] [place] [address], [place] [address] July, [facility] [address] [id number] [address] [place] [address], [place] [address] July, [facility] [address] [id number] [address] [place] [address], [place] [address] July, [facility] [address] [id number] [address] [place] [address], [place] [address] July, [facility] [address] [id number] [address] [place] [address], [place] [address] July, [facility] [address] [id number] [address] [place] [address], [place] [address] July, [facility] [address] [id number] [address] [place] [address], [place] [address] July, [facility] [address] [id number] [address] [place] [address], [place] [address] Jun, [facility] [address] [id number] [address] [place] [address], [place] [address] Jun, [facility] [address] [id number] [address] [place] [address], [place] [address] Jun, [facility] [address] [id number] [address] [place] [address], [place] [address] Jun, [facility] [address] [id number] [address] [place] [address], [place] [address] Jun, [facility] [address] [id number] [address] [place] [address], [place] [address] Jun, [facility] [address] [id number] [address] [place] [address], [place] [address] Jun, [facility] [address] [id number] [address] [place] [address], [place] [address] Jun, [facility] [address] [id number] [facility] [place] [address] 10 Jun, 2013 [facility] [address] [id number] [facility] [place] [place] [address] Jun, [facility] [address] [id number] [facility] [place] [place] [address] Jun, [facility] [address] [id number] [address] [place] [address], [place] [address] Jun, [facility] [address] [id number] [facility] [place] [place] [address] May, [facility] [address] [id number] [address] [place] [address], [place] [address] May, [facility] [address] [id number] [address] [place] [address], [place] [address] May, [facility] [address] [id number] [address] [place] [address], [place] [address] May, [facility] [address] [id number] [address] [place] [address], [place] [address] May, [facility] [address] [id number] [address] [place] [address], [place] [address] May, [facility] [address] [id number] [address] [place] [address], [place] [address] May, [facility] [address] [id number] [address] [place] [address], [place] [address] May, [facility] [address] [id number] [address] [place] [address], [place] [address] May, [facility] [address] [id number] [address] [place] [address], [place] [address] May, [facility] [address] [id number] [address] [place] [address], [place] [address] Apr, [facility] [address] [id number] [address] [place] [address], [place] [address] Apr, [facility] [address] [id number] [address] [place] [address], [place] [address] Apr, [facility] [address] [id number] [address] [place] [address], [place] [address] Apr, [facility] [address] [id number] [address] [place] [address], [place] [address] Apr, [facility] [address] [id number] [address] [place] [address], [place] [address] Apr, [facility] [address] [id number] [address] [place] [address], [place] [address] Apr, [facility] [address] [id number] [address] [place] [address], [place] [address] Apr, [facility] [address] [id number] [address] [place] [address], [place] [address] Apr, [facility] [address] [id number] [address] [place] [address], [place] [address] Apr, [facility] [address] [id number] [address] [place] [address], [place] [address] Apr, [facility] [address] [id number] [address] [place] [address], [place] [address] Apr, [facility] [address] [id number] [address] [place] [address], [place] [address] Apr, [facility] [address] [id number] [address] [place] [address], [place] [address] Apr, [facility] [address] [id number] [address] [place] [address], [place] [address] Mar, [facility] [address] [id number] [address] [place] [address], [place] [address] Mar, [facility] [address] [id number] [address] [place] [address], [place] [address] Mar, [facility] [address] [id number] [address] [place] [address], [place] [address] Mar, [facility] [address] [id number] [address] [place] [address], [place] [address] Mar, [facility] [address] [id number] [address] [place] [address], [place] [address] Mar, [facility] [address] [id number] [address] [place] [address], [place] [address] Mar, [facility] [address] [id number] [address] [place] [address], [place] [address] Mar, [facility] [address] [id number] [address] [place] [address], [place] [address] Mar, [facility] [address] [id number] [address] [place] [address], [place] [address] Mar, [facility] [address] [id number] [address] [place] [address], [place] [address] Mar, [facility] [address] [id number] [address] [place] [address], [place] [address] Mar, [facility] [address] [id number] [address] [place] [address], [place] [address] Feb, [facility] [address] [id number] [address] [place] [address], [place] [address] Feb, [facility] [address] [id number] [address] [place] [address], [place] [address] Feb, [facility] [address] [id number] [address] [place] [address], [place] [address] Feb, [facility] [address] [id number] [address] [place] [address], [place] [address] Feb, [facility] [address] [id number] [address] [place] [address], [place] [address] Feb, [facility] [address] [id number] [address] [address] Feb, [facility] [address] [id number] [address] [place] [address], [place] [address] Feb, [facility] [address] [id number] [address] [place] [address], [place] [address] 05 Feb, 2013 [facility] [address] [id number] [address] [place] [address] Feb, [facility] [address] [id number] [address] [place] [address] Feb, [facility] [address] [id number] [address] [place] [address], [place] [address] Jan, [facility] [address] [id number] [address] [place] [address] Jan, [facility] [address] [id number] [address] [place] [address], [place] [address] Jan, [facility] [address] [id number] [address] [place] [address] Jan, [facility] [address] [id number] [address] [place] [address] Jan, [facility] [address] [id number] [address] [place] [address] Jan, [facility] [address] [id number] [address] [place] [address] Jan, [facility] [address] [id number] [address] [place] [address] Dec, [facility] [address] [id number] [address] [place] [address], [place] [address] 17 Dec, 2012 [facility] [address] [id number] [address] [place] [address] Dec, [facility] [address] [id number] [address] [place] [id number] 10 Dec, 2012 [facility] [address] [id number] [address] [place] [address], [place] [address] Dec, [facility] [address] [id number] [address] [place] [address], [place] [address] Nov, [facility] [address] [id number] [address] [place] [address], [place] [address] Oct, [facility] [address] [id number] [address] [place] [address], [place] [address] Oct, [facility] [address] [id number] [address] [place] [address], [place] [address] Oct, [facility] [address] [id number] [address] [place] [address], [place] [address] Oct, [facility] [address] [id number] [address] [place] [address], [place] [address] Oct, [facility] [address] [id number] [address] [place] [address], [place] [address] Sep, [facility] [address] [id number] [address] [place] [address], [place] [address] Sep, [facility] [address] [id number] [address] [place] [address], [place] [address] Sep, [facility] [address] [id number] [address] [place] [address], [place] [address] Sep, [facility] [address] [id number] [address] [place] [address], [place] [address] Aug, [facility] [address] [id number] [address] [place] [address], [place] [address] Aug, [facility] [address] [id number] [address] [place] [address], [place] [address] Aug, [facility] [address] [id number] [address] [place] [address], [place] [address] Aug, [facility] [address] [id number] [address] [place] [address], [place] [address] Aug, [facility] [address] [id number] [address] [place] [address], [place] [address] July, [facility] [address] [id number] [address] [place] [address], [place] [address] July, [facility] [address] [id number] [address] [place] [address], [place] [address] July, [facility] [address] [id number] [address] [place] [address], [place] [address] July, [facility] [address] [id number] [address] [place] [address], [place] [address] Jun, [facility] [address] [id number] [address] [place] [address], [place] [address] Jun, [facility] [address] [id number] [address] [place] [address], [place] [address] May, [facility] [address] [id number] [address] [place] [address], [place] [address] May, [facility] [address] [id number] [address] [place] [address], [place] [address] Apr, [facility] [address] [id number] [address] [place] [address], [place] [address] Apr, [facility] [address] [id number] [address] [place] [address], [place] [address] Mar, [facility] [address] [id number] [address] [place] [address], [place] [address] Mar, [facility] [address] [id number] [address] [place] [address], [place] [address] Feb, [facility] [address] [id number] [address] [place] [address], [place] [address] Feb, [facility] [address] [id number] [address] [place] [address], [place] [address] Feb, [facility] [address] [id number] [address] [place] [address] [place] [address] Feb, [facility] [address] [id number] [address] [place] [address], [place] [address] Feb, [facility] [address] [id number] [address] [place] [address], [place] [address] Feb, [facility] [address] [id number] [address] [place] [address], [place] [address] Jan, [facility] [address] [id number] [address] [place] [address], [place] [address] Jan, [facility] [address] [id number] [address] [place] [address], [place] [address] Jan, [facility] [address] [id number] [address] [place] [address], [place] [address] Jan, [facility] [address] [id number] [address] [place] [address], [place] [address] Dec, [facility] [address] [id number] [address] [place] [address], [place] [address] Dec, [facility] [address] [id number] [address] [place] [address], [place] [address] 18 Nov, 2011 [facility] [address] [id number] [address] [place] [address], [place] [address] Nov, [facility] [address] [id number] [address] [place] [address], [place] [address] Nov, [facility] [address] [id number] [address] [place] [address], [place] [address] Oct, [facility] [address] [id number] [address] [place] [address], [place] [address] Sep, [facility] [address] [id number] [address] [place] [address], [place] [address] Aug, [facility] [address] [id number] [address] [place] [address], [place] [address] July, [facility] [address] [id number] [address] [place] [address], [place] [address] July, [facility] [address] [id number] [address] [place] [address], [place] [address] July, [facility] [address] [id number] [address] [place] [address], [place] [address] July, [facility] [address] [id number] [address] [place] [address], [place] [address] July, [facility] [address] [id number] [address] [place] [address], [place] [address] Jun, [facility] [address] [id number] [address] [place] [address], [place] [address] May, [facility] [address] [id number] [address] [place] [address], [place] [address] May, [facility] [address] [id number] [address] [place] [address], [place] [address] May, [facility] [address] [id number] [address] [place] [address], [place] [address] Apr, [facility] [address] [id number] [address] [place] [address], [place] [address] Apr, [facility] [address] [id number] [address] [place] [address], [place] [address] Mar, [facility] [address] [id number] [address] [place] [address], [place] [address] Feb, [facility] [address] [id number] [address] [place] [address], [place] [address] Feb, [facility] [address] [id number] [address] [place] [address], [place] [address] Feb, [facility] [address] [id number] [address] [place] [address], [place] [address] 15 Feb, 2011 [facility] [address] [id number] [place] [address] 14 Feb, 2011 [facility] [address] [id number] [address] [place] [address] Feb, [facility] [address] [id number] [address] [place] [address] Feb, [facility] [address] [id number] [address] [place] [address] 29 Jan, 2011 [facility] [address] [id number] [address] [place] [address] Jan, [facility] [address] [id number] [address] [place] [address] Jan, [facility] [address] [id number] [address] [place] [address] Aug, [facility] [address] [id number] [address] [place] [address] 30 Feb, 2010 [facility] [address] [id number] [address] [place] [address] Feb, [facility] [address] [id number] [address] [place] [address] Feb, [facility] [address] [id number] [address] [place] [address] Dec, [facility] [address] [id number] [address] [place] [address] Jun, [facility] [address] [id number] [address] [place] [address] Dec, [facility] [address] [id number] [address] [place] [address] Sep, IMMUNIZATIONS No Known Immunizations SOCIAL HISTORY [...]
--- OUTSIDE RECORDS SUMMARY | 2019-07-15 19:45 | XMS REPORT ---
Author Author Shan Can Doctor Organization [facility] Address Unknown Phone Unavailable Care Team Providers Care Finance Business Manager Name Role Phone Migration, Doctor Unavailable Unavailable PROBLEMS Type Condition ICD9-CM Code MNE78-NO Code Onset Dates Condition S tatus SNOMED Code Problem Low hemoglobin D64.9 Active 12234 7008 Problem Long-term use of high-risk medication Z79.899 Active 291203581 Problem Pain in left knee M25.562 Active 30 046919 Problem Chronic fatigue R53.82 Active 5270 2003 Problem Seasonal allergic rhinitis due to pollen J30.1 Active 52438511 Problem Bipolar disorder with depression F31.30 Active 66865545 Problem Routine gynecological examination Z01.419 Active 062565844 Problem High risk medication use Z79.899 Activ e 466778857 Problem Unspecified mood [affective] disorder F39 Active 250041500 Problem Iron deficiency anemia due to chronic blood loss D 50.0 Active 40673064 Problem Attention deficit hyperactivity disorder (ADHD), combi cosmo type F90.2 Active 819414170 Problem Bipolar disorder, unspecified F31.9 Active 16445734 Problem Generalized anxiety disorder F41.1 A ctive 78298402 Problem Amenorrhea N91.2 Active 44754563 Problem Schizoaffective disorder F25.9 Activ e 84617252 Problem Well woman exam Z01.419 Active 3103 64756 Problem Schizoaffective disorder, bipolar type F25.0 Active 46431084 Problem care, first in first trimester Z34.01 Active 438775926 Problem Vitamin D deficiency E55.9 Active 53368116 Problem Anxiety F41.9 Active 44366535 Problem Pain in right knee M25.561 Active 8 1323265 Problem General counseling and advice on female contraception Z30.09 Active 15284626 Problem Social phobia F40.10 Active 349058 02 Problem Relationship problem with family member Z63.8 Active 728353264 Problem Chronic post-traumatic stress disorder (PTSD) F43. 12 Active 799962178 Problem Positive test Z32.01 Active 244376528 ALLERGIES No Information ENCOUNTERS Encounter Location Date Diagnosis [facility] [address] [id number] [address] [place] [phone] July, [facility] [address] [facility] [id number] [address] [place] [address] July, [facility] [address] [facility] [id number] [address] [place] [address] July, [facility] [address] [id number] [address] [place] [address] Jun, [facility] [address] [facility] [id number] [address] [place] [address] Jun, [facility] [address] [facility] [id number] [address] [place] [phone] 14 Jun, 2019 [facility] [address] [facility] [id number] [address] [place] [address] Jun, [facility] [address] [facility] [id number] [address] [place] [address] May, [facility] [address] [facility] [id number] [address] [place] [address] May, Third trimester Z3 4.93 ; 33 weeks gestation of Z3A.33 ; Anxiety F41.9 and Encounter for immunization Z23 [facility] [address] [facility] [id number] [address] [place] [address] May, [facility] [address] [facility] [id number] [address] [place] [address] 24 May, 2019 [facility] [address] [facility] [id number] [address] [place] [address] 20 May, 2019 [facility] [address] [facility] [id number] [address] [place] [phone] 17 May, 2019 [facility] [address] [facility] [id number] [address] [place] [address] 16 May, 2019 [facility] [address] [place] [id number] [address] [place] [address] 16 May, 2019 [place] [address] [place] [id number] [address] [place] [address] 12 May, 2019 [place] [address] [place] [id number] [address] [place] [address] 10 May, 2019 [place] [address] [address] 10 May, 2019 care, first pregnan cy in third trimester Z34.03 ; 31 weeks gestation of Z3A.31 and Decreased movements in third trimester, single or unspecified fetus O36.8130 [place] [address] [address] 06 May, 2019 Fever and chills R50.9 and F mel-like symptoms R68.89 [place] [address] [address] 11 Apr, 2019 [place] [address] [place] [id number] [address] [place] [address] 11 Apr, 2019 Second trimester Z 34.92 and 27 weeks gestation of Z3A.27 [place] [address] [place] [id number] [address] [place] [address] 15 Mar, 2019 Acute non-recurrent maxillar y sinusitis J01.00 and Cough R05 [place] [address] [place] [id number] [address] [place] [address] 15 Mar, 2019 [place] [id number] [place] [address] 15 Mar, 2019 [place] [address] [place] [id number] [address] [place] [address] Mar, [place] [address] [place] [id number] [address] [place] [address] Mar, care in second trim gabo Z34.92 and 23 weeks gestation of Z3A.23 [place] [address] [facility] [id number] [address] [place] [address] Feb, care in second trim gabo Z34.92 and 19 weeks gestation of Z3A.19 [facility] [address] [id number] [address] [place] [address] Feb, [facility] [address] [id number] [address] [place] [address] Feb, care in second trim gabo Z34.92 ; 19 weeks gestation of Z3A.19 and Encounter for immunization Z23 [facility] [address] [id number] [address] [place] [address] Feb, Dental examination Z01.20 [facility] [address] [id number] [address] [place] [address] Feb, [place] [address] [facility] [id number] [address] [place] [address] Jan, [place] [address] [facility] [id number] [address] [place] [address] Jan, care in second trim gabo Z34.92 and 15 weeks gestation of Z3A.15 [place] [address] [facility] [id number] [address] [place] [address] Dec, First trimester Z3 4.91 ; 11 weeks gestation of Z3A.11 and Nausea/vomiting in O21.9 [place] [address] [id number] [address] [place] [address] Dec, [facility] [address] [id number] [address] [place] [address] Dec, [facility] [address] [facility] [id number] [address] [place] [address] Dec, care, first pregnan cy in first trimester Z34.01 [facility] [address] [id number] [address] [place] [address] Dec, [place] [address] [facility] [id number] [address] [place] [address] 08 Dec, 2018 Chronic post-traumatic stres s disorder (PTSD) F43.12 ; Relationship problem with family member Z63.8 and Positive test Z32.01 [facility] [address] [id number] [address] [place] [address] 26 Nov, 2018 [facility] [address] [id number] [address] [place] [address] Nov, care, first pregnan cy in first trimester Z34.01 [place] [address] [id number] [address] [place] [address] Nov, [place] [address] [id number] [address] [place] [address] Nov, care, first pregnan cy in first trimester Z34.01 and 7 weeks gestation of Z3A.01 [place] [address] [id number] [address] [place] [address] 24 Nov, 2018 [place] [address] [id number] [address] [place] [address] 20 Nov, 2018 [place] [address] [id number] [address] [place] [address] 18 Nov, 2018 [place] [address] [id number] [address] [place] [address] 13 Nov, 2018 [place] [address] [id number] [address] [place] [address] 13 Nov, 2018 [place] [address] [id number] [address] [place] [address] 13 Nov, 2018 Positive test Z32. 01 ; Well woman exam with routine gynecological exam Z01.419 ; Amenorrhea N91.2 ; , unspecified gestational age Z34.90 ; Encounter for smoking cessation counseling Z71.6 ; Acute vaginitis N76.0 and Other specified bacterial agents as the cause of diseases classified elsewhere B96.89 [place] [address] [facility] [id number] [address] [place] [address] Nov, [facility] [address] [id number] [address] [place] [address] Nov, [facility] [address] [facility] [id number] [address] [place] [address] Oct, Bipolar disorder with depres arlen F31.30 [facility] [address] [facility] [id number] [address] [place] [address] Oct, Bipolar disorder with depres arlen F31.30 ; Chronic post-traumatic stress disorder (PTSD) F43.12 and Relationship problem with family member Z63.8 [place] [address] [facility] [id number] [address] [place] [address] Aug, Bipolar disorder with depres arlen F31.30 ; Chronic post-traumatic stress disorder (PTSD) F43.12 and Relationship problem with family member Z63.8 [place] [address] [place] [id number] [address] [place] [address] Mar, Schizoaffective disorder, bi polar type F25.0 ; Social phobia F40.10 ; Chronic post-traumatic stress disorder (PTSD) F43.12 and Relationship problem with family member Z63.8 [facility] [id number] [place] [address] Oct, Pain in right shoulder M25.511 and Bipol ar disorder with depression F31.30 [facility] [address] [facility] [id number] [address] [place] [address] July, [facility] [address] [facility] [id number] [address] [place] [address] July, [place] [address] [facility] [id number] [address] [place] [address] July, Well woman exam Z01.419 and Vaginal discharge N89.8 [facility] [address] [facility] [id number] [address] [place] [address] Jun, [facility] [address] [id number] [address] [place] [address] Mar, [facility] [address] [facility] [id number] [address] [place] [address] May, Bipolar disorder, unspecifie d F31.9 [facility] [address] [facility] [id number] [address] [place] [address] May, Bipolar disorder, unspecifie d F31.9 ; Attention deficit hyperactivity disorder (ADHD), combined type F90.2 and Schizoaffective disorder F25.9 [facility] [address] [facility] [id number] [address] [place] [address] May, Bipolar disorder with depres arlen F31.30 [facility] [address] [facility] [id number] [address] [place] [address] May, Bipolar disorder, unspecifie d F31.9 ; Attention deficit hyperactivity disorder (ADHD), combined type F90.2 and Schizoaffective disorder F25.9 [facility] [address] [facility] [id number] [address] [place] [address] Apr, Seasonal allergic rhinitis d ue to pollen J30.1 [facility] [address] [facility] [id number] [address] [place] [address] Apr, [facility] [address] [facility] [id number] [address] [place] [address] Mar, Attention deficit disorder ( ADD) without 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 ; Bipolar disorder with depression F31.30 and Generalized anxiety disorder F41.1 [facility] [address] [facility] [id number] [address] [place] [address] Mar, [facility] [address] [facility] [id number] [address] [place] [address] Feb, Unspecified mood [affective] disorder F39 [facility] [address] [facility] [id number] [address] [place] [phone] Feb, Unspecified mood [affective] disorder F39 [facility] [address] [id number] [address] [place] [address] Feb, [facility] [address] [facility] [id number] [address] [place] [address] Jan, Amenorrhea N91.2 ; Vitamin D deficiency E55.9 and Iron deficiency anemia due to chronic blood loss D50.0 [facility] [address] [facility] [id number] [address] [place] [address] Jan, Encounter for test Z32.00 [facility] [address] [facility] [id number] [address] [place] [address] Dec, Unspecified mood [affective] disorder F39 ; Bipolar disorder, unspecified F31.9 and Attention deficit hyperactivity disorder (ADHD), combined type F90.2 [facility] [address] [facility] [id number] [address] [place] [address] Nov, [facility] [address] [facility] [id number] [address] [place] [address] Nov, [facility] [address] [facility] [id number] [address] [place] [address] Nov, [facility] [address] [facility] [id number] [address] [place] [address] Nov, [facility] [address] [facility] [id number] [address] [place] [address] Nov, [facility] [address] [facility] [id number] [address] [place] [address] Nov, Dysuria R30.0 [facility] [address] [facility] [id number] [address] [place] [address] Oct, [facility] [address] [facility] [id number] [address] [place] [address] Oct, [facility] [address] [facility] [id number] [address] [place] [address] Sep, [facility] [address] [id number] [address] [place] [address] Sep, Bipolar disorder, unspecifie d F31.9 and Schizoaffective disorder F25.9 [facility] [address] [id number] [address] [place] [address] Sep, [facility] [address] [id number] [address] [place] [address] Aug, Unspecified mood [affective] disorder F39 [place] [address] [id number] [address] [place] [address] Aug, [place] [address] [facility] [id number] [address] [place] [address] Aug, General counseling and advic e on female contraception Z30.09 and Iron deficiency anemia due to chronic blood loss D50.0 [place] [address] [facility] [id number] [address] [place] [address] July, Routine gynecological examin ation Z01.419 ; General counseling and advice on female contraception Z30.09 ; High risk medication use Z79.899 ; Other specified bacterial agents as the cause of diseases classified elsewhere B96.89 and Acute vaginitis N76.0 [place] [address] [facility] [id number] [address] [place] [address] July, Attention deficit hyperactiv ity disorder (ADHD), combined type F90.2 ; Bipolar disorder, unspecified F31.9 and Schizoaffective disorder F25.9 [facility] [address] [id number] [address] [place] [address] July, Unspecified mood [affective] disorder F39 [place] [address] [id number] [address] [place] [address] July, [place] [address] [facility] [id number] [address] [place] [address] July, [place] [address] [facility] [id number] [address] [place] [address] July, Low hemoglobin D64.9 [place] [address] [facility] [id number] [address] [place] [address] July, [place] [address] [facility] [id number] [address] [place] [address] July, General counselling and advi ce on contraception Z30.09 ; Pain in left knee M25.562 ; Pain in right knee M25.561 ; Chronic fatigue R53.82 and Vitamin D deficiency E55.9 [place] [address] [facility] [id number] [address] [place] [address] Jun, Fatigue R53.83 [place] [address] [facility] [id number] [address] [place] [address] Jun, Fatigue R53.83 ; Low hemoglo bin D64.9 ; Long-term use of high-risk medication Z79.899 ; Sore throat J02.9 and Fever, low grade R50.9 [place] [address] [place] [id number] [address] [place] [address] Jun, Unspecified mood [affective] disorder F39 [place] [address] [facility] [id number] [address] [place] [address] May, Unspecified mood [affective] disorder F39 [place] [address] [place] [id number] [address] [place] [address] May, [place] [address] [facility] [id number] [address] [place] [address] May, Attention deficit hyperactiv ity disorder (ADHD), combined type F90.2 ; Bipolar disorder, unspecified F31.9 and Schizoaffective disorder F25.9 [place] [address] [facility] [id number] [address] [place] [address] May, [place] [address] [facility] [id number] [address] [place] [address] Apr, [place] [address] [place] [id number] [address] [place] [address] Apr, [facility] [address] [id number] [address] [place] [address] Apr, [facility] [address] [id number] [address] [place] [address] Apr, [facility] [address] [id number] [place] [id number] Apr, Ingestion of unknown drug T5 0.901A [facility] [address] [id number] [address] [place] [address] Apr, [facility] [address] [id number] [address] [place] [address] Apr, Unspecified mood [affective] disorder [address] [place] [address] [id number] [address] [place] [address] 16 Apr, 2015 Unspecified mood [affective] disorder F39 [facility] [address] [id number] [address] [place] [address] Apr, Unspecified mood [affective] disorder F39 [facility] [address] [facility] [id number] [address] [place] [address] Apr, [facility] use of drug Z79.89 9 ; Attention deficit hyperactivity disorder (ADHD), combined type F90.2 ; Bipolar disorder, unspecified F31.9 and Schizoaffective disorder F25.9 [facility] [address] [id number] [address] [place] [address] Mar, Unspecified mood [affective] disorder F39 [facility] [address] [id number] [place] [id number] Mar, Menstrual period late N91.0 and High risk sexual behavior Z72.51 [facility] [address] [id number] [address] [place] [address] Mar, Unspecified mood [affective] disorder F39 [facility] [address] [id number] [address] [place] [address] Mar, Unspecified mood [affective] disorder F39 [facility] [address] [id number] [address] [place] [address] Mar, Unspecified mood [affective] disorder F39 [facility] [address] [id number] [address] [place] [address] Feb, [facility] [address] [id number] [address] [place] [address] Feb, Attention deficit hyperactiv ity disorder (ADHD), combined type F90.2 ; Episodic mood disorder 296.90 and Bipolar disorder, unspecified F31.9 [facility] [address] [id number] [address] [place] [address] Feb, Major depressive disorder, r ecurrent, moderate F33.1 [facility] [address] [id number] [address] [place] [address] Feb, Unspecified mood [affective] disorder F39 [facility] [address] [id number] [address] [place] [address] Feb, Unspecified mood [affective] disorder F39 [facility] [address] [id number] [address] [place] [address] Feb, [facility] [address] [id number] [address] [place] [address] Feb, Unspecified mood [affective] disorder F39 [facility] [address] [id number] [address] [place] [address] Feb, Bipolar disorder, unspecifie d F31.9 [facility] [address] [id number] [address] [place] [address] Jan, [facility] [address] [id number] [address] [place] [address] Jan, Unspecified mood [affective] disorder F39 [facility] [address] [id number] [address] [place] [address] Jan, Unspecified mood [affective] disorder F39 [facility] [address] [facility] [id number] [address] [place] [address] Jan, Bipolar disorder, unspecifie d F31.9 [facility] [address] [facility] [id number] [address] [place] [address] Jan, Attention deficit hyperactiv ity disorder (ADHD), combined type F90.2 and Bipolar disorder, unspecified F31.9 [facility] [address] [id number] [address] [place] [id number] Jan, [facility] [address] [facility] [id number] [address] [place] [phone] Jan, [facility] [address] [facility] [id number] [address] [place] [id number] Jan, Unspecified mood [affective] disorder F39 [facility] [address] [facility] [id number] [address] [place] [id number] Dec, Unspecified mood [affective] disorder F39 [facility] [address] [facility] [id number] [address] [place] [phone] Dec, Unspecified mood [affective] disorder F39 [facility] [address] [facility] [id number] [address] [place] [phone] Dec, Unspecified mood [affective] disorder F39 [facility] [address] [facility] [id number] [address] [place] [phone] Dec, [facility] [address] [facility] [id number] [address] [place] [phone] Dec, Viral upper respiratory trac t infection J06.9 ; Encounter for immunization Z23 and Smoker F17.200 [facility] [address] [id number] [address] [place] [phone] 09 Dec, 2014 [facility] [address] [facility] [id number] [address] [place] [id number] Dec, Schizoaffective disorder F25 .9 and Attention deficit hyperactivity disorder (ADHD), combined type F90.2 [facility] [address] [facility] [id number] [address] [place] [address] Nov, [facility] [address] [facility] [id number] [address] [place] [address] Nov, Unspecified mood [affective] disorder F39 [facility] [address] [facility] [id number] [address] [place] [address] Nov, Schizoaffective disorder, un specified 295.70 ; Generalized anxiety disorder 300.02 and Attention deficit disorder of childhood with hyperactivity 314.01 [facility] [address] [facility] [id number] [address] [place] [address] Oct, [facility] [address] [place] [id number] [address] [place] [address] Oct, [facility] [address] [facility] [id number] [address] [place] [address] Oct, [facility] [address] [facility] [id number] [address] [place] [address] Oct, Affective disorder 296.90 [facility] [address] [facility] [id number] [address] [place] [address] Oct, Screen for STD (sexually tra nsmitted disease) V74.5 and Encounter for counseling regarding contraception V25.09 [facility] [address] [facility] [id number] [address] [place] [address] Sep, [facility] [address] [facility] [id number] [address] [place] [address] Sep, [facility] [address] [facility] [id number] [address] [place] [address] Sep, Episodic mood disorder 296.9 0 [facility] [address] [facility] [id number] [address] [place] [address] Sep, [facility] [address] [id number] [address] [place] [address] Sep, [facility] [address] [id number] [address] [place] [address] Aug, [facility] [address] [id number] [address] [place] [address] Aug, [facility] [address] [id number] [address] [place] [address] Aug, [facility] [address] [id number] [address] [place] [address] Aug, Episodic mood disorder 296.9 0 [facility] [address] [id number] [address] [place] [address] Aug, [facility] [address] [facility] [id number] [address] [place] [address] July, Allergic rhinitis 477.9 [facility] [address] [id number] [address] [place] [address] July, Schizoaffective disorder, un specified 295.70 [facility] [address] [id number] [address] [place] [address] July, [facility] [address] [facility] [id number] [address] [place] [address] Jun, [facility] [address] [id number] [address] [place] [address] Jun, [facility] [address] [id number] [address] [place] [address] 24 May, 2014 [facility] [address] [id number] [address] [place] [address] 24 May, 2014 [facility] [address] [facility] [id number] [address] [place] [address] May, [facility] [address] [id number] [address] [place] [address] May, [facility] [address] [id number] [address] [place] [address], [place] [address] Apr, [facility] [address] [id number] [address] [place] [address], [place] [address] Apr, [facility] [address] [id number] [address] [place] [address], [place] [address] Apr, 2014 [facility] [address] [id number] [address] [place] [address], [place] [address] Apr, 2014 [facility] [address] [id number] [address] [place] [address], [place] [address] Apr, [facility] [address] [id number] [address] [place] [address], [place] [address] Apr, [facility] [address] [id number] [address] [place] [address], [place] [address] Apr, [facility] [address] [id number] [address] [place] [address], [place] [address] Apr, [facility] [address] [id number] [address] [place] [address], [place] [address] Mar, [facility] [address] [id number] [address] [place] [address], [place] [address] Mar, [facility] [address] [id number] [address] [place] [address] Mar, [facility] [address] [id number] [address] [place] [address] Mar, [facility] [address] [id number] [address] [place] [address], [place] [address] Feb, [facility] [address] [id number] [address] [place] [address], [place] [address] Feb, [facility] [address] [id number] [address] [place] [address], [place] [address] Feb, [facility] [address] [id number] [address] [place] [id number] 30 Feb, 2014 [facility] [address] [id number] [address] [place] [address], [place] [address] Feb, [facility] [address] [id number] [address] [place] [address], [place] [address] Feb, [facility] [address] [id number] [address] [place] [address], [place] [address] Feb, [facility] [address] [id number] [address] [place] [address], [place] [address] Feb, [facility] [address] [id number] [address] [place] [address], [place] [address] Feb, [facility] [address] [id number] [address] [place] [address], [place] [address] Feb, [facility] [address] [id number] [address] [place] [address], [place] [address] Feb, [facility] [address] [id number] [address] [place] [address], [place] [address] Jan, [facility] [address] [id number] [address] [place] [address], [place] [address] Jan, [facility] [address] [id number] [address] [place] [address], [place] [address] Dec, [facility] [address] [id number] [address] [place] [address], [place] [address] Dec, [facility] [address] [id number] [address] [place] [address] Dec, [facility] [address] [id number] [address] [place] [address] Dec, [facility] [address] [id number] [address] [place] [address], [place] [address] Dec, [facility] [address] [id number] [address] [place] [address] Dec, [facility] [address] [id number] [address] [place] [address], [place] [address] Dec, 2013 [facility] [address] [id number] [address] [place] [address], [place] [address] Dec, 2013 [facility] [address] [id number] [address] [place] [address], [place] [address] Dec, 2013 [facility] [address] [id number] [address] [place] [address], [place] [address] Dec, 2013 [facility] [address] [id number] [address] [place] [address], [place] [address] Dec, 2013 [facility] [address] [id number] [address] [place] [address], [place] [address] Dec, 2013 [facility] [address] [id number] [address] [place] [address], [place] [address] Dec, 2013 [facility] [address] [id number] [address] [place] [address], [place] [address] Dec, 2013 [facility] [address] [id number] [address] [place] [address], [place] [address] Dec, 2013 [facility] [address] [id number] [address] [place] [address], [place] [address] Dec, 2013 [facility] [address] [id number] [address] [place] [address], [place] [address] Dec, 2013 [facility] [address] [id number] [address] [place] [address], [place] [address] Dec, 2013 [facility] [address] [id number] [address] [place] [address], [place] [address] Dec, [facility] [address] [id number] [address] [place] [address], [place] [address] Dec, 2013 [facility] [address] [id number] [address] [place] [address] Dec, 2013 [facility] [address] [id number] [address] [place] [address] [address] Dec, [facility] [address] [id number] [address] [place] [address], [place] [address] Dec, [facility] [address] [id number] [address] [place] [address], [place] [address] Dec, [facility] [address] [id number] [address] [place] [address], [place] [address] Nov, 2013 [facility] [address] [id number] [address] [place] [address], [place] [address] Nov, 2013 [facility] [address] [id number] [address] [place] [address], [place] [address] Nov, 2013 [facility] [address] [id number] [address] [place] [address], [place] [address] Nov, 2013 [facility] [address] [id number] [address] [place] [address], [place] [address] Nov, 2013 [facility] [address] [id number] [address] [place] [address], [place] [address] Nov, 2013 [facility] [address] [id number] [address] [place] [address], [place] [address] 17 Nov, 2013 [facility] [address] [id number] [address] [place] [address], [place] [address] 17 Nov, 2013 [facility] [address] [id number] [address] [place] [address], [place] [address] 15 Nov, 2013 [facility] [address] [id number] [address] [place] [address], [place] [address] 15 Nov, 2013 [facility] [address] [id number] [address] [place] [address], [place] [address] 02 Nov, 2013 [facility] [address] [id number] [address] [place] [address], [place] [address] 02 Nov, 2013 [facility] [address] [id number] [address] [place] [address], [place] [address] 02 Nov, 2013 [facility] [address] [id number] [facility] [place] [address] Nov, [facility] [address] [id number] [address] [place] [address], [place] [address] Oct, [facility] [address] [id number] [address] [place] [address], [place] [address] Oct, [facility] [address] [id number] [address] [place] [address], [place] [address] Oct, [facility] [address] [id number] [address] [place] [address], [place] [address] Oct, [facility] [address] [id number] [address] [place] [address], [place] [address] Oct, [facility] [address] [id number] [address] [place] [address], [place] [address] Oct, [facility] [address] [id number] [address] [place] [address], [place] [address] Oct, [facility] [address] [id number] [address] [place] [address], [place] [address] Oct, [facility] [address] [id number] [address] [place] [address], [place] [address] Sep, [facility] [address] [id number] [address] [place] [address], [place] [address] Sep, [facility] [address] [id number] [address] [place] [address], [place] [address] Sep, [facility] [address] [id number] [address] [place] [address], [place] [address] Sep, [facility] [address] [id number] [address] [place] [address], [place] [address] Sep, [facility] [address] [id number] [address] [place] [address], [place] [address] Sep, [facility] [address] [id number] [address] [place] [address], [place] [address] Aug, [facility] [address] [id number] [address] [place] [address], [place] [address] Aug, [facility] [address] [id number] [address] [place] [address], [place] [address] July, [facility] [address] [id number] [address] [place] [address], [place] [address] July, [facility] [address] [id number] [address] [place] [address], [place] [address] July, [facility] [address] [id number] [address] [place] [address], [place] [address] July, [facility] [address] [id number] [address] [place] [address], [place] [address] July, [facility] [address] [id number] [address] [place] [address], [place] [address] July, [facility] [address] [id number] [address] [place] [address], [place] [address] July, [facility] [address] [id number] [address] [place] [address], [place] [address] July, [facility] [address] [id number] [address] [place] [address], [place] [address] July, [facility] [address] [id number] [address] [place] [address], [place] [address] July, [facility] [address] [id number] [address] [place] [address], [place] [address] July, [facility] [address] [id number] [address] [place] [address], [place] [address] July, [facility] [address] [id number] [address] [place] [address], [place] [address] July, [facility] [address] [id number] [address] [place] [address], [place] [address] July, [facility] [address] [id number] [address] [place] [address], [place] [address] July, [facility] [address] [id number] [facility] [place] [address] July, [facility] [address] [id number] [address] [place] [address], [place] [address] July, [facility] [address] [id number] [address] [place] [address], [place] [address] July, [facility] [address] [id number] [address] [place] [address], [place] [address] Jun, [facility] [address] [id number] [address] [place] [address], [place] [address] Jun, [facility] [address] [id number] [address] [place] [address], [place] [address] Jun, [facility] [address] [id number] [address] [place] [address], [place] [address] Jun, [facility] [address] [id number] [address] [place] [address], [place] [address] Jun, [facility] [address] [id number] [address] [place] [address], [place] [address] Jun, [facility] [address] [id number] [address] [place] [address], [place] [address] Jun, [facility] [address] [id number] [address] [place] [address], [place] [address] Jun, [facility] [address] [id number] [address] [place] [address], [place] [address] Jun, [facility] [address] [id number] [address] [place] [address], [place] [address] Jun, [facility] [address] [id number] [address] [place] [address], [place] [address] Jun, [facility] [address] [id number] [address] [place] [address], [place] [address] Jun, [facility] [address] [id number] [facility] [place] [address] May, [facility] [address] [id number] [address] [place] [address], [place] [address] May, [facility] [address] [id number] [address] [place] [address], [place] [address] May, [facility] [address] [id number] [address] [place] [address], [place] [address] May, [facility] [address] [id number] [address] [place] [address], [place] [address] May, [facility] [address] [id number] [address] [place] [address], [place] [address] May, [facility] [address] [id number] [address] [place] [address], [place] [address] May, [facility] [address] [id number] [address] [place] [address], [place] [address] May, [facility] [address] [id number] [address] [place] [address], [place] [address] May, [facility] [address] [id number] [address] [place] [address], [place] [address] May, [facility] [address] [id number] [address] [place] [address], [place] [address] Apr, [facility] [address] [id number] [address] [place] [address], [place] [address] Apr, [facility] [address] [id number] [address] [place] [address], [place] [address] Apr, [facility] [address] [id number] [address] [place] [address], [place] [address] Apr, [facility] [address] [id number] [address] [place] [address], [place] [address] Apr, [facility] [address] [id number] [address] [place] [address], [place] [address] Apr, [facility] [address] [id number] [address] [place] [address], [place] [address] Apr, [facility] [address] [id number] [address] [place] [address], [place] [address] Apr, [facility] [address] [id number] [address] [place] [address], [place] [address] Apr, [facility] [address] [id number] [address] [place] [address], [place] [address] Apr, [facility] [address] [id number] [address] [place] [address], [place] [address] Apr, [facility] [address] [id number] [address] [place] [address], [place] [address] Apr, [facility] [address] [id number] [address] [place] [address], [place] [address] Apr, [facility] [address] [id number] [address] [place] [address], [place] [address] Apr, [facility] [address] [id number] [address] [place] [address], [place] [address] Mar, [facility] [address] [id number] [address] [place] [address], [place] [address] Mar, [facility] [address] [id number] [address] [place] [address], [place] [address] Mar, [facility] [address] [id number] [address] [place] [address], [place] [address] Mar, [facility] [address] [id number] [address] [place] [address], [place] [address] Mar, [facility] [address] [id number] [address] [place] [address], [place] [address] Mar, [facility] [address] [id number] [address] [place] [id number] Mar, [facility] [address] [id number] [address] [place] [address], [place] [address] Mar, [facility] [address] [id number] [address] [place] [address], [place] [address] Mar, [facility] [address] [id number] [address] [place] [address], [place] [address] Mar, [facility] [address] [id number] [address] [place] [address], [place] [address] Mar, [facility] [address] [id number] [address] [place] [address], [place] [address] Mar, [facility] [address] [id number] [address] [place] [address], [place] [address] Feb, [facility] [address] [id number] [address] [place] [address], [place] [address] Feb, [facility] [address] [id number] [address] [place] [address], [place] [address] Feb, [facility] [address] [id number] [address] [place] [address], [place] [address] Feb, [facility] [address] [id number] [address] [place] [address], [place] [address] Feb, [facility] [address] [id number] [address] [place] [address], [place] [address] Feb, [facility] [address] [id number] [address] [place] [address], [place] [address] Feb, [facility] [address] [id number] [address] [place] [address], [place] [address] Feb, [facility] [address] [id number] [address] [place] [address], [place] [address] Feb, [facility] [address] [id number] [address] [place] [address], [place] [address] Feb, [facility] [address] [id number] [address] [place] [address], [place] [address] Feb, [facility] [address] [id number] [address] [place] [address], [place] [address] Jan, [facility] [address] [id number] [address] [place] [address], [place] [address] Jan, [facility] [address] [id number] [address] [place] [address], [place] [address] Jan, [facility] [address] [id number] [address] [place] [address], [place] [address] Jan, [facility] [address] [id number] [address] [place] [address], [place] [address] Jan, [facility] [address] [id number] [address] [place] [address], [place] [address] Jan, [facility] [address] [id number] [address] [place] [address], [place] [address] Jan, [facility] [address] [id number] [address] [place] [address], [place] [address] Dec, [facility] [address] [id number] [address] [place] [address], [place] [address] Dec, [facility] [address] [id number] [address] [place] [address], [place] [address] Dec, [facility] [address] [id number] [address] [place] [id number] Dec, [facility] [address] [id number] [address] [place] [id number] Dec, [facility] [address] [id number] [address] [place] [address], [place] [address] Nov, [facility] [address] [id number] [address] [place] [address], [place] [address] Oct, [facility] [address] [id number] [address] [place] [address], [place] [address] Oct, [facility] [address] [id number] [address] [place] [address], [place] [address] Oct, [facility] [address] [id number] [address] [place] [address], [place] [address] Oct, [facility] [address] [id number] [address] [place] [address], [place] [address] Oct, [facility] [address] [id number] [address] [place] [address], [place] [address] Sep, [facility] [address] [id number] [address] [place] [address], [place] [address] Sep, [facility] [address] [id number] [address] [place] [address], [place] [address] Sep, [facility] [address] [id number] [address] [place] [address], [place] [address] Sep, [facility] [address] [id number] [address] [place] [address], [place] [address] Aug, [facility] [address] [id number] [address] [place] [address], [place] [address] Aug, [facility] [address] [id number] [address] [place] [address], [place] [address] Aug, [facility] [address] [id number] [address] [place] [address], [place] [address] Aug, [facility] [address] [id number] [address] [place] [address], [place] [address] Aug, [facility] [address] [id number] [address] [place] [address], [place] [address] July, [facility] [address] [id number] [address] [place] [address], [place] [address] July, [facility] [address] [id number] [address] [place] [address], [place] [address] July, [facility] [address] [id number] [address] [place] [address], [place] [address] July, [facility] [address] [id number] [address] [place] [address], [place] [address] Jun, [facility] [address] [id number] [address] [place] [address], [place] [address] Jun, [facility] [address] [id number] [address] [place] [address], [place] [address] May, [facility] [address] [id number] [address] [place] [address], [place] [address] May, [facility] [address] [id number] [address] [place] [address], [place] [address] Apr, [facility] [address] [id number] [address] [place] [address], [place] [address] Apr, [facility] [address] [id number] [address] [place] [address], [place] [address] Mar, [facility] [address] [id number] [address] [place] [address], [place] [address] Mar, [facility] [address] [id number] [address] [place] [address], [place] [address] Feb, [facility] [address] [id number] [address] [place] [address], [place] [address] Feb, [facility] [address] [id number] [address] [place] [address], [place] [address] Feb, [facility] [address] [id number] [address] [place] [address], [place] [address] Feb, [facility] [address] [id number] [address] [place] [address], [place] [address] Feb, [facility] [address] [id number] [address] [place] [address], [place] [address] Feb, [facility] [address] [id number] [address] [place] [address], [place] [address] Jan, [facility] [address] [id number] [address] [place] [address] Jan, [facility] [address] [id number] [address] [place] [address], [place] [address] Jan, [facility] [address] [id number] [address] [place] [address], [place] [address] Jan, [facility] [address] [id number] [address] [place] [address], [place] [address] Dec, [facility] [address] [id number] [address] [place] [address], [place] [address] 15 Dec, 2011 [facility] [address] [id number] [address] [place] [address], [place] [address] 18 Nov, 2011 [facility] [address] [id number] [address] [place] [address], [place] [address] Nov, [facility] [address] [id number] [address] [place] [address], [place] [address] Nov, [facility] [address] [id number] [address] [place] [address], [place] [address] Oct, [facility] [address] [id number] [address] [place] [address], [place] [address] Sep, [facility] [address] [id number] [address] [place] [address], [place] [address] Aug, [facility] [address] [id number] [address] [place] [address], [place] [address] July, [facility] [address] [id number] [address] [place] [address], [place] [address] July, [facility] [address] [id number] [address] [place] [address], [place] [address] July, [facility] [address] [id number] [address] [place] [address], [place] [address] July, [facility] [address] [id number] [address] [place] [address], [place] [address] July, [facility] [address] [id number] [address] [place] [address], [place] [address] 25 Jun, 2011 [facility] [address] [id number] [address] [place] [address], [place] [address] 29 May, 2011 [facility] [address] [id number] [address] [place] [address], [place] [address] 29 May, 2011 [facility] [address] [id number] [address] [place] [address], [place] [address] 14 May, 2011 [facility] [address] [id number] [address] [place] [address], [place] [address] 28 Apr, 2011 [facility] [address] [id number] [address] [place] [address], [place] [address] 20 Apr, 2011 [facility] [address] [id number] [address] [place] [address], [place] [address] 16 Mar, 2011 [facility] [address] [id number] [address] [place] [address], [place] [address] 16 Feb, 2011 [facility] [address] [id number] [address] [place] [address], [place] [address] 16 Feb, 2011 [facility] [address] [id number] [address] [place] [address], [place] [address] 16 Feb, 2011 [facility] [address] [id number] [address] [place] [address], [place] [address] 15 Feb, 2011 [facility] [address] [id number] [address] [place] [address], [place] [address] 14 Feb, 2011 [facility] [address] [id number] [address] [place] [address], [place] [address] 14 Feb, 2011 [facility] [address] [id number] [address] [place] [address], [place] [address] 14 Feb, 2011 [facility] [address] [id number] [address] [place] [address], [place] [address] 29 Jan, 2011 [facility] [address] [id number] [address] [place] [address], [place] [address] Jan, [facility] [address] [id number] [address] [place] [address] Jan, [facility] [address] [id number] [address] [place] [address] Aug, [facility] [address] [id number] [address] [place] [id number] Feb, [facility] [address] [id number] [address] [place] [id number] Feb, [facility] [address] [id number] [address] [place] [address] Feb, [facility] [address] [id number] [address] [place] [address] Dec, [facility] [address] [id number] [address] [place] [id number] Jun, [facility] [address] [id number] [address] [place] [id number] Dec, [facility] [address] [facility] [id number] [address] [place] [id number] Sep, IMMUNIZATIONS No Known Immunizations SOCIAL HISTORY Never Assessed REASON FOR VISIT PLAN OF CARE VITAL SIGNS Height 63 in 2013-03-09 Weight 122.38 lbs 2013-03-09 Temperature 98 degrees Fahrenheit 2013-03-09 Heart Rate 80 bpm 2013-03-09 Respiratory Rate 24 2013-03-09 Blood pressure systolic 98 mmHg 2013-03-09 Blood pressure diastolic 76 mmHg 2013-03-09 MEDICATIONS Unknown Medications RESULTS No Results PROCEDURES [...] History Men[facility] Repair [facility] K[facility] Hospitalization History Overdose [facility] 07/17/15 Hospitalization History Overdose 01/2018
--- OUTSIDE RECORDS SUMMARY | 2019-07-15 19:45 | XMS REPORT ---
Author Author Shan Flaherty Organization [facility] Address [address] [place] [address] Care Team Providers Care Lean Engineer Name Role Phone CHARLIE Flaherty Unavailable PROBLEMS Type Condition ICD9-CM Code PCG27-ZB Code Onset Dates Condition S tatus SNOMED Code Problem Low hemoglobin D64.9 Active 48091 7008 Problem Long-term use of high-risk medication Z79.899 Active 293279454 Problem Pain in left knee M25.562 Active 30 760318 Problem Chronic fatigue R53.82 Active 5270 2003 Problem Seasonal allergic rhinitis due to pollen J30.1 Active 34848173 Problem Bipolar disorder with depression F31.30 Active 13034345 Problem Routine gynecological examination Z01.419 Active 769422570 Problem High risk medication use Z79.899 Activ e 318712664 Problem Unspecified mood [affective] disorder F39 Active 155672118 Problem Iron deficiency anemia due to chronic blood loss D 50.0 Active 98298102 Problem Attention deficit hyperactivity disorder (ADHD), combi cosmo type F90.2 Active 976305646 Problem Bipolar disorder, unspecified F31.9 Active 10828048 Problem Generalized anxiety disorder F41.1 A ctive 73354061 Problem Amenorrhea N91.2 Active 57909980 Problem Schizoaffective disorder F25.9 Activ e 54610142 Problem Well woman exam Z01.419 Active 3103 75548 Problem Schizoaffective disorder, bipolar type F25.0 Active 71487381 Problem care, first in first trimester Z34.01 Active 897578212 Problem Vitamin D deficiency E55.9 Active 24825474 Problem Anxiety F41.9 Active 06085781 Problem Pain in right knee M25.561 Active 8 4951670 Problem General counseling and advice on female contraception Z30.09 Active 96872059 Problem Social phobia F40.10 Active 154329 02 Problem Relationship problem with family member Z63.8 Active 335809370 Problem Chronic post-traumatic stress disorder (PTSD) F43. 12 Active 582604087 Problem Positive test Z32.01 Active 354570177 ALLERGIES No Information ENCOUNTERS Encounter Location Date Diagnosis [facility] [address] [facility] [id number] [address] [place] [phone] July, [facility] [address] [facility] [id number] [address] [place] [phone] July, [facility] [address] [place] [id number] [address] [place] [phone] July, [facility] [address] [facility] [id number] [address] [place] [phone] 28 Jun, 2019 [facility] [address] [place] [id number] [address] [place] [phone] Jun, [facility] [address] [address] 14 Jun, 2019 [facility] [address] [facility] [id number] [address] [place] [phone] Jun, [facility] [address] [place] [id number] [address] [place] [phone] May, [facility] [address] [place] [id number] [address] [place] [phone] May, Third trimester Z3 4.93 ; 33 weeks gestation of Z3A.33 ; Anxiety F41.9 and Encounter for immunization Z23 [facility] [address] [facility] [id number] [address] [place] [phone] 25 May, 2019 [facility] [address] [facility] [id number] [address] [place] [phone] 24 May, 2019 [facility] [address] [place] [id number] [address] [place] [id number] 20 May, 2019 [facility] [address] [place] [id number] [address] [place] [phone] 17 May, 2019 [facility] [address] [facility] [id number] [address] [place] [id number] 16 May, 2019 [facility] [address] [facility] [id number] [address] [place] [phone] 16 May, 2019 [facility] [address] [facility] [id number] [address] [place] [id number] 12 May, 2019 [facility] [address] [facility] [id number] [address] [place] [id number] 10 May, 2019 [facility] [address] [facility] [id number] [address] [place] [id number] 10 May, 2019 care, first pregnan cy in third trimester Z34.03 ; 31 weeks gestation of Z3A.31 and Decreased movements in third trimester, single or unspecified fetus O36.8130 [place] [address] [place] [id number] [address] [place] [id number] 06 May, 2019 Fever and chills R50.9 and F mel-like symptoms R68.89 [place] [address] [facility] [id number] [address] [place] [id number] 11 Apr, 2019 [place] [address] [facility] [id number] [address] [place] [id number] 11 Apr, 2019 Second trimester Z 34.92 and 27 weeks gestation of Z3A.27 [place] [address] [facility] [id number] [address] [place] [phone] 15 Mar, 2019 Acute non-recurrent maxillar y sinusitis J01.00 and Cough R05 [place] [address] [facility] [id number] [address] [place] [phone] Mar, [place] [address] [facility] [id number] [address] [place] [phone] Mar, [facility] [address] [facility] [id number] [address] [place] [phone] 14 Mar, 2019 [place] [address] [facility] [id number] [address] [place] [phone] Mar, care in second trim gabo Z34.92 and 23 weeks gestation of Z3A.23 [facility] [address] [facility] [id number] [address] [place] [phone] Feb, care in second trim gabo Z34.92 and 19 weeks gestation of Z3A.19 [facility] [address] [facility] [id number] [address] [place] [phone] Feb, [facility] [address] [facility] [id number] [address] [place] [id number] Feb, care in second trim gabo Z34.92 ; 19 weeks gestation of Z3A.19 and Encounter for immunization Z23 [facility] [address] [facility] [id number] [address] [place] [phone] Feb, Dental examination Z01.20 [facility] [address] [facility] [id number] [address] [place] [phone] Feb, [facility] [address] [facility] [id number] [address] [place] [phone] Jan, [facility] [address] [facility] [id number] [address] [place] [phone] Jan, care in second trim gabo Z34.92 and 15 weeks gestation of Z3A.15 [facility] [address] [facility] [id number] [address] [place] [id number] Dec, First trimester Z3 4.91 ; 11 weeks gestation of Z3A.11 and Nausea/vomiting in O21.9 [facility] [address] [facility] [id number] [address] [place] [phone] Dec, [facility] [address] [facility] [id number] [address] [place] [phone] Dec, [facility] [address] [facility] [id number] [address] [place] [id number] Dec, care, first pregnan cy in first trimester Z34.01 [facility] [address] [facility] [id number] [address] [place] [id number] Dec, [facility] [address] [id number] [address] [place] [phone] Dec, Chronic post-traumatic stres s disorder (PTSD) F43.12 ; Relationship problem with family member Z63.8 and Positive test Z32.01 [place] [id number] [id number] [address] [place] [phone] Nov, [facility] [address] [id number] [address] [place] [phone] Nov, care, first pregnan cy in first trimester Z34.01 [place] [address] [id number] [address] [place] [phone] Nov, [place] [address] [id number] [address] [place] [phone] Nov, care, first pregnan cy in first trimester Z34.01 and 7 weeks gestation of Z3A.01 [place] [address] [id number] [address] [place] [id number] 24 Nov, 2018 [place] [address] [id number] [address] [place] [phone] 20 Nov, 2018 [place] [address] [id number] [address] [place] [id number] 18 Nov, 2018 [place] [address] [id number] [address] [place] [id number] 13 Nov, 2018 [place] [address] [id number] [address] [place] [phone] Nov, [place] [address] [id number] [address] [place] [phone] Nov, Positive test Z32. 01 ; Well woman exam with routine gynecological exam Z01.419 ; Amenorrhea N91.2 ; , unspecified gestational age Z34.90 ; Encounter for smoking cessation counseling Z71.6 ; Acute vaginitis N76.0 and Other specified bacterial agents as the cause of diseases classified elsewhere B96.89 [facility] [address] [id number] [address] [place] [phone] Nov, [facility] [address] [id number] [address] [place] [phone] Nov, [facility] [address] [id number] [address] [place] [phone] Oct, Bipolar disorder with depres arlen F31.30 [facility] [address] [id number] [address] [place] [id number] Oct, Bipolar disorder with depres arlen F31.30 ; Chronic post-traumatic stress disorder (PTSD) F43.12 and Relationship problem with family member Z63.8 [place] [id number] [facility] [id number] [address] [place] [phone] Aug, Bipolar disorder with depres arlen F31.30 ; Chronic post-traumatic stress disorder (PTSD) F43.12 and Relationship problem with family member Z63.8 [facility] [address] [id number] [address] [place] [id number] Mar, Schizoaffective disorder, bi polar type F25.0 ; Social phobia F40.10 ; Chronic post-traumatic stress disorder (PTSD) F43.12 and Relationship problem with family member Z63.[id number] [place] [phone] Oct, Pain in right shoulder M25.511 and Bipol ar disorder with depression F31.30 [facility] [address] [id number] [address] [place] [id number] July, [facility] [address] [id number] [address] [place] [phone] July, [facility] [address] [id number] [address] [place] [phone] July, Well woman exam Z01.419 and Vaginal discharge N89.8 [place] [address] [facility] [id number] [address] [place] [phone] Jun, [facility] [address] [facility] [id number] [address] [place] [phone] Mar, [facility] [address] [facility] [id number] [address] [place] [phone] May, Bipolar disorder, unspecifie d F31.9 [facility] [address] [place] [id number] [address] [place] [phone] May, Bipolar disorder, unspecifie d F31.9 ; Attention deficit hyperactivity disorder (ADHD), combined type F90.2 and Schizoaffective disorder F25.9 [place] [address] [place] [id number] [address] [place] [phone] May, Bipolar disorder with depres arlen F31.30 [place] [address] [phone] May, Bipolar disorder, unspecifie d F31.9 ; Attention deficit hyperactivity disorder (ADHD), combined type F90.2 and Schizoaffective disorder F25.9 [place] [id number] [place] [phone] Apr, Seasonal allergic rhinitis d ue to pollen J30.1 [place] [address] [place] [id number] [address] [place] [phone] Apr, [facility] [address] [place] [id number] [address] [place] [phone] Mar, Attention deficit disorder ( ADD) without 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 ; Bipolar disorder with depression F31.30 and Generalized anxiety disorder F41.1 [place] [address] [facility] [id number] [address] [place] [phone] Mar, [facility] [address] [place] [id number] [address] [place] [phone] Feb, Unspecified mood [affective] disorder F39 [place] [address] [facility] [id number] [address] [place] [phone] Feb, Unspecified mood [affective] disorder F39 [facility] [address] [facility] [id number] [address] [place] [phone] Feb, [facility] [address] [facility] [id number] [address] [place] [phone] Jan, Amenorrhea N91.2 ; Vitamin D deficiency E55.9 and Iron deficiency anemia due to chronic blood loss D50.0 [facility] [address] [facility] [id number] [address] [place] [phone] Jan, Encounter for test Z32.00 [facility] [address] [facility] [id number] [address] [place] [phone] Dec, Unspecified mood [affective] disorder F39 ; Bipolar disorder, unspecified F31.9 and Attention deficit hyperactivity disorder (ADHD), combined type F90.2 [facility] [address] [facility] [id number] [address] [place] [phone] Nov, [facility] [address] [facility] [id number] [address] [place] [phone] Nov, [facility] [address] [facility] [id number] [address] [place] [phone] Nov, [facility] [address] [facility] [id number] [address] [place] [phone] Nov, [facility] [address] [facility] [id number] [address] [place] [phone] Nov, [facility] [address] [facility] [id number] [address] [place] [phone] Nov, Dysuria R30.0 [facility] [address] [facility] [id number] [address] [place] [id number] Oct, [facility] [address] [facility] [id number] [address] [place] [phone] Oct, [facility] [address] [facility] [id number] [address] [place] [phone] Sep, [facility] [address] [facility] [id number] [address] [place] [phone] Sep, Bipolar disorder, unspecifie d F31.9 and Schizoaffective disorder F25.9 [facility] [address] [facility] [id number] [address] [place] [phone] Sep, [facility] [address] [facility] [id number] [address] [place] [phone] Aug, Unspecified mood [affective] disorder F39 [place] [address] [facility] [id number] [address] [place] [phone] Aug, [place] [address] [facility] [id number] [address] [place] [phone] Aug, General counseling and advic e on female contraception Z30.09 and Iron deficiency anemia due to chronic blood loss D50.0 [place] [address] [facility] [id number] [address] [place] [address] July, Routine gynecological examin ation Z01.419 ; General counseling and advice on female contraception Z30.09 ; High risk medication use Z79.899 ; Other specified bacterial agents as the cause of diseases classified elsewhere B96.89 and Acute vaginitis N76.0 [place] [address] [facility] [id number] [address] [place] [phone] July, Attention deficit hyperactiv ity disorder (ADHD), combined type F90.2 ; Bipolar disorder, unspecified F31.9 and Schizoaffective disorder F25.9 [place] [address] [facility] [id number] [address] [place] [phone] July, Unspecified mood [affective] disorder F39 [facility] [address] [facility] [id number] [address] [place] [address] July, [place] [address] [facility] [id number] [address] [place] [address] July, [facility] [address] [facility] [id number] [address] [place] [phone] July, Low hemoglobin D64.9 [place] [address] [facility] [id number] [address] [place] [phone] July, [place] [address] [facility] [id number] [address] [place] [phone] July, General counselling and advi ce on contraception Z30.09 ; Pain in left knee M25.562 ; Pain in right knee M25.561 ; Chronic fatigue R53.82 and Vitamin D deficiency E55.9 [place] [address] [facility] [id number] [address] [place] [phone] Jun, Fatigue R53.83 [place] [address] [facility] [id number] [address] [place] [phone] Jun, Fatigue R53.83 ; Low hemoglo bin D64.9 ; Long-term use of high-risk medication Z79.899 ; Sore throat J02.9 and Fever, low grade R50.9 [place] [address] [facility] [id number] [address] [place] [id number] Jun, Unspecified mood [affective] disorder F39 [place] [address] [facility] [id number] [address] [place] [phone] May, Unspecified mood [affective] disorder F39 [place] [address] [facility] [id number] [address] [place] [address] May, [place] [address] [facility] [id number] [address] [place] [phone] May, Attention deficit hyperactiv ity disorder (ADHD), combined type F90.2 ; Bipolar disorder, unspecified F31.9 and Schizoaffective disorder F25.9 [place] [id number] [facility] [id number] [address] [place] [id number] May, [place] [address] [id number] [address] [place] [phone] Apr, [facility] [address] [id number] [address] [place] [phone] Apr, [facility] [address] [id number] [address] [place] [phone] Apr, [facility] [address] [facility] [id number] [address] [place] [phone] Apr, [facility] [address] [id number] [place] [address] [id number] Apr, Ingestion of unknown drug T5 0.901A [facility] [address] [facility] [id number] [address] [place] [phone] Apr, [facility] [address] [facility] [id number] [address] [place] [phone] Apr, Unspecified mood [affective] disorder F39 [facility] [address] [facility] [id number] [address] [place] [phone] 16 Apr, 2015 Unspecified mood [affective] disorder F39 [facility] [address] [facility] [id number] [address] [place] [phone] Apr, Unspecified mood [affective] disorder F39 [facility] [address] [facility] [id number] [address] [place] [phone] 03 Apr, 2015 manager intermediate use of drug Z79.89 9 ; Attention deficit hyperactivity disorder (ADHD), combined type F90.2 ; Bipolar disorder, unspecified F31.9 and Schizoaffective disorder F25.9 [facility] [address] [facility] [id number] [address] [place] [phone] Mar, Unspecified mood [affective] disorder F39 [facility] [address] [id number] [place] [id number] Mar, Menstrual period late N91.0 and High risk sexual behavior Z72.51 [facility] [address] [id number] [address] [place] [phone] Mar, Unspecified mood [affective] disorder F39 [facility] [address] [id number] [address] [place] [phone] Mar, Unspecified mood [affective] disorder F39 [facility] [address] [id number] [address] [place] [id number] Mar, Unspecified mood [affective] disorder F39 [facility] [address] [id number] [address] [place] [phone] Feb, [facility] [address] [id number] [address] [place] [phone] Feb, Attention deficit hyperactiv ity disorder (ADHD), combined type F90.2 ; Episodic mood disorder 296.90 and Bipolar disorder, unspecified F31.9 [facility] [address] [facility] [id number] [address] [place] [id number] Feb, Major depressive disorder, r ecurrent, moderate F33.1 [facility] [address] [id number] [address] [place] [phone] Feb, Unspecified mood [affective] disorder F39 [facility] [address] [facility] [id number] [address] [place] [phone] Feb, Unspecified mood [affective] disorder F39 [facility] [address] [facility] [id number] [address] [place] [id number] Feb, [facility] [address] [id number] [address] [place] [id number] Feb, Unspecified mood [affective] disorder F39 [facility] [address] [facility] [id number] [address] [place] [id number] Feb, Bipolar disorder, unspecifie d F31.9 [facility] [address] [id number] [address] [place] [id number] Jan, [facility] [address] [facility] [id number] [address] [place] [id number] Jan, Unspecified mood [affective] disorder F39 [facility] [address] [id number] [address] [place] [id number] Jan, Unspecified mood [affective] disorder F39 [facility] [address] [facility] [id number] [address] [place] [id number] Jan, Bipolar disorder, unspecifie d F31.9 [facility] [address] [id number] [address] [place] [id number] Jan, Attention deficit hyperactiv ity disorder (ADHD), combined type F90.2 and Bipolar disorder, unspecified F31.9 [facility] [address] [facility] [id number] [address] [place] [id number] Jan, [facility] [address] [facility] [id number] [address] [place] [id number] Jan, [facility] [address] [facility] [id number] [address] [place] [id number] Jan, Unspecified mood [affective] disorder F39 [facility] [address] [facility] [id number] [address] [place] [phone] Dec, Unspecified mood [affective] disorder F39 [facility] [address] [facility] [id number] [address] [place] [id number] Dec, Unspecified mood [affective] disorder F39 [facility] [address] [facility] [id number] [address] [place] [id number] Dec, Unspecified mood [affective] disorder 9 [facility] [address] [facility] [id number] [address] [place] [id number] Dec, [facility] [address] [facility] [id number] [address] [place] [address] [address] Dec, Viral upper respiratory trac t infection J06.9 ; Encounter for immunization Z23 and Smoker F17.200 [facility] [address] [facility] [id number] [address] [place] [address] Dec, [facility] [address] [facility] [id number] [address] [place] [address] Dec, Schizoaffective disorder F25 .9 and Attention deficit hyperactivity disorder (ADHD), combined type F90.2 [facility] [address] [facility] [id number] [address] [place] [address] Nov, [facility] [address] [facility] [id number] [address] [place] [address] Nov, Unspecified mood [affective] disorder F39 [facility] [address] [facility] [id number] [address] [place] [address] Nov, Schizoaffective disorder, un specified 295.70 ; Generalized anxiety disorder 300.02 and Attention deficit disorder of childhood with hyperactivity 314.01 [facility] [address] [facility] [id number] [address] [place] [address] Oct, [facility] [address] [facility] [id number] [address] [place] [address] Oct, [facility] [address] [facility] [id number] [address] [place] [address] Oct, [facility] [address] [facility] [id number] [address] [place] [address] Oct, Affective disorder 296.90 [facility] [address] [facility] [id number] [address] [place] [address] Oct, Screen for STD (sexually tra nsmitted disease) V74.5 and Encounter for counseling regarding contraception V25.09 [facility] [address] [facility] [id number] [address] [place] [address] Sep, [facility] [address] [facility] [id number] [address] [place] [address] Sep, [facility] [address] [facility] [id number] [address] [place] [address] Sep, Episodic mood disorder 296.9 0 [facility] [address] [id number] [address] [place] [address] Sep, [facility] [address] [id number] [address] [place] [address] Sep, [facility] [address] [id number] [address] [place] [address] Aug, [facility] [address] [id number] [address] [place] [address] Aug, [facility] [address] [id number] [address] [place] [address] Aug, [facility] [address] [id number] [address] [place] [address] Aug, Episodic mood disorder 296.9 0 [facility] [address] [id number] [address] [place] [address] Aug, [facility] [address] [id number] [address] [place] [address] July, Allergic rhinitis 477.9 [facility] [address] [id number] [address] [place] [address] July, Schizoaffective disorder, un specified 295.70 [facility] [address] [id number] [address] [place] [address] July, [facility] [address] [id number] [address] [place] [id number] 14 Jun, 2014 [facility] [address] [id number] [address] [place] [id number] Jun, [facility] [address] [id number] [address] [place] [address] May, [facility] [address] [id number] [address] [place] [address] 24 May, 2014 [facility] [address] [id number] [address] [place] [address] May, [facility] [address] [id number] [address] [place] [address], [place] [address] May, [facility] [address] [id number] [address] [place] [address], [place] [address] Apr, [facility] [address] [id number] [address] [place] [address], [place] [address] Apr, [facility] [address] [id number] [address] [place] [address], [place] [address] Apr, [facility] [address] [id number] [address] [place] [address], [place] [address] Apr, 2014 [facility] [address] [id number] [address] [place] [address], [place] [address] Apr, [facility] [address] [id number] [address] [place] [address], [place] [address] Apr, [facility] [address] [id number] [address] [place] [address], [place] [address] Apr, [facility] [address] [id number] [address] [place] [address], [place] [address] Apr, [facility] [address] [id number] [address] [place] [address], [place] [address] Mar, [facility] [address] [id number] [address] [place] [address], [place] [address] Mar, [facility] [address] [id number] [address] [place] [address], [place] [address] Mar, [facility] [address] [id number] [address] [place] [address], [place] [address] Mar, [facility] [address] [id number] [address] [place] [address], [place] [address] Feb, [facility] [address] [id number] [address] [place] [address], [place] [address] Feb, [facility] [address] [id number] [address] [place] [address], [place] [address] 30 Feb, 2014 [facility] [address] [id number] [address] [place] [address], [place] [address] 30 Feb, 2014 [facility] [address] [id number] [address] [place] [address], [place] [address] Feb, [facility] [address] [id number] [address] [place] [address], [place] [address] Feb, [facility] [address] [id number] [address] [place] [address], [place] [address] Feb, [facility] [address] [id number] [address] [place] [address], [place] [address] Feb, [facility] [address] [id number] [address] [place] [address], [place] [address] Feb, [facility] [address] [id number] [address] [place] [address], [place] [address] Feb, [facility] [address] [id number] [address] [place] [address], [place] [address] Feb, [facility] [address] [id number] [address] [place] [address], [place] [address] Jan, [facility] [address] [id number] [address] [place] [address], [place] [address] Jan, [facility] [address] [id number] [address] [place] [address], [place] [address] Dec, [facility] [address] [id number] [address] [place] [address], [place] [address] Dec, [facility] [address] [id number] [address] [place] [address], [place] [address] Dec, [facility] [address] [id number] [address] [place] [address], [place] [address] Dec, [facility] [address] [id number] [address] [place] [address], [place] [address] Dec, [facility] [address] [id number] [address] [place] [address], [place] [address] Dec, 2013 [facility] [address] [id number] [address] [place] [address], [place] [address] Dec, 2013 [facility] [address] [id number] [address] [place] [address], [place] [address] Dec, 2013 [facility] [address] [id number] [address] [place] [address], [place] [address] Dec, 2013 [facility] [address] [id number] [address] [place] [address], [place] [address] Dec, 2013 [facility] [address] [id number] [address] [place] [address], [place] [address] Dec, 2013 [facility] [address] [id number] [address] [place] [address], [place] [address] Dec, 2013 [facility] [address] [id number] [address] [place] [address], [place] [address] Dec, 2013 [facility] [address] [id number] [address] [place] [address], [place] [address] Dec, [facility] [address] [id number] [address] [place] [address], [place] [address] Dec, 2013 [facility] [address] [id number] [address] [place] [address], [place] [address] Dec, 2013 [facility] [address] [id number] [address] [place] [address], [place] [address] Dec, 2013 [facility] [address] [id number] [address] [place] [address], [place] [address] Dec, [facility] [address] [id number] [address] [place] [address], [place] [address] Dec, 2013 [facility] [address] [id number] [address] [place] [address], [place] [address] Dec, 2013 [facility] [address] [id number] [address] [place] [address], [place] [address] Dec, [facility] [address] [id number] [address] [place] [address], [place] [address] Dec, [facility] [address] [id number] [address] [place] [address], [place] [address] Dec, [facility] [address] [id number] [address] [place] [address], [place] [address] Dec, [facility] [address] [id number] [address] [place] [address], [place] [address] 22 Nov, 2013 [facility] [address] [id number] [address] [place] [address], [place] [address] 22 Nov, 2013 [facility] [address] [id number] [address] [place] [address], [place] [address] 22 Nov, 2013 [facility] [address] [id number] [address] [place] [address], [place] [address] Nov, 2013 [facility] [address] [id number] [address] [place] [address], [place] [address] 22 Nov, 2013 [facility] [address] [id number] [address] [place] [address], [place] [address] 22 Nov, 2013 [facility] [address] [id number] [address] [place] [address], [place] [address] 17 Nov, 2013 [facility] [address] [id number] [address] [place] [address], [place] [address] 17 Nov, 2013 [facility] [address] [id number] [address] [place] [address], [place] [address] 15 Nov, 2013 [facility] [address] [id number] [address] [place] [address], [place] [address] 15 Nov, 2013 [facility] [address] [id number] [address] [place] [address], [place] [address] 02 Nov, 2013 [facility] [address] [id number] [address] [place] [address], [place] [address] 02 Nov, 2013 [facility] [address] [id number] [facility] [place] [address] Nov, [facility] [address] [id number] [address] [place] [address], [place] [address] Nov, [facility] [address] [id number] [address] [place] [address], [place] [address] Oct, [facility] [address] [id number] [address] [place] [address], [place] [address] Oct, [facility] [address] [id number] [address] [place] [address], [place] [address] Oct, [facility] [address] [id number] [address] [place] [address], [place] [address] Oct, [facility] [address] [id number] [address] [place] [address], [place] [address] Oct, [facility] [address] [id number] [address] [place] [address], [place] [address] Oct, [facility] [address] [id number] [address] [place] [address], [place] [address] Oct, [facility] [address] [id number] [address] [place] [address], [place] [address] Oct, [facility] [address] [id number] [address] [place] [address], [place] [address] Sep, [facility] [address] [id number] [address] [place] [address], [place] [address] Sep, [facility] [address] [id number] [address] [place] [address], [place] [address] Sep, [facility] [address] [id number] [address] [place] [address], [place] [address] Sep, [facility] [address] [id number] [address] [place] [address], [place] [address] Sep, [facility] [address] [id number] [address] [place] [address], [place] [address] Sep, [facility] [address] [id number] [address] [place] [address], [place] [address] Aug, [facility] [address] [id number] [address] [place] [address], [place] [address] Aug, [facility] [address] [id number] [address] [place] [address], [place] [address] July, [facility] [address] [id number] [address] [place] [address], [place] [address] July, [facility] [address] [id number] [address] [place] [address], [place] [address] July, [facility] [address] [id number] [address] [place] [address], [place] [address] July, [facility] [address] [id number] [address] [place] [address], [place] [address] July, [facility] [address] [id number] [address] [place] [address], [place] [address] July, [facility] [address] [id number] [address] [place] [address], [place] [address] July, [facility] [address] [id number] [address] [place] [address], [place] [address] July, [facility] [address] [id number] [address] [place] [address], [place] [address] July, [facility] [address] [id number] [address] [place] [address], [place] [address] July, [facility] [address] [id number] [address] [place] [address], [place] [address] July, [facility] [address] [id number] [address] [place] [address], [place] [address] July, [facility] [address] [id number] [address] [place] [address], [place] [address] July, [facility] [address] [id number] [address] [place] [address], [place] [address] July, [facility] [address] [id number] [address] [place] [address], [place] [address] July, [facility] [address] [id number] [address] [place] [address], [place] [address] July, [facility] [address] [id number] [address] [place] [address], [place] [address] July, [facility] [address] [id number] [address] [place] [address], [place] [address] July, [facility] [address] [id number] [address] [place] [address], [place] [address] Jun, [facility] [address] [id number] [address] [place] [address], [place] [address] Jun, [facility] [address] [id number] [address] [place] [address], [place] [address] Jun, [facility] [address] [id number] [address] [place] [address], [place] [address] Jun, [facility] [address] [id number] [address] [place] [address], [place] [address] Jun, [facility] [address] [id number] [address] [place] [address], [place] [address] Jun, [facility] [address] [id number] [address] [place] [address], [place] [address] Jun, [facility] [address] [id number] [address] [place] [address], [place] [address] Jun, [facility] [address] [id number] [address] [place] [address], [place] [address] Jun, [facility] [address] [id number] [address] [place] [address], [place] [address] Jun, [facility] [address] [id number] [address] [place] [address], [place] [address] Jun, [facility] [address] [id number] [facility] [place] [address] 08 Jun, 2013 [facility] [address] [id number] [address] [place] [address], [place] [address] May, [facility] [address] [id number] [address] [place] [address], [place] [address] May, [facility] [address] [id number] [address] [place] [address], [place] [address] May, [facility] [address] [id number] [address] [place] [address], [place] [address] May, [facility] [address] [id number] [address] [place] [address], [place] [address] May, [facility] [address] [id number] [address] [place] [address], [place] [address] May, [facility] [address] [id number] [address] [place] [address], [place] [address] May, [facility] [address] [id number] [address] [place] [address], [place] [address] May, [facility] [address] [id number] [address] [place] [address], [place] [address] May, [facility] [address] [id number] [address] [place] [address], [place] [address] May, [facility] [address] [id number] [address] [place] [address], [place] [address] Apr, [facility] [address] [id number] [address] [place] [address], [place] [address] Apr, [facility] [address] [id number] [address] [place] [address], [place] [address] Apr, [facility] [address] [id number] [address] [place] [address], [place] [address] Apr, [facility] [address] [id number] [address] [place] [address], [place] [address] Apr, [facility] [address] [id number] [address] [place] [address], [place] [address] Apr, [facility] [address] [id number] [address] [place] [address], [place] [address] Apr, [facility] [address] [id number] [address] [place] [address], [place] [address] Apr, [facility] [address] [id number] [address] [place] [address], [place] [address] Apr, [facility] [address] [id number] [address] [place] [address], [place] [address] Apr, [facility] [address] [id number] [address] [place] [address], [place] [address] Apr, [facility] [address] [id number] [address] [place] [address], [place] [address] Apr, [facility] [address] [id number] [address] [place] [address], [place] [address] Apr, [facility] [address] [id number] [address] [place] [address], [place] [address] Apr, [facility] [address] [id number] [address] [place] [address], [place] [address] Mar, [facility] [address] [id number] [address] [place] [address], [place] [address] Mar, [facility] [address] [id number] [address] [place] [address], [place] [address] Mar, [facility] [address] [id number] [address] [place] [address], [place] [address] Mar, [facility] [address] [id number] [address] [place] [address], [place] [address] Mar, [facility] [address] [id number] [address] [place] [address], [place] [address] Mar, [facility] [address] [id number] [address] [place] [address], [place] [address] Mar, [facility] [address] [id number] [address] [place] [address], [place] [address] Mar, [facility] [address] [id number] [address] [place] [address], [place] [address] Mar, [facility] [address] [id number] [address] [place] [address], [place] [address] Mar, [facility] [address] [id number] [address] [place] [address], [place] [address] Mar, [facility] [address] [id number] [address] [place] [address], [place] [address] Mar, [facility] [address] [id number] [address] [place] [address], [place] [address] Feb, [facility] [address] [id number] [address] [place] [address], [place] [address] Feb, [facility] [address] [id number] [address] [place] [address], [place] [address] Feb, [facility] [address] [id number] [address] [place] [address], [place] [address] Feb, [facility] [address] [id number] [address] [place] [address], [place] [address] Feb, [facility] [address] [id number] [address] [place] [address], [place] [address] Feb, [facility] [address] [id number] [address] [place] [address], [place] [address] Feb, [facility] [address] [id number] [address] [place] [address], [place] [address] Feb, [facility] [address] [id number] [address] [place] [address], [place] [address] Feb, [facility] [address] [id number] [address] [place] [address], [place] [address] Feb, [facility] [address] [id number] [address] [place] [address], [place] [address] Feb, [facility] [address] [id number] [address] [place] [address], [place] [address] Jan, [facility] [address] [id number] [address] [place] [address], [place] [address] Jan, [facility] [address] [id number] [address] [place] [address], [place] [address] Jan, [facility] [address] [id number] [address] [place] [address], [place] [address] Jan, [facility] [address] [id number] [address] [place] [address], [place] [address] Jan, [facility] [address] [id number] [address] [place] [address], [place] [address] Jan, [facility] [address] [id number] [address] [place] [address], [place] [address] Jan, [facility] [address] [id number] [address] [place] [address], [place] [address] Dec, [facility] [address] [id number] [address] [place] [address], [place] [address] Dec, [facility] [address] [id number] [address] [place] [address] Dec, [facility] [address] [id number] [address] [place] [id number] 10 Dec, 2012 [facility] [address] [id number] [address] [place] [address], [place] [address] Dec, [facility] [address] [id number] [address] [place] [id number] 18 Nov, 2012 [facility] [address] [id number] [address] [place] [address], [place] [address] Oct, [facility] [address] [id number] [address] [place] [address], [place] [address] Oct, [facility] [address] [id number] [address] [place] [address], [place] [address] Oct, [facility] [address] [id number] [address] [place] [address], [place] [address] Oct, [facility] [address] [id number] [address] [place] [address], [place] [address] Oct, [facility] [address] [id number] [address] [place] [address], [place] [address] Sep, [facility] [address] [id number] [address] [place] [address], [place] [address] Sep, [facility] [address] [id number] [address] [place] [address], [place] [address] Sep, [facility] [address] [id number] [address] [place] [address], [place] [address] Sep, [facility] [address] [id number] [address] [place] [address], [place] [address] Aug, [facility] [address] [id number] [address] [place] [address], [place] [address] Aug, [facility] [address] [id number] [address] [place] [address], [place] [address] Aug, [facility] [address] [id number] [address] [place] [address], [place] [address] Aug, [facility] [address] [id number] [address] [place] [address], [place] [address] Aug, [facility] [address] [id number] [address] [place] [address], [place] [address] July, [facility] [address] [id number] [address] [place] [address], [place] [address] July, [facility] [address] [id number] [address] [place] [address], [place] [address] July, [facility] [address] [id number] [address] [place] [address], [place] [address] July, [facility] [address] [id number] [address] [place] [address], [place] [address] Jun, [facility] [address] [id number] [address] [place] [address], [place] [address] Jun, [facility] [address] [id number] [address] [place] [address], [place] [address] May, [facility] [address] [id number] [address] [place] [address], [place] [address] May, [facility] [address] [id number] [address] [place] [address], [place] [address] Apr, [facility] [address] [id number] [address] [place] [address], [place] [address] Apr, [facility] [address] [id number] [address] [place] [address], [place] [address] Mar, [facility] [address] [id number] [address] [place] [address], [place] [address] Mar, [facility] [address] [id number] [address] [place] [address], [place] [address] Feb, [facility] [address] [id number] [address] [place] [address], [place] [address] Feb, [facility] [address] [id number] [address] [place] [address], [place] [address] Feb, [facility] [address] [id number] [address] [place] [address], [place] [address] Feb, [facility] [address] [id number] [address] [place] [address], [place] [address] Feb, [facility] [address] [id number] [address] [place] [address], [place] [address] Feb, [facility] [address] [id number] [address] [place] [address], [place] [address] Jan, [facility] [address] [id number] [address] [place] [address], [place] [address] Jan, [facility] [address] [id number] [address] [place] [address], [place] [address] Jan, [facility] [address] [id number] [address] [place] [address], [place] [address] Jan, [facility] [address] [id number] [address] [place] [address], [place] [address] Dec, [facility] [address] [id number] [address] [place] [address], [place] [address] Dec, [facility] [address] [id number] [address] [place] [address], [place] [address] 18 Nov, 2011 [facility] [address] [id number] [address] [place] [address], [place] [address] Nov, [facility] [address] [id number] [address] [place] [address], [place] [address] Nov, [facility] [address] [id number] [address] [place] [address], [place] [address] Oct, [facility] [address] [id number] [address] [place] [address], [place] [address] Sep, [facility] [address] [id number] [address] [place] [address], [place] [address] Aug, [facility] [address] [id number] [address] [place] [address], [place] [address] July, [facility] [address] [id number] [address] [place] [address], [place] [address] July, [facility] [address] [id number] [address] [place] [address], [place] [address] July, [facility] [address] [id number] [address] [place] [address], [place] [address] July, [facility] [address] [id number] [address] [place] [address], [place] [address] July, [facility] [address] [id number] [address] [place] [address], [place] [address] Jun, [facility] [address] [id number] [address] [place] [address], [place] [address] May, [facility] [address] [id number] [address] [place] [address], [place] [address] 29 May, 2011 [facility] [address] [id number] [address] [place] [address], [place] [address] May, [facility] [address] [id number] [address] [place] [address], [place] [address] 28 Apr, 2011 [facility] [address] [id number] [address] [place] [address], [place] [address] Apr, [facility] [address] [id number] [address] [place] [address], [place] [address] 16 Mar, 2011 [facility] [address] [id number] [address] [place] [address], [place] [address] 16 Feb, 2011 [facility] [address] [id number] [address] [place] [address], [place] [address] 16 Feb, 2011 [facility] [address] [id number] [address] [place] [address], [place] [address] 16 Feb, 2011 [facility] [address] [id number] [address] [place] [address], [place] [address] 15 Feb, 2011 [facility] [address] [id number] [address] [place] [address], [place] [address] 14 Feb, 2011 [facility] [address] [id number] [address] [place] [address], [place] [address] 14 Feb, 2011 [facility] [address] [id number] [address] [place] [address], [place] [address] 14 Feb, 2011 [facility] [address] [id number] [address] [place] [address] Jan, [facility] [address] [id number] [address] [place] [address] Jan, [facility] [address] [id number] [address] [place] [address] Jan, [facility] [address] [id number] [address] [place] [address] Aug, [facility] [address] [id number] [address] [place] [address] Feb, [facility] [address] [id number] [address] [place] [address] Feb, [facility] [address] [id number] [address] [place] [address] Feb, [facility] [address] [id number] [address] [place] [address] Dec, [facility] [address] [id number] [address] [place] [address] Jun, [facility] [address] [id number] [address] [place] [address] Dec, [facility] [address] [id number] [address] [place] [address] Sep, IMMUNIZATIONS No Known Immunizations SOCIAL HISTORY Never Assessed REASON FOR VISIT PLAN OF CARE VITAL SIGNS Height 63 in 2013-03-20 Weight 123.2 lbs 2013-03-20 Temperature 97.3 degrees Fahrenheit 2013-03-20 Heart Rate 73 bpm 2013-03-20 Respiratory Rate 20 2013-03-20 Blood pressure systolic 98 mmHg 2013-03-20 Blood pressure diastolic 64 mmHg 2013-03-20 MEDICATIONS Unknown Medications RESULTS No Results PROCEDURES [...]
--- OUTSIDE RECORDS SUMMARY | 2019-07-15 19:46 | XMS REPORT ---
Author Author Shan Gómez [facility] Address [address] [place] [address] Care Team Providers Care Cap Cutter Name Role Phone LORI Gómez Unavailable PROBLEMS Type Condition ICD9-CM Code ZLZ96-CB Code Onset Dates Condition S tatus SNOMED Code Problem Long-term use of high-risk medication Z79.899 Active 221038966 Problem Chronic fatigue R53.82 Active 5270 2003 Problem Low hemoglobin D64.9 Active 82261 7008 Problem Bipolar disorder with depression F31.30 Active 35858835 Problem Generalized anxiety disorder F41.1 A ctive 97358930 Problem Routine gynecological examination Z01.419 Active 851853829 Problem General counseling and advice on female contraception Z30.09 Active 27731676 Problem Iron deficiency anemia due to chronic blood loss D 50.0 Active 37454357 Problem High risk medication use Z79.899 Activ e 900298418 Problem Bipolar disorder, unspecified F31.9 Active 32312845 Problem Unspecified mood [affective] disorder F39 Active 859709777 Problem Amenorrhea N91.2 Active 67218140 Problem Attention deficit hyperactivity disorder (ADHD), combi cosmo type F90.2 Active 412196801 Problem Seasonal allergic rhinitis due to pollen J30.1 Active 17170496 Problem Schizoaffective disorder F25.9 Activ e 55149186 Problem Well woman exam Z01.419 Active 3103 26014 Problem Positive test Z32.01 Active 370082074 Problem Pain in right knee M25.561 Active 8 5017600 Problem care, first in first trimester Z34.01 Active 232550559 Problem Pain in left knee M25.562 Active 30 886816 Problem Vitamin D deficiency E55.9 Active 96307846 Problem Chronic post-traumatic stress disorder (PTSD) F43. 12 Active 565308834 Problem Social phobia F40.10 Active 220816 02 Problem Schizoaffective disorder, bipolar type F25.0 Active 45641031 Problem Relationship problem with family member Z63.8 Active 231996775 ALLERGIES No Information ENCOUNTERS Encounter Location Date Diagnosis [place] [address] [address] July, [facility] [address] [address] July, [place] [address] [address] Jun, [place] [address] [address] Jun, [place] [address] [address] 24 May, 2019 [place] [address] [address] May, [place] [address] [address] 16 May, 2019 [place] [address] [address] May, [place] [address] [address] 12 May, 2019 [place] [address] [address] May, [place] [address] [address] May, care, first in third trimester Z34.03 ; 31 weeks gestation of Z3A.31 and Decreased movements in third trimester, single or unspecified fetus O36.8130 [place] [address] [address] 06 May, 2019 Fever and chills R50.9 and Flu-like symp toms R68.89 [place] [address] [address] Apr, [place] [address] [address] Apr, Second trimester Z34.92 and 27 weeks gestation of Z3A.27 [place] [address] [address] 15 Mar, 2019 Acute non-recurrent maxillary sinusitis J01.00 and Cough R05 [place] [address] [address] 15 Mar, 2019 [place] [address] [address] Mar, [place] [address] [address] Mar, [place] [address] [address] Mar, care in second trimester Z34.92 and 23 weeks gestation of Z3A.[address] [address] Feb, care in second trimester Z34.92 and 19 weeks gestation of Z3A.19 [place] [address] [address] Feb, [place] [address] [address] Feb, care in second trimester Z34.92 ; 19 weeks gestation of Z3A.19 and Encounter for immunization Z23 [address] [address] Feb, Dental examination Z01.20 [place] [address] [address] Feb, [place] [address] [address] Jan, [place] [address] [address] Jan, care in second trimester Z34.92 and 15 weeks gestation of Z3A.15 [place] [address] [address] Dec, First trimester Z34.91 ; 11 we eks gestation of Z3A.11 and Nausea/vomiting in O21.9 [facility] [address] [place] [id number] [place] [address] Dec, [place] [address] [address] Dec, [place] [address] [address] Dec, care, first in first trimester Z34.01 [place] [address] [address] Dec, [place] [address] [address] Dec, Chronic post-traumatic stress disorder ( PTSD) F43.12 ; Relationship problem with family member Z63.8 and Positive test Z32.01 [place] [address] [address] Nov, [place] [address] [address] Nov, care, first in first trimester Z34.01 [place] [address] [address] Nov, [place] [address] [address] Nov, care, first in first trimester Z34.01 and 7 weeks gestation of Z3A.01 [place] [address] [address] 24 Nov, 2018 [place] [address] [address] 20 Nov, 2018 [place] [address] [address] 18 Nov, 2018 [address] [place] [address] 13 Nov, 2018 [place] [address] [address] Nov, [place] [address] [address] 13 Nov, 2018 Positive test Z32.01 ; Well wo man exam with routine gynecological exam Z01.419 ; Amenorrhea N91.2 ; , unspecified gestational age Z34.90 ; Encounter for smoking cessation counseling Z71.6 ; Acute vaginitis N76.0 and Other specified bacterial agents as the cause of diseases classified elsewhere B96.89 [place] [address] [address] Nov, [place] [address] [address] Nov, [place] [address] [address] Oct, Bipolar disorder with depression F31.30 [place] [address] [address] Oct, Bipolar disorder with depression F31.30 ; Chronic post-traumatic stress disorder (PTSD) F43.12 and Relationship problem with family member Z63.8 [place] [address] [address] Aug, Bipolar disorder with depression F31.30 ; Chronic post-traumatic stress disorder (PTSD) F43.12 and Relationship problem with family member Z63.8 [place] [address] [address] Mar, Schizoaffective disorder, bipolar type F 25.0 ; Social phobia F40.10 ; Chronic post-traumatic stress disorder (PTSD) F43.12 and Relationship problem with family member Z63.8 [facility] [address] [id number] [place] [address] Oct, Pain in right shoulder M25.511 and Bipolar disorder with depression F31.30 [place] [address] [address] July, [facility] [address] [address] July, [facility] [address] [address] July, Well woman exam Z01.419 and Vaginal disc harge N89.8 [place] [address] [address] Jun, [facility] [address] [facility] [id number] [address] [place] [address] Mar, [facility] [address] [address] May, Bipolar disorder, unspecified F31.9 [place] [address] [address] May, Bipolar disorder, unspecified F31.9 ; At tention deficit hyperactivity disorder (ADHD), combined type F90.2 and Schizoaffective disorder F25.9 [place] [address] [address] May, Bipolar disorder with depression F31.30 [place] [address] [address] May, Bipolar disorder, unspecified F31.9 ; At tention deficit hyperactivity disorder (ADHD), combined type F90.2 and Schizoaffective disorder F25.9 [place] [address] [address] Apr, Seasonal allergic rhinitis due to pollen J30.1 [place] [address] [address] Apr, [place] [address] [address] Mar, Attention deficit disorder (ADD) without 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 ; Bipolar disorder with depression F31.30 and Generalized anxiety disorder F41.1 [facility] [address] [place] [id number] [place] [address] Mar, [facility] [address] [address] Feb, Unspecified mood [affective] disorder F3 9 [facility] [address] [place] [address] [place] [address] Feb, Unspecified mood [affective] disorder F3 9 [facility] [address] [place] [address] [place] [address] Feb, [place] [address] [address] Jan, Amenorrhea N91.2 ; Vitamin D deficiency E55.9 and Iron deficiency anemia due to chronic blood loss D50.0 [place] [address] [place] [address] [place] [address] Jan, Encounter for test Z32.00 [facility] [address] [address] Dec, Unspecified mood [affective] disorder F3 9 ; Bipolar disorder, unspecified F31.9 and Attention deficit hyperactivity disorder (ADHD), combined type F90.2 [place] [address] [place] [id number] [place] [address] Nov, [facility] [address] [place] [address] [place] [address] Nov, [facility] [address] [address] Nov, [facility] [address] [address] Nov, [place] [address] [address] Nov, [facility] [address] [facility] [id number] [address] [place] [address] Nov, Dysuria R30.0 [facility] [address] [place] [address] [place] [address] Oct, [facility] [address] [address] Oct, [facility] [address] [address] Sep, [place] [address] [address] Sep, Bipolar disorder, unspecified F31.9 and Schizoaffective disorder F25.9 [place] [address] [address] Sep, [place] [address] [address] Aug, Unspecified mood [affective] disorder F3 9 [place] [address] [address] Aug, [place] [address] [address] Aug, General counseling and advice on female contraception Z30.09 and Iron deficiency anemia due to chronic blood loss D50.0 [place] [address] [address] July, Routine gynecological examination Z01.41 9 ; General counseling and advice on female contraception Z30.09 ; High risk medication use Z79.899 ; Other specified bacterial agents as the cause of diseases classified elsewhere B96.89 and Acute vaginitis N76.0 [place] [address] [address] July, Attention deficit hyperactivity disorder (ADHD), combined type F90.2 ; Bipolar disorder, unspecified F31.9 and Schizoaffective disorder F25.9 [place] [address] [address] July, Unspecified mood [affective] disorder F3 9 [place] [address] [address] July, [place] [address] [address] July, [place] [address] [address] July, Low hemoglobin D64.9 [place] [address] [address] July, [place] [address] [address] July, General counselling and advice on contra ception Z30.09 ; Pain in left knee M25.562 ; Pain in right knee M25.561 ; Chronic fatigue R53.82 and Vitamin D deficiency E55.9 [place] [address] [address] Jun, Fatigue R53.83 [place] [address] [address] Jun, Fatigue R53.83 ; Low hemoglobin D64.9 ; Long-term use of high-risk medication Z79.899 ; Sore throat J02.9 and Fever, low grade R50.9 [place] [address] [address] Jun, Unspecified mood [affective] disorder F3 9 [place] [address] [address] May, Unspecified mood [affective] disorder F3 9 [place] [address] [address] May, [place] [address] [address] May, Attention deficit hyperactivity disorder (ADHD), combined type F90.2 ; Bipolar disorder, unspecified F31.9 and Schizoaffective disorder F25.9 [place] [address] [address] May, [place] [address] [address] Apr, [facility] [address] [address] Apr, [facility] [address] [address] Apr, [facility] [address] [address] Apr, [facility] [address] [place] [id number] [place] [id number] Apr, Ingestion of unknown drug T50.901A [facility] [address] [address] Apr, [place] [address] [address] Apr, Unspecified mood [affective] disorder F3 9 [place] [address] [address] 16 Apr, 2015 Unspecified mood [affective] disorder F3 9 [place] [address] [address] Apr, Unspecified mood [affective] disorder F3 9 [place] [address] [address] 03 Apr, 2015 long term care social worker use of drug Z79.899 ; Attentio n deficit hyperactivity disorder (ADHD), combined type F90.2 ; Bipolar disorder, unspecified F31.9 and Schizoaffective disorder F25.9 [facility] [address] [place] [address] [place] [address] Mar, Unspecified mood [affective] disorder F3 9 [facility] [address] [place] [id number] [place] [id number] Mar, Menstrual period late N91.0 and High ris k sexual behavior Z72.51 [facility] [address] [address] Mar, Unspecified mood [affective] disorder F3 9 [facility] [address] [id number] [place] [address] Mar, Unspecified mood [affective] disorder F3 9 [facility] [address] [place] [id number] [place] [address] Mar, Unspecified mood [affective] disorder F3 9 [facility] [address] [address] Feb, [facility] [address] [address] Feb, Attention deficit hyperactivity disorder (ADHD), combined type F90.2 ; Episodic mood disorder 296.90 and Bipolar disorder, unspecified F31.9 [facility] [address] [place] [id number] [place] [address] Feb, Major depressive disorder, recurrent, mo derate F33.1 [facility] [address] [address] Feb, Unspecified mood [affective] disorder F3 9 [facility] [address] [place] [id number] [place] [address] Feb, Unspecified mood [affective] disorder F3 9 [facility] [address] [place] [id number] [place] [address] Feb, [facility] [address] [place] [id number] [place] [address] Feb, Unspecified mood [affective] disorder F3 9 [facility] [address] [place] [id number] [place] [address] Feb, Bipolar disorder, unspecified F31.9 [facility] [address] [place] [id number] [place] [address] Jan, [facility] [address] [place] [id number] [place] [address] Jan, Unspecified mood [affective] disorder F3 9 [facility] [address] [place] [address] [place] [address] Jan, Unspecified mood [affective] disorder F3 9 [facility] [address] [place] [id number] [place] [address] Jan, Bipolar disorder, unspecified F31.9 [facility] [address] [place] [id number] [place] [address] Jan, Attention deficit hyperactivity disorder (ADHD), combined type F90.2 and Bipolar disorder, unspecified F31.9 [facility] [address] [place] [address] [place] [address] Jan, [facility] [address] [address] Jan, [facility] [address] [address] Jan, Unspecified mood [affective] disorder F3 9 [facility] [address] [address] Dec, Unspecified mood [affective] disorder F3 9 [facility] [address] [address] Dec, Unspecified mood [affective] disorder F3 9 [facility] [address] [address] Dec, Unspecified mood [affective] disorder F3 9 [facility] [address] [address] Dec, [facility] [address] [address] Dec, Viral upper respiratory tract infection J06.9 ; Encounter for immunization Z23 and Smoker F17.200 [facility] [address] [place] [address] [place] [address] Dec, [facility] [address] [address] Dec, Schizoaffective disorder F25.9 and Atten tion deficit hyperactivity disorder (ADHD), combined type F90.2 [facility] [address] [address] Nov, [facility] [address] [address] Nov, Unspecified mood [affective] disorder F3 9 [facility] [address] [address] Nov, Schizoaffective disorder, unspecified 29 5.70 ; Generalized anxiety disorder 300.02 and Attention deficit disorder of childhood with hyperactivity 314.01 [facility] [address] [address] Oct, [facility] [address] [address] Oct, [facility] [address] [address] Oct, [facility] [address] [address] Oct, Affective disorder 296.90 [facility] [address] [address] Oct, Screen for STD (sexually transmitted dis ease) V74.5 and Encounter for counseling regarding contraception V25.09 [facility] [address] [address] Sep, [facility] [address] [address] Sep, [facility] [address] [address] Sep, Episodic mood disorder 296.90 [facility] [address] [address] Sep, [facility] [address] [address] Sep, [facility] [address] [address] Aug, [facility] [address] [address] Aug, [facility] [address] [id number] [place] [address] Aug, [facility] [address] [id number] [place] [address] Aug, Episodic mood disorder 296.90 [facility] [address] [id number] [place] [address] Aug, [facility] [address] [place] [id number] [place] [address] July, Allergic rhinitis 477.9 [facility] [address] [id number] [place] [address] July, Schizoaffective disorder, unspecified 29 5.70 [facility] [address] [id number] [place] [address] July, [facility] [address] [place] [id number] [place] [address] 14 Jun, 2014 [facility] [address] [id number] [place] [address] Jun, [facility] [address] [place] [id number] [place] [address] 24 May, 2014 [facility] [address] [id number] [place] [address] 24 May, 2014 [facility] [address] [place] [id number] [place] [address] May, [facility] [address] [id number] [place] [address] May, [facility] [address] [id number] [place] [address] Apr, [facility] [address] [id number] [place] [address] Apr, [facility] [address] [id number] [place] [address] Apr, [facility] [address] [id number] [place] [address] Apr, 2014 [facility] [address] [id number] [place] [address] Apr, [facility] [address] [id number] [place] [address] Apr, [facility] [address] [id number] [place] [address] Apr, [facility] [address] [id number] [place] [address] Apr, [facility] [address] [id number] [place] [address] Mar, [facility] [address] [id number] [place] [address] Mar, [facility] [address] [place] [id number] [place] [address] Mar, [facility] [address] [id number] [place] [address] Mar, [facility] [address] [id number] [place] [address] Feb, [facility] [address] [id number] [place] [address] Feb, [facility] [address] [id number] [place] [address] Feb, [facility] [address] [id number] [place] [address] 30 Feb, 2014 [facility] [address] [id number] [place] [address] Feb, [facility] [id number] [place] [address] Feb, [facility] [address] [id number] [place] [address] Feb, [facility] [address] [id number] [place] [address] 08 Feb, 2014 [facility] [address] [id number] [place] [address] 08 Feb, 2014 [facility] [address] [id number] [place] [address] Feb, [facility] [address] [id number] [place] [address] Feb, [facility] [address] [id number] [place] [address] Jan, [facility] [address] [id number] [place] [address] Jan, [facility] [address] [id number] [place] [address] Dec, [facility] [address] [id number] [place] [address] Dec, [facility] [address] [id number] [place] [address] Dec, [facility] [address] [id number] [place] [address] Dec, [facility] [address] [id number] [place] [address] Dec, [facility] [address] [id number] [place] [address] Dec, [facility] [address] [id number] [place] [address] Dec, [facility] [address] [id number] [place] [address] Dec, [facility] [address] [id number] [place] [address] Dec, [facility] [address] [id number] [place] [address] Dec, [facility] [address] [id number] [place] [address] Dec, [facility] [address] [id number] [place] [address] Dec, 2013 [facility] [address] [facility] [id number] [place] [address] Dec, [facility] [address] [facility] [id number] [place] [address] Dec, [facility] [address] [id number] [place] [address] Dec, [facility] [address] [id number] [place] [address] Dec, [facility] [address] [id number] [place] [address] Dec, [facility] [address] [id number] [place] [address] Dec, [facility] [address] [id number] [place] [address] Dec, [facility] [address] [id number] [place] [address] Dec, 2013 [facility] [address] [id number] [place] [address] Dec, [facility] [address] [id number] [place] [address] Dec, [facility] [facility] [address] [id number] [place] [address] Dec, [facility] [address] [id number] [place] [address] Dec, 2013 [facility] [address] [id number] [place] [address] Nov, 2013 [facility] [address] [id number] [place] [address] Nov, 2013 [facility] [address] [id number] [place] [address] Nov, 2013 [facility] [address] [id number] [place] [address] Nov, 2013 [facility] [address] [id number] [place] [address] 22 Nov, 2013 [facility] [address] [facility] [id number] [place] [address] 22 Nov, 2013 [facility] [address] [facility] [id number] [place] [address] 17 Nov, 2013 [facility] [address] [id number] [place] [address] 17 Nov, 2013 [facility] [address] [facility] [id number] [place] [address] 15 Nov, 2013 [facility] [address] [facility] [id number] [place] [address] 15 Nov, 2013 [facility] [address] [id number] [place] [address] Nov, 2013 [facility] [address] [id number] [place] [address] Nov, 2013 [facility] [address] [id number] [place] [address] Nov, 2013 [facility] [address] [facility] [id number] [place] [address] Nov, [facility] [address] [id number] [place] [address] Oct, [facility] [address] [id number] [place] [address] Oct, [facility] [address] [id number] [place] [address] Oct, [facility] [address] [facility] [id number] [place] [address] Oct, [facility] [address] [id number] [place] [address] Oct, [facility] [address] [id number] [place] [address] Oct, [facility] [address] [id number] [place] [address] Oct, [facility] [address] [id number] [place] [address] Oct, [facility] [address] [facility] [id number] [place] [address] Sep, [facility] [address] [facility] [id number] [place] [address] Sep, [facility] [address] [facility] [id number] [place] [address] Sep, [facility] [address] [facility] [id number] [place] [address] Sep, [facility] [address] [id number] [place] [address] Sep, [facility] [address] [id number] [place] [address] Sep, [facility] [address] [id number] [place] [address] Aug, [facility] [address] [facility] [id number] [place] [address] Aug, [facility] [address] [id number] [place] [address] July, [facility] [address] [id number] [place] [address] July, [facility] [address] [id number] [place] [address] July, [facility] [address] [facility] [id number] [place] [address] July, [facility] [address] [id number] [place] [address] July, [facility] [address] [id number] [place] [address] July, [facility] [address] [id number] [place] [address] July, [facility] [address] [id number] [place] [address] July, [facility] [address] [id number] [place] [address] July, [facility] [address] [id number] [place] [address] July, [facility] [address] [id number] [place] [address] July, [facility] [address] [id number] [place] [address] July, [facility] [address] [id number] [place] [address] July, [facility] [address] [id number] [place] [address] July, [facility] [address] [id number] [place] [address] July, [facility] [address] [id number] [place] [address] July, [facility] [address] [id number] [place] [address] July, [facility] [address] [id number] [place] [address] July, [facility] [address] [id number] [place] [address] Jun, [facility] [address] [id number] [place] [address] Jun, [facility] [address] [id number] [place] [address] Jun, [facility] [address] [id number] [place] [address] Jun, [facility] [address] [id number] [place] [address] Jun, [facility] [address] [id number] [place] [address] Jun, [facility] [address] [facility] [id number] [place] [address] 10 Jun, 2013 [facility] [address] [id number] [place] [address] Jun, [facility] [address] [id number] [place] [address] Jun, [facility] [address] [id number] [place] [address] Jun, [facility] [address] [id number] [place] [address] Jun, [facility] [address] [id number] [place] [address] Jun, [facility] [address] [id number] [place] [address] May, [facility] [address] [id number] [place] [address] May, [facility] [address] [id number] [place] [address] May, [facility] [address] [id number] [place] [address] May, [facility] [address] [id number] [place] [address] May, [facility] [address] [id number] [place] [address] May, [facility] [address] [id number] [place] [address] May, [facility] [address] [id number] [place] [address] May, [facility] [address] [id number] [place] [address] May, [facility] [address] [id number] [place] [address] May, [facility] [address] [id number] [place] [address] Apr, [facility] [address] [facility] [id number] [place] [address] Apr, [facility] [address] [facility] [id number] [place] [place] [address] Apr, [facility] [address] [id number] [place] [place] [address] Apr, [facility] [address] [id number] [place] [place] [address] Apr, [facility] [address] [facility] [id number] [place] [address] Apr, [facility] [address] [id number] [place] [place] [address] Apr, [facility] [address] [id number] [place] [address] Apr, [facility] [address] [id number] [place] [address] Apr, [facility] [address] [id number] [place] [place] [address] Apr, [facility] [address] [id number] [place] [address] Apr, [facility] [address] [id number] [place] [address] Apr, [facility] [address] [id number] [place] [address] Apr, [facility] [address] [id number] [place] [address] Apr, [facility] [address] [id number] [place] [address] Mar, [facility] [address] [id number] [place] [address] Mar, [facility] [address] [id number] [place] [address] Mar, [facility] [address] [id number] [place] [address] Mar, [facility] [address] [id number] [place] [address] Mar, [facility] [address] [id number] [place] [address] Mar, [facility] [address] [id number] [place] [address] Mar, [facility] [address] [id number] [place] [address] Mar, [facility] [address] [id number] [place] [address] Mar, [facility] [address] [id number] [place] [address] Mar, [facility] [address] [id number] [place] [address] Mar, [facility] [address] [id number] [place] [address] Mar, [facility] [address] [id number] [place] [address] Feb, [facility] [address] [id number] [place] [address] Feb, [facility] [address] [id number] [place] [address] Feb, [facility] [address] [id number] [place] [address] Feb, [facility] [address] [id number] [place] [address] Feb, [facility] [address] [id number] [place] [address] Feb, [facility] [address] [id number] [place] [address] Feb, [facility] [address] [id number] [place] [address] 05 Feb, 2012 [facility] [address] [id number] [place] [address] 05 Feb, 2012 [facility] [address] [id number] [place] [address] Feb, [facility] [address] [id number] [place] [address] Feb, [facility] [address] [id number] [place] [address] Jan, [facility] [address] [id number] [place] [address] Jan, [facility] [address] [id number] [place] [address] Jan, [facility] [address] [id number] [place] [address] Jan, [facility] [address] [id number] [place] [address] Jan, [facility] [address] [id number] [place] [address] Jan, [facility] [address] [id number] [place] [address] Jan, [facility] [address] [id number] [place] [address] Dec, [facility] [address] [id number] [place] [address] Dec, [facility] [address] [id number] [place] [address] Dec, [facility] [address] [id number] [place] [address] 10 Dec, 2012 [facility] [address] [id number] [place] [address] 04 Dec, 2012 [facility] [address] [id number] [place] [address] 18 Nov, 2012 [facility] [address] [id number] [place] [address] Oct, [facility] [address] [id number] [place] [address] Oct, [facility] [address] [id number] [place] [address] Oct, [facility] [address] [id number] [place] [address] Oct, [facility] [address] [id number] [place] [address] Oct, [facility] [address] [id number] [place] [address] Sep, [facility] [address] [id number] [place] [address] Sep, [facility] [address] [id number] [place] [address] Sep, [facility] [address] [id number] [place] [address] Sep, [facility] [address] [id number] [place] [address] Aug, [facility] [address] [id number] [place] [address] Aug, [facility] [address] [id number] [place] [address] Aug, [facility] [address] [id number] [place] [address] Aug, [facility] [address] [id number] [place] [address] Aug, [facility] [address] [id number] [place] [address] July, [facility] [address] [id number] [place] [address] July, [facility] [address] [id number] [place] [address] July, [facility] [address] [id number] [place] [address] July, [facility] [address] [id number] [place] [address] Jun, [facility] [address] [id number] [place] [address] Jun, [facility] [address] [id number] [place] [address] May, [facility] [address] [id number] [place] [address] May, [facility] [address] [id number] [place] [address] Apr, [facility] [address] [id number] [place] [address] Apr, [facility] [address] [id number] [place] [address] Mar, [facility] [address] [id number] [place] [address] Mar, [facility] [address] [id number] [place] [address] Feb, [facility] [address] [id number] [place] [address] Feb, [facility] [address] [id number] [place] [address] Feb, [facility] [address] [id number] [place] [address] Feb, [facility] [address] [id number] [place] [address] Feb, [facility] [address] [id number] [place] [address] Feb, [facility] [address] [id number] [place] [address] Jan, [facility] [address] [id number] [place] [address] Jan, [facility] [address] [id number] [place] [address] Jan, [facility] [address] [id number] [place] [address] Jan, [facility] [address] [id number] [place] [address] Dec, [facility] [address] [id number] [place] [address] Dec, [facility] [address] [id number] [place] [address] Nov, [facility] [address] [id number] [place] [address] Nov, [facility] [address] [id number] [place] [address] Nov, [facility] [address] [id number] [place] [address] Oct, [facility] [address] [id number] [place] [address] Sep, [facility] [address] [id number] [place] [address] Aug, [facility] [address] [id number] [place] [address] July, [facility] [address] [id number] [place] [address] July, [facility] [address] [id number] [place] [address] July, [facility] [address] [id number] [place] [address] July, [facility] [address] [id number] [place] [address] July, [facility] [address] [id number] [place] [address] Jun, [facility] [address] [id number] [place] [address] 29 May, 2011 [facility] [address] [id number] [place] [address] 29 May, 2011 [facility] [address] [id number] [place] [address] 14 May, 2011 [facility] [address] [id number] [place] [address] 28 Apr, 2011 [facility] [address] [id number] [place] [address] 20 Apr, 2011 [facility] [address] [id number] [place] [address] 16 Mar, 2011 [facility] [address] [id number] [place] [address] 16 Feb, 2011 [facility] [address] [id number] [place] [address] 16 Feb, 2011 [facility] [address] [id number] [place] [address] 16 Feb, 2011 [facility] [address] [id number] [place] [address] 15 Feb, 2011 [facility] [address] [id number] [place] [address] 14 Feb, 2011 [facility] [address] [id number] [place] [address] 14 Feb, 2011 [facility] [address] [id number] [place] [address] 14 Feb, 2011 [facility] [address] [id number] [place] [address] 29 Jan, 2011 [facility] [id number] [place] [address] 19 Jan, 2011 [facility] [address] [id number] [place] [address] 19 Jan, 2011 [facility] [id number] [place] [address] Aug, [facility] [address] [id number] [place] [address] Feb, [facility] [address] [id number] [place] [address] Feb, [facility] [address] [id number] [place] [address] Feb, [facility] [address] [id number] [place] [address] Dec, [facility] [address] [id number] [place] [address] Jun, [facility] [id number] [place] [address] Dec, [facility] [address] [id number] [place] [address] Sep, IMMUNIZATIONS No Known Immunizations SOCIAL HISTORY [...] History Meniscus Repair Left Knee Hospitalization History [facility] Mental Breakdown 05/22 15 Hospitalization History Overdose VC 07/17/15 Hospitalization History Overdose 01/2018
--- OUTSIDE RECORDS SUMMARY | 2019-07-15 19:46 | XMS REPORT ---
Author Author Shan Can Doctor Organization [facility] [address] [facility] Address Unknown Phone Unavailable Care Team Providers Care Platform Stapler Name Role Phone Migration, Doctor Unavailable Unavailable PROBLEMS Type Condition ICD9-CM Code [id number] Code Onset Dates Condition S tatus SNOMED Code Problem Long-term use of high-risk medication Z79.899 Active 929168089 Problem Chronic fatigue R53.82 Active 5270 2003 Problem Low hemoglobin D64.9 Active 31867 7008 Problem Bipolar disorder with depression F31.30 Active 58695110 Problem Generalized anxiety disorder F41.1 A ctive 86881409 Problem Routine gynecological examination Z01.419 Active 815775265 Problem General counseling and advice on female contraception Z30.09 Active 05114320 Problem Iron deficiency anemia due to chronic blood loss D 50.0 Active 52982904 Problem High risk medication use Z79.899 Activ e 935255986 Problem Bipolar disorder, unspecified F31.9 Active 95237435 Problem Unspecified mood [affective] disorder F39 Active 653910463 Problem Amenorrhea N91.2 Active 41794093 Problem Attention deficit hyperactivity disorder (ADHD), combi cosmo type F90.2 Active 336983701 Problem Seasonal allergic rhinitis due to pollen J30.1 Active 69462502 Problem Schizoaffective disorder F25.9 Activ e 25198852 Problem Well woman exam Z01.419 Active 3103 85396 Problem Positive test Z32.01 Active 794770470 Problem Pain in right knee M25.561 Active 8 7991182 Problem care, first in first trimester Z34.01 Active 261381432 Problem Pain in left knee M25.562 Active 30 199695 Problem Vitamin D deficiency E55.9 Active 53828101 Problem Chronic post-traumatic stress disorder (PTSD) F43. 12 Active 747667325 Problem Social phobia F40.10 Active 283334 02 Problem Schizoaffective disorder, bipolar type F25.0 Active 54639712 Problem Relationship problem with family member Z63.8 Active 110727125 ALLERGIES No Information ENCOUNTERS Encounter Location Date Diagnosis [facility] [id number] [place] [address] July, [facility] [address] [address] July, [facility] [address] [address] Jun, [facility] [address] [address] Jun, [facility] [address] [address] 24 May, 2019 [facility] [address] [address] 16 May, 2019 [facility] [address] [address] 16 May, 2019 [place] [address] [address] 12 May, 2019 [facility] [address] [address] May, [place] [address] [address] 10 May, 2019 care, first in third trimester Z34.03 ; 31 weeks gestation of Z3A.31 and Decreased movements in third trimester, single or unspecified fetus O36.8130 [place] [address] [address] 06 May, 2019 Fever and chills R50.9 and Flu-like symp toms R68.89 [place] [address] [address] Apr, [place] [address] [address] 11 Apr, 2019 Second trimester Z34.92 and 27 weeks gestation of Z3A.27 [place] [address] [address] Mar, Acute non-recurrent maxillary sinusitis J01.00 and Cough R05 [place] [address] [address] Mar, [place] [address] [address] Mar, [place] [address] [address] Mar, [place] [address] [address] Mar, care in second trimester Z34.92 and 23 weeks gestation of Z3A.23 [place] [address] [address] Feb, care in second trimester Z34.92 and 19 weeks gestation of Z3A.19 [place] [address] [address] Feb, [place] [address] [address] Feb, care in second trimester Z34.92 ; 19 weeks gestation of Z3A.19 and Encounter for immunization Z23 [address] [address] Feb, Dental examination Z01.[address] [address] Feb, [place] [address] [address] Jan, [place] [address] [address] Jan, care in second trimester Z34.92 and 15 weeks gestation of Z3A.15 [place] [address] [address] Dec, First trimester Z34.91 ; 11 we eks gestation of Z3A.11 and Nausea/vomiting in O21.9 [facility] [id number] [place] [address] Dec, [facility] [id number] [place] [address] Dec, [facility] [id number] [place] [address] 14 Dec, 2018 care, first in first trimester Z34.01 [facility] [id number] [place] [address] 08 Dec, 2018 [facility] [id number] [place] [address] 08 Dec, 2018 Chronic post-traumatic stress disorder ( PTSD) F43.12 ; Relationship problem with family member Z63.8 and Positive test Z32.01 [facility] [id number] [place] [address] 26 Nov, 2018 [facility] [address] [address] 26 Nov, 2018 care, first in first trimester Z34.01 [facility] [id number] [place] [address] Nov, [facility] [id number] [place] [address] 25 Nov, 2018 care, first in first trimester Z34.01 and 7 weeks gestation of Z3A.01 [facility] [id number] [place] [address] 24 Nov, 2018 [facility] [id number] [place] [address] 20 Nov, 2018 [facility] [id number] [place] [address] 18 Nov, 2018 [facility] [address] [address] 13 Nov, 2018 [facility] [address] [address] 13 Nov, 2018 [facility] [address] [address] 13 Nov, 2018 Positive test Z32.01 ; Well wo man exam with routine gynecological exam Z01.419 ; Amenorrhea N91.2 ; , unspecified gestational age Z34.90 ; Encounter for smoking cessation counseling Z71.6 ; Acute vaginitis N76.0 and Other specified bacterial agents as the cause of diseases classified elsewhere B96.89 [place] [address] [address] 11 Nov, 2018 [place] [address] [address] Nov, [place] [address] [address] 12 Oct, 2018 Bipolar disorder with depression F31.30 [place] [address] [address] Oct, Bipolar disorder with depression F31.30 ; Chronic post-traumatic stress disorder (PTSD) F43.12 and Relationship problem with family member Z63.8 [place] [address] [address] Aug, Bipolar disorder with depression F31.30 ; Chronic post-traumatic stress disorder (PTSD) F43.12 and Relationship problem with family member Z63.8 [place] [address] [address] Mar, Schizoaffective disorder, bipolar type F 25.0 ; Social phobia F40.10 ; Chronic post-traumatic stress disorder (PTSD) F43.12 and Relationship problem with family member Z63.8 [facility] [id number] [place] [address] Oct, Pain in right shoulder M25.511 and Bipolar disorder with depression F31.30 [place] [address] [address] July, [place] [address] [address] July, [place] [address] [address] July, Well woman exam Z01.419 and Vaginal disc harge N89.8 [place] [address] [address] Jun, [facility] [id number] [place] [address] Mar, [facility] [address] [address] May, Bipolar disorder, unspecified F31.9 [place] [address] [address] May, Bipolar disorder, unspecified F31.9 ; At tention deficit hyperactivity disorder (ADHD), combined type F90.2 and Schizoaffective disorder F25.9 [place] [address] [address] May, Bipolar disorder with depression F31.30 [place] [address] [address] May, Bipolar disorder, unspecified F31.9 ; At tention deficit hyperactivity disorder (ADHD), combined type F90.2 and Schizoaffective disorder F25.9 [place] [address] [address] Apr, Seasonal allergic rhinitis due to pollen J30.1 [place] [address] [address] Apr, [place] [address] [address] Mar, Attention deficit disorder (ADD) without 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 ; Bipolar disorder with depression F31.30 and Generalized anxiety disorder F41.1 [place] [address] [address] Mar, [place] [address] [address] Feb, Unspecified mood [affective] disorder F3 9 [facility] [address] [id number] [place] [address] Feb, Unspecified mood [affective] disorder F3 9 [facility] [address] [id number] [place] [address] Feb, [facility] [id number] [place] [address] Jan, Amenorrhea N91.2 ; Vitamin D deficiency E55.9 and Iron deficiency anemia due to chronic blood loss D50.0 [facility] [id number] [place] [address] Jan, Encounter for test Z32.00 [facility] [id number] [place] [address] Dec, Unspecified mood [affective] disorder F3 9 ; Bipolar disorder, unspecified F31.9 and Attention deficit hyperactivity disorder (ADHD), combined type F90.2 [facility] [id number] [place] [address] Nov, [facility] [address] [address] Nov, [facility] [id number] [place] [address] Nov, [facility] [id number] [place] [address] Nov, [facility] [id number] [place] [address] Nov, [facility] [id number] [place] [address] Nov, Dysuria R30.0 [facility] [address] [id number] [place] [address] Oct, [facility] [id number] [place] [address] Oct, [facility] [id number] [place] [address] Sep, [place] [address] [address] Sep, Bipolar disorder, unspecified F31.9 and Schizoaffective disorder F25.9 [place] [address] [address] Sep, [place] [address] [address] Aug, Unspecified mood [affective] disorder F3 9 [address] [address] [address] Aug, [place] [address] [address] Aug, General counseling and advice on female contraception Z30.09 and Iron deficiency anemia due to chronic blood loss D50.0 [place] [address] [address] July, Routine gynecological examination Z01.41 9 ; General counseling and advice on female contraception Z30.09 ; High risk medication use Z79.899 ; Other specified bacterial agents as the cause of diseases classified elsewhere B96.89 and Acute vaginitis N76.0 [place] [address] [address] July, Attention deficit hyperactivity disorder (ADHD), combined type F90.2 ; Bipolar disorder, unspecified F31.9 and Schizoaffective disorder F25.9 [address] [address] [address] July, Unspecified mood [affective] disorder F3 9 [address] [address] [address] July, [place] [address] [address] July, [place] [address] [address] July, Low hemoglobin D64.9 [place] [address] [address] July, [address] [address] [address] July, General counselling and advice on contra ception Z30.09 ; Pain in left knee M25.562 ; Pain in right knee M25.561 ; Chronic fatigue R53.82 and Vitamin D deficiency E55.9 [address] [address] [address] Jun, Fatigue R53.83 [address] [address] [address] Jun, Fatigue R53.83 ; Low hemoglobin D64.9 ; Long-term use of high-risk medication Z79.899 ; Sore throat J02.9 and Fever, low grade R50.9 [address] [address] [address] Jun, Unspecified mood [affective] disorder F3 9 [address] [address] [address] May, Unspecified mood [affective] disorder F3 9 [address] [address] [address] May, [address] [address] [address] May, Attention deficit hyperactivity disorder (ADHD), combined type F90.2 ; Bipolar disorder, unspecified F31.9 and Schizoaffective disorder F25.9 [address] [address] [address] May, [address] [address] [address] Apr, [address] [address] [address] Apr, [place] [address] [place] [address] Apr, [facility] [id number] [place] [address] Apr, [facility] [address] [id number] [place] [id number] Apr, Ingestion of unknown drug T50.901A [facility] [address] [address] Apr, [facility] [address] [address] Apr, Unspecified mood [affective] disorder F3 9 [address] [address] [address] 16 Apr, 2015 Unspecified mood [affective] disorder F3 9 [address] [address] [address] Apr, Unspecified mood [affective] disorder F3 9 [address] [address] 03 Apr, 2015 custodial use of drug Z79.899 ; Attentio n deficit hyperactivity disorder (ADHD), combined type F90.2 ; Bipolar disorder, unspecified F31.9 and Schizoaffective disorder F25.9 [place] [address] [address] Mar, Unspecified mood [affective] disorder F3 9 [facility] [address] [id number] [place] [id number] Mar, Menstrual period late N91.0 and High ris k sexual behavior Z72.51 [facility] [address] [address] Mar, Unspecified mood [affective] disorder F3 9 [address] [address] [address] Mar, Unspecified mood [affective] disorder F3 9 [address] [address] [place] [address] Mar, Unspecified mood [affective] disorder F3 9 [facility] [address] [address] Feb, [facility] [address] [address] Feb, Attention deficit hyperactivity disorder (ADHD), combined type F90.2 ; Episodic mood disorder 296.90 and Bipolar disorder, unspecified F31.9 [facility] [address] [address] Feb, Major depressive disorder, recurrent, mo derate F33.1 [facility] [address] [address] Feb, Unspecified mood [affective] disorder F3 9 [facility] [address] [address] Feb, Unspecified mood [affective] disorder F3 9 [facility] [address] [address] Feb, [facility] [address] [address] Feb, Unspecified mood [affective] disorder F3 9 [facility] [address] [address] Feb, Bipolar disorder, unspecified F31.9 [facility] [address] [address] Jan, [facility] [id number] [place] [address] Jan, Unspecified mood [affective] disorder F3 9 [facility] [address] [address] Jan, Unspecified mood [affective] disorder F3 9 [facility] [address] [address] Jan, Bipolar disorder, unspecified F31.9 [facility] [address] [address] Jan, Attention deficit hyperactivity disorder (ADHD), combined type F90.2 and Bipolar disorder, unspecified F31.9 [facility] [address] [address] Jan, [facility] [address] [address] Jan, [facility] [address] [address] Jan, Unspecified mood [affective] disorder F3 9 [facility] [address] [address] Dec, Unspecified mood [affective] disorder F3 9 [facility] [address] [address] Dec, Unspecified mood [affective] disorder F3 9 [address] [address] [address] Dec, Unspecified mood [affective] disorder F3 9 [facility] [address] [address] Dec, [facility] [address] [address] Dec, Viral upper respiratory tract infection J06.9 ; Encounter for immunization Z23 and Smoker F17.200 [facility] [address] [address] Dec, [facility] [address] [address] Dec, Schizoaffective disorder F25.9 and Atten tion deficit hyperactivity disorder (ADHD), combined type F90.2 [facility] [address] [address] Nov, [facility] [address] [address] Nov, Unspecified mood [affective] disorder F3 9 [facility] [id number] [place] [address] Nov, Schizoaffective disorder, unspecified 29 5.70 ; Generalized anxiety disorder 300.02 and Attention deficit disorder of childhood with hyperactivity 314.01 [facility] [id number] [place] [address] Oct, [facility] [address] [address] Oct, [facility] [address] [address] Oct, [facility] [address] [address] Oct, Affective disorder 296.90 [facility] [address] [address] Oct, Screen for STD (sexually transmitted dis ease) V74.5 and Encounter for counseling regarding contraception V25.09 [facility] [address] [address] Sep, [facility] [address] [address] Sep, [facility] [address] [address] Sep, Episodic mood disorder 296.90 [facility] [address] [address] Sep, [facility] [address] [address] Sep, [facility] [address] [address] Aug, [facility] [address] [address] Aug, [facility] [address] [address] Aug, [facility] [address] [address] Aug, Episodic mood disorder 296.90 [facility] [id number] [place] [address] Aug, [facility] [id number] [place] [address] July, Allergic rhinitis 477.9 [facility] [id number] [place] [address] July, Schizoaffective disorder, unspecified 29 5.70 [facility] [id number] [place] [address] July, [facility] [id number] [place] [address] Jun, [facility] [id number] [place] [address] Jun, [facility] [id number] [place] [address] May, [facility] [id number] [place] [address] 24 May, 2014 [facility] [id number] [place] [address] May, [facility] [id number] [place] [address] May, [facility] [id number] [place] [address] Apr, [facility] [id number] [place] [address] Apr, [facility] [id number] [place] [address] Apr, [facility] [id number] [place] [address] Apr, [facility] [id number] [place] [address] Apr, [facility] [address] [id number] [place] [address] Apr, 2014 [facility] [address] [id number] [place] [address] Apr, [facility] [address] [id number] [place] [address] Apr, [facility] [address] [id number] [place] [address] Mar, [facility] [address] [id number] [place] [address] Mar, [facility] [address] [id number] [place] [address] Mar, [facility] [address] [id number] [place] [address] Mar, [facility] [address] [id number] [place] [address] Feb, [facility] [address] [id number] [place] [address] Feb, [facility] [address] [id number] [place] [address] Feb, [facility] [address] [id number] [place] [address] Feb, [facility] [address] [id number] [place] [address] Feb, [facility] [address] [id number] [place] [address] Feb, [facility] [address] [id number] [place] [address] Feb, [facility] [address] [id number] [place] [address] Feb, [facility] [address] [id number] [place] [address] Feb, [facility] [address] [id number] [place] [address] Feb, [facility] [address] [id number] [place] [address] Feb, [facility] [address] [id number] [place] [address] Jan, [facility] [address] [id number] [place] [address] Jan, [facility] [address] [id number] [place] [address] Dec, [facility] [id number] [place] [address] Dec, [facility] [address] [id number] [place] [address] Dec, [facility] [address] [id number] [place] [address] Dec, [facility] [address] [id number] [place] [address] Dec, [facility] [address] [id number] [place] [address] Dec, [facility] [address] [id number] [place] [address] Dec, [facility] [address] [id number] [place] [address] Dec, 2013 [facility] [address] [id number] [place] [address] Dec, [facility] [address] [id number] [place] [address] Dec, [facility] [address] [id number] [place] [address] Dec, [facility] [address] [id number] [place] [address] Dec, [facility] [address] [id number] [place] [address] Dec, [facility] [address] [id number] [place] [address] 08 Dec, 2013 [facility] [address] [id number] [place] [address] Dec, [facility] [address] [id number] [place] [address] Dec, [facility] [address] [id number] [place] [address] Dec, [facility] [address] [id number] [place] [address] Dec, [facility] [address] [id number] [place] [address] Dec, [facility] [address] [id number] [place] [address] Dec, [facility] [address] [id number] [place] [address] Dec, [facility] [address] [id number] [place] [address] Dec, [facility] [address] [id number] [place] [address] Dec, [facility] [address] [id number] [place] [address] Dec, [facility] [address] [id number] [place] [address] Nov, 2013 [facility] [address] [id number] [place] [address] Nov, 2013 [facility] [address] [address] [id number] [place] [address] Nov, 2013 [facility] [address] [id number] [place] [address] Nov, 2013 [facility] [address] [id number] [place] [address] Nov, 2013 [facility] [address] [id number] [place] [address] Nov, 2013 [facility] [address] [id number] [place] [address] 17 Nov, 2013 [facility] [address] [id number] [place] [address] 17 Nov, 2013 [facility] [address] [id number] [place] [address] 15 Nov, 2013 [facility] [address] [id number] [place] [address] 15 Nov, 2013 [facility] [address] [id number] [place] [address] Nov, 2013 [facility] [address] [id number] [place] [address] Nov, [facility] [address] [id number] [place] [address] Nov, [facility] [address] [id number] [place] [address] Nov, [facility] [address] [id number] [place] [address] Oct, [facility] [address] [id number] [place] [address] Oct, [facility] [address] [id number] [place] [address] Oct, [facility] [address] [id number] [place] [address] Oct, [facility] [address] [id number] [place] [address] Oct, [facility] [address] [id number] [place] [address] Oct, [facility] [address] [id number] [place] [address] Oct, [facility] [address] [id number] [place] [address] Oct, [facility] [address] [id number] [place] [address] Sep, [facility] [address] [id number] [place] [address] Sep, [facility] [address] [id number] [facility] [place] [address] Sep, [facility] [address] [id number] [place] [address] Sep, [facility] [address] [id number] [facility] [place] [address] Sep, [facility] [address] [id number] [place] [address] Sep, [facility] [address] [id number] [place] [address] Aug, [facility] [address] [id number] [place] [address] Aug, [facility] [address] [id number] [place] [address] July, [facility] [address] [id number] [place] [address] July, [facility] [address] [id number] [place] [address] July, [facility] [address] [id number] [place] [address] July, [facility] [address] [id number] [place] [address] July, [facility] [address] [id number] [place] [address] July, [facility] [address] [id number] [place] [address] July, [facility] [address] [id number] [place] [address] July, [facility] [address] [id number] [place] [address] July, [facility] [address] [id number] [facility] [place] [address] July, [facility] [address] [id number] [facility] [place] [address] July, [facility] [address] [id number] [place] [address] July, [facility] [address] [id number] [place] [address] July, [facility] [address] [id number] [place] [address] July, [facility] [address] [id number] [place] [address] July, [facility] [address] [id number] [place] [address] July, [facility] [address] [id number] [place] [address] July, [facility] [address] [id number] [place] [address] July, [facility] [address] [id number] [place] [address] Jun, [facility] [address] [id number] [place] [address] Jun, [facility] [address] [id number] [place] [address] Jun, [facility] [address] [id number] [place] [address] Jun, [facility] [address] [id number] [place] [address] Jun, [facility] [address] [id number] [place] [address] Jun, [facility] [address] [id number] [place] [address] Jun, [facility] [address] [id number] [place] [address] Jun, [facility] [address] [id number] [place] [address] 10 Jun, 2013 [facility] [address] [id number] [place] [address] Jun, [facility] [address] [id number] [place] [address] Jun, [facility] [address] [id number] [place] [address] Jun, [facility] [address] [id number] [place] [address] May, [facility] [address] [id number] [place] [address] May, [facility] [address] [id number] [place] [address] May, [facility] [address] [id number] [place] [address] May, [facility] [address] [id number] [place] [address] May, [facility] [address] [id number] [place] [address] May, [facility] [address] [id number] [place] [address] May, [facility] [address] [id number] [place] [address] May, [facility] [address] [id number] [place] [address] May, [facility] [address] [id number] [place] [address] May, [facility] [address] [id number] [place] [address] Apr, [facility] [address] [id number] [place] [address] Apr, [facility] [address] [id number] [place] [address] Apr, [facility] [address] [id number] [place] [address] Apr, [facility] [address] [id number] [place] [address] Apr, [facility] [address] [id number] [place] [address] Apr, [facility] [address] [id number] [place] [address] Apr, [facility] [address] [id number] [place] [address] Apr, [facility] [address] [id number] [place] [address] Apr, [facility] [address] [id number] [place] [address] Apr, [facility] [address] [id number] [place] [address] Apr, [facility] [address] [id number] [place] [address] Apr, [facility] [address] [id number] [place] [address] Apr, [facility] [address] [id number] [place] [address] Apr, [facility] [address] [id number] [place] [address] Mar, [facility] [address] [id number] [place] [address] Mar, [facility] [address] [id number] [place] [address] Mar, [facility] [address] [id number] [place] [address] Mar, [facility] [address] [id number] [place] [address] Mar, [facility] [address] [id number] [place] [address] Mar, [facility] [address] [id number] [place] [address] Mar, [facility] [address] [id number] [place] [address] Mar, [facility] [address] [id number] [place] [address] Mar, [facility] [address] [id number] [place] [address] Mar, [facility] [address] [id number] [place] [address] Mar, [facility] [address] [id number] [place] [address] Mar, [facility] [address] [id number] [place] [address] Feb, [facility] [address] [id number] [place] [address] Feb, [facility] [address] [id number] [place] [address] Feb, [facility] [address] [id number] [place] [address] Feb, [facility] [address] [id number] [place] [address] Feb, [facility] [address] [id number] [place] [address] Feb, [facility] [address] [id number] [place] [address] Feb, [facility] [address] [id number] [place] [address] Feb, [facility] [address] [id number] [place] [address] 05 Feb, 2013 [facility] [address] [id number] [place] [address] Feb, [facility] [address] [id number] [place] [address] Feb, [facility] [address] [id number] [place] [address] Jan, [facility] [address] [id number] [place] [address] Jan, [facility] [address] [id number] [place] [address] Jan, [facility] [address] [id number] [place] [address] Jan, [facility] [address] [id number] [place] [address] Jan, [facility] [address] [id number] [place] [address] Jan, [facility] [address] [id number] [place] [address] Jan, [facility] [address] [id number] [place] [address] Dec, [facility] [address] [id number] [place] [address] 17 Dec, 2012 [facility] [address] [id number] [place] [address] Dec, [facility] [address] [id number] [place] [address] 10 Dec, 2012 [facility] [address] [id number] [place] [address] Dec, [facility] [address] [id number] [place] [address] 18 Nov, 2012 [facility] [address] [id number] [place] [address] Oct, [facility] [address] [id number] [place] [address] Oct, [facility] [address] [id number] [place] [address] Oct, [facility] [address] [id number] [place] [address] Oct, [facility] [address] [id number] [place] [address] Oct, [facility] [address] [id number] [place] [address] Sep, [facility] [address] [id number] [place] [address] Sep, [facility] [address] [id number] [place] [address] Sep, [facility] [address] [id number] [place] [address] Sep, [facility] [address] [id number] [place] [address] Aug, [facility] [address] [id number] [place] [address] Aug, [facility] [address] [id number] [place] [address] Aug, [facility] [address] [id number] [place] [address] Aug, [facility] [address] [id number] [place] [address] Aug, [facility] [address] [id number] [place] [address] July, [facility] [address] [id number] [place] [address] July, [facility] [address] [id number] [place] [address] July, [facility] [address] [id number] [place] [address] July, [facility] [address] [id number] [place] [address] Jun, [facility] [address] [id number] [place] [address] Jun, [facility] [address] [id number] [place] [address] May, [facility] [address] [id number] [place] [address] May, [facility] [address] [id number] [place] [address] Apr, [facility] [address] [id number] [place] [address] Apr, [facility] [address] [id number] [place] [address] Mar, [facility] [address] [id number] [place] [address] Mar, [facility] [address] [id number] [place] [address] Feb, [facility] [address] [id number] [place] [address] Feb, [facility] [address] [id number] [place] [address] Feb, [facility] [address] [id number] [place] [address] Feb, [facility] [address] [id number] [place] [address] Feb, [facility] [address] [id number] [place] [address] Feb, [facility] [address] [id number] [place] [address] Jan, [facility] [address] [id number] [place] [address] Jan, [facility] [address] [id number] [place] [address] Jan, [facility] [address] [id number] [place] [address] Jan, [facility] [address] [id number] [place] [address] Dec, [facility] [address] [id number] [place] [address] Dec, [facility] [address] [id number] [place] [address] 18 Nov, 2011 [facility] [address] [id number] [place] [address] Nov, [facility] [address] [id number] [place] [address] Nov, [facility] [address] [id number] [place] [address] Oct, [facility] [address] [id number] [place] [address] Sep, [facility] [address] [id number] [place] [address] Aug, [facility] [address] [id number] [place] [address] July, [facility] [address] [id number] [place] [address] July, [facility] [address] [id number] [place] [address] July, [facility] [address] [id number] [place] [address] July, [facility] [address] [id number] [place] [address] July, [facility] [address] [id number] [place] [address] Jun, [facility] [address] [id number] [place] [address] May, [facility] [address] [id number] [place] [address] May, [facility] [address] [id number] [place] [address] 14 May, 2011 [facility] [address] [id number] [place] [address] 28 Apr, 2011 [facility] [address] [id number] [place] [address] 20 Apr, 2011 [facility] [address] [id number] [place] [address] 16 Mar, 2011 [facility] [address] [id number] [place] [address] 16 Feb, 2011 [facility] [address] [id number] [place] [address] 16 Feb, 2011 [facility] [address] [id number] [place] [address] 16 Feb, 2011 [facility] [address] [id number] [place] [address] 15 Feb, 2011 [facility] [address] [id number] [place] [address] 14 Feb, 2011 [facility] [address] [id number] [place] [address] 14 Feb, 2011 [facility] [address] [id number] [place] [address] 14 Feb, 2011 [facility] [address] [id number] [place] [address] 29 Jan, 2011 [facility] [address] [id number] [place] [address] 19 Jan, 2011 [facility] [address] [id number] [place] [address] 19 Jan, 2011 [facility] [id number] [place] [address] 15 Aug, 2010 [facility] [address] [id number] [place] [address] 30 Feb, 2010 [facility] [address] [id number] [place] [address] Feb, [facility] [address] [id number] [place] [address] Feb, [facility] [address] [id number] [place] [address] Dec, [facility] [address] [id number] [place] [address] Jun, [facility] [address] [id number] [place] [address] Dec, [facility] [address] [id number] [place] [address] Sep, IMMUNIZATIONS No Known Immunizations SOCIAL HISTORY Never Assessed REASON FOR VISIT PLAN OF CARE VITAL SIGNS MEDICATIONS Unknown Medications RESULTS No Results PROCEDURES Procedure Date Ordered Result Body Site PSYTX PT&/FAMILY 45 MINUTES Mar 27, 2013 INSTRUCTIONS MEDICATIONS ADMINISTERED No Known Medications [...] History Meniscus Repair Left Knee Hospitalization History [facility] Mental Breakdown 05/22 15 Hospitalization History Overdose VC 07/17/15 Hospitalization History Overdose 01/2018
[2019-07-15 19:53] VITALS: BP 112/66
[2019-07-15] MEDS: D5 LR IV SOLUTION 1,000 ML IV SCH (20:02)
--- OUTSIDE RECORDS SUMMARY | 2019-07-15 20:03 | XMS REPORT | Continuity of Care Document ---
Author Organization Unknown Address Unknown Phone Unavailable Allergies Active Description Code Type Severity Reaction Onset Reported/Identified Relationship to Patient Clinical Status Yes No Known Drug Allergies [id number] Drug Allergy Mild N/A 01/03/2009 Yes Vyvanse 30 mg capsule Drug Allergy N/A N/A 04/15/2014 Yes VYVANCE VYVANCE Mild N/A 07/17/2015 Yes aripiprazole [id number] Drug Allergy Mild N/A 06/09/2019 Medications There is no data. Problems Date Dx Coded Attending Type Code Diagnosis Diagnosed By 10/08/2007 788.41 URI NARY FREQUENCY 10/08/2007 788.41 URI NARY FREQUENCY 10/08/2007 JANNET DENT MD 788.41 Urinary Frequency 10/08/2007 MAXINE CLEARY APRN 788.41 Urinary Frequency 10/08/2007 788.41 Uri nary Frequency 10/08/2007 788.41 Uri nary Frequency 10/08/2007 788.41 Uri nary Frequency 10/08/2007 788.41 Uri nary Frequency 10/08/2007 788.41 Uri nary Frequency 10/08/2007 788.41 Uri nary Frequency 10/08/2007 788.41 Uri nary Frequency 10/08/2007 MAXINE CLEARY APRN 788.41 Urinary Frequency 10/08/2007 LORI MCKEON APRN 788.41 Urinary Frequency 10/08/2007 MAXINE CLEARY APRN 788.41 Urinary Frequency 10/08/2007 MARK QUINTANA DO 788.41 Urinary Frequency 10/08/2007 [facility] [place] Jackson 788.41 Urinary Frequency 10/08/2007 [facility] Ur[facility] Frequency 10/08/2007 MAXINE CLEARY APRN 788.41 Urinary Frequency 10/08/2007 RAJOTTE ENVIRONMENTAL SERVICES TECHNICIAN, CHARLIE A 788.41 Urinary Frequency 10/08/2007 [facility], [place] A 788.41 Urinary Frequency 10/08/2007 788.41 Uri nary Frequency 10/08/2007 LINDA ENVIRONMENTAL SERVICES TECHNICIAN, LORI A 788.41 Urinary Frequency 10/08/2007 [facility], [place] A 788.41 Urinary Frequency 10/08/2007 LINDA ENVIRONMENTAL SERVICES TECHNICIAN, LORI A 788.41 Urinary Frequency 10/08/2007 MARIANO MARK WOODY K 788.41 Urinary Frequency 10/08/2007 [facility], [place] A 788.41 Urinary Frequency 10/08/2007 LINDA ENVIRONMENTAL SERVICES TECHNICIAN, LORI A 788.41 Urinary Frequency 10/08/2007 [facility], [place] A 788.41 Urinary Frequency 10/08/2007 [facility], [place] A 788.41 Urinary Frequency 10/08/2007 JANNET DENT MD 788.41 Urinary Frequency 10/08/2007 MAXINE CLEARY APRN 788.41 Urinary Frequency 10/08/2007 JANNET DENT MD 788.41 Urinary Frequency 10/08/2007 [facility], [place] A 788.41 Urinary Frequency 10/08/2007 TRACIE RIVERA MD 788.4 1 Urinary Frequency 10/08/2007 [facility], [place] A 788.41 Urinary Frequency 10/08/2007 [facility], [place] A 788.41 Urinary Frequency 10/08/2007 HEVER BOUCHER APRN 788 .41 Urinary Frequency 10/08/2007 MAXINE CLEARY APRN 788.41 Urinary Frequency 10/08/2007 TOSHIA HOUSTON RN 788. 41 Urinary Frequency 10/08/2007 TOSHIA HOUSTON RN 788. 41 Urinary Frequency 10/08/2007 TOSHIA HOUSTON RN 788. 41 Urinary Frequency 10/08/2007 TOSHIA HOUSTON RN 788. 41 Urinary Frequency 10/08/2007 TOSHIA HOUSTON RN 788. 41 Urinary Frequency 10/08/2007 TOSHIA HOUSTON RN 788. 41 Urinary Frequency 10/08/2007 TOSHIA HOUSTON RN 788. 41 Urinary Frequency 10/08/2007 TOSHIA HOUSTON RN 788. 41 Urinary Frequency 10/08/2007 [place] RN, TOSHIA E 788. 41 Urinary Frequency 10/08/2007 [facility], [place] R 788.41 Urinary Frequency 10/08/2007 KINGS HUGHES, ZAN M 788.41 Urinary Frequency 10/08/2007 KINGS HUGHES, ZAN M 788.41 Urinary Frequency 10/08/2007 CELSO NASH, TOSHIA E 788. 41 Urinary Frequency 11/05/2007 784.7 EPIS TAXIS 11/05/2007 784.7 EPIS TAXIS 11/05/2007 JANNET DENT MD 784.7 Epistaxis 11/05/2007 CLEARY APRN, MAXINE GUZMANH 784.7 Epistaxis 11/05/2007 784.7 Epis taxis 11/05/2007 784.7 Epis taxis 11/05/2007 784.7 Epis taxis 11/05/2007 784.7 Epis taxis 11/05/2007 784.7 Epis taxis 11/05/2007 784.7 Epis taxis 11/05/2007 784.7 Epis taxis 11/05/2007 EVIN CARTWRIGHT MAXINE GUZMANH 784.7 Epistaxis 11/05/2007 LINDA ENVIRONMENTAL SERVICES TECHNICIAN, LORI A 78 4.7 Epistaxis 11/05/2007 EVIN CARTWRIGHT MAXINE GUZMANH 784.7 Epistaxis 11/05/2007 NATALI QUINTANA DOA K 784.7 Epistaxis 11/05/2007 [facility], [place] R 784.7 Epistaxis 11/05/2007 [facility], [place] A 78 4.7 Epistaxis 11/05/2007 EVIN CARTWRIGHT MAXINE DACIA 784.7 Epistaxis 11/05/2007 ALTAGRACIA CARTWRIGHT, CHARLIE A 784.7 Epistaxis 11/05/2007 [facility], [place] A 78 4.7 Epistaxis 11/05/2007 784.7 Epis taxis 11/05/2007 LINDA ENVIRONMENTAL SERVICES TECHNICIAN, LORI A 78 4.7 Epistaxis 11/05/2007 [facility], [place] A 78 4.7 Epistaxis 11/05/2007 LINDA ENVIRONMENTAL SERVICES TECHNICIAN, LORI A 78 4.7 Epistaxis 11/05/2007 QUINTANA DO MARK K 784.7 Epistaxis 11/05/2007 [facility], [place] A 78 4.7 Epistaxis 11/05/2007 LINDA ENVIRONMENTAL SERVICES TECHNICIAN, LORI A 78 4.7 Epistaxis 11/05/2007 [facility], [place] A 78 4.7 Epistaxis 11/05/2007 [facility], [place] A 78 4.7 Epistaxis 11/05/2007 JANNET DENT MD 784.7 Epistaxis 11/05/2007 EVIN CARTWRIGHT, MAXINE PEDERSON 784.7 Epistaxis 11/05/2007 JANNET DENT MD 784.7 Epistaxis 11/05/2007 [facility], [place] A 78 4.7 Epistaxis 11/05/2007 TRACIE RIVERA MD 784.7 Epistaxis 11/05/2007 [facility], [place] A 78 4.7 Epistaxis 11/05/2007 [facility], [place] A 78 4.7 Epistaxis 11/05/2007 HEVER BOUCHER APRN 784 .7 Epistaxis 11/05/2007 EVIN CARTWRIGHT, MAXINE PEDERSON 784.7 Epistaxis 11/05/2007 CELSO NASH, TOSHIA E 784. 7 Epistaxis 11/05/2007 CELSO NASH, TOSHIA E 784. 7 Epistaxis 11/05/2007 CELSO NASH, TOSHIA E 784. 7 Epistaxis 11/05/2007 CELSO NASH, TOSHIA E 784. 7 Epistaxis 11/05/2007 CELSO NASH, TOSHIA E 784. 7 Epistaxis 11/05/2007 CELSO RN, TOSHIA E 784. 7 Epistaxis 11/05/2007 CELSO NASH, TOSHIA E 784. 7 Epistaxis 11/05/2007 CELSO NASH, TOSHIA E 784. 7 Epistaxis 11/05/2007 CELSO NASH, TOSHIA E 784. 7 Epistaxis 11/05/2007 [facility], [place] R 784.7 Epistaxis 11/05/2007 ZAN AL M 784.7 Epistaxis 11/05/2007 ZAN AL M 784.7 Epistaxis 11/05/2007 CELSO NASH, TOSHIA E 784. 7 Epistaxis 06/01/2008 V20.2 Prev entive Medicine New Patient Evaluation Childhood 5-06/01/2008 V20.2 Prev entive Medicine New Patient Evaluation Childhood -06/01/2008 JANNET DENT MD V20.2 Preventive Medicine New Patient Evaluation Childhood 5-06/01/2008 MAXINE CLEARY APRN V20.2 Preventive Medicine New Patient Evaluation Childhood 06/01/2008 V20.2 Prev entive Medicine New Patient Evaluation Childhood 07-1206/01/2008 V20.2 Prev entive Medicine New Patient Evaluation Childhood 07-1206/01/2008 V20.2 Prev entive Medicine New Patient Evaluation Childhood 07-1206/01/2008 V20.2 Prev entive Medicine New Patient Evaluation Childhood 07-1206/01/2008 V20.2 Prev entive Medicine New Patient Evaluation Childhood 07-1206/01/2008 V20.2 Prev entive Medicine New Patient Evaluation Childhood 07-1206/01/2008 V20.2 Prev entive Medicine New Patient Evaluation Childhood 07-1206/01/2008 MAXINE CLEARY APRN V20.2 Preventive Medicine New Patient Evaluation Childhood 06/01/2008 LORI MCKEON APRN V2 0.2 Preventive Medicine New Patient Evaluation Childhood 07-1206/01/2008 MAXINE CLEARY APRN V20.2 Preventive Medicine New Patient Evaluation Childhood 06/01/2008 MARK QUINTANA DO V20.2 Preventive Medicine New Patient Evaluation Childhood 07-1206/01/[facility].2 Prevent[facility] Medicine New Patient Evaluation Childhood 06/01/2008 [facility] Prevent[facility] Medicine New Patient Evaluation Childhood 07-1206/01/2008 MAXINE CLEARY APRN V20.2 Preventive Medicine New Patient Evaluation Childhood 06/01/2008 CHARLIE FRIAS APRN V20.2 Preventive Medicine New Patient Evaluation Childhood 06/01/2008 [facility] V2 0.2 Preventive Medicine New Patient Evaluation Childhood 07-1206/01/2008 V20.2 Prev entive Medicine New Patient Evaluation Childhood 07-1206/01/2008 LORI MCKEON APRN V2 0.2 Preventive Medicine New Patient Evaluation Childhood 07-1206/01/2008 [facility].2 Preventive Medicine New Patient Evaluation Childhood 07-1206/01/2008 LORI MCKEON APRN V2 0.2 Preventive Medicine New Patient Evaluation Childhood 07-1206/01/2008 MARK QUINTANA DO V20.2 Preventive Medicine New Patient Evaluation Childhood 07-1206/01/2008 [facility], [place] A V2 0.2 Preventive Medicine New Patient Evaluation Childhood 07-1206/01/2008 LORI MCKEON APRN V2 0.2 Preventive Medicine New Patient Evaluation Childhood 07-1206/01/2008 [facility], [place] A V2 0.2 Preventive Medicine New Patient Evaluation Childhood 07-1206/01/2008 [facility], [place] A V2 0.2 Preventive Medicine New Patient Evaluation Childhood 07-1206/01/2008 JANNET DENT MD V20.2 Preventive Medicine New Patient Evaluation Childhood 07-1206/01/2008 MAXINE CLEARY APRN V20.2 Preventive Medicine New Patient Evaluation Childhood 06/01/2008 JANNET DENT MD V20.2 Preventive Medicine New Patient Evaluation Childhood 07-1206/01/2008 [facility], [place] A V2 0.2 Preventive Medicine New Patient Evaluation Childhood 07-1206/01/2008 TRACIE RIVERA MD V20.2 Preventive Medicine New Patient Evaluation Childhood 07-1206/01/2008 [facility], [place] A V2 0.2 Preventive Medicine New Patient Evaluation Childhood 07-1206/01/2008 [facility], [place] A V2 0.2 Preventive Medicine New Patient Evaluation Childhood 07-1206/01/2008 HEVER BOUCHER APRN V20 .2 Preventive Medicine New Patient Evaluation Childhood 07-1206/01/2008 MAXINE CLEARY APRN V20.2 Preventive Medicine New Patient Evaluation Childhood 06/01/2008 TOSHIA HOUSTON RN V20. 2 Preventive Medicine New Patient Evaluation Childhood 07-1206/01/2008 TOSHIA HOUSTON RN V20. 2 Preventive Medicine New Patient Evaluation Childhood 07-1206/01/2008 TOSHIA HOUSTON RN V20. 2 Preventive Medicine New Patient Evaluation Childhood 07-1206/01/2008 TOSHIA HOUSTON RN V20. 2 Preventive Medicine New Patient Evaluation Childhood 07-1206/01/2008 TOSHIA HOUSTON RN V20. 2 Preventive Medicine New Patient Evaluation Childhood 07-1206/01/2008 TOSHIA HOUSTON RN V20. 2 Preventive Medicine New Patient Evaluation Childhood 07-1206/01/2008 TOSHIA HOUSTON RN V20. 2 Preventive Medicine New Patient Evaluation Childhood -06/01/2008 TOSHIA HOUSTON RN V20. 2 Preventive Medicine New Patient Evaluation Childhood -06/01/2008 TOSHIA HOUSTON RN V20. 2 Preventive Medicine New Patient Evaluation Childhood -06/01/2008 [facility], [place] R V20.2 Preventive Medicine New Patient Evaluation Childhood -06/01/2008 ZAN AL V20.2 Preventive Medicine New Patient Evaluation Childhood -06/01/2008 ZAN AL V20.2 Preventive Medicine New Patient Evaluation Childhood -06/01/2008 TOSHIA HOUSTON RN V20. 2 Preventive Medicine New Patient Evaluation Childhood -07/29/2008 V25.49 ANASTASIA VEILLANCE OF OTHER CONTRACEPTIVE METHOD 07/29/2008 V25.49 ANASTASIA VEILLANCE OF OTHER CONTRACEPTIVE METHOD 07/29/2008 JANNET DENT MD V25.49 Surveillance Of Other Contraceptive Method 07/29/2008 AMXINE CLEARY APRN V25.49 Surveillance Of Other Contraceptive Method 07/29/2008 V25.49 Anastasia veillance Of Other Contraceptive Method 07/29/2008 V25.49 Anastasia veillance Of Other Contraceptive Method 07/29/2008 V25.49 Anastasia veillance Of Other Contraceptive Method 07/29/2008 V25.49 Anastasia veillance Of Other Contraceptive Method 07/29/2008 V25.49 Anastasia veillance Of Other Contraceptive Method 07/29/2008 V25.49 Anastasia veillance Of Other Contraceptive Method 07/29/2008 V25.49 Anastasia veillance Of Other Contraceptive Method 07/29/2008 MAXINE CLEARY APRN V25.49 Surveillance Of Other Contraceptive Method 07/29/2008 LORI MCKEON APRN V25.49 Surveillance Of Other Contraceptive Method 07/29/2008 MAXINE CLEARY APRN V25.49 Surveillance Of Other Contraceptive Method 07/29/2008 MARK QUINTANA DO V25.49 Surveillance Of Other Contraceptive Method 07/29/2008 [facility] [place] R V25.49 Surveillance Of Other Contraceptive Method 07/29/2008 [facility] V25.[facility] Surveillance Of Other Contraceptive Method 07/29/2008 MAXINE CLEARY APRN V25.49 Surveillance Of Other Contraceptive Method 07/29/2008 CHARLIE FRIAS APRN V25.49 Surveillance Of Other Contraceptive Method 07/29/2008 [facility] [place] Junior V25.49 Surveillance Of Other Contraceptive Method 07/29/2008 V25.49 Anastasia veillance Of Other Contraceptive Method 07/29/2008 LINDALORI Wood APRN A V25.49 Surveillance Of Other Contraceptive Method 07/29/2008 [facility], [place] Junior V25.49 Surveillance Of Other Contraceptive Method 07/29/2008 LINDA ENVIRONMENTAL SERVICES TECHNICIANWOLFLORI A V25.49 Surveillance Of Other Contraceptive Method 07/29/2008 MARK QUINTANA DO V25.49 Surveillance Of Other Contraceptive Method 07/29/2008 [facility] [place] Junior V25.49 Surveillance Of Other Contraceptive Method 07/29/2008 LORI MCKEON APRN A V25.49 Surveillance Of Other Contraceptive Method 07/29/2008 [facility], [place] Junior V25.49 Surveillance Of Other Contraceptive Method 07/29/2008 [facility], [place] Junior V25.49 Surveillance Of Other Contraceptive Method 07/29/2008 JANNET DENT MD V25.49 Surveillance Of Other Contraceptive Method 07/29/2008 MAXINE CLEARY APRN V25.49 Surveillance Of Other Contraceptive Method 07/29/2008 JANNET DENT MD V25.49 Surveillance Of Other Contraceptive Method 07/29/2008 [facility], [place] Junior V25.49 Surveillance Of Other Contraceptive Method 07/29/2008 TRACIE RIVERA MD V25.4 9 Surveillance Of Other Contraceptive Method 07/29/2008 [facility] [place] Junior V25.49 Surveillance Of Other Contraceptive Method 07/29/2008 [facility] [place] Junior V25.49 Surveillance Of Other Contraceptive Method 07/29/2008 HEVER BOUCHER APRN V25 .49 Surveillance Of Other Contraceptive Method 07/29/2008 MAXINE CLEARY APRN V25.49 Surveillance Of Other Contraceptive Method 07/29/2008 TOSHIA HOUSTON RN V25. 49 Surveillance Of Other Contraceptive Method 07/29/2008 TOSHIA HOUSTON RN V25. 49 Surveillance Of Other Contraceptive Method 07/29/2008 TOSHIA HOUSTON RN V25. 49 Surveillance Of Other Contraceptive Method 07/29/2008 TOSHIA HOUSTON RN V25. 49 Surveillance Of Other Contraceptive Method 07/29/2008 TOSHIA HOUSTON RN V25. 49 Surveillance Of Other Contraceptive Method 07/29/2008 TOSHIA HOUSTON RN V25. 49 Surveillance Of Other Contraceptive Method 07/29/2008 TOSHIA HOUSTON RN V25. 49 Surveillance Of Other Contraceptive Method 07/29/2008 TOSHIA HOUSTON RN V25. 49 Surveillance Of Other Contraceptive Method 07/29/2008 TOSHIA HOUSTON RN V25. 49 Surveillance Of Other Contraceptive Method 07/29/2008 [facility], [place] R V25.49 Surveillance Of Other Contraceptive Method 07/29/2008 ZAN AL V25.49 Surveillance Of Other Contraceptive Method 07/29/2008 ZAN AL V25.49 Surveillance Of Other Contraceptive Method 07/29/2008 TOSHIA HOUSTON RN V25. 49 Surveillance Of Other Contraceptive Method 12/10/2008 V05.3 HEPA TITIS VIRAL/ALL 12/10/2008 V05.8 GARDASIL 12/10/2008 V05.3 HEPA TITIS VIRAL/ALL 12/10/2008 V05.8 GARDASIL 12/10/2008 JANNET DNET MD V05.3 Hepatitis Viral/all 12/10/2008 JANNET DENT MD V05.8 Gardasil 12/10/2008 MAXINE CLEARY APRN V05.3 Hepatitis Viral/all 12/10/2008 MAXINE CLEARY APRN V05.8 Gardasil 12/10/2008 V05.3 Hepa titis Viral/all 12/10/2008 V05.8 Gardasil 12/10/2008 V05.3 Hepa titis Viral/all 12/10/2008 V05.8 Gardasil 12/10/2008 V05.3 Hepa titis Viral/all 12/10/2008 V05.8 Gardasil 12/10/2008 V05.3 Hepa titis Viral/all 12/10/2008 V05.8 Gardasil 12/10/2008 V05.3 Hepa titis Viral/all 12/10/2008 V05.8 Gardasil 12/10/2008 V05.3 Hepa titis Viral/all 12/10/2008 V05.8 Gardasil 12/10/2008 V05.3 Hepa titis Viral/all 12/10/2008 V05.8 Gardasil 12/10/2008 CLEARY ENVIRONMENTAL SERVICES TECHNICIAN, MAXINE PEDERSON V05.3 Hepatitis Viral/all 12/10/2008 CLEARY ENVIRONMENTAL SERVICES TECHNICIAN, MAXINE PEDERSON V05.8 Gardasil 12/10/2008 LINDA ENVIRONMENTAL SERVICES TECHNICIAN, LORI A V0 5.3 Hepatitis Viral/all 12/10/2008 LINDA ENVIRONMENTAL SERVICES TECHNICIAN, LORI A V0 5.8 Gardasil 12/10/2008 CLEARY ENVIRONMENTAL SERVICES TECHNICIAN, MAXINE PEDERSON V05.3 Hepatitis Viral/all 12/10/2008 CLEARY ENVIRONMENTAL SERVICES TECHNICIAN, MAXINE PEDERSON V05.8 Gardasil 12/10/2008 QUINTANA DO, MARK K V05.3 Hepatitis Viral/all 12/10/2008 QUINTANA DO, MARK K V05.8 Gardasil 12/10/2008 [facility], [place] R V05.3 Hepatitis Viral/all 12/10/2008 [facility], [place] R V05.8 Gardasil 12/10/2008 [facility], [place] A V0 5.3 Hepatitis Viral/all 12/10/2008 [facility], [place] A V0 5.8 Gardasil 12/10/2008 CLEARY ENVIRONMENTAL SERVICES TECHNICIAN, MAXINE PEDERSON V05.3 Hepatitis Viral/all 12/10/2008 CLEARY ENVIRONMENTAL SERVICES TECHNICIAN, MAXINE PEDERSON V05.8 Gardasil 12/10/2008 RAJOTTE ENVIRONMENTAL SERVICES TECHNICIAN, CHARLIE A V05.3 Hepatitis Viral/all 12/10/2008 RAJOTTE ENVIRONMENTAL SERVICES TECHNICIAN, CHARLIE A V05.8 Gardasil 12/10/2008 [facility], [place] A V0 5.3 Hepatitis Viral/all [facility]/10/[facility] V0 5.8 Gardasil 12/10/2008 V05.3 Hepa titis Viral/all 12/10/2008 V05.8 Gardasil 12/10/2008 LINDA ENVIRONMENTAL SERVICES TECHNICIAN, LORI A V0 5.3 Hepatitis Viral/all 12/10/2008 LINDA ENVIRONMENTAL SERVICES TECHNICIAN, LORI A V0 5.8 Gardasil 12/10/2008 [facility], [place] A V0 5.3 Hepatitis Viral/all 12/10/2008 [facility], [place] A V0 5.8 Gardasil 12/10/2008 LINDA ENVIRONMENTAL SERVICES TECHNICIAN, LORI A V0 5.3 Hepatitis Viral/all 12/10/2008 LINDA ENVIRONMENTAL SERVICES TECHNICIAN, LORI A V0 5.8 Gardasil 12/10/2008 QUINTANA DO, MARK K V05.3 Hepatitis Viral/all 12/10/2008 QUINTANA DO, MARK K V05.8 Gardasil 12/10/2008 [facility], [place] A V0 5.3 Hepatitis Viral/all 12/10/2008 [facility], [place] A V0 5.8 Gardasil 12/10/2008 LINDA ENVIRONMENTAL SERVICES TECHNICIAN, LORI A V0 5.3 Hepatitis Viral/all 12/10/2008 LINDA ENVIRONMENTAL SERVICES TECHNICIAN, LORI A V0 5.8 Gardasil 12/10/2008 [facility], [place] A V0 5.3 Hepatitis Viral/all 12/10/2008 [facility], [place] A V0 5.8 Gardasil 12/10/2008 [facility], [place] A V0 5.3 Hepatitis Viral/all 12/10/2008 [facility], [place] A V0 5.8 Gardasil 12/10/2008 FILIPE LAGUNAS, JANNET V05.3 Hepatitis Viral/all 12/10/2008 FILIPE LAGUNAS, JANNET V05.8 Gardasil 12/10/2008 EVIN CARTWRIGHT, MAXINE DACIA V05.3 Hepatitis Viral/all 12/10/2008 CLEARY APRN, MAXINE PEDERSON V05.8 Gardasil 12/10/2008 FILIPE LAGUNAS, JANNET V05.3 Hepatitis Viral/all 12/10/2008 FILIPE LAGUNAS, JANNET V05.8 Gardasil 12/10/2008 [facility], [place] A V0 5.3 Hepatitis Viral/all 12/10/2008 [facility] V0 5.8 Gardasil 12/10/2008 MIGUEL LAGUNAS, TRACIE V05.3 Hepatitis Viral/all 12/10/2008 MIGUEL LAGUNAS, TRACIE V05.8 Gardasil 12/10/2008 [facility], [place] A V0 5.3 Hepatitis Viral/all 12/10/2008 [facility], [place] A V0 5.8 Gardasil 12/10/2008 [facility], [place] A V0 5.3 Hepatitis Viral/all 12/10/2008 [facility] [place] Junior V0 5.8 Gardasil 12/10/2008 CITLALY ENVIRONMENTAL SERVICES TECHNICIAN, HEVER V05 .3 Hepatitis Viral/all 12/10/2008 CITLALY ENVIRONMENTAL SERVICES TECHNICIAN, HEVER V05 .8 Gardasil 12/10/2008 CLEARY ENVIRONMENTAL SERVICES TECHNICIAN, MAXINE PEDERSON V05.3 Hepatitis Viral/all 12/10/2008 CLEARY ENVIRONMENTAL SERVICES TECHNICIAN, MAXINE PEDERSON V05.8 Gardasil 12/10/2008 CELSO RN, TOSHIA E V05. 3 Hepatitis Viral/all 12/10/2008 [place] RN, TOSHIA E V05. 8 Gardasil 12/10/2008 [place] RN, TOSHIA E V05. 3 Hepatitis Viral/all 12/10/2008 CELSO RN, TOSHIA E V05. 8 Gardasil 12/10/2008 CELSO RN, TOSHIA E V05. 3 Hepatitis Viral/all 12/10/2008 CELSO RN, TOSHIA E V05. 8 Gardasil 12/10/2008 CELSO RN, TOSHIA E V05. 3 Hepatitis Viral/all 12/10/2008 CELSO RN, TOSHIA E V05. 8 Gardasil 12/10/2008 CELSO RN, TOSHIA E V05. 3 Hepatitis Viral/all 12/10/2008 CELSO RN, TOSHIA E V05. 8 Gardasil 12/10/2008 [place] RN, TOSHIA E V05. 3 Hepatitis Viral/all 12/10/2008 [place] RN, TOSHIA E V05. 8 Gardasil 12/10/2008 CELSO RN, TOSHIA E V05. 3 Hepatitis Viral/all 12/10/2008 CELSO RN, TOSHIA E V05. 8 Gardasil 12/10/2008 CELSO RN, TOSHIA E V05. 3 Hepatitis Viral/all 12/10/2008 CELSO RN, TOSHIA E V05. 8 Gardasil 12/10/2008 CELSO RN, TOSHIA E V05. 3 Hepatitis Viral/all 12/10/2008 CELSO RN, TOSHIA E V05. 8 Gardasil 12/10/2008 [facility], [place] R V05.3 Hepatitis Viral/all 12/10/2008 [facility], [place] R V05.8 Gardasil 12/10/2008 KINGS HUGHES, ZAN M V05.3 Hepatitis Viral/all 12/10/2008 ZAN AL V05.8 Gardasil 12/10/2008 KINGS HUGHES, ZAN M V05.3 Hepatitis Viral/all 12/10/2008 KINGS HUGHES, ZAN M V05.8 Gardasil 12/10/2008 CELSO NASH, TOSHIA Moore V05. 3 Hepatitis Viral/all 12/10/2008 CELSO NASH, TOSHIA Moore V05. 8 Gardasil 12/27/2008 564.00 CON STIPATION CHRONIC 12/27/2008 783.21 ABN ORMAL WEIGHT LOSS 12/27/2008 787.02 nausea 12/27/2008 564.00 CON STIPATION CHRONIC 12/27/2008 783.21 ABN ORMAL WEIGHT LOSS 12/27/2008 787.02 nausea 12/27/2008 JANNET DENT MD 564.00 CONSTIPATION CHRONIC 12/27/2008 FILIPE LAGUNAS, JANNET 783.21 Abnormal Weight Loss 12/27/2008 FILIPE LAGUNAS, JANNET 787.02 Nausea 12/27/2008 EVIN CARTWRIGHT MAXINE DACIA 564.00 CONSTIPATION CHRONIC 12/27/2008 EVIN CARTWRIGHT [facility] 783.21 Abnormal Weight Loss 12/27/2008 EVIN CARTWRIGHT MAXINE DACIA 787.02 Nausea 12/27/2008 564.00 CON STIPATION CHRONIC 12/27/2008 783.21 Abn ormal Weight Loss 12/27/2008 787.02 Nausea 12/27/2008 564.00 CON STIPATION CHRONIC 12/27/2008 783.21 Abn ormal Weight Loss 12/27/2008 787.02 Nausea 12/27/2008 564.00 CON STIPATION CHRONIC 12/27/2008 783.21 Abn ormal Weight Loss 12/27/2008 787.02 Nausea 12/27/2008 564.00 CON STIPATION CHRONIC 12/27/2008 783.21 Abn ormal Weight Loss 12/27/2008 787.02 Nausea 12/27/2008 564.00 CON STIPATION CHRONIC 12/27/2008 783.21 Abn ormal Weight Loss 12/27/2008 787.02 Nausea 12/27/2008 564.00 CON STIPATION CHRONIC 12/27/2008 783.21 Abn ormal Weight Loss 12/27/2008 787.02 Nausea 12/27/2008 564.00 CON STIPATION CHRONIC 12/27/2008 783.21 Abn ormal Weight Loss 12/27/2008 787.02 Nausea 12/27/2008 [employer]NICIAN, MAXINE GUZMANH 564.00 CONSTIPATION CHRONIC 12/27/2008 [place] MAXINE GUZMANH 783.21 Abnormal Weight Loss 12/27/2008 [place] MAXINE GUZMANH 787.02 Nausea 12/27/2008 LINDA[place] CARTWRIGHT LORI A 564.00 CONSTIPATION CHRONIC 12/27/2008 LINDA[place] CARTWRIGHT LORI A 783.21 Abnormal Weight Loss 12/27/2008 LINDA APRN, LORI A 787.02 Nausea 12/27/2008 CLEARYJOSE [employer] MAXINE GUZMANH 564.00 CONSTIPATION CHRONIC 12/27/2008 EVIN [place] MAXINE GUZMANH 783.21 Abnormal Weight Loss 12/27/2008 CLEARYJOSE C[employer]WRIGHT MAXINE GUZMANH 787.02 Nausea 12/27/2008 QUINTANA DONATALIA K 564.00 CONSTIPATION CHRONIC 12/27/2008 QUINTANA DO MARK K 783.21 Abnormal Weight Loss 12/27/2008 QUINTANA DO MARK K 787.02 Nausea 12/27/2008 SELWYN LSCS, GWENDOLYN R 564.00 CONSTIPATION CHRONIC 12/27/2008 SELWYN LSCS, GWENDOLYN R 783.21 Abnormal Weight Loss 12/27/2008 SELWYN LSCS, GWENDOLYN R 787.02 Nausea 12/27/2008 [facility] 564.00 CONSTIPATION CHRONIC 12/27/2008 LEWIS CS, GLEN A 783.21 Abnormal Weight Loss 12/27/2008 LEWIS LSCS, GLEN A 787.02 Nausea 12/27/2008 EVIN CARTWRIGHT MAXINE GUZMANH 564.00 CONSTIPATION CHRONIC 12/27/2008 CLEARY APRN, MAXINE DACIA 783.21 Abnormal Weight Loss 12/27/2008 EVIN CARTWRIGHT MAXINE DACIA 787.02 Nausea 12/27/2008 RAJMATTHEWE CHAY CHARLIE A 564.00 CONSTIPATION CHRONIC 12/27/2008 RAJMATTHEWE CHAY CHARLIE A 783.21 Abnormal Weight Loss 12/27/2008 RAJMATTHEWE CHAY CHARLIE A 787.02 Nausea 12/27/2008 LEWIS LSCS, GLEN A 564.00 CONSTIPATION CHRONIC 12/27/2008 LEWIS LSCS, GLNE A 783.21 Abnormal Weight Loss 12/27/2008 LEWIS LSCS, GLEN A 787.02 Nausea 12/27/2008 564.00 CON STIPATION CHRONIC 12/27/2008 783.21 Abn ormal Weight Loss 12/27/2008 787.02 Nausea 12/27/2008 LINDA ENVIRONMENTAL SERVICES TECHNICIAN, LORI A 564.00 CONSTIPATION CHRONIC 12/27/2008 LINDA ENVIRONMENTAL SERVICES TECHNICIAN, LORI A 783.21 Abnormal Weight Loss 12/27/2008 LINDA ENVIRONMENTAL SERVICES TECHNICIAN, LORI A 787.02 Nausea 12/27/2008 LEWIS LSCS, GLEN A 564.00 CONSTIPATION CHRONIC 12/27/2008 LEWIS LSCS, GLEN A 783.21 Abnormal Weight Loss 12/27/2008 LEWIS LSCS, GLEN A 787.02 Nausea 12/27/2008 LINDA ENVIRONMENTAL SERVICES TECHNICIAN, LORI A 564.00 CONSTIPATION CHRONIC 12/27/2008 LINDA ENVIRONMENTAL SERVICES TECHNICIAN, LORI A 783.21 Abnormal Weight Loss 12/27/2008 LINDA ENVIRONMENTAL SERVICES TECHNICIAN, LORI A 787.02 Nausea 12/27/2008 QUINTANA DO, MARK K 564.00 CONSTIPATION CHRONIC 12/27/2008 QU[place]NA DO, MARK K 783.21 Abnormal Weight Loss 12/27/2008 QUINTANA DO, MARK K 787.02 Nausea 12/27/2008 LEWIS LSCS, GLEN A 564.00 CONSTIPATION CHRONIC 12/27/2008 LEWIS LSCS, GLEN A 783.21 Abnormal Weight Loss 12/27/2008 LEWIS LSCS, GLEN A 787.02 Nausea 12/27/2008 LINDA ENVIRONMENTAL SERVICES TECHNICIAN, LORI A 564.00 CONSTIPATION CHRONIC 12/27/2008 LINDA ENVIRONMENTAL SERVICES TECHNICIAN, LORI A 783.21 Abnormal Weight Loss 12/27/2008 LINDA ENVIRONMENTAL SERVICES TECHNICIAN, LORI A 787.02 Nausea 12/27/2008 LEWIS LSCS, GLEN A 564.00 CONSTIPATION CHRONIC 12/27/2008 LEWIS LSCS, GLEN A 783.21 Abnormal Weight Loss 12/27/2008 LEWIS LSCS, GLEN A 787.02 Nausea 12/27/2008 LEWIS LSCS, GLEN A 564.00 CONSTIPATION CHRONIC 12/27/2008 LEWIS LSCS, GLEN A 783.21 Abnormal Weight Loss 12/27/2008 [facility], GLEN A 787.02 Nausea 12/27/2008 FILIPE LAGUNAS, JANNET 564.00 CONSTIPATION CHRONIC 12/27/2008 FILIPE LAGUNAS, JANNET 783.21 Abnormal Weight Loss 12/27/2008 FILIPE LAGUNAS, JANNET 787.02 Nausea 12/27/2008 MAXINE CLEARY APRN 564.00 CONSTIPATION CHRONIC 12/27/2008 MAXINE CLEARY APRN 783.21 Abnormal Weight Loss 12/27/2008 MAXINE CLEARY APRN 787.02 Nausea 12/27/2008 FILIPE LAGUNAS, JANNET 564.00 CONSTIPATION CHRONIC 12/27/2008 FILIPE LAGUNAS, JANNET 783.21 Abnormal Weight Loss 12/27/2008 FILIPE LAGUNAS, JANNET 787.02 Nausea 12/27/2008 [facility], GLEN A 564.00 CONSTIPATION CHRONIC 12/27/2008 [facility], GLEN A 783.21 Abnormal Weight Loss 12/27/2008 [facility], GLEN A 787.02 Nausea 12/27/2008 TRACIE RIVERA MD 564.0 0 CONSTIPATION CHRONIC 12/27/2008 TRACIE RIVERA MD 783.2 1 Abnormal Weight Loss 12/27/2008 TRACIE RIVERA MD 787.0 2 Nausea 12/27/2008 [facility], GLEN A 564.00 CONSTIPATION CHRONIC 12/27/2008 [facility], GLEN A 783.21 Abnormal Weight Loss 12/27/2008 [facility], GLEN A 787.02 Nausea 12/27/2008 [facility], GLEN A 564.00 CONSTIPATION CHRONIC 12/27/2008 [facility], GLEN A 783.21 Abnormal Weight Loss 12/27/2008 [facility], GLEN A 787.02 Nausea 12/27/2008 CITLALY SUNIL CARTWRIGHTETTE 564 .00 CONSTIPATION CHRONIC 12/27/2008 CITLALY ENVIRONMENTAL SERVICES TECHNICIANSUNIL WoodHEVER 783 .21 Abnormal Weight Loss 12/27/2008 CITLALY ENVIRONMENTAL SERVICES TECHNICIAN, HEVER 787 .02 Nausea 12/27/2008 MAXINE CLEARY APRN 564.00 CONSTIPATION CHRONIC 12/27/2008 MAXINE CLEARY APRN 783.21 Abnormal Weight Loss 12/27/2008 MAXINE CLEARY APRN 787.02 Nausea 12/27/2008 CELSO NASH, TOSHIA E 564. 00 CONSTIPATION CHRONIC 12/27/2008 CELSO NASH, TOSHIA E 783. 21 Abnormal Weight Loss 12/27/2008 CELSO NASH, TOSHIA E 787. 02 Nausea 12/27/2008 CELSO NASH, TOSHIA E 564. 00 CONSTIPATION CHRONIC 12/27/2008 TOSHIA HOUSTON RN E 783. 21 Abnormal Weight Loss 12/27/2008 CELSO NASH, TOSHIA E 787. 02 Nausea 12/27/2008 CELSO NASH, TOSHIA E 564. 00 CONSTIPATION CHRONIC 12/27/2008 CELSO NASH, TOSHIA E 783. 21 Abnormal Weight Loss 12/27/2008 TOSHIA HOUSTON RN E 787. 02 Nausea 12/27/2008 CELSO NASH, TOSHIA E 564. 00 CONSTIPATION CHRONIC 12/27/2008 PRESTON HOUSTON RNISTA E 783. 21 Abnormal Weight Loss 12/27/2008 TOSHIA HOUSTON RN E 787. 02 Nausea 12/27/2008 PRESTON HOUSTON RNISTA E 564. 00 CONSTIPATION CHRONIC 12/27/2008 CELSO NASH, TOSHIA E 783. 21 Abnormal Weight Loss 12/27/2008 CELSO NASH, TOSHIA E 787. 02 Nausea 12/27/2008 CELSO NASH, TOSHIA E 564. 00 CONSTIPATION CHRONIC 12/27/2008 CELSO NASH, TOSHIA E 783. 21 Abnormal Weight Loss 12/27/2008 CELSO NASH, TOSHIA E 787. 02 Nausea 12/27/2008 PRESTON HOUSTON RNISTA E 564. 00 CONSTIPATION CHRONIC 12/27/2008 PRESTON HOUSTON RNISTA E 783. 21 Abnormal Weight Loss 12/27/2008 CELSO NASH, TOSHIA E 787. 02 Nausea 12/27/2008 PRESTON HOU[place]ON RNISTA E 564. 00 CONSTIPATION CHRONIC 12/27/2008 PRESTON HOU[place]ON RNISTA E 783. 21 Abnormal Weight Loss 12/27/2008 PRESTON HOU[place]ON RNISTA E 787. 02 Nausea 12/27/2008 PRESTON HOU[place]ON RNISTA E 564. 00 CONSTIPATION CHRONIC 12/27/2008 PRESTON HOUSTON RNISTA E 783. 21 Abnormal Weight Loss 12/27/2008 TOSHIA HOUSTON RN E 787. 02 Nausea 12/27/2008 [facility], GWENDOLYN Jackson 564.00 CONSTIPATION CHRONIC 12/27/2008 [facility], GWENDOLYN R 783.21 Abnormal Weight Loss 12/27/2008 [facility], GWENDOLYN R 787.02 Nausea 12/27/2008 KINGS WHOLESALER, ZAN M 564.00 CONSTIPATION CHRONIC 12/27/2008 KINGS WHOLESALER, ZAN M 783.21 Abnormal Weight Loss 12/27/2008 KINGS WHOLESALER, ZAN M 787.02 Nausea 12/27/2008 KINGS WHOLESALER, ZAN M 564.00 CONSTIPATION CHRONIC 12/27/2008 KINGS WHOLESALER, ZAN M 783.21 Abnormal Weight Loss 12/27/2008 KINGS WHOLESALER, ZAN M 787.02 Nausea 12/27/2008 CELSO NASH, TOSHIA E 564. 00 CONSTIPATION CHRONIC 12/27/2008 CELSO NASH, TOSHIA E 783. 21 Abnormal Weight Loss 12/27/2008 CELSO NASH, TOSHIA E 787. 02 Nausea 06/14/2009 477.9 SANTI RGIC RHINITIS 06/14/2009 477.9 SANTI RGIC RHINITIS 06/14/2009 JANNET DENT MD 477.9 ALLERGIC RHINITIS 06/14/2009 MAXINE CLEARY APRN 477.9 ALLERGIC RHINITIS 06/14/2009 477.9 SANTI RGIC RHINITIS 06/14/2009 477.9 SANTI RGIC RHINITIS 06/14/2009 477.9 SANTI RGIC RHINITIS 06/14/2009 477.9 SANTI RGIC RHINITIS 06/14/2009 477.9 SANTI RGIC RHINITIS 06/14/2009 477.9 SANTI RGIC RHINITIS 06/14/2009 477.9 SANTI RGIC RHINITIS 06/14/2009 MAXINE CLEARY APRN 477.9 ALLERGIC RHINITIS 06/14/2009 LORI MCKEON APRN 47 7.9 ALLERGIC RHINITIS 06/14/2009 MAXINE CLEARY APRN 477.9 ALLERGIC RHINITIS 06/14/2009 MARK QUINTANA DO 477.9 ALLERGIC RHINITIS 06/14/2009 [facility], GWENDOLYN R 477.9 ALLERGIC RHINITIS 06/14/2009 [facility] 47 7.9 ALLERGIC RHINITIS 06/14/2009 MAXINE CLEARY APRN 477.9 ALLERGIC RHINITIS 06/14/2009 CHARLIE FRIAS APRN 477.9 ALLERGIC RHINITIS 06/14/2009 [facility], GLEN A 47 7.9 ALLERGIC RHINITIS 06/14/2009 477.9 SANTI RGIC RHINITIS 06/14/2009 LINDA ENVIRONMENTAL SERVICES TECHNICIAN, LORI A 47 7.9 ALLERGIC RHINITIS 06/14/2009 [facility], GLEN A 47 7.9 ALLERGIC RHINITIS 06/14/2009 LINDA ENVIRONMENTAL SERVICES TECHNICIAN, LORI A 47 7.9 ALLERGIC RHINITIS 06/14/2009 MARIANO WOODYMARK K 477.9 ALLERGIC RHINITIS 06/14/2009 [facility], GLEN A 47 7.9 ALLERGIC RHINITIS 06/14/2009 LINDA ENVIRONMENTAL SERVICES TECHNICIAN, LORI A 47 7.9 ALLERGIC RHINITIS 06/14/2009 [facility], GLEN A 47 7.9 ALLERGIC RHINITIS 06/14/2009 [facility], GLEN A 47 7.9 ALLERGIC RHINITIS 06/14/2009 JANNET DENT MD 477.9 ALLERGIC RHINITIS 06/14/2009 MAXINE CLEARY APRN 477.9 ALLERGIC RHINITIS 06/14/2009 JANNET DENT MD 477.9 ALLERGIC RHINITIS 06/14/2009 [facility], GLEN A 47 7.9 ALLERGIC RHINITIS 06/14/2009 TRACIE RIVERA MD 477.9 ALLERGIC RHINITIS 06/14/2009 [facility], GLEN A 47 7.9 ALLERGIC RHINITIS 06/14/2009 [facility], GLEN A 47 7.9 ALLERGIC RHINITIS 06/14/2009 HEVER BOUCHER APRN 477 .9 ALLERGIC RHINITIS 06/14/2009 MAXINE CLEARY APRN 477.9 ALLERGIC RHINITIS 06/14/2009 CELSO RN, TOSHIA E 477. 9 ALLERGIC RHINITIS 06/14/2009 CELSO RN, TOSHIA E 477. 9 ALLERGIC RHINITIS 06/14/2009 CELSO RN, TOSHIA E 477. 9 ALLERGIC RHINITIS 06/14/2009 CELSO RN, TOSHIA E 477. 9 ALLERGIC RHINITIS 06/14/2009 CELSO RN, TOSHIA E 477. 9 ALLERGIC RHINITIS 06/14/2009 CELSO RN, TOSHIA E 477. 9 ALLERGIC RHINITIS 06/14/2009 CELSO RN, TOSHIA E 477. 9 ALLERGIC RHINITIS 06/14/2009 CELSO RN, TOSHIA E 477. 9 ALLERGIC RHINITIS 06/14/2009 CELSO RN, TOSHIA E 477. 9 ALLERGIC RHINITIS 06/14/2009 [facility], GWENDOLYN R 477.9 ALLERGIC RHINITIS 06/14/2009 KINGS WHOLESALER, ZAN M 477.9 ALLERGIC RHINITIS 06/14/2009 KINGS WHOLESALER, ZAN M 477.9 ALLERGIC RHINITIS 06/14/2009 CELSO NASH, TOSHIA Moore 477. 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 10/27/2009 JANNET DENT MD 919.4 Superficial Injury Of Other, Multiple, And Unspecified Sites, Insect Bite, Nonvenomous, Without Mention Of Infection 10/27/2009 JANNET DENT MD 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 10/27/2009 MAXINE CLEARY APRN 919.4 Superficial Injury Of Other, Multiple, A nd Unspecified Sites, Insect Bite, Nonvenomous, Without Mention Of Infection 10/27/2009 MAXINE CLEARY APRN 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 10/27/2009 919.4 Supe rficial Injury Of Other, Multiple, And Unspecified Sites, Insect Bite, Nonvenomous, Without Mention Of Infection 10/27/2009 E906.4 Bit e Of Nonvenomous Arthropod 10/27/2009 919.4 Supe rficial Injury Of Other, Multiple, And Unspecified Sites, Insect Bite, Nonvenomous, Without Mention Of Infection 10/27/2009 E906.4 Bit e Of Nonvenomous Arthropod 10/27/2009 919.4 Supe rficial Injury Of Other, Multiple, And Unspecified Sites, Insect Bite, Nonvenomous, Without Mention Of Infection 10/27/2009 E906.4 Bit e Of Nonvenomous Arthropod 10/27/2009 919.4 Supe rficial Injury Of Other, Multiple, And Unspecified Sites, Insect Bite, Nonvenomous, Without Mention Of Infection 10/27/2009 E906.4 Bit e Of Nonvenomous Arthropod 10/27/2009 919.4 Supe rficial Injury Of Other, Multiple, And Unspecified Sites, Insect Bite, Nonvenomous, Without Mention Of Infection 10/27/2009 E906.4 Bit e Of Nonvenomous Arthropod 10/27/2009 919.4 Supe rficial Injury Of Other, Multiple, And Unspecified Sites, Insect Bite, Nonvenomous, Without Mention Of Infection 10/27/2009 E906.4 Bit e Of Nonvenomous Arthropod 10/27/2009 919.4 Supe rficial Injury Of Other, Multiple, And Unspecified Sites, Insect Bite, Nonvenomous, Without Mention Of Infection 10/27/2009 E906.4 Bit e Of Nonvenomous Arthropod 10/27/2009 EVIN CARTWRIGHT MAXINE PEDERSON 919.4 Superficial Injury Of Other, Multiple, A nd Unspecified Sites, Insect Bite, Nonvenomous, Without Mention Of Infection 10/27/2009 EVIN CARTWRIGHT MAXINE GUZMANH 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 10/27/2009 LORI MCKEON APRN A 91 9.4 Superficial Injury Of Other, Multiple, And Unspecified Sites, Insect Bite, Nonvenomous, Without Mention Of Infection 10/27/2009 LORI MCKEON APRN A 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 10/27/2009 EVIN ENVIRONMENTAL SERVICES TECHNICIAN, MAXINE GUZMANH 919.4 Superficial Injury Of Other, Multiple, A nd Unspecified Sites, Insect Bite, Nonvenomous, Without Mention Of Infection 10/27/2009 EVIN CARTWRIGHT MAXINE GUZMANH 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 10/27/2009 MARK QUINTANA DO 919.4 Superficial Injury Of Other, Multiple, And Unspecified Sites, Insect Bite, Nonvenomous, Without Mention Of Infection 10/27/2009 MARK QUINTANA DO 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 10/27/2009 SELWYN GWENDOLYN WYATT 919.4 Superficial Injury Of Other, Multiple, A nd Unspecified Sites, Insect Bite, Nonvenomous, Without Mention Of Infection 10/27/2009 GWENDOLYN DUVALL 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 10/27/2009 [facility] 91 9.4 Superficial Injury Of Other, Multiple, And Unspecified Sites, Insect Bite, Nonvenomous, Without Mention Of Infection 10/27/2009 [facility], GLEN A 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 10/27/2009 MAXINE CLEARY APRN 919.4 Superficial Injury Of Other, Multiple, A nd Unspecified Sites, Insect Bite, Nonvenomous, Without Mention Of Infection 10/27/2009 CLEARY ENVIRONMENTAL SERVICES TECHNICIANMAXINE 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 10/27/2009 CHARLIE FRIAS APRN A 919.4 Superficial Injury Of Other, Multiple, A nd Unspecified Sites, Insect Bite, Nonvenomous, Without Mention Of Infection 10/27/2009 ABELINO FRIAS APRNYL A 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 10/27/2009 [facility] 91 9.4 Superficial Injury Of Other, Multiple, And Unspecified Sites, Insect Bite, Nonvenomous, Without Mention Of Infection 10/27/2009 [facility] 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 10/27/2009 919.4 Supe rficial Injury Of Other, Multiple, And Unspecified Sites, Insect Bite, Nonvenomous, Without Mention Of Infection 10/27/2009 E906.4 Bit e Of Nonvenomous Arthropod 10/27/2009 LORI MCKEON APRN A 91 9.4 Superficial Injury Of Other, Multiple, And Unspecified Sites, Insect Bite, Nonvenomous, Without Mention Of Infection 10/27/2009 WOLF MCKEON APRNIDI A 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 10/27/2009 [facility] 91 9.4 Superficial Injury Of Other, Multiple, And Unspecified Sites, Insect Bite, Nonvenomous, Without Mention Of Infection 10/27/2009 [facility] 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 10/27/2009 LORI MCKEON APRN A 91 9.4 Superficial Injury Of Other, Multiple, And Unspecified Sites, Insect Bite, Nonvenomous, Without Mention Of Infection 10/27/2009 LINDA CARTWRIGHT, LORI A 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 10/27/2009 MARK QUINTANA DO K 919.4 Superficial Injury Of Other, Multiple, And Unspecified Sites, Insect Bite, Nonvenomous, Without Mention Of Infection 10/27/2009 QUINTANA MARK K 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 10/27/2009 LEWIS JANELLECSGLEN A 91 9.4 Superficial Injury Of Other, Multiple, And Unspecified Sites, Insect Bite, Nonvenomous, Without Mention Of Infection 10/27/2009 DEBBIE LUISCSGLEN A 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 10/27/2009 WOLF MCKEON APRNIDI A 91 9.4 Superficial Injury Of Other, Multiple, And Unspecified Sites, Insect Bite, Nonvenomous, Without Mention Of Infection 10/27/2009 WOLF MCKEON APRNIDI A 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 10/27/2009 LEWIS GLEN ZARATE A 91 9.4 Superficial Injury Of Other, Multiple, And Unspecified Sites, Insect Bite, Nonvenomous, Without Mention Of Infection 10/27/2009 GLEN TORRES A 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 10/27/2009 GLEN TORRES A 91 9.4 Superficial Injury Of Other, Multiple, And Unspecified Sites, Insect Bite, Nonvenomous, Without Mention Of Infection 10/27/2009 GLEN TORRES A 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 10/27/2009 JANNET DENT MD 919.4 Superficial Injury Of Other, Multiple, And Unspecified Sites, Insect Bite, Nonvenomous, Without Mention Of Infection 10/27/2009 JANNET DENT MD 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 10/27/2009 MAXINE CLEARY APRN 919.4 Superficial Injury Of Other, Multiple, A nd Unspecified Sites, Insect Bite, Nonvenomous, Without Mention Of Infection 10/27/2009 MAXINE CLEARY APRN 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 10/27/2009 JANNET DENT MD 919.4 Superficial Injury Of Other, Multiple, And Unspecified Sites, Insect Bite, Nonvenomous, Without Mention Of Infection 10/27/2009 JANNET DENT MD 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 10/27/2009 [facility] GLEN A 91 9.4 Superficial Injury Of Other, Multiple, And Unspecified Sites, Insect Bite, Nonvenomous, Without Mention Of Infection 10/27/2009 [facility] 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 10/27/2009 TRACIE RIVERA MD 919.4 Superficial Injury Of Other, Multiple, And Unspecified Sites, Insect Bite, Nonvenomous, Without Mention Of Infection 10/27/2009 TRACIE RIVERA MD E906. 4 Bite Of Nonvenomous Arthropod 10/27/2009 [facility] GLEN A 91 9.4 Superficial Injury Of Other, Multiple, And Unspecified Sites, Insect Bite, Nonvenomous, Without Mention Of Infection 10/27/2009 [facility] 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 10/27/2009 [facility], GLEN A 91 9.4 Superficial Injury Of Other, Multiple, And Unspecified Sites, Insect Bite, Nonvenomous, Without Mention Of Infection 10/27/2009 [facility] 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 10/27/2009 HEVER BOUCHER APRN 919 .4 Superficial Injury Of Other, Multiple, And Unspecified Sites, Insect Bite, Nonvenomous, Without Mention Of Infection 10/27/2009 HEVER BOUCHER APRN E90 6.4 Bite Of Nonvenomous Arthropod 10/27/2009 MAXINE CLEARY APRN 919.4 Superficial Injury Of Other, Multiple, A nd Unspecified Sites, Insect Bite, Nonvenomous, Without Mention Of Infection 10/27/2009 AMXINE CLEARY APRN 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 10/27/2009 TOSHIA HOUSTON RN 919. 4 Superficial Injury Of Other, Multiple, And Unspecified Sites, Insect Bite, Nonvenomous, Without Mention Of Infection 10/27/2009 TOSHIA HOUSTON RN E E906 .4 Bite Of Nonvenomous Arthropod 10/27/2009 TOSHIA HOUSTON RN E 919. 4 Superficial Injury Of Other, Multiple, And Unspecified Sites, Insect Bite, Nonvenomous, Without Mention Of Infection 10/27/2009 TOSHIA HOUSTON RN E E906 .4 Bite Of Nonvenomous Arthropod 10/27/2009 TOSHIA HOUSTON RN E 919. 4 Superficial Injury Of Other, Multiple, And Unspecified Sites, Insect Bite, Nonvenomous, Without Mention Of Infection 10/27/2009 TOSHIA HOUSTON RN E E906 .4 Bite Of Nonvenomous Arthropod 10/27/2009 TOSHIA HOUSTON RN E 919. 4 Superficial Injury Of Other, Multiple, And Unspecified Sites, Insect Bite, Nonvenomous, Without Mention Of Infection 10/27/2009 TOSHIA HOUSTON RN E E906 .4 Bite Of Nonvenomous Arthropod 10/27/2009 TOSHIA HOUSTON RN E 919. 4 Superficial Injury Of Other, Multiple, And Unspecified Sites, Insect Bite, Nonvenomous, Without Mention Of Infection 10/27/2009 TOSHIA HOUSTON RN E E906 .4 Bite Of Nonvenomous Arthropod 10/27/2009 TOSHIA HOUSTON RN E 919. 4 Superficial Injury Of Other, Multiple, And Unspecified Sites, Insect Bite, Nonvenomous, Without Mention Of Infection 10/27/2009 TOSHIA HOUSTON RN E E906 .4 Bite Of Nonvenomous Arthropod 10/27/2009 TOSHIA HOUSTON RN E 919. 4 Superficial Injury Of Other, Multiple, And Unspecified Sites, Insect Bite, Nonvenomous, Without Mention Of Infection 10/27/2009 TOSHIA HOUSTON RN E E906 .4 Bite Of Nonvenomous Arthropod 10/27/2009 TOSHIA HOUSTON RN E 919. 4 Superficial Injury Of Other, Multiple, And Unspecified Sites, Insect Bite, Nonvenomous, Without Mention Of Infection 10/27/2009 TOSHIA HOUSTON RN E E906 .4 Bite Of Nonvenomous Arthropod 10/27/2009 TOSHIA HOUSTON RN E 919. 4 Superficial Injury Of Other, Multiple, And Unspecified Sites, Insect Bite, Nonvenomous, Without Mention Of Infection 10/27/2009 TOSHIA HOUSTON RN E E906 .4 Bite Of Nonvenomous Arthropod 10/27/2009 [facility], GWENDOLYN R 919.4 Superficial Injury Of Other, Multiple, A nd Unspecified Sites, Insect Bite, Nonvenomous, Without Mention Of Infection 10/27/2009 [facility], GWENDOLYN R 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 10/27/2009 ZAN AL 919.4 Superficial Injury Of Other, Multiple, A nd Unspecified Sites, Insect Bite, Nonvenomous, Without Mention Of Infection 10/27/2009 ZAN AL 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 10/27/2009 ZAN AL 919.4 Superficial Injury Of Other, Multiple, A nd Unspecified Sites, Insect Bite, Nonvenomous, Without Mention Of Infection 10/27/2009 ZAN AL 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 10/27/2009 TOSHIA HOUSTON RN 919. 4 Superficial Injury Of Other, Multiple, And Unspecified Sites, Insect Bite, Nonvenomous, Without Mention Of Infection 10/27/2009 TOSHIA HOUSTON RN E E906 .4 Bite Of Nonvenomous Arthropod 12/29/2009 314.01 ADH D COMBINED 12/29/2009 314.01 ADH D COMBINED 12/29/2009 JANNET DENT MD 314.01 ADHD COMBINED 12/29/2009 EVIN CARTWRIGHT MAXINE DACIA 314.01 ADHD COMBINED 12/29/2009 314.01 ADH D COMBINED 12/29/2009 314.01 ADH D COMBINED 12/29/2009 314.01 ADH D COMBINED 12/29/2009 314.01 ADH D COMBINED 12/29/2009 314.01 ADH D COMBINED 12/29/2009 314.01 ADH D COMBINED 12/29/2009 314.01 ADH D COMBINED 12/29/2009 EVIN CARTWRIGHT MAXINE DACIA 314.01 ADHD COMBINED 12/29/2009 LORI MCKEON APRN 314.01 ADHD COMBINED 12/29/2009 EVIN CARTWRIGHT MAXINE DACIA 314.01 ADHD COMBINED 12/29/2009 MARK QUINTANA DO 314.01 ADHD COMBINED 12/29/2009 [facility], GWENDOLYN R 314.01 ADHD COMBINED 12/29/2009 [facility] 12/29/2009 EVIN CARTWRIGHT MAXINE GUZMANH 314.01 ADHD COMBINED 12/29/2009 ALTAGRACIA CARTWRIGHT, CHARLIE A 314.01 ADHD COMBINED 12/29/2009 [facility], GLEN A 314.01 ADHD COMBINED 12/29/2009 314.01 ADH D COMBINED 12/29/2009 [facility], LORI A 314.01 ADHD COMBINED 12/29/2009 [facility], GLEN A 314.01 ADHD COMBINED 12/29/2009 [facility] TECHNICIAN, LORI A 314.01 ADHD COMBINED 12/29/2009 QUINTANA DO, MARK K 314.01 ADHD COMBINED 12/29/2009 [facility], GLEN A 314.01 ADHD COMBINED 12/29/2009 [facility] TECHNICIAN, LORI A 314.01 ADHD COMBINED 12/29/2009 [facility], GLEN A 314.01 ADHD COMBINED 12/29/2009 [facility], GLEN A 314.01 ADHD COMBINED 12/29/2009 FILIPE LAGUNAS, JANNET 314.01 ADHD COMBINED 12/29/2009 EVIN CARTWRIGHT, MAXINE DACIA 314.01 ADHD COMBINED 12/29/2009 FILIPE LAGUNAS, JANNET 314.01 ADHD COMBINED 12/29/2009 [facility], GLEN A 314.01 ADHD COMBINED 12/29/2009 TRACIE RIVERA MD 314.0 1 ADHD COMBINED 12/29/2009 [facility], GLEN A 314.01 ADHD COMBINED 12/29/2009 [facility], GLEN A 314.01 ADHD COMBINED 12/29/2009 HEVER BOUCHER APRN 314 .01 ADHD COMBINED 12/29/2009 EVIN CARTWRIGHT MAXINE DACIA 314.01 ADHD COMBINED 12/29/2009 CELSO RN, TOSHIA E 314. 01 ADHD COMBINED 12/29/2009 CELSO RN, TOSHIA E 314. 01 ADHD COMBINED 12/29/2009 CELSO RN, TOSHIA E 314. 01 ADHD COMBINED 12/29/2009 CELSO RN, TOSHIA E 314. 01 ADHD COMBINED 12/29/2009 CELSO RN, TOSHIA E 314. 01 ADHD COMBINED 12/29/2009 CELSO RN, TOSHIA E 314. 01 ADHD COMBINED 12/29/2009 CELSO RN, TOSHIA E 314. 01 ADHD COMBINED 12/29/2009 CELSO NASH, TOSHIA E 314. 01 ADHD COMBINED 12/29/2009 CELSO RN, TOSHIA E 314. 01 ADHD COMBINED 12/29/2009 SELWYN FREMONT [facility] 314.01 ADHD COMBINED 12/29/2009 ZAN AL 314.01 ADHD COMBINED 12/29/2009 ZAN AL 314.01 ADHD COMBINED 12/29/2009 CELSO NASH, TOSHIA Moore 314. 01 ADHD COMBINED 02/18/2010 Ot 719.07 DYLAN NT EFFUSION- ANKLE 02/18/2010 Ot 824.8 FX A NKLE NOS- CLOSED 02/18/2010 Ot 959.7 LOWE R LEG INJURY NOS 02/18/2010 Ot E000.8 OTH ER EXTERNAL CAUSE STATUS 02/18/2010 Ot E006.0 ACT IVITIES INVOLVING ROLLER SKATING (INL 02/18/2010 Ot E849.6 ACC IDENT IN PUBLIC BLDG 02/18/2010 Ot E885.1 ACC IDENT DUE TO ROLLERSKATE 02/21/2010 382.00 IDALIA TIS MEDIA ACUTE SUPPURATIVE 02/21/2010 465.9 UPPE R RESPIRATORY INFECTION 02/21/2010 V04.81 FLU SHOT 02/21/2010 382.00 IDALIA TIS MEDIA ACUTE SUPPURATIVE 02/21/2010 465.9 UPPE R RESPIRATORY INFECTION 02/21/2010 V04.81 FLU SHOT 02/21/2010 JANNET DENT MD 382.00 Otitis Media Acute Suppurative 02/21/2010 JANNET DENT MD 465.9 Upper Respiratory Infection 02/21/2010 JANNET DENT MD V04.81 FLU SHOT 02/21/2010 MAXINE CLEARY APRN 382.00 Otitis Media Acute Suppurative 02/21/2010 MAXINE CLEARY APRN 465.9 Upper Respiratory Infection 02/21/2010 MAXINE CLEARY APRN V04.81 FLU SHOT 02/21/2010 382.00 Idalia tis Media Acute Suppurative 02/21/2010 465.9 Uppe r Respiratory Infection 02/21/2010 V04.81 FLU SHOT 02/21/2010 382.00 Idalia tis Media Acute Suppurative 02/21/2010 465.9 Uppe r Respiratory Infection 02/21/2010 V04.81 FLU SHOT 02/21/2010 382.00 Idalia tis Media Acute Suppurative 02/21/2010 465.9 Uppe r Respiratory Infection 02/21/2010 V04.81 FLU SHOT 02/21/2010 382.00 Idalia tis Media Acute Suppurative 02/21/2010 465.9 Uppe r Respiratory Infection 02/21/2010 V04.81 FLU SHOT 02/21/2010 382.00 Idalia tis Media Acute Suppurative 02/21/2010 465.9 Uppe r Respiratory Infection 02/21/2010 V04.81 FLU SHOT 02/21/2010 382.00 Idalia tis Media Acute Suppurative 02/21/2010 465.9 Uppe r Respiratory Infection 02/21/2010 V04.81 FLU SHOT 02/21/2010 382.00 Idalia tis Media Acute Suppurative 02/21/2010 465.9 Uppe r Respiratory Infection 02/21/2010 V04.81 FLU SHOT 02/21/2010 CLEARY ENVIRONMENTAL SERVICES TECHNICIANMAXINE 382.00 Otitis Media Acute Suppurative 02/21/2010 CLEARY ENVIRONMENTAL SERVICES TECHNICIAN, MAXINE PEDERSON 465.9 Upper Respiratory Infection 02/21/2010 EVIN ACOSTANMAXINE V04.81 FLU SHOT 02/21/2010 LINDA ENVIRONMENTAL SERVICES TECHNICIAN, LORI A 382.00 Otitis Media Acute Suppurative 02/21/2010 LINDA ENVIRONMENTAL SERVICES TECHNICIAN, LORI A 46 5.9 Upper Respiratory Infection 02/21/2010 LINDA ENVIRONMENTAL SERVICES TECHNICIAN, LORI A V04.81 FLU SHOT 02/21/2010 EVIN ACOSTANMAXINE 382.00 Otitis Media Acute Suppurative 02/21/2010 EVIN ACOSTANMAXINE 465.9 Upper Respiratory Infection 02/21/2010 EVIN ACOSTANMAXINE V04.81 FLU SHOT 02/21/2010 QUINTANA DO, MARK K 382.00 Otitis Media Acute Suppurative 02/21/2010 QUINTANA DO, MARK K 465.9 Upper Respiratory Infection 02/21/2010 QUINTANA DO, MARK K V04.81 FLU SHOT 02/21/2010 [facility], [place] [facility] 382.00 Otitis Media Acute Suppurative 02/21/2010 [facility], [place] [facility] 465.9 Upper Respiratory Infection 02/21/2010 [facility] [place] V04.81 FLU SHOT 02/21/2010 [facility] 382.00 Otitis Media Acute Suppurative 02/21/2010 [facility] 46 5.9 Upper Respiratory Infection 02/21/2010 [facility], [place] A V04.81 FLU SHOT 02/21/2010 CLEARY ENVIRONMENTAL SERVICES TECHNICIAN, MAXINE PEDERSON 382.00 Otitis Media Acute Suppurative 02/21/2010 CLEARY ENVIRONMENTAL SERVICES TECHNICIAN, MAXINE PEDERSON 465.9 Upper Respiratory Infection 02/21/2010 CLEARY ENVIRONMENTAL SERVICES TECHNICIAN, MAXINE PEDERSON V04.81 FLU SHOT 02/21/2010 RAJOTTE ENVIRONMENTAL SERVICES TECHNICIAN, CHARLIE A 382.00 Otitis Media Acute Suppurative 02/21/2010 RAJOTTE ENVIRONMENTAL SERVICES TECHNICIAN, CHARLIE A 465.9 Upper Respiratory Infection 02/21/2010 RAJOTTE ENVIRONMENTAL SERVICES TECHNICIAN, CHARLIE A V04.81 FLU SHOT 02/21/2010 [facility], [place] A 382.00 Otitis Media Acute Suppurative 02/21/2010 [facility], [place] A 46 5.9 Upper Respiratory Infection 02/21/2010 [facility], [place] A V04.81 FLU SHOT 02/21/2010 382.00 Idalia tis Media Acute Suppurative 02/21/2010 465.9 Uppe r Respiratory Infection 02/21/2010 V04.81 FLU SHOT 02/21/2010 LINDA ENVIRONMENTAL SERVICES TECHNICIAN, LORI A 382.00 Otitis Media Acute Suppurative 02/21/2010 LINDA ENVIRONMENTAL SERVICES TECHNICIAN, LORI A 46 5.9 Upper Respiratory Infection 02/21/2010 LINDA ENVIRONMENTAL SERVICES TECHNICIAN, LORI A V04.81 FLU SHOT 02/21/2010 [facility], [place] A 382.00 Otitis Media Acute Suppurative 02/21/2010 [facility], [place] A 46 5.9 Upper Respiratory Infection 02/21/2010 [facility], [place] A V04.81 FLU SHOT 02/21/2010 LINDA ENVIRONMENTAL SERVICES TECHNICIAN, LORI A 382.00 Otitis Media Acute Suppurative 02/21/2010 LINDA ENVIRONMENTAL SERVICES TECHNICIAN, LORI A 46 5.9 Upper Respiratory Infection 02/21/2010 LINDA ENVIRONMENTAL SERVICES TECHNICIAN, LORI A V04.81 FLU SHOT 02/21/2010 QUINTANA DO, MARK K 382.00 Otitis Media Acute Suppurative 02/21/2010 QUINTANA DO, MARK K 465.9 Upper Respiratory Infection 02/21/2010 QUINTANA DO, MARK K V04.81 FLU SHOT 02/21/2010 [facility], [place] A 382.00 Otitis Media Acute Suppurative 02/21/2010 [facility], [place] A 46 5.9 Upper Respiratory Infection 02/21/2010 [facility], [place] A V04.81 FLU SHOT 02/21/2010 LINDA ENVIRONMENTAL SERVICES TECHNICIAN, LORI A 382.00 Otitis Media Acute Suppurative 02/21/2010 LINDA ENVIRONMENTAL SERVICES TECHNICIAN, LORI A 46 5.9 Upper Respiratory Infection 02/21/2010 LINDA ENVIRONMENTAL SERVICES TECHNICIAN, LORI A V04.81 FLU SHOT 02/21/2010 [facility], [place] A 382.00 Otitis Media Acute Suppurative 02/21/2010 [facility], [place] A 46 5.9 Upper Respiratory Infection 02/21/2010 [facility], [place] A V04.81 FLU SHOT 02/21/2010 [facility], [place] A 382.00 Otitis Media Acute Suppurative 02/21/2010 [facility], [place] A 46 5.9 Upper Respiratory Infection 02/21/2010 [facility], [place] A V04.81 FLU SHOT 02/21/2010 FILIPE LAGUNAS, JANNET [...] FILIPE LAGUNAS, JANNET V04.81 FLU SHOT 02/21/2010 [facility], [place] A 382.00 Otitis Media Acute Suppurative 02/21/2010 [facility], [place] A 46 5.9 Upper Respiratory Infection 02/21/2010 [facility], [place] A V04.81 FLU SHOT 02/21/2010 TRACIE RIVERA MD 382.0 0 Otitis Media Acute Suppurative 02/21/2010 TRACIE RIVERA MD 465.9 Upper Respiratory Infection 02/21/2010 TRACIE RIVERA MD V04.8 1 FLU SHOT 02/21/2010 [facility], [place] A 382.00 Otitis Media Acute Suppurative 02/21/2010 [facility] 46 5.9 Upper Respiratory Infection 02/21/2010 [facility] V04.81 FLU SHOT 02/21/2010 [facility] 382.00 Otitis Media Acute Suppurative 02/21/2010 [facility] 46 5.9 Upper Respiratory Infection 02/21/2010 [facility], [place] A V04.81 FLU SHOT 02/21/2010 CITLALY ENVIRONMENTAL SERVICES TECHNICIAN, HEVER 382 .00 Otitis Media Acute Suppurative 02/21/2010 CITLALY ENVIRONMENTAL SERVICES TECHNICIAN, HEVER 465 .9 Upper Respiratory Infection 02/21/2010 CITLALY ENVIRONMENTAL SERVICES TECHNICIAN, HEVER V04 .81 FLU SHOT 02/21/2010 EVIN CARTWRIGHT, MAXINE PEDERSON 382.00 Otitis Media Acute Suppurative 02/21/2010 EVIN CARTWRIGHT MAXINE PEDERSON 465.9 Upper Respiratory Infection 02/21/2010 CLEARY ENVIRONMENTAL SERVICES TECHNICIAN, MAXINE PEDERSON V04.81 FLU SHOT 02/21/2010 CELSO RN, TOSHIA E 382. 00 Otitis Media Acute Suppurative 02/21/2010 CELSO RN, TOSHIA E 465. 9 Upper Respiratory Infection 02/21/2010 CELSO RN, TOSHIA E V04. 81 FLU SHOT 02/21/2010 CELSO RN, TOSHIA E 382. 00 Otitis Media Acute Suppurative 02/21/2010 CELSO RN, TOSHIA E 465. 9 Upper Respiratory Infection 02/21/2010 CELSO RN, TOSHIA E V04. 81 FLU SHOT 02/21/2010 [place] RN, TOSHIA E 382. 00 Otitis Media Acute Suppurative 02/21/2010 CELSO RN, TOSHIA E 465. 9 Upper Respiratory Infection 02/21/2010 CELSO RN, TOSHIA E V04. 81 FLU SHOT 02/21/2010 CELSO RN, TOSHIA E 382. 00 Otitis Media Acute Suppurative 02/21/2010 CELSO RN, TOSHIA E 465. 9 Upper Respiratory Infection 02/21/2010 CELSO RN, TOSHIA E V04. 81 FLU SHOT 02/21/2010 CELSO RN, TOSHIA E 382. 00 Otitis Media Acute Suppurative 02/21/2010 CELSO RN, TOSHIA E 465. 9 Upper Respiratory Infection 02/21/2010 CELSO NASH, TOSHIA E V04. 81 FLU SHOT 02/21/2010 CELSO RN, TOSHIA E 382. 00 Otitis Media Acute Suppurative 02/21/2010 CELSO NASH, TOSHIA E 465. 9 Upper Respiratory Infection 02/21/2010 CELSO RN, TOSHIA E V04. 81 FLU SHOT 02/21/2010 CELSO NASH, TOSHIA E 382. 00 Otitis Media Acute Suppurative 02/21/2010 CELSO NASH, TOSHIA E 465. 9 Upper Respiratory Infection 02/21/2010 CELSO NASH, TOSHIA E V04. 81 FLU SHOT 02/21/2010 CELSO NASH, TOSHIA E 382. 00 Otitis Media Acute Suppurative 02/21/2010 CELSO NASH, TOSHIA E 465. 9 Upper Respiratory Infection 02/21/2010 CELSO NASH, TOSHIA E V04. 81 FLU SHOT 02/21/2010 CELSO NASH, TOSHIA E 382. 00 Otitis Media Acute Suppurative 02/21/2010 CELSO NASH, TOSHIA E 465. 9 Upper Respiratory Infection 02/21/2010 CELSO NASH, TOSHIA E V04. 81 FLU SHOT 02/21/2010 [facility], [place] 382.00 Otitis Media Acute Suppurative 02/21/2010 [facility], [place] 465.9 Upper Respiratory Infection 02/21/2010 [facility], [place] V04.81 FLU SHOT 02/21/2010 [facility], ZAN M 382.00 Otitis Media Acute Suppurative 02/21/2010 [facility], ZAN M 465.9 Upper Respiratory Infection 02/21/2010 [facility], ZAN M V04.81 FLU SHOT 02/21/2010 [facility]INGS WHOLESALER, ZAN M 382.00 Otitis Media Acute Suppurative 02/21/2010 [facility]INGS WHOLESALER, ZAN M 465.9 Upper Respiratory Infection 02/21/2010 [facility] [facility], ZAN M V04.81 FLU SHOT 02/21/2010 CELSO NASH, TOSHIA E 382. 00 Otitis Media Acute Suppurative 02/21/2010 CELSO NASH, TOSHIA E 465. 9 Upper Respiratory Infection 02/21/2010 CELSO NASH, TOSHIA E V04. 81 FLU SHOT 04/19/2010 Ot 845.00 SPR AIN OF ANKLE NOS 04/19/2010 Ot 959.7 LOWE R LEG INJURY NOS 04/19/2010 Ot E000.8 OTH ER EXTERNAL CAUSE STATUS 04/19/2010 Ot E927.0 OVE REXERTION FROM SUDDEN STRENUOUS MOVEM 06/26/2010 Ot 461.9 ACUT E SINUSITIS NOS 06/26/2010 Ot 786.2 COUGH 06/30/2010 311 DEPRES SIVE DISORDER NOS 06/30/2010 311 DEPRES SIVE DISORDER NOS 06/30/2010 JANNET DENT MD 311 DEPRESSIVE DISORDER NOS 06/30/2010 EVIN CARTWRIGHTMAXINEH 311 DEPRESSIVE DISORDER NOS 06/30/2010 311 DEPRES SIVE DISORDER NOS 06/30/2010 311 DEPRES SIVE DISORDER NOS 06/30/2010 311 DEPRES SIVE DISORDER NOS 06/30/2010 311 DEPRES SIVE DISORDER NOS 06/30/2010 311 DEPRES SIVE DISORDER NOS 06/30/2010 311 DEPRES SIVE DISORDER NOS 06/30/2010 311 DEPRES SIVE DISORDER NOS 06/30/2010 EVIN CARTWRIGHT MAXINE GUZMANH 311 DEPRESSIVE DISORDER NOS 06/30/2010 LINDAFAUSTO CARTWRIGHT LORI A 31 1 DEPRESSIVE DISORDER NOS 06/30/2010 EVIN CARTWRIGHTMAXINE 311 DEPRESSIVE DISORDER NOS 06/30/2010 MARK QUINTANA DO K 311 DEPRESSIVE DISORDER NOS 06/30/2010 [facility], [place] 311 DEPRESSIVE DISORDER NOS 06/30/2010 [facility] GLEN A 31 1 DEPRESSIVE DISORDER NOS 06/30/2010 EVIN CARTWRIGHTMAXINE 311 DEPRESSIVE DISORDER NOS 06/30/2010 CHARLIE FRIAS APRN A 311 DEPRESSIVE DISORDER NOS 06/30/2010 [facility] GLEN A 31 1 DEPRESSIVE DISORDER NOS 06/30/2010 311 DEPRES SIVE DISORDER NOS 06/30/2010 LINDA ENVIRONMENTAL SERVICES TECHNICIAN, LORI A 31 1 DEPRESSIVE DISORDER NOS 06/30/2010 [facility], GL[place] A 31 1 DEPRESSIVE DISORDER NOS 06/30/2010 LINDA ENVIRONMENTAL SERVICES TECHNICIAN, LORI A 31 1 DEPRESSIVE DISORDER NOS 06/30/2010 QUINTANA DO MARK K 311 DEPRESSIVE DISORDER NOS 06/30/2010 [facility], [place] A 31 1 DEPRESSIVE DISORDER NOS 06/30/2010 LINDA ENVIRONMENTAL SERVICES TECHNICIAN, LORI A 31 1 DEPRESSIVE DISORDER NOS 06/30/2010 [facility] GLEN A 31 1 DEPRESSIVE DISORDER NOS 06/30/2010 [facility] 1 DEPRESSIVE DISORDER NOS 06/30/2010 JANNET DENT MD 311 DEPRESSIVE DISORDER NOS 06/30/2010 MAXINE CLEARY APRN 311 DEPRESSIVE DISORDER NOS 06/30/2010 JANNET DENT MD 311 DEPRESSIVE DISORDER NOS 06/30/2010 [facility] [place] A 31 1 DEPRESSIVE DISORDER NOS 06/30/2010 TRACIE RIVERA MD 311 DEPRESSIVE DISORDER NOS 06/30/2010 [facility] A 31 1 DEPRESSIVE DISORDER NOS 06/30/2010 [facility] A 31 1 DEPRESSIVE DISORDER NOS 06/30/2010 HEVER BOUCHER APRN [...] TOSHIA E 311 DEPRESSIVE DISORDER NOS 06/30/2010 [facility], [place] 311 DEPRESSIVE DISORDER NOS 06/30/2010 ZAN AL M 3 11 DEPRESSIVE DISORDER NOS 06/30/2010 ZAN AL M 3 11 DEPRESSIVE DISORDER NOS 06/30/2010 TOSHIA [place] RN E 311 DEPRESSIVE DISORDER NOS 08/16/2010 296.90 [...] 296.90 MO MOOD DIS NOS 08/16/2010 EVIN ENVIRONMENTAL SERVICES TECHNICIANMAXINE Wood 296.90 MO MOOD DIS NOS 08/16/2010 LINDA ENVIRONMENTAL SERVICES TECHNICIAN, LORI A 296.90 MO MOOD DIS NOS 08/16/2010 CLEARY ENVIRONMENTAL SERVICES TECHNICIAN, MAXINE PEDERSON 296.90 MO MOOD DIS NOS 08/16/2010 QUINTANA DO, MARK K 296.90 MO MOOD DIS NOS 08/16/2010 [facility] [place] [facility] 296.90 MO MOOD DIS NOS 08/16/2010 [facility] 296.90 MO MOOD DIS NOS 08/16/2010 EVIN ENVIRONMENTAL SERVICES TECHNICIAN, MAXINE PEDERSON 296.90 MO MOOD DIS NOS 08/16/2010 RAJMATTHEWOscar ENVIRONMENTAL SERVICES TECHNICIAN, CHARLIE A 296.90 MO MOOD DIS NOS 08/16/2010 [facility] 296.90 MO MOOD DIS NOS 08/16/2010 296.90 MO MOOD DIS NOS 08/16/2010 LINDA ENVIRONMENTAL SERVICES TECHNICIAN, LORI A 296.90 MO MOOD DIS NOS 08/16/2010 [facility] 296.90 MO MOOD DIS NOS 08/16/2010 LINDA ENVIRONMENTAL SERVICES TECHNICIAN, LORI A 296.90 MO MOOD DIS NOS 08/16/2010 QUINTANA DO, MARK K 296.90 MO MOOD DIS NOS 08/16/2010 [facility] 296.90 MO MOOD DIS NOS 08/16/2010 LINDA ENVIRONMENTAL SERVICES TECHNICIAN, LORI A 296.90 MO MOOD DIS NOS 08/16/2010 [facility] 296.90 MO MOOD DIS NOS 08/16/2010 [facility] 296.90 MO MOOD DIS NOS 08/16/2010 JANNET DENT MD 296.90 MO MOOD DIS NOS 08/16/2010 CLEARY ENVIRONMENTAL SERVICES TECHNICIAN, MAXINE DACIA 296.90 MO MOOD DIS NOS 08/16/2010 JANNET DENT MD 296.90 MO MOOD DIS NOS 08/16/2010 [facility] 296.90 MO MOOD DIS NOS 08/16/2010 TRACIE RIVERA MD 296.9 0 MO MOOD DIS NOS 08/16/2010 [facility] [place] A 296.90 MO MOOD DIS NOS 08/16/2010 [facility] 296.90 MO MOOD DIS NOS 08/16/2010 HEVER BOUCHER APRN 296 .90 MO MOOD DIS NOS 08/16/2010 MAXINE CLEARY APRN 296.90 MO MOOD DIS NOS 08/16/2010 CELSO RN, TOSHIA E 296. 90 MO MOOD DIS NOS 08/16/2010 CELSO RN, TOSHIA E 296. 90 MO MOOD DIS NOS 08/16/2010 [place] RN, TOSHIA E 296. 90 MO MOOD DIS NOS 08/16/2010 CELSO RN, TOSHIA E 296. 90 MO MOOD DIS NOS 08/16/2010 CELSO RN, TOSHIA E 296. 90 MO MOOD DIS NOS 08/16/2010 [place] RN, TOSHIA E 296. 90 MO MOOD DIS NOS 08/16/2010 [place] RN, TOSHIA E 296. 90 MO MOOD DIS NOS 08/16/2010 CELSO RN, TOSHIA E 296. 90 MO MOOD DIS NOS 08/16/2010 [place] RN, TOSHIA E 296. 90 MO MOOD DIS NOS 08/16/2010 [facility], [place] 296.90 MO MOOD DIS NOS 08/16/2010 ZAN AL M 296.90 MO MOOD DIS NOS 08/16/2010 ZAN AL M 296.90 MO MOOD DIS NOS 08/16/2010 CELSO NASH, TOSHIA E 296. 90 MO MOOD DIS NOS 10/26/2010 706.1 ACNE 10/26/2010 706.1 ACNE 10/26/2010 JANNET DENT MD 706.1 ACNE 10/26/2010 MAXINE CLEARY APRN 706.1 ACNE 10/26/2010 706.1 ACNE 10/26/2010 706.1 ACNE 10/26/2010 706.1 ACNE 10/26/2010 706.1 ACNE 10/26/2010 706.1 ACNE 10/26/2010 706.1 ACNE 10/26/2010 706.1 ACNE 10/26/2010 EVIN CARTWRIGHT MAXINE DACIA 706.1 ACNE 10/26/2010 LORI MCKEON APRN 70 6.1 ACNE 10/26/2010 MAXINE CLEARY APRN 706.1 ACNE 10/26/2010 MARK QUINTANA DO 706.1 ACNE 10/26/2010 [facility], [place] 706.1 ACNE 10/26/2010 [facility], GLEN Junior 70 6.1 ACNE 10/26/2010 MAXINE CLEARY APRN 706.1 ACNE 10/26/2010 ALTAGRACIA ENVIRONMENTAL SERVICES TECHNICIANCHARLIE Wood A 706.1 ACNE 10/26/2010 [facility], [place] A 70 6.1 ACNE 10/26/2010 706.1 ACNE 10/26/2010 LINDA ENVIRONMENTAL SERVICES TECHNICIAN, LORI A 70 6.1 ACNE 10/26/2010 [facility], [place] A 70 6.1 ACNE 10/26/2010 LINDA ENVIRONMENTAL SERVICES TECHNICIAN, LORI A 70 6.1 ACNE 10/26/2010 MARK QUINTANA DO K 706.1 ACNE 10/26/2010 [facility], [place] A 70 6.1 ACNE 10/26/2010 LINDA ENVIRONMENTAL SERVICES TECHNICIAN, LORI A 70 6.1 ACNE 10/26/2010 [facility], [place] A 70 6.1 ACNE 10/26/2010 [facility], GL[place] A 70 6.1 ACNE 10/26/2010 FILIPE LAGUNAS, JANNET 706.1 ACNE 10/26/2010 EVIN CARTWRIGHT, MAXINE GUZMANH 706.1 ACNE 10/26/2010 JANNET DENT MD 706.1 ACNE 10/26/2010 [facility], GLEN A 70 6.1 ACNE 10/26/2010 TRACIE RIVERA MD 706.1 ACNE 10/26/2010 [facility] 70 6.1 ACNE 10/26/2010 [facility] 70 6.1 ACNE 10/26/2010 HEVER BOUCHER APRN 706 .1 ACNE 10/26/2010 EVIN CARTWRIGHT MAXINE DACIA 706.1 ACNE 10/26/2010 CELSO RN, TOSHIA E 706. 1 ACNE 10/26/2010 CELSO RN, TOSHIA E 706. 1 ACNE 10/26/2010 CELSO RN, TOSHIA E 706. 1 ACNE 10/26/2010 CELSO RN, TOSHIA E 706. 1 ACNE 10/26/2010 CELSO RN, TOSHIA E 706. 1 ACNE 10/26/2010 CELSO RN, TOSHIA E 706. 1 ACNE 10/26/2010 CELSO RN, TOSHIA E 706. 1 ACNE 10/26/2010 CELSO RN, TOSHIA E 706. 1 ACNE 10/26/2010 CELSO RN, TOSHIA E 706. 1 ACNE 10/26/2010 [facility], [place] Jackson 706.1 ACNE 10/26/2010 [facility] WHOLESALER, ZAN M 706.1 ACNE 10/26/2010 [facility], ZAN M 706.1 ACNE 10/26/2010 [facility] NASH, TOSHIA Moore 706. 1 ACNE 01/20/2011 V25.01 CON TRACEPTION - ORAL CONTRACEPTION 01/20/2011 V65.45 COU NSELING - STD 01/20/2011 V25.01 CON TRACEPTION - ORAL CONTRACEPTION 01/20/2011 V65.45 COU NSELING - STD 01/20/2011 JANNET DENT MD V25.01 CONTRACEPTION - ORAL CONTRACEPTION 01/20/2011 JANNET DENT MD V65.45 COUNSELING - STD 01/20/2011 MAXINE CLEARY APRN V25.01 CONTRACEPTION - ORAL CONTRACEPTION 01/20/2011 MAXINE CLEARY APRN V65.45 COUNSELING - STD 01/20/2011 V25.01 CON TRACEPTION - ORAL CONTRACEPTION 01/20/2011 V65.45 COU NSELING - STD 01/20/2011 V25.01 CON TRACEPTION - ORAL CONTRACEPTION 01/20/2011 V65.45 COU NSELING - STD 01/20/2011 V25.01 CON TRACEPTION - ORAL CONTRACEPTION 01/20/2011 V65.45 COU NSELING - STD 01/20/2011 V25.01 CON TRACEPTION - ORAL CONTRACEPTION 01/20/2011 V65.45 COU NSELING - STD 01/20/2011 V25.01 CON TRACEPTION - ORAL CONTRACEPTION 01/20/2011 V65.45 COU NSELING - STD 01/20/2011 V25.01 CON TRACEPTION - ORAL CONTRACEPTION 01/20/2011 V65.45 COU NSELING - STD 01/20/2011 V25.01 CON TRACEPTION - ORAL CONTRACEPTION 01/20/2011 V65.45 COU NSELING - STD 01/20/2011 MAXINE CLEARY APRN V25.01 CONTRACEPTION - ORAL CONTRACEPTION 01/20/2011 MAXINE CLEARY APRN V65.45 COUNSELING - STD 01/20/2011 LORI MCKEON APRN V25.01 CONTRACEPTION - ORAL CONTRACEPTION 01/20/2011 LORI MCKEON APRN V65.45 COUNSELING - STD 01/20/2011 MAXINE CLEARY APRN V25.01 CONTRACEPTION - ORAL CONTRACEPTION 01/20/2011 EVIN CHAY MAXINE PEDERSON V65.45 COUNSELING - STD 01/20/2011 MARK QUINTANA DO V25.01 CONTRACEPTION - ORAL CONTRACEPTION 01/20/2011 QUINTANA DOMARK K V65.45 COUNSELING - STD 01/20/2011 [facility], [place] [facility] V25.01 CONTRACEPTION - ORAL CONTRACEPTION 01/20/2011 [facility], [place] [facility] V65.45 COUNSELING - STD 01/20/2011 [facility], [place] A V25.01 CONTRACEPTION - ORAL CONTRACEPTION 01/20/2011 [facility], [place] A V65.45 COUNSELING - STD 01/20/2011 EVIN CHAY MAXINE PEDERSON V25.01 CONTRACEPTION - ORAL CONTRACEPTION 01/20/2011 CLEARY CHAY MAXINE PEDERSON V65.45 COUNSELING - STD 01/20/2011 ABELINO FRIAS APRNYL A V25.01 CONTRACEPTION - ORAL CONTRACEPTION 01/20/2011 ALTAGRACIA CARTWRIGHT CHARLIE A V65.45 COUNSELING - STD 01/20/2011 [facility], [place] A V25.01 CONTRACEPTION - ORAL CONTRACEPTION 01/20/2011 [facility], [place] Junior V65.45 COUNSELING - STD 01/20/2011 V25.01 CON TRACEPTION - ORAL CONTRACEPTION 01/20/2011 V65.45 COU NSELING - STD 01/20/2011 LINDAIsrael CARTWRIGHT LORI A V25.01 CONTRACEPTION - ORAL CONTRACEPTION 01/20/2011 LINDAIsrael CARTWRIGHT LORI A V65.45 COUNSELING - STD 01/20/2011 [facility], [place] A V25.01 CONTRACEPTION - ORAL CONTRACEPTION 01/20/2011 [facility], [place] A V65.45 COUNSELING - STD 01/20/2011 [facility] ENVIRONMENTAL SERVICES TECHNICIAN, LORI A V25.01 CONTRACEPTION - ORAL CONTRACEPTION 01/20/2011 LINDA ENVIRONMENTAL SERVICES TECHNICIAN, LORI A V65.45 COUNSELING - STD 01/20/2011 MARK QUINTANA DO V25.01 CONTRACEPTION - ORAL CONTRACEPTION 01/20/2011 MARK QUINTANA DO K V65.45 COUNSELING - STD 01/20/2011 [facility], [place] Junior V25.01 CONTRACEPTION - ORAL CONTRACEPTION 01/20/2011 [facility], [facility] Junior V65.45 COUNSELING - STD 01/20/2011 LINDA APRN, LORI A V25.01 CONTRACEPTION - ORAL CONTRACEPTION 01/20/2011 LINDA ENVIRONMENTAL SERVICES TECHNICIAN, LORI A V65.45 COUNSELING - STD 01/20/2011 [facility], GLEN A V25.01 CONTRACEPTION - ORAL CONTRACEPTION 01/20/2011 [facility], [place]EN A V65.45 COUNSELING - STD 01/20/2011 [facility], GLEN A V25.01 CONTRACEPTION - ORAL CONTRACEPTION 01/20/2011 [facility], GLNE A V65.45 COUNSELING - STD 01/20/2011 FILIPE LAGUNAS, JANNET V25.01 CONTRACEPTION - ORAL CONTRACEPTION 01/20/2011 FILIPE LAGUNAS, JANNET V65.45 COUNSELING - STD 01/20/2011 MAXINE CLEARY APRN V25.01 CONTRACEPTION - ORAL CONTRACEPTION 01/20/2011 MAXINE CLEARY APRN V65.45 COUNSELING - STD 01/20/2011 FILIPE LAGUNAS, JANNET V25.01 CONTRACEPTION - ORAL CONTRACEPTION 01/20/2011 FILIPE LAGUNAS, JANNET V65.45 COUNSELING - STD 01/20/2011 [facility], GLEN A V25.01 CONTRACEPTION - ORAL CONTRACEPTION 01/20/2011 [facility], [place] A V65.45 COUNSELING - STD 01/20/2011 TRACIE RIVERA MD V25.0 1 CONTRACEPTION - ORAL CONTRACEPTION 01/20/2011 TRACIE RIVERA MD V65.4 5 COUNSELING - STD 01/20/2011 [facility], [place] A V25.01 CONTRACEPTION - ORAL CONTRACEPTION 01/20/2011 [facility], [place] A V65.45 COUNSELING - STD 01/20/2011 [facility], [place] A V25.01 CONTRACEPTION - ORAL CONTRACEPTION 01/20/2011 [facility], [place] A V65.45 COUNSELING - STD 01/20/2011 [facility] ENVIRONMENTAL SERVICES TECHNICIAN, HEVER V25 .01 CONTRACEPTION - ORAL CONTRACEPTION 01/20/2011 [employer] ENVIRONMENTAL SERVICES TECHNICIAN, HEVER V65 .45 COUNSELING - STD 01/20/2011 MAXINE CLEARY APRN V25.01 CONTRACEPTION - ORAL CONTRACEPTION 01/20/2011 MAXINE CLEARY APRN V65.45 COUNSELING - STD 01/20/2011 TOSHIA HOUSTON RN V25. 01 CONTRACEPTION - ORAL CONTRACEPTION 01/20/2011 PRESTON HOUSTON RNISTA E V65. 45 COUNSELING - STD 01/20/2011 CELSO NASH, TOSHIA E V25. 01 CONTRACEPTION - ORAL CONTRACEPTION 01/20/2011 TOSHIA HOUSTON RN E V65. 45 COUNSELING - STD 01/20/2011 CELSO NASH, TOSHIA E V25. 01 CONTRACEPTION - ORAL CONTRACEPTION 01/20/2011 TOSHIA HOUSTON RN E V65. 45 COUNSELING - STD 01/20/2011 TOSHIA HOUSTON RN E V25. 01 CONTRACEPTION - ORAL CONTRACEPTION 01/20/2011 TOSHIA HOUSTON RN E V65. 45 COUNSELING - STD 01/20/2011 TOSHIA HOUSTON RN E V25. 01 CONTRACEPTION - ORAL CONTRACEPTION 01/20/2011 TOSHIA HOUSTON RN E V65. 45 COUNSELING - STD 01/20/2011 TOSHIA HOUSTON RN E V25. 01 CONTRACEPTION - ORAL CONTRACEPTION 01/20/2011 TOSHIA HOUSTON RN E V65. 45 COUNSELING - STD 01/20/2011 TOSHIA HOUSTON RN E V25. 01 CONTRACEPTION - ORAL CONTRACEPTION 01/20/2011 TOSHIA HOUSTON RN E V65. 45 COUNSELING - STD 01/20/2011 TOSHIA HOUSTON RN E V25. 01 CONTRACEPTION - ORAL CONTRACEPTION 01/20/2011 TOSHIA HOUSTON RN E V65. 45 COUNSELING - STD 01/20/2011 TOSHIA HOUSTON RN E V25. 01 CONTRACEPTION - ORAL CONTRACEPTION 01/20/2011 TOSHIA HOUSTON RN E V65. 45 COUNSELING - STD 01/20/2011 [facility], GW[facility] R V25.01 CONTRACEPTION - ORAL CONTRACEPTION 01/20/2011 [facility], [facility] R V65.45 COUNSELING - STD 01/20/2011 ZAN AL V25.01 CONTRACEPTION - ORAL CONTRACEPTION 01/20/2011 ZAN AL V65.45 COUNSELING - STD 01/20/2011 ZAN AL V25.01 CONTRACEPTION - ORAL CONTRACEPTION 01/20/2011 ZAN AL V65.45 COUNSELING - STD 01/20/2011 TOSHIA HOUSTON RN E V25. 01 CONTRACEPTION - ORAL CONTRACEPTION 01/20/2011 TOSHIA HOUSTON RN E V65. 45 COUNSELING - STD 01/30/2011 626.4 IRRE GULAR MENSTRUAL CYCLE 01/30/2011 626.4 IRRE GULAR MENSTRUAL CYCLE 01/30/2011 JANNET DENT MD 626.4 IRREGULAR MENSTRUAL CYCLE 01/30/2011 MAXINE CLEARY APRN 626.4 IRREGULAR MENSTRUAL CYCLE 01/30/2011 626.4 IRRE GULAR MENSTRUAL CYCLE 01/30/2011 626.4 IRRE GULAR MENSTRUAL CYCLE 01/30/2011 626.4 IRRE GULAR MENSTRUAL CYCLE 01/30/2011 626.4 IRRE GULAR MENSTRUAL CYCLE 01/30/2011 626.4 IRRE GULAR MENSTRUAL CYCLE 01/30/2011 626.4 IRRE GULAR MENSTRUAL CYCLE 01/30/2011 626.4 IRRE GULAR MENSTRUAL CYCLE 01/30/2011 MAXINE CLEARY APRN 626.4 IRREGULAR MENSTRUAL CYCLE 01/30/2011 LINDA ENVIRONMENTAL SERVICES TECHNICIAN, LORI A 62 6.4 IRREGULAR MENSTRUAL CYCLE 01/30/2011 MAXINE CLEARY APRN 626.4 IRREGULAR MENSTRUAL CYCLE 01/30/2011 MARK QUINTANA DO K 626.4 IRREGULAR MENSTRUAL CYCLE 01/30/2011 SELWYN LUISCSGWENDOLYN R 626.4 IRREGULAR MENSTRUAL CYCLE 01/30/2011 [facility], GLEN A 62 6.4 IRREGULAR MENSTRUAL CYCLE 01/30/2011 CLEARYMAXINE GARCIA APRN 626.4 IRREGULAR MENSTRUAL CYCLE 01/30/2011 CHARLIE FRIAS APRN A 626.4 IRREGULAR MENSTRUAL CYCLE 01/30/2011 [facility], GLEN A 62 6.4 IRREGULAR MENSTRUAL CYCLE 01/30/2011 626.4 IRRE GULAR MENSTRUAL CYCLE 01/30/2011 LINDA ENVIRONMENTAL SERVICES TECHNICIAN, LORI A 62 6.4 IRREGULAR MENSTRUAL CYCLE 01/30/2011 [facility], GLEN A 62 6.4 IRREGULAR MENSTRUAL CYCLE 01/30/2011 LINDA ENVIRONMENTAL SERVICES TECHNICIAN, LORI A 62 6.4 IRREGULAR MENSTRUAL CYCLE 01/30/2011 QUINTANA DONATALIA K 626.4 IRREGULAR MENSTRUAL CYCLE 01/30/2011 [facility], GLEN A 62 6.4 IRREGULAR MENSTRUAL CYCLE 01/30/2011 LINDA ENVIRONMENTAL SERVICES TECHNICIAN, LORI A 62 6.4 IRREGULAR MENSTRUAL CYCLE 01/30/2011 [facility], GLEN A 62 6.4 IRREGULAR MENSTRUAL CYCLE 01/30/2011 [facility], GLEN A 62 6.4 IRREGULAR MENSTRUAL CYCLE 01/30/2011 JANNET DENT MD 626.4 IRREGULAR MENSTRUAL CYCLE 01/30/2011 EVIN CARTWRIGHT MAXINE GUZMANH 626.4 IRREGULAR MENSTRUAL CYCLE 01/30/2011 JANNET DENT MD 626.4 IRREGULAR MENSTRUAL CYCLE 01/30/2011 [facility], GLEN A 62 6.4 IRREGULAR MENSTRUAL CYCLE 01/30/2011 TRACIE RIVERA MD 626.4 IRREGULAR MENSTRUAL CYCLE 01/30/2011 [facility], GLEN A 62 6.4 IRREGULAR MENSTRUAL CYCLE 01/30/2011 [facility], GLEN A 62 6.4 IRREGULAR MENSTRUAL CYCLE 01/30/2011 HEVER BOUCHER APRN 626 .4 IRREGULAR MENSTRUAL CYCLE 01/30/2011 EVIN CARTWRIGHT MAXINE PEDERSON 626.4 IRREGULAR MENSTRUAL CYCLE 01/30/2011 CELSO NASH, TOSHIA E 626. 4 IRREGULAR MENSTRUAL CYCLE 01/30/2011 CELSO RN, TOSHIA E 626. 4 IRREGULAR MENSTRUAL CYCLE 01/30/2011 CELSO NASH, TOSHIA E 626. 4 IRREGULAR MENSTRUAL CYCLE 01/30/2011 CELSO NASH, TOSHIA E 626. 4 IRREGULAR MENSTRUAL CYCLE 01/30/2011 CELSO RN, TOSHIA E 626. 4 IRREGULAR MENSTRUAL CYCLE 01/30/2011 CELSO RN, TOSHIA E 626. 4 IRREGULAR MENSTRUAL CYCLE 01/30/2011 CELSO RN, TOSHIA E 626. 4 IRREGULAR MENSTRUAL CYCLE 01/30/2011 CELSO RN, TOSHIA E 626. 4 IRREGULAR MENSTRUAL CYCLE 01/30/2011 CELSO NASH, TOSHIA E 626. 4 IRREGULAR MENSTRUAL CYCLE 01/30/2011 [facility], [facility]END[facility]YN R 626.4 IRREGULAR MENSTRUAL CYCLE 01/30/2011 ZAN AL M 626.4 IRREGULAR MENSTRUAL CYCLE 01/30/2011 ZAN LA M 626.4 IRREGULAR MENSTRUAL CYCLE 01/30/2011 CELSO NASH, TOSHIA E 626. 4 IRREGULAR MENSTRUAL CYCLE 02/14/2011 461.9 SINU SITIS ACUTE 02/14/2011 V25.09 CON TRACEPTIVE COUNSELING - GENERAL 02/14/2011 461.9 SINU SITIS ACUTE 02/14/2011 V25.09 CON TRACEPTIVE COUNSELING - GENERAL 02/14/2011 JANNET DENT MD 461.9 Sinusitis Acute 02/14/2011 JANNET DENT MD V25.09 CONTRACEPTIVE COUNSELING - GENERAL 02/14/2011 MAXINE CLEARY APRN 461.9 Sinusitis Acute 02/14/2011 MAXINE CLEARY APRN V25.09 CONTRACEPTIVE COUNSELING - GENERAL 02/14/2011 461.9 Sinu sitis Acute 02/14/2011 V25.09 CON TRACEPTIVE COUNSELING - GENERAL 02/14/2011 461.9 Sinu sitis Acute 02/14/2011 V25.09 CON TRACEPTIVE COUNSELING - GENERAL 02/14/2011 461.9 Sinu sitis Acute 02/14/2011 V25.09 CON TRACEPTIVE COUNSELING - GENERAL 02/14/2011 461.9 Sinu sitis Acute 02/14/2011 V25.09 CON TRACEPTIVE COUNSELING - GENERAL 02/14/2011 461.9 Sinu sitis Acute 02/14/2011 V25.09 CON TRACEPTIVE COUNSELING - GENERAL 02/14/2011 461.9 Sinu sitis Acute 02/14/2011 V25.09 CON TRACEPTIVE COUNSELING - GENERAL 02/14/2011 461.9 Sinu sitis Acute 02/14/2011 V25.09 CON TRACEPTIVE COUNSELING - GENERAL 02/14/2011 MAXINE CLEARY APRN 461.9 Sinusitis Acute 02/14/2011 EVIN ACOSTANMAXINE V25.09 CONTRACEPTIVE COUNSELING - GENERAL 02/14/2011 LINDA LORI CARTWRIGHT A 46 1.9 Sinusitis Acute 02/14/2011 LINDA ACOSTALORI Wood A V25.09 CONTRACEPTIVE COUNSELING - GENERAL 02/14/2011 EVIN ACOSTANMAXINE 461.9 Sinusitis Acute 02/14/2011 EVIN ACOSTANMAXINE V25.09 CONTRACEPTIVE COUNSELING - GENERAL 02/14/2011 MARK QUINTANA DO 461.9 Sinusitis Acute 02/14/2011 MARK QUINTANA DO V25.09 CONTRACEPTIVE COUNSELING - GENERAL 02/14/2011 [facility] 461.9 Sinusitis Acute 02/14/2011 [facility] V25.09 CONTRACEPTIVE COUNSELING - GENERAL 02/14/2011 [facility]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 V25.02 CONTRACEPTION - ANY METHOD 12/11/2012 MAXINE CLEARY APRN V25.02 CONTRACEPTION - ANY METHOD 12/11/2012 MARK QUINTANA DO V25.02 CONTRACEPTION - ANY METHOD 12/11/2012 [facility], [place] Jackson V25.02 CONTRACEPTION - ANY METHOD 12/11/2012 [facility], [place] Junior V25.02 CONTRACEPTION - ANY METHOD 12/11/2012 MAXINE CLEARY APRN V25.02 CONTRACEPTION - ANY METHOD 12/11/2012 CHARLIE FRIAS APRN V25.02 CONTRACEPTION - ANY METHOD 12/11/2012 [facility] [place] Junior V25.02 CONTRACEPTION - ANY METHOD 12/11/2012 V25.02 CON TRACEPTION - ANY METHOD 12/11/2012 LORI MCKEON APRN A V25.02 CONTRACEPTION - ANY METHOD 12/11/2012 [facility], [place] Junior V25.02 CONTRACEPTION - ANY METHOD 12/11/2012 LORI MCKEON APRN A V25.02 CONTRACEPTION - ANY METHOD 12/11/2012 MARK QUINTANA DO Jenna V25.02 CONTRACEPTION - ANY METHOD 12/11/2012 [facility], [place] A V25.02 CONTRACEPTION - ANY METHOD 12/11/2012 LORI MCKEON APRN V25.02 CONTRACEPTION - ANY METHOD 12/11/2012 [facility], [place] A V25.02 CONTRACEPTION - ANY METHOD 12/11/2012 [facility], [place] A V25.02 CONTRACEPTION - ANY METHOD 12/11/2012 FILIPE LAGUNAS, JANNET V25.02 CONTRACEPTION - ANY METHOD 12/11/2012 EVIN CARTWRIGHT MAXINE DACIA V25.02 CONTRACEPTION - ANY METHOD 12/11/2012 JANNET DENT MD V25.02 CONTRACEPTION - ANY METHOD 12/11/2012 [facility] [place] Junior V25.02 CONTRACEPTION - ANY METHOD 12/11/2012 TRACIE RIVERA MD V25.0 2 CONTRACEPTION - ANY METHOD 12/11/2012 [facility], [place] A V25.02 CONTRACEPTION - ANY METHOD 12/11/2012 [facility] [place] Junior V25.02 CONTRACEPTION - ANY METHOD 12/11/2012 HEVER BOUCHER APRN V25 .02 CONTRACEPTION - ANY METHOD 12/11/2012 EVIN CARTWRIGHT MAXINE DACIA V25.02 CONTRACEPTION - ANY METHOD 12/11/2012 TOSHIA HOUSTON RN E V25. 02 CONTRACEPTION - ANY METHOD 12/11/2012 TOSHIA HOUSTON RN E V25. 02 CONTRACEPTION - ANY METHOD 12/11/2012 TOSHIA HOUSTON RN E V25. 02 CONTRACEPTION - ANY METHOD 12/11/2012 TOSHIA HOUSTON RN E V25. 02 CONTRACEPTION - ANY METHOD 12/11/2012 TOSHIA HOUSTON RN E V25. 02 CONTRACEPTION - ANY METHOD 12/11/2012 TOSHIA HOUSTON RN E V25. 02 CONTRACEPTION - ANY METHOD 12/11/2012 TOSHIA HOUSTON RN E V25. 02 CONTRACEPTION - ANY METHOD 12/11/2012 TOSHIA HOUSTON RN E V25. 02 CONTRACEPTION - ANY METHOD 12/11/2012 TOSHIA HOUSTON RN E V25. 02 CONTRACEPTION - ANY METHOD 12/11/2012 [facility], [place] Jackson V25.02 CONTRACEPTION - ANY METHOD 12/11/2012 ZAN AL V25.02 CONTRACEPTION - ANY METHOD 12/11/2012 ZAN AL V25.02 CONTRACEPTION - ANY METHOD 12/11/2012 CELSO NASH, TOSHIA Moore V25. 02 CONTRACEPTION - ANY METHOD 12/18/2012 MAXINE CLEARY APRN 296.32 MO DEPRESSIVE RECURRENT MODERATE 12/18/2012 MARK QUINTANA DO 296.32 MO DEPRESSIVE RECURRENT MODERATE 12/18/2012 [facility], [place] R 296.32 MO DEPRESSIVE RECURRENT MODERATE 12/18/2012 [facility], [place] A 296.32 MO DEPRESSIVE RECURRENT MODERATE 12/18/2012 MAXINE CLEARY APRN 296.32 MO DEPRESSIVE RECURRENT MODERATE 12/18/2012 CHARLIE FRIAS APRN A 296.32 MO DEPRESSIVE RECURRENT MODERATE 12/18/2012 [facility], [place] A 296.32 MO DEPRESSIVE RECURRENT MODERATE 12/18/2012 296.32 MO DEPRESSIVE RECURRENT MODERATE 12/18/2012 WOLF MCKEON APRNIDI A 296.32 MO DEPRESSIVE RECURRENT MODERATE 12/18/2012 [facility], [place] A 296.32 MO DEPRESSIVE RECURRENT MODERATE 12/18/2012 WOLF MCKEON APRNIDI A 296.32 MO DEPRESSIVE RECURRENT MODERATE 12/18/2012 MARK QUINTANA DO 296.32 MO DEPRESSIVE RECURRENT MODERATE 12/18/2012 [facility], [place] A 296.32 MO DEPRESSIVE RECURRENT MODERATE 12/18/2012 WOLF MCKEON APRNIDI A 296.32 MO DEPRESSIVE RECURRENT MODERATE 12/18/2012 [facility], [place] A 296.32 MO DEPRESSIVE RECURRENT MODERATE 12/18/2012 [facility], [place] A 296.32 MO DEPRESSIVE RECURRENT MODERATE 12/18/2012 JANNET DENT MD 296.32 MO DEPRESSIVE RECURRENT MODERATE 12/18/2012 MAXINE CLEARY APRN 296.32 MO DEPRESSIVE RECURRENT MODERATE 12/18/2012 JANNET DENT MD 296.32 MO DEPRESSIVE RECURRENT MODERATE 12/18/2012 [facility], [place] A 296.32 MO DEPRESSIVE RECURRENT MODERATE 12/18/2012 TRACIE RIVERA MD 296.3 2 MO DEPRESSIVE RECURRENT MODERATE 12/18/2012 [facility], [place] A 296.32 MO DEPRESSIVE RECURRENT MODERATE 12/18/2012 [facility], [place] A 296.32 MO DEPRESSIVE RECURRENT MODERATE 12/18/2012 HEVER BOUCHER APRN 296 .32 MO DEPRESSIVE RECURRENT MODERATE 12/18/2012 MAXINE CLEARY APRN 296.32 MO DEPRESSIVE RECURRENT MODERATE 12/18/2012 CELSO NASH, TOSHIA E 296. 32 MO DEPRESSIVE RECURRENT MODERATE 12/18/2012 CELSO NASH, TOSHIA E 296. 32 MO DEPRESSIVE RECURRENT MODERATE 12/18/2012 CELSO NASH, TOSHIA E 296. 32 MO DEPRESSIVE RECURRENT MODERATE 12/18/2012 CELSO NASH, TOSHIA E 296. 32 MO DEPRESSIVE RECURRENT MODERATE 12/18/2012 CELSO NASH, TOSHIA E 296. 32 MO DEPRESSIVE RECURRENT MODERATE 12/18/2012 CELSO NASH, TOSHIA E 296. 32 MO DEPRESSIVE RECURRENT MODERATE 12/18/2012 CELSO RN, TOSHIA E 296. 32 MO DEPRESSIVE RECURRENT MODERATE 12/18/2012 CELSO NASH, TOSHIA E 296. 32 MO DEPRESSIVE RECURRENT MODERATE 12/18/2012 CELSO NASH, TOSHIA E 296. 32 MO DEPRESSIVE RECURRENT MODERATE 12/18/2012 [facility], [place] R 296.32 MO DEPRESSIVE RECURRENT MODERATE 12/18/2012 ZAN AL M 296.32 MO DEPRESSIVE RECURRENT MODERATE 12/18/2012 ZAN AL M 296.32 MO DEPRESSIVE RECURRENT MODERATE 12/18/2012 TOSHIA HOUSTON RN E 296. 32 MO DEPRESSIVE RECURRENT MODERATE 12/19/2012 KATH NIETO APRN Ot 891 .0 OPEN WND KNEE/LEG/ANKLE 12/19/2012 KATH NIETO ENVIRONMENTAL SERVICES TECHNICIAN Ot E000.8 OTHER EXTERNAL CAUSE STATUS 12/19/2012 KATH NIETO APRN Ot E849.0 ACCIDENT IN HOME 12/19/2012 KATH NIETO APRN Ot E906.0 DOG BITE 01/05/2013 MARK QUINTANA DO 692.2 CONTACT DERMATITIS AND OTHER ECZEMA DUE TO SOLVENTS 01/05/2013 [facility], [place] R 692.2 CONTACT DERMATITIS AND OTHER ECZEMA DUE TO SOLVENTS 01/05/2013 [facility], [place] A 69 2.2 CONTACT DERMATITIS AND OTHER ECZEMA DUE TO SOLVENTS 01/05/2013 MAXINE CLEARY APRN 692.2 CONTACT DERMATITIS AND OTHER ECZEMA DUE TO SOLVENTS 01/05/2013 CHARLIE FRIAS APRN A 692.2 CONTACT DERMATITIS AND OTHER ECZEMA DUE TO SOLVENTS 01/05/2013 [facility], [place] A 69 2.2 CONTACT DERMATITIS AND OTHER ECZEMA DUE TO SOLVENTS 01/05/2013 692.2 CONT ACT DERMATITIS AND OTHER ECZEMA DUE TO SOLVENTS 01/05/2013 LINDA ENVIRONMENTAL SERVICES TECHNICIAN, LORI A 69 2.2 CONTACT DERMATITIS AND OTHER ECZEMA DUE TO SOLVENTS 01/05/2013 [facility], [place] A 69 2.2 CONTACT DERMATITIS AND OTHER ECZEMA DUE TO SOLVENTS 01/05/2013 LINDA ENVIRONMENTAL SERVICES TECHNICIAN, LORI A 69 2.2 CONTACT DERMATITIS AND OTHER ECZEMA DUE TO SOLVENTS 01/05/2013 MARIANO WOODY MARK K 692.2 CONTACT DERMATITIS AND OTHER ECZEMA DUE TO SOLVENTS 01/05/2013 [facility], [place] A 69 2.2 CONTACT DERMATITIS AND OTHER ECZEMA DUE TO SOLVENTS 01/05/2013 LINDA ENVIRONMENTAL SERVICES TECHNICIAN, LORI A 69 2.2 CONTACT DERMATITIS AND OTHER ECZEMA DUE TO SOLVENTS 01/05/2013 [facility], GLEN A 69 2.2 CONTACT DERMATITIS AND OTHER ECZEMA DUE TO SOLVENTS 01/05/2013 [facility], GLEN A 69 2.2 CONTACT DERMATITIS AND OTHER ECZEMA DUE TO SOLVENTS 01/05/2013 JANNET DENT MD 692.2 CONTACT DERMATITIS AND OTHER ECZEMA DUE TO SOLVENTS 01/05/2013 MAXINE CLEARY APRN 692.2 CONTACT DERMATITIS AND OTHER ECZEMA DUE TO SOLVENTS 01/05/2013 JANNET DENT MD 692.2 CONTACT DERMATITIS AND OTHER ECZEMA DUE TO SOLVENTS 01/05/2013 [facility] 69 2.2 CONTACT DERMATITIS AND OTHER ECZEMA DUE TO SOLVENTS 01/05/2013 TRACEI RIVERA MD 692.2 CONTACT DERMATITIS AND OTHER ECZEMA DUE TO SOLVENTS 01/05/2013 [facility] 69 2.2 CONTACT DERMATITIS AND OTHER ECZEMA DUE TO SOLVENTS 01/05/2013 [facility] 69 2.2 CONTACT DERMATITIS AND OTHER ECZEMA DUE TO SOLVENTS 01/05/2013 HEVER BOUCHER APRN 692 .2 CONTACT DERMATITIS AND OTHER ECZEMA DUE TO SOLVENTS 01/05/2013 MAXINE CLEARY APRN 692.2 CONTACT DERMATITIS AND OTHER ECZEMA DUE TO SOLVENTS 01/05/2013 TOSHIA HOUSTON RN 692. 2 CONTACT DERMATITIS AND OTHER ECZEMA DUE TO SOLVENTS 01/05/2013 TOSHIA HOUSTON RN E 692. 2 CONTACT DERMATITIS AND OTHER ECZEMA DUE TO SOLVENTS 01/05/2013 TOSHIA HOUSTON RN 692. 2 CONTACT DERMATITIS AND OTHER ECZEMA DUE TO SOLVENTS 01/05/2013 TOSHIA HOUSTON RN E 692. 2 CONTACT DERMATITIS AND OTHER ECZEMA DUE TO SOLVENTS 01/05/2013 CELSO NASH, TOSHIA E 692. 2 CONTACT DERMATITIS AND OTHER ECZEMA DUE TO SOLVENTS 01/05/2013 CELSO NASH, TOSHIA E 692. 2 CONTACT DERMATITIS AND OTHER ECZEMA DUE TO SOLVENTS 01/05/2013 CELSO NASH, TOSHIA E 692. 2 CONTACT DERMATITIS AND OTHER ECZEMA DUE TO SOLVENTS 01/05/2013 CELSO NASH, TOSHIA E 692. 2 CONTACT DERMATITIS AND OTHER ECZEMA DUE TO SOLVENTS 01/05/2013 TOSHIA HOUSTON RN E 692. 2 CONTACT DERMATITIS AND OTHER ECZEMA DUE TO SOLVENTS 01/05/2013 [facility], [place] R 692.2 CONTACT DERMATITIS AND OTHER ECZEMA DUE TO SOLVENTS 01/05/2013 ZAN AL 692.2 CONTACT DERMATITIS AND OTHER ECZEMA DUE TO SOLVENTS 01/05/2013 ZAN AL 692.2 CONTACT DERMATITIS AND OTHER ECZEMA DUE TO SOLVENTS 01/05/2013 CELSO NASH, TOSHIA E 692. 2 CONTACT DERMATITIS AND OTHER ECZEMA DUE TO SOLVENTS 03/09/2013 EVIN CARTWRIGHT, MAXINE PEDERSON 295.70 P SCHIZO AFFECTIVE 03/09/2013 ALTAGRACIA CARTWRIGHT, CHARLIE A 295.70 P SCHIZO AFFECTIVE 03/09/2013 [facility], [place] A 295.70 P SCHIZO AFFECTIVE 03/09/2013 295.70 P S CHIZO AFFECTIVE 03/09/2013 LINDA ENVIRONMENTAL SERVICES TECHNICIAN, LORI A 295.70 P SCHIZO AFFECTIVE 03/09/2013 [facility], [place] A 295.70 P SCHIZO AFFECTIVE 03/09/2013 LINDA ENVIRONMENTAL SERVICES TECHNICIAN, LORI A 295.70 P SCHIZO AFFECTIVE 03/09/2013 MARK QUINTANA DO 295.70 P SCHIZO AFFECTIVE 03/09/2013 [facility], [place] A 295.70 P SCHIZO AFFECTIVE 03/09/2013 LINDA ENVIRONMENTAL SERVICES TECHNICIAN, LORI A 295.70 P SCHIZO AFFECTIVE 03/09/2013 [facility], [place] A 295.70 P SCHIZO AFFECTIVE 03/09/2013 [facility], [place] A 295.70 P SCHIZO AFFECTIVE 03/09/2013 JANNET DENT MD 295.70 P SCHIZO AFFECTIVE 03/09/2013 MAXINE CLEARY APRN 295.70 P SCHIZO AFFECTIVE 03/09/2013 JANNET DENT MD 295.70 P SCHIZO AFFECTIVE 03/09/2013 [facility], [place] A 295.70 P SCHIZO AFFECTIVE 03/09/2013 TRACIE RIVERA MD 295.7 0 P SCHIZO AFFECTIVE 03/09/2013 [facility], [place] A 295.70 P SCHIZO AFFECTIVE 03/09/2013 [facility], [place] A 295.70 P SCHIZO AFFECTIVE 03/09/2013 HEVER BOUCHER APRN 295 .70 P SCHIZO AFFECTIVE 03/09/2013 EVIN ENVIRONMENTAL SERVICES TECHNICIAN, MAXINE PEDERSON 295.70 P SCHIZO AFFECTIVE 03/09/2013 HOUSTON RN, TOSHIA E 295. 70 P SCHIZO AFFECTIVE 03/09/2013 HOUSTON RN, TOSHIA E 295. 70 P SCHIZO AFFECTIVE 03/09/2013 HOUSTON RN, TOSHIA E 295. 70 P SCHIZO AFFECTIVE 03/09/2013 HOUSTON RN, TOSHIA E 295. 70 P SCHIZO AFFECTIVE 03/09/2013 HOUSTON RN, TOSHIA E 295. 70 P SCHIZO AFFECTIVE 03/09/2013 HOUSTON RN, TOSHIA E 295. 70 P SCHIZO AFFECTIVE 03/09/2013 HOUSTON RN, TOSHIA E 295. 70 P SCHIZO AFFECTIVE 03/09/2013 HOUSTON RN, TOSHIA E 295. 70 P SCHIZO AFFECTIVE 03/09/2013 [place] RN, TOSHIA E 295. 70 P SCHIZO AFFECTIVE 03/09/2013 [facility], GWENDOLYN R 295.70 P SCHIZO AFFECTIVE 03/09/2013 KINGS WHOLESALER, ZAN M 295.70 P SCHIZO AFFECTIVE 03/09/2013 KINGS WHOLESALER, ZAN M 295.70 P SCHIZO AFFECTIVE 03/09/2013 CELSO RN, TOSHIA E 295. 70 P SCHIZO AFFECTIVE 03/20/2013 CHARLIE FRIAS APRN A 461.9 SINUSITIS ACUTE 03/20/2013 [facility] A 46 1.9 SINUSITIS ACUTE 03/20/2013 461.9 SINU SITIS ACUTE 03/20/2013 WOLF MCKEON APRNIDI A 46 1.9 SINUSITIS ACUTE 03/20/2013 [facility] A 46 1.9 SINUSITIS ACUTE 03/20/2013 WOLF MCKEON APRNIDI A 46 1.9 SINUSITIS ACUTE 03/20/2013 MARK QUINTANA DO 461.9 SINUSITIS ACUTE 03/20/2013 [facility] A 46 1.9 SINUSITIS ACUTE 03/20/2013 LORI MCKEON APRN A 46 1.9 SINUSITIS ACUTE 03/20/2013 [facility] 46 1.9 SINUSITIS ACUTE 03/20/2013 [facility], GL[facility] A 46 1.9 SINUSITIS ACUTE 03/20/2013 FILIPE LAGUNAS, JANNET 461.9 SINUSITIS ACUTE 03/20/2013 MAXINE CLEARY APRN 461.9 SINUSITIS ACUTE 03/20/2013 JANNET DENT MD 461.9 SINUSITIS ACUTE 03/20/2013 [facility], GLEN A 46 1.9 SINUSITIS ACUTE 03/20/2013 TRACIE RIVERA MD 461.9 SINUSITIS ACUTE 03/20/2013 [facility] 46 1.9 SINUSITIS ACUTE 03/20/2013 [facility], GLEN A 46 1.9 SINUSITIS ACUTE 03/20/2013 HEVER BOUCHER APRN 461 .9 SINUSITIS ACUTE 03/20/2013 MAXINE CLEARY APRN 461.9 SINUSITIS ACUTE 03/20/2013 CELSO RN, TOSHIA E 461. 9 SINUSITIS ACUTE 03/20/2013 CELSO RN, TOSHIA E 461. 9 SINUSITIS ACUTE 03/20/2013 CELSO RN, TOSHIA E 461. 9 SINUSITIS ACUTE 03/20/2013 CELSO RN, TOSHIA E 461. 9 SINUSITIS ACUTE 03/20/2013 CELSO RN, TOSHIA E 461. 9 SINUSITIS ACUTE 03/20/2013 CELSO RN, TOSHIA E 461. 9 SINUSITIS ACUTE 03/20/2013 CELSO RN, TOSHIA E 461. 9 SINUSITIS ACUTE 03/20/2013 CELSO RN, TOSHIA E 461. 9 SINUSITIS ACUTE 03/20/2013 CELSO RN, TOSHIA E 461. 9 SINUSITIS ACUTE 03/20/2013 SELWYN [facility], GWENDOLYN Jackson 461.9 SINUSITIS ACUTE 03/20/2013 ZAN AL 461.9 SINUSITIS ACUTE 03/20/2013 ZAN AL 461.9 SINUSITIS ACUTE 03/20/2013 CELSO NASH, TOSHIA E 461. 9 SINUSITIS ACUTE 04/03/2013 [facility] 314.01 ADHD COMBINED 04/03/2013 LINDA ENVIRONMENT[employer] SERVICES TECHNICIAN, LORI A 314.01 ADHD COMBINED 04/03/2013 MARIANO MARK WOODY Jenna 314.01 ADHD COMBINED 04/03/2013 [facility], GLEN A 314.01 ADHD COMBINED 04/03/2013 LINDA ACOSTAN, LORI A 314.01 ADHD COMBINED 04/03/2013 [facility], GLEN A 314.01 ADHD COMBINED 04/03/2013 [facility], [facility] A 314.01 ADHD COMBINED 04/03/2013 FILIPE LAGUNAS, JANNET 314.01 ADHD COMBINED 04/03/2013 EVIN CARTWRIGHT, MAXINE DACIA 314.01 ADHD COMBINED 04/03/2013 FILIPE LAGUNAS, JANNET 314.01 ADHD COMBINED 04/03/2013 [facility], GL[facility] A 314.01 ADHD COMBINED 04/03/2013 MIGUEL LAGUNAS, TRACIE 314.0 1 ADHD COMBINED 04/03/2013 [facility], [facility] A 314.01 ADHD COMBINED 04/03/2013 [facility], [facility] A 314.01 ADHD COMBINED 04/03/2013 HEVER BOUCHER APRN 314 .01 ADHD COMBINED 04/03/2013 MAXINE CLEARY APRN 314.01 ADHD COMBINED 04/03/2013 CELSO RN, TOSHIA E 314. 01 ADHD COMBINED 04/03/2013 CELSO RN, TOSHIA E 314. 01 ADHD COMBINED 04/03/2013 CELSO RN, TOSHIA E 314. 01 ADHD COMBINED 04/03/2013 CELSO RN, TOSHIA E 314. 01 ADHD COMBINED 04/03/2013 CELSO RN, TOSHIA E 314. 01 ADHD COMBINED 04/03/2013 CELSO RN, TOSHIA E 314. 01 ADHD COMBINED 04/03/2013 CELSO RN, TOSHIA E 314. 01 ADHD COMBINED 04/03/2013 CELSO RN, TOSHIA E 314. 01 ADHD COMBINED 04/03/2013 CELSO RN, TOSHIA E 314. 01 ADHD COMBINED 04/03/2013 [facility], GWENDOLYN R 314.01 ADHD COMBINED 04/03/2013 ZAN AL 314.01 ADHD COMBINED 04/03/2013 ZAN AL M 314.01 ADHD COMBINED 04/03/2013 CELSO NASH, TOSHIA E 314. 01 ADHD COMBINED 04/06/2013 LINDA CARTWRIGHT, LORI A V7 4.5 STD SCREEN 04/06/2013 [facility], GLEN A V7 4.5 STD SCREEN 04/06/2013 LINDA CARTWRIGHT, LORI A V7 4.5 STD SCREEN 04/06/2013 MARK QUINTANA DO V74.5 STD SCREEN 04/06/2013 [facility], GLEN A V7 4.5 STD SCREEN 04/06/2013 LINDA CARTWRIGHT, LORI A V7 4.5 STD SCREEN 04/06/2013 [facility], GLEN A V7 4.5 STD SCREEN 04/06/2013 [facility], GLEN A V7 4.5 STD SCREEN 04/06/2013 FILIPE LAGUNAS, JANNET V74.5 STD SCREEN 04/06/2013 EVIN CARTWRIGHT, MAXINE GUZMANH V74.5 STD SCREEN 04/06/2013 FILIPE LAGUNAS, JANNET V74.5 STD SCREEN 04/06/2013 [facility], GLEN A V7 4.5 STD SCREEN 04/06/2013 TRACIE RIVERA MD V74.5 STD SCREEN 04/06/2013 [facility], GLEN A V7 4.5 STD SCREEN 04/06/2013 [facility], GLEN A V7 4.5 STD SCREEN 04/06/2013 HEVER BOUCHER APRN V74 .5 STD SCREEN 04/06/2013 EVIN CARTWRIGHT, MAXINE GUZMANH V74.5 STD SCREEN 04/06/2013 CELSO NASH, TOSHIA Moore V74. 5 STD SCREEN 04/06/2013 CELSO NASH, TOSHIA Moore V74. 5 STD SCREEN 04/06/2013 CELSO NASH, TOSHIA Moore V74. 5 STD SCREEN 04/06/2013 CELSO NASH, TOSHIA E V74. 5 STD SCREEN 04/06/2013 CELSO NASH, TOSHIA E V74. 5 STD SCREEN 04/06/2013 CELSO NASH, TOSHIA E V74. 5 STD SCREEN 04/06/2013 CELSO NASH, TOSHIA E V74. 5 STD SCREEN 04/06/2013 CELSO NASH, TOSHIA E V74. 5 STD SCREEN 04/06/2013 CELSO NASH, TOSHIA E V74. 5 STD SCREEN 04/06/2013 [facility], GWENDOLYN Jackson V74.5 STD SCREEN 04/06/2013 ZAN AL V74.5 STD SCREEN 04/06/2013 ZAN AL V74.5 STD SCREEN 04/06/2013 TOSHIA HOUSTON RN E V74. 5 STD SCREEN 04/27/2013 LINDA CARTWRIGHT, LORI A 62 3.5 LEUKORRHEA NOT SPECIFIED INFECTIVE 04/27/2013 [facility], GLEN A 62 3.5 LEUKORRHEA NOT SPECIFIED INFECTIVE 04/27/2013 [facility] 62 3.5 LEUKORRHEA NOT SPECIFIED INFECTIVE 04/27/2013 JANNET DENT MD 623.5 LEUKORRHEA NOT SPECIFIED INFECTIVE 04/27/2013 MAXINE CLEARY APRN 623.5 LEUKORRHEA NOT SPECIFIED INFECTIVE 04/27/2013 JANNET DENT MD 623.5 LEUKORRHEA NOT SPECIFIED INFECTIVE 04/27/2013 [facility], GLEN A 62 3.5 LEUKORRHEA NOT SPECIFIED INFECTIVE 04/27/2013 TRACIE RIVERA MD 623.5 LEUKORRHEA NOT SPECIFIED INFECTIVE 04/27/2013 [facility] GL[facility] 62 3.5 LEUKORRHEA NOT SPECIFIED INFECTIVE 04/27/2013 [facility] GL[facility] 62 3.5 LEUKORRHEA NOT SPECIFIED INFECTIVE 04/27/2013 HEVER BOUCHER APRN 623 .5 LEUKORRHEA NOT SPECIFIED INFECTIVE 04/27/2013 MAXINE CLEARY APRN 623.5 LEUKORRHEA NOT SPECIFIED INFECTIVE 04/27/2013 TOSHIA HOUSTON RN E 623. 5 LEUKORRHEA NOT SPECIFIED INFECTIVE 04/27/2013 TOSHIA HOUSTON RN E 623. 5 LEUKORRHEA NOT SPECIFIED INFECTIVE 04/27/2013 TOSHIA HOUSTON RN E 623. 5 LEUKORRHEA NOT SPECIFIED INFECTIVE 04/27/2013 TOSHIA HOUSTON RN E 623. 5 LEUKORRHEA NOT SPECIFIED INFECTIVE 04/27/2013 TOSHIA HOUSTON RN E 623. 5 LEUKORRHEA NOT SPECIFIED INFECTIVE 04/27/2013 TOSHIA HOUSTON RN E 623. 5 LEUKORRHEA NOT SPECIFIED INFECTIVE 04/27/2013 TOSHIA HOUSTON RN E 623. 5 LEUKORRHEA NOT SPECIFIED INFECTIVE 04/27/2013 TOSHIA HOUSTON RN E 623. 5 LEUKORRHEA NOT SPECIFIED INFECTIVE 04/27/2013 CELSO NASH, TOSHIA E 623. 5 LEUKORRHEA NOT SPECIFIED INFECTIVE 04/27/2013 [facility], GWENDOLYN R 623.5 LEUKORRHEA NOT SPECIFIED INFECTIVE 04/27/2013 ZAN AL 623.5 LEUKORRHEA NOT SPECIFIED INFECTIVE 04/27/2013 ZAN AL 623.5 LEUKORRHEA NOT SPECIFIED INFECTIVE 04/27/2013 CELSO NASH, TOSHIA E 623. 5 LEUKORRHEA NOT SPECIFIED INFECTIVE 06/11/2013 JANNET DENT MD 784.1 THROAT PAIN 06/11/2013 EVIN CARTWRIGHT MAXINE PEDERSON 784.1 THROAT PAIN 06/11/2013 JANNET DENT MD 784.1 THROAT PAIN 06/11/2013 [facility], LGEN A 78 4.1 THROAT PAIN 06/11/2013 TRACIE RIVERA MD 784.1 THROAT PAIN 06/11/2013 [facility], GLEN A 300.02 AN GEN ANXIETY 06/11/2013 [facility], GLEN A 78 4.1 THROAT PAIN 06/11/2013 [facility], GLEN A 300.02 AN GEN ANXIETY 06/11/2013 [facility], GLEN A 78 4.1 THROAT PAIN 06/11/2013 HEVER BOUCHER APRN 300 .02 AN GEN ANXIETY 06/11/2013 HEVER BOUCHER APRN 784 .1 THROAT PAIN 06/11/2013 EVIN CARTWRIGHT MAXINE PEDERSON 300.02 AN GEN ANXIETY 06/11/2013 EVIN CARTWRIGHT MAXINE PEDERSON 784.1 THROAT PAIN 06/11/2013 TOSHIA HOUSTON RN 300. 02 AN GEN ANXIETY 06/11/2013 TOSHIA HOUSTON RN 784. 1 THROAT PAIN 06/11/2013 TOSHIA HOUSTON RN 300. 02 AN GEN ANXIETY 06/11/2013 TOSHIA HOUSTON RN 784. 1 THROAT PAIN 06/11/2013 TOSHIA HOUSTON RN E 300. 02 AN GEN ANXIETY 06/11/2013 TOSHIA HOUSTON RN E 784. 1 THROAT PAIN 06/11/2013 TOSHIA HOUSTON RN E 300. 02 AN GEN ANXIETY 06/11/2013 TOSHIA HOUSTON RN 784. 1 THROAT PAIN 06/11/2013 TOSHIA HOUSTON RN 300. 02 AN GEN ANXIETY 06/11/2013 TOSHIA HOUSTON RN 784. 1 THROAT PAIN 06/11/2013 TOSHIA HOUSTON RN 300. 02 AN GEN ANXIETY 06/11/2013 TOSHIA HOUSTON RN 784. 1 THROAT PAIN 06/11/2013 TOSHIA HOUSTON RN 300. 02 AN GEN ANXIETY 06/11/2013 CELSO NASH TOSHIA Moore 784. 1 THROAT PAIN 06/11/2013 CELSO NASH, TOSHIA Moore 300. 02 AN GEN ANXIETY 06/11/2013 TOSHIA HOUSTON RN 784. 1 THROAT PAIN 06/11/2013 TOSHIA HOUSTON RN 300. 02 AN GEN ANXIETY 06/11/2013 TOSHIA HOUSTON RN 784. 1 THROAT PAIN 06/11/2013 [facility], GWENDOLYN R 300.02 AN GEN ANXIETY 06/11/2013 [facility], GWENDOLYN R 784.1 THROAT PAIN 06/11/2013 ZAN AL 300.02 AN GEN ANXIETY 06/11/2013 ZAN AL M 784.1 THROAT PAIN 06/11/2013 ZAN AL 300.02 AN GEN ANXIETY 06/11/2013 ZAN AL 784.1 THROAT PAIN 06/11/2013 TOSHIA HOUSTON RN 300. 02 AN GEN ANXIETY 06/11/2013 TOSHIA HOUSTON RN 784. 1 THROAT PAIN 07/07/2013 TRACIE RIVERA MD 300.0 2 AN GEN ANXIETY 07/07/2013 [facility], GLEN A 300.02 AN GEN ANXIETY 07/07/2013 [facility], GLEN A 300.02 AN GEN ANXIETY 07/07/2013 HEVER BOUCHER APRN 300 .02 AN GEN ANXIETY 07/07/2013 MAXINE CLEARY APRN 300.02 AN GEN ANXIETY 07/07/2013 TOSHIA HOSUTON RN 300. 02 AN GEN ANXIETY 07/07/2013 TOSHIA HOUSTON RN 300. 02 AN GEN ANXIETY 07/07/2013 TOSHIA HOUSTON RN 300. 02 AN GEN ANXIETY 07/07/2013 TOSHIA HOUSTON RN 300. 02 AN GEN ANXIETY 07/07/2013 TOSHIA HOUSTON RN 300. 02 AN GEN ANXIETY 07/07/2013 TOSHIA HOUSTON RN 300. 02 AN GEN ANXIETY 07/07/2013 TOSHIA HOUSTON RN 300. 02 AN GEN ANXIETY 07/07/2013 TOSHIA HOUSTON RN 300. 02 AN GEN ANXIETY 07/07/2013 TOSHIA HOUSTON RN 300. 02 AN GEN ANXIETY 07/07/2013 [facility], GWENDOLYN R 300.02 AN GEN ANXIETY 07/07/2013 ZAN AL 300.02 AN GEN ANXIETY 07/07/2013 ZAN AL M 300.02 AN GEN ANXIETY 07/07/2013 CELSO NASH, TOSHIA E 300. 02 AN GEN ANXIETY 07/09/2013 KATH NIETO APRN Ot 845.00 SPRAIN OF ANKLE NOS 07/09/2013 KATH NIETO APRN Ot 959 .7 LOWER LEG INJURY NOS 07/09/2013 KATH NIETO ENVIRONMENTAL SERVICES TECHNICIAN Ot E000.8 OTHER EXTERNAL CAUSE STATUS 07/09/2013 KATH NIETO APRN Ot E849.0 ACCIDENT IN HOME 07/09/2013 KATH NIETO APRN Ot E880.1 FALL ON OR FROM SIDEWALK CURB 08/31/2013 SRINIVASA GARCIA DO Ot 916.4 INSECT BITE HIP LEG 08/31/2013 SRINIVASA GARCIA DO Ot E906.4 NONVENOM ARTHROPOD BITE 12/09/2013 TOSHIA HOUSTON RN E 296. 80 BIPOLAR DISORDER UNSPECIFIED 12/09/2013 TOSHIA HOUSTON RN 296. 80 BIPOLAR DISORDER UNSPECIFIED 12/09/2013 TOSHIA HOUSTON RN 296. 80 BIPOLAR DISORDER UNSPECIFIED 12/09/2013 TOSHIA HOUSTON RN 296. 80 BIPOLAR DISORDER UNSPECIFIED 12/09/2013 TOSHIA HOUSTON RN E 296. 80 BIPOLAR DISORDER UNSPECIFIED 12/09/2013 [facility], GWENDOLYN R 296.80 BIPOLAR DISORDER UNSPECIFIED 12/09/2013 ZAN AL 296.80 BIPOLAR DISORDER UNSPECIFIED 12/09/2013 ZAN AL 296.80 BIPOLAR DISORDER UNSPECIFIED 12/09/2013 CELSO NASH, TOSHIA E 296. 80 BIPOLAR DISORDER UNSPECIFIED 12/27/2013 LINO LIRA MD Ot 599. 0 URIN TRACT INFECTION NOS 12/27/2013 LINO LIRA MD Ot 780. 60 FEVER, UNSPECIFIED 04/15/2014 KATH NIETO APRN Ot 781 .0 ABN INVOLUN MOVEMENT NEC 04/15/2014 KATH NIETO ENVIRONMENTAL SERVICES TECHNICIAN Ot 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 06/06/2014 KATH NIETO APRN Ot 462 ACUTE PHARYNGITIS 09/24/2014 KATH NIETO APRN Ot 625 .3 DYSMENORRHEA 09/24/2014 KATH NIETO APRN Ot 789.09 [...] TO ROLLERSKATE 11/16/2014 KATH NIETO APRN Ot 599 .0 URIN TRACT INFECTION NOS 11/16/2014 KATH NIETO APRN Ot 787.01 NAUSEA WITH VOMITING 11/18/2014 JESSICA BRANHAM MD Ot 787.01 NAUSEA WITH VOMITING 11/18/2014 JESSICA BRANHAM MD Ot 787.03 VOMITING ALONE 07/18/2015 CHARITO LAGUNAS, GUICHO Wood Ot F17.210 NICOTINE DEPENDENCE, CIGARETTES, UNCOMPL 07/18/2015 CHARITO LAGUNAS, GUICHO Wood Ot F33 .2 MAJOR DEPRESSV DISORDER, RECURRENT SEVER 07/18/2015 CHARITO LAGUNAS, GUICHO Wood Ot T43.221A POISN BY SELECTIVE SEROTONIN REUPTAKE IN 07/18/2015 DIAMOND AVINA EMPLOYEE RELATIONS DIRECTOR Ot M23.232 DERANG OF MEDIAL MENISCUS DUE TO OLD TEA 07/29/2015 DIAMOND AVINA Ot M23.232 DERANG OF MEDIAL MENISCUS DUE TO OLD TEA 10/27/2015 KATH NIETO APRN Ot F41 .9 ANXIETY DISORDER, UNSPECIFIED 10/28/2015 KATH NIETO APRN Ot F41 .9 ANXIETY DISORDER, UNSPECIFIED 11/09/2015 MITCH BYRD DO Ot F12.10 CANNABIS ABUSE, UNCOMPLICATED 11/09/2015 MITCH BYRD DO Ot F17.210 NICOTINE DEPENDENCE, CIGARETTES, UNCOMPL 11/09/2015 MITCH BYRD DO Ot N39.0 URINARY TRACT INFECTION, SITE NOT SPECIF 11/09/2015 MITCH BYRD DO Ot R10.11 RIGHT UPPER QUADRANT PAIN 11/10/2015 MITCH BYRD DO Ot F12.10 CANNABIS ABUSE, UNCOMPLICATED 11/10/2015 ROCHELLE [...] 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 05/11/2016 DIAMOND AVINA EMPLOYEE RELATIONS DIRECTOR Ot M23.232 DERANG OF MEDIAL MENISCUS DUE TO OLD TEA 05/11/2016 KATH NIETO APRN Ot R23 .8 OTHER SKIN CHANGES 05/13/2016 KATH NIETO APRN Ot R23 .8 OTHER SKIN CHANGES 06/26/2017 KATH NIETO APRN Ot F17.210 NICOTINE DEPENDENCE, CIGARETTES, UNCOMPL 06/26/2017 KATH NIETO APRN Ot F31 .9 BIPOLAR DISORDER, UNSPECIFIED 06/26/2017 KATH NIETO APRN Ot F41 .9 ANXIETY DISORDER, UNSPECIFIED 06/26/2017 KATH NIETO APRN Ot F90 .9 ATTENTION-DEFICIT HYPERACTIVITY DISORDER 06/26/2017 KATH NIETO APRN Ot R11 .2 NAUSEA WITH VOMITING, UNSPECIFIED 06/26/2017 KATH NIETO APRN Ot R53.81 OTHER MALAISE 06/26/2017 KATH NIETO APRN Ot Z86.14 PERSONAL HISTORY OF METHICILLIN RESIS ST 06/26/2017 KATH NIETO APRN Ot Z88 .8 ALLERGY STATUS TO OTH DRUG/MEDS/BIOL SUB 06/28/2017 KATH NIETO APRN Ot F17.210 NICOTINE DEPENDENCE, CIGARETTES, UNCOMPL 06/28/2017 KATH NIETO APRN Ot F31 .9 BIPOLAR DISORDER, UNSPECIFIED 06/28/2017 KATH NIETO APRN Ot F41 .9 ANXIETY DISORDER, UNSPECIFIED 06/28/2017 KATH NIETO APRN Ot F90 .9 ATTENTION-DEFICIT HYPERACTIVITY DISORDER 06/28/2017 KATH NIETO APRN Ot R11 .2 NAUSEA WITH VOMITING, UNSPECIFIED 06/28/2017 KATH NIETO APRN Ot R53.81 OTHER MALAISE 06/28/2017 KATH NIETO APRN Ot Z86.14 PERSONAL HISTORY OF METHICILLIN RESIS ST 06/28/2017 KATH NIETO APRN Ot Z88 .8 ALLERGY STATUS TO OTH DRUG/MEDS/BIOL SUB 11/14/2017 Ot 389.9 11/14/2017 Ot 784.2 11/14/2017 Ot 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 11/14/2017 DIAMOND AVINA [facility] Ot M23.232 DERANG OF MEDIAL MENISCUS DUE TO OLD TEA 04/11/2018 TUAN MAHAJAN Ot D64.9 ANEMIA, UNSPECIFIED 04/11/2018 TUAN MAHAJAN Ot F12.90 CANNABIS USE, UNSPECIFIED, UNCOMPLICATED 04/11/2018 TUAN MAHAJAN Ot F17.210 NICOTINE DEPENDENCE, CIGARETTES, UNCOMPL 04/11/2018 TUAN MAHAJAN Ot F25.9 SCHIZOAFFECTIVE DISORDER, UNSPECIFIED 04/11/2018 TUAN MAHAJAN Ot F31.9 BIPOLAR DISORDER, UNSPECIFIED 04/11/2018 TUAN MAHAJAN Ot F41.9 ANXIETY DISORDER, UNSPECIFIED 04/11/2018 TUAN MAHAJAN Ot F43.10 POST-TRAUMATIC STRESS DISORDER, UNSPECIF 04/11/2018 TUAN MAHAJAN Ot F90.9 ATTENTION-DEFICIT HYPERACTIVITY DISORDER 04/11/2018 TUAN MAHAJAN Ot F98.8 OTH BEHAV/EMOTN DISORD W ONSET USLY OCCU 04/11/2018 TUAN MAHAJAN Ot T50.991A POISONING BY OTH DRUG/MEDS/BIOL SUBST, A 04/11/2018 TUAN MAHAJAN Ot Z86.14 PERSONAL HISTORY OF METHICILLIN RESIS ST 04/11/2018 TUAN MAHAJAN Ot Z88.8 ALLERGY STATUS TO OTH DRUG/MEDS/BIOL SUB 04/11/2018 TUAN MAHAJAN Ot Z98.890 OTHER SPECIFIED POSTPROCEDURAL STATES 05/30/2018 KATH NIETO APRN Ot F17.210 NICOTINE DEPENDENCE, CIGARETTES, UNCOMPL 05/30/2018 KATH NIETO APRN Ot F31 .9 BIPOLAR DISORDER, UNSPECIFIED 05/30/2018 KATH NIETO APRN Ot F41 .9 ANXIETY DISORDER, UNSPECIFIED 05/30/2018 KATH NIETO APRN Ot F90 .9 ATTENTION-DEFICIT HYPERACTIVITY DISORDER 05/30/2018 KATH NIETO APRN Ot R11 .2 NAUSEA WITH VOMITING, UNSPECIFIED 05/30/2018 KATH NIETO APRN Ot R53.81 OTHER MALAISE 05/30/2018 KATH NIETO APRN Ot Z86.14 PERSONAL HISTORY OF METHICILLIN RESIS ST 05/30/2018 KATH NIETO APRN Ot Z88 .8 ALLERGY STATUS TO OTH DRUG/MEDS/BIOL SUB 07/11/2018 JESSICA BRANHAM MD Ot D64.9 ANEMIA, UNSPECIFIED 07/11/2018 JESSICA BRANHAM MD Ot F17.210 NICOTINE DEPENDENCE, CIGARETTES, UNCOMPL 07/11/2018 JESSICA BRANHAM MD Ot F20.9 SCHIZOPHRENIA, UNSPECIFIED 07/11/2018 JESSICA BRANHAM MD Ot F31.9 BIPOLAR DISORDER, UNSPECIFIED 07/11/2018 JESSICA BRANHAM MD Ot F41.9 ANXIETY DISORDER, UNSPECIFIED 07/11/2018 JESSICA BRANHAM MD Ot F43.10 POST-TRAUMATIC STRESS DISORDER, UNSPECIF 07/11/2018 JESSICA BRANHAM MD Ot F90.9 ATTENTION-DEFICIT HYPERACTIVITY DISORDER 07/11/2018 JESSICA BRANHAM MD Ot F98.8 OT BEHAV/EMOTN DISORD W ONSET USLY OCCU 07/11/2018 JESSICA BRANHAM MD Ot N39.0 URINARY TRACT INFECTION, SITE NOT SPECIF 07/11/2018 JESSICA BRANHAM MD Ot R30.0 DYSURIA 07/11/2018 JESSICA BRANHAM MD Ot Z86.14 PERSONAL HISTORY OF METHICILLIN RESIS ST 07/11/2018 JESSICA BRANHAM MD Ot Z87.440 PERSONAL HISTORY OF URINARY (TRACT) INFE 07/11/2018 JESSICA BRANHAM MD Ot Z88.8 ALLERGY STATUS TO OTH DRUG/MEDS/BIOL SUB 08/01/2018 Ot 389.9 08/01/2018 Ot 784.2 08/01/2018 Ot 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 08/01/2018 DIAMOND AVINA Ot M23.232 DERANG OF MEDIAL MENISCUS DUE TO OLD TEA 03/02/2019 GUICHO MCNEILL MD Ot O99.89 OT DISEASES AND CONDITIONS COMPL PREG/C 03/02/2019 GUICHO MCNEILL MD Ot R10 .9 UNSPECIFIED ABDOMINAL PAIN 03/02/2019 GUICHO MCNEILL MD Ot Z3A.21 21 WEEKS GESTATION OF 03/02/2019 DIAMOND AVINA Ot M23.232 DERANG OF MEDIAL MENISCUS DUE TO OLD TEA 03/05/2019 GUICHO MCNEILL MD Ot O99.89 OT DISEASES AND CONDITIONS COMPL PREG/C 03/05/2019 GUICHO MCNEILL MD Ot R10 .9 UNSPECIFIED ABDOMINAL PAIN 03/05/2019 GUICHO MCNEILL MD Ot Z3A.21 21 WEEKS GESTATION OF 04/23/2019 DIAMOND AVINA Ot M23.232 DERANG OF MEDIAL MENISCUS DUE TO OLD TEA 04/24/2019 RUBEN WRIGHT MD Ot O62.9 ABNORMALITY OF FORCES OF LABOR, UNSPECIF 04/24/2019 RUBEN WRIGHT MD Ot Z3A.0 0 WEEKS OF GESTATION OF NOT SPEC 05/13/2019 MARIANO WOODY MARK K Ot O99.89 OT DISEASES AND CONDITIONS COMPL PREG/C 05/13/2019 QUINTANA DO MARK K Ot R11.0 NAUSEA 05/13/2019 NATALI QUINTANA DOA Jenna Ot R51 HEADACHE 05/13/2019 NATALI QUINTANA DOA K Ot Z3A.31 31 WEEKS GESTATION OF 06/10/2019 MARIANO WOODY MARK K Ot Z04.3 ENCOUNTER FOR EXAM AND OBSERVATION FOLLO 06/10/2019 NATALI QUINTANA DOA K Ot Z3A.35 35 WEEKS GESTATION OF 06/11/2019 NATALI QUINTANA DOA K Ot Z04.3 ENCOUNTER FOR EXAM AND OBSERVATION FOLLO 06/11/2019 MARK QUINTANA DO Ot Z3A.35 35 WEEKS GESTATION OF Procedures Code Description Performed By Per formed On Podiatry W Laly king 02/13/[address] S INUS W/O CONTRAST 02/19/2012 ISSAC MOORE 02/19/2012 65968 PSYC H IND W/MED CK 20 04/17/2012 68313 PSYC H DIAGNOSTIC EVALUATION 06/11/2012 49260 PSYT X PT&/FAMILY 45 MINUTES 08/01/2012 49801 PSYT X PT&/FAMILY 30 MINUTES 08/29/2012 51651 PSYT X PT&/FAMILY 45 MINUTES 01/27/2013 56109 URIN E DRUG SCREEN (IN-HOUSE) 02/05/2013 65047 PSYC H DIAGNOSTIC EVALUATION 02/11/2013 76754 PSYT X PT&/FAMILY 45 MINUTES 03/27/2013 81357 PREG MELIDA TEST, URINE (IN- HOUSE) 04/06/2013 67843 GC/C HLAM URINE (STATE) 04/08/2013 69301 PSYT X PT&/FAMILY 30 MINUTES 04/10/2013 25292 PSYT X PT&/FAMILY 45 MINUTES 04/27/2013 34816 TRIC HOMONAS (IN-HOUSE) 04/27/2013 87888 CULT URE UROGENITAL 04/29/2013 97387 PSYT X PT&/FAMILY 30 MINUTES 05/14/2013 50586 PSYT X PT&/FAMILY 30 MINUTES 06/09/2013 90179 XRAY SOFT TISSUE NECK 1 OR MORE VIEWS 06/11/[address] N KATARZYNA, SOFT TISSUE NECK W/DYE 06/11/2013 ISSAC VELAZQUEZ 06/11/2013 96259 PSYT X PT&/FAMILY 30 MINUTES 07/06/2013 01720 PSYT X CRISIS INITIAL 60 MIN 07/07/2013 06598 PSYT X CRISIS EA ADDL 30 MIN 07/07/2013 65477 PSYT X PT&/FAMILY 30 MINUTES 07/16/2013 S0280 HEAL TH PROMOTION 11/11/2013 S0280 HEAL TH PROMOTION 11/12/2013 S0280 HEAL TH PROMOTION 11/12/2013 S0281 CARE COORDINATION 11/18/2013 S0280 HEAL TH PROMOTION 11/30/2013 S0280 COMP REHENSIVE CARE MANAGEMENT 12/24/2013 S0281 CARE COORDINATION 12/24/2013 S0281 CARE COORDINATION 12/24/2013 27297 URIN E DRUG SCREEN (IN-HOUSE) 12/25/2013 S0280 DANG E[facility] AND FAMILY SUPPORT 12/30/2013 63171 PSYC H DIAGNOSTIC EVALUATION 12/30/2013 S0281 CARE COORDINATION 01/01/2014 S0280 DANG ENT AND FAMILY SUPPORT 01/01/2014 S0280 [facility] PROMOTION 01/27/2014 55645 PSYT X PT&/FAMILY 45 MINUTES 03/03/2014 S0280 [facility] PROMOTION 03/03/2014 S0280 [facility] PROMOTION 05/31/2014 Results Test Result Range Urine Culture, Routine - 11/08/15 17:38 Urine Culture, Routine Note Urine drug screening test - 11/09/15 19: 37 Urine phencyclidine detection by screening method NEGATIVE NEGATIVE Urine benzodiazepines detection by screening method POSITIVE NEGATIVE Urine cocaine detection NEGATIVE NEGATI VE Urine amphetamines detection by screening method N EGATIVE NEGATIVE Urine methamphetamine detection by screening method NEGATIVE NEGATIVE Urine cannabinoids detection by screening method P OSITIVE NEGATIVE Urine opiates detection by screening method NEGATI VE NEGATIVE Urine barbiturates detection NEGATIVE N EGATIVE Screening urine tricyclic antidepressants detection NEGATIVE NEGATIVE Urine methadone detection by screening method NEGA TIVE NEGATIVE Urine oxycodone detection NEGATIVE NEGA TIVE Urine propoxyphene detection NEGATIVE N EGATIVE Urine buprenophrine screen NEGATIVE NEG ATIVE Complete urinalysis with reflex to cultu re - 11/09/15 19:37 Urine color determination YELLOW NRG Urine clarity determination SLIGHTLY CLOUDY NRG Urine pH measurement by test strip 6 5-9 Specific gravity of urine by test strip 1.020 1.016-1.022 Urine protein assay by test strip, semi-quantitative 2+ NEGATIVE Urine glucose detection by automated test strip NE GATIVE NEGATIVE Erythrocytes detection in urine sediment by light micr oscopy 1+ NEGATIVE Urine ketones detection by automated test strip NE GATIVE NEGATIVE Urine nitrite detection by test strip NEGATIVE NEGATIVE Urine total bilirubin detection by test strip NEGA TIVE NEGATIVE Urine urobilinogen measurement by automated test strip (mass/volume) NORMAL NORMAL Urine leukocyte esterase detection by dipstick 3+ NEGATIVE Automated urine sediment erythrocyte cou nt by microscopy (number/high power field) [HPF] NRG Automated urine sediment leukocyte count by microscopy (number/high power field) TNTC NRG Bacteria detection in urine sediment by light microsco py MODERATE NRG Squamous epithelial cells detection in u rine sediment by light microscopy 10-25 NRG Crystals detection in urine sediment by light microsco py NONE NRG Casts detection in urine sediment by light microscopy NONE NRG Mucus detection in urine sediment by light microscopy LARGE NRG Complete urinalysis with reflex to culture YES NRG Bacterial urine culture - 11/09/15 19:37 URINE CULTURE RESULTS >100,000/ML NRG CBC With Differential/Platelet - 6 17:45 WBC 7.9 x10E3/uL 3.4-10.8 RBC 4.35 x10E6/uL 3.77-5.28 Hemoglobin 12.5 g/dL 11.1-15.9 Hematocrit 38.6 % 34.0-46.6 MCV 89 fL 79-97 MCH 28.7 pg 26.6-33.0 MCHC 32.4 g/dL 31.5-35.7 RDW 15.2 % 12.3-15.4 Platelets 311 x10E3/uL 150-379 Neutrophils 54 % Lymphs 31 % Monocytes 8 % Eos 7 % Basos 0 % Neutrophils (Absolute) 4.3 x10E3/uL 1.4- 7.0 Lymphs (Absolute) 2.4 x10E3/uL 0.7-3.1 Monocytes(Absolute) 0.6 x10E3/uL 0.1-0.9 Eos (Absolute) 0.5 x10E3/uL 0.0-0.4 Baso (Absolute) 0.0 x10E3/uL 0.0-0.2 Immature Granulocytes 0 % Immature Grans (Abs) 0.0 x10E3/uL 0.0-0. 1 Vitamin D, 25-Hydroxy - 01/31/16 17:45 Vitamin D, 25-Hydroxy 42.6 ng/mL 30.0-10 0.0 hCG,Beta Subunit,Qual,Serum - 01/31/16 1 7:45 hCG,Beta Subunit,Qual,Serum Negative mIU/mL Negative <6 Prolactin - 03/02/16 14:52 Prolactin 78.9 ng/mL 4.8-23.3 Complete blood count (CBC) with automate d white blood cell (WBC) differential - 06/26/17 20:24 Blood leukocytes automated count (number/volume) 10.4 10*3/uL 4.3-11.0 Blood erythrocytes automated count (number/volume) 4.32 10*6/uL 4.35-5.85 Venous blood hemoglobin measurement (mass/volume) 12.7 g/dL 11.5-16.0 Blood hematocrit (volume fraction) 37 % 35-52 Automated erythrocyte mean corpuscular volume 85 [ foz_us] 80-99 Automated erythrocyte mean corpuscular h emoglobin (mass per erythrocyte) 29 pg 25-34 Automated erythrocyte mean corpuscular h emoglobin concentration measurement (mass/volume) 35 g/dL 32-36 Automated erythrocyte distribution width ratio 13. 9 % 10.0- 14.5 Automated blood platelet count (count/volume) 293 10*3/uL [...] 10*3 1.0-4.0 Blood monocytes automated count (number/volume) 0. 5 10*3 0.0-1.0 Automated eosinophil count 0.3 10*3/uL 0 .0-0.3 Automated blood basophil count (count/volume) 0.0 10*3/uL 0.0-0.1 Comprehensive metabolic panel - 06/26/17 20:24 Serum or plasma sodium measurement (moles/volume) 139 mmol/L 135-145 Serum or plasma potassium measurement (moles/volume) 3.5 mmol/L 3.6-5.0 Serum or plasma chloride measurement (moles/volume) 108 mmol/L 98-107 Carbon dioxide 20 mmol/L 21-32 Serum or plasma anion gap determination (moles/volume) 11 mmol/L 5-14 Serum or plasma urea nitrogen measurement (mass/volume ) 16 mg/dL 7-18 Serum or plasma creatinine measurement (mass/volume) 0.73 mg/dL 0.60-1.30 Serum or plasma urea nitrogen/creatinine mass ratio 22 NRG Serum or plasma creatinine measurement w ith calculation of estimated glomerular filtration rate > NRG Serum or plasma glucose measurement (mass/volume) 80 mg/dL 70-105 Serum or plasma calcium measurement (mass/volume) 9.4 mg/dL 8.5-10.1 Serum or plasma total bilirubin measurement (mass/volu me) 0.3 mg/dL 0.1-1.0 Serum or plasma alkaline phosphatase kristy surement (enzymatic activity/volume) 80 U/L 40-136 Serum or plasma aspartate aminotransfera se measurement (enzymatic activity/volume) 15 U/L 5-34 Serum or plasma alanine aminotransferase measurement (enzymatic activity/volume) 7 U/L 0-55 Serum or plasma protein measurement (mass/volume) 7.9 g/dL 6.4-8.2 Serum or plasma albumin measurement (mass/volume) 4.7 g/dL 3.2-4.5 Complete urinalysis with reflex to cultu re - 06/26/17 21:10 Urine color determination YELLOW NRG Urine clarity determination CLEAR NR G Urine pH measurement by test strip 5 5-9 Specific gravity of urine by test strip 1.020 1.016-1.022 Urine protein assay by test strip, semi-quantitative NEGATIVE NEGATIVE Urine glucose detection by automated test strip NE GATIVE NEGATIVE Erythrocytes detection in urine sediment by light micr oscopy NEGATIVE NEGATIVE Urine ketones detection by automated test strip 3+ NEGATIVE Urine nitrite detection by test strip NEGATIVE NEGATIVE Urine total bilirubin detection by test strip NEGA TIVE NEGATIVE Urine urobilinogen measurement by automated test strip (mass/volume) 1 mg/dL NORMAL Urine leukocyte esterase detection by dipstick 1+ NEGATIVE Automated urine sediment erythrocyte cou nt by microscopy (number/high power field) NONE NRG Automated urine sediment leukocyte count by microscopy (number/high power field) [HPF] NRG Bacteria detection in urine sediment by light microsco py FEW NRG Squamous epithelial cells detection in u rine sediment by light microscopy 2-5 NRG Crystals detection in urine sediment by light microsco py NONE NRG Casts detection in urine sediment by light microscopy NONE NRG Mucus detection in urine sediment by light microscopy SMALL NRG Complete urinalysis with reflex to culture YES NRG Urine Trichomonas species detection by light microscop y FEW NRG Bacterial urine culture - 06/26/17 21:10 Bacterial urine culture [id number] NRG COLONY COUNT >100,000/ML NRG FTX;REPORTABLE PLUS, NRG URINE CULTURE RESULTS <10,000/ML NRG FREE TEXT ENTRY 2 MIXED GRAM POSITIVES <10,000/ML NRG CULTURE, GENITAL - 07/08/17 16:23 CULTURE, GENITAL SEE NOTE NRG Urine beta human chorionic gonadotropin (hCG) measurement - 04/11/18 18:04 Urine beta human chorionic gonadotropin (hCG) measurem ent NEGATIVE NEGATIVE Complete urinalysis with reflex to cultu re - 04/11/18 18:04 Urine color determination YELLOW NRG Urine clarity determination CLEAR NR G Urine pH measurement by test strip 6 5-9 Specific gravity of urine by test strip 1.020 1.016-1.022 Urine protein assay by test strip, semi-quantitative 1+ NEGATIVE Urine glucose detection by automated test strip NE GATIVE NEGATIVE Erythrocytes detection in urine sediment by light micr oscopy NEGATIVE NEGATIVE Urine ketones detection by automated test strip NE GATIVE NEGATIVE Urine nitrite detection by test strip NEGATIVE NEGATIVE Urine total bilirubin detection by test strip NEGA TIVE NEGATIVE Urine urobilinogen measurement by automated test strip (mass/volume) 1 mg/dL NORMAL Urine leukocyte esterase detection by dipstick 3+ NEGATIVE Automated urine sediment erythrocyte cou nt by microscopy (number/high power field) NONE NRG Automated urine sediment leukocyte count by microscopy (number/high power field) [HPF] NRG Bacteria detection in urine sediment by light microsco py MODERATE NRG Squamous epithelial cells detection in u rine sediment by light microscopy 10-25 NRG Crystals detection in urine sediment by light microsco py NONE NRG Casts detection in urine sediment by light microscopy NONE NRG Mucus detection in urine sediment by light microscopy LARGE NRG Complete urinalysis with reflex to culture YES NRG Urine drug screening test - 04/11/18 18: 04 Urine phencyclidine detection by screening method NEGATIVE NEGATIVE Urine benzodiazepines detection by screening method NEGATIVE NEGATIVE Urine cocaine detection NEGATIVE NEGATI VE Urine amphetamines detection by screening method N EGATIVE NEGATIVE Urine methamphetamine detection by screening method NEGATIVE NEGATIVE Urine cannabinoids detection by screening method P OSITIVE NEGATIVE Urine opiates detection by screening method NEGATI VE NEGATIVE Urine barbiturates detection NEGATIVE N EGATIVE Screening urine tricyclic antidepressants detection NEGATIVE NEGATIVE Urine methadone detection by screening method NEGA TIVE NEGATIVE Urine oxycodone detection NEGATIVE NEGA TIVE Urine propoxyphene detection NEGATIVE N EGATIVE Bacterial urine culture - 04/11/18 18:04 Bacterial urine culture SEE REPORT NRG COLONY COUNT . NRG Complete blood count (CBC) with automate d white blood cell (WBC) differential - 04/11/18 18:15 Blood leukocytes automated count (number/volume) 7.9 10*3/uL 4.3-11.0 Blood erythrocytes automated count (number/volume) 4.49 10*6/uL 4.35-5.85 Venous blood hemoglobin measurement (mass/volume) 13.2 g/dL 11.5-16.0 Blood hematocrit (volume fraction) 40 % 35-52 Automated erythrocyte mean corpuscular volume 88 [ foz_us] 80-99 Automated erythrocyte mean corpuscular h emoglobin (mass per erythrocyte) 29 pg 25-34 Automated erythrocyte mean corpuscular h emoglobin concentration measurement (mass/volume) 33 g/dL 32-36 Automated erythrocyte distribution width ratio 13. 9 % 10.0- 14.5 Automated blood platelet count (count/volume) 282 10*3/uL 130-400 Automated blood platelet mean volume measurement 9.5 [foz_us] 7.4-10.4 Automated blood neutrophils/100 leukocytes 58 % 42-75 Automated blood lymphocytes/100 leukocytes 31 % 12-44 Blood monocytes/100 leukocytes 8 % 0-12 Automated blood eosinophils/100 leukocytes 3 % 0-10 Automated blood basophils/100 leukocytes 0 % 0-10 Blood neutrophils automated count (number/volume) 4.6 10*3 1.8-7.8 Blood lymphocytes automated count (number/volume) 2.4 10*3 1.0-4.0 Blood monocytes automated count (number/volume) 0. 6 10*3 0.0-1.0 Automated eosinophil count 0.2 10*3/uL 0 .0-0.3 Automated blood basophil count (count/volume) 0.0 10*3/uL 0.0-0.1 Comprehensive metabolic panel - 04/11/18 18:15 Serum or plasma sodium measurement (moles/volume) 138 mmol/L 135-145 Serum or plasma potassium measurement (moles/volume) 3.6 mmol/L 3.6-5.0 Serum or plasma chloride measurement (moles/volume) 105 mmol/L 98-107 Carbon dioxide 23 mmol/L 21-32 Serum or plasma anion gap determination (moles/volume) 10 mmol/L 5-14 Serum or plasma urea nitrogen measurement (mass/volume ) 9 mg/dL 7-18 Serum or plasma creatinine measurement (mass/volume) 0.70 mg/dL 0.60-1.30 Serum or plasma urea nitrogen/creatinine mass ratio 13 NRG Serum or plasma creatinine measurement w ith calculation of estimated glomerular filtration rate > NRG Serum or plasma glucose measurement (mass/volume) 86 mg/dL 70-105 Serum or plasma calcium measurement (mass/volume) 9.4 mg/dL 8.5-10.1 Serum or plasma total bilirubin measurement (mass/volu me) 0.5 mg/dL 0.1-1.0 Serum or plasma alkaline phosphatase kristy surement (enzymatic activity/volume) 73 U/L 40-136 Serum or plasma aspartate aminotransfera se measurement (enzymatic activity/volume) 18 U/L 5-34 Serum or plasma alanine aminotransferase measurement (enzymatic activity/volume) 11 U/L 0-55 Serum or plasma protein measurement (mass/volume) 7.6 g/dL 6.4-8.2 Serum or plasma albumin measurement (mass/volume) 4.6 g/dL 3.2-4.5 Serum or plasma salicylates measurement (mass/volume) - 04/11/18 18:15 Serum or plasma salicylates measurement (mass/volume) < mg/dL 5.0-20.0 Serum or plasma acetaminophen measuremen t (mass/volume) - 04/11/18 18:15 Serum or plasma acetaminophen measurement (mass/volume ) < ug/mL 10-30 Serum or plasma ethanol measurement (mas s/volume) - 04/11/18 18:15 Serum or plasma ethanol measurement (mass/volume) < mg/dL <10 Serum or plasma thyrotropin measurement by detection limit <=0.05 miu/l (units/volume) - 04/11/18 18:15 Serum or plasma thyrotropin measurement by detection limit <=0.05 miu/l (units/volume) 1.19 u[iU]/mL 0.35-4.94 Complete urinalysis with reflex to cultu re - 07/11/18 02:11 Urine color determination YELLOW NRG Urine clarity determination SLIGHTLY CLOUDY NRG Urine pH measurement by test strip 6 5-9 Specific gravity of urine by test strip 1.020 1.016-1.022 Urine protein assay by test strip, semi-quantitative 4+ NEGATIVE Urine glucose detection by automated test strip NE GATIVE NEGATIVE Erythrocytes detection in urine sediment by light micr oscopy 5+ NEGATIVE Urine ketones detection by automated test strip 1+ NEGATIVE Urine nitrite detection by test strip POSITIVE NEGATIVE Urine total bilirubin detection by test strip NEGA TIVE NEGATIVE Urine urobilinogen measurement by automated test strip (mass/volume) 1 mg/dL NORMAL Urine leukocyte esterase detection by dipstick 3+ NEGATIVE Automated urine sediment erythrocyte cou nt by microscopy (number/high power field) [HPF] NRG Automated urine sediment leukocyte count by microscopy (number/high power field) TNTC NRG Bacteria detection in urine sediment by light microsco py LARGE NRG Squamous epithelial cells detection in u rine sediment by light microscopy 10-25 NRG Crystals detection in urine sediment by light microsco py NONE NRG Casts detection in urine sediment by light microscopy NONE NRG Mucus detection in urine sediment by light microscopy NEGATIVE NRG Complete urinalysis with reflex to culture YES NRG Bacterial urine culture - 07/11/18 02:11 Bacterial urine culture [id number] NRG COLONY COUNT >100,000/ML NRG FTX;REPORTABLE SUSCEPTIBILITY REPORTED 07/13/18 10: 05 NRG RML Sensitivity Panel - 07/11/18 02:11 Gentamicin susceptibility test by minimum inhibitory c oncentration <= NRG Trimethoprim/sulfamethoxazole susceptibi lity test by minimum inhibitoryconcentration <= NRG Levofloxacin susceptibility test by minimum inhibitory concentration <= NRG Ampicillin susceptibility test by minimum inhibitory c oncentration <= NRG Cefazolin susceptibility test by minimum inhibitory co ncentration <= NRG Ceftriaxone susceptibility test by minimum inhibitory concentration <= NRG Ciprofloxacin susceptibility test by minimum inhibitor y concentration <= NRG Meropenem susceptibility test by minimum inhibitory co ncentration <= NRG Nitrofurantoin susceptibility test by mi nimum inhibitory concentration <= NRG Amoxicillin and clavulanate potassium susc ANNE <= NRG CULTURE, GENITAL - 11/14/18 13:23 CULTURE, GENITAL SEE NOTE NRG SUREPATH PAP RFX HPV mRNA E6/E7 - 13:23 CLINICAL INFORMATION: NRG LMP: 10/06/18 NRG PREV. PAP: NRG PREV. BX: NRG SOURCE: Cervix NRG STATEMENT OF ADEQUACY: NRG INTERPRETATION/RESULT: NRG POSTAL SUPERINTENDENT: NRG INFECTION: NRG COMMENT NRG ANTIBODY SCREEN - 11/27/18 13:47 ANTIBODY SCREEN, RBC W/REFL ID, TITER AND AG NO ANTIBODIES DETECTED NRG TSH - 11/27/18 13:47 TSH 0.55 mIU/L NRG RUBELLA IMMUNE STATUS - 11/27/18 13:47 RUBELLA ANTIBODY (IGG) 3.25 index NRG CULTURE, URINE - 11/27/18 13:47 CULTURE, URINE, ROUTINE SEE NOTE NRG PENTA SCREEN - 02/17/19 15:10 Maternal Weight 127 lbs NRG Est'd Date of Delivery 07/18/2019 NRG MALDONADO Determined by ULTRASOUND NRG Mother's Ethnic Origin NRG Number of Fetuses 1 NRG Insulin Depend Diabetic NO NRG Repeat Specimen NO NRG Hx Of Neural Tube Defects NO NRG Prev Down Synd NO NRG Donor Egg NO NRG Donor Age: Egg Retrieval NOT GIVEN NRG Cigarette smoker NOT GIVEN NRG INTERPRETATION: SEE NOTE NRG Risk for ONTD <1:5000 NRG Age Risk Down Syndrome 1:1144 NRG ASHOK Down Syndrome Risk <1:5000 <1:270 ASHOK Trisomy 18 Risk <1:5000 <1:100 Calc'd Gestational Age 18.4 NRG AFP, Serum 84.0 ng/mL NRG AFP MoM 1.47 NRG hCG, Serum 23.3 IU/mL NRG hCG MoM 0.82 NRG Estriol, Free 1.73 ng/mL NRG Estriol MoM 1.22 NRG Inhibin A, Dimeric 324 pg/mL NRG Inhibin A MoM 1.86 NRG h-hCG, Serum 25.5 mcg/L NRG h-hCG MoM 1.30 NRG Date of 1995 NRG Collection Date 02/17/2019 NRG Complete urinalysis with reflex to cultu re - 03/02/19 00:45 Urine color determination YELLOW NRG Urine clarity determination CLEAR NR G Urine pH measurement by test strip 6.5 5-9 Specific gravity of urine by test strip 1.025 1.016-1.022 Urine protein assay by test strip, semi-quantitative NEGATIVE NEGATIVE Urine glucose detection by automated test strip NE GATIVE NEGATIVE Erythrocytes detection in urine sediment by light micr oscopy NEGATIVE NEGATIVE Urine ketones detection by automated test strip NE GATIVE NEGATIVE Urine nitrite detection by test strip NEGATIVE NEGATIVE Urine total bilirubin detection by test strip NEGA TIVE NEGATIVE Urine urobilinogen measurement by automated test strip (mass/volume) 0.2 mg/dL < = 1.0 Urine leukocyte esterase detection by dipstick NEG ATIVE NEGATIVE Automated urine sediment erythrocyte cou nt by microscopy (number/high power field) NONE NRG Automated urine sediment leukocyte count by microscopy (number/high power field) RARE NRG Bacteria detection in urine sediment by light microsco py TRACE NRG Squamous epithelial cells detection in u rine sediment by light microscopy 25-50 NRG Crystals detection in urine sediment by light microsco py NONE NRG Casts detection in urine sediment by light microscopy NONE NRG Mucus detection in urine sediment by light microscopy LARGE NRG Complete urinalysis with reflex to culture NO NRG GLUCOSE CLAUDIA 1 HOUR - 04/14/19 15:09 GLUCOSE, POSTPRANDIAL/ 1 HOUR 86 mg/dL See Note: CBC - 04/14/19 15:09 WHITE BLOOD CELL COUNT 15.1 Thousand/uL 3.8-10.8 RED BLOOD CELL COUNT 4.14 Million/uL 3.8 0-5.10 HEMOGLOBIN 13.3 g/dL 11.7-15.5 HEMATOCRIT 38.7 % 35.0-45.0 MCV 93.5 fL 80.0-100.0 MCH 32.1 pg 27.0-33.0 MCHC 34.4 g/dL 32.0-36.0 RDW 12.9 % 11.0-15.0 PLATELET COUNT 247 Thousand/uL 140-400 MPV 10.6 fL 7.5-12.5 ABSOLUTE NEUTROPHILS 49575 cells/uL 1500 -7800 ABSOLUTE LYMPHOCYTES 2461 cells/uL 850-3 900 ABSOLUTE MONOCYTES 951 cells/uL 200-950 ABSOLUTE EOSINOPHILS 876 cells/uL 15-500 ABSOLUTE BASOPHILS 30 cells/uL 0-200 NEUTROPHILS 71.4 % NRG LYMPHOCYTES 16.3 % NRG MONOCYTES 6.3 % NRG EOSINOPHILS 5.8 % NRG BASOPHILS 0.2 % NRG SYPHILIS (RPR W/ REFLEX CONFIRMATION) - 04/14/19 15:09 RPR (DX) W/REFL TITER AND CONFIRMATORY TESTING NON-REACTIVE NON-REACTIVE Complete urinalysis with reflex to cultu re - 04/23/19 23:30 Urine color determination YELLOW NRG Urine clarity determination CLEAR NR G Urine pH measurement by test strip 7.0 5-9 Specific gravity of urine by test strip 1.020 1.016-1.022 Urine protein assay by test strip, semi-quantitative NEGATIVE NEGATIVE Urine glucose detection by automated test strip NE GATIVE NEGATIVE Erythrocytes detection in urine sediment by light micr oscopy NEGATIVE NEGATIVE Urine ketones detection by automated test strip NE GATIVE NEGATIVE Urine nitrite detection by test strip NEGATIVE NEGATIVE Urine total bilirubin detection by test strip NEGA TIVE NEGATIVE Urine urobilinogen measurement by automated test strip (mass/volume) 0.2 mg/dL < = 1.0 Urine leukocyte esterase detection by dipstick NEG ATIVE NEGATIVE Automated urine sediment erythrocyte cou nt by microscopy (number/high power field) NONE NRG Automated urine sediment leukocyte count by microscopy (number/high power field) NONE NRG Bacteria detection in urine sediment by light microsco py TRACE NRG Squamous epithelial cells detection in u rine sediment by light microscopy 25-50 NRG Crystals detection in urine sediment by light microsco py NONE NRG Casts detection in urine sediment by light microscopy NONE NRG Mucus detection in urine sediment by light microscopy LARGE NRG Complete urinalysis with reflex to culture NO NRG Complete urinalysis with reflex to cultu re - 05/13/19 18:20 Urine color determination YELLOW NRG Urine clarity determination CLEAR NR G Urine pH measurement by test strip 7.0 5-9 Specific gravity of urine by test strip 1.020 1.016-1.022 Urine protein assay by test strip, semi-quantitative NEGATIVE NEGATIVE Urine glucose detection by automated test strip NE GATIVE NEGATIVE Erythrocytes detection in urine sediment by light micr oscopy NEGATIVE NEGATIVE Urine ketones detection by automated test strip NE GATIVE NEGATIVE Urine nitrite detection by test strip NEGATIVE NEGATIVE Urine total bilirubin detection by test strip NEGA TIVE NEGATIVE Urine urobilinogen measurement by automated test strip (mass/volume) 0.2 mg/dL < = 1.0 Urine leukocyte esterase detection by dipstick NEG ATIVE NEGATIVE Automated urine sediment erythrocyte cou nt by microscopy (number/high power field) NONE NRG Automated urine sediment leukocyte count by microscopy (number/high power field) NONE NRG Bacteria detection in urine sediment by light microsco py FEW NRG Squamous epithelial cells detection in u rine sediment by light microscopy 0-2 NRG Crystals detection in urine sediment by light microsco py PRESENT NRG Casts detection in urine sediment by light microscopy NONE NRG Mucus detection in urine sediment by light microscopy NEGATIVE NRG Complete urinalysis with reflex to culture NO NRG Amorphous sediment detection in urine sediment by ligh t microscopy FEW NILDA PHOSPHATE NRG Complete urinalysis with reflex to cultu re - 06/09/19 23:55 Urine color determination YELLOW NRG Urine clarity determination CLEAR NR G Urine pH measurement by test strip 6.5 5-9 Specific gravity of urine by test strip 1.020 1.016-1.022 Urine protein assay by test strip, semi-quantitative NEGATIVE NEGATIVE Urine glucose detection by automated test strip NE GATIVE NEGATIVE Erythrocytes detection in urine sediment by light micr oscopy NEGATIVE NEGATIVE Urine ketones detection by automated test strip NE GATIVE NEGATIVE Urine nitrite detection by test strip NEGATIVE NEGATIVE Urine total bilirubin detection by test strip NEGA TIVE NEGATIVE Urine urobilinogen measurement by automated test strip (mass/volume) 0.2 mg/dL < = 1.0 Urine leukocyte esterase detection by dipstick NEG ATIVE NEGATIVE Automated urine sediment erythrocyte cou nt by microscopy (number/high power field) NONE NRG Automated urine sediment leukocyte count by microscopy (number/high power field) NONE NRG Bacteria detection in urine sediment by light microsco py TRACE NRG Squamous epithelial cells detection in u rine sediment by light microscopy 2-5 NRG Crystals detection in urine sediment by light microsco py NONE NRG Casts detection in urine sediment by light microscopy NONE NRG Mucus detection in urine sediment by light microscopy SMALL NRG Complete urinalysis with reflex to culture NO NRG CULTURE, GROUP B STREP (VAGINAL) - 06/15 11:39 STREPTOCOCCUS, GROUP B CULTURE SEE NOTE NRG Encounters ACCT No. Visit Date/Time Discharge Status Pt. Type Provider Facility Loc./Unit Complaint [id number] 01/16/2018 16:31:28 01/16/2018 23:59: 59 CLS Outpatient Dai Bragg [id number] 03/03/2016 08:05:00 Document Registration [id number] 11/10/2015 05:05:00 Document Registration [id number] 02/01/2016 10:05:00 Document Registration [id number] 06/09/2019 23:29:00 020 04:03:00 DIS Outpatient MARK QUINTANA DO Via [facility] WSo CONTRACTIONS, FELL IN S SANDRA [id number] 05/13/2019 17:51:00 020 19:10:00 DIS Inpatient QUINTANA MARK Jenna mccracken [facility] LDRP NAUSEA, FEVER [id number] 04/23/2019 23:10:00 020 00:35:00 DIS Outpatient RUBEN WRIGHT MD [facility] WSo STOMACH PAIN [id number] 03/02/2019 00:30:00 019 01:25:00 DIS Outpatient GUICHO MCNEILL MD [facility] WSo SEVERE ABD PAIN [id number] 07/11/2018 02:04:00 03:49:00 DIS Emergency JESSICA BRANHAM MD [facility] ER HURTS TO INDU [place],BUTTERFLIES IN STOMACH [id number] 04/11/2018 16:14:00 019 19:30:00 DIS Emergency TUAN MAHAJAN [facility] ER OVERDOSE [id number] 06/26/2017 20:02:00 018 21:38:00 DIS Emergency KATH NIETO APRN [facility] ER VOMITING BLOOD [id number] 05/11/2016 19:49:00 017 21:27:00 DIS Emergency KATH NIETO APRN [facility] ER SORE ON BUTTOCKS [id number] 11/09/2015 18:59:00 016 20:15:00 DIS Emergency ROCHELLEMITCH Buchanan DO [facility] ER ABD PAIN [id number] 10/27/2015 15:09:00 016 16:15:00 DIS Emergency KATH NIETO APRN [facility] ER PSYCH [id number] 07/17/2015 21:51:00 016 11:40:00 DIS Inpatient GUICHO MCNEILL MD [facility] ICU OVERDOSE [id number] 07/15/2015 18:32:00 016 23:59:59 CLS Outpatient DIAMOND AVINA [facility] RAD DERANGEMENT OF MEDIAL M ENISCUS DUE TO OLD TEAR [id number] 11/18/2014 12:29:00 015 13:46:00 DIS Emergency JESSICA BRANHAM MD [facility] ER VOMITING [id number] 11/16/2014 22:00:00 015 22:53:00 DIS Emergency KATH NIETO APRN [facility] ER VOMITING BLOOD [id number] 11/15/2014 21:39:00 015 23:09:00 DIS Emergency SRINIVASA GARCIA DO [facility] ER L WRIST PAIN/INJ [id number] 09/24/2014 16:09:00 015 17:32:00 DIS Emergency KATH NIETO APRN [facility] ER ABD PAIN [id number] 06/06/2014 16:56:00 015 17:31:00 DIS Emergency KATH NIETO APRN [facility] ER FEVER,SORE THROAT [id number] 04/15/2014 22:21:00 015 23:40:00 DIS Emergency KATH NIETO APRN [facility] ER ADVERSE REACTION [id number] 12/27/2013 20:22:00 014 22:02:00 DIS Emergency LINO LIRA MD [facility] ER BODY ACHES, FEVER [id number] 08/31/2013 20:05:00 014 20:59:00 DIS Emergency SRINIVASA GARCIA DO [facility] ER INSECT BITE/STING [id number] 07/09/2013 20:49:00 014 21:23:00 DIS Emergency KATH NIETO APRN [facility] ER L FOOT PAIN [id number] 12/19/2012 17:42:00 013 18:28:00 DIS Emergency KATH NIETO APRN [facility] ER DOG BITE [id number] 07/28/2012 20:10:00 013 21:05:00 DIS Emergency ANISHA BORGES [facility] ER SPIDER BITE ON LEG [id number] 07/15/2019 19:06:[address] Inpatient GUICHO MCNEILL MD [facility] LDRP INDUCTION [id number] 11/14/2017 01:30:00 Document Registration [id number] 11/14/2017 01:30:00 Document Registration [id number] 11/14/2017 01:30:00 Document Registration [id number] 11/14/2017 01:30:00 Document Registration [id number] 11/14/2017 01:30:00 Document Registration [id number] 11/14/2017 01:30:00 Document Registration [id number] 06/14/2012 21:57:00 Document Registration [id number] 02/19/2012 15:18:00 Document Registration [id number] 12/23/2011 03:14:00 Document Registration [id number] 03/18/2011 18:47:00 Document Registration [id number] 06/26/2010 00:18:00 Document Registration [id number] 04/19/2010 21:35:00 Document Registration [id number] 02/17/2010 22:38:00 Document Registration [id number] 09/12/2005 15:05:00 Document Registration [id number] 07/07/2019 09:00:00 07/07/2019 23:59:5 9 CLS Outpatient GUICHO MCNEILL MD [facility] [id number] 06/16/2019 09:00:00 Document Registration [id number] 04/14/2019 13:20:00 Document Registration [id number] 02/17/2019 13:20:00 Document Registration [id number] 11/27/2018 13:20:00 Document Registration [id number] 11/14/2018 10:20:00 Document Registration [id number] 07/08/2017 15:00:00 Document Registration [id number] 05/25/2014 14:30:00 05/25/2014 23:59: 59 CLS Outpatient TOSHIA HOUSTON RN [id number] 03/03/2014 16:21:00 03/03/2014 23:59: 59 CLS Outpatient ZAN [place] [id number] 03/03/2014 16:21:00 03/03/2014 23:59: 59 CLS Outpatient KINGS HUGHESPRESTONZAN M [id number] 03/02/2014 15:51:00 03/02/2014 23:59: 59 CLS Outpatient GWENDOLYN DUVALL [id number] 02/03/2014 13:15:00 02/03/2014 23:59: 59 CLS Outpatient TOSHIA HOUSTON RN [id number] 01/19/2014 15:15:00 01/19/2014 23:59: 59 CLS Outpatient TOSHIA HOUSTON RN [id number] 12/30/2013 08:30:00 12/30/2013 23:59: 59 CLS Outpatient TOSHIA HOUSTON RN [id number] 12/09/2013 16:01:00 12/09/2013 23:59: 59 CLS Outpatient TOSHIA HOUSTON RN [id number] 11/23/2013 16:00:00 11/23/2013 23:59: 59 CLS Outpatient TOSHIA HOUSTON RN [id number] 11/18/2013 00:00:00 11/18/2013 23:59: 59 CLS Outpatient TOSHIA HOUSTON RN [id number] 11/03/2013 16:00:00 11/03/2013 23:59: 59 CLS Outpatient TOSHIA HOUSTON RN [id number] 11/03/2013 00:00:00 11/03/2013 23:59: 59 CLS Outpatient TOSHIA HOUSTON RN [id number] 10/12/2013 15:40:00 10/12/2013 23:59: 59 CLS Outpatient MAXINE CLEARY APRN [id number] 10/12/2013 14:00:00 10/12/2013 23:59: 59 CLS Outpatient TOSHIA HOUSTON RN [id number] 07/16/2013 14:25:00 07/16/2013 23:59: 59 CLS Outpatient GLEN TORRES [id number] 07/07/2013 11:23:00 07/07/2013 23:59: 59 CLS Outpatient TRACIE RIVERA MD [id number] 07/07/2013 11:23:00 07/07/2013 23:59: 59 CLS Outpatient HEVER BOUCHER APRN [id number] 07/07/2013 08:55:00 07/07/2013 23:59: 59 CLS Outpatient GLEN TORRES [id number] 07/06/2013 13:50:00 07/06/2013 23:59: 59 CLS Outpatient GLEN TORRES [id number] 06/11/2013 15:58:00 06/11/2013 23:59: 59 CLS Outpatient CLEARY CHAYMAXINE [id number] 06/11/2013 07:53:00 06/11/2013 23:59: 59 CLS Outpatient JANNET DENT MD [id number] 06/11/2013 07:53:00 06/11/2013 23:59: 59 CLS Outpatient JANNET DENT MD [id number] 06/09/2013 13:15:00 06/09/2013 23:59: 59 CLS Outpatient GLEN TORRES [id number] 05/14/2013 13:40:00 05/14/2013 23:59: 59 CLS Outpatient GLEN TORRES [id number] 04/27/2013 17:46:00 04/27/2013 23:59: 59 CLS Outpatient LINDA LORI CARTWRIGHT [id number] 04/27/2013 13:50:00 04/27/2013 23:59: 59 CLS Outpatient GLEN TORRES [id number] 04/24/2013 15:37:00 04/24/2013 23:59: 59 CLS Outpatient MARK QUINTANA DO Jenna [id number] 04/10/2013 13:40:00 04/10/2013 23:59: 59 CLS Outpatient NATALI TORRESKATTY Junior [id number] 04/06/2013 17:57:00 04/06/2013 23:59: 59 CLS Outpatient LINDA LORI [facility] [id number] 04/06/2013 17:57:00 04/06/2013 23:59: 59 CLS Outpatient LINDA LORI [facility] [id number] 03/27/2013 09:30:00 03/27/2013 23:59: 59 CLS Outpatient DEBBIE LSEDMUNDO GLEN Junior [id number] 03/20/2013 10:12:00 03/20/2013 23:59: 59 CLS Outpatient CHARLIE FRIAS APRN [id number] 03/09/2013 15:24:00 03/09/2013 23:59: 59 CLS Outpatient EVIN [facility]MAXINE [id number] 02/09/2013 16:11:00 02/09/2013 23:59: 59 [facility] [id number] 01/23/2013 15:54:00 01/23/2013 23:59: 59 [facility] [id number] 01/05/2013 17:41:00 01/05/2013 23:59: 59 CLS Outpatient MARK QUINTANA DO [id number] 12/18/2012 16:03:00 12/18/2012 23:59: 59 CLS Outpatient MAXINE CLEARY APRN [id number] 12/11/2012 17:56:00 12/11/2012 23:59: 59 CLS Outpatient WOLF MCKEON APRNCOLLIN Junior [id number] 10/16/2012 14:58:00 10/16/2012 23:59: 59 CLS Outpatient MAXINE CLEARY APRN [id number] 05/21/2012 16:06:00 05/21/2012 23:59: 59 CLS Outpatient [id number] 03/14/2012 13:35:00 03/14/2012 23:59: 59 CLS Outpatient MAXINE CLEARY APRN [id number] 02/19/2012 10:34:00 02/19/2012 23:59: 59 CLS Outpatient JANNET DENT MD [id number] 02/13/2012 15:30:00 02/13/2012 23:59: 59 CLS Outpatient [id number] 01/29/2012 10:06:00 01/29/2012 23:59: 59 CLS Outpatient [id number] 04/03/2013 15:46:00 Document Registration [id number] 10/09/2012 12:56:00 Document Registration [id number] 08/28/2012 09:12:00 Document Registration [id number] 08/19/2012 12:55:00 Document Registration [id number] 07/30/2012 07:58:00 Document Registration [id number] 06/26/2012 09:35:00 Document Registration [id number] 06/11/2012 08:02:00 Document Registration
[2019-07-15 20:20] LABS: BASOPHILS % (AUTO) 0 % (0-10); EOSINOPHILS # (AUTO) 0.7 10^3/uL (0.0-0.3); EOSINOPHILS % (AUTO) 4 % (0-10); HEMATOCRIT 37 % (35-52); HEMOGLOBIN 12.5 G/DL (11.5-16.0); LYMPHOCYTES # (AUTO) 2.7 X 10^3 (1.0-4.0); LYMPHOCYTES % (AUTO) 14 % (12-44); MEAN CORPUSCULAR HEMOGLOBIN 31 PG (25-34); MEAN CORPUSCULAR HGB CONC 34 G/DL (32-36); MEAN CORPUSCULAR VOLUME 91 FL (80-99); MEAN PLATELET VOLUME 9.6 FL (7.4-10.4); MONOCYTES # (AUTO) 1.5 X 10^3 (0.0-1.0); MONOCYTES % (AUTO) 8 % (0-12); NEUTROPHILS # (AUTO) 14.2 X 10^3 (1.8-7.8); NEUTROPHILS % (AUTO) 74 % (42-75); PLATELET COUNT 265 10^3/uL (130-400); RED CELL DISTRIBUTION WIDTH 13.3 % (10.0-14.5); WHITE BLOOD COUNT 19.2 10^3/uL (4.3-11.0)
[2019-07-15 21:02] LABS: EOSINOPHILS % (MANUAL) 1 %; LYMPHOCYTES % (MANUAL) 17 %; MONOCYTES % (MANUAL) 11 %; NEUTROPHILS % (MANUAL) 71 %
[2019-07-15 21:03] LABS: RBC MORPH NORMAL
[2019-07-15] MEDS ORDERED: CATHETER FLUSH 10 ML SYR IV SCH (22:00)
[2019-07-15 22:40] VITALS: BP 92/54
[2019-07-15] MEDS ORDERED: ACETAMINOPHEN 500 MG TAB (TYLENOL) PO PRN (23:00)
[2019-07-15 23:10] VITALS: BP 95/52
[2019-07-15 23:23] VITALS: BP_SYST 54
[2019-07-15 23:39] VITALS: BP 102/52
[2019-07-16] VITALS (70 sets, daily range): BP systolic 86–162; BP diastolic 50–82
--- NOTE | 2019-07-16 00:54 | History & Physical-OB ---
OB - Chief Complaint & HPI Date/Time Date of Admission: Date of Admission: July 15, 2019 at 19:06 Date seen by a Provider: July 16, 2019 Time Seen by a Provider: 01:02 Chief Complaint/History OB-Reason for Admission/Chief: Induction of Labor Hx : 1 Hx Para: 0 Expected Date of Delivery: July 13, 2019 Gestational Age in Weeks: 40 Gestational Age in Days: 3 Indication for induction: post dates History of Labs B+, antibody neg, RI. GC/chlamydia neg. HIV/HepB/RPR NR. Glucola nml. GBS neg. Allergies and Home Medications Allergies Coded Allergies: aripiprazole (Unverified Allergy, Mild, 06/09/19) Uncoded Allergies: VYVANCE (Allergy, Mild, 07/17/15) Home Medications Vit No.124/Iron/FA 1 Each Tablet, 1 EACH PO DAILY, (Reported) Patient Home Medication List Home Medication List Reviewed: Yes OB - History Hx of Present Care: Yes Ultrasounds: Normal mid trimester US Obstetrical Complications: None Medical Complications: Psychiatric (anxiety on buspirone) Information Induced Hypertension: No Maternal Gestational Diabetes: No Hemorrhage: No Obstetrical History Hx : 1 Hx Para: 0 Hx # Term Pregnancies: 0 Hx # Pregnancies: 0 Number of Living Children: 0 Hx Termination: No Hx Multiple Gestation: No Hx Ectopic : No Hx Stillbirth: No Hx Complication: No Hx Induced Hypertens: No Hx Maternal Gestational Diabet: No Hx Hemorrhage: No Delivery History Hx Dystocia: No Hx Forceps Assisted Delivery: No Hx Vacuum Extraction Assisted: No Hx Placenta Abnormality: No Hx Distress: No Hx Large For Gestational Age I: No Hx Small for Gestational Age I: No Hx Section: No Hx Vaginal Delivery Post C-Sec: No Hx Blood Disorders: No Adverse Rxn to Tranfusion: No Patient Past Medical History PMHx: Depression Anxiety ADHD Psychiatric hospitalizations/overdose SurgHx: Knee arthroscopy Social History/Family History HIV/AIDS: No Recent Infectious Disease Expo: No Sexually Transmitted Disease: No Alcohol Use: Past History Recreational Drug Use: No Smoking Cessation: Current every day smoker 2nd Hand Smoke Exposure: No Immunizations Tetanus Booster (TDap): Less than 5yrs (05/28/2019) Date of Influenza Vaccine: Feb 17, 2019 Rubella: immune RPR/VDRL: Negative GBS Status: Negative HBsAG: Negative OB - Admission Exam Physical Exam Vitals: Vital Signs 07/15/19 07/15/19 07/15/19 19:53 22:40 23:39 Temp 36.4 Pulse 82 Resp 18 B/P (MAP) 102/52 (69) Pulse Ox 99 O2 Delivery Room Air HEENT: NCAT Abdomen: Non tender Cervical Dilatation: None Effacement: 0% Station: Ballotable Membranes: Intact Heart Rate: 140's Accelerations: Accelerations Present Decelerations: No Decelerations Software Quality Specialist Variability: Average (6-25) Contractions on Admission: None Stewart Scoring Tool (Modified) Dilation (cm): 0/Closed (0) Effacement (%): 0-30% (0) Descent/Station: -3 (0) Cervix Consistency: Firm (0) Cervix Position: Posterior (0) Subtract 1 point for: Postdate (-1), Nulliparity (-1) Labs Laboratory Tests Test 07/15/19 20:00 Range/Units White Blood Count 19.2 H 4.3-11.0 10^3/uL Red Blood Count 4.02 L 4.35-5.85 10^6/uL Hemoglobin 12.5 11.5-16.0 G/DL Hematocrit 37 35-52 % Mean Corpuscular Volume 91 80-99 FL Mean Corpuscular Hemoglobin 31 25-34 PG Mean Corpuscular Hemoglobin Concent 34 32-36 G/DL Red Cell Distribution Width 13.3 10.0-14.5 % Platelet Count 265 130-400 10^3/uL Mean Platelet Volume 9.6 7.4-10.4 FL Neutrophils (%) (Auto) 74 42-75 % Lymphocytes (%) (Auto) 14 12-44 % Monocytes (%) (Auto) 8 0-12 % Eosinophils (%) (Auto) 4 0-10 % Basophils (%) (Auto) 0 0-10 % Neutrophils # (Auto) 14.2 H 1.8-7.8 X 10^3 Lymphocytes # (Auto) 2.7 1.0-4.0 X 10^3 Monocytes # (Auto) 1.5 H 0.0-1.0 X 10^3 Eosinophils # (Auto) 0.7 H 0.0-0.3 10^3/uL Basophils # (Auto) 0.0 0.0-0.1 10^3/uL Neutrophils % (Manual) 71 % Lymphocytes % (Manual) 17 % Monocytes % (Manual) 11 % Eosinophils % (Manual) 1 % Blood Morphology Comment NORMAL OB - Assessment/Plan/Diagnosis Assessment Assessment: induction of labor Admission Dx Induction of labor Postdates 40 weeks gestation GBS negative Admission Status: Inpatient Order (span 2 midnights) Reason for Inpatient Admission: Induction, labor, delivery and course Plan Plan: Induction Induction Method: per Misoprostol Protocol GUICHO MCNEILL MD July 16, 2019 00:54
[2019-07-16] MEDS: MISOPROSTOL 100 MCG (CYTOTEC) TAB PO SCH ×2 (01:31→05:22)
[2019-07-16] MEDS: D5 LR IV SOLUTION 1,000 ML IV SCH ×3 (01:34→14:05)
[2019-07-16] MEDS: fentaNYL INJECTION 100 MCG/2 ML AMP IVP PRN ×4 (02:37→12:25)
[2019-07-16] MEDS ORDERED: fentaNYL 2 mcg/ml BUPIVA 0.125 100 ML ONE (10:22)
[2019-07-16] MEDS ORDERED: BUPIVACAINE 0.25% 30 ML (SENSORCAINE) VIAL ONE (11:14)
[2019-07-16] MEDS ORDERED: fentaNYL INJECTION 100 MCG/2 ML AMP ONE (11:14)
[2019-07-16] MEDS ORDERED: LIDOCAINE PF 2% 5 ML (XYLOCAINE) VIAL ONE ×2 (11:14→19:59)
[2019-07-16] MEDS ORDERED: LACTATED RINGERS 1,000 ML IV SCH (11:27)
[2019-07-16] MEDS ORDERED: ONDANSETRON 4 MG/2 ML (SDV) Z0FRAN IV PRN (11:30)
[2019-07-16] MEDS ORDERED: EPIDURAL (fentaNYL 2 MCG/ML BUPIVA 0.125%)100 ML BAG EPI PRN (11:30)
[2019-07-16] MEDS ORDERED: NALOXONE 0.4 MG/ML 1 ML (NARCAN) VIAL IV PRN (11:30)
[2019-07-16] MEDS ORDERED: diphenhydrAMINE 50 MG/ML INJ (BENADRYL) IV PRN (11:30)
[2019-07-16] MEDS ORDERED: TERBUTALINE INJ 1 MG/ML (BRETHINE) AMP ONE (13:09)
[2019-07-16] MEDS ORDERED: OXYTOCIN PRE-MIX DRIP 500 ML IV SCH (15:28)
[2019-07-16] MEDS ORDERED: ceFAZolin 2 GM IV Premixed 50 ML ONE (18:01)
[2019-07-16] MEDS ORDERED: METOCLOPRAMIDE INJ 10 MG/2 ML (REGLAN) ONE (18:01)
[2019-07-16] MEDS ORDERED: FAMOTIDINE 20MG/2ML IV (PEPCID) ONE (18:01)
[2019-07-16] MEDS ORDERED: CITRIC ACID/SOB CIT (BICITRA) 30 ML UDC ONE (18:01)
--- NOTE | 2019-07-16 18:12 | Labor Progress Note ---
Labor Progress Note Labor Progress Note Date Seen by Provider: July 16, 2019 Time Seen by Provider: 18:00 Subjective: Pt denies complaints. Objective: Cervical exam: 1.5/0/-3 Consistency: Firm Position: anterior Presentation: Vertex heart tones: 160 beats per minute, minimal variability, no decels Tocometer: 5 ctx/10 minutes Assessment/Plan: Shan Beck is a 24 /Para 1 / 0,Gestational Age (wks)40 here for induction of labor due to post-dates. Has had minimal progress in spite of 3 doses of cytotec, as well as about four hours of pitocin. Consistently contrac ting all day but without cervical change, and with persistently worsening tolerance of labor with periods of minimal variability and intermittent late decelerations. CEFM/TOCO Anesthesia: epidural Discussed with patient and recommend proceeding with for intolerance of labor with failure to progress and regular contractions and she is in agreement, discussed with Dr. Thayer who also agrees, crew notified. Vitals - Labs Vital Signs - I&O Vital Signs Date Time Temp Pulse Resp B/P (MAP) Pulse Ox O2 Delivery O2 Flow Rate FiO2 07/16/19 16:15 93 20 113/62 (79) Room Air 07/16/19 16:00 96 20 110/65 (80) Room Air 07/16/19 15:45 96 20 113/70 (84) Room Air 07/16/19 15:30 95 20 118/57 (77) Room Air 07/16/19 15:25 37.5 07/16/19 15:15 99 20 93/53 (66) Room Air 07/16/19 15:00 98 20 102/58 (73) Room Air 07/16/19 14:45 98 20 109/62 (78) Room Air 07/16/19 14:30 103 20 118/56 (76) 99 Room Air 07/16/19 14:15 108 20 162/70 (100) 99 Room Air 07/16/19 14:00 127 20 128/72 (90) 99 Room Air 07/16/19 13:45 110 20 120/77 (91) 100 Room Air 07/16/19 13:38 96 20 104/66 (79) 100 Room Air 07/16/19 13:33 98 20 103/64 (77) 100 Room Air 07/16/19 13:28 82 20 104/65 (78) 98 Room Air 07/16/19 13:23 96 20 112/58 (76) 98 Room Air 07/16/19 13:20 36.4 86 20 110/68 (82) 100 Room Air 07/16/19 13:17 75 20 107/70 (82) Room Air 07/16/19 13:14 64 20 106/61 (76) 91 Room Air 07/16/19 13:11 67 20 108/61 (77) 99 Room Air 07/16/19 13:08 68 20 121/69 (86) 99 Room Air 07/16/19 13:05 73 20 120/69 (86) 99 Room Air 07/16/19 13:02 75 20 120/67 (84) 99 Room Air 07/16/19 12:59 81 20 115/66 (82) 99 Room Air 07/16/19 12:56 82 20 117/67 (84) 99 Room Air 07/16/19 12:53 86 20 110/66 (81) 99 Room Air 07/16/19 12:50 81 20 107/62 (77) 97 Room Air 07/16/19 12:48 78 20 112/66 (81) 99 Room Air 07/16/19 12:45 82 20 114/69 (84) 99 Room Air 07/16/19 12:41 88 20 112/56 (74) Room Air 07/16/19 12:38 96 20 113/63 (80) 99 Room Air 07/16/19 11:40 90 20 103/67 (79) Room Air 07/16/19 11:00 37.1 07/16/19 10:40 100 18 104/60 (75) Room Air 07/16/19 10:10 96 18 118/56 (76) Room Air 07/16/19 09:10 88 18 102/59 (73) Room Air 07/16/19 08:40 36.5 93 18 86/50 (62) Room Air 07/16/19 08:10 91 18 93/51 (65) Room Air 07/16/19 07:40 88 18 103/52 (69) Room Air 07/16/19 07:10 91 18 95/54 (68) Room Air 07/16/19 06:40 81 18 96/53 (67) Room Air 07/16/19 06:10 82 18 91/51 (64) Room Air 07/16/19 05:40 35.9 75 18 111/60 (77) Room Air 07/16/19 04:40 77 18 99/59 (72) Room Air 07/16/19 04:10 73 18 96/55 (69) Room Air 07/16/19 03:40 76 18 99/58 (72) Room Air 07/16/19 03:10 74 18 101/55 (70) Room Air 07/16/19 02:40 35.7 81 18 100/58 (72) Room Air 07/16/19 02:10 82 18 109/57 (74) Room Air 07/16/19 01:40 36.7 83 18 112/57 (75) Room Air 07/16/19 01:10 86 18 103/51 (68) Room Air 07/16/19 00:40 91 18 117/57 (77) Room Air 07/16/19 00:10 90 18 107/53 (71) Room Air 07/15/19 23:39 82 18 102/52 (69) Room Air 07/15/19 23:23 54/ 07/15/19 23:10 90 18 95/52 (66) Room Air 07/15/19 22:40 36.4 83 18 92/54 (67) Room Air 07/15/19 19:53 36.5 107 18 99 Room Air I & O 07/16/19 07:00 Intake Total 2000 ml Balance 2000 ml Labs Laboratory Tests 07/15/19 20:00: White Blood Count 19.2H, Red Blood Count 4.02L, Hemoglobin 12.5, Hematocrit 37, Mean Corpuscular Volume 91, Mean Corpuscular Hemoglobin 31, Mean Corpuscular Hemoglobin Concent 34, Red Cell Distribution Width 13.3, Platelet Count 265, Mean Platelet Volume 9.6, Neutrophils (%) (Auto) 74, Lymphocytes (%) (Auto) 14, Monocytes (%) (Auto) 8, Eosinophils (%) (Auto) 4, Basophils (%) (Auto) 0, Neutrophils # (Auto) 14.2H, Lymphocytes # (Auto) 2.7, Monocytes # (Auto) 1.5H, Eosinophils # (Auto) 0.7H, Basophils # (Auto) 0.0, Neutrophils % (Manual) 71, Lymphocytes % (Manual) 17, Monocytes % (Manual) 11, Eosinophils % (Manual) 1, Blood Morphology Comment NORMAL GUICHO MCNEILL MD July 16, 2019 18:12
[2019-07-16] MEDS ORDERED: TETANUS,DIPTH,PERTUSS P/F (BOOSTRIX) 0.5 ML VIAL IM SCH (18:30)
[2019-07-16] MEDS ORDERED: MEASLES,MUMPS,RUBELLA 1 EA INJ SC SCH (18:30)
[2019-07-16] MEDS ORDERED: OXYTOCIN PRE-MIX DRIP 1,000 ML IV ONE (18:35)
--- NOTE | 2019-07-16 18:58 | Progress Note-Pre Operative ---
Pre-Operative Progress Note H&P Reviewed The H&P was reviewed, patient examined and no changes noted. Date Seen by Provider: July 16, 2019 Time Seen by Provider: 18:58 Date H&P Reviewed: July 16, 2019 Time H&P Reviewed: 18:58 Pre-Operative Diagnosis: intolerance of labor, 40.3 IUP ISSAC EID DO July 16, 2019 18:58
[2019-07-16] MEDS ORDERED: DCS100C PO (19:02)
[2019-07-16] MEDS ORDERED: HYDR-83 PO (19:02)
[2019-07-16] MEDS ORDERED: IBUP-844 PO (19:02)
--- NOTE | 2019-07-16 19:04 | Discharge Inst-Women's Service ---
Discharge Inst-Women's Serv Depart Medication/Instructions New, Converted or Re-Newed RX: RX on Chart Final Diagnosis POD 2 PLTCS Problems Reviewed?: Yes Consults/Follow Up Orders/Referrals Dr. Thayer in 7-10 days, Dr. Liu in 6 weeks Activity Activity: Activity as Tolerated Driving Instructions: No Driving for 1 Week NO SMOKING: NO SMOKING Nothing Inside Vagina: No Douching, No [place], No Tampons Diet Discharge Diet: No Restrictions Symptoms to Report to : Bleeding Excessive, Pain Increased, Fever Over 101 Degrees F, Vaginal Bleeding Increase, Questions/Concerns For Any Problems or Questions: Contact Your Physician Skin/Wound Care Infection Signs and Symptoms: Increased Redness, Foul Odor of Wound, Increased Drainage, Skin Itchy or Has a Rash, Increased Swelling, Temperature Above 101 F Operative Area Clean and Dry: Keep Incision Clean/Dry Stitches/Brandy/Dermabond: Dermabond, Care of Stitches Bathing Instructions: ISSAC Pham DO July 16, 2019 19:04
[2019-07-16] MEDS ORDERED: KETAMINE/NaCl 50 MG/5 ML SYRINGE (ED ONLY) ONE (19:09)
[2019-07-16] MEDS ORDERED: MIDAZOLAM 2 MG/2 ML (VERSED) VIAL ONE (19:13)
[2019-07-16] MEDS: KETOROLAC 30 MG/ML VIAL IV SCH (19:45)
[2019-07-16] MEDS ORDERED: ONDANSETRON 4 MG/2 ML (SDV) Z0FRAN ONE (19:59)
[2019-07-16] MEDS ORDERED: BUPIVACAINE 0.5% 30 ML (SENSORCAINE) VIAL ONE (19:59)
[2019-07-16] MEDS ORDERED: KETOROLAC 30 MG/ML VIAL ONE (19:59)
[2019-07-16] MEDS ORDERED: DEXAMETHASONE 10 MG/ML (DECADRON) 1 ML VIAL ONE (19:59)
--- NOTE | 2019-07-16 20:22 | OPERATIVE REPORT ---
DATE OF SERVICE: PREOPERATIVE DIAGNOSES: 1. A 24-year-old G1, P0 at 40 weeks and 4 days gestation. 2. intolerance of labor. POSTOPERATIVE DIAGNOSES. 1. A 24-year-old G1, P0 at 40 weeks and 4 days gestation. 2. intolerance of labor. PROCEDURE: Primary low transverse section. SURGEON: Frederic Eid DO ANESTHESIA: Epidural, which was bolused. ESTIMATED BLOOD LOSS: 500 mL. URINE OUTPUT: 150 mL clear at the end of the procedure. FLUIDS: 1600 mL lactated Ringer's solution. FINDINGS: A live female weighing 6 pounds 4 ounces, Apgars of 8 and 9. Grossly normal appearing uterus, bilateral fallopian tubes and ovaries. SPECIMEN SENT: None. INDICATIONS FOR PROCEDURE: This 24-year-old female patient was admitted for management by Dr. Liu of induction of labor due to postdates. She was unfavorable on admission, was given Cytotec overnight and every attempt at Pitocin augmentation resulted in heart rate decelerations. Due to intolerance of labor and being remote from delivery, discussion was had with the patient to proceed with primary . Risks of the procedure versus risk of ongoing labor was reviewed. After all of her questions were answered, consent was obtained, the patient was taken to the operating room. OPERATIVE REPORT IN DETAIL: Once in the operating room, spinal analgesia was found to be adequate, placed in supine position with leftward tilt, prepped and draped in normal sterile fashion. Timeout was performed and anesthesia was tested. I then performed a Pfannenstiel skin incision with a knife and carried down layer of fascia using Bovie cautery. Fascial incision extended laterally using Bovie cautery. Superior aspect of the fascial incision was then grasped with Mariam clamps, tented up and dissected off the underlying rectus muscles. The inferior aspect of the fascial incision was then grasped with Mariam clamps, tented up and dissected off the underlying rectus muscles. Rectus muscles were dissected down the midline using Morales scissors, which exposed the peritoneum, which I entered bluntly and extended using blunt traction. Dillan ring retractor was placed in the peritoneal incision, which offers excellent lateral sidewall retraction. I then identified the lower uterine segment, which was found to be thinned out and make a low transverse incision to the vesicouterine peritoneum and bluntly dissected off the lower uterine segment. I then proceeded with myotomy until membranes were visualized at which point extended the uterine incision laterally and superiorly using bandage scissors. Amniotomy was then performed using Allis clamp. Clear fluid was noted. The infant was found in vertex presentation. With gentle fundal pressure, the 's head is elevated up the incision where it delivered incision. The nares and oropharynx were bulb suctioned. Anterior and posterior shoulders were delivered. Infant was then brought to the operative field where the cord was doubly clamped and cut and infant was handed off to Dr. Liu, who was present for delivery. Cord blood was collected, three-vessel cord with intact placenta was delivered spontaneously thereafter. IV Pitocin was initiated to facilitate uterine contraction. Uterine fundus confirmed by manual massage. The uterus was exteriorized and cleared of all endometrial clots and debris. I then proceeded with closing the uterine incision using 0 Vicryl suture in running locked fashion. Second layer of imbricating 0 Monocryl was placed. Excellent hemostasis was noted after doing this. I then placed the uterus back in the pelvis and copiously irrigated the pelvis using normal saline. No active bleeding noted from any of my dissection planes. I placed Interceed antiadhesive over my low transverse incision and proceeded with removing the Dillan ring retractor. I then closed the peritoneum using 3-0 Vicryl suture in running fashion. The rectus muscle reapproximated using 3-0 Vicryl suture in interrupted fashion. The fascia was reapproximated using 0 Vicryl suture in running fashion. Subcutaneous tissue was reapproximated using 3-0 plain interrupted subcutaneous stitch and skin reapproximated using 4-0 Monocryl running subcuticular. Dermabond was applied to incision and sterile dressing with adhesive white tape. The patient tolerated the procedure well and sent to recovery in stable condition. Lap and sponge counts were correct at the end of the procedure's counts correct as well. Two grams of Ancef given preoperatively for infection prophylaxis. Job ID: [id number] DocumentID: [id number] Dictated Date: 07/16/2019 20:00:35 Reel Cutter Date: 07/16/2019 20:22:01 Dictated By: FREDERIC EID DO
--- NOTE | 2019-07-16 20:35 | NUR ---
Pt transferred to room 307 per bed accompanied by this rn and juan josé, credit intern. recovery nurse states that anesthesia said pt could have "fast track" recovery. bedside report completed. calf scd's on. pitocin converted to pump and running at 125ml/hr. Pt awake and alert. requesting to see infant. vss, will monitor closely. nursery rn in room with at this time.
--- NOTE | 2019-07-16 20:50 | NUR ---
ff u/1. pt grabs rns arms during fundal exam. rating pain 9/10. Pt requesting to bottle feed . fob giving infant bottle with nsy rn at side.
--- NOTE | 2019-07-16 21:06 | NUR ---
vss, ff u/1. scant bleeding. fob placing on back in crib. asking for to go to nsy so pt and he can rest. Pt resting awake but with eyes closed. requesting coke, cosimone given. taken to nsy per this rn.
[2019-07-16] MEDS ORDERED: CATHETER FLUSH 10 ML SYR IV SCH (22:00)
--- NOTE | 2019-07-16 22:20 | NUR ---
Patient voiced urge to void but unable to move legs entirely since surgery. Patient voided 600mL with use of bedpan. Pericare and fresh pad placed under patient per this RN. Call light remains within reach.
[2019-07-16] MEDS: OXYTOCIN PRE-MIX DRIP 500 ML IV SCH ×2 (23:46→23:54)
--- NOTE | 2019-07-17 | NUR ---
rEPORT RECEIVED FROM Vernon THOMSON RN
[2019-07-17] MEDS: HYDROcodone/APAP 5 MG/325 MG (LORTAB) TAB PO PRN ×3 (01:06→15:49)
[2019-07-17] MEDS: KETOROLAC 30 MG/ML VIAL IV SCH ×3 (01:06→15:50)
[2019-07-17 01:07] VITALS: BP 115/72
--- NOTE | 2019-07-17 02:00 | NUR ---
Patient ambulated to bathroom. Positive void achieved of 550mL. Pericare per patient. Patient ambulated back to bed without issue. SCDs back on calves bilaterally. Call light within reach.
[2019-07-17] MEDS: D5 LR IV SOLUTION 1,000 ML IV SCH (03:56)
[2019-07-17 04:00] VITALS: BP 111/67
--- NOTE | 2019-07-17 05:00 | NUR ---
Patient ambulated to bathroom. Positive void achieved of 5mL. Pericare per patient. Patient ambulated back to bed without issue. SCDs back on calves bilaterally. Call light within reach. Addendum: 07/17/19 at 0508 by SORAYA TAVERA RN Void amount 500mL
[2019-07-17 05:41] LABS: BASOPHILS % (AUTO) 0 % (0-10); EOSINOPHILS % (AUTO) 0 % (0-10); HEMATOCRIT 35 % (35-52); HEMOGLOBIN 11.7 G/DL (11.5-16.0); LYMPHOCYTES # (AUTO) 1.4 X 10^3 (1.0-4.0); LYMPHOCYTES % (AUTO) 5 % (12-44); MEAN CORPUSCULAR HEMOGLOBIN 31 PG (25-34); MEAN CORPUSCULAR HGB CONC 34 G/DL (32-36); MEAN CORPUSCULAR VOLUME 92 FL (80-99); MEAN PLATELET VOLUME 10.3 FL (7.4-10.4); MONOCYTES # (AUTO) 1.4 X 10^3 (0.0-1.0); MONOCYTES % (AUTO) 5 % (0-12); NEUTROPHILS # (AUTO) 27.4 X 10^3 (1.8-7.8); NEUTROPHILS % (AUTO) 91 % (42-75); PLATELET COUNT 243 10^3/uL (130-400)
[2019-07-17 05:43] LABS: WHITE BLOOD COUNT 30.2 10^3/uL (4.3-11.0)
[2019-07-17 06:06] LABS: BAND NEUTROPHILS 11 %; LYMPHOCYTES % (MANUAL) 6 %; MONOCYTES % (MANUAL) 3 %; NEUTROPHILS % (MANUAL) 80 %; RBC MORPH NORMAL
--- NOTE | 2019-07-17 06:46 | NUR ---
RT to patient room to set up IS
--- NOTE | 2019-07-17 07:44 | Postpartum Progress Note ---
Note Note Day # 1 Subjective: Patient is without complaints. Ambulating, voiding. Tolerating a regular diet without nausea or vomiting. Normal lochia. Pain is well controlled with oral pain medications. Objective: Physical Exam: General - Alert and oriented, no apparent distress Abdomen - Soft, appropriately tender to palpation, non-distended, fundus firm at umbilicus Extremities - no edema, negative Didier's bilaterally Incision c/d/i Assessment: POD 1 PLTCS Leukocytosis Plan: Repeat cbc tomorrow, monitor for fevers Routine care. Encourage breast feeding. Encourage ambulation. Ferrous sulfate supplementation. Plan for discharge tomorrow Vitals - Labs Vital Signs - I&O Vital Signs Date Time Temp Pulse Resp B/P (MAP) Pulse Ox O2 Delivery O2 Flow Rate FiO2 07/17/19 06:53 Room Air 07/17/19 04:00 36.3 80 20 111/67 (82) 96 Room Air 07/17/19 01:07 36.5 77 18 115/72 (86) 96 Room Air 07/16/19 21:06 36.3 80 18 125/76 (92) 96 Room Air 07/16/19 20:50 37.3 94 18 123/81 (95) 97 Room Air 07/16/19 20:45 Room Air 07/16/19 20:45 36.6 16 109/77 (88) 99 Room Air 07/16/19 20:40 Room Air 07/16/19 20:40 16 109/77 (88) 99 Room Air 07/16/19 20:30 16 116/76 (89) 99 Room Air 07/16/19 20:25 Room Air 07/16/19 20:20 14 124/82 (96) 99 Room Air 07/16/19 20:10 20 119/78 (92) 100 Nasal Cannula 2 07/16/19 20:10 Nasal Cannula 2 07/16/19 20:00 20 120/74 (89) 100 Nasal Cannula 2 07/16/19 19:59 Nasal Cannula 2 07/16/19 19:59 37.1 20 120/74 (89) 100 Nasal Cannula 2 07/16/19 18:45 88 20 114/61 (78) Room Air 07/16/19 18:30 37.0 93 20 117/66 (83) Room Air 07/16/19 18:15 93 20 125/75 (92) Room Air 07/16/19 18:00 81 20 120/65 (83) Room Air 07/16/19 17:45 89 20 98/59 (72) Room Air 07/16/19 17:30 80 20 97/57 (70) Room Air 07/16/19 17:15 83 20 106/63 (77) Room Air 07/16/19 17:00 80 20 111/64 (80) Room Air 07/16/19 16:45 91 20 117/66 (83) Room Air 07/16/19 16:30 36.9 93 20 120/63 (82) Room Air 07/16/19 16:15 93 20 113/62 (79) Room Air 07/16/19 16:00 96 20 110/65 (80) Room Air 07/16/19 15:45 96 20 113/70 (84) Room Air 07/16/19 15:30 95 20 118/57 (77) Room Air 07/16/19 15:25 37.5 07/16/19 15:15 99 20 93/53 (66) Room Air 07/16/19 15:00 98 20 102/58 (73) Room Air 07/16/19 14:45 98 20 109/62 (78) Room Air 07/16/19 14:30 103 20 118/56 (76) 99 Room Air 07/16/19 14:15 108 20 162/70 (100) 99 Room Air 07/16/19 14:00 127 20 128/72 (90) 99 Room Air 07/16/19 13:45 110 20 120/77 (91) 100 Room Air 07/16/19 13:38 96 20 104/66 (79) 100 Room Air 07/16/19 13:33 98 20 103/64 (77) 100 Room Air 07/16/19 13:28 82 20 104/65 (78) 98 Room Air 07/16/19 13:23 96 20 112/58 (76) 98 Room Air 07/16/19 13:20 36.4 86 20 110/68 (82) 100 Room Air 07/16/19 13:17 75 20 107/70 (82) Room Air 07/16/19 13:14 64 20 106/61 (76) 91 Room Air 07/16/19 13:11 67 20 108/61 (77) 99 Room Air 07/16/19 13:08 68 20 121/69 (86) 99 Room Air 07/16/19 13:05 73 20 120/69 (86) 99 Room Air 07/16/19 13:02 75 20 120/67 (84) 99 Room Air 07/16/19 12:59 81 20 115/66 (82) 99 Room Air 07/16/19 12:56 82 20 117/67 (84) 99 Room Air 07/16/19 12:53 86 20 110/66 (81) 99 Room Air 07/16/19 12:50 81 20 107/62 (77) 97 Room Air 07/16/19 12:48 78 20 112/66 (81) 99 Room Air 07/16/19 12:45 82 20 114/69 (84) 99 Room Air 07/16/19 12:41 88 20 112/56 (74) Room Air 07/16/19 12:38 96 20 113/63 (80) 99 Room Air 07/16/19 11:40 90 20 103/67 (79) Room Air 07/16/19 11:00 37.1 07/16/19 10:40 100 18 104/60 (75) Room Air 07/16/19 10:10 96 18 118/56 (76) Room Air 07/16/19 09:10 88 18 102/59 (73) Room Air 07/16/19 08:40 36.5 93 18 86/50 (62) Room Air 07/16/19 08:10 91 18 93/51 (65) Room Air I & O 07/17/19 07:00 Intake Total 1150 ml Output Total 1850 ml Balance -700 ml Labs Laboratory Tests 07/17/19 04:22: White Blood Count 30.2*H, Red Blood Count 3.76L, Hemoglobin 11.7, Hematocrit 35, Mean Corpuscular Volume 92, Mean Corpuscular Hemoglobin 31, Mean Corpuscular Hemoglobin Concent 34, Red Cell Distribution Width 13.0, Platelet Count 243, Mean Platelet Volume 10.3, Neutrophils (%) (Auto) 91H, Lymphocytes (%) (Auto) 5L , Monocytes (%) (Auto) 5, Eosinophils (%) (Auto) 0, Basophils (%) (Auto) 0, Neutrophils # (Auto) 27.4H, Lymphocytes # (Auto) 1.4, Monocytes # (Auto) 1.4H, Eosinophils # (Auto) 0.0, Basophils # (Auto) 0.0, Neutrophils % (Manual) 80, Lymphocytes % (Manual) 6, Monocytes % (Manual) 3, Band Neutrophils 11, Blood Morphology Comment NORMAL ISSAC EID DO July 17, 2019 07:44
[2019-07-17 08:00] VITALS: BP 108/66
[2019-07-17] MEDS: DOCUSATE SODIUM 100 MG (COLACE) CAP PO SCH ×3 (09:10→21:54)
--- NOTE | 2019-07-17 10:43 | NUR ---
report received from CHARITY Kate
--- NOTE | 2019-07-17 11:15 | NUR ---
Out of shower.
--- NOTE | 2019-07-17 11:20 | NUR ---
ambulating in hallways with s/o @ side.
[2019-07-17 12:00] VITALS: BP 105/72
--- NOTE | 2019-07-17 14:34 | Anesthesia-Regional Post-Op ---
Regional Patient Condition Mental Status: Alert, Oriented x3 Circulation: Same as Pre-Op Headache: Absent Sensation: Full Recovery Motor Block: Absent Post Op Complications Complications None Follow Up Care/Instructions Patient Instructions None needed. Anesthesia/Patient Condition Patient is doing well, no complaints, stable vital signs, no apparent adverse anesthesia problems. CHANDLER GARCIA DO July 17, 2019 14:34
[2019-07-17 16:00] VITALS: BP 120/64
[2019-07-17] MEDS: IBUPROFEN 600 MG (MOTRIN) TAB PO SCH (18:12)
[2019-07-17 21:11] VITALS: BP 95/52
[2019-07-18] MEDS: IBUPROFEN 600 MG (MOTRIN) TAB PO SCH ×3 (00:59→11:49)
[2019-07-18] MEDS: HYDROcodone/APAP 5 MG/325 MG (LORTAB) TAB PO PRN ×2 (02:02→11:36)
[2019-07-18 03:11] VITALS: BP 92/50
[2019-07-18 06:18] LABS: BASOPHILS % (AUTO) 0 % (0-10); EOSINOPHILS # (AUTO) 0.1 10^3/uL (0.0-0.3); EOSINOPHILS % (AUTO) 1 % (0-10); HEMATOCRIT 32 % (35-52); LYMPHOCYTES # (AUTO) 4.1 X 10^3 (1.0-4.0); LYMPHOCYTES % (AUTO) 18 % (12-44); MEAN CORPUSCULAR HEMOGLOBIN 32 PG (25-34); MEAN CORPUSCULAR HGB CONC 35 G/DL (32-36); MEAN CORPUSCULAR VOLUME 92 FL (80-99); MONOCYTES # (AUTO) 1.3 X 10^3 (0.0-1.0); MONOCYTES % (AUTO) 6 % (0-12); NEUTROPHILS # (AUTO) 17.7 X 10^3 (1.8-7.8); NEUTROPHILS % (AUTO) 76 % (42-75); PLATELET COUNT 235 10^3/uL (130-400); RED CELL DISTRIBUTION WIDTH 13.3 % (10.0-14.5); WHITE BLOOD COUNT 23.2 10^3/uL (4.3-11.0)
--- NOTE | 2019-07-18 08:00 | NUR ---
S.O. AT BEDSIDE. CARING FOR .
--- NOTE | 2019-07-18 09:30 | NUR ---
DR. GAUTHIER HERE TO SEE PT.
--- NOTE | 2019-07-18 09:43 | Discharge Summary ---
Diagnosis/Chief Complaint Date of Admission July 15, 2019 at 19:06 Date of Discharge July 18, 2019 Admission Diagnosis Admission Diagnosis Induction of labor at 40 3/7 wga. Discharge Diagnosis Post-op day 3 from primary LTCS for failure to progress and intolerance. Problems/Diagnosis: (1) Delivery by section of full-term Assessment & Plan: PTLCS done on 07/14. Patient stable, but elevated white count to 32,000. Otherwise asymptomatic and afebrile and trending down. Patient discharged with follow-up on 07/17. Will board with infant on post- flores. Discharge Summary-Simple/Stand Discharge Physical Examination Allergies: Coded Allergies: aripiprazole (Unverified Allergy, Mild, 06/09/19) Uncoded Allergies: VYVANCE (Allergy, Mild, 07/17/15) Vitals & I&Os Vital Sign - Last 12Hours Date Time Temp Pulse Resp B/P (MAP) Pulse Ox O2 Delivery O2 Flow Rate FiO2 07/18/19 03:11 36.5 89 18 92/50 (64) 97 Room Air 07/16/19 20:10 2 Intake and Output 07/18/19 00:00 Intake Total 1600 ml Output Total 1000 ml Balance 600 ml General Appearance: Alert, Oriented X3 HEENT: Atraumatic Respiratory: Clear to Auscultation Cardiovascular: Regular Rate Abdominal: Normal Bowel Sounds, Other (fundus firm and below umbilicus) Extremities: Other (trace edema) Skin: No Rashes Neuro: Normal Gait Psych/Mental Status: Mental Status NL Hospital Course Was the Problem List Reviewed?: Yes See final discharge diagnosis. Discharge Instructions to patient/family Please see electronic discharge instructions given to patient. Discharge Medications Reviewed and agree with Discharge Medication list on patient's Discharge Instruction sheet Clinical Quality Measures DVT/VTE Risk/Contraindication: Risk Factor Score Per Nursin RFS Level Per Nursing on Admit: 1=Low/No VTE PPX BUCKY GAUTHIER MD July 18, 2019 09:43
[2019-07-18 10:00] VITALS: BP 107/56
--- NOTE | 2019-07-18 10:00 | NUR ---
A.M. ASSESSMENT COMPLETED. VSS.
[2019-07-18] MEDS: DOCUSATE SODIUM 100 MG (COLACE) CAP PO SCH (10:21)
--- NOTE | 2019-07-18 11:00 | NUR ---
SHOWERED WITHOUT PROBLEMS.
--- NOTE | 2019-07-18 11:36 | NUR ---
LORTAB 5 MG P.O. FOR C/O ABD PAIN RATED 7/10. PT MOVES SLOWLY. S.O. CARING FOR INFANT MOST OF THE TIME. ENCOURAGED AMBULATION IN THE [facility] AGAIN AND ONCE PT GETS HOME TO AMBULATE IN HOUSE.
--- NOTE | 2019-07-18 12:45 | NUR ---
DISCHARGE INSTRUCTIONS REVIEWED WITH COPY TO PT. STATES UNDERSTANDING OF ALL INSTRUCTIONS AND NEED TO F/U SCHEDULED AND NEEDED. RXS GIVEN.
[2019-07-18 13:00] VITALS: BP 107/56
--- NOTE | 2019-07-18 13:00 | NUR ---
DISMISSED FROM [facility] VIA W/C WITH INFANT IN STABLE CONDITION TO WAITING FAMILY CAR ACC BY S.O. AND WS STAFF.
== END 2019-07-18 13:00 | disposition home or self-care (01) | DRG 787 ==
LOC: LDRP 19:06
PROVIDERS: ADMIT Family Medicine; ATTEND Family Medicine
PROC: 3E0P7GC Introduction of Other Therapeutic Substance into Female Reproductive, Via Natural or Artificial Opening (ICD-10-PCS; 2019-07-15)
PROC: 10D00Z1 Extraction of Products of Conception, Low, Open Approach (ICD-10-PCS; principal; 2019-07-16 18:56)
DX: O48.0 Post-term pregnancy (principal); O99.12 Other diseases of the blood and blood-forming organs and certain disorders involving the immune mechanism complicating childbirth; D72.829 Elevated white blood cell count, unspecified; Z37.0 Single live birth; O76 Abnormality in fetal heart rate and rhythm complicating labor and delivery; O62.2 Other uterine inertia; O99.344 Other mental disorders complicating childbirth; F41.9 Anxiety disorder, unspecified; F32.9 Major depressive disorder, single episode, unspecified; F90.9 Attention-deficit hyperactivity disorder, unspecified type; O99.334 Smoking (tobacco) complicating childbirth; F17.200 Nicotine dependence, unspecified, uncomplicated; Z3A.40 40 weeks gestation of pregnancy
CPT/HCPCS: 36415; 85007; 85025; 85027; 86780; 86850; 86900; 86901; 94664

== ENCOUNTER 2019-09-02 14:55 | Emergency (ER) | payer MEDICAID ==
[~2019-09-02] VITALS: Ht 157.5 cm; Wt 68.0 kg
[~2019-09-02 14:55] MED LIST changes: +DCS100C PO; +HYDR-83 PO; +IBUP-844 PO
--- NOTE | 2019-09-02 15:43 | ED GU-Female ---
General Chief Complaint: Female Reproductive Stated Complaint: VAGINAL BLEEDING Nursing Triage Note: PT REPORTS STARTING HER FIRST PERIOD SINCE HER THAT WAS ON July. PT STATES SHE HAS BEEN SOAKING THRU PADS FREQUENTLY AND HAS STARTED TO FEEL DIZZY AND LIGHT HEADED WHEN SHE STANDS. Nursing Sepsis Screen: No Definite Risk History of Present Illness Date Seen by Provider: Sep 02, 2019 Time Seen by Provider: 15:43 Initial Comments 24-year-old female comes in because she's a little bit dizzy and lightheaded when she stands. Patient reports this is her first period since a that was on July 15. That there. Started yesterday and is very heavy. She comes in today just to be evaluated since she saw a little lightheaded. She has been having it changed her pads frequently. She called her OB last recommended to be evaluated. She does not have any abnormal abdominal pain outside of her normal cramping with menstruation. No nausea vomiting fevers chills or other systemic complaints Allergies and Home Medications Allergies Coded Allergies: aripiprazole (Unverified Allergy, Mild, 06/09/19) Uncoded Allergies: VYVANCE (Allergy, Mild, 07/17/15) Home Medications Docusate Sodium 100 Mg Capsule, 100 MG PO BID PRN for CONSTIPATION-1ST LINE Prescribed by: ISSAC EID on 07/16/191901 Hydrocodone/Acetaminophen 1 Each Tablet, 1-2 TAB PO Q6HR PRN for PAIN-MODERATE (5-7) Prescribed by: ISSAC EID on 07/16/191901 Ibuprofen 600 Mg Tablet, 600 MG PO Q6H Prescribed by: ISSAC EID on 07/16/191901 Vit No.124/Iron/FA 1 Each Tablet, 1 EACH PO DAILY, (Reported) Patient Home Medication List Home Medication List Reviewed: Yes Review of Systems Review of Systems Constitutional: No chills; dizziness; No fever Respiratory: No cough, No short of breath Cardiovascular: No chest pain, No palpitations Gastrointestinal: No diarrhea, No nausea, No vomiting Genitourinary: see HPI : No Musculoskeletal: no symptoms reported Skin: no symptoms reported Psychiatric/Neurological: No Symptoms Reported Past Ehphctx-Gyczxj-Jdegcz Hx Past Med/Social Hx: Reviewed Nursing Past Med/Soc Hx Patient Social History Alcohol Use: Occasionally Uses Recreational Drug Use: No Drug of Choice: hx: marijuana- last use: beginning of preg; before she found out Smoking Status: Current Everyday Smoker Type Used: Cigarettes Former Smoker, Quit: May 12, 2019 2nd Hand Smoke Exposure: No Recent Foreign Travel: No Contact w/Someone Who Travel: No Recent Infectious Disease Expo: No Recent Hopitalizations: No Physical Abuse: No Sexual Abuse: No Immunizations Up To Date Tetanus Booster (TDap): Less than 5yrs Date of Influenza Vaccine: Feb 17, 2019 Seasonal Allergies Seasonal Allergies: No Past Medical History Surgeries: Yes (LEFT KNEE, wisdom teeth) Section, Orthopedic Respiratory: No Currently Using CPAP: No Currently Using BIPAP: No Cardiac: No Neurological: No Reproductive Disorders: No Sexually Transmitted Disease: No HIV/AIDS: No Genitourinary: No Gastrointestinal: No Musculoskeletal: No Endocrine: No HEENT: No Cancer: No Psychosocial: Yes ADD/ADHD, Anxiety, PTSD, Suicide Attempts, Bipolar, Schizophrenia, Violent Behavior, Depression Integumentary: Yes (MRSA by hx) Blood Disorders: No (ANEMIA, VIT D DEFICIENCY) Adverse Reaction/Blood Tranf: No Family Medical History Patient reports no known family medical history. No Pertinent Family Hx Physical Exam Vital Signs Vital Signs - First Documented 09/02/19 15:27 Temp 36.4 Pulse 85 Resp 12 B/P (MAP) 107/78 (88) Pulse Ox 97 Capillary Refill : Less Than 3 Seconds Height, Weight, BMI Height: 5'2.00" Weight: 120lbs. 0oz. [id number]; 27.00 BMI Method:Stated General Appearance: WD/WN, no apparent distress HEENT: PERRL/EOMI Cardiovascular: normal peripheral pulses, regular rate, rhythm Respiratory: chest non-tender, lungs clear, normal breath sounds Gastrointestinal: soft, tenderness (mild suprapubic) Pelvic: other (deferred) Extremities: normal range of motion Neurologic/Psychiatric: tax intern II-XII nml as tested, alert, normal mood/affect, oriented x 3 Skin: normal color, warm/dry Progress/Results/Core Measures Suspected Sepsis Recent Fever Within 48 Hours: No Infection Criteria Present: None New/Unexplained Altered Menta: No Sepsis Screen: No Definite Risk SIRS Temperature: Pulse: 85 Respiratory Rate: 12 Laboratory Tests 09/02/19 16:09: White Blood Count 8.9 Blood Pressure 107 /78 Mean: 88 Laboratory Tests 09/02/19 16:09: Platelet Count 373 Results/Orders Lab Results Laboratory Tests Test 09/02/19 16:09 Range/Units White Blood Count 8.9 4.3-11.0 10^3/uL Red Blood Count 4.24 L 4.35-5.85 10^6/uL Hemoglobin 12.5 11.5-16.0 G/DL Hematocrit 37 35-52 % Mean Corpuscular Volume 88 80-99 FL Mean Corpuscular Hemoglobin 29 25-34 PG Mean Corpuscular Hemoglobin Concent 34 32-36 G/DL Red Cell Distribution Width 12.4 10.0-14.5 % Platelet Count 373 130-400 10^3/uL Mean Platelet Volume 9.4 7.4-10.4 FL Neutrophils (%) (Auto) 59 42-75 % Lymphocytes (%) (Auto) 27 12-44 % Monocytes (%) (Auto) 9 0-12 % Eosinophils (%) (Auto) 6 0-10 % Basophils (%) (Auto) 0 0-10 % Neutrophils # (Auto) 5.2 1.8-7.8 X 10^3 Lymphocytes # (Auto) 2.4 1.0-4.0 X 10^3 Monocytes # (Auto) 0.8 0.0-1.0 X 10^3 Eosinophils # (Auto) 0.5 H 0.0-0.3 10^3/uL Basophils # (Auto) 0.0 0.0-0.1 10^3/uL My Orders Orders - SHANE SIM DO Cbc With Automated Diff (09/02/19 15:51) Ed Iv/Invasive Line Start (09/02/19 15:51) Lactated Ringers (Lr 1000 Ml Iv Solution (09/02/19 15:51) Medications Given in ED Current Medications Medications Dose Ordered Sig/Lupillo Route Start Time Stop Time Status Last Admin Dose Admin Lactated Ringer's 1,000 ml @ 0 mls/hr Q0M ONCE IV 09/02/19 15:51 09/02/19 15:52 DC 09/02/19 16:07 1,000 MLS/HR Vital Signs/I&O 09/02/19 15:27 Temp 36.4 Pulse 85 Resp 12 B/P (MAP) 107/78 (88) Pulse Ox 97 Capillary Refill : Less Than 3 Seconds Blood Pressure Mean: 88 Progress Note : Time: 16:47 Progress Note Patient feeling better following her IV fluids. Patient's hemoglobin is 12.5 and stable. Patient with some mild dehydration due to her her menstrual cycle and the heat. Discussed with her the need to make sure she stays extremely hydrated with his feet with her first menstruation since her . Voices unders tanding and will be discharged home Departure Impression Primary Impression: Dehydration Additional Impression: Heavy menstrual period Qualified Codes: N92.0 - Excessive and frequent menstruation with regular cycle Disposition: HOME, SELF-CARE Condition: Stable Departure-Patient Inst. Referrals: [facility] (PCP/Family) Primary Care Physician Patient Instructions: Heavy Periods, Why Water Is Important to Health, Dehydration, Adult (DC) Add. Discharge Instructions: Follow-up with your primary care provider and OB as needed. Ensure that you drink plenty of water and fluids All discharge instructions reviewed with patient and/or family. Voiced understanding. SHANE SIM DO Sep 02, 2019 15:43
[2019-09-02] MEDS ORDERED: LACTATED RINGERS 1,000 ML IV ONE (15:51)
[2019-09-02 16:14] LABS: BASOPHILS % (AUTO) 0 % (0-10); EOSINOPHILS # (AUTO) 0.5 10^3/uL (0.0-0.3); EOSINOPHILS % (AUTO) 6 % (0-10); HEMATOCRIT 37 % (35-52); HEMOGLOBIN 12.5 G/DL (11.5-16.0); LYMPHOCYTES # (AUTO) 2.4 X 10^3 (1.0-4.0); LYMPHOCYTES % (AUTO) 27 % (12-44); MEAN CORPUSCULAR HGB CONC 34 G/DL (32-36); MEAN CORPUSCULAR VOLUME 88 FL (80-99); MEAN PLATELET VOLUME 9.4 FL (7.4-10.4); MONOCYTES # (AUTO) 0.8 X 10^3 (0.0-1.0); MONOCYTES % (AUTO) 9 % (0-12); NEUTROPHILS # (AUTO) 5.2 X 10^3 (1.8-7.8); NEUTROPHILS % (AUTO) 59 % (42-75); PLATELET COUNT 373 10^3/uL (130-400); RED CELL DISTRIBUTION WIDTH 12.4 % (10.0-14.5); WHITE BLOOD COUNT 8.9 10^3/uL (4.3-11.0)
[2019-09-02 16:16] LABS: MEAN CORPUSCULAR HEMOGLOBIN 29 PG (25-34)
[2019-09-02 16:56] VITALS: BP 121/61
== END 2019-09-02 16:56 | disposition home or self-care (01) ==
LOC: EDUNIT# 14:55 → ER 14:57
DX: E86.0 Dehydration (principal); N92.0 Excessive and frequent menstruation with regular cycle; F90.9 Attention-deficit hyperactivity disorder, unspecified type; F43.10 Post-traumatic stress disorder, unspecified; F41.9 Anxiety disorder, unspecified; F31.9 Bipolar disorder, unspecified; F20.9 Schizophrenia, unspecified; Z88.8 Allergy status to other drugs, medicaments and biological substances; Z87.891 Personal history of nicotine dependence
CPT/HCPCS: 36415; 85025; 96360; 99281

== ENCOUNTER 2020-03-12 01:29 | Emergency (ER) | payer MEDICAID ==
[~2020-03-12] VITALS: Ht 157 cm; Wt 85.0 kg
[~2020-03-12 01:29] MED LIST changes: +ASCO250T16 PO; -C250T PO; -HYDR-83 PO
--- NOTE | 2020-03-12 02:52 | ED GU-Female ---
General Chief Complaint: Female Reproductive Stated Complaint: VAG BLEEDING Nursing Triage Note: Pt here with concern for heavy vaginal bleeding and large clot. Nursing Sepsis Screen: No Definite Risk Source: patient Exam Limitations: no limitations History of Present Illness Date Seen by Provider: Mar 12, 2020 Time Seen by Provider: 02:25 Initial Comments Patient presents to the ER with her mother and chief complaint of having passed some tissue from the vagina tonight. She is on day 2 of her menstrual cycle. She says she did not have a period in February. She says she is often irregular when on control and she started NuvaRing after her last delivery [address] Liu is her primary care provider. She says 2 months ago when she had a. She passed a clear fluid-filled sac. She checked a urine during her period 2 months ago and it was negative. She checked a urine 2 days ago and it was negative. By the time she got in the car to come to the ER her pain had pretty much subsided. She did not have to take an ything for pain. She has a history of bipolar and paranoid schizophrenia. She is sexually active and prefers men. She denies dysuria or discharge. Allergies and Home Medications Allergies Coded Allergies: aripiprazole (Unverified Allergy, Mild, 06/09/19) Uncoded Allergies: VYVANCE (Allergy, Mild, 07/17/15) Home Medications Docusate Sodium 100 Mg Capsule, 100 MG PO BID PRN for CONSTIPATION-1ST LINE Prescribed by: ISSAC EID on 07/16/191901 Hydrocodone/Acetaminophen 1 Each Tablet, 1-2 TAB PO Q6HR PRN for PAIN-MODERATE (5-7) Prescribed by: ISSAC EID on 07/16/191901 Ibuprofen 600 Mg Tablet, 600 MG PO Q6H Prescribed by: ISSAC EID on 07/16/191901 Vit No.124/Iron/FA 1 Each Tablet, 1 EACH PO DAILY, (Reported) Patient Home Medication List Home Medication List Reviewed: Yes Review of Systems Review of Systems Constitutional: No chills, No diaphoresis EENTM: No ear discharge, No ear pain Respiratory: No cough, No short of breath Cardiovascular: No chest pain, No palpitations Gastrointestinal: abdominal pain; No diarrhea, No dysphagia, No nausea Genitourinary: see HPI; denies burning, denies discharge Musculoskeletal: No back pain, No joint pain All Other Systemes Reviewed Negative Unless Noted: Yes Past Fmktfuj-Wffblp-Uxwusg Hx Patient Social History Alcohol Use: Denies Use Recreational Drug Use: Yes Drug of Choice: hx: marijuana- last use: beginning of preg; before she found out Smoking Status: Former Smoker Type Used: Cigarettes Former Smoker, Quit: May 12, 2019 2nd Hand Smoke Exposure: No Recent Foreign Travel: No Contact w/Someone Who Travel: No Recent Infectious Disease Expo: No Recent Hopitalizations: No Immunizations Up To Date Tetanus Booster (TDap): Less than 5yrs Date of Influenza Vaccine: Feb 17, 2019 Seasonal Allergies Seasonal Allergies: No Past Medical History Surgeries: Yes (LEFT KNEE, wisdom teeth) Section, Orthopedic Respiratory: No Currently Using CPAP: No Currently Using BIPAP: No Cardiac: No Neurological: No : No Reproductive Disorders: No Sexually Transmitted Disease: No HIV/AIDS: No Genitourinary: No Gastrointestinal: No Musculoskeletal: No Endocrine: No HEENT: No Cancer: No Psychosocial: Yes ADD/ADHD, Anxiety, PTSD, Suicide Attempts, Bipolar, Schizophrenia, Violent Behavior, Depression Integumentary: Yes (MRSA by hx) Blood Disorders: No (ANEMIA, VIT D DEFICIENCY) Adverse Reaction/Blood Tranf: No Family Medical History Patient reports no known family medical history. No Pertinent Family Hx Physical Exam Vital Signs Vital Signs - First Documented 03/12/20 02:35 Temp 37.5 Pulse 97 Resp 18 B/P (MAP) 130/98 (109) Pulse Ox 98 O2 Delivery Room Air Capillary Refill : Less Than 3 Seconds Height, Weight, BMI Height: 5'2.00" Weight: 120lbs. 0oz. 54.766866aa; 34.00 BMI Method:Stated General Appearance: WD/WN, no apparent distress Neck: full range of motion, normal inspection Cardiovascular: normal peripheral pulses, regular rate, rhythm Respiratory: no respiratory distress, no accessory muscle use Extremities: normal range of motion, normal inspection Neurologic/Psychiatric: no motor/sensory deficits, alert, normal mood/affect, oriented x 3 Skin: normal color, warm/dry Progress/Results/Core Measures Suspected Sepsis Recent Fever Within 48 Hours: No Infection Criteria Present: None New/Unexplained Altered Menta: No Sepsis Screen: No Definite Risk SIRS Temperature: Pulse: 97 Respiratory Rate: 18 Blood Pressure 130 /98 Mean: 109 Results/Orders Lab Results Laboratory Tests Test 03/12/20 02:50 Range/Units Urine Color RED H Urine Clarity CLEAR Urine pH 6.5 5-9 Urine Specific [place] 1.025 H 1.016-1.022 Urine Protein 2+ H NEGATIVE Urine Glucose (UA) NEGATIVE NEGATIVE Urine Ketones TRACE H NEGATIVE Urine Nitrite POSITIVE H NEGATIVE Urine Bilirubin NEGATIVE NEGATIVE Urine Urobilinogen 1.0 < = 1.0 MG/DL Urine Leukocyte Esterase TRACE H NEGATIVE Urine RBC (Auto) 3+ H NEGATIVE Urine RBC TNTC H /HPF Urine WBC NONE /HPF Urine Squamous Epithelial Cells 2-5 /HPF Urine Crystals NONE /LPF Urine Bacteria TRACE /HPF Urine Casts NONE /LPF Urine Mucus MODERATE H /LPF Urine Culture Indicated NO My Orders Orders - LEE TENORIO Ua Culture If Indicated (03/12/20 02:45) Urine Bedside (03/12/20 02:45) Vital Signs/I&O 03/12/20 02:35 Temp 37.5 Pulse 97 Resp 18 B/P (MAP) 130/98 (109) Pulse Ox 98 O2 Delivery Room Air Capillary Refill : Less Than 3 Seconds Blood Pressure Mean: 109 Progress Note : Time: 02:51 Progress Note The patient is not in any distress. She showed us a picture of what looks like some nondescript tissue surrounded by a little blood clot. Based on her story of 2 months ago passing a second this month passing some tissue she could either have had a miscarriage and that would explain why she had a negative test 2 days ago or she could have an endometrial shed. We did offer to set her up for an outpatient ultrasound and encouraged her to follow-up with Dr. Liu. She is not requiring anything for pain. We recommended Tylenol and Motrin. Normal vital signs. Departure Impression Primary Impression: Metrorrhagia Additional Impressions: Pelvic cramping UTI (urinary tract infection) Qualified Codes: N30.01 - Acute cystitis with hematuria Disposition: HOME, SELF-CARE Condition: Stable Departure-Patient Inst. Decision time for Depature: 02:55 Referrals: [facility] (PCP/Family) Primary Care Physician Patient Instructions: Absent or Irregular Periods, Menstrual Cramps (DC) Add. Discharge Instructions: It is possible that the tissue you saw in the toilet tonight was part of an endometrial shed or an intact portion of the lining of your uterus. When these pass they can sometimes be more painful. Another possibility is that there was a miscarriage however this is less likely given your use of the NuvaRing. I would suggest pelvic rest until you see your primary care provider, Dr. Liu in the next 2 to 3 weeks. If you would like an ultrasound you may set this up outpatient and follow-up with Dr. Liu for results. Tylenol and Motrin as necessary for pain. Macrobid 1 tablet twice a day for the next 7 days for UTI. All discharge instructions reviewed with patient and/or family. Voiced understanding. Scripts Nitrofurantoin Monohyd/M-Cryst (Macrobid 100 mg Capsule) 100 Mg Capsule 1 TAB PO BID for 7 Days, #14 CAP 0 Refills Prov: LEE TENORIO 03/12/20 LEE TNEORIO Mar 12, 2020 02:52
[2020-03-12 02:57] LABS: BILIRUBIN,URINE NEGATIVE (NEGATIVE); CLARITY,URINE CLEAR; COLOR,URINE RED; GLUCOSE, URINE (UA) NEGATIVE (NEGATIVE); KETONES,URINE TRACE (NEGATIVE); LEUKOCYTE ESTERASE ,URINE TRACE (NEGATIVE); NITRITE,URINE POSITIVE (NEGATIVE); PH,URINE 6.5 (5-9); PROTEIN,URINE 2+ (NEGATIVE)
[2020-03-12 03:14] LABS: BACTERIA,URINE TRACE /HPF; RBC,URINE TNTC /HPF
[2020-03-12] MEDS ORDERED: NITR-65 PO (04:17)
[2020-03-12 04:26] VITALS: BP 130/98
== END 2020-03-12 04:25 | disposition home or self-care (01) ==
LOC: EDUNIT# 01:29 → ER 01:32
DX: N92.1 Excessive and frequent menstruation with irregular cycle (principal); R10.2 Pelvic and perineal pain; N39.0 Urinary tract infection, site not specified; Z87.891 Personal history of nicotine dependence; Z88.8 Allergy status to other drugs, medicaments and biological substances
CPT/HCPCS: 81000; 84703; 99282

== ENCOUNTER → 2020-03-15 | Outpatient (CLI) | payer MEDICAID ==
--- NOTE | 2020-03-15 10:33 | Diagnostic Imaging Report ---
PROCEDURE: US Non-ob pelvis comp/trans. TECHNIQUE: Multiple realtime grayscale images were obtained of the pelvis in various projections endovaginally. Transabdominal imaging was also performed. INDICATION: Pelvic cramps. COMPARISON: None available. FINDINGS: The uterus measures 6.3 x 6.3 x 4.5 cm. The myometrium is normal in echogenicity without discrete mass. The endometrium measures up to 0.5 cm where visualized, and is normal in echogenicity. The right ovary measures 3.3 x 1.5 x 2.6 cm. The left ovary measures 2.5 x 1.6 x 2.6 cm. Both ovaries are physiologic in appearance. Blood flow is seen in both ovaries on color doppler imaging. No suspicious adnexal mass or fluid collection. Trace simple fluid within the cul-de-sac can be considered physiologic in a premenopausal female. IMPRESSION: 1. Physiologic appearance of the ovaries. 2. No myometrial mass. 3. Endometrium is normal in appearance. Dictated by: Dictated on workstation # [id number]
== END ==
LOC: RAD 08:00
PROVIDERS: ATTEND Emergency Medicine
DX: N92.1 Excessive and frequent menstruation with irregular cycle (principal)
CPT/HCPCS: 76830; 76856

== ENCOUNTER 2020-12-15 22:47 | Emergency (ER) | payer MEDICAID ==
[~2020-12-15] VITALS: Ht 62 cm; Wt 61.7 kg
[~2020-12-15 22:47] MED LIST changes: -DCS100C PO; +DOCU-239 PO; +SERT-414 PO; -SERT100T8 PO; -SULF1TAB35 PO
--- NOTE | 2020-12-16 00:07 | ED EENT ---
History of Present Illness General Chief Complaint: Ear Problems Stated Complaint: R EAR PAIN/ NUMBNESS Nursing Triage Note: Pt arrives via POV from home with c/o right sided ear pain; onset this AM. Pt reports hx of ear infections. Source: patient Exam Limitations: no limitations History of Present Illness Date Seen by Provider: Dec 16, 2020 Time Seen by Provider: 23:55 Initial Comments Patient is a 25-year-old female who presents to the emergency room with a chief complaint of right-sided ear pain onset this morning. She states it is progressively worsened throughout the day. Mild sore throat. No sick contacts reported. No fevers chills, nausea vomiting. No other complaints of illness. She did develop a mild headache on the way to the emergency room to be checked out this evening. She only took 1 Tylenol earlier in the evening without any relief of symptoms. All other review of systems reviewed and negative except as stated. Timing/Duration: gradual Severity: moderate Location: ear (R) Prearrival Treatment: over the counter meds (1 tylenol) Associated Symptoms: sore throat (mild) Allergies and Home Medications Allergies Coded Allergies: aripiprazole (Unverified Allergy, Mild, 06/09/19) Uncoded Allergies: VYVANCE (Allergy, Mild, 07/17/15) Patient Home Medication List Home Medication List Reviewed: Yes Buspirone HCl (Buspirone HCl) 10 Mg Tablet, 10 MG PO, (Reported) Entered as Reported by: ELIZABETH SERRANO on 06/10/197 Docusate Sodium (Dok) 100 Mg Capsule, 100 MG PO BID PRN for CONSTIPATION-1ST LINE Prescribed by: ISSAC EID on 07/16/191901 Hydrocodone/Acetaminophen (Hydrocodone-Acetamin 5-325 mg) 1 Each Tablet, 1-2 TAB PO Q6HR PRN for PAIN-MODERATE (5-7) Prescribed by: ISSAC EID on 07/16/191901 Ibuprofen (Ibu) 600 Mg Tablet, 600 MG PO Q6H Prescribed by: ISSAC EID on 07/16/191901 Nitrofurantoin Monohyd/M-Cryst (Macrobid 100 mg Capsule) 100 Mg Capsule, 1 TAB PO BID Prescribed by: LEE TENORIO on 03/12/20 0417 Vit No.124/Iron/FA ( Vitamin Tablet) 1 Each Tablet, 1 EACH PO DAILY, (Reported) Entered as Reported by: SHAHRAM ORTEGA on 03/02/19 0053 Review of Systems Review of Systems Constitutional: no symptoms reported Eyes: No Symptoms Reported Ears: Pain (right ear - "numbness" to upper cartiledge) Nose: no symptoms reported Mouth: no symptoms reported Throat: pain (mild) Respiratory: no symptoms reported Cardiovascular: no symptoms reported Gastrointestinal: no symptoms reported : No Musculoskeletal: no symptoms reported Skin: no symptoms reported Neurological: No Symptoms Reported All Other Systems Reviewed Negative Unless Noted: Yes Past Etbxrcs-Clgwrp-Junqxz Hx Patient Social History Tobacco Use?: Yes Smoking Status: Current Everyday Smoker Use of E-Cig and/or Vaping dev: Yes E-Cig or Vaping type used: Nicotine Use of E-Cig and/or Vaping Zachary: Current Everyday User Substance use?: No Alcohol Use?: Yes Alcohol Frequency: Once in a while Pt feels they are or have been: No Immunizations Up To Date Tetanus Booster (TDap): Less than 5yrs COVID19 Vaccine Home Day Care Provider: [facility] Seasonal Allergies Seasonal Allergies: No Past Medical History Surgeries: Yes (LEFT KNEE, wisdom teeth) Section, Orthopedic Respiratory: No Currently Using CPAP: No Currently Using BIPAP: No Cardiac: No Neurological: No Reproductive Disorders: No Sexually Transmitted Disease: No HIV/AIDS: No Genitourinary: No Gastrointestinal: No Musculoskeletal: No Endocrine: No HEENT: No Cancer: No Psychosocial: Yes ADD/ADHD, Anxiety, PTSD, Suicide Attempts, Bipolar, Schizophrenia, Violent Behavior, Depression Integumentary: Yes (MRSA by hx) Blood Disorders: No (ANEMIA, VIT D DEFICIENCY) Adverse Reaction/Blood Tranf: No Family Medical History Patient reports no known family medical history. No Pertinent Family Hx Physical Exam Vital Signs Vital Signs - First Documented 12/15/20 23:09 Temp 37.1 Pulse 81 Resp 18 B/P (MAP) 111/82 (92) Pulse Ox 99 O2 Delivery Room Air Height, Weight, BMI Height: 5'2.00" Weight: 120lbs. 0oz. 54.256999vj; 160.00 BMI Method:Stated General Appearance: WD/WN, no apparent distress Eyes: bilateral eye normal inspection, bilateral eye PERRL, bilateral eye EOMI Ears: right ear TM dull, right ear TM bulging, right ear other (without erythema of the TM); left ear TM normal; bilateral ear auricle normal, bilateral ear canal normal Nose: normal inspection Mouth/Throat: normal mouth inspection, other (significant pharyngeal erythema posterior pharynx, with right greater than left tonsillar prominence) Neck: supple, normal inspection Cardiovascular: regular rate, rhythm Respiratory: lungs clear, normal breath sounds, no respiratory distress, no accessory muscle use Neurologic/Psychiatric: alert, normal mood/affect, oriented x 3 Skin: normal color, warm/dry Progress/Results/Core Measures Results/Orders Lab Results Laboratory Tests Test 12/16/20 00:17 Range/Units Group A Streptococcus Screen NEGATIVE NEGATIVE My Orders Orders - RENZO LAZO MD Ibuprofen Tablet (Motrin Tablet) (12/16/20 00:15) Rapid Strep A Screen (12/16/20 00:07) Medications Given in ED Current Medications Medications Dose Ordered Sig/Lupillo Route Start Time Stop Time Status Last Admin Dose Admin Ibuprofen 600 mg ONCE ONCE PO 12/16/20 00:15 12/16/20 00:16 DC 12/16/20 00:19 600 MG Vital Signs/I&O 12/15/20 23:09 Temp 37.1 Pulse 81 Resp 18 B/P (MAP) 111/82 (92) Pulse Ox 99 O2 Delivery Room Air Blood Pressure Mean: 92 Progress Progress Note : Time: 00:43 Progress Note Rapid strep screen negative, will recommend supportive care with Benadryl/or generic Mercedes, ibuprofen for pain. Follow-up with primary care. Departure Impression Primary Impression: Otalgia, right ear Additional Impression: Viral pharyngitis Disposition: 01 HOME, SELF-CARE Condition: Stable Departure-Patient Inst. Decision time for Depature: 00:44 Referrals: [facility] (PCP/Family) Primary Care Physician Patient Instructions: Sore Throat, Adult ED Add. Discharge Instructions: Drink plenty of fluids to stay well-hydrated. Take [id number] ibuprofen, 3 tablets which is 600 mg every 6 hours with food as needed for pain. This may help more than Tylenol. Generic Benadryl will help with the fluid behind your right ear. Your generic Mecredes may also help with this, dosing as directed on the package. Return to the emergency room for any fevers over 101, worsening ear pain, rashes, vomiting or any other emergent concerning symptoms. Please follow-up with your primary care provider as needed. RENZO LAZO MD Dec 16, 2020 00:07
[2020-12-16] MEDS ORDERED: IBUPROFEN 600 MG (MOTRIN) TAB PO ONE (00:15)
[2020-12-16 00:50] VITALS: BP 115/76
== END 2020-12-16 00:54 | disposition home or self-care (01) ==
LOC: EDUNIT# 22:47 → ER 22:49
DX: H92.01 Otalgia, right ear (principal); J02.8 Acute pharyngitis due to other specified organisms; F41.9 Anxiety disorder, unspecified; F17.200 Nicotine dependence, unspecified, uncomplicated; Z86.16 Personal history of COVID-19; Z79.899 Other long term (current) drug therapy
CPT/HCPCS: 87430; 99283

== ENCOUNTER 2021-07-01 04:44 | Emergency (ER) | payer MEDICAID ==
[~2021-07-01] VITALS: Ht 157.5 cm; Wt 61.7 kg
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
[2021-07-01] MEDS ORDERED: ACETAMINOPHEN 500 MG TAB (TYLENOL) PO ONE (05:30)
[2021-07-01 06:17] VITALS: BP 128/92
--- NOTE | 2021-07-01 06:24 | Diagnostic Imaging Report ---
INDICATION: Elbow pain COMPARISON: None available. TECHNIQUE: 3 radiographs of the left elbow dated 07/01/2021. FINDINGS: No acute fracture or dislocation. No destructive osseous process. No definite elbow joint effusion, although evaluation slightly limited secondary to positioning. Mild soft tissue swelling noted involving the posterior aspect of the elbow and distal humeral region. No suspicious radiopaque foreign body. IMPRESSION: No acute osseous abnormality mild soft tissue swelling about the elbow. Dictated by: Dictated on workstation # [id number]
--- NOTE | 2021-07-01 06:28 | Diagnostic Imaging Report ---
INDICATION: Shoulder pain COMPARISON: None available TECHNIQUE: 3 radiographs of the left shoulder dated 07/01/2021. FINDINGS: The acromioclavicular joint is unremarkable. No acute fracture or dislocation. No destructive osseous process. IMPRESSION: No acute osseous abnormality. Dictated by: Dictated on workstation # [id number]
== END 2021-07-01 06:17 | disposition home or self-care (01) ==
LOC: EDUNIT# 04:44 → ER 04:47
DX: S50.02XA Contusion of left elbow, initial encounter (principal); M25.511 Pain in right shoulder; V49.00XA Driver injured in collision with unspecified motor vehicles in nontraffic accident, initial encounter; Y92.481 Parking lot as the place of occurrence of the external cause
CPT/HCPCS: 73030; 73080; 99283; A4565

== ENCOUNTER 2022-05-04 19:51 | Emergency (ER) | payer MEDICAID ==
[~2022-05-04] VITALS: Ht 157.5 cm; Wt 60.7 kg
[2022-05-04 20:07] VITALS: BP 108/72
[2022-05-04] MEDS ORDERED: NS IV 1000 ML 1,000 ML IV STA (20:18)
--- NOTE | 2022-05-04 20:20 | ED Cough/URI ---
General Chief Complaint: Fever-Adult/Adol Stated Complaint: FLU SYMPTOMS Nursing Triage Note: Pt presents with c/o fever, body aches, headache and cough that started last night. She states it has worsened throughout the day and went to the clinic earlier where she was tested for strep. Source: patient Exam Limitations: no limitations History of Present Illness Date Seen by Provider: May 04, 2022 Time Seen by Provider: 20:19 Initial Comments Patient is a 27-year-old female who presents ED with flulike symptoms. Symptoms started last night with chills, body aches, nasal congestion, sore throat headache and cough. Symptoms became worse today. She reports a temperature of 103 at home. Patient reports 2 episodes of nonbilious vomiting. Denies any diarrhea. Generalized body aches and pains. She also reports sore throat. Went to [facility] clinic today had a negative strep. 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 Denies of any urinary symptoms but currently on her menstrual cycle. Denies abdominal pain, chest pain, neck pain. She does report generalized head pain. Patient appears ill. No known medical problems Allergies and Home Medications Allergies Coded Allergies: aripiprazole (Unverified Allergy, Mild, 06/09/19) Uncoded Allergies: VYVANCE (Allergy, Mild, 07/17/15) Patient Home Medication List Home Medication List Reviewed: Yes Buspirone HCl (Buspirone HCl) 10 Mg Tablet, 10 MG PO, (Reported) Entered as Reported by: ELIZABETH SERRANO on 06/10/197 Cephalexin (Cephalexin) 500 Mg Tablet, 500 MG PO BID Prescribed by: ESDRAS COVARRUBIAS on 05/04/222153 Docusate Sodium (Dok) 100 Mg Capsule, 100 MG PO BID PRN for CONSTIPATION-1ST LINE Prescribed by: ISSAC EID on 07/16/191901 Hydrocodone/Acetaminophen (Hydrocodone-Acetamin 5-325 mg) 1 Each Tablet, 1-2 TAB PO Q6HR PRN for PAIN-MODERATE (5-7) Prescribed by: ISSAC EID on 07/16/191901 Ibuprofen (Ibu) 600 Mg Tablet, 600 MG PO Q6H Prescribed by: ISSAC EID on 07/16/191901 Nitrofurantoin Monohyd/M-Cryst (Macrobid 100 mg Capsule) 100 Mg Capsule, 1 TAB PO BID Prescribed by: LEE TENORIO on 03/12/20 0417 Vit No.124/Iron/FA ( Vitamin Tablet) 1 Each Tablet, 1 EACH PO DAILY, (Reported) Entered as Reported by: SHAHRAM ORTEGA on 03/02/19 0053 Review of Systems Review of Systems Constitutional: chills; No diaphoresis; fever, malaise, weakness EENTM: nose congestion, throat pain; No mouth pain, No mouth swelling Cardiovascular: No chest pain Gastrointestinal: No abdominal pain, No diarrhea; nausea, vomiting Genitourinary: No decreased output, No discharge, No frequency; other (Vaginal bleeding) Musculoskeletal: No back pain, No joint pain Skin: No change in color, No change in hair/nails All Other Systems Reviewed Negative Unless Noted: Yes Past Qpeevsx-Zqyfmb-Dmyucx Hx Immunizations Up To Date Tetanus Booster (TDap): Less than 5yrs Seasonal Allergies Seasonal Allergies: No Past Medical History Surgeries: Yes (LEFT KNEE, wisdom teeth) Section, Orthopedic Respiratory: No Currently Using CPAP: No Currently Using BIPAP: No Cardiac: No Neurological: No Reproductive Disorders: No Sexually Transmitted Disease: No HIV/AIDS: No Genitourinary: No Gastrointestinal: No Musculoskeletal: No Endocrine: No HEENT: No Cancer: No Psychosocial: Yes ADD/ADHD, Anxiety, PTSD, Suicide Attempts, Bipolar, Schizophrenia, Violent Behavior, Depression Integumentary: Yes (MRSA by hx) Blood Disorders: No (ANEMIA, VIT D DEFICIENCY) Adverse Reaction/Blood Tranf: No Family Medical History Patient reports no known family medical history. No Pertinent Family Hx Physical Exam Vital Signs - First Documented 05/04/22 20:07 Temp 38.8 Pulse 106 Resp 16 B/P (MAP) 108/72 (84) Capillary Refill : Less Than 3 Seconds Height: 5'2.00" Weight: 120lbs. 0oz. 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, no motor/sensory deficits, alert, normal mood/affect, oriented x 3 Skin: normal color, warm/dry Progress/Results/Core Measures Suspected Sepsis SIRS Temperature: Pulse: 106 Respiratory Rate: 16 Laboratory Tests 05/04/22 20:40: White Blood Count 15.5H Blood Pressure 108 /72 Mean: 84 Laboratory Tests 05/04/22 20:40: Creatinine 0.72, Platelet Count 225, Total Bilirubin 0.6 Results/Orders Lab Results Laboratory Tests Test 05/04/22 20:26 05/04/22 20:40 05/04/22 21:30 Range/Units Influenza Type A (RT-PCR) Not Detected Not Detecte Influenza Type B (RT-PCR) Not Detected Not Detecte SARS-CoV-2 RNA (RT-PCR) Not Detected Not Detecte White Blood Count 15.5 H 4.3-11.0 10^3/uL Red Blood Count 4.24 3.80-5.11 10^6/uL Hemoglobin 11.7 11.5-16.0 g/dL Hematocrit 35 35-52 % Mean Corpuscular Volume 81 80-99 fL Mean Corpuscular Hemoglobin 28 25-34 pg Mean Corpuscular Hemoglobin Concent 34 32-36 g/dL Red Cell Distribution Width 15.1 H 10.0-14.5 % Platelet Count 225 130-400 10^3/uL Mean Platelet Volume 9.9 9.0-12.2 fL Immature Granulocyte % (Auto) 0 % Neutrophils (%) (Auto) 81 H 42-75 % Lymphocytes (%) (Auto) 10 L 12-44 % Monocytes (%) (Auto) 8 0-12 % Eosinophils (%) (Auto) 1 0-10 % Basophils (%) (Auto) 0 0-10 % Neutrophils # (Auto) 12.5 H 1.8-7.8 10^3/uL Lymphocytes # (Auto) 1.6 1.0-4.0 10^3/uL Monocytes # (Auto) 1.2 H 0.0-1.0 10^3/uL Eosinophils # (Auto) 0.2 0.0-0.3 10^3/uL Basophils # (Auto) 0.0 0.0-0.1 10^3/uL Immature Granulocyte # (Auto) 0.1 0.0-0.1 10^3/uL Neutrophils % (Manual) 81 % Lymphocytes % (Manual) 15 % Monocytes % (Manual) 3 % Eosinophils % (Manual) 1 % Blood Morphology Comment NORMAL Erythrocyte Sedimentation Rate 8 0-20 MM/HR Sodium Level 136 135-145 MMOL/L Potassium Level 3.4 L 3.6-5.0 MMOL/L Chloride Level 105 98-107 MMOL/L Carbon Dioxide Level 21 21-32 MMOL/L Anion Gap 10 5-14 MMOL/L Blood Urea Nitrogen 7 7-18 MG/DL Creatinine 0.72 0.60-1.30 MG/DL Estimat Glomerular Filtration Rate 119 BUN/Creatinine Ratio 10 Glucose Level 94 70-105 MG/DL Calcium Level 8.9 8.5-10.1 MG/DL Corrected Calcium 8.7 8.5-10.1 MG/DL Total Bilirubin 0.6 0.1-1.0 MG/DL Aspartate Amino Transf (AST/SGOT) 15 5-34 U/L Alanine Aminotransferase (ALT/SGPT) 11 0-55 U/L Alkaline Phosphatase 80 40-136 U/L Total Protein 7.3 6.4-8.2 GM/DL Albumin 4.3 3.2-4.5 GM/DL Monoscreen NEGATIVE NEGATIVE Urine Color YELLOW Urine Clarity CLEAR Urine pH 6.5 5-9 Urine Specific [place] 1.020 1.016-1.022 Urine Protein NEGATIVE NEGATIVE Urine Glucose (UA) NEGATIVE NEGATIVE Urine Ketones 1+ H NEGATIVE Urine Nitrite NEGATIVE NEGATIVE Urine Bilirubin 1+ H NEGATIVE Urine Urobilinogen 1.0 < = 1.0 MG/DL Urine Leukocyte Esterase NEGATIVE NEGATIVE Urine RBC (Auto) 3+ H NEGATIVE Urine RBC 2-5 H /HPF Urine WBC 0-2 /HPF Urine Squamous Epithelial Cells 2-5 /HPF Urine Crystals NONE /LPF Urine Bacteria MODERATE H /HPF Urine Casts PRESENT /LPF Urine Mucus LARGE H /LPF Urine Culture Indicated YES Urine Test NEGATIVE NEGATIVE My Orders Orders - SEBAS LOTT Ns Iv 1000 Ml (Sodium Chloride 0.9%) (05/04/22 20:18) Cbc With Automated Diff (05/04/22 20:18) Comprehensive Metabolic Panel (05/04/22 20:18) Covid 19 Inhouse Test (05/04/22 20:18) Influenza A And B By Pcr (05/04/22 20:18) Ua Culture If Indicated (05/04/22 20:18) Hcg,Qualitative Urine (05/04/22 20:18) Ketorolac Injection (Toradol Injection) (05/04/22 20:30) Manual Differential (05/04/22 20:40) Erythrocyte Sedimentation Rate (05/04/22 21:01) Monotest (05/04/22 21:02) Urine Culture (05/04/22 21:30) Cephalexin Capsule (Keflex Capsule) (05/04/22 21:52) Medications Given in ED Vital Signs/I&O 05/04/22 20:07 Temp 38.8 Pulse 106 Resp 16 B/P (MAP) 108/72 (84) Capillary Refill : Less Than 3 Seconds Blood Pressure Mean: 84 Departure Communication (PCP) Patient with flulike symptoms. She was febrile and tachycardic. Tachycardic likely secondary to the fever. She does not appear toxic. Due to her current complaints CBC, CMP, COVID influenza, and urine was ordered. Concern for viral syndrome, UTI, pneumonia, strep pharyngitis, otitis media. Patient CBC showed a white blood count of 15. Patient was febrile and was given Toradol for the fever with improvement to 99.9. Patient was given a liter of fluid secondary to her tachycardia and fever. This improved the tachycardia. Monotest was ordered secondary to the elevated monocyte. Monotest was negative. No abdominal tenderness. Urinalysis with hematuria and moderate bacteria/mucus. Possible source of infection UTI. Will treat with Keflex. Patient Was given a dose here in the ED. patient lung sounds clear bilateral. No wheezing or rhonchi suggesting pneumonia. Oropharynx patent without evidence of exudate, tonsillar swelling suggesting strep pharyngitis. Bilateral TMs clear. 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 This is likely more viral in nature. Continue with conservative treatment with Tylenol, ibuprofen, fluids. Discharged with Keflex. No further work-up at this time. She is otherwise healthy. If any worsening symptoms such as severe abdominal pain, worsening cough, continue high fever greater than 103 to return back to ED Impression Primary Impression: UTI (urinary tract infection) Disposition: 01 HOME, SELF-CARE Condition: Stable Departure-Patient Inst. Decision time for Depature: 21:54 Referrals: [facility] (PCP/Family) Primary Care Physician Patient Instructions: Urinary Tract Infections in Adults Scripts Cephalexin (Cephalexin) 500 Mg Tablet 500 MG PO BID for 7 Days, #14 TAB Prov: SEBAS LOTT 05/04/22 Work/School Note: Work Release Form Date Seen in the Emergency Department: May 04, 2022 Return to Work: May 07, 2022 SEBAS LOTT May 04, 2022 20:20
[2022-05-04] MEDS ORDERED: KETOROLAC 30 MG/ML VIAL IVP ONE (20:30)
[2022-05-04 20:47] LABS: BASOPHILS % (AUTO) 0 % (0-10); EOSINOPHILS # (AUTO) 0.2 10^3/uL (0.0-0.3); EOSINOPHILS % (AUTO) 1 % (0-10); HEMATOCRIT 35 % (35-52); HEMOGLOBIN 11.7 g/dL (11.5-16.0); LYMPHOCYTES # (AUTO) 1.6 10^3/uL (1.0-4.0); LYMPHOCYTES % (AUTO) 10 % (12-44); MEAN CORPUSCULAR HEMOGLOBIN 28 pg (25-34); MEAN CORPUSCULAR HGB CONC 34 g/dL (32-36); MEAN CORPUSCULAR VOLUME 81 fL (80-99); MEAN PLATELET VOLUME 9.9 fL (9.0-12.2); MONOCYTES # (AUTO) 1.2 10^3/uL (0.0-1.0); MONOCYTES % (AUTO) 8 % (0-12); NEUTROPHILS # (AUTO) 12.5 10^3/uL (1.8-7.8); NEUTROPHILS % (AUTO) 81 % (42-75); PLATELET COUNT 225 10^3/uL (130-400); WHITE BLOOD COUNT 15.5 10^3/uL (4.3-11.0)
[2022-05-04 21:15] LABS: ALBUMIN 4.3 GM/DL (3.2-4.5); BILIRUBIN,TOTAL 0.6 MG/DL (0.1-1.0); CALCIUM 8.9 MG/DL (8.5-10.1); CREATININE SERUM 0.72 MG/DL (0.60-1.30); POTASSIUM 3.4 MMOL/L (3.6-5.0); TOTAL PROTEIN 7.3 GM/DL (6.4-8.2)
[2022-05-04 21:19] LABS: EOSINOPHILS % (MANUAL) 1 %; LYMPHOCYTES % (MANUAL) 15 %; MONOCYTES % (MANUAL) 3 %; NEUTROPHILS % (MANUAL) 81 %; RBC MORPH NORMAL
[2022-05-04 21:41] LABS: BILIRUBIN,URINE 1+ (NEGATIVE); CLARITY,URINE CLEAR; COLOR,URINE YELLOW; GLUCOSE, URINE (UA) NEGATIVE (NEGATIVE); KETONES,URINE 1+ (NEGATIVE); LEUKOCYTE ESTERASE ,URINE NEGATIVE (NEGATIVE); NITRITE,URINE NEGATIVE (NEGATIVE); PH,URINE 6.5 (5-9); PROTEIN,URINE NEGATIVE (NEGATIVE)
[2022-05-04 21:44] LABS: BACTERIA,URINE MODERATE /HPF; WBC,URINE 0-2 /HPF
[2022-05-04] MEDS ORDERED: CEPHALEXIN 250 MG (KEFLEX) CAP PO STA (21:52)
[2022-05-04] MEDS ORDERED: CEPH500T PO (21:54)
== END 2022-05-04 22:02 | disposition home or self-care (01) ==
LOC: EDUNIT# 19:51 → ER 19:53
DX: N39.0 Urinary tract infection, site not specified (principal); R00.0 Tachycardia, unspecified; Z20.822 Contact with and (suspected) exposure to COVID-19
CPT/HCPCS: 36415; 80053; 81000; 84703; 85007; 85027; 85652; 86308; 87088; 87636; 99283